=== PATIENT | female | born 1950 | race Caucasian/White ===

== ENCOUNTER 2017-11-26 10:30 | Outpatient (RCR) | payer MEDICARE, OTHER, SELFPAY ==
--- NOTE | 2017-11-05 13:24 | PT.OTN ---
Addendum entered and electronically signed by Kristen Baker, PT 11/05/17 15:43: Transition note: On November 05, 2017 our therapy services consisting of Speech, Occupational, and Physical Therapy transitioned from the [employer] electronic documentation system to a new [employer] electronic documentation system.?? All documentation prior to November 05 can be found under [employer] saved data. From November 05 forward all medical record documentation will be in [employer]. Original Note: Physical Therapy Treatment Note PT-OP-A Visit Information Start: 11/05/17 13:11 Freq: Status: Active Protocol: Activity Type Activity Date Activity User E-Sign Co-Sign Detail Recorded Client Recorded Date Recorded By Document 11/05/17 12:12 Red Aril [id number] 11/05/17 13:24 [facility] 11/05/17 12:12 Out-Patient Physical Therapy Visit Information [Visit Information] -Visit Start Time 12:05 -Visit Stop Time 12:46 -Total Visit Minutes 41 -Visit Number 11 -Number of SYSTEMS PROGRAMMER Visits 0 PT-OP-C Subjective Start: 11/05/17 13:11 Freq: Status: Active Protocol: Activity Type Activity Date Activity User E-Sign Co-Sign Detail Recorded Client Recorded Date Recorded By Document 11/05/17 12:12 DC [id number] 11/05/17 13:24 [facility] 11/05/17 12:12 OP-PT Subjective [Patient Comments] -Patient Comments I am just spectacular today. Pt does note she did not wear her AFO today. -Patient Reported Progress Improving PT-OP-Q Treatments Start: 11/05/17 13:11 Freq: Status: Active Protocol: Activity Type Activity Date Activity User E-Sign Co-Sign Detail Recorded Client Recorded Date Recorded By Document 11/05/17 12:12 Red ArilW [id number] 11/05/17 13:24 [facility] 11/05/17 12:12 Cardio Equipment [Recumbent Bicycle] -Duration (Minutes) 6 -Resistance 6 Gym Equipment [Shuttle Recovery] Unilateral Squats -Resistance 50# -Shuttle Recovery Platform Stable -Reps/Time 5 Bilateral Squats -Resistance 87# -Shuttle Recovery Platform Stable -Reps/Time 5 [Shuttle Balance] 1 -Details Red - Wide ARMANDO, Staggered Stance, Lateral Weight Shift -Reps/Duration 10 Manual Therapy Treatment [Soft Tissue Mobilization] 2 -Body Location Right Lumbar paravertebral musculature -Mobilization Type Sustained Pressure -Intensity/Depth Moderate -Body Position Sidelying 1 -Body Location Right Quadratus Lumborum -Mobilization Type Sustained Pressure -Intensity/Depth Moderate -Body Position Sidelying [Manual Traction] Lumbar -Details Right LE long- axis traction -Body Position Supine -Reps/Duration 5 PT-OP-T Assessment and Plan Start: 11/05/17 13:11 Freq: Status: Active Protocol: Activity Type Activity Date Activity User E-Sign Co-Sign Detail Recorded Client Recorded Date Recorded By Document 11/05/17 12:12 [facility] [id number] 11/05/17 13:24 DCW 11/05/17 12:12 Physical Therapy Assessment [Rehab Potential] -Rehabilitation Potential Good [Impairments] -Impairments Activity Tolerance Balance Coordination Functional Mobility Gait Posture ROM Strength Tone [Progress Towards Goals] -Progress Towards Goals Slow Progress due to Medical Issues [Assessment Summary] -Assessment Pt continues to slowly progress toward goals, limited due to the progressive nature of MS Physical Therapy Plan [Frequency and Duration] -Frequency of Treatment 2x/Week -Plan of Care Start Date 09/10/17 -Plan of Care End Date 12/02/17 [Therapeutic Interventions] -Therapeutic Interventions Aquatic Therapy Balance Training Coordination Training Gait Training Home Exercise Program Joint Mobilizations Manual Therapy Neuromuscular Re-education Soft Tissue Mobilization Therapeutic Activities Therapeutic Exercises [Next Visit Focus/Plan] -Next Visit Plan Continued progression of POC as tolerated Current Diagnoses Multiple sclerosis (11/05/17) Difficulty in walking, not elsewhere classified (11/05/17) Unsteadiness on feet (11/05/17) Weakness (11/05/17) History of falling (11/05/17)
--- NOTE | 2017-11-07 12:52 | PT.OTN ---
Current Diagnoses Multiple sclerosis (11/07/17) Difficulty in walking, not elsewhere classified (11/07/17) Unsteadiness on feet (11/07/17) Weakness (11/07/17) History of falling (11/07/17) Physical Therapy Treatment Note PT-OP-A Visit Information Start: 11/05/17 13:11 Freq: Status: Active Protocol: Activity Type Activity Date Activity User E-Sign Co-Sign Detail Recorded Client Recorded Date Recorded By Document 11/07/17 10:40 [facility] [id number] 11/07/17 12:52 [facility] 11/07/17 10:40 Out-Patient Physical Therapy Visit Information [Visit Information] -Visit Start Time 10:30 -Visit Stop Time 11:10 -Total Visit Minutes 40 -Visit Number 12 -Number of URBAN ANTHROPOLOGIST Visits 0 [Evaluation Information] -Evaluation Date 09/10/17 PT-OP-C Subjective Start: 11/05/17 13:11 Freq: Status: Active Protocol: Activity Type Activity Date Activity User E-Sign Co-Sign Detail Recorded Client Recorded Date Recorded By Document 11/07/17 10:40 [facility] [id number] 11/07/17 12:52 [facility] 11/07/17 10:40 OP-PT Subjective [Patient Comments] -Patient Comments Pt notes she is feeling very good today -Patient Reported Progress Improving PT-OP-Q Treatments Start: 11/05/17 13:11 Freq: Status: Active Protocol: Activity Type Activity Date Activity User E-Sign Co-Sign Detail Recorded Client Recorded Date Recorded By Document 11/07/17 10:40 [facility] [id number] 11/07/17 12:52 [facility] 11/07/17 10:40 Cardio Equipment [Recumbent Bicycle] -Duration (Minutes) 6 -Resistance 6 -Seat Position 5 Gym Equipment [Shuttle Balance] 1 -Details Red - Wide ARMANDO (EO/EC), Staggered Stance -Reps/Duration 10 Manual Therapy Treatment [Soft Tissue Mobilization] 2 -Body Location Right Lumbar paravertebral musculature -Mobilization Type Sustained Pressure -Intensity/Depth Moderate -Body Position Sidelying 1 -Body Location Right Quadratus Lumborum -Mobilization Type Sustained Pressure -Intensity/Depth Moderate -Body Position Sidelying [Manual Traction] Lumbar -Details Right LE long- axis traction -Body Position Supine -Reps/Duration 10 PT-OP-T Assessment and Plan Start: 11/05/17 13:11 Freq: Status: Active Protocol: Activity Type Activity Date Activity User E-Sign Co-Sign Detail Recorded Client Recorded Date Recorded By Document 11/07/17 10:40 [facility] [id number] 11/07/17 12:52 [facility] 11/07/17 10:40 Physical Therapy Assessment [Rehab Potential] -Rehabilitation Potential Good [Impairments] -Impairments Activity Tolerance Balance Coordination Functional Activities Functional Mobility Gait Posture ROM Strength Tone [Other Concerns] -Barriers to Rehabilitation Multiple Sclerosis [Progress Towards Goals] -Progress Towards Goals Slow Progress due to Medical Issues [Assessment Summary] -Assessment Pt continues to report improved symptoms following her PT appointments , and a much easier time walking. Patient does note that it lasts through most of the day , but by the following day, her QL tightness has returned, causing hiking of her right hip. Physical Therapy Plan [Frequency and Duration] -Frequency of Treatment 2x/Week -Plan of Care Start Date 09/10/17 -Plan of Care End Date 12/02/17 [Therapeutic Interventions] -Therapeutic Interventions Aquatic Therapy Balance Training Coordination Training Gait Training Home Exercise Program Joint Mobilizations Manual Therapy Neuromuscular Re-education Soft Tissue Mobilization Therapeutic Activities Therapeutic Exercises [Next Visit Focus/Plan] -Next Visit Plan Continues STM to decrease QL tone, and address strengthening and balance training.
--- NOTE | 2017-11-12 15:20 | PT.OTN ---
Current Diagnoses Multiple sclerosis (11/12/17) Difficulty in walking, not elsewhere classified (11/12/17) Unsteadiness on feet (11/12/17) Weakness (11/12/17) History of falling (11/12/17) Physical Therapy Treatment Note PT-OP-A Visit Information Start: 11/05/17 13:11 Freq: Status: Active Protocol: Activity Type Activity Date Activity User E-Sign Co-Sign Detail Recorded Client Recorded Date Recorded By Document 11/12/17 10:30 [facility] [id number] 11/12/17 15:20 [facility] 11/12/17 10:30 Out-Patient Physical Therapy Visit Information [Visit Information] -Visit Type Treatment Note -Visit Start Time 10:30 -Visit Stop Time 11:15 -Total Visit Minutes 45 -Visit Number 13 -Number of DRAGGER OUT Visits 0 [Evaluation Information] -Evaluation Date 09/10/17 PT-OP-C Subjective Start: 11/05/17 13:11 Freq: Status: Active Protocol: Activity Type Activity Date Activity User E-Sign Co-Sign Detail Recorded Client Recorded Date Recorded By Document 11/12/17 10:30 DC [id number] 11/12/17 15:20 [facility] 11/12/17 10:30 OP-PT Subjective [Patient Comments] -Patient Comments I am splendid. Pt also reports that she knows her number of visits are limited for the year, and while she believes she is benefitting from therapy, she would also like to save some visits for the rest of the year. PT-OP-Q Treatments Start: 11/05/17 13:11 Freq: Status: Active Protocol: Activity Type Activity Date Activity User E-Sign Co-Sign Detail Recorded Client Recorded Date Recorded By Document 11/12/17 10:30 [facility] [id number] 11/12/17 15:20 [facility] 11/12/17 10:30 Cardio Equipment [Recumbent Bicycle] -Duration (Minutes) 6 -Resistance 6 -Seat Position 5 Gym Equipment [Shuttle Recovery] Unilateral Squats -Resistance 50# -Shuttle Recovery Platform Stable -Reps/Time x20 Bilateral Squats -Resistance 87# -Shuttle Recovery Platform Stable -Reps/Time x20 [Shuttle Balance] 1 -Details Red - Wide ARMANDO (EO/EC), Staggered Stance -Reps/Duration 10 Manual Therapy Treatment [Soft Tissue Mobilization] 2 -Body Location Right Lumbar paravertebral musculature -Mobilization Type Sustained Pressure -Intensity/Depth Moderate -Body Position Sidelying 1 -Body Location Right Quadratus Lumborum -Mobilization Type Sustained Pressure -Intensity/Depth Moderate -Body Position Sidelying [Manual Traction] Lumbar -Details Right LE long- axis traction -Body Position Supine -Reps/Duration 10 PT-OP-T Assessment and Plan Start: 11/05/17 13:11 Freq: Status: Active Protocol: Activity Type Activity Date Activity User E-Sign Co-Sign Detail Recorded Client Recorded Date Recorded By Document 11/12/17 10:30 [facility] [id number] 11/12/17 15:20 [facility] 11/12/17 10:30 Physical Therapy Assessment [Rehab Potential] -Rehabilitation Potential Good [Impairments] -Impairments Activity Tolerance Balance Coordination Functional Activities Functional Mobility Gait Posture ROM Strength Tone [Other Concerns] -Barriers to Rehabilitation Multiple Sclerosis [Progress Towards Goals] -Progress Towards Goals Slow Progress due to Medical Issues [Assessment Summary] -Assessment Patient and therapist discussed plan to save some remaining visits for later in the year. Both are in agreement to discharge after the next three visits. Physical Therapy Plan [Frequency and Duration] -Frequency of Treatment 2x/Week -Plan of Care Start Date 09/10/17 -Plan of Care End Date 12/02/17 [Therapeutic Interventions] -Therapeutic Interventions Aquatic Therapy Balance Training Coordination Training Gait Training Home Exercise Program Joint Mobilizations Manual Therapy Neuromuscular Re-education Soft Tissue Mobilization Therapeutic Activities Therapeutic Exercises [Next Visit Focus/Plan] -Next Visit Plan Begin to transfers from skilled therapy to [facility], continued manual therapy, balance training.
--- NOTE | 2017-11-14 13:15 | PT.OTN ---
Current Diagnoses Multiple sclerosis (11/14/17) Difficulty in walking, not elsewhere classified (11/14/17) Unsteadiness on feet (11/14/17) Weakness (11/14/17) History of falling (11/14/17) Physical Therapy Treatment Note PT-OP-A Visit Information Start: 11/05/17 13:11 Freq: Status: Active Protocol: Document 11/14/17 10:30 DCW (Rec: 11/14/17 13:14 DC[facility] [id number]) Out-Patient Physical Therapy Visit Information Visit Information Visit Type Treatment Note Visit Start Time 10:30 Visit Stop Time 11:15 Total Visit Minutes 45 Visit Number 14 Number of STRUCTURAL IRON ERECTOR Visits 0 Evaluation Information Evaluation Date 09/10/17 PT-OP-C Subjective Start: 11/05/17 13:11 Freq: Status: Active Protocol: Document 11/14/17 10:30 DCW (Rec: 11/14/17 13:14 DC[facility] [id number]) OP-PT Subjective Patient Comments Patient Comments Pt reports she had something weird happen on her way here, when she had a spasm in her neck which caused pain radiating up into her head, and it hurt so badly that she had to pull her car over. Pt notes it only lasted 30 seconds, and she is now fine. PT-OP-Q Treatments Start: 11/05/17 13:11 Freq: Status: Active Protocol: Document 11/14/17 10:30 DCW (Rec: 11/14/17 13:14 DCW [id number]) Cardio Equipment Recumbent Bicycle Duration (Minutes) 6 Resistance 6 Seat Position 5 Gym Equipment Shuttle Balance 1 Details Red - Wide ARMANDO (EO/EC), Staggered Stance Reps/Duration 10 Manual Therapy Treatment Soft Tissue Mobilization 2 Body Location Right Lumbar paravertebral musculature Mobilization Type Sustained Pressure Intensity/Depth Moderate Body Position Sidelying 1 Body Location Right Quadratus Lumborum Mobilization Type Sustained Pressure Intensity/Depth Moderate Body Position Sidelying Manual Traction Lumbar Details Right LE long-axis traction Body Position Supine Reps/Duration 12 PT-OP-T Assessment and Plan Start: 11/05/17 13:11 Freq: Status: Active Protocol: Document 11/14/17 10:30 DCW (Rec: 11/14/17 13:14 DCW [id number]) Physical Therapy Assessment Rehab Potential Rehabilitation Potential Good Impairments Impairments Activity Tolerance Balance Coordination Functional Activities Functional Mobility Gait Posture ROM Strength Tone Other Concerns Barriers to Rehabilitation Multiple Sclerosis Progress Towards Goals Progress Towards Goals Slow Progress due to Medical Issues Assessment Summary Assessment Therapist and patient reviewed her HEP today, working toward planned discharge next week. Physical Therapy Plan Frequency and Duration Frequency of Treatment 2x/Week Plan of Care Start Date 09/10/17 Plan of Care End Date 12/02/17 Therapeutic Interventions Therapeutic Interventions Aquatic Therapy Balance Training Coordination Training Gait Training Home Exercise Program Joint Mobilizations Manual Therapy Neuromuscular Re-education Soft Tissue Mobilization Therapeutic Activities Therapeutic Exercises Next Visit Focus/Plan Next Visit Plan Continue current ongoing plan of care.
--- NOTE | 2017-11-26 17:47 | PT.OTN ---
Current Diagnoses Multiple sclerosis (11/26/17) Difficulty in walking, not elsewhere classified (11/26/17) Unsteadiness on feet (11/26/17) Weakness (11/26/17) History of falling (11/26/17) Physical Therapy Treatment Note PT-OP-A Visit Information Start: 11/05/17 13:11 Freq: Status: Active Protocol: Document 11/26/17 10:30 DCW (Rec: 11/26/17 17:47 DCW [id number]) Out-Patient Physical Therapy Visit Information Visit Information Visit Type Treatment Note Visit Start Time 10:30 Visit Stop Time 11:15 Total Visit Minutes 45 Visit Number 15 Number of CLINICAL OPERATIONS MANAGER Visits 0 Evaluation Information Evaluation Date 09/10/17 PT-OP-B Current Condition Start: 11/05/17 13:11 Freq: Status: Active Protocol: Document 11/26/17 10:30 DCW (Rec: 11/26/17 17:47 DCW [id number]) Current Condition History of Current Condition Current Complaints Weakness and imbalance d/t MS History of Current Condition Please see patient's notes in Therapy [facility] for full history PT-OP-C Subjective Start: 11/05/17 13:11 Freq: Status: Active Protocol: Document 11/26/17 10:30 DCW (Rec: 11/26/17 17:47 DCW [id number]) OP-PT Subjective Patient Comments Patient Comments Pt reports she will be leaving the state for a week, and would like to end therapy one visit early. Pt was originally planning to end to conserve visits for later in the year. Patient Reported Progress Improving PT-OP-D Balance Start: 11/26/17 17:28 Freq: Status: Active Protocol: Document 11/26/17 10:30 DCW (Rec: 11/26/17 17:47 DCW [id number]) Balance Tests Eaton Balance Test Eaton Balance Test Score 53 Eaton Impairment Rating 1 to 19% Impaired (Score 45-55 ) Eaton Balance Assessment Evaluation Sitting to Standing Ability Independent w/out Hands Unsupported Stance Safely- 2 minutes Sitting Unsupported, Feet on Floor Safely- 2 minutes Standing to Sitting Ability Safely, Minimal Hand Use Transfer Ability Safely, Minimal Hand Use Unsupported Stance- Eyes Closed Safely, 10 seconds Unsupported Stance- Eyes Open Independent, 1 minute Reaching Forward Standing Confidently, 10 inches Pick- Up Object From Floor Independent/Safe Look Behind Shoulder - Standing Shifts Weight Well Turning 360 Degrees Turns Bilateral, < 4 secs Unsupported Stance, Alternating Feet on 4 Steps w/Supervision Stair Unsupported Tandem Stance Achieves Tandem Unilateral Leg Stance Lifts Leg/Holds 5-10 secs Total Score Eaton Total Score (out of 56 points) 53 Eaton Impairment Rating 1 to 19% Impaired (Score 45-55 ) PT-OP-E Functional Tests Start: 11/26/17 17:28 Freq: Status: Active Protocol: Document 11/26/17 10:30 DCW (Rec: 11/26/17 17:47 DCW [id number]) Functional Tests Dynamic Gait Index (DGI) Score 18 DGI Impairment Rating 20 to <40% Impaired (Score 15- 19) Timed Up and Go (TUG) Score 10.66 Comments 3 trial average, no AD TUG Impairment Rating 1 to <20% Impaired (Score 11) PT-OP-M Strength Start: 11/26/17 17:28 Freq: Status: Active Protocol: Document 11/26/17 10:30 DCW (Rec: 11/26/17 17:47 DCW [id number]) Hip Strength Hip Manual Muscle Testing Right Flexion (L2) 4 Good Abduction 4 Good Adduction 5 Normal Left Flexion (L2) 4+ Good+ Abduction 4+ Good+ Adduction 5 Normal Knee Strength Knee Manual Muscle Testing Right Flexion (S2) 4- Good- Extension (L3) 4+ Good+ Left Flexion (S2) 5 Normal Extension (L3) 5 Normal PT-OP-Q Treatments Start: 11/05/17 13:11 Freq: Status: Active Protocol: Document 11/26/17 10:30 DCW (Rec: 11/26/17 17:47 DCW [id number]) Cardio Equipment Recumbent Bicycle Duration (Minutes) 6 Resistance 6 Seat Position 5 Manual Therapy Treatment Soft Tissue Mobilization 2 Body Location Right Lumbar paravertebral musculature Mobilization Type Sustained Pressure Intensity/Depth Moderate Body Position Sidelying 1 Body Location Right Quadratus Lumborum Mobilization Type Sustained Pressure Intensity/Depth Moderate Body Position Sidelying Manual Traction Lumbar Details Right LE long-axis traction Body Position Supine Reps/Duration 12 Neuro Re-Education Treatment Balance Activities 1 Details Eaton, DGI, TUG testing PT-OP-T Assessment and Plan Start: 11/05/17 13:11 Freq: Status: Active Protocol: Document 11/26/17 10:30 DCW (Rec: 11/26/17 17:47 DCW [id number]) Physical Therapy Assessment Rehab Potential Rehabilitation Potential Good Impairments Impairments Activity Tolerance Balance Coordination Functional Activities Functional Mobility Gait Posture ROM Strength Tone Other Concerns Barriers to Rehabilitation Multiple Sclerosis Goals Five Impairment DGI Boy'S Adviser Goal (LTG) Pt to score at least 18/23 LTG Duration MET Four Impairment Eaton Snf Goal (LTG) Pt to score at least 52/56 LTG Duration MET Three Impairment TUG Snf Goal (LTG) Pt to score an average less than 10 seconds across three trials LTG Duration 11/26/17 Two Impairment Weakness Boy'S Adviser Goal (LTG) Pt LE hip and knee MMT to 4/5 LTG Duration 11/26/17 One Impairment Stairs Boy'S Adviser Goal (LTG) Pt to ascend stairs reciprocal gait, no railing LTG Duration 11/26/17 Progress Towards Goals Progress Towards Goals Slow Progress due to Medical Issues Progress Comments MS Assessment Summary Assessment Pt improved in all balance tests, meeting her goals for the DGI and Eaton. Due to the progressive nature of MS, full recovery is unlikely. Pt has decided to conserve remaining appointments for later in the year. Physical Therapy Plan Therapeutic Interventions Therapeutic Interventions Aquatic Therapy Balance Training Coordination Training Gait Training Home Exercise Program Joint Mobilizations Manual Therapy Neuromuscular Re-education Soft Tissue Mobilization Therapeutic Activities Therapeutic Exercises Discharge Physical Therapy Discharge Reasons Patient Request Discharge Comments Pt would like to return to therapy later in the year Next Visit Focus/Plan Next Visit Plan Discharge
== END 2017-11-27 10:51 ==
LOC: PHYS 10:30
PROVIDERS: Family Provider Internal Medicine; PCP Internal Medicine; Visit Provider Psychiatry & Neurology Neurology
DX: G35 Multiple sclerosis (principal); R26.81 Unsteadiness on feet; R53.1 Weakness; Z91.81 History of falling
CPT/HCPCS: 97110; 97112; 97140

== ENCOUNTER → 2017-12-23 12:35 | Outpatient (CLI) | payer MEDICARE, OTHER, SELFPAY ==
--- NOTE | 2017-12-23 | DI.MG.S_ITS ---
BILATERAL DIGITAL SCREENING MAMMOGRAM 3D/2D WITH CAD: 12/23/2017 CLINICAL: Patient presents for routine screening. S/P bilateral augmentation. Family history of breast cancer. Comparison is made to exams dated: 11/01/2016 mammogram, 09/07/2015 mammogram, and 08/30/2015 mammogram - [facility]. There are scattered fibroglandular elements in both breasts. Current study was also evaluated with a Computer Aided Detection (CAD) system. Right breast implant is intact. No significant masses, calcifications, or other findings are seen in either breast. There has been no significant interval change. IMPRESSION: NEGATIVE There is no mammographic evidence of malignancy. A 1 year screening mammogram is recommended. This exam was interpreted at Station ID: [id number]. NOTE: For mammograms, a report in lay terms will be sent to the patient. Approximately 15% of breast malignancies will not be visualized mammographically. In the management of a palpable breast mass, a negative mammogram must not discourage biopsy of a clinically suspicious lesion. Electronically Signed By: Raúl grimes/belinda:12/23/2017 17:51:15 letter sent: Normal Exam ACR BI-RADS Category 1: Negative [id number]
== END ==
PROVIDERS: Family Provider Internal Medicine; PCP Internal Medicine; Visit Provider Internal Medicine
DX: Z12.31 Encounter for screening mammogram for malignant neoplasm of breast (principal); Z80.3 Family history of malignant neoplasm of breast; Z98.82 Breast implant status
CPT/HCPCS: 77063; 77067

== ENCOUNTER 2018-08-06 13:45 | Outpatient (RCR) | payer MEDICARE, OTHER, SELFPAY ==
--- NOTE | 2018-04-15 13:45 | PT.OIE ---
Current Diagnoses Multiple sclerosis (04/15/18) Benign paroxysmal vertigo, right ear (04/15/18) Muscle weakness (generalized) (04/15/18) Other abnormalities of gait and mobility (04/15/18) Provider Visit Care Team Role Provider Type Erik Hernandez MD Attending Provider Physician Family Provider Primary Care Provider Specialty: Internal Medicine Address: [address] [place] [address], [facility] Email: Physical Therapy Initial Evaluation PT-OP-A Visit Information Start: 04/15/18 13:19 Freq: Status: Active Protocol: Document 04/15/18 12:10 DCW (Rec: 04/15/18 13:42 DCW [id number]) Out-Patient Physical Therapy Visit Information Visit Information Visit Type Initial Evaluation Visit Note Began ten minutes late due to paperwork Visit Start Time 12:10 Visit Stop Time 12:50 Total Visit Minutes 40 Visit Number 1 Number of FISHING GAME WARDEN Visits 0 Evaluation Information Evaluation Date 04/15/18 PT-OP-B Current Condition Start: 04/15/18 13:19 Freq: Status: Active Protocol: Document 04/15/18 12:10 DCW (Rec: 04/15/18 13:42 DCW [id number]) Current Condition History of Current Condition Onset Date Multi-year history of Multiple Sclerosis Current Complaints Right leg weakness, dizziness, gait difficulty, decreased walking tolerance History of Current Condition Pt is a 67 year old female well known to this clinic returning due to complications secondary to MS, as well as recent complaints of position- dependent vertigo. Pt reports she has been noticing that her right leg has been wasting significantly, and it has impacted her ability to walk, go out dancing, and get in and out of bed. Additionally, she has been experiencing 10-15 second bouts of dizziness when rolling in bed to her right side. Notes that her boyfriend saw my eyes shaking all over the place when I rolled over, so she was taken to the Urgent care clinic and diagnosed with BPPV, and given home exercises and Meclizine. Prior Treatments and Tests Prior history of PT, home treatment for BPPV Treatment Goals Patient/Caregiver Goals Pt wants to get back to walking increased distances without tiring out, return to dancing, and improve her ability to get her right leg in to and out of bed. Prior Functional Status Baseline Function- ADL's Modified Independent Baseline Function- Mobility Modified Independent Baseline Function- Gait Typically uses SPC, wears right AFO Current Functional Impairments (Reported) Functional Limitations- Mobility/Gait Decreased gait tolerance, becomes off-balance with quick head movements. Functional Limitations- Recreation/ Unable to go out dancing Hobbies PT-OP-C Subjective Start: 04/15/18 13:19 Freq: Status: Active Protocol: Document 04/15/18 12:10 DCW (Rec: 04/15/18 13:42 DCW [id number]) OP-PT Subjective Patient Comments Patient Comments Other than the dizziness and my right leg, I'm feeling fantastic. PT-OP-D Balance Start: 04/15/18 13:19 Freq: Status: Active Protocol: Document 04/15/18 12:10 DCW (Rec: 04/15/18 13:42 DCW [id number]) OP-PT Balance Assessment Sitting Balance Static Sitting Balance Ability Normal Dynamic Sitting Balance Ability Normal Standing Balance Static Standing Balance Ability Good Dynamic Standing Balance Ability Fair Posada Fall Scale Copyright Permission Albino JM, Albino RM, Marisabel SJ. Development of a scale to identify the fall- prone patient. Can J Aging 1989;8;366-7. Halima Posada (2009). Preventing patient falls. (2nd ed). [place]: Siddiqi. PT-OP-E Functional Tests Start: 04/15/18 13:19 Freq: Status: Active Protocol: Document 04/15/18 12:10 DCW (Rec: 04/15/18 13:42 DCW [id number]) Functional Tests Dynamic Gait Index (DGI) Score 13/24 DGI Impairment Rating 40 to <60% Impaired (Score 10- 14) Timed Up and Go (TUG) Score 10.26 Comments Three-trial average TUG Impairment Rating 1 to <20% Impaired (Score 11) PT-OP-J Posture/Palpation/Skin Start: 04/15/18 13:42 Freq: Status: Active Protocol: Document 04/15/18 12:10 DCW (Rec: 04/15/18 13:45 DCW [id number]) Palpation Assessment Location Right lower extremity Palpation Details Noticeable atrophy/muscle wasting of right LE, most notably her right calf PT-OP-M Strength Start: 04/15/18 13:42 Freq: Status: Active Protocol: Document 04/15/18 12:10 DCW (Rec: 04/15/18 13:45 DCW [id number]) Hip Strength Hip Manual Muscle Testing Right Flexion (L2) 3+ Fair+ Abduction 4- Good- Adduction 4 Good Left Flexion (L2) 4+ Good+ Abduction 4- Good- Adduction 4 Good Knee Strength Knee Manual Muscle Testing Right Flexion (S2) 4 Good Extension (L3) 4- Good- Left Flexion (S2) 4+ Good+ Extension (L3) 4+ Good+ Ankle/Foot Strength Ankle and Foot Manual Muscle Testing Right Dorsiflexion (L4) 4- Good- Plantarflexion (S1) 3+ Fair+ Left Dorsiflexion (L4) 4 Good Plantarflexion (S1) 4 Good PT-OP-O Vestibular Start: 04/15/18 13:19 Freq: Status: Active Protocol: Document 04/15/18 12:10 DCW (Rec: 04/15/18 13:42 DCW [id number]) Vestibular Assessment Positional Testing [place]-Hallpike Positive Right Negative Left < 60 Seconds PT-OP-Q Treatments Start: 04/15/18 13:19 Freq: Status: Active Protocol: Document 04/15/18 12:10 DCW (Rec: 04/15/18 13:42 DCW [id number]) Canalithic Repositioning BPPV Treatment [place] Affected Canal(s) Right posterior Reps 1 Comments Pt complained of symptoms in the first and third position, which is normally indicative of a successful treatment. PT-OP-T Assessment and Plan Start: 04/15/18 13:19 Freq: Status: Active Protocol: Document 04/15/18 12:10 DCW (Rec: 04/15/18 13:42 DCW [id number]) Physical Therapy Assessment Rehab Potential Rehabilitation Potential Good Evaluation Complexity Number of Personal Factors/Comorbidities 1-2 Number of Body Systems Impaired 4 or More Clinical Presentation at Evaluation Unstable Impairments Impairments Activity Tolerance Balance Gait Strength Tone Vestibular Other Concerns Fall Risk DGI Barriers to Rehabilitation MS Goals Four Impairment Positive right [place]-Hallpike Short Term Goal (STG) Bilateral [place]-Hallpike negative Three Impairment LE MMT Assurance Specialist Goal (LTG) Right LE MMT grossly to 4/5 LTG Duration 06/15/18 Two Impairment DGI Assurance Specialist Goal (LTG) Pt to score at least 18/23 LTG Duration 06/15/18 One Impairment Activity Participation Assurance Specialist Goal (LTG) Pt to return to dancing with boyfriend one night a week LTG Duration 06/15/18 Assessment Summary Assessment Pt presents with a decline in function from her prior discharge level secondary to Multiple Sclerosis. Additionally, during right [place] -Hallpike test, pt complained of vertigo and demonstrated up -beating, torsional nystagmus lasting approximately 5 seconds, consistent with diagnosis of right-sided posterior canal BPPV, canalithiasis-type. Treatment of her BPPV should largely help with many of her positional complaints, however when pt was previously treated at this clinic, she had on-going complaints of dizziness that were not BPPV, and likely were caused by her MS, which is unlikely to respond to vestibular therapy. Pt should also improve with LE strength, dynamic balance, and activity tolerance back to or near her prior discharge levels. Physical Therapy Plan Frequency and Duration Frequency of Treatment 2x/Week Duration of Treatment 10 weeks Plan of Care Start Date 04/15/18 Plan of Care End Date 06/24/18 Therapeutic Interventions Therapeutic Interventions Aquatic Therapy Balance Training Canalithic Repositioning Gait Training Home Exercise Program Manual Therapy Soft Tissue Mobilization Therapeutic Activities Therapeutic Exercises Vestibular Rehabilitation Next Visit Focus/Plan Next Note Type Treatment Note Next Visit Plan Reassess vestibular component, additional balance and LE testing, gait training, strengthening
--- NOTE | 2018-04-15 13:46 | PT.OPPOC ---
Current Diagnoses Multiple sclerosis (04/15/18) Benign paroxysmal vertigo, right ear (04/15/18) Muscle weakness (generalized) (04/15/18) Other abnormalities of gait and mobility (04/15/18) Provider Visit Care Team Role Provider Type Erik Hernandez MD Attending Provider Physician Family Provider Primary Care Provider Specialty: Internal Medicine Address: [address] [place] [address], [facility] Email: Plan Of Care PT-OP-T Assessment and Plan Start: 04/15/18 13:19 Freq: Status: Active Protocol: Document 04/15/18 12:10 DCW (Rec: 04/15/18 13:42 DCW [id number]) Physical Therapy Assessment Rehab Potential Rehabilitation Potential Good Evaluation Complexity Number of Personal Factors/Comorbidities 1-2 Number of Body Systems Impaired 4 or More Clinical Presentation at Evaluation Unstable Impairments Impairments Activity Tolerance Balance Gait Strength Tone Vestibular Other Concerns Fall Risk DGI Barriers to Rehabilitation MS Goals Four Impairment Positive right [place]-Hallpike Short Term Goal (STG) Bilateral [place]-Hallpike negative Three Impairment LE MMT Senior Living Goal (LTG) Right LE MMT grossly to 4/5 LTG Duration 06/15/18 Two Impairment DGI Senior Living Goal (LTG) Pt to score at least 18/23 LTG Duration 06/15/18 One Impairment Activity Participation Senior Living Goal (LTG) Pt to return to dancing with boyfriend one night a week LTG Duration 06/15/18 Assessment Summary Assessment Pt presents with a decline in function from her prior discharge level secondary to Multiple Sclerosis. Additionally, during right [place] -Hallpike test, pt complained of vertigo and demonstrated up -beating, torsional nystagmus lasting approximately 5 seconds, consistent with diagnosis of right-sided posterior canal BPPV, canalithiasis-type. Treatment of her BPPV should largely help with many of her positional complaints, however when pt was previously treated at this clinic, she had on-going complaints of dizziness that were not BPPV, and likely were caused by her MS, which is unlikely to respond to vestibular therapy. Pt should also improve with LE strength, dynamic balance, and activity tolerance back to or near her prior discharge levels. Physical Therapy Plan Frequency and Duration Frequency of Treatment 2x/Week Duration of Treatment 10 weeks Plan of Care Start Date 04/15/18 Plan of Care End Date 06/24/18 Therapeutic Interventions Therapeutic Interventions Aquatic Therapy Balance Training Canalithic Repositioning Gait Training Home Exercise Program Manual Therapy Soft Tissue Mobilization Therapeutic Activities Therapeutic Exercises Vestibular Rehabilitation Next Visit Focus/Plan Next Note Type Treatment Note Next Visit Plan Reassess vestibular component, additional balance and LE testing, gait training, strengthening Plan of Care Dates Plan of Care Start Date 04/15/18 Plan of Care End Date 06/24/18 Please Sign and Return: I have reviewed this Plan of Care and certify that the skilled therapy services above are required to meet the patient?s needs. Physician Signature Date Printed Name and Credentials Clinical Instructor Signature Printed Name and Credentials
--- NOTE | 2018-04-16 11:56 | PT.OTN ---
Current Diagnoses Multiple sclerosis (04/16/18) Physical Therapy Treatment Note PT-OP-A Visit Information Start: 04/15/18 13:19 Freq: Status: Active Protocol: Document 04/16/18 11:15 DCW (Rec: 04/16/18 11:56 DCW [id number]) Out-Patient Physical Therapy Visit Information Visit Information Visit Type Treatment Note Visit Start Time 11:15 Visit Stop Time 12:00 Total Visit Minutes 45 Visit Number 2 Number of CORE FINISHER Visits 0 Evaluation Information Evaluation Date 04/15/18 PT-OP-B Current Condition Start: 04/15/18 13:19 Freq: Status: Active Protocol: Document 04/15/18 12:10 DCW (Rec: 04/15/18 13:42 DCW [id number]) Current Condition History of Current Condition Onset Date Multi-year history of Multiple Sclerosis Current Complaints Right leg weakness, dizziness, gait difficulty, decreased walking tolerance History of Current Condition Pt is a 67 year old female well known to this clinic returning due to complications secondary to MS, as well as recent complaints of position- dependent vertigo. Pt reports she has been noticing that her right leg has been wasting significantly, and it has impacted her ability to walk, go out dancing, and get in and out of bed. Additionally, she has been experiencing 10-15 second bouts of dizziness when rolling in bed to her right side. Notes that her boyfriend saw my eyes shaking all over the place when I rolled over, so she was taken to the Urgent care clinic and diagnosed with BPPV, and given home exercises and Meclizine. Prior Treatments and Tests Prior history of PT, home treatment for BPPV Treatment Goals Patient/Caregiver Goals Pt wants to get back to walking increased distances without tiring out, return to dancing, and improve her ability to get her right leg in to and out of bed. Prior Functional Status Baseline Function- ADL's Modified Independent Baseline Function- Mobility Modified Independent Baseline Function- Gait Typically uses SPC, wears right AFO Current Functional Impairments (Reported) Functional Limitations- Mobility/Gait Decreased gait tolerance, becomes off-balance with quick head movements. Functional Limitations- Recreation/ Unable to go out dancing Hobbies PT-OP-C Subjective Start: 04/15/18 13:19 Freq: Status: Active Protocol: Document 04/16/18 11:15 DCW (Rec: 04/16/18 11:56 DCW [id number]) OP-PT Subjective Patient Comments Patient Comments My dizziness didn't really bother me last night. PT-OP-D Balance Start: 04/15/18 13:19 Freq: Status: Active Protocol: Document 04/15/18 12:10 DCW (Rec: 04/15/18 13:42 DCW [id number]) OP-PT Balance Assessment Sitting Balance Static Sitting Balance Ability Normal Dynamic Sitting Balance Ability Normal Standing Balance Static Standing Balance Ability Good Dynamic Standing Balance Ability Fair Posada Fall Scale Copyright Permission Albino JM, Albino RM, Marisabel SJ. Development of a scale to identify the fall- prone patient. Can J Aging 1989;8;366-7. Halima Posada (2009). Preventing patient falls. (2nd ed). [place]: Siddiqi. PT-OP-E Functional Tests Start: 04/15/18 13:19 Freq: Status: Active Protocol: Document 04/15/18 12:10 DCW (Rec: 04/15/18 13:42 DCW [id number]) Functional Tests Dynamic Gait Index (DGI) Score 13/24 DGI Impairment Rating 40 to <60% Impaired (Score 10- 14) Timed Up and Go (TUG) Score 10.26 Comments Three-trial average TUG Impairment Rating 1 to <20% Impaired (Score 11) PT-OP-J Posture/Palpation/Skin Start: 04/15/18 13:42 Freq: Status: Active Protocol: Document 04/15/18 12:10 DCW (Rec: 04/15/18 13:45 DCW [id number]) Palpation Assessment Location Right lower extremity Palpation Details Noticeable atrophy/muscle wasting of right LE, most notably her right calf PT-OP-M Strength Start: 04/15/18 13:42 Freq: Status: Active Protocol: Document 04/15/18 12:10 DCW (Rec: 04/15/18 13:45 DCW [id number]) Hip Strength Hip Manual Muscle Testing Right Flexion (L2) 3+ Fair+ Abduction 4- Good- Adduction 4 Good Left Flexion (L2) 4+ Good+ Abduction 4- Good- Adduction 4 Good Knee Strength Knee Manual Muscle Testing Right Flexion (S2) 4 Good Extension (L3) 4- Good- Left Flexion (S2) 4+ Good+ Extension (L3) 4+ Good+ Ankle/Foot Strength Ankle and Foot Manual Muscle Testing Right Dorsiflexion (L4) 4- Good- Plantarflexion (S1) 3+ Fair+ Left Dorsiflexion (L4) 4 Good Plantarflexion (S1) 4 Good PT-OP-O Vestibular Start: 04/15/18 13:19 Freq: Status: Active Protocol: Document 04/16/18 11:15 DCW (Rec: 04/16/18 11:56 DCW [id number]) Vestibular Assessment Positional Testing [place]-Hallpike Negative Left Negative Right PT-OP-Q Treatments Start: 04/15/18 13:19 Freq: Status: Active Protocol: Document 04/16/18 11:15 DCW (Rec: 04/16/18 11:56 DCW [id number]) Cardio Equipment Recumbent Bicycle Duration (Minutes) 5 Resistance 2 Seat Position 3 Other Without AFO Gym Equipment Shuttle Recovery Bilateral Heel Raises Resistance 75# Shuttle Recovery Platform Stable Reps/Time without AFO Unilateral Squats Resistance 50# Shuttle Recovery Platform Stable Reps/Time x20 - without AFO Bilateral Squats Resistance 87# Shuttle Recovery Platform Stable Reps/Time x20 - without AFO Therapeutic Exercises Sitting Exercises 4-way Ankle flexion Sitting Exercise Name Ankle PF/DF/Inv/Ev Side right Resistance Lv 2 Equipment Used T-band Neuro Re-Education Treatment Other Activities Hallpike testing Details Negative hallpike bilaterally PT-OP-T Assessment and Plan Start: 04/15/18 13:19 Freq: Status: Active Protocol: Document 04/16/18 11:15 DCW (Rec: 04/16/18 11:56 DCW [id number]) Physical Therapy Assessment Impairments Impairments Activity Tolerance Balance Gait Strength Tone Vestibular Goals Four Impairment Positive right [place]-Hallpike Short Term Goal (STG) Bilateral [place]-Hallpike negative Three Impairment LE MMT Long-Term Goal (LTG) Right LE MMT grossly to 4/5 LTG Duration 06/15/18 Two Impairment DGI Long-Term Goal (LTG) Pt to score at least 18/23 LTG Duration 06/15/18 One Impairment Activity Participation [place] Operator Goal (LTG) Pt to return to dancing with boyfriend one night a week LTG Duration 06/15/18 Assessment Summary Assessment Pt tolerated new exercises well, but did note her right ankle fatigued quickly. No continued symptoms of BPPV, will check periodically as indicated by pt complaints. Physical Therapy Plan Frequency and Duration Frequency of Treatment 2x/Week Duration of Treatment 10 weeks Plan of Care Start Date 04/15/18 Plan of Care End Date 06/24/18 Therapeutic Interventions Therapeutic Interventions Aquatic Therapy Balance Training Canalithic Repositioning Gait Training Home Exercise Program Manual Therapy Soft Tissue Mobilization Therapeutic Activities Therapeutic Exercises Vestibular Rehabilitation Next Visit Focus/Plan Next Note Type Treatment Note Next Visit Plan Additional balance and LE testing, gait training, strengthening
--- NOTE | 2018-04-22 11:16 | PT.OTN ---
Current Diagnoses Multiple sclerosis (04/22/18) Physical Therapy Treatment Note PT-OP-A Visit Information Start: 04/15/18 13:19 Freq: Status: Active Protocol: Document 04/22/18 10:30 DCW (Rec: 04/22/18 11:16 DCW [id number]) Out-Patient Physical Therapy Visit Information Visit Information Visit Type Treatment Note Visit Start Time 10:30 Visit Stop Time 11:15 Total Visit Minutes 45 Visit Number 3 Number of FURNACE COMBUSTION TESTER Visits 0 Evaluation Information Evaluation Date 04/15/18 PT-OP-B Current Condition Start: 04/15/18 13:19 Freq: Status: Active Protocol: Document 04/15/18 12:10 DCW (Rec: 04/15/18 13:42 DCW [id number]) Current Condition History of Current Condition Onset Date Multi-year history of Multiple Sclerosis Current Complaints Right leg weakness, dizziness, gait difficulty, decreased walking tolerance History of Current Condition Pt is a 67 year old female well known to this clinic returning due to complications secondary to MS, as well as recent complaints of position- dependent vertigo. Pt reports she has been noticing that her right leg has been wasting significantly, and it has impacted her ability to walk, go out dancing, and get in and out of bed. Additionally, she has been experiencing 10-15 second bouts of dizziness when rolling in bed to her right side. Notes that her boyfriend saw my eyes shaking all over the place when I rolled over, so she was taken to the Urgent care clinic and diagnosed with BPPV, and given home exercises and Meclizine. Prior Treatments and Tests Prior history of PT, home treatment for BPPV Treatment Goals Patient/Caregiver Goals Pt wants to get back to walking increased distances without tiring out, return to dancing, and improve her ability to get her right leg in to and out of bed. Prior Functional Status Baseline Function- ADL's Modified Independent Baseline Function- Mobility Modified Independent Baseline Function- Gait Typically uses SPC, wears right AFO Current Functional Impairments (Reported) Functional Limitations- Mobility/Gait Decreased gait tolerance, becomes off-balance with quick head movements. 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 Notes she is still sleeping on two pillows. PT-OP-D Balance Start: 04/15/18 13:19 Freq: Status: Active Protocol: Document 04/15/18 12:10 DCW (Rec: 04/15/18 13:42 DCW [id number]) OP-PT Balance Assessment Sitting Balance Static Sitting Balance Ability Normal Dynamic Sitting Balance Ability Normal Standing Balance Static Standing Balance Ability Good Dynamic Standing Balance Ability Fair Posada Fall Scale Copyright Permission Albino VINSON, Albino RM, Marisabel SJ. Development of a scale to identify the fall- prone patient. Can J Aging 1989;8;366-7. Halima Posada (2009). Preventing patient falls. (2nd ed). [place]: Siddiqi. PT-OP-E Functional Tests Start: 04/15/18 13:19 Freq: Status: Active Protocol: Document 04/15/18 12:10 DCW (Rec: 04/15/18 13:42 DCW [id number]) Functional Tests Dynamic Gait Index (DGI) Score 13/24 DGI Impairment Rating 40 to <60% Impaired (Score 10- 14) Timed Up and Go (TUG) Score 10.26 Comments Three-trial average TUG Impairment Rating 1 to <20% Impaired (Score 11) PT-OP-J Posture/Palpation/Skin Start: 04/15/18 13:42 Freq: Status: Active Protocol: Document 04/15/18 12:10 DCW (Rec: 04/15/18 13:45 DCW [id number]) Palpation Assessment Location Right lower extremity Palpation Details Noticeable atrophy/muscle wasting of right LE, most notably her right calf PT-OP-M Strength Start: 04/15/18 13:42 Freq: Status: Active Protocol: Document 04/15/18 12:10 DCW (Rec: 04/15/18 13:45 DCW [id number]) Hip Strength Hip Manual Muscle Testing Right Flexion (L2) 3+ Fair+ Abduction 4- Good- Adduction 4 Good Left Flexion (L2) 4+ Good+ Abduction 4- Good- Adduction 4 Good Knee Strength Knee Manual Muscle Testing Right Flexion (S2) 4 Good Extension (L3) 4- Good- Left Flexion (S2) 4+ Good+ Extension (L3) 4+ Good+ Ankle/Foot Strength Ankle and Foot Manual Muscle Testing Right Dorsiflexion (L4) 4- Good- Plantarflexion (S1) 3+ Fair+ Left Dorsiflexion (L4) 4 Good Plantarflexion (S1) 4 Good PT-OP-O Vestibular Start: 04/15/18 13:19 Freq: Status: Active Protocol: Document 04/16/18 11:15 DCW (Rec: 04/16/18 11:56 DCW [id number]) Vestibular Assessment Positional Testing [place]-Hallpike Negative Left Negative Right PT-OP-Q Treatments Start: 04/15/18 13:19 Freq: Status: Active Protocol: Document 04/22/18 10:30 DCW (Rec: 04/22/18 11:16 DCW [id number]) Cardio Equipment Recumbent Bicycle Duration (Minutes) 5 Resistance 2 Seat Position 3 Other Without AFO Gym Equipment Shuttle Recovery Bilateral Heel Raises Resistance 75# Shuttle Recovery Platform Stable Reps/Time without AFO Unilateral Squats Resistance 50# Shuttle Recovery Platform Stable Reps/Time x20 - without AFO Bilateral Squats Resistance 87# Shuttle Recovery Platform Stable Reps/Time x20 - without AFO Shuttle Balance 1 Details Red - Wide ARMANDO (EO/EC, head turns), Staggered Stance Therapeutic Exercises Sitting Exercises 4-way Ankle flexion Sitting Exercise Name Ankle PF/DF/Inv/Ev Side bilateral Resistance Lv 2 Equipment Used T-band Comments x20 each PT-OP-T Assessment and Plan Start: 04/15/18 13:19 Freq: Status: Active Protocol: Document 04/22/18 10:30 DCW (Rec: 04/22/18 11:16 DCW [id number]) Physical Therapy Assessment Impairments Impairments Activity Tolerance Balance Gait Strength Tone Vestibular Goals Four Impairment Positive right [place]-Hallpike Short Term Goal (STG) Bilateral [place]-Hallpike negative STG Duration 05/16/18 Three Impairment LE MMT Retirement Goal (LTG) Right LE MMT grossly to 4/5 LTG Duration 06/15/18 Two Impairment DGI Early Intervention School Psychologist Goal (LTG) Pt to score at least 18/23 LTG Duration 06/15/18 One Impairment Activity Participation Early Intervention School Psychologist Goal (LTG) Pt to return to dancing with boyfriend one night a week LTG Duration 06/15/18 Assessment Summary Assessment Pt did well today, able to demonstrate independence with her HEP. Physical Therapy Plan Frequency and Duration Frequency of Treatment 2x/Week Duration of Treatment 10 weeks Plan of Care Start Date 04/15/18 Plan of Care End Date 06/24/18 Therapeutic Interventions Therapeutic Interventions Aquatic Therapy Balance Training Canalithic Repositioning Gait Training Home Exercise Program Manual Therapy Soft Tissue Mobilization Therapeutic Activities Therapeutic Exercises Vestibular Rehabilitation Next Visit Focus/Plan Next Note Type Treatment Note Next Visit Plan Additional balance and LE testing, gait training, strengthening
--- NOTE | 2018-04-24 10:40 | PT.OTN ---
Current Diagnoses Multiple sclerosis (04/24/18) Physical Therapy Treatment Note PT-OP-A Visit Information Start: 04/15/18 13:19 Freq: Status: Active Protocol: Document 04/24/18 09:46 SAK (Rec: 04/24/18 10:31 SAK [id number]) Out-Patient Physical Therapy Visit Information Visit Information Visit Type Treatment Note Visit Start Time 09:45 Visit Stop Time 10:30 Total Visit Minutes 45 Visit Number 4 Number of SUPERVISOR COAL HANDLING Visits 0 Evaluation Information Evaluation Date 04/15/18 PT-OP-B Current Condition Start: 04/15/18 13:19 Freq: Status: Active Protocol: Document 04/15/18 12:10 DCW (Rec: 04/15/18 13:42 DCW [id number]) Current Condition History of Current Condition Onset Date Multi-year history of Multiple Sclerosis Current Complaints Right leg weakness, dizziness, gait difficulty, decreased walking tolerance History of Current Condition Pt is a 67 year old female well known to this clinic returning due to complications secondary to MS, as well as recent complaints of position- dependent vertigo. Pt reports she has been noticing that her right leg has been wasting significantly, and it has impacted her ability to walk, go out dancing, and get in and out of bed. Additionally, she has been experiencing 10-15 second bouts of dizziness when rolling in bed to her right side. Notes that her boyfriend saw my eyes shaking all over the place when I rolled over, so she was taken to the Urgent care clinic and diagnosed with BPPV, and given home exercises and Meclizine. Prior Treatments and Tests Prior history of PT, home treatment for BPPV Treatment Goals Patient/Caregiver Goals Pt wants to get back to walking increased distances without tiring out, return to dancing, and improve her ability to get her right leg in to and out of bed. Prior Functional Status Baseline Function- ADL's Modified Independent Baseline Function- Mobility Modified Independent Baseline Function- Gait Typically uses SPC, wears right AFO Current Functional Impairments (Reported) Functional Limitations- Mobility/Gait Decreased gait tolerance, becomes off-balance with quick head movements. Functional Limitations- Recreation/ Unable to go out dancing Hobbies PT-OP-C Subjective Start: 04/15/18 13:19 Freq: Status: Active Protocol: Document 04/24/18 09:46 SAK (Rec: 04/24/18 10:31 SAK [id number]) OP-PT Subjective Patient Comments Patient Comments Having difficulty with ankle ex, not sure if do PT-OP-D Balance Start: 04/15/18 13:19 Freq: Status: Active Protocol: Document 04/15/18 12:10 DCW (Rec: 04/15/18 13:42 DCW [id number]) OP-PT Balance Assessment Sitting Balance Static Sitting Balance Ability Normal Dynamic Sitting Balance Ability Normal Standing Balance Static Standing Balance Ability Good Dynamic Standing Balance Ability Fair Posada Fall Scale Copyright Permission Albino JM, Albino RM, Marisabel SJ. Development of a scale to identify the fall- prone patient. Can J Aging 1989;8;366-7. Halima Posada (2009). Preventing patient falls. (2nd ed). [place]: Siddiqi. PT-OP-E Functional Tests Start: 04/15/18 13:19 Freq: Status: Active Protocol: Document 04/15/18 12:10 DCW (Rec: 04/15/18 13:42 DCW [id number]) Functional Tests Dynamic Gait Index (DGI) Score 13/24 DGI Impairment Rating 40 to <60% Impaired (Score 10- 14) Timed Up and Go (TUG) Score 10.26 Comments Three-trial average TUG Impairment Rating 1 to <20% Impaired (Score 11) PT-OP-J Posture/Palpation/Skin Start: 04/15/18 13:42 Freq: Status: Active Protocol: Document 04/15/18 12:10 DCW (Rec: 04/15/18 13:45 DCW [id number]) Palpation Assessment Location Right lower extremity Palpation Details Noticeable atrophy/muscle wasting of right LE, most notably her right calf PT-OP-M Strength Start: 04/15/18 13:42 Freq: Status: Active Protocol: Document 04/15/18 12:10 DCW (Rec: 04/15/18 13:45 DCW [id number]) Hip Strength Hip Manual Muscle Testing Right Flexion (L2) 3+ Fair+ Abduction 4- Good- Adduction 4 Good Left Flexion (L2) 4+ Good+ Abduction 4- Good- Adduction 4 Good Knee Strength Knee Manual Muscle Testing Right Flexion (S2) 4 Good Extension (L3) 4- Good- Left Flexion (S2) 4+ Good+ Extension (L3) 4+ Good+ Ankle/Foot Strength Ankle and Foot Manual Muscle Testing Right Dorsiflexion (L4) 4- Good- Plantarflexion (S1) 3+ Fair+ Left Dorsiflexion (L4) 4 Good Plantarflexion (S1) 4 Good PT-OP-O Vestibular Start: 04/15/18 13:19 Freq: Status: Active Protocol: Document 04/16/18 11:15 DCW (Rec: 04/16/18 11:56 DCW [id number]) Vestibular Assessment Positional Testing [place]-Hallpike Negative Left Negative Right PT-OP-Q Treatments Start: 04/15/18 13:19 Freq: Status: Active Protocol: Document 04/24/18 09:46 SAK (Rec: 04/24/18 10:31 SAK [id number]) Cardio Equipment Recumbent Bicycle Duration (Minutes) 5 Resistance 2 Seat Position 3 Other Without AFO Gym Equipment Shuttle Recovery Unilateral Squats Resistance 50# Shuttle Recovery Platform Stable Reps/Time x20 - without AFO Bilateral Squats Resistance 87# Shuttle Recovery Platform Stable Reps/Time x20 - without AFO Shuttle Balance 1 Details Red - Wide ARMANDO (EO/EC, head turns), Staggered Stance Therapeutic Exercises Sitting Exercises 4-way Ankle flexion Sitting Exercise Name Ankle PF/DF/Inv/Ev Side bilateral Resistance Lv 2 Equipment Used T-band Comments x20 each Standing Exercises heel/toe raise Reps/Minutes 10 Comments parallel bars Therapeutic Activity Therapeutic Activity sit to stand Reps/Minutes 5x Comments 13 sec Neuro Re-Education Treatment Balance Activities turning Surface firm, level Comments parallel bars tandem stand, SLS Surface firm, level Comments parallel bars PT-OP-T Assessment and Plan Start: 04/15/18 13:19 Freq: Status: Active Protocol: Document 04/24/18 09:46 SAK (Rec: 04/24/18 10:31 [facility] [id number]) Physical Therapy Assessment Goals Four Impairment Positive right [place]-Hallpike Short Term Goal (STG) Bilateral [place]-Hallpike negative STG Duration 05/16/18 Three Impairment LE MMT Dance Coach Goal (LTG) Right LE MMT grossly to 4/5 LTG Duration 06/15/18 Two Impairment DGI Dance Coach Goal (LTG) Pt to score at least 18/23 LTG Duration 06/15/18 One Impairment Activity Participation Dance Coach Goal (LTG) Pt to return to dancing with boyfriend one night a week LTG Duration 06/15/18 Assessment Summary Assessment Patient initially demonstrated bracing of right LE against left for sit to stand, able to correct with cues for decreased compensation. Verbal and manual cues also for right LE alignment and control wilth ex bike, shuttle leg press. Physical Therapy Plan Frequency and Duration Frequency of Treatment 2x/Week Duration of Treatment 10 weeks Plan of Care Start Date 04/15/18 Plan of Care End Date 06/24/18 Therapeutic Interventions Therapeutic Interventions Aquatic Therapy Balance Training Canalithic Repositioning Gait Training Home Exercise Program Manual Therapy Soft Tissue Mobilization Therapeutic Activities Therapeutic Exercises Vestibular Rehabilitation Next Visit Focus/Plan Next Note Type Treatment Note Next Visit Plan Progress balance, gait, strengthening including adding clamshells, challenged gait activities.
--- NOTE | 2018-04-29 16:45 | PT.OTN ---
Current Diagnoses Multiple sclerosis (04/29/18) Physical Therapy Treatment Note PT-OP-A Visit Information Start: 04/15/18 13:19 Freq: Status: Active Protocol: Document 04/29/18 10:33 SAK (Rec: 04/29/18 11:16 SAK [id number]) Out-Patient Physical Therapy Visit Information Visit Information Visit Type Treatment Note Visit Start Time 10:30 Visit Stop Time 11:14 Total Visit Minutes 44 Visit Number 5 Number of ADJUTANT GENERAL Visits 0 Evaluation Information Evaluation Date 04/15/18 PT-OP-B Current Condition Start: 04/15/18 13:19 Freq: Status: Active Protocol: Document 04/15/18 12:10 DCW (Rec: 04/15/18 13:42 DCW [id number]) Current Condition History of Current Condition Onset Date Multi-year history of Multiple Sclerosis Current Complaints Right leg weakness, dizziness, gait difficulty, decreased walking tolerance History of Current Condition Pt is a 67 year old female well known to this clinic returning due to complications secondary to MS, as well as recent complaints of position- dependent vertigo. Pt reports she has been noticing that her right leg has been wasting significantly, and it has impacted her ability to walk, go out dancing, and get in and out of bed. Additionally, she has been experiencing 10-15 second bouts of dizziness when rolling in bed to her right side. Notes that her boyfriend saw my eyes shaking all over the place when I rolled over, so she was taken to the Urgent care clinic and diagnosed with BPPV, and given home exercises and Meclizine. Prior Treatments and Tests Prior history of PT, home treatment for BPPV Treatment Goals Patient/Caregiver Goals Pt wants to get back to walking increased distances without tiring out, return to dancing, and improve her ability to get her right leg in to and out of bed. Prior Functional Status Baseline Function- ADL's Modified Independent Baseline Function- Mobility Modified Independent Baseline Function- Gait Typically uses SPC, wears right AFO Current Functional Impairments (Reported) Functional Limitations- Mobility/Gait Decreased gait tolerance, becomes off-balance with quick head movements. Functional Limitations- Recreation/ Unable to go out dancing Hobbies PT-OP-C Subjective Start: 04/15/18 13:19 Freq: Status: Active Protocol: Document 04/29/18 10:33 SAK (Rec: 04/29/18 11:16 SAK [id number]) OP-PT Subjective Patient Comments Patient Comments Doing a little better with ankle exercises PT-OP-D Balance Start: 04/15/18 13:19 Freq: Status: Active Protocol: Document 04/15/18 12:10 DCW (Rec: 04/15/18 13:42 DCW [id number]) OP-PT Balance Assessment Sitting Balance Static Sitting Balance Ability Normal Dynamic Sitting Balance Ability Normal Standing Balance Static Standing Balance Ability Good Dynamic Standing Balance Ability Fair Posada Fall Scale Copyright Permission Albino JM, Albino RM, Marisabel SJ. Development of a scale to identify the fall- prone patient. Can J Aging 1989;8;366-7. Halima Posada (2009). Preventing patient falls. (2nd ed). [place]: Siddiqi. PT-OP-E Functional Tests Start: 04/15/18 13:19 Freq: Status: Active Protocol: Document 04/15/18 12:10 DCW (Rec: 04/15/18 13:42 DCW [id number]) Functional Tests Dynamic Gait Index (DGI) Score 13/24 DGI Impairment Rating 40 to <60% Impaired (Score 10- 14) Timed Up and Go (TUG) Score 10.26 Comments Three-trial average TUG Impairment Rating 1 to <20% Impaired (Score 11) PT-OP-J Posture/Palpation/Skin Start: 04/15/18 13:42 Freq: Status: Active Protocol: Document 04/15/18 12:10 DCW (Rec: 04/15/18 13:45 DCW [id number]) Palpation Assessment Location Right lower extremity Palpation Details Noticeable atrophy/muscle wasting of right LE, most notably her right calf PT-OP-M Strength Start: 04/15/18 13:42 Freq: Status: Active Protocol: Document 04/15/18 12:10 DCW (Rec: 04/15/18 13:45 DCW [id number]) Hip Strength Hip Manual Muscle Testing Right Flexion (L2) 3+ Fair+ Abduction 4- Good- Adduction 4 Good Left Flexion (L2) 4+ Good+ Abduction 4- Good- Adduction 4 Good Knee Strength Knee Manual Muscle Testing Right Flexion (S2) 4 Good Extension (L3) 4- Good- Left Flexion (S2) 4+ Good+ Extension (L3) 4+ Good+ Ankle/Foot Strength Ankle and Foot Manual Muscle Testing Right Dorsiflexion (L4) 4- Good- Plantarflexion (S1) 3+ Fair+ Left Dorsiflexion (L4) 4 Good Plantarflexion (S1) 4 Good PT-OP-O Vestibular Start: 04/15/18 13:19 Freq: Status: Active Protocol: Document 04/16/18 11:15 DCW (Rec: 04/16/18 11:56 DCW [id number]) Vestibular Assessment Positional Testing [place]-Hallpike Negative Left Negative Right PT-OP-Q Treatments Start: 04/15/18 13:19 Freq: Status: Active Protocol: Document 04/29/18 10:33 SAK (Rec: 04/29/18 11:16 SAK [id number]) Cardio Equipment Recumbent Elliptical (Biodex) Duration (Minutes) 6 Resistance 1 Seat Position 8 Other without AFO Gym Equipment Shuttle Recovery Bilateral Heel Raises Resistance 75# Shuttle Recovery Platform Stable Reps/Time without AFO Unilateral Squats Resistance 50# Shuttle Recovery Platform Stable Reps/Time x20 - without AFO Bilateral Squats Resistance 87# Shuttle Recovery Platform Stable Reps/Time x20 - without AFO Shuttle Balance balance with perturbations Details chains yellow throw against rebounder Details chains yellow Comments large ball, 2-handed throw/ catch 1 Details Red - Wide ARMANDO (EO/EC, head turns), Staggered Stance Therapeutic Exercises Standing Exercises sidestepping Reps/Minutes 2 min PT-OP-T Assessment and Plan Start: 04/15/18 13:19 Freq: Status: Active Protocol: Document 04/29/18 10:33 JENNIFER (Rec: 04/29/18 16:43 [facility] [id number]) Physical Therapy Assessment Impairments Impairments Activity Tolerance Balance Gait Strength Tone Vestibular Goals Four Impairment Positive right [place]-Hallpike Short Term Goal (STG) Bilateral [place]-Hallpike negative STG Duration 05/16/18 Three Impairment LE MMT Power Engineer Goal (LTG) Right LE MMT grossly to 4/5 LTG Duration 06/15/18 Two Impairment DGI Power Engineer Goal (LTG) Pt to score at least 18/23 LTG Duration 06/15/18 One Impairment Activity Participation Power Engineer Goal (LTG) Pt to return to dancing with boyfriend one night a week LTG Duration 06/15/18 Assessment Summary Assessment Patient needed cues to repeat sit to stand from waiting room chair due to compensation as previously. With cues able to do sit to stand without bracing right LE against left. LOB x 1 backward initially with sidestepping requiring mod assist Physical Therapy Plan Frequency and Duration Frequency of Treatment 2x/Week Duration of Treatment 10 weeks Plan of Care Start Date 04/15/18 Plan of Care End Date 06/24/18 Therapeutic Interventions Therapeutic Interventions Aquatic Therapy Balance Training Canalithic Repositioning Gait Training Home Exercise Program Manual Therapy Soft Tissue Mobilization Therapeutic Activities Therapeutic Exercises Vestibular Rehabilitation Next Visit Focus/Plan Next Note Type Treatment Note Next Visit Plan add honey
--- NOTE | 2018-05-01 10:29 | PT.OTN ---
Current Diagnoses Multiple sclerosis (05/01/18) Physical Therapy Treatment Note PT-OP-A Visit Information Start: 04/15/18 13:19 Freq: Status: Active Protocol: Document 05/01/18 09:49 SAK (Rec: 05/01/18 10:28 SAK [id number]) Out-Patient Physical Therapy Visit Information Visit Information Visit Type Treatment Note Visit Start Time 09:40 Visit Stop Time 10:25 Total Visit Minutes 45 Visit Number 6 Number of NUCLEAR PLANT INSTRUMENT TECHNICIAN Visits 0 Evaluation Information Evaluation Date 04/15/18 PT-OP-B Current Condition Start: 04/15/18 13:19 Freq: Status: Active Protocol: Document 04/15/18 12:10 DCW (Rec: 04/15/18 13:42 DCW [id number]) Current Condition History of Current Condition Onset Date Multi-year history of Multiple Sclerosis Current Complaints Right leg weakness, dizziness, gait difficulty, decreased walking tolerance History of Current Condition Pt is a 67 year old female well known to this clinic returning due to complications secondary to MS, as well as recent complaints of position- dependent vertigo. Pt reports she has been noticing that her right leg has been wasting significantly, and it has impacted her ability to walk, go out dancing, and get in and out of bed. Additionally, she has been experiencing 10-15 second bouts of dizziness when rolling in bed to her right side. Notes that her boyfriend saw my eyes shaking all over the place when I rolled over, so she was taken to the Urgent care clinic and diagnosed with BPPV, and given home exercises and Meclizine. Prior Treatments and Tests Prior history of PT, home treatment for BPPV Treatment Goals Patient/Caregiver Goals Pt wants to get back to walking increased distances without tiring out, return to dancing, and improve her ability to get her right leg in to and out of bed. Prior Functional Status Baseline Function- ADL's Modified Independent Baseline Function- Mobility Modified Independent Baseline Function- Gait Typically uses SPC, wears right AFO Current Functional Impairments (Reported) Functional Limitations- Mobility/Gait Decreased gait tolerance, becomes off-balance with quick head movements. Functional Limitations- Recreation/ Unable to go out dancing Hobbies PT-OP-C Subjective Start: 04/15/18 13:19 Freq: Status: Active Protocol: Document 05/01/18 09:49 SAK (Rec: 05/01/18 10:28 SAK [id number]) OP-PT Subjective Patient Comments Patient Comments Some pins and needles feelings in her LE's yesterday. Balance still off but not as bad. Reports difficulty lifting her right leg up with gait. PT-OP-D Balance Start: 04/15/18 13:19 Freq: Status: Active Protocol: Document 04/15/18 12:10 DCW (Rec: 04/15/18 13:42 DCW [id number]) OP-PT Balance Assessment Sitting Balance Static Sitting Balance Ability Normal Dynamic Sitting Balance Ability Normal Standing Balance Static Standing Balance Ability Good Dynamic Standing Balance Ability Fair Posada Fall Scale Copyright Permission Albino VINSON, Albino RM, Marisabel SJ. Development of a scale to identify the fall- prone patient. Can J Aging 1989;8;366-7. Halima Posada (2009). Preventing patient falls. (2nd ed). [place]: Siddiqi. PT-OP-E Functional Tests Start: 04/15/18 13:19 Freq: Status: Active Protocol: Document 04/15/18 12:10 DCW (Rec: 04/15/18 13:42 DCW [id number]) Functional Tests Dynamic Gait Index (DGI) Score 13/24 DGI Impairment Rating 40 to <60% Impaired (Score 10- 14) Timed Up and Go (TUG) Score 10.26 Comments Three-trial average TUG Impairment Rating 1 to <20% Impaired (Score 11) PT-OP-J Posture/Palpation/Skin Start: 04/15/18 13:42 Freq: Status: Active Protocol: Document 04/15/18 12:10 DCW (Rec: 04/15/18 13:45 DCW [id number]) Palpation Assessment Location Right lower extremity Palpation Details Noticeable atrophy/muscle wasting of right LE, most notably her right calf PT-OP-M Strength Start: 04/15/18 13:42 Freq: Status: Active Protocol: Document 04/15/18 12:10 DCW (Rec: 04/15/18 13:45 DCW [id number]) Hip Strength Hip Manual Muscle Testing Right Flexion (L2) 3+ Fair+ Abduction 4- Good- Adduction 4 Good Left Flexion (L2) 4+ Good+ Abduction 4- Good- Adduction 4 Good Knee Strength Knee Manual Muscle Testing Right Flexion (S2) 4 Good Extension (L3) 4- Good- Left Flexion (S2) 4+ Good+ Extension (L3) 4+ Good+ Ankle/Foot Strength Ankle and Foot Manual Muscle Testing Right Dorsiflexion (L4) 4- Good- Plantarflexion (S1) 3+ Fair+ Left Dorsiflexion (L4) 4 Good Plantarflexion (S1) 4 Good PT-OP-O Vestibular Start: 04/15/18 13:19 Freq: Status: Active Protocol: Document 04/16/18 11:15 DCW (Rec: 04/16/18 11:56 DCW [id number]) Vestibular Assessment Positional Testing Seym[place]-Hallpike Negative Left Negative Right PT-OP-Q Treatments Start: 04/15/18 13:19 Freq: Status: Active Protocol: Document 05/01/18 09:49 [facility] (Rec: 05/01/18 10:28 [facility] [id number]) Cardio Equipment Recumbent Elliptical ([employer]) Duration (Minutes) 10 Resistance 1 Seat Position 8 Other without AFO Gym Equipment Shuttle Recovery Bilateral Heel Raises Resistance 75# Shuttle Recovery Platform Stable Reps/Time without AFO Unilateral Squats Resistance 50 Shuttle Recovery Platform Unstable Reps/Time x20 - without AFO Bilateral Squats Resistance 87# Shuttle Recovery Platform Unstable Reps/Time x20 - without AFO Therapeutic Exercises Sitting Exercises 4-way Ankle flexion Sitting Exercise Name Ankle PF/DF/Inv/Ev Side bilateral Resistance Lv 1 Equipment Used T-band Comments x20 each Neuro Re-Education Treatment Balance Activities hurdles Comments parallel bars: 2 steps in between, 1 step in between, sideways tandem stand, SLS Surface firm, level Comments parallel bars PT-OP-T Assessment and Plan Start: 04/15/18 13:19 Freq: Status: Active Protocol: Document 05/01/18 09:49 [facility] (Rec: 05/01/18 10:28 [facility] [id number]) Physical Therapy Assessment Impairments Impairments Activity Tolerance Balance Gait Strength Tone Vestibular Goals Four Impairment Positive right Seymour-Hallpike Short Term Goal (STG) Bilateral Seymour-Hallpike negative STG Duration 05/16/18 Three Impairment LE MMT Semiconductor Wafers Marker Goal (LTG) Right LE MMT grossly to 4/5 LTG Duration 06/15/18 Two Impairment DGI Shelter Goal (LTG) Pt to score at least 18/23 LTG Duration 06/15/18 One Impairment Activity Participation Semiconductor Wafers Marker Goal (LTG) Pt to return to dancing with boyfriend one night a week LTG Duration 06/15/18 Assessment Summary Assessment Improving awareness of her compensatory patterns, improved foot clearance with hurdles with practice; patient willing to challenge her balance. Highly motivated, compliant to HEP. Physical Therapy Plan Frequency and Duration Frequency of Treatment 2x/Week Duration of Treatment 10 weeks Plan of Care Start Date 04/15/18 Plan of Care End Date 06/24/18 Therapeutic Interventions Therapeutic Interventions Aquatic Therapy Balance Training Canalithic Repositioning Gait Training Home Exercise Program Manual Therapy Soft Tissue Mobilization Therapeutic Activities Therapeutic Exercises Vestibular Rehabilitation Next Visit Focus/Plan Next Note Type Treatment Note Next Visit Plan shawn méndez
--- NOTE | 2018-05-06 11:12 | PT.OTN ---
Current Diagnoses Multiple sclerosis (05/06/18) Physical Therapy Treatment Note PT-OP-A Visit Information Start: 04/15/18 13:19 Freq: Status: Active Protocol: Document 05/06/18 10:30 DCW (Rec: 05/06/18 11:12 DCW [id number]) Out-Patient Physical Therapy Visit Information Visit Information Visit Type Treatment Note Visit Start Time 09:40 Visit Stop Time 10:25 Total Visit Minutes 45 Visit Number 6 Number of OENOLOGIST Visits 0 Evaluation Information Evaluation Date 04/15/18 PT-OP-B Current Condition Start: 04/15/18 13:19 Freq: Status: Active Protocol: Document 04/15/18 12:10 DCW (Rec: 04/15/18 13:42 DCW [id number]) Current Condition History of Current Condition Onset Date Multi-year history of Multiple Sclerosis Current Complaints Right leg weakness, dizziness, gait difficulty, decreased walking tolerance History of Current Condition Pt is a 67 year old female well known to this clinic returning due to complications secondary to MS, as well as recent complaints of position- dependent vertigo. Pt reports she has been noticing that her right leg has been wasting significantly, and it has impacted her ability to walk, go out dancing, and get in and out of bed. Additionally, she has been experiencing 10-15 second bouts of dizziness when rolling in bed to her right side. Notes that her boyfriend saw my eyes shaking all over the place when I rolled over, so she was taken to the Urgent care clinic and diagnosed with BPPV, and given home exercises and Meclizine. Prior Treatments and Tests Prior history of PT, home treatment for BPPV Treatment Goals Patient/Caregiver Goals Pt wants to get back to walking increased distances without tiring out, return to dancing, and improve her ability to get her right leg in to and out of bed. Prior Functional Status Baseline Function- ADL's Modified Independent Baseline Function- Mobility Modified Independent Baseline Function- Gait Typically uses SPC, wears right AFO Current Functional Impairments (Reported) Functional Limitations- Mobility/Gait Decreased gait tolerance, becomes off-balance with quick head movements. Functional Limitations- Recreation/ Unable to go out dancing Hobbies PT-OP-C Subjective Start: 04/15/18 13:19 Freq: Status: Active Protocol: Document 05/06/18 10:30 DCW (Rec: 05/06/18 11:12 DCW [id number]) OP-PT Subjective Patient Comments Patient Comments Pt reports she has been going to her exercise class regularly. PT-OP-D Balance Start: 04/15/18 13:19 Freq: Status: Active Protocol: Document 04/15/18 12:10 DCW (Rec: 04/15/18 13:42 DCW [id number]) OP-PT Balance Assessment Sitting Balance Static Sitting Balance Ability Normal Dynamic Sitting Balance Ability Normal Standing Balance Static Standing Balance Ability Good Dynamic Standing Balance Ability Fair [place]da Fall Scale Copyright Permission Albino JM, Albino RM, Marisabel SJ. Development of a scale to identify the fall- prone patient. Can J Aging 1989;8;366-7. Halima Posada (2009). Preventing patient falls. (2nd ed). [place]: Siddiqi. PT-OP-E Functional Tests Start: 04/15/18 13:19 Freq: Status: Active Protocol: Document 04/15/18 12:10 DCW (Rec: 04/15/18 13:42 DCW [id number]) Functional Tests Dynamic Gait Index (DGI) Score 13/24 DGI Impairment Rating 40 to <60% Impaired (Score 10- 14) Timed Up and Go (TUG) Score 10.26 Comments Three-trial average TUG Impairment Rating 1 to <20% Impaired (Score 11) PT-OP-J Posture/Palpation/Skin Start: 04/15/18 13:42 Freq: Status: Active Protocol: Document 04/15/18 12:10 DCW (Rec: 04/15/18 13:45 DCW [id number]) Palpation Assessment Location Right lower extremity Palpation Details Noticeable atrophy/muscle wasting of right LE, most notably her right calf PT-OP-M Strength Start: 04/15/18 13:42 Freq: Status: Active Protocol: Document 04/15/18 12:10 DCW (Rec: 04/15/18 13:45 DCW [id number]) Hip Strength Hip Manual Muscle Testing Right Flexion (L2) 3+ Fair+ Abduction 4- Good- Adduction 4 Good Left Flexion (L2) 4+ Good+ Abduction 4- Good- Adduction 4 Good Knee Strength Knee Manual Muscle Testing Right Flexion (S2) 4 Good Extension (L3) 4- Good- Left Flexion (S2) 4+ Good+ Extension (L3) 4+ Good+ Ankle/Foot Strength Ankle and Foot Manual Muscle Testing Right Dorsiflexion (L4) 4- Good- Plantarflexion (S1) 3+ Fair+ Left Dorsiflexion (L4) 4 Good Plantarflexion (S1) 4 Good PT-OP-O Vestibular Start: 04/15/18 13:19 Freq: Status: Active Protocol: Document 04/16/18 11:15 DCW (Rec: 04/16/18 11:56 DCW [id number]) Vestibular Assessment Positional Testing [place]-Hallpike Negative Left Negative Right PT-OP-Q Treatments Start: 04/15/18 13:19 Freq: Status: Active Protocol: Document 05/06/18 10:30 DCW (Rec: 05/06/18 11:12 DCW [id number]) Cardio Equipment Recumbent Bicycle Duration (Minutes) 5 Resistance 2 Seat Position 3 Other Without AFO Gym Equipment Shuttle Recovery Bilateral Heel Raises Resistance 87# Shuttle Recovery Platform Stable Reps/Time without AFO Unilateral Squats Resistance 62# Shuttle Recovery Platform Unstable Reps/Time x20 - without AFO Bilateral Squats Resistance 100# Shuttle Recovery Platform Unstable Reps/Time x20 - without AFO Shuttle Balance throw against rebounder Details chains yellow Comments large ball, 2-handed throw/ catch 1 Details Red - Wide ARMANDO, DF/PF Therapeutic Exercises Standing Exercises Plantar flexion Standing Exercise Name PF Side bilateral Equipment Used CATHLEEN Neuro Re-Education Treatment Balance Activities hurdles Details Hurdles/foam Comments parallel bars: 1 step in between, sideways tandem stand, SLS Surface firm, level Comments parallel bars PT-OP-T Assessment and Plan Start: 04/15/18 13:19 Freq: Status: Active Protocol: Document 05/06/18 10:30 DCW (Rec: 05/06/18 11:12 DCW [id number]) Physical Therapy Assessment Impairments Impairments Activity Tolerance Balance Gait Strength Tone Vestibular Goals Four Impairment Positive right Magaly-Hallpike Short Term Goal (STG) Bilateral Magaly-Hallpike negative STG Duration 05/16/18 Three Impairment LE MMT Child Development Assistant Goal (LTG) Right LE MMT grossly to 4/5 LTG Duration 06/15/18 Two Impairment DGI Nursing Home Goal (LTG) Pt to score at least 18/23 LTG Duration 06/15/18 One Impairment Activity Participation Child Development Assistant Goal (LTG) Pt to return to dancing with boyfriend one night a week LTG Duration 06/15/18 Assessment Summary Assessment Pt improving with some of her foot control, however came today with no AFO, and is still very noticeably less stable walking without it. Physical Therapy Plan Frequency and Duration Frequency of Treatment 2x/Week Duration of Treatment 10 weeks Plan of Care Start Date 04/15/18 Plan of Care End Date 06/24/18 Therapeutic Interventions Therapeutic Interventions Aquatic Therapy Balance Training Canalithic Repositioning Gait Training Home Exercise Program Manual Therapy Soft Tissue Mobilization Therapeutic Activities Therapeutic Exercises Vestibular Rehabilitation Next Visit Focus/Plan Next Note Type Treatment Note Next Visit Plan add honey
--- NOTE | 2018-05-08 11:15 | PT.OTN ---
Current Diagnoses Multiple sclerosis (05/08/18) Physical Therapy Treatment Note PT-OP-A Visit Information Start: 04/15/18 13:19 Freq: Status: Active Protocol: Document 05/08/18 10:30 DCW (Rec: 05/08/18 11:14 DCW [id number]) Out-Patient Physical Therapy Visit Information Visit Information Visit Type Treatment Note Visit Start Time 10:30 Visit Stop Time 11:15 Total Visit Minutes 45 Visit Number 8 Number of ACTUARIAL ASSOCIATE Visits 0 Evaluation Information Evaluation Date 04/15/18 PT-OP-B Current Condition Start: 04/15/18 13:19 Freq: Status: Active Protocol: Document 04/15/18 12:10 DCW (Rec: 04/15/18 13:42 DCW [id number]) Current Condition History of Current Condition Onset Date Multi-year history of Multiple Sclerosis Current Complaints Right leg weakness, dizziness, gait difficulty, decreased walking tolerance History of Current Condition Pt is a 67 year old female well known to this clinic returning due to complications secondary to MS, as well as recent complaints of position- dependent vertigo. Pt reports she has been noticing that her right leg has been wasting significantly, and it has impacted her ability to walk, go out dancing, and get in and out of bed. Additionally, she has been experiencing 10-15 second bouts of dizziness when rolling in bed to her right side. Notes that her boyfriend saw my eyes shaking all over the place when I rolled over, so she was taken to the Urgent care clinic and diagnosed with BPPV, and given home exercises and Meclizine. Prior Treatments and Tests Prior history of PT, home treatment for BPPV Treatment Goals Patient/Caregiver Goals Pt wants to get back to walking increased distances without tiring out, return to dancing, and improve her ability to get her right leg in to and out of bed. Prior Functional Status Baseline Function- ADL's Modified Independent Baseline Function- Mobility Modified Independent Baseline Function- Gait Typically uses SPC, wears right AFO Current Functional Impairments (Reported) Functional Limitations- Mobility/Gait Decreased gait tolerance, becomes off-balance with quick head movements. Functional Limitations- Recreation/ Unable to go out dancing Hobbies PT-OP-C Subjective Start: 04/15/18 13:19 Freq: Status: Active Protocol: Document 05/08/18 10:30 DCW (Rec: 05/08/18 11:14 DCW [id number]) OP-PT Subjective Patient Comments Patient Comments PT reports she is feeling good today, despite the rain. PT-OP-D Balance Start: 04/15/18 13:19 Freq: Status: Active Protocol: Document 04/15/18 12:10 DCW (Rec: 04/15/18 13:42 DCW [id number]) OP-PT Balance Assessment Sitting Balance Static Sitting Balance Ability Normal Dynamic Sitting Balance Ability Normal Standing Balance Static Standing Balance Ability Good Dynamic Standing Balance Ability Fair Posada Fall Scale Copyright Permission Albino JM, Albino RM, Marisabel SJ. Development of a scale to identify the fall- prone patient. Can J Aging 1989;8;366-7. Halima Posada (2009). Preventing patient falls. (2nd ed). [place]: Siddiqi. PT-OP-E Functional Tests Start: 04/15/18 13:19 Freq: Status: Active Protocol: Document 04/15/18 12:10 DCW (Rec: 04/15/18 13:42 DCW [id number]) Functional Tests Dynamic Gait Index (DGI) Score 13/24 DGI Impairment Rating 40 to <60% Impaired (Score 10- 14) Timed Up and Go (TUG) Score 10.26 Comments Three-trial average TUG Impairment Rating 1 to <20% Impaired (Score 11) PT-OP-J Posture/Palpation/Skin Start: 04/15/18 13:42 Freq: Status: Active Protocol: Document 04/15/18 12:10 DCW (Rec: 04/15/18 13:45 DCW [id number]) Palpation Assessment Location Right lower extremity Palpation Details Noticeable atrophy/muscle wasting of right LE, most notably her right calf PT-OP-M Strength Start: 04/15/18 13:42 Freq: Status: Active Protocol: Document 04/15/18 12:10 DCW (Rec: 04/15/18 13:45 DCW [id number]) Hip Strength Hip Manual Muscle Testing Right Flexion (L2) 3+ Fair+ Abduction 4- Good- Adduction 4 Good Left Flexion (L2) 4+ Good+ Abduction 4- Good- Adduction 4 Good Knee Strength Knee Manual Muscle Testing Right Flexion (S2) 4 Good Extension (L3) 4- Good- Left Flexion (S2) 4+ Good+ Extension (L3) 4+ Good+ Ankle/Foot Strength Ankle and Foot Manual Muscle Testing Right Dorsiflexion (L4) 4- Good- Plantarflexion (S1) 3+ Fair+ Left Dorsiflexion (L4) 4 Good Plantarflexion (S1) 4 Good PT-OP-O Vestibular Start: 04/15/18 13:19 Freq: Status: Active Protocol: Document 04/16/18 11:15 DCW (Rec: 04/16/18 11:56 DCW [id number]) Vestibular Assessment Positional Testing [place]-Hallpike Negative Left Negative Right PT-OP-Q Treatments Start: 04/15/18 13:19 Freq: Status: Active Protocol: Document 05/08/18 10:30 DCW (Rec: 05/08/18 11:14 DCW [id number]) Cardio Equipment Recumbent Bicycle Duration (Minutes) 5 Resistance 2 Seat Position 3 Other Without AFO Gym Equipment Shuttle Recovery Unilateral Heel Raises Resistance 50# Shuttle Recovery Platform Stable Reps/Time x20 - without AFO Bilateral Heel Raises Resistance 87# Shuttle Recovery Platform Stable Reps/Time without AFO Unilateral Squats Resistance 62# Shuttle Recovery Platform Unstable Reps/Time x20 - without AFO Bilateral Squats Resistance 100# Shuttle Recovery Platform Unstable Reps/Time x20 - without AFO Shuttle Balance throw against rebounder Details chains yellow Comments large ball, 2-handed throw/ catch 1 Details Red - Wide ARMANDO (EO/EC), DF/PF Therapeutic Exercises Standing Exercises Plantar flexion Standing Exercise Name PF Side bilateral Equipment Used CATHLEEN Neuro Re-Education Treatment Balance Activities Double Leg Stance Details Semi-Tandem, Tandem Surface Goldberg Foam PT-OP-T Assessment and Plan Start: 04/15/18 13:19 Freq: Status: Active Protocol: Document 05/08/18 10:30 DCW (Rec: 05/08/18 11:14 DCW [id number]) Physical Therapy Assessment Impairments Impairments Activity Tolerance Balance Gait Strength Tone Vestibular Goals Four Impairment Positive right Magaly-Hallpike Short Term Goal (STG) Bilateral [place]-Hallpike negative STG Duration 05/16/18 Three Impairment LE MMT Kitchen Stewardess Goal (LTG) Right LE MMT grossly to 4/5 LTG Duration 06/15/18 Two Impairment DGI Kitchen Stewardess Goal (LTG) Pt to score at least 18/23 LTG Duration 06/15/18 One Impairment Activity Participation Kitchen Stewardess Goal (LTG) Pt to return to dancing with boyfriend one night a week LTG Duration 06/15/18 Assessment Summary Assessment Pt worked hard today, able to perform more activity with increased focus on her right ankle PF/DF Physical Therapy Plan Frequency and Duration Frequency of Treatment 2x/Week Duration of Treatment 10 weeks Plan of Care Start Date 04/15/18 Plan of Care End Date 06/24/18 Therapeutic Interventions Therapeutic Interventions Aquatic Therapy Balance Training Canalithic Repositioning Gait Training Home Exercise Program Manual Therapy Soft Tissue Mobilization Therapeutic Activities Therapeutic Exercises Vestibular Rehabilitation Next Visit Focus/Plan Next Note Type Treatment Note Next Visit Plan Continue current POC
--- NOTE | 2018-05-13 11:15 | PT.OTN ---
Current Diagnoses Multiple sclerosis (05/13/18) Physical Therapy Treatment Note PT-OP-A Visit Information Start: 04/15/18 13:19 Freq: Status: Active Protocol: Document 05/13/18 10:30 DCW (Rec: 05/13/18 11:15 DCW [id number]) Out-Patient Physical Therapy Visit Information Visit Information Visit Type Treatment Note Visit Start Time 10:30 Visit Stop Time 11:15 Total Visit Minutes 45 Visit Number 9 Number of FILLER FEEDER Visits 0 Evaluation Information Evaluation Date 04/15/18 PT-OP-B Current Condition Start: 04/15/18 13:19 Freq: Status: Active Protocol: Document 04/15/18 12:10 DCW (Rec: 04/15/18 13:42 DCW [id number]) Current Condition History of Current Condition Onset Date Multi-year history of Multiple Sclerosis Current Complaints Right leg weakness, dizziness, gait difficulty, decreased walking tolerance History of Current Condition Pt is a 67 year old female well known to this clinic returning due to complications secondary to MS, as well as recent complaints of position- dependent vertigo. Pt reports she has been noticing that her right leg has been wasting significantly, and it has impacted her ability to walk, go out dancing, and get in and out of bed. Additionally, she has been experiencing 10-15 second bouts of dizziness when rolling in bed to her right side. Notes that her boyfriend saw my eyes shaking all over the place when I rolled over, so she was taken to the Urgent care clinic and diagnosed with BPPV, and given home exercises and Meclizine. Prior Treatments and Tests Prior history of PT, home treatment for BPPV Treatment Goals Patient/Caregiver Goals Pt wants to get back to walking increased distances without tiring out, return to dancing, and improve her ability to get her right leg in to and out of bed. Prior Functional Status Baseline Function- ADL's Modified Independent Baseline Function- Mobility Modified Independent Baseline Function- Gait Typically uses SPC, wears right AFO Current Functional Impairments (Reported) Functional Limitations- Mobility/Gait Decreased gait tolerance, becomes off-balance with quick head movements. Functional Limitations- Recreation/ Unable to go out dancing Hobbies PT-OP-C Subjective Start: 04/15/18 13:19 Freq: Status: Active Protocol: Document 05/13/18 10:30 DCW (Rec: 05/13/18 11:15 DCW [id number]) OP-PT Subjective Patient Comments Patient Comments Pt had a good weekend, reports that she got to go dancing on Saturday night. PT-OP-D Balance Start: 04/15/18 13:19 Freq: Status: Active Protocol: Document 04/15/18 12:10 DCW (Rec: 04/15/18 13:42 DCW [id number]) OP-PT Balance Assessment Sitting Balance Static Sitting Balance Ability Normal Dynamic Sitting Balance Ability Normal Standing Balance Static Standing Balance Ability Good Dynamic Standing Balance Ability Fair Posada Fall Scale Copyright Permission Albino VINSON, Albion RM, Marisabel SJ. Development of a scale to identify the fall- prone patient. Can J Aging 1989;8;366-7. Halima Posada (2009). Preventing patient falls. (2nd ed). [place]: Siddiqi. PT-OP-E Functional Tests Start: 04/15/18 13:19 Freq: Status: Active Protocol: Document 04/15/18 12:10 DCW (Rec: 04/15/18 13:42 DCW [id number]) Functional Tests Dynamic Gait Index (DGI) Score 13/24 DGI Impairment Rating 40 to <60% Impaired (Score 10- 14) Timed Up and Go (TUG) Score 10.26 Comments Three-trial average TUG Impairment Rating 1 to <20% Impaired (Score 11) PT-OP-J Posture/Palpation/Skin Start: 04/15/18 13:42 Freq: Status: Active Protocol: Document 04/15/18 12:10 DCW (Rec: 04/15/18 13:45 DCW [id number]) Palpation Assessment Location Right lower extremity Palpation Details Noticeable atrophy/muscle wasting of right LE, most notably her right calf PT-OP-M Strength Start: 04/15/18 13:42 Freq: Status: Active Protocol: Document 04/15/18 12:10 DCW (Rec: 04/15/18 13:45 DCW [id number]) Hip Strength Hip Manual Muscle Testing Right Flexion (L2) 3+ Fair+ Abduction 4- Good- Adduction 4 Good Left Flexion (L2) 4+ Good+ Abduction 4- Good- Adduction 4 Good Knee Strength Knee Manual Muscle Testing Right Flexion (S2) 4 Good Extension (L3) 4- Good- Left Flexion (S2) 4+ Good+ Extension (L3) 4+ Good+ Ankle/Foot Strength Ankle and Foot Manual Muscle Testing Right Dorsiflexion (L4) 4- Good- Plantarflexion (S1) 3+ Fair+ Left Dorsiflexion (L4) 4 Good Plantarflexion (S1) 4 Good PT-OP-O Vestibular Start: 04/15/18 13:19 Freq: Status: Active Protocol: Document 04/16/18 11:15 DCW (Rec: 04/16/18 11:56 DCW [id number]) Vestibular Assessment Positional Testing [place]-Hallpike Negative Left Negative Right PT-OP-Q Treatments Start: 04/15/18 13:19 Freq: Status: Active Protocol: Document 05/13/18 10:30 DCW (Rec: 05/13/18 11:15 DCW [id number]) Cardio Equipment Recumbent Bicycle Duration (Minutes) 6 Resistance 2 Seat Position 3 Other Without AFO Gym Equipment Shuttle Recovery Unilateral Heel Raises Resistance 50# Shuttle Recovery Platform Stable Reps/Time x20 - without AFO Unilateral Squats Resistance 62# Shuttle Recovery Platform Unstable Reps/Time x20 - without AFO Bilateral Squats Resistance 100# Shuttle Recovery Platform Unstable Reps/Time x20 - without AFO Shuttle Balance throw against rebounder Details chains yellow Comments large ball, 2-handed throw/ catch 1 Details Red - Wide ARMANDO (EO/EC), DF/PF Neuro Re-Education Treatment Balance Activities Step up, over, retro Equipment 6 step Double Leg Stance Details Semi-Tandem, Tandem Surface Goldberg Foam tandem stand, SLS Surface firm, level Comments parallel bars PT-OP-T Assessment and Plan Start: 04/15/18 13:19 Freq: Status: Active Protocol: Document 05/13/18 10:30 DCW (Rec: 05/13/18 11:15 DCW [id number]) Physical Therapy Assessment Impairments Impairments Activity Tolerance Balance Gait Strength Tone Vestibular Goals Four Impairment Positive right [place]-Hallpike Short Term Goal (STG) Bilateral [place]-Hallpike negative STG Duration 05/16/18 Three Impairment LE MMT Correction Goal (LTG) Right LE MMT grossly to 4/5 LTG Duration 06/15/18 Two Impairment DGI Communicable Disease Specialist Goal (LTG) Pt to score at least 18/23 LTG Duration 06/15/18 One Impairment Activity Participation Correction Goal (LTG) Pt to return to dancing with boyfriend one night a week LTG Duration 06/15/18 Assessment Summary Assessment Pt did very well today, but was noticeably having a difficult time, multiple times speaking about how she just wish that I could get used to the fact that I'm not going to get better. Physical Therapy Plan Frequency and Duration Frequency of Treatment 2x/Week Duration of Treatment 10 weeks Plan of Care Start Date 04/15/18 Plan of Care End Date 06/24/18 Therapeutic Interventions Therapeutic Interventions Aquatic Therapy Balance Training Canalithic Repositioning Gait Training Home Exercise Program Manual Therapy Soft Tissue Mobilization Therapeutic Activities Therapeutic Exercises Vestibular Rehabilitation Next Visit Focus/Plan Next Note Type Treatment Note Next Visit Plan Continue current POC
--- NOTE | 2018-05-15 11:14 | PT.OTN ---
Current Diagnoses Multiple sclerosis (05/15/18) Physical Therapy Treatment Note PT-OP-A Visit Information Start: 04/15/18 13:19 Freq: Status: Active Protocol: Document 05/15/18 10:30 DCW (Rec: 05/15/18 11:12 DCW [id number]) Out-Patient Physical Therapy Visit Information Visit Information Visit Type Progress Note Visit Note 10th visit G-codes Visit Start Time 10:30 Visit Stop Time 11:15 Total Visit Minutes 45 Visit Number 10 Number of PIGMENT GRINDER Visits 0 Evaluation Information Evaluation Date 04/15/18 PT-OP-B Current Condition Start: 04/15/18 13:19 Freq: Status: Active Protocol: Document 04/15/18 12:10 DCW (Rec: 04/15/18 13:42 DCW [id number]) Current Condition History of Current Condition Onset Date Multi-year history of Multiple Sclerosis Current Complaints Right leg weakness, dizziness, gait difficulty, decreased walking tolerance History of Current Condition Pt is a 67 year old female well known to this clinic returning due to complications secondary to MS, as well as recent complaints of position- dependent vertigo. Pt reports she has been noticing that her right leg has been wasting significantly, and it has impacted her ability to walk, go out dancing, and get in and out of bed. Additionally, she has been experiencing 10-15 second bouts of dizziness when rolling in bed to her right side. Notes that her boyfriend saw my eyes shaking all over the place when I rolled over, so she was taken to the Urgent care clinic and diagnosed with BPPV, and given home exercises and Meclizine. Prior Treatments and Tests Prior history of PT, home treatment for BPPV Treatment Goals Patient/Caregiver Goals Pt wants to get back to walking increased distances without tiring out, return to dancing, and improve her ability to get her right leg in to and out of bed. Prior Functional Status Baseline Function- ADL's Modified Independent Baseline Function- Mobility Modified Independent Baseline Function- Gait Typically uses SPC, wears right AFO Current Functional Impairments (Reported) Functional Limitations- Mobility/Gait Decreased gait tolerance, becomes off-balance with quick head movements. Functional Limitations- Recreation/ Unable to go out dancing Hobbies PT-OP-C Subjective Start: 04/15/18 13:19 Freq: Status: Active Protocol: Document 05/15/18 10:30 DCW (Rec: 05/15/18 11:12 DCW [id number]) OP-PT Subjective Patient Comments Patient Comments Pt reports she feels fantastic today. PT-OP-D Balance Start: 04/15/18 13:19 Freq: Status: Active Protocol: Document 04/15/18 12:10 DCW (Rec: 04/15/18 13:42 DCW [id number]) OP-PT Balance Assessment Sitting Balance Static Sitting Balance Ability Normal Dynamic Sitting Balance Ability Normal Standing Balance Static Standing Balance Ability Good Dynamic Standing Balance Ability Fair Posada Fall Scale Copyright Permission Albino VINSON, Albino RM, Marisabel SJ. Development of a scale to identify the fall- prone patient. Can J Aging 1989;8;366-7. Halima Posada (2009). Preventing patient falls. (2nd ed). [place]: Siddiqi. PT-OP-E Functional Tests Start: 04/15/18 13:19 Freq: Status: Active Protocol: Document 04/15/18 12:10 DCW (Rec: 04/15/18 13:42 DCW [id number]) Functional Tests Dynamic Gait Index (DGI) Score 13/24 DGI Impairment Rating 40 to <60% Impaired (Score 10- 14) Timed Up and Go (TUG) Score 10.26 Comments Three-trial average TUG Impairment Rating 1 to <20% Impaired (Score 11) PT-OP-J Posture/Palpation/Skin Start: 04/15/18 13:42 Freq: Status: Active Protocol: Document 04/15/18 12:10 DCW (Rec: 04/15/18 13:45 DCW [id number]) Palpation Assessment Location Right lower extremity Palpation Details Noticeable atrophy/muscle wasting of right LE, most notably her right calf PT-OP-M Strength Start: 04/15/18 13:42 Freq: Status: Active Protocol: Document 04/15/18 12:10 DCW (Rec: 04/15/18 13:45 DCW [id number]) Hip Strength Hip Manual Muscle Testing Right Flexion (L2) 3+ Fair+ Abduction 4- Good- Adduction 4 Good Left Flexion (L2) 4+ Good+ Abduction 4- Good- Adduction 4 Good Knee Strength Knee Manual Muscle Testing Right Flexion (S2) 4 Good Extension (L3) 4- Good- Left Flexion (S2) 4+ Good+ Extension (L3) 4+ Good+ Ankle/Foot Strength Ankle and Foot Manual Muscle Testing Right Dorsiflexion (L4) 4- Good- Plantarflexion (S1) 3+ Fair+ Left Dorsiflexion (L4) 4 Good Plantarflexion (S1) 4 Good PT-OP-O Vestibular Start: 04/15/18 13:19 Freq: Status: Active Protocol: Document 04/16/18 11:15 DCW (Rec: 04/16/18 11:56 DCW [id number]) Vestibular Assessment Positional Testing [place]-Hallpike Negative Left Negative Right PT-OP-Q Treatments Start: 04/15/18 13:19 Freq: Status: Active Protocol: Document 05/15/18 10:30 DCW (Rec: 05/15/18 11:12 DCW [id number]) Cardio Equipment Recumbent Bicycle Duration (Minutes) 6 Resistance 6 Seat Position 3 Other Without AFO Gym Equipment Shuttle Recovery Unilateral Heel Raises Resistance 50# Shuttle Recovery Platform Stable Reps/Time x20 - without AFO Unilateral Squats Resistance 62# Shuttle Recovery Platform Unstable Reps/Time x20 - without AFO Bilateral Squats Resistance 100# Shuttle Recovery Platform Unstable Reps/Time x20 - without AFO Shuttle Balance throw against rebounder Details chains blue Comments large ball, 2-handed throw/ catch 1 Details Red - Wide ARMANDO (EO/EC), Staggered Stance PT-OP-T Assessment and Plan Start: 04/15/18 13:19 Freq: Status: Active Protocol: Document 05/15/18 10:30 DCW (Rec: 05/15/18 11:14 DCW [id number]) Physical Therapy Assessment Impairments Impairments Activity Tolerance Balance Gait Strength Tone Vestibular Goals Four Impairment Positive right [place]-Hallpike Short Term Goal (STG) Bilateral [place]-Hallpike negative STG Duration 05/16/18 Three Impairment LE MMT Correction Goal (LTG) Right LE MMT grossly to 4/5 LTG Duration 06/15/18 Two Impairment DGI Correction Goal (LTG) Pt to score at least 18/23 LTG Duration 06/15/18 One Impairment Activity Participation Supervisor Filling And Packing Goal (LTG) Pt to return to dancing with boyfriend one night a week LTG Duration 06/15/18 Assessment Summary Assessment Pt making slow progress, as expected with MS, however demonstrating improved stability and right LE strength Physical Therapy Plan Frequency and Duration Frequency of Treatment 2x/Week Duration of Treatment 10 weeks Plan of Care Start Date 04/15/18 Plan of Care End Date 06/24/18 Therapeutic Interventions Therapeutic Interventions Aquatic Therapy Balance Training Canalithic Repositioning Gait Training Home Exercise Program Manual Therapy Soft Tissue Mobilization Therapeutic Activities Therapeutic Exercises Vestibular Rehabilitation Next Visit Focus/Plan Next Note Type Treatment Note Next Visit Plan Continue current POC
--- NOTE | 2018-05-20 11:21 | PT.OTN ---
Current Diagnoses Multiple sclerosis (05/20/18) Physical Therapy Treatment Note PT-OP-A Visit Information Start: 04/15/18 13:19 Freq: Status: Active Protocol: Document 05/20/18 10:30 DCW (Rec: 05/20/18 11:21 DCW [id number]) Out-Patient Physical Therapy Visit Information Visit Information Visit Type Treatment Note Visit Start Time 10:30 Visit Stop Time 11:15 Total Visit Minutes 45 Visit Number 11 Number of SHUT OFF WORKER Visits 0 Evaluation Information Evaluation Date 04/15/18 PT-OP-B Current Condition Start: 04/15/18 13:19 Freq: Status: Active Protocol: Document 04/15/18 12:10 DCW (Rec: 04/15/18 13:42 DCW [id number]) Current Condition History of Current Condition Onset Date Multi-year history of Multiple Sclerosis Current Complaints Right leg weakness, dizziness, gait difficulty, decreased walking tolerance History of Current Condition Pt is a 67 year old female well known to this clinic returning due to complications secondary to MS, as well as recent complaints of position- dependent vertigo. Pt reports she has been noticing that her right leg has been wasting significantly, and it has impacted her ability to walk, go out dancing, and get in and out of bed. Additionally, she has been experiencing 10-15 second bouts of dizziness when rolling in bed to her right side. Notes that her boyfriend saw my eyes shaking all over the place when I rolled over, so she was taken to the Urgent care clinic and diagnosed with BPPV, and given home exercises and Meclizine. Prior Treatments and Tests Prior history of PT, home treatment for BPPV Treatment Goals Patient/Caregiver Goals Pt wants to get back to walking increased distances without tiring out, return to dancing, and improve her ability to get her right leg in to and out of bed. Prior Functional Status Baseline Function- ADL's Modified Independent Baseline Function- Mobility Modified Independent Baseline Function- Gait Typically uses SPC, wears right AFO Current Functional Impairments (Reported) Functional Limitations- Mobility/Gait Decreased gait tolerance, becomes off-balance with quick head movements. Functional Limitations- Recreation/ Unable to go out dancing Hobbies PT-OP-C Subjective Start: 04/15/18 13:19 Freq: Status: Active Protocol: Document 05/20/18 10:30 DCW (Rec: 05/20/18 11:21 DCW [id number]) OP-PT Subjective Patient Comments Patient Comments Pt reports that when she goes dancing on Saturday nights, she has been waking up early the following morning with increased right leg pain and fatigue. PT-OP-D Balance Start: 04/15/18 13:19 Freq: Status: Active Protocol: Document 04/15/18 12:10 DCW (Rec: 04/15/18 13:42 DCW [id number]) OP-PT Balance Assessment Sitting Balance Static Sitting Balance Ability Normal Dynamic Sitting Balance Ability Normal Standing Balance Static Standing Balance Ability Good Dynamic Standing Balance Ability Fair Posada Fall Scale Copyright Permission Albino JM, Albino RM, Marisbael SJ. Development of a scale to identify the fall- prone patient. Can J Aging 1989;8;366-7. Halima Posada (2009). Preventing patient falls. (2nd ed). [place]: Siddiqi. PT-OP-E Functional Tests Start: 04/15/18 13:19 Freq: Status: Active Protocol: Document 04/15/18 12:10 DCW (Rec: 04/15/18 13:42 DCW [id number]) Functional Tests Dynamic Gait Index (DGI) Score 13/24 DGI Impairment Rating 40 to <60% Impaired (Score 10- 14) Timed Up and Go (TUG) Score 10.26 Comments Three-trial average TUG Impairment Rating 1 to <20% Impaired (Score 11) PT-OP-J Posture/Palpation/Skin Start: 04/15/18 13:42 Freq: Status: Active Protocol: Document 04/15/18 12:10 DCW (Rec: 04/15/18 13:45 DCW [id number]) Palpation Assessment Location Right lower extremity Palpation Details Noticeable atrophy/muscle wasting of right LE, most notably her right calf PT-OP-M Strength Start: 04/15/18 13:42 Freq: Status: Active Protocol: Document 04/15/18 12:10 DCW (Rec: 04/15/18 13:45 DCW [id number]) Hip Strength Hip Manual Muscle Testing Right Flexion (L2) 3+ Fair+ Abduction 4- Good- Adduction 4 Good Left Flexion (L2) 4+ Good+ Abduction 4- Good- Adduction 4 Good Knee Strength Knee Manual Muscle Testing Right Flexion (S2) 4 Good Extension (L3) 4- Good- Left Flexion (S2) 4+ Good+ Extension (L3) 4+ Good+ Ankle/Foot Strength Ankle and Foot Manual Muscle Testing Right Dorsiflexion (L4) 4- Good- Plantarflexion (S1) 3+ Fair+ Left Dorsiflexion (L4) 4 Good Plantarflexion (S1) 4 Good PT-OP-O Vestibular Start: 04/15/18 13:19 Freq: Status: Active Protocol: Document 04/16/18 11:15 DCW (Rec: 04/16/18 11:56 DCW [id number]) Vestibular Assessment Positional Testing [place]-Hallpike Negative Left Negative Right PT-OP-Q Treatments Start: 04/15/18 13:19 Freq: Status: Active Protocol: Document 05/20/18 10:30 DCW (Rec: 05/20/18 11:21 DCW [id number]) Cardio Equipment Recumbent Bicycle Duration (Minutes) 6 Resistance 6 Seat Position 3 Other Without AFO Gym Equipment Shuttle Recovery Unilateral Heel Raises Resistance 50# Shuttle Recovery Platform Stable Reps/Time x20 - without AFO Unilateral Squats Resistance 62# Shuttle Recovery Platform Unstable Reps/Time x20 - without AFO Bilateral Squats Resistance 100# Shuttle Recovery Platform Unstable Reps/Time x20 - without AFO Shuttle Balance throw against rebounder Details chains blue Comments large ball, 2-handed throw/ catch 1 Details Red - Wide ARMANDO (EO/EC), Staggered Stance Therapeutic Exercises Standing Exercises Hip Abduction Standing Exercise Name Abduction Side bilateral Resistance Yellow Equipment Used T-band Neuro Re-Education Treatment Balance Activities Step up, over, retro Equipment 6 step PT-OP-T Assessment and Plan Start: 04/15/18 13:19 Freq: Status: Active Protocol: Document 05/20/18 10:30 DCW (Rec: 05/20/18 11:21 DCW [id number]) Physical Therapy Assessment Impairments Impairments Activity Tolerance Balance Gait Strength Tone Vestibular Goals Four Impairment Positive right [place]-Hallpike Short Term Goal (STG) Bilateral [place]-Hallpike negative STG Duration 05/16/18 Three Impairment LE MMT Long-Term Goal (LTG) Right LE MMT grossly to 4/5 LTG Duration 06/15/18 Two Impairment DGI Room Service Supervisor Goal (LTG) Pt to score at least 1823 LTG Duration 06/15/18 One Impairment Activity Participation Room Service Supervisor Goal (LTG) Pt to return to dancing with boyfriend one night a week LTG Duration 06/15/18 Assessment Summary Assessment Pt worried about not making enough progress, however she appears to be displaying increased R strength and stability. Physical Therapy Plan Frequency and Duration Frequency of Treatment 2x/Week Duration of Treatment 10 weeks Plan of Care Start Date 04/15/18 Plan of Care End Date 06/24/18 Therapeutic Interventions Therapeutic Interventions Aquatic Therapy Balance Training Canalithic Repositioning Gait Training Home Exercise Program Manual Therapy Soft Tissue Mobilization Therapeutic Activities Therapeutic Exercises Vestibular Rehabilitation Next Visit Focus/Plan Next Note Type Treatment Note Next Visit Plan Continue current POC
--- NOTE | 2018-05-22 11:12 | PT.OTN ---
Current Diagnoses Multiple sclerosis (05/22/18) Physical Therapy Treatment Note PT-OP-A Visit Information Start: 04/15/18 13:19 Freq: Status: Active Protocol: Document 05/22/18 10:30 DCW (Rec: 05/22/18 11:12 DCW [id number]) Out-Patient Physical Therapy Visit Information Visit Information Visit Type Treatment Note Visit Start Time 10:30 Visit Stop Time 11:15 Total Visit Minutes 45 Visit Number 12 Number of TEACHER OF THE SIGHT IMPAIRED Visits 0 Evaluation Information Evaluation Date 04/15/18 PT-OP-B Current Condition Start: 04/15/18 13:19 Freq: Status: Active Protocol: Document 04/15/18 12:10 DCW (Rec: 04/15/18 13:42 DCW [id number]) Current Condition History of Current Condition Onset Date Multi-year history of Multiple Sclerosis Current Complaints Right leg weakness, dizziness, gait difficulty, decreased walking tolerance History of Current Condition Pt is a 67 year old female well known to this clinic returning due to complications secondary to MS, as well as recent complaints of position- dependent vertigo. Pt reports she has been noticing that her right leg has been wasting significantly, and it has impacted her ability to walk, go out dancing, and get in and out of bed. Additionally, she has been experiencing 10-15 second bouts of dizziness when rolling in bed to her right side. Notes that her boyfriend saw my eyes shaking all over the place when I rolled over, so she was taken to the Urgent care clinic and diagnosed with BPPV, and given home exercises and Meclizine. Prior Treatments and Tests Prior history of PT, home treatment for BPPV Treatment Goals Patient/Caregiver Goals Pt wants to get back to walking increased distances without tiring out, return to dancing, and improve her ability to get her right leg in to and out of bed. Prior Functional Status Baseline Function- ADL's Modified Independent Baseline Function- Mobility Modified Independent Baseline Function- Gait Typically uses SPC, wears right AFO Current Functional Impairments (Reported) Functional Limitations- Mobility/Gait Decreased gait tolerance, becomes off-balance with quick head movements. Functional Limitations- Recreation/ Unable to go out dancing Hobbies PT-OP-C Subjective Start: 04/15/18 13:19 Freq: Status: Active Protocol: Document 05/22/18 10:30 DCW (Rec: 05/22/18 11:12 DCW [id number]) OP-PT Subjective Patient Comments Patient Comments Pt reports she has not worn her AFO today, although it is in her car, so that we don't need to worry about taking it off to exercise her ankle today. PT-OP-D Balance Start: 04/15/18 13:19 Freq: Status: Active Protocol: Document 04/15/18 12:10 DCW (Rec: 04/15/18 13:42 DCW [id number]) OP-PT Balance Assessment Sitting Balance Static Sitting Balance Ability Normal Dynamic Sitting Balance Ability Normal Standing Balance Static Standing Balance Ability Good Dynamic Standing Balance Ability Fair Posada Fall Scale Copyright Permission Albino VINSON, Albino RM, Marisabel SJ. Development of a scale to identify the fall- prone patient. Can J Aging 1989;8;366-7. Halima Posada (2009). Preventing patient falls. (2nd ed). [place]: Siddiqi. PT-OP-E Functional Tests Start: 04/15/18 13:19 Freq: Status: Active Protocol: Document 04/15/18 12:10 DCW (Rec: 04/15/18 13:42 DCW [id number]) Functional Tests Dynamic Gait Index (DGI) Score 13/24 DGI Impairment Rating 40 to <60% Impaired (Score 10- 14) Timed Up and Go (TUG) Score 10.26 Comments Three-trial average TUG Impairment Rating 1 to <20% Impaired (Score 11) PT-OP-J Posture/Palpation/Skin Start: 04/15/18 13:42 Freq: Status: Active Protocol: Document 04/15/18 12:10 DCW (Rec: 04/15/18 13:45 DCW [id number]) Palpation Assessment Location Right lower extremity Palpation Details Noticeable atrophy/muscle wasting of right LE, most notably her right calf PT-OP-M Strength Start: 04/15/18 13:42 Freq: Status: Active Protocol: Document 04/15/18 12:10 DCW (Rec: 04/15/18 13:45 DCW [id number]) Hip Strength Hip Manual Muscle Testing Right Flexion (L2) 3+ Fair+ Abduction 4- Good- Adduction 4 Good Left Flexion (L2) 4+ Good+ Abduction 4- Good- Adduction 4 Good Knee Strength Knee Manual Muscle Testing Right Flexion (S2) 4 Good Extension (L3) 4- Good- Left Flexion (S2) 4+ Good+ Extension (L3) 4+ Good+ Ankle/Foot Strength Ankle and Foot Manual Muscle Testing Right Dorsiflexion (L4) 4- Good- Plantarflexion (S1) 3+ Fair+ Left Dorsiflexion (L4) 4 Good Plantarflexion (S1) 4 Good PT-OP-O Vestibular Start: 04/15/18 13:19 Freq: Status: Active Protocol: Document 04/16/18 11:15 DCW (Rec: 04/16/18 11:56 DCW [id number]) Vestibular Assessment Positional Testing Magaly-Hallpike Negative Left Negative Right PT-OP-Q Treatments Start: 04/15/18 13:19 Freq: Status: Active Protocol: Document 05/22/18 10:30 DCW (Rec: 05/22/18 11:12 DCW [id number]) Cardio Equipment Recumbent Bicycle Duration (Minutes) 6 Resistance 6 Seat Position 3 Other Without AFO Gym Equipment Shuttle Recovery Unilateral Heel Raises Resistance 50# Shuttle Recovery Platform Stable Reps/Time x20 - without AFO Unilateral Squats Resistance 62# Shuttle Recovery Platform Unstable Reps/Time x20 - without AFO Bilateral Squats Resistance 100# Shuttle Recovery Platform Unstable Reps/Time x20 - without AFO Shuttle Balance throw against rebounder Details chains blue Comments large ball, 2-handed throw/ catch 1 Details Red - Wide ARMANDO (EO/EC), Staggered Stance Neuro Re-Education Treatment Balance Activities Step up, over, retro Equipment 6 step Comments in // bars tandem stand, SLS Surface firm, level Comments parallel bars PT-OP-T Assessment and Plan Start: 04/15/18 13:19 Freq: Status: Active Protocol: Document 05/22/18 10:30 DCW (Rec: 05/22/18 11:12 DCW [id number]) Physical Therapy Assessment Impairments Impairments Activity Tolerance Balance Gait Strength Tone Vestibular Goals Four Impairment Positive right Finley-Hallpike Short Term Goal (STG) Bilateral Finley-Hallpike negative STG Duration 05/16/18 Three Impairment LE MMT Residential Goal (LTG) Right LE MMT grossly to 4/5 LTG Duration 06/15/18 Two Impairment DGI Mail Technician Goal (LTG) Pt to score at least 18/23 LTG Duration 06/15/18 One Impairment Activity Participation Mail Technician Goal (LTG) Pt to return to dancing with boyfriend one night a week LTG Duration 06/15/18 Assessment Summary Assessment Pt requested a change in order of activities today, and performed much better than normal with her step up, over, and retro stepping on 6 step after moving it earlier in the session so she was not as fatigued. Physical Therapy Plan Frequency and Duration Frequency of Treatment 2x/Week Duration of Treatment 10 weeks Plan of Care Start Date 04/15/18 Plan of Care End Date 06/24/18 Therapeutic Interventions Therapeutic Interventions Aquatic Therapy Balance Training Canalithic Repositioning Gait Training Home Exercise Program Manual Therapy Soft Tissue Mobilization Therapeutic Activities Therapeutic Exercises Vestibular Rehabilitation Next Visit Focus/Plan Next Note Type Treatment Note Next Visit Plan Continue current POC
--- NOTE | 2018-05-27 11:15 | PT.OTN ---
Current Diagnoses Multiple sclerosis (05/27/18) Physical Therapy Treatment Note PT-OP-A Visit Information Start: 04/15/18 13:19 Freq: Status: Active Protocol: Document 05/27/18 10:30 DCW (Rec: 05/27/18 11:15 DCW [id number]) Out-Patient Physical Therapy Visit Information Visit Information Visit Type Treatment Note Visit Start Time 10:30 Visit Stop Time 11:15 Total Visit Minutes 45 Visit Number 13 Number of BILLET EXAMINER Visits 0 Evaluation Information Evaluation Date 04/15/18 PT-OP-B Current Condition Start: 04/15/18 13:19 Freq: Status: Active Protocol: Document 04/15/18 12:10 DCW (Rec: 04/15/18 13:42 DCW [id number]) Current Condition History of Current Condition Onset Date Multi-year history of Multiple Sclerosis Current Complaints Right leg weakness, dizziness, gait difficulty, decreased walking tolerance History of Current Condition Pt is a 67 year old female well known to this clinic returning due to complications secondary to MS, as well as recent complaints of position- dependent vertigo. Pt reports she has been noticing that her right leg has been wasting significantly, and it has impacted her ability to walk, go out dancing, and get in and out of bed. Additionally, she has been experiencing 10-15 second bouts of dizziness when rolling in bed to her right side. Notes that her boyfriend saw my eyes shaking all over the place when I rolled over, so she was taken to the Urgent care clinic and diagnosed with BPPV, and given home exercises and Meclizine. Prior Treatments and Tests Prior history of PT, home treatment for BPPV Treatment Goals Patient/Caregiver Goals Pt wants to get back to walking increased distances without tiring out, return to dancing, and improve her ability to get her right leg in to and out of bed. Prior Functional Status Baseline Function- ADL's Modified Independent Baseline Function- Mobility Modified Independent Baseline Function- Gait Typically uses SPC, wears right AFO Current Functional Impairments (Reported) Functional Limitations- Mobility/Gait Decreased gait tolerance, becomes off-balance with quick head movements. Functional Limitations- Recreation/ Unable to go out dancing Hobbies PT-OP-C Subjective Start: 04/15/18 13:19 Freq: Status: Active Protocol: Document 05/27/18 10:30 DCW (Rec: 05/27/18 11:15 DCW [id number]) OP-PT Subjective Patient Comments Patient Comments Pt notes that she is doing well today PT-OP-D Balance Start: 04/15/18 13:19 Freq: Status: Active Protocol: Document 04/15/18 12:10 DCW (Rec: 04/15/18 13:42 DCW [id number]) OP-PT Balance Assessment Sitting Balance Static Sitting Balance Ability Normal Dynamic Sitting Balance Ability Normal Standing Balance Static Standing Balance Ability Good Dynamic Standing Balance Ability Fair Posada Fall Scale Copyright Permission Albino JM, Albino RM, Marisabel SJ. Development of a scale to identify the fall- prone patient. Can J Aging 1989;8;366-7. Halima Posada (2009). Preventing patient falls. (2nd ed). [place]: Siddiqi. PT-OP-E Functional Tests Start: 04/15/18 13:19 Freq: Status: Active Protocol: Document 04/15/18 12:10 DCW (Rec: 04/15/18 13:42 DCW [id number]) Functional Tests Dynamic Gait Index (DGI) Score 13/24 DGI Impairment Rating 40 to <60% Impaired (Score 10- 14) Timed Up and Go (TUG) Score 10.26 Comments Three-trial average TUG Impairment Rating 1 to <20% Impaired (Score 11) PT-OP-J Posture/Palpation/Skin Start: 04/15/18 13:42 Freq: Status: Active Protocol: Document 04/15/18 12:10 DCW (Rec: 04/15/18 13:45 DCW [id number]) Palpation Assessment Location Right lower extremity Palpation Details Noticeable atrophy/muscle wasting of right LE, most notably her right calf PT-OP-M Strength Start: 04/15/18 13:42 Freq: Status: Active Protocol: Document 04/15/18 12:10 DCW (Rec: 04/15/18 13:45 DCW [id number]) Hip Strength Hip Manual Muscle Testing Right Flexion (L2) 3+ Fair+ Abduction 4- Good- Adduction 4 Good Left Flexion (L2) 4+ Good+ Abduction 4- Good- Adduction 4 Good Knee Strength Knee Manual Muscle Testing Right Flexion (S2) 4 Good Extension (L3) 4- Good- Left Flexion (S2) 4+ Good+ Extension (L3) 4+ Good+ Ankle/Foot Strength Ankle and Foot Manual Muscle Testing Right Dorsiflexion (L4) 4- Good- Plantarflexion (S1) 3+ Fair+ Left Dorsiflexion (L4) 4 Good Plantarflexion (S1) 4 Good PT-OP-O Vestibular Start: 04/15/18 13:19 Freq: Status: Active Protocol: Document 04/16/18 11:15 DCW (Rec: 04/16/18 11:56 DCW [id number]) Vestibular Assessment Positional Testing Magaly-Hallpike Negative Left Negative Right PT-OP-Q Treatments Start: 04/15/18 13:19 Freq: Status: Active Protocol: Document 05/27/18 10:30 DCW (Rec: 05/27/18 11:15 DCW [id number]) Cardio Equipment Recumbent Bicycle Duration (Minutes) 6 Resistance 6 Seat Position 3 Other Without AFO Gym Equipment Shuttle Recovery Unilateral Heel Raises Resistance 50# Shuttle Recovery Platform Stable Reps/Time x20 - without AFO Unilateral Squats Resistance 62# L, 50# R Shuttle Recovery Platform Unstable Reps/Time x20 - without AFO Bilateral Squats Resistance 100# Shuttle Recovery Platform Unstable Reps/Time x20 - without AFO Shuttle Balance throw against rebounder Details chains blue Comments large ball, 2-handed throw/ catch 1 Details Red - Wide ARMANDO (EO/EC), Staggered Stance Neuro Re-Education Treatment Balance Activities hurdles Details Hurdles/foam Comments 1 step in between, sideways PT-OP-T Assessment and Plan Start: 04/15/18 13:19 Freq: Status: Active Protocol: Document 05/27/18 10:30 DCW (Rec: 05/27/18 11:15 DCW [id number]) Physical Therapy Assessment Impairments Impairments Activity Tolerance Balance Gait Strength Tone Vestibular Goals Four Impairment Positive right Magaly-Hallpike Short Term Goal (STG) Bilateral Magaly-Hallpike negative STG Duration 05/16/18 Three Impairment LE MMT Safety Engineer Pressure Vessels Goal (LTG) Right LE MMT grossly to 4/5 LTG Duration 06/15/18 Two Impairment DGI Residential Goal (LTG) Pt to score at least 18/23 LTG Duration 06/15/18 One Impairment Activity Participation Residential Goal (LTG) Pt to return to dancing with boyfriend one night a week LTG Duration 06/15/18 Assessment Summary Assessment Pt tolerated treatment well today, no new problems or concerns. Physical Therapy Plan Frequency and Duration Frequency of Treatment 2x/Week Duration of Treatment 10 weeks Plan of Care Start Date 04/15/18 Plan of Care End Date 06/24/18 Therapeutic Interventions Therapeutic Interventions Aquatic Therapy Balance Training Canalithic Repositioning Gait Training Home Exercise Program Manual Therapy Soft Tissue Mobilization Therapeutic Activities Therapeutic Exercises Vestibular Rehabilitation Next Visit Focus/Plan Next Note Type Treatment Note Next Visit Plan Continue current POC
--- NOTE | 2018-06-03 13:28 | PT.OTN ---
Current Diagnoses Multiple sclerosis (06/03/18) Physical Therapy Treatment Note PT-OP-A Visit Information Start: 04/15/18 13:19 Freq: Status: Active Protocol: Document 06/03/18 10:30 DCW (Rec: 06/03/18 13:28 DCW [id number]) Out-Patient Physical Therapy Visit Information Visit Information Visit Type Treatment Note Visit Start Time 10:30 Visit Stop Time 11:15 Total Visit Minutes 45 Visit Number 14 Number of VISCOSITY WORKER Visits 0 Evaluation Information Evaluation Date 04/15/18 PT-OP-B Current Condition Start: 04/15/18 13:19 Freq: Status: Active Protocol: Document 04/15/18 12:10 DCW (Rec: 04/15/18 13:42 DCW [id number]) Current Condition History of Current Condition Onset Date Multi-year history of Multiple Sclerosis Current Complaints Right leg weakness, dizziness, gait difficulty, decreased walking tolerance History of Current Condition Pt is a 67 year old female well known to this clinic returning due to complications secondary to MS, as well as recent complaints of position- dependent vertigo. Pt reports she has been noticing that her right leg has been wasting significantly, and it has impacted her ability to walk, go out dancing, and get in and out of bed. Additionally, she has been experiencing 10-15 second bouts of dizziness when rolling in bed to her right side. Notes that her boyfriend saw my eyes shaking all over the place when I rolled over, so she was taken to the Urgent care clinic and diagnosed with BPPV, and given home exercises and Meclizine. Prior Treatments and Tests Prior history of PT, home treatment for BPPV Treatment Goals Patient/Caregiver Goals Pt wants to get back to walking increased distances without tiring out, return to dancing, and improve her ability to get her right leg in to and out of bed. Prior Functional Status Baseline Function- ADL's Modified Independent Baseline Function- Mobility Modified Independent Baseline Function- Gait Typically uses SPC, wears right AFO Current Functional Impairments (Reported) Functional Limitations- Mobility/Gait Decreased gait tolerance, becomes off-balance with quick head movements. Functional Limitations- Recreation/ Unable to go out dancing Hobbies PT-OP-C Subjective Start: 04/15/18 13:19 Freq: Status: Active Protocol: Document 06/03/18 10:30 DCW (Rec: 06/03/18 13:28 DCW [id number]) OP-PT Subjective Patient Comments Patient Comments Pt reports she is fantastic today. PT-OP-D Balance Start: 04/15/18 13:19 Freq: Status: Active Protocol: Document 04/15/18 12:10 DCW (Rec: 04/15/18 13:42 DCW [id number]) OP-PT Balance Assessment Sitting Balance Static Sitting Balance Ability Normal Dynamic Sitting Balance Ability Normal Standing Balance Static Standing Balance Ability Good Dynamic Standing Balance Ability Fair Posada Fall Scale Copyright Permission Albino JM, Albino RM, Marisabel SJ. Development of a scale to identify the fall- prone patient. Can J Aging 1989;8;366-7. Halima Posada (2009). Preventing patient falls. (2nd ed). [place]: Siddiqi. PT-OP-E Functional Tests Start: 04/15/18 13:19 Freq: Status: Active Protocol: Document 04/15/18 12:10 DCW (Rec: 04/15/18 13:42 DCW [id number]) Functional Tests Dynamic Gait Index (DGI) Score 13/24 DGI Impairment Rating 40 to <60% Impaired (Score 10- 14) Timed Up and Go (TUG) Score 10.26 Comments Three-trial average TUG Impairment Rating 1 to <20% Impaired (Score 11) PT-OP-J Posture/Palpation/Skin Start: 04/15/18 13:42 Freq: Status: Active Protocol: Document 04/15/18 12:10 DCW (Rec: 04/15/18 13:45 DCW [id number]) Palpation Assessment Location Right lower extremity Palpation Details Noticeable atrophy/muscle wasting of right LE, most notably her right calf PT-OP-M Strength Start: 04/15/18 13:42 Freq: Status: Active Protocol: Document 04/15/18 12:10 DCW (Rec: 04/15/18 13:45 DCW [id number]) Hip Strength Hip Manual Muscle Testing Right Flexion (L2) 3+ Fair+ Abduction 4- Good- Adduction 4 Good Left Flexion (L2) 4+ Good+ Abduction 4- Good- Adduction 4 Good Knee Strength Knee Manual Muscle Testing Right Flexion (S2) 4 Good Extension (L3) 4- Good- Left Flexion (S2) 4+ Good+ Extension (L3) 4+ Good+ Ankle/Foot Strength Ankle and Foot Manual Muscle Testing Right Dorsiflexion (L4) 4- Good- Plantarflexion (S1) 3+ Fair+ Left Dorsiflexion (L4) 4 Good Plantarflexion (S1) 4 Good PT-OP-O Vestibular Start: 04/15/18 13:19 Freq: Status: Active Protocol: Document 04/16/18 11:15 DCW (Rec: 04/16/18 11:56 DCW [id number]) Vestibular Assessment Positional Testing Magaly-Hallpike Negative Left Negative Right PT-OP-Q Treatments Start: 04/15/18 13:19 Freq: Status: Active Protocol: Document 06/03/18 10:30 DCW (Rec: 06/03/18 13:28 DCW [id number]) Cardio Equipment Recumbent Bicycle Duration (Minutes) 6 Resistance 6 Seat Position 3 Other Without AFO Gym Equipment Shuttle Recovery Unilateral Heel Raises Resistance 50# Shuttle Recovery Platform Stable Reps/Time x20 - without AFO Unilateral Squats Resistance 62# Shuttle Recovery Platform Unstable Reps/Time x20 - without AFO Bilateral Squats Resistance 100# Shuttle Recovery Platform Unstable Reps/Time x20 - without AFO Shuttle Balance throw against rebounder Details chains blue Comments large ball, 2-handed throw/ catch Therapeutic Exercises Standing Exercises sidestepping Standing Exercise Name Resisted sode-stepping Resistance Yellow Equipment Used T-band Manual Therapy Treatment Soft Tissue Mobilization 2 Body Location Right Lumbar paravertebral musculature Mobilization Type Sustained Pressure Intensity/Depth Moderate Body Position Sidelying 1 Body Location Right Quadratus Lumborum Mobilization Type Sustained Pressure Intensity/Depth Moderate Body Position Sidelying Manual Traction Lumbar Details Right LE long-axis traction Body Position Supine PT-OP-T Assessment and Plan Start: 04/15/18 13:19 Freq: Status: Active Protocol: Document 06/03/18 10:30 DCW (Rec: 06/03/18 13:28 DCW [id number]) Physical Therapy Assessment Impairments Impairments Activity Tolerance Balance Gait Strength Tone Vestibular Goals Four Impairment Positive right Magaly-Hallpike Short Term Goal (STG) Bilateral Alexis-Hallpike negative STG Duration 05/16/18 Three Impairment LE MMT Sleeper Cutter Goal (LTG) Right LE MMT grossly to 4/5 LTG Duration 12/9/18 Two Impairment DGI Sleeper Cutter Goal (LTG) Pt to score at least 18/23 LTG Duration 06/15/18 One Impairment Activity Participation Mcc Goal (LTG) Pt to return to dancing with boyfriend one night a week LTG Duration 06/15/18 Assessment Summary Assessment Began working today on pt's right-sided tightness attempting to decrease her hip hiking to improve stability. Physical Therapy Plan Frequency and Duration Frequency of Treatment 2x/Week Duration of Treatment 10 weeks Plan of Care Start Date 04/15/18 Plan of Care End Date 06/24/18 Therapeutic Interventions Therapeutic Interventions Aquatic Therapy Balance Training Canalithic Repositioning Gait Training Home Exercise Program Manual Therapy Soft Tissue Mobilization Therapeutic Activities Therapeutic Exercises Vestibular Rehabilitation Next Visit Focus/Plan Next Note Type Treatment Note Next Visit Plan Continue current POC
--- NOTE | 2018-06-05 11:13 | PT.OTN ---
Current Diagnoses Multiple sclerosis (06/05/18) Physical Therapy Treatment Note PT-OP-A Visit Information Start: 04/15/18 13:19 Freq: Status: Active Protocol: Document 06/05/18 10:30 DCW (Rec: 06/05/18 11:13 DCW [id number]) Out-Patient Physical Therapy Visit Information Visit Information Visit Type Treatment Note Visit Start Time 10:30 Visit Stop Time 11:15 Total Visit Minutes 45 Visit Number 15 Number of ASSOCIATE ATTORNEY Visits 0 Evaluation Information Evaluation Date 04/15/18 PT-OP-B Current Condition Start: 04/15/18 13:19 Freq: Status: Active Protocol: Document 04/15/18 12:10 DCW (Rec: 04/15/18 13:42 DCW [id number]) Current Condition History of Current Condition Onset Date Multi-year history of Multiple Sclerosis Current Complaints Right leg weakness, dizziness, gait difficulty, decreased walking tolerance History of Current Condition Pt is a 67 year old female well known to this clinic returning due to complications secondary to MS, as well as recent complaints of position- dependent vertigo. Pt reports she has been noticing that her right leg has been wasting significantly, and it has impacted her ability to walk, go out dancing, and get in and out of bed. Additionally, she has been experiencing 10-15 second bouts of dizziness when rolling in bed to her right side. Notes that her boyfriend saw my eyes shaking all over the place when I rolled over, so she was taken to the Urgent care clinic and diagnosed with BPPV, and given home exercises and Meclizine. Prior Treatments and Tests Prior history of PT, home treatment for BPPV Treatment Goals Patient/Caregiver Goals Pt wants to get back to walking increased distances without tiring out, return to dancing, and improve her ability to get her right leg in to and out of bed. Prior Functional Status Baseline Function- ADL's Modified Independent Baseline Function- Mobility Modified Independent Baseline Function- Gait Typically uses SPC, wears right AFO Current Functional Impairments (Reported) Functional Limitations- Mobility/Gait Decreased gait tolerance, becomes off-balance with quick head movements. Functional Limitations- Recreation/ Unable to go out dancing Hobbies PT-OP-C Subjective Start: 04/15/18 13:19 Freq: Status: Active Protocol: Document 06/05/18 10:30 DCW (Rec: 06/05/18 11:13 DCW [id number]) OP-PT Subjective Patient Comments Patient Comments Pt reports she has noticed while doing her stretches in the morning that her right leg is stronger. PT-OP-D Balance Start: 04/15/18 13:19 Freq: Status: Active Protocol: Document 04/15/18 12:10 DCW (Rec: 04/15/18 13:42 DCW [id number]) OP-PT Balance Assessment Sitting Balance Static Sitting Balance Ability Normal Dynamic Sitting Balance Ability Normal Standing Balance Static Standing Balance Ability Good Dynamic Standing Balance Ability Fair Posada Fall Scale Copyright Permission Albino VINSON, Albino RM, Marisabel SJ. Development of a scale to identify the fall- prone patient. Can J Aging 1989;8;366-7. Halima Posada (2009). Preventing patient falls. (2nd ed). [place]: Siddiqi. PT-OP-E Functional Tests Start: 04/15/18 13:19 Freq: Status: Active Protocol: Document 04/15/18 12:10 DCW (Rec: 04/15/18 13:42 DCW [id number]) Functional Tests Dynamic Gait Index (DGI) Score 13/24 DGI Impairment Rating 40 to <60% Impaired (Score 10- 14) Timed Up and Go (TUG) Score 10.26 Comments Three-trial average TUG Impairment Rating 1 to <20% Impaired (Score 11) PT-OP-J Posture/Palpation/Skin Start: 04/15/18 13:42 Freq: Status: Active Protocol: Document 04/15/18 12:10 DCW (Rec: 04/15/18 13:45 DCW [id number]) Palpation Assessment Location Right lower extremity Palpation Details Noticeable atrophy/muscle wasting of right LE, most notably her right calf PT-OP-M Strength Start: 04/15/18 13:42 Freq: Status: Active Protocol: Document 04/15/18 12:10 DCW (Rec: 04/15/18 13:45 DCW [id number]) Hip Strength Hip Manual Muscle Testing Right Flexion (L2) 3+ Fair+ Abduction 4- Good- Adduction 4 Good Left Flexion (L2) 4+ Good+ Abduction 4- Good- Adduction 4 Good Knee Strength Knee Manual Muscle Testing Right Flexion (S2) 4 Good Extension (L3) 4- Good- Left Flexion (S2) 4+ Good+ Extension (L3) 4+ Good+ Ankle/Foot Strength Ankle and Foot Manual Muscle Testing Right Dorsiflexion (L4) 4- Good- Plantarflexion (S1) 3+ Fair+ Left Dorsiflexion (L4) 4 Good Plantarflexion (S1) 4 Good PT-OP-O Vestibular Start: 04/15/18 13:19 Freq: Status: Active Protocol: Document 04/16/18 11:15 DCW (Rec: 04/16/18 11:56 DCW [id number]) Vestibular Assessment Positional Testing Mag[place]-Hallpike Negative Left Negative Right PT-OP-Q Treatments Start: 04/15/18 13:19 Freq: Status: Active Protocol: Document 06/05/18 10:30 DCW (Rec: 06/05/18 11:13 DCW [id number]) Cardio Equipment Recumbent Bicycle Duration (Minutes) 6 Resistance 6 Seat Position 3 Other Without AFO Gym Equipment Shuttle Recovery Unilateral Heel Raises Resistance 50# Shuttle Recovery Platform Stable Reps/Time x20 - without AFO Unilateral Squats Resistance 62# Shuttle Recovery Platform Unstable Reps/Time x20 - without AFO Bilateral Squats Resistance 100# Shuttle Recovery Platform Unstable Reps/Time x20 - without AFO Shuttle Balance 1 Details Red - Wide ARMANDO (EO/EC), Staggered Stance, Ball Toss Manual Therapy Treatment Soft Tissue Mobilization 2 Body Location Right Lumbar paravertebral musculature Mobilization Type Sustained Pressure Intensity/Depth Moderate Body Position Sidelying 1 Body Location Right Quadratus Lumborum Mobilization Type Sustained Pressure Intensity/Depth Moderate Body Position Sidelying Manual Traction Lumbar Details Right LE long-axis traction Body Position Supine PT-OP-T Assessment and Plan Start: 04/15/18 13:19 Freq: Status: Active Protocol: Document 06/05/18 10:30 DCW (Rec: 06/05/18 11:13 DCW [id number]) Physical Therapy Assessment Impairments Impairments Activity Tolerance Balance Gait Strength Tone Vestibular Goals Four Impairment Positive right [place]-Hallpike Short Term Goal (STG) Bilateral [place]-Hallpike negative STG Duration 05/16/18 Three Impairment LE MMT Paving Machine Operator Goal (LTG) Right LE MMT grossly to 4/5 LTG Duration 06/15/18 Two Impairment DGI Paving Machine Operator Goal (LTG) Pt to score at least 18/23 LTG Duration 06/15/18 One Impairment Activity Participation Paving Machine Operator Goal (LTG) Pt to return to dancing with boyfriend one night a week LTG Duration 06/15/18 Assessment Summary Assessment Pt tolerating manual treatment of right-sided hip tightness well, reports feeling like her gait improves afterward. Physical Therapy Plan Frequency and Duration Frequency of Treatment 2x/Week Duration of Treatment 10 weeks Plan of Care Start Date 04/15/18 Plan of Care End Date 06/24/18 Therapeutic Interventions Therapeutic Interventions Aquatic Therapy Balance Training Canalithic Repositioning Gait Training Home Exercise Program Manual Therapy Soft Tissue Mobilization Therapeutic Activities Therapeutic Exercises Vestibular Rehabilitation Next Visit Focus/Plan Next Note Type Treatment Note Next Visit Plan Continue current POC
--- NOTE | 2018-06-11 11:56 | PT.OTN ---
Current Diagnoses Multiple sclerosis (06/11/18) Physical Therapy Treatment Note PT-OP-A Visit Information Start: 04/15/18 13:19 Freq: Status: Active Protocol: Document 06/11/18 11:15 DCW (Rec: 06/11/18 11:56 DCW [id number]) Out-Patient Physical Therapy Visit Information Visit Information Visit Type Treatment Note Visit Start Time 10:30 Visit Stop Time 11:15 Total Visit Minutes 45 Visit Number 15 Number of SHOW HORSE DRIVER Visits 0 Evaluation Information Evaluation Date 04/15/18 PT-OP-B Current Condition Start: 04/15/18 13:19 Freq: Status: Active Protocol: Document 04/15/18 12:10 DCW (Rec: 04/15/18 13:42 DCW [id number]) Current Condition History of Current Condition Onset Date Multi-year history of Multiple Sclerosis Current Complaints Right leg weakness, dizziness, gait difficulty, decreased walking tolerance History of Current Condition Pt is a 67 year old female well known to this clinic returning due to complications secondary to MS, as well as recent complaints of position- dependent vertigo. Pt reports she has been noticing that her right leg has been wasting significantly, and it has impacted her ability to walk, go out dancing, and get in and out of bed. Additionally, she has been experiencing 10-15 second bouts of dizziness when rolling in bed to her right side. Notes that her boyfriend saw my eyes shaking all over the place when I rolled over, so she was taken to the Urgent care clinic and diagnosed with BPPV, and given home exercises and Meclizine. Prior Treatments and Tests Prior history of PT, home treatment for BPPV Treatment Goals Patient/Caregiver Goals Pt wants to get back to walking increased distances without tiring out, return to dancing, and improve her ability to get her right leg in to and out of bed. Prior Functional Status Baseline Function- ADL's Modified Independent Baseline Function- Mobility Modified Independent Baseline Function- Gait Typically uses SPC, wears right AFO Current Functional Impairments (Reported) Functional Limitations- Mobility/Gait Decreased gait tolerance, becomes off-balance with quick head movements. Functional Limitations- Recreation/ Unable to go out dancing Hobbies PT-OP-C Subjective Start: 04/15/18 13:19 Freq: Status: Active Protocol: Document 06/11/18 11:15 DCW (Rec: 06/11/18 11:56 DCW [id number]) OP-PT Subjective Patient Comments Patient Comments Pt admits that she partied a little too hard last night, and is struggling getting moving this morning. PT-OP-D Balance Start: 04/15/18 13:19 Freq: Status: Active Protocol: Document 04/15/18 12:10 DCW (Rec: 04/15/18 13:42 DCW [id number]) OP-PT Balance Assessment Sitting Balance Static Sitting Balance Ability Normal Dynamic Sitting Balance Ability Normal Standing Balance Static Standing Balance Ability Good Dynamic Standing Balance Ability Fair Posada Fall Scale Copyright Permission Albino VINSON, Albino RM, Marisabel SJ. Development of a scale to identify the fall- prone patient. Can J Aging 1989;8;366-7. Halima Posada (2009). Preventing patient falls. (2nd ed). [place]: Siddiqi. PT-OP-E Functional Tests Start: 04/15/18 13:19 Freq: Status: Active Protocol: Document 04/15/18 12:10 DCW (Rec: 04/15/18 13:42 DCW [id number]) Functional Tests Dynamic Gait Index (DGI) Score 13/24 DGI Impairment Rating 40 to <60% Impaired (Score 10- 14) Timed Up and Go (TUG) Score 10.26 Comments Three-trial average TUG Impairment Rating 1 to <20% Impaired (Score 11) PT-OP-J Posture/Palpation/Skin Start: 04/15/18 13:42 Freq: Status: Active Protocol: Document 04/15/18 12:10 DCW (Rec: 04/15/18 13:45 DCW [id number]) Palpation Assessment Location Right lower extremity Palpation Details Noticeable atrophy/muscle wasting of right LE, most notably her right calf PT-OP-M Strength Start: 04/15/18 13:42 Freq: Status: Active Protocol: Document 04/15/18 12:10 DCW (Rec: 04/15/18 13:45 DCW [id number]) Hip Strength Hip Manual Muscle Testing Right Flexion (L2) 3+ Fair+ Abduction 4- Good- Adduction 4 Good Left Flexion (L2) 4+ Good+ Abduction 4- Good- Adduction 4 Good Knee Strength Knee Manual Muscle Testing Right Flexion (S2) 4 Good Extension (L3) 4- Good- Left Flexion (S2) 4+ Good+ Extension (L3) 4+ Good+ Ankle/Foot Strength Ankle and Foot Manual Muscle Testing Right Dorsiflexion (L4) 4- Good- Plantarflexion (S1) 3+ Fair+ Left Dorsiflexion (L4) 4 Good Plantarflexion (S1) 4 Good PT-OP-O Vestibular Start: 04/15/18 13:19 Freq: Status: Active Protocol: Document 04/16/18 11:15 DCW (Rec: 04/16/18 11:56 DCW [id number]) Vestibular Assessment Positional Testing Magaly-Hallpike Negative Left Negative Right PT-OP-Q Treatments Start: 04/15/18 13:19 Freq: Status: Active Protocol: Document 06/11/18 11:15 DCW (Rec: 06/11/18 11:56 DCW [id number]) Cardio Equipment Recumbent Bicycle Duration (Minutes) 6 Resistance 6 Seat Position 3 Other Without AFO Gym Equipment Shuttle Recovery Unilateral Heel Raises Resistance 50# Shuttle Recovery Platform Stable Reps/Time x20 - without AFO Unilateral Squats Resistance 62# Shuttle Recovery Platform Unstable Reps/Time x20 - without AFO Bilateral Squats Resistance 100# Shuttle Recovery Platform Unstable Reps/Time x20 - without AFO Shuttle Balance 1 Details Red - Wide ARMANDO Comments Ball Toss Manual Therapy Treatment Soft Tissue Mobilization 2 Body Location Right Lumbar paravertebral musculature Mobilization Type Sustained Pressure Intensity/Depth Moderate Body Position Sidelying 1 Body Location Right Quadratus Lumborum Mobilization Type Sustained Pressure Intensity/Depth Moderate Body Position Sidelying Manual Traction Lumbar Details Right LE long-axis traction Body Position Supine PT-OP-T Assessment and Plan Start: 04/15/18 13:19 Freq: Status: Active Protocol: Document 06/11/18 11:15 DCW (Rec: 06/11/18 11:56 DCW [id number]) Physical Therapy Assessment Impairments Impairments Activity Tolerance Balance Gait Strength Tone Vestibular Goals Four Impairment Positive right [place]-Hallpike Short Term Goal (STG) Bilateral [place]-Hallpike negative STG Duration 05/16/18 Three Impairment LE MMT Skilled Nursing Goal (LTG) Right LE MMT grossly to 4/5 LTG Duration 06/15/18 Two Impairment DGI Skilled Nursing Goal (LTG) Pt to score at least 18/23 LTG Duration 06/15/18 One Impairment Activity Participation Ups Driver Goal (LTG) Pt to return to dancing with boyfriend one night a week LTG Duration 06/15/18 Assessment Summary Assessment Pt experiencing overall fatigue today after a long night last night, admits she probably wouldn't do too well with some of her challenging balance exercises. Physical Therapy Plan Frequency and Duration Frequency of Treatment 2x/Week Duration of Treatment 10 weeks Plan of Care Start Date 04/15/18 Plan of Care End Date 06/24/18 Therapeutic Interventions Therapeutic Interventions Aquatic Therapy Balance Training Canalithic Repositioning Gait Training Home Exercise Program Manual Therapy Soft Tissue Mobilization Therapeutic Activities Therapeutic Exercises Vestibular Rehabilitation Next Visit Focus/Plan Next Note Type Treatment Note Next Visit Plan Continue current POC
--- NOTE | 2018-06-18 11:58 | PT.OTN ---
Current Diagnoses Multiple sclerosis (06/18/18) Physical Therapy Treatment Note PT-OP-A Visit Information Start: 04/15/18 13:19 Freq: Status: Active Protocol: Document 06/18/18 11:15 DCW (Rec: 06/18/18 11:58 DCW [id number]) Out-Patient Physical Therapy Visit Information Visit Information Visit Type Treatment Note Visit Start Time 11:15 Visit Stop Time 12:00 Total Visit Minutes 45 Visit Number 17 Number of PATROL DEPUTY SHERIFF Visits 0 Evaluation Information Evaluation Date 04/15/18 PT-OP-B Current Condition Start: 04/15/18 13:19 Freq: Status: Active Protocol: Document 04/15/18 12:10 DCW (Rec: 04/15/18 13:42 DCW [id number]) Current Condition History of Current Condition Onset Date Multi-year history of Multiple Sclerosis Current Complaints Right leg weakness, dizziness, gait difficulty, decreased walking tolerance History of Current Condition Pt is a 67 year old female well known to this clinic returning due to complications secondary to MS, as well as recent complaints of position- dependent vertigo. Pt reports she has been noticing that her right leg has been wasting significantly, and it has impacted her ability to walk, go out dancing, and get in and out of bed. Additionally, she has been experiencing 10-15 second bouts of dizziness when rolling in bed to her right side. Notes that her boyfriend saw my eyes shaking all over the place when I rolled over, so she was taken to the Urgent care clinic and diagnosed with BPPV, and given home exercises and Meclizine. Prior Treatments and Tests Prior history of PT, home treatment for BPPV Treatment Goals Patient/Caregiver Goals Pt wants to get back to walking increased distances without tiring out, return to dancing, and improve her ability to get her right leg in to and out of bed. Prior Functional Status Baseline Function- ADL's Modified Independent Baseline Function- Mobility Modified Independent Baseline Function- Gait Typically uses SPC, wears right AFO Current Functional Impairments (Reported) Functional Limitations- Mobility/Gait Decreased gait tolerance, becomes off-balance with quick head movements. Functional Limitations- Recreation/ Unable to go out dancing Hobbies PT-OP-C Subjective Start: 04/15/18 13:19 Freq: Status: Active Protocol: Document 06/18/18 11:15 DCW (Rec: 06/18/18 11:58 DCW [id number]) OP-PT Subjective Patient Comments Patient Comments Pt notes that she came right from exercise class, so she doesn't need to warm up on the bike today. Pt also admits that she has not been wearing her AFO very often. PT-OP-D Balance Start: 04/15/18 13:19 Freq: Status: Active Protocol: Document 04/15/18 12:10 DCW (Rec: 04/15/18 13:42 DCW [id number]) OP-PT Balance Assessment Sitting Balance Static Sitting Balance Ability Normal Dynamic Sitting Balance Ability Normal Standing Balance Static Standing Balance Ability Good Dynamic Standing Balance Ability Fair Posada Fall Scale Copyright Permission Albino VINSON, Albino RM, Marisabel SJ. Development of a scale to identify the fall- prone patient. Can J Aging 1989;8;366-7. Halima Posada (2009). Preventing patient falls. (2nd ed). [place]: Siddiqi. PT-OP-E Functional Tests Start: 04/15/18 13:19 Freq: Status: Active Protocol: Document 04/15/18 12:10 DCW (Rec: 04/15/18 13:42 DCW [id number]) Functional Tests Dynamic Gait Index (DGI) Score 13/24 DGI Impairment Rating 40 to <60% Impaired (Score 10- 14) Timed Up and Go (TUG) Score 10.26 Comments Three-trial average TUG Impairment Rating 1 to <20% Impaired (Score 11) PT-OP-J Posture/Palpation/Skin Start: 04/15/18 13:42 Freq: Status: Active Protocol: Document 04/15/18 12:10 DCW (Rec: 04/15/18 13:45 DCW [id number]) Palpation Assessment Location Right lower extremity Palpation Details Noticeable atrophy/muscle wasting of right LE, most notably her right calf PT-OP-M Strength Start: 04/15/18 13:42 Freq: Status: Active Protocol: Document 04/15/18 12:10 DCW (Rec: 04/15/18 13:45 DCW [id number]) Hip Strength Hip Manual Muscle Testing Right Flexion (L2) 3+ Fair+ Abduction 4- Good- Adduction 4 Good Left Flexion (L2) 4+ Good+ Abduction 4- Good- Adduction 4 Good Knee Strength Knee Manual Muscle Testing Right Flexion (S2) 4 Good Extension (L3) 4- Good- Left Flexion (S2) 4+ Good+ Extension (L3) 4+ Good+ Ankle/Foot Strength Ankle and Foot Manual Muscle Testing Right Dorsiflexion (L4) 4- Good- Plantarflexion (S1) 3+ Fair+ Left Dorsiflexion (L4) 4 Good Plantarflexion (S1) 4 Good PT-OP-O Vestibular Start: 04/15/18 13:19 Freq: Status: Active Protocol: Document 04/16/18 11:15 DCW (Rec: 04/16/18 11:56 DCW [id number]) Vestibular Assessment Positional Testing [place]-Hallpike Negative Left Negative Right PT-OP-Q Treatments Start: 04/15/18 13:19 Freq: Status: Active Protocol: Document 06/18/18 11:15 DCW (Rec: 06/18/18 11:58 DCW [id number]) Gym Equipment Shuttle Recovery Unilateral Heel Raises Resistance 50# Shuttle Recovery Platform Stable Reps/Time x20 - without AFO Unilateral Squats Resistance 62# Shuttle Recovery Platform Unstable Reps/Time x20 - without AFO Bilateral Squats Resistance 100# Shuttle Recovery Platform Unstable Reps/Time x20 - without AFO Shuttle Balance 1 Details Red - Wide ARMANDO Comments Ball Toss Therapeutic Exercises Standing Exercises sidestepping Standing Exercise Name Resisted side-stepping Resistance Yellow Equipment Used T-band Manual Therapy Treatment Soft Tissue Mobilization 2 Body Location Right Lumbar paravertebral musculature Mobilization Type Sustained Pressure Intensity/Depth Moderate Body Position Sidelying 1 Body Location Right Quadratus Lumborum Mobilization Type Sustained Pressure Intensity/Depth Moderate Body Position Sidelying Manual Traction Lumbar Details Right LE long-axis traction Body Position Supine PT-OP-T Assessment and Plan Start: 04/15/18 13:19 Freq: Status: Active Protocol: Document 06/18/18 11:15 DCW (Rec: 06/18/18 11:58 DCW [id number]) Physical Therapy Assessment Impairments Impairments Activity Tolerance Balance Gait Strength Tone Vestibular Goals Four Impairment Positive right [place]-Hallpike Short Term Goal (STG) Bilateral [place]-Hallpike negative STG Duration 05/16/18 Three Impairment LE MMT Senior Care Goal (LTG) Right LE MMT grossly to 4/5 LTG Duration 06/15/18 Two Impairment DGI Child Day Care Center Worker Goal (LTG) Pt to score at least 18/23 LTG Duration 06/15/18 One Impairment Activity Participation Senior Care Goal (LTG) Pt to return to dancing with boyfriend one night a week LTG Duration 06/15/18 Assessment Summary Assessment Pt did well today, no complaints of increased fatigue or difficulty. Physical Therapy Plan Frequency and Duration Frequency of Treatment 2x/Week Duration of Treatment 10 weeks Plan of Care Start Date 04/15/18 Plan of Care End Date 06/24/18 Therapeutic Interventions Therapeutic Interventions Aquatic Therapy Balance Training Canalithic Repositioning Gait Training Home Exercise Program Manual Therapy Soft Tissue Mobilization Therapeutic Activities Therapeutic Exercises Vestibular Rehabilitation Next Visit Focus/Plan Next Note Type Treatment Note Next Visit Plan Continue current POC
--- NOTE | 2018-07-02 15:13 | PT.OTN ---
Current Diagnoses Multiple sclerosis (07/02/18) Physical Therapy Treatment Note PT-OP-A Visit Information Start: 04/15/18 13:19 Freq: Status: Active Protocol: Document 07/02/18 14:30 DCW (Rec: 07/02/18 15:13 DCW [id number]) Out-Patient Physical Therapy Visit Information Visit Information Visit Type Treatment Note Visit Start Time 14:30 Visit Stop Time 15:15 Total Visit Minutes 45 Visit Number 18 Number of AGENCY TRAINER Visits 0 Evaluation Information Evaluation Date 04/15/18 PT-OP-B Current Condition Start: 04/15/18 13:19 Freq: Status: Active Protocol: Document 04/15/18 12:10 DCW (Rec: 04/15/18 13:42 DCW [id number]) Current Condition History of Current Condition Onset Date Multi-year history of Multiple Sclerosis Current Complaints Right leg weakness, dizziness, gait difficulty, decreased walking tolerance History of Current Condition Pt is a 67 year old female well known to this clinic returning due to complications secondary to MS, as well as recent complaints of position- dependent vertigo. Pt reports she has been noticing that her right leg has been wasting significantly, and it has impacted her ability to walk, go out dancing, and get in and out of bed. Additionally, she has been experiencing 10-15 second bouts of dizziness when rolling in bed to her right side. Notes that her boyfriend saw my eyes shaking all over the place when I rolled over, so she was taken to the Urgent care clinic and diagnosed with BPPV, and given home exercises and Meclizine. Prior Treatments and Tests Prior history of PT, home treatment for BPPV Treatment Goals Patient/Caregiver Goals Pt wants to get back to walking increased distances without tiring out, return to dancing, and improve her ability to get her right leg in to and out of bed. Prior Functional Status Baseline Function- ADL's Modified Independent Baseline Function- Mobility Modified Independent Baseline Function- Gait Typically uses SPC, wears right AFO Current Functional Impairments (Reported) Functional Limitations- Mobility/Gait Decreased gait tolerance, becomes off-balance with quick head movements. Functional Limitations- Recreation/ Unable to go out dancing Hobbies PT-OP-C Subjective Start: 04/15/18 13:19 Freq: Status: Active Protocol: Document 07/02/18 14:30 DCW (Rec: 07/02/18 15:13 DCW [id number]) OP-PT Subjective Patient Comments Patient Comments Pt apologizes, but she stayed at a friends last night, and does not have her tennis shoes today, only her dancing shoes , so we'll just see how it goes. PT-OP-D Balance Start: 04/15/18 13:19 Freq: Status: Active Protocol: Document 07/02/18 14:30 DCW (Rec: 07/02/18 14:52 DCW [id number]) OP-PT Balance Assessment Sitting Balance Static Sitting Balance Ability Normal Dynamic Sitting Balance Ability Normal Standing Balance Static Standing Balance Ability Good Dynamic Standing Balance Ability Fair Posada Fall Scale Copyright Permission Albino VINSON, Albino RM, Marisabel SJ. Development of a scale to identify the fall- prone patient. Can J Aging 1989;8;366-7. Halima Posada (2009). Preventing patient falls. (2nd ed). [place]: Siddiqi. PT-OP-E Functional Tests Start: 04/15/18 13:19 Freq: Status: Active Protocol: Document 07/02/18 14:30 DCW (Rec: 07/02/18 14:52 DCW [id number]) Functional Tests Dynamic Gait Index (DGI) Score 16/24 DGI Impairment Rating 20 to <40% Impaired (Score 15- 19) Timed Up and Go (TUG) Score 10.61 Comments Three-trial average TUG Impairment Rating 1 to <20% Impaired (Score 11) PT-OP-J Posture/Palpation/Skin Start: 04/15/18 13:42 Freq: Status: Active Protocol: Document 07/02/18 14:30 DCW (Rec: 07/02/18 14:52 DCW [id number]) Palpation Assessment Location Right lower extremity Palpation Details Noticeable atrophy/muscle wasting of right LE, most notably her right calf PT-OP-M Strength Start: 04/15/18 13:42 Freq: Status: Active Protocol: Document 07/02/18 14:30 DCW (Rec: 07/02/18 14:52 DCW [id number]) Hip Strength Hip Manual Muscle Testing Right Flexion (L2) 3+ Fair+ Abduction 4 Good Adduction 4+ Good+ Left Flexion (L2) 4+ Good+ Abduction 4 Good Adduction 4+ Good+ Knee Strength Knee Manual Muscle Testing Right Flexion (S2) 4 Good Extension (L3) 4 Good Left Flexion (S2) 4+ Good+ Extension (L3) 4+ Good+ Ankle/Foot Strength Ankle and Foot Manual Muscle Testing Right Dorsiflexion (L4) 4- Good- Plantarflexion (S1) 3+ Fair+ Left Dorsiflexion (L4) 4 Good Plantarflexion (S1) 4 Good PT-OP-O Vestibular Start: 04/15/18 13:19 Freq: Status: Active Protocol: Document 07/02/18 14:30 DCW (Rec: 07/02/18 14:52 DCW [id number]) Vestibular Assessment Positional Testing [place]-Hallpike Negative Left Negative Right PT-OP-Q Treatments Start: 04/15/18 13:19 Freq: Status: Active Protocol: Document 07/02/18 14:30 DCW (Rec: 07/02/18 15:13 DCW [id number]) Gym Equipment Shuttle Recovery Unilateral Heel Raises Resistance 50# Shuttle Recovery Platform Stable Reps/Time x20 - without AFO Unilateral Squats Resistance 62# Shuttle Recovery Platform Unstable Reps/Time x20 - without AFO Bilateral Squats Resistance 100# Shuttle Recovery Platform Unstable Reps/Time x20 - without AFO Manual Therapy Treatment Soft Tissue Mobilization 2 Body Location Right Lumbar paravertebral musculature Mobilization Type Sustained Pressure Intensity/Depth Moderate Body Position Sidelying 1 Body Location Right Quadratus Lumborum Mobilization Type Sustained Pressure Intensity/Depth Moderate Body Position Sidelying Manual Traction Lumbar Details Right LE long-axis traction Body Position Supine Neuro Re-Education Treatment Balance Activities 1 Details DGI, TUG testing PT-OP-T Assessment and Plan Start: 04/15/18 13:19 Freq: Status: Active Protocol: Document 07/02/18 14:30 DCW (Rec: 07/02/18 15:13 DCW [id number]) Physical Therapy Assessment Impairments Impairments Activity Tolerance Balance Gait Strength Tone Vestibular Goals Four Impairment Positive right [place]-Hallpike Short Term Goal (STG) Bilateral [place]-Hallpike negative STG Duration Met Three Impairment LE MMT Fci Goal (LTG) Right LE MMT grossly to 4/5 LTG Duration 09/02/18 - Improving Two Impairment DGI Studio Receptionist Goal (LTG) Pt to score at least 18/23 LTG Duration 09/02/18 - Improving One Impairment Activity Participation Studio Receptionist Goal (LTG) Pt to return to dancing with boyfriend one night a week LTG Duration Met Assessment Summary Assessment Pt displayed improvement with LE strength, as well as an increased DGI score, from to . Pt's TUG is largely unchanged, however her less-than optimal footware may be partially responsible. Pt should continue to benefit from skilled therapy for improvement and maintenance of primary and secondary symptoms of her MS. Physical Therapy Plan Frequency and Duration Frequency of Treatment 2x/Week Duration of Treatment Three months Plan of Care Start Date 07/02/18 Plan of Care End Date 09/30/18 Therapeutic Interventions Therapeutic Interventions Aquatic Therapy Balance Training Canalithic Repositioning Gait Training Home Exercise Program Manual Therapy Soft Tissue Mobilization Therapeutic Activities Therapeutic Exercises Vestibular Rehabilitation Next Visit Focus/Plan Next Note Type Treatment Note Next Visit Plan Continue current POC
--- NOTE | 2018-07-02 15:15 | PT.OPPOC ---
Current Diagnoses Multiple sclerosis (07/02/18) Provider Visit Care Team Role Provider Type Erik Hernandez MD Attending Provider Physician Family Provider Primary Care Provider Specialty: Internal Medicine [address]: [address] [place] [address], [id number] Email: Plan Of Care PT-OP-T Assessment and Plan Start: 04/15/18 13:19 Freq: Status: Active Protocol: Document 07/02/18 14:30 DCW (Rec: 07/02/18 15:13 DCW [id number]) Physical Therapy Assessment Impairments Impairments Activity Tolerance Balance Gait Strength Tone Vestibular Goals Four Impairment Positive right [place]-Hallpike Short Term Goal (STG) Bilateral [place]-Hallpike negative STG Duration Met Three Impairment LE MMT Assisted Goal (LTG) Right LE MMT grossly to 4/5 LTG Duration 09/02/18 - Improving Two Impairment DGI Assisted Goal (LTG) Pt to score at least 18/23 LTG Duration 09/02/18 - Improving One Impairment Activity Participation Quality Technician Goal (LTG) Pt to return to dancing with boyfriend one night a week LTG Duration Met Assessment Summary Assessment Pt displayed improvement with LE strength, as well as an increased DGI score, from to . Pt's TUG is largely unchanged, however her less-than optimal footware may be partially responsible. Pt should continue to benefit from skilled therapy for improvement and maintenance of primary and secondary symptoms of her MS. Physical Therapy Plan Frequency and Duration Frequency of Treatment 2x/Week Duration of Treatment Three months Plan of Care Start Date 07/02/18 Plan of Care End Date 09/30/18 Therapeutic Interventions Therapeutic Interventions Aquatic Therapy Balance Training Canalithic Repositioning Gait Training Home Exercise Program Manual Therapy Soft Tissue Mobilization Therapeutic Activities Therapeutic Exercises Vestibular Rehabilitation Next Visit Focus/Plan Next Note Type Treatment Note Next Visit Plan Continue current POC Plan of Care Dates Plan of Care Start Date 07/02/18 Plan of Care End Date 09/30/18 Please Sign and Return: I have reviewed this Plan of Care and certify that the skilled therapy services above are required to meet the patient?s needs. Physician Signature Date Printed Name and Credentials Clinical Instructor Signature Printed Name and Credentials
--- NOTE | 2018-07-07 11:13 | PT.OTN ---
Current Diagnoses Multiple sclerosis (07/07/18) Physical Therapy Treatment Note PT-OP-A Visit Information Start: 04/15/18 13:19 Freq: Status: Active Protocol: Document 07/07/18 10:30 DCW (Rec: 07/07/18 11:13 DCW [id number]) Out-Patient Physical Therapy Visit Information Visit Information Visit Type Treatment Note Visit Start Time 10:30 Visit Stop Time 11:15 Total Visit Minutes 45 Visit Number 19 Number of LOOM WINDER TENDER Visits 0 Evaluation Information Evaluation Date 04/15/18 PT-OP-B Current Condition Start: 04/15/18 13:19 Freq: Status: Active Protocol: Document 04/15/18 12:10 DCW (Rec: 04/15/18 13:42 DCW [id number]) Current Condition History of Current Condition Onset Date Multi-year history of Multiple Sclerosis Current Complaints Right leg weakness, dizziness, gait difficulty, decreased walking tolerance History of Current Condition Pt is a 67 year old female well known to this clinic returning due to complications secondary to MS, as well as recent complaints of position- dependent vertigo. Pt reports she has been noticing that her right leg has been wasting significantly, and it has impacted her ability to walk, go out dancing, and get in and out of bed. Additionally, she has been experiencing 10-15 second bouts of dizziness when rolling in bed to her right side. Notes that her boyfriend saw my eyes shaking all over the place when I rolled over, so she was taken to the Urgent care clinic and diagnosed with BPPV, and given home exercises and Meclizine. Prior Treatments and Tests Prior history of PT, home treatment for BPPV Treatment Goals Patient/Caregiver Goals Pt wants to get back to walking increased distances without tiring out, return to dancing, and improve her ability to get her right leg in to and out of bed. Prior Functional Status Baseline Function- ADL's Modified Independent Baseline Function- Mobility Modified Independent Baseline Function- Gait Typically uses SPC, wears right AFO Current Functional Impairments (Reported) Functional Limitations- Mobility/Gait Decreased gait tolerance, becomes off-balance with quick head movements. Functional Limitations- Recreation/ Unable to go out dancing Hobbies PT-OP-C Subjective Start: 04/15/18 13:19 Freq: Status: Active Protocol: Document 07/07/18 10:30 DCW (Rec: 07/07/18 11:13 DCW [id number]) OP-PT Subjective Patient Comments Patient Comments Pt reports she is feeling pretty good today. PT-OP-D Balance Start: 04/15/18 13:19 Freq: Status: Active Protocol: Document 07/02/18 14:30 DCW (Rec: 07/02/18 14:52 DCW [id number]) OP-PT Balance Assessment Sitting Balance Static Sitting Balance Ability Normal Dynamic Sitting Balance Ability Normal Standing Balance Static Standing Balance Ability Good Dynamic Standing Balance Ability Fair Posada Fall Scale Copyright Permission Albino JM, Albino RM, Marisabel SJ. Development of a scale to identify the fall- prone patient. Can J Aging 1989;8;366-7. Halima Posada (2009). Preventing patient falls. (2nd ed). [place]: Siddiqi. PT-OP-E Functional Tests Start: 04/15/18 13:19 Freq: Status: Active Protocol: Document 07/02/18 14:30 DCW (Rec: 07/02/18 14:52 DCW [id number]) Functional Tests Dynamic Gait Index (DGI) Score 16/24 DGI Impairment Rating 20 to <40% Impaired (Score 15- 19) Timed Up and Go (TUG) Score 10.61 Comments Three-trial average TUG Impairment Rating 1 to <20% Impaired (Score 11) PT-OP-J Posture/Palpation/Skin Start: 04/15/18 13:42 Freq: Status: Active Protocol: Document 07/02/18 14:30 DCW (Rec: 07/02/18 14:52 DCW [id number]) Palpation Assessment Location Right lower extremity Palpation Details Noticeable atrophy/muscle wasting of right LE, most notably her right calf PT-OP-M Strength Start: 04/15/18 13:42 Freq: Status: Active Protocol: Document 07/02/18 14:30 DCW (Rec: 07/02/18 14:52 DCW [id number]) Hip Strength Hip Manual Muscle Testing Right Flexion (L2) 3+ Fair+ Abduction 4 Good Adduction 4+ Good+ Left Flexion (L2) 4+ Good+ Abduction 4 Good Adduction 4+ Good+ Knee Strength Knee Manual Muscle Testing Right Flexion (S2) 4 Good Extension (L3) 4 Good Left Flexion (S2) 4+ Good+ Extension (L3) 4+ Good+ Ankle/Foot Strength Ankle and Foot Manual Muscle Testing Right Dorsiflexion (L4) 4- Good- Plantarflexion (S1) 3+ Fair+ Left Dorsiflexion (L4) 4 Good Plantarflexion (S1) 4 Good PT-OP-O Vestibular Start: 04/15/18 13:19 Freq: Status: Active Protocol: Document 07/02/18 14:30 DCW (Rec: 07/02/18 14:52 DCW [id number]) Vestibular Assessment Positional Testing [place]-Hallpike Negative Left Negative Right PT-OP-Q Treatments Start: 04/15/18 13:19 Freq: Status: Active Protocol: Document 07/07/18 10:30 DCW (Rec: 07/07/18 11:13 DCW [id number]) Cardio Equipment Recumbent Bicycle Duration (Minutes) 6 Resistance 6 Seat Position 3 Other Without AFO Gym Equipment Shuttle Recovery Unilateral Heel Raises Resistance 50# Shuttle Recovery Platform Stable Reps/Time x20 - without AFO Unilateral Squats Resistance 62# Shuttle Recovery Platform Unstable Reps/Time x20 - without AFO Bilateral Squats Resistance 100# Shuttle Recovery Platform Unstable Reps/Time x20 - without AFO Shuttle Balance 1 Details Red - Wide ARMANDO Comments Wide ARMANDO (Ball Toss), Staggered Stance Therapeutic Exercises Standing Exercises sidestepping Standing Exercise Name Resisted side-stepping Resistance Yellow Equipment Used T-band Manual Therapy Treatment Soft Tissue Mobilization 2 Body Location Right Lumbar paravertebral musculature Mobilization Type Sustained Pressure Intensity/Depth Moderate Body Position Sidelying 1 Body Location Right Quadratus Lumborum Mobilization Type Sustained Pressure Intensity/Depth Moderate Body Position Sidelying Manual Traction Lumbar Details Right LE long-axis traction Body Position Supine PT-OP-T Assessment and Plan Start: 04/15/18 13:19 Freq: Status: Active Protocol: Document 07/07/18 10:30 DCW (Rec: 07/07/18 11:13 DCW [id number]) Physical Therapy Assessment Impairments Impairments Activity Tolerance Balance Gait Strength Tone Vestibular Goals Four Impairment Positive right [place]-Hallpike Short Term Goal (STG) Bilateral Mag[place]-Hallpike negative STG Duration Met Three Impairment LE MMT Associate Of Science In Nursing Goal (LTG) Right LE MMT grossly to 4/5 LTG Duration 09/02/18 - Improving Two Impairment DGI Associate Of Science In Nursing Goal (LTG) Pt to score at least 18 LTG Duration 09/02/18 - Improving One Impairment Activity Participation Penitentiary Goal (LTG) Pt to return to dancing with boyfriend one night a week LTG Duration Met Assessment Summary Assessment Pt doing well today, reports she has been attending chiropractor sessions recently , which she believes has helped her ankle mobility. Physical Therapy Plan Frequency and Duration Frequency of Treatment 2x/Week Duration of Treatment Three months Plan of Care Start Date 07/02/18 Plan of Care End Date 09/30/18 Therapeutic Interventions Therapeutic Interventions Aquatic Therapy Balance Training Canalithic Repositioning Gait Training Home Exercise Program Manual Therapy Soft Tissue Mobilization Therapeutic Activities Therapeutic Exercises Vestibular Rehabilitation Next Visit Focus/Plan Next Note Type Treatment Note Next Visit Plan Continue current POC
--- NOTE | 2018-07-09 11:54 | PT.OTN ---
Current Diagnoses Multiple sclerosis (07/09/18) Physical Therapy Treatment Note PT-OP-A Visit Information Start: 04/15/18 13:19 Freq: Status: Active Protocol: Document 07/09/18 11:15 DCW (Rec: 07/09/18 11:54 DCW [id number]) Out-Patient Physical Therapy Visit Information Visit Information Visit Type Treatment Note Visit Start Time 11:15 Visit Stop Time 12:00 Total Visit Minutes 45 Visit Number 20 Number of SYSTEMS PROGRAM MANAGER Visits 0 Evaluation Information Evaluation Date 04/15/18 PT-OP-B Current Condition Start: 04/15/18 13:19 Freq: Status: Active Protocol: Document 04/15/18 12:10 DCW (Rec: 04/15/18 13:42 DCW [id number]) Current Condition History of Current Condition Onset Date Multi-year history of Multiple Sclerosis Current Complaints Right leg weakness, dizziness, gait difficulty, decreased walking tolerance History of Current Condition Pt is a 67 year old female well known to this clinic returning due to complications secondary to MS, as well as recent complaints of position- dependent vertigo. Pt reports she has been noticing that her right leg has been wasting significantly, and it has impacted her ability to walk, go out dancing, and get in and out of bed. Additionally, she has been experiencing 10-15 second bouts of dizziness when rolling in bed to her right side. Notes that her boyfriend saw my eyes shaking all over the place when I rolled over, so she was taken to the Urgent care clinic and diagnosed with BPPV, and given home exercises and Meclizine. Prior Treatments and Tests Prior history of PT, home treatment for BPPV Treatment Goals Patient/Caregiver Goals Pt wants to get back to walking increased distances without tiring out, return to dancing, and improve her ability to get her right leg in to and out of bed. Prior Functional Status Baseline Function- ADL's Modified Independent Baseline Function- Mobility Modified Independent Baseline Function- Gait Typically uses SPC, wears right AFO Current Functional Impairments (Reported) Functional Limitations- Mobility/Gait Decreased gait tolerance, becomes off-balance with quick head movements. Functional Limitations- Recreation/ Unable to go out dancing Hobbies PT-OP-C Subjective Start: 04/15/18 13:19 Freq: Status: Active Protocol: Document 07/09/18 11:15 DCW (Rec: 07/09/18 11:54 DCW [id number]) OP-PT Subjective Patient Comments Patient Comments Pt doing well today, went to a 30 minute exercise class this morning. PT-OP-D Balance Start: 04/15/18 13:19 Freq: Status: Active Protocol: Document 07/02/18 14:30 DCW (Rec: 07/02/18 14:52 DCW [id number]) OP-PT Balance Assessment Sitting Balance Static Sitting Balance Ability Normal Dynamic Sitting Balance Ability Normal Standing Balance Static Standing Balance Ability Good Dynamic Standing Balance Ability Fair Posada Fall Scale Copyright Permission Albino JM, Albino RM, Marisabel SJ. Development of a scale to identify the fall- prone patient. Can J Aging 1989;8;366-7. Halima Posada (2009). Preventing patient falls. (2nd ed). [place]: Siddiqi. PT-OP-E Functional Tests Start: 04/15/18 13:19 Freq: Status: Active Protocol: Document 07/02/18 14:30 DCW (Rec: 07/02/18 14:52 DCW [id number]) Functional Tests Dynamic Gait Index (DGI) Score 16/24 DGI Impairment Rating 20 to <40% Impaired (Score 15- 19) Timed Up and Go (TUG) Score 10.61 Comments Three-trial average TUG Impairment Rating 1 to <20% Impaired (Score 11) PT-OP-J Posture/Palpation/Skin Start: 04/15/18 13:42 Freq: Status: Active Protocol: Document 07/02/18 14:30 DCW (Rec: 07/02/18 14:52 DCW [id number]) Palpation Assessment Location Right lower extremity Palpation Details Noticeable atrophy/muscle wasting of right LE, most notably her right calf PT-OP-M Strength Start: 04/15/18 13:42 Freq: Status: Active Protocol: Document 07/02/18 14:30 DCW (Rec: 07/02/18 14:52 DCW [id number]) Hip Strength Hip Manual Muscle Testing Right Flexion (L2) 3+ Fair+ Abduction 4 Good Adduction 4+ Good+ Left Flexion (L2) 4+ Good+ Abduction 4 Good Adduction 4+ Good+ Knee Strength Knee Manual Muscle Testing Right Flexion (S2) 4 Good Extension (L3) 4 Good Left Flexion (S2) 4+ Good+ Extension (L3) 4+ Good+ Ankle/Foot Strength Ankle and Foot Manual Muscle Testing Right Dorsiflexion (L4) 4- Good- Plantarflexion (S1) 3+ Fair+ Left Dorsiflexion (L4) 4 Good Plantarflexion (S1) 4 Good PT-OP-O Vestibular Start: 04/15/18 13:19 Freq: Status: Active Protocol: Document 07/02/18 14:30 DCW (Rec: 07/02/18 14:52 DCW [id number]) Vestibular Assessment Positional Testing [place]-Hallpike Negative Left Negative Right PT-OP-Q Treatments Start: 04/15/18 13:19 Freq: Status: Active Protocol: Document 07/09/18 11:15 DCW (Rec: 07/09/18 11:54 DCW [id number]) Cardio Equipment Recumbent Bicycle Duration (Minutes) 6 Resistance 6 Seat Position 3 Other Without AFO Gym Equipment Shuttle Recovery Unilateral Heel Raises Resistance 62# Shuttle Recovery Platform Stable Reps/Time x20 - without AFO Unilateral Squats Resistance 62# Shuttle Recovery Platform Unstable Reps/Time x20 - without AFO Bilateral Squats Resistance 100# Shuttle Recovery Platform Unstable Reps/Time x20 - without AFO Shuttle Balance 1 Details Red - Wide ARMANDO Comments Wide ARMANDO (Perturbations, EO/EC ), Staggered Stance Manual Therapy Treatment Soft Tissue Mobilization 2 Body Location Right Lumbar paravertebral musculature Mobilization Type Sustained Pressure Intensity/Depth Moderate Body Position Sidelying 1 Body Location Right Quadratus Lumborum Mobilization Type Sustained Pressure Intensity/Depth Moderate Body Position Sidelying Manual Traction Lumbar Details Right LE long-axis traction Body Position Supine PT-OP-T Assessment and Plan Start: 04/15/18 13:19 Freq: Status: Active Protocol: Document 07/09/18 11:15 DCW (Rec: 07/09/18 11:54 DCW [id number]) Physical Therapy Assessment Impairments Impairments Activity Tolerance Balance Gait Strength Tone Vestibular Goals Four Impairment Positive right [place]-Hallpike Short Term Goal (STG) Bilateral [place]-Hallpike negative STG Duration Met Three Impairment LE MMT Brand Strategy Manager Goal (LTG) Right LE MMT grossly to 4/5 LTG Duration 09/02/18 - Improving Two Impairment DGI Fpc Goal (LTG) Pt to score at least 18/23 LTG Duration 09/02/18 - Improving One Impairment Activity Participation Fpc Goal (LTG) Pt to return to dancing with boyfriend one night a week LTG Duration Met Assessment Summary Assessment Pt going to [place] tomorrow to discuss getting into a clinical trial [facility]. Physical Therapy Plan Frequency and Duration Frequency of Treatment 2x/Week Duration of Treatment Three months Plan of Care Start Date 07/02/18 Plan of Care End Date 09/30/18 Therapeutic Interventions Therapeutic Interventions Aquatic Therapy Balance Training Canalithic Repositioning Gait Training Home Exercise Program Manual Therapy Soft Tissue Mobilization Therapeutic Activities Therapeutic Exercises Vestibular Rehabilitation Next Visit Focus/Plan Next Note Type Treatment Note Next Visit Plan Continue current POC
--- NOTE | 2018-07-16 14:26 | PT.OTN ---
Current Diagnoses Multiple sclerosis (07/16/18) Physical Therapy Treatment Note PT-OP-A Visit Information Start: 04/15/18 13:19 Freq: Status: Active Protocol: Document 07/16/18 13:45 DCW (Rec: 07/16/18 14:26 DCW [id number]) Out-Patient Physical Therapy Visit Information Visit Information Visit Type Treatment Note Visit Start Time 13:45 Visit Stop Time 14:30 Total Visit Minutes 45 Visit Number 21 Number of MEDICAL INSURANCE VERIFIER Visits 0 Evaluation Information Evaluation Date 04/15/18 PT-OP-B Current Condition Start: 04/15/18 13:19 Freq: Status: Active Protocol: Document 04/15/18 12:10 DCW (Rec: 04/15/18 13:42 DCW [id number]) Current Condition History of Current Condition Onset Date Multi-year history of Multiple Sclerosis Current Complaints Right leg weakness, dizziness, gait difficulty, decreased walking tolerance History of Current Condition Pt is a 67 year old female well known to this clinic returning due to complications secondary to MS, as well as recent complaints of position- dependent vertigo. Pt reports she has been noticing that her right leg has been wasting significantly, and it has impacted her ability to walk, go out dancing, and get in and out of bed. Additionally, she has been experiencing 10-15 second bouts of dizziness when rolling in bed to her right side. Notes that her boyfriend saw my eyes shaking all over the place when I rolled over, so she was taken to the Urgent care clinic and diagnosed with BPPV, and given home exercises and Meclizine. Prior Treatments and Tests Prior history of PT, home treatment for BPPV Treatment Goals Patient/Caregiver Goals Pt wants to get back to walking increased distances without tiring out, return to dancing, and improve her ability to get her right leg in to and out of bed. Prior Functional Status Baseline Function- ADL's Modified Independent Baseline Function- Mobility Modified Independent Baseline Function- Gait Typically uses SPC, wears right AFO Current Functional Impairments (Reported) Functional Limitations- Mobility/Gait Decreased gait tolerance, becomes off-balance with quick head movements. Functional Limitations- Recreation/ Unable to go out dancing Hobbies PT-OP-C Subjective Start: 04/15/18 13:19 Freq: Status: Active Protocol: Document 07/16/18 13:45 DCW (Rec: 07/16/18 14:26 DCW [id number]) OP-PT Subjective Patient Comments Patient Comments Pt reports she is going to transfer her MS care down to the [facility] clinic from her usual PCP in [place]. PT-OP-D Balance Start: 04/15/18 13:19 Freq: Status: Active Protocol: Document 07/02/18 14:30 DCW (Rec: 07/02/18 14:52 DCW [id number]) OP-PT Balance Assessment Sitting Balance Static Sitting Balance Ability Normal Dynamic Sitting Balance Ability Normal Standing Balance Static Standing Balance Ability Good Dynamic Standing Balance Ability Fair Posada Fall Scale Copyright Permission Albino VINSON, Albino RM, Marisabel SJ. Development of a scale to identify the fall- prone patient. Can J Aging 1989;8;366-7. Halima Posada (2009). Preventing patient falls. (2nd ed). [place]: Siddiqi. PT-OP-E Functional Tests Start: 04/15/18 13:19 Freq: Status: Active Protocol: Document 07/02/18 14:30 DCW (Rec: 07/02/18 14:52 DCW [id number]) Functional Tests Dynamic Gait Index (DGI) Score 16/24 DGI Impairment Rating 20 to <40% Impaired (Score 15- 19) Timed Up and Go (TUG) Score 10.61 Comments Three-trial average TUG Impairment Rating 1 to <20% Impaired (Score 11) PT-OP-J Posture/Palpation/Skin Start: 04/15/18 13:42 Freq: Status: Active Protocol: Document 07/02/18 14:30 DCW (Rec: 07/02/18 14:52 DCW [id number]) Palpation Assessment Location Right lower extremity Palpation Details Noticeable atrophy/muscle wasting of right LE, most notably her right calf PT-OP-M Strength Start: 04/15/18 13:42 Freq: Status: Active Protocol: Document 07/02/18 14:30 DCW (Rec: 07/02/18 14:52 DCW [id number]) Hip Strength Hip Manual Muscle Testing Right Flexion (L2) 3+ Fair+ Abduction 4 Good Adduction 4+ Good+ Left Flexion (L2) 4+ Good+ Abduction 4 Good Adduction 4+ Good+ Knee Strength Knee Manual Muscle Testing Right Flexion (S2) 4 Good Extension (L3) 4 Good Left Flexion (S2) 4+ Good+ Extension (L3) 4+ Good+ Ankle/Foot Strength Ankle and Foot Manual Muscle Testing Right Dorsiflexion (L4) 4- Good- Plantarflexion (S1) 3+ Fair+ Left Dorsiflexion (L4) 4 Good Plantarflexion (S1) 4 Good PT-OP-O Vestibular Start: 04/15/18 13:19 Freq: Status: Active Protocol: Document 07/02/18 14:30 DCW (Rec: 07/02/18 14:52 DCW [id number]) Vestibular Assessment Positional Testing [place]-Hallpike Negative Left Negative Right PT-OP-Q Treatments Start: 04/15/18 13:19 Freq: Status: Active Protocol: Document 07/16/18 13:45 DCW (Rec: 07/16/18 14:26 DCW [id number]) Cardio Equipment Recumbent Bicycle Duration (Minutes) 6 Resistance 6 Seat Position 3 Other Without AFO Gym Equipment Shuttle Recovery Unilateral Squats Resistance 62# Shuttle Recovery Platform Unstable Reps/Time x20 - without AFO Bilateral Squats Resistance 100# Shuttle Recovery Platform Unstable Reps/Time x20 - without AFO Shuttle Balance 1 Details Red - Wide ARMANDO Comments Wide ARMANDO (Perturbations, EO/EC ), Staggered Stance /c ball tosss Manual Therapy Treatment Soft Tissue Mobilization 2 Body Location Right Lumbar paravertebral musculature Mobilization Type Sustained Pressure Intensity/Depth Moderate Body Position Sidelying 1 Body Location Right Quadratus Lumborum Mobilization Type Sustained Pressure Intensity/Depth Moderate Body Position Sidelying Manual Traction Lumbar Details Right LE long-axis traction Body Position Supine PT-OP-T Assessment and Plan Start: 04/15/18 13:19 Freq: Status: Active Protocol: Document 07/16/18 13:45 DCW (Rec: 07/16/18 14:26 DCW [id number]) Physical Therapy Assessment Impairments Impairments Activity Tolerance Balance Gait Strength Tone Vestibular Goals Four Impairment Positive right [place]-Hallpike Short Term Goal (STG) Bilateral [place]-Hallpike negative STG Duration Met Three Impairment LE MMT Traffic Rate Computer Goal (LTG) Right LE MMT grossly to 4/5 LTG Duration 09/02/18 - Improving Two Impairment DGI Fpc Goal (LTG) Pt to score at least 18/23 LTG Duration 09/02/18 - Improving One Impairment Activity Participation Fpc Goal (LTG) Pt to return to dancing with boyfriend one night a week LTG Duration Met Assessment Summary Assessment Pt displaying good balance and recovery strategies vs perturbation on Shuttle Balance. Physical Therapy Plan Frequency and Duration Frequency of Treatment 2x/Week Duration of Treatment Three months Plan of Care Start Date 07/02/18 Plan of Care End Date 09/30/18 Therapeutic Interventions Therapeutic Interventions Aquatic Therapy Balance Training Canalithic Repositioning Gait Training Home Exercise Program Manual Therapy Soft Tissue Mobilization Therapeutic Activities Therapeutic Exercises Vestibular Rehabilitation Next Visit Focus/Plan Next Note Type Treatment Note Next Visit Plan Continue current POC
--- NOTE | 2018-07-21 18:00 | PT.OTN ---
Current Diagnoses Multiple sclerosis (07/21/18) Physical Therapy Treatment Note PT-OP-A Visit Information Start: 04/15/18 13:19 Freq: Status: Active Protocol: Document 07/21/18 11:15 DCW (Rec: 07/21/18 17:59 DCW [id number]) Out-Patient Physical Therapy Visit Information Visit Information Visit Type Treatment Note Visit Start Time 11:15 Visit Stop Time 12:00 Total Visit Minutes 45 Visit Number 22 Number of CLINICAL LAB CLERK Visits 0 Evaluation Information Evaluation Date 04/15/18 PT-OP-B Current Condition Start: 04/15/18 13:19 Freq: Status: Active Protocol: Document 04/15/18 12:10 DCW (Rec: 04/15/18 13:42 DCW [id number]) Current Condition History of Current Condition Onset Date Multi-year history of Multiple Sclerosis Current Complaints Right leg weakness, dizziness, gait difficulty, decreased walking tolerance History of Current Condition Pt is a 67 year old female well known to this clinic returning due to complications secondary to MS, as well as recent complaints of position- dependent vertigo. Pt reports she has been noticing that her right leg has been wasting significantly, and it has impacted her ability to walk, go out dancing, and get in and out of bed. Additionally, she has been experiencing 10-15 second bouts of dizziness when rolling in bed to her right side. Notes that her boyfriend saw my eyes shaking all over the place when I rolled over, so she was taken to the Urgent care clinic and diagnosed with BPPV, and given home exercises and Meclizine. Prior Treatments and Tests Prior history of PT, home treatment for BPPV Treatment Goals Patient/Caregiver Goals Pt wants to get back to walking increased distances without tiring out, return to dancing, and improve her ability to get her right leg in to and out of bed. Prior Functional Status Baseline Function- ADL's Modified Independent Baseline Function- Mobility Modified Independent Baseline Function- Gait Typically uses SPC, wears right AFO Current Functional Impairments (Reported) Functional Limitations- Mobility/Gait Decreased gait tolerance, becomes off-balance with quick head movements. Functional Limitations- Recreation/ Unable to go out dancing Hobbies PT-OP-C Subjective Start: 04/15/18 13:19 Freq: Status: Active Protocol: Document 07/21/18 11:15 DCW (Rec: 07/21/18 17:59 DCW [id number]) OP-PT Subjective Patient Comments Patient Comments Pt reports she did not sleep well last night, after he dog was attacked/bitten by something last night, and she was up caring for it most of the night. PT-OP-D Balance Start: 04/15/18 13:19 Freq: Status: Active Protocol: Document 07/02/18 14:30 DCW (Rec: 07/02/18 14:52 DCW [id number]) OP-PT Balance Assessment Sitting Balance Static Sitting Balance Ability Normal Dynamic Sitting Balance Ability Normal Standing Balance Static Standing Balance Ability Good Dynamic Standing Balance Ability Fair Posada Fall Scale Copyright Permission Albino VINSON, Albino RM, Marisabel SJ. Development of a scale to identify the fall- prone patient. Can J Aging 1989;8;366-7. Halima Posada (2009). Preventing patient falls. (2nd ed). [place]: Siddiqi. PT-OP-E Functional Tests Start: 04/15/18 13:19 Freq: Status: Active Protocol: Document 07/02/18 14:30 DCW (Rec: 07/02/18 14:52 DCW [id number]) Functional Tests Dynamic Gait Index (DGI) Score 16/24 DGI Impairment Rating 20 to <40% Impaired (Score 15- 19) Timed Up and Go (TUG) Score 10.61 Comments Three-trial average TUG Impairment Rating 1 to <20% Impaired (Score 11) PT-OP-J Posture/Palpation/Skin Start: 04/15/18 13:42 Freq: Status: Active Protocol: Document 07/02/18 14:30 DCW (Rec: 07/02/18 14:52 DCW [id number]) Palpation Assessment Location Right lower extremity Palpation Details Noticeable atrophy/muscle wasting of right LE, most notably her right calf PT-OP-M Strength Start: 04/15/18 13:42 Freq: Status: Active Protocol: Document 07/02/18 14:30 DCW (Rec: 07/02/18 14:52 DCW [id number]) Hip Strength Hip Manual Muscle Testing Right Flexion (L2) 3+ Fair+ Abduction 4 Good Adduction 4+ Good+ Left Flexion (L2) 4+ Good+ Abduction 4 Good Adduction 4+ Good+ Knee Strength Knee Manual Muscle Testing Right Flexion (S2) 4 Good Extension (L3) 4 Good Left Flexion (S2) 4+ Good+ Extension (L3) 4+ Good+ Ankle/Foot Strength Ankle and Foot Manual Muscle Testing Right Dorsiflexion (L4) 4- Good- Plantarflexion (S1) 3+ Fair+ Left Dorsiflexion (L4) 4 Good Plantarflexion (S1) 4 Good PT-OP-O Vestibular Start: 04/15/18 13:19 Freq: Status: Active Protocol: Document 07/02/18 14:30 DCW (Rec: 07/02/18 14:52 DCW [id number]) Vestibular Assessment Positional Testing [place]-Hallpike Negative Left Negative Right PT-OP-Q Treatments Start: 04/15/18 13:19 Freq: Status: Active Protocol: Document 07/21/18 11:15 DCW (Rec: 07/21/18 17:59 DCW [id number]) Cardio Equipment Recumbent Bicycle Duration (Minutes) 6 Resistance 6 Seat Position 3 Other Without AFO Gym Equipment Shuttle Balance 1 Details Red - Wide ARMANDO Comments Wide ARMANDO (Perturbations, EO/EC ), Staggered Stance /c ball tosss Therapeutic Exercises Standing Exercises Toe Taps Standing Exercise Name Toe-taps on 8 step Side bilateral Resistance 4# Equipment Used 8 step Manual Therapy Treatment Soft Tissue Mobilization 2 Body Location Right Lumbar paravertebral musculature Mobilization Type Sustained Pressure Intensity/Depth Moderate Body Position Sidelying 1 Body Location Right Quadratus Lumborum Mobilization Type Sustained Pressure Intensity/Depth Moderate Body Position Sidelying Manual Traction Lumbar Details Right LE long-axis traction Body Position Supine PT-OP-T Assessment and Plan Start: 04/15/18 13:19 Freq: Status: Active Protocol: Document 07/21/18 11:15 DCW (Rec: 07/21/18 17:59 DCW [id number]) Physical Therapy Assessment Impairments Impairments Activity Tolerance Balance Gait Strength Tone Vestibular Goals Four Impairment Positive right [place]-Hallpike Short Term Goal (STG) Bilateral Magaly-Hallpike negative STG Duration Met Three Impairment LE MMT [place] [employer] Hospitalist Goal (LTG) Right LE MMT grossly to 4/5 LTG Duration 09/02/18 - Improving Two Impairment DGI Custodial Goal (LTG) Pt to score at least 18/23 LTG Duration 09/02/18 - Improving One Impairment Activity Participation [place] [employer] Hospitalist Goal (LTG) Pt to return to dancing with boyfriend one night a week LTG Duration Met Assessment Summary Assessment Pt struggled with toe-taps on 8 step, will likely benefit from continuing to concentrate on improving foot clearance. Physical Therapy Plan Frequency and Duration Frequency of Treatment 2x/Week Duration of Treatment Three months Plan of Care Start Date 07/02/18 Plan of Care End Date 09/30/18 Therapeutic Interventions Therapeutic Interventions Aquatic Therapy Balance Training Canalithic Repositioning Gait Training Home Exercise Program Manual Therapy Soft Tissue Mobilization Therapeutic Activities Therapeutic Exercises Vestibular Rehabilitation Next Visit Focus/Plan Next Note Type Treatment Note Next Visit Plan Continue current POC
--- NOTE | 2018-07-23 14:30 | PT.OTN ---
Current Diagnoses Multiple sclerosis (07/23/18) Physical Therapy Treatment Note PT-OP-A Visit Information Start: 04/15/18 13:19 Freq: Status: Active Protocol: Document 07/23/18 13:45 DCW (Rec: 07/23/18 14:30 DCW [id number]) Out-Patient Physical Therapy Visit Information Visit Information Visit Type Treatment Note Visit Start Time 13:45 Visit Stop Time 14:30 Total Visit Minutes 45 Visit Number 23 Number of SCIENCES DEAN Visits 0 Evaluation Information Evaluation Date 04/15/18 PT-OP-B Current Condition Start: 04/15/18 13:19 Freq: Status: Active Protocol: Document 04/15/18 12:10 DCW (Rec: 04/15/18 13:42 DCW [id number]) Current Condition History of Current Condition Onset Date Multi-year history of Multiple Sclerosis Current Complaints Right leg weakness, dizziness, gait difficulty, decreased walking tolerance History of Current Condition Pt is a 67 year old female well known to this clinic returning due to complications secondary to MS, as well as recent complaints of position- dependent vertigo. Pt reports she has been noticing that her right leg has been wasting significantly, and it has impacted her ability to walk, go out dancing, and get in and out of bed. Additionally, she has been experiencing 10-15 second bouts of dizziness when rolling in bed to her right side. Notes that her boyfriend saw my eyes shaking all over the place when I rolled over, so she was taken to the Urgent care clinic and diagnosed with BPPV, and given home exercises and Meclizine. Prior Treatments and Tests Prior history of PT, home treatment for BPPV Treatment Goals Patient/Caregiver Goals Pt wants to get back to walking increased distances without tiring out, return to dancing, and improve her ability to get her right leg in to and out of bed. Prior Functional Status Baseline Function- ADL's Modified Independent Baseline Function- Mobility Modified Independent Baseline Function- Gait Typically uses SPC, wears right AFO Current Functional Impairments (Reported) Functional Limitations- Mobility/Gait Decreased gait tolerance, becomes off-balance with quick head movements. Functional Limitations- Recreation/ Unable to go out dancing Hobbies PT-OP-C Subjective Start: 04/15/18 13:19 Freq: Status: Active Protocol: Document 07/23/18 13:45 DCW (Rec: 07/23/18 14:30 DCW [id number]) OP-PT Subjective Patient Comments Patient Comments I think I'm having some allergy problems today, but other than that I'm great. PT-OP-D Balance Start: 04/15/18 13:19 Freq: Status: Active Protocol: Document 07/02/18 14:30 DCW (Rec: 07/02/18 14:52 DCW [id number]) OP-PT Balance Assessment Sitting Balance Static Sitting Balance Ability Normal Dynamic Sitting Balance Ability Normal Standing Balance Static Standing Balance Ability Good Dynamic Standing Balance Ability Fair Posada Fall Scale Copyright Permission Albino VINSON, Albino RM, Marisabel SJ. Development of a scale to identify the fall- prone patient. Can J Aging 1989;8;366-7. Halima Posada (2009). Preventing patient falls. (2nd ed). [place]: Siddiqi. PT-OP-E Functional Tests Start: 04/15/18 13:19 Freq: Status: Active Protocol: Document 07/02/18 14:30 DCW (Rec: 07/02/18 14:52 DCW [id number]) Functional Tests Dynamic Gait Index (DGI) Score 16/24 DGI Impairment Rating 20 to <40% Impaired (Score 15- 19) Timed Up and Go (TUG) Score 10.61 Comments Three-trial average TUG Impairment Rating 1 to <20% Impaired (Score 11) PT-OP-J Posture/Palpation/Skin Start: 04/15/18 13:42 Freq: Status: Active Protocol: Document 07/02/18 14:30 DCW (Rec: 07/02/18 14:52 DCW [id number]) Palpation Assessment Location Right lower extremity Palpation Details Noticeable atrophy/muscle wasting of right LE, most notably her right calf PT-OP-M Strength Start: 04/15/18 13:42 Freq: Status: Active Protocol: Document 07/02/18 14:30 DCW (Rec: 07/02/18 14:52 DCW [id number]) Hip Strength Hip Manual Muscle Testing Right Flexion (L2) 3+ Fair+ Abduction 4 Good Adduction 4+ Good+ Left Flexion (L2) 4+ Good+ Abduction 4 Good Adduction 4+ Good+ Knee Strength Knee Manual Muscle Testing Right Flexion (S2) 4 Good Extension (L3) 4 Good Left Flexion (S2) 4+ Good+ Extension (L3) 4+ Good+ Ankle/Foot Strength Ankle and Foot Manual Muscle Testing Right Dorsiflexion (L4) 4- Good- Plantarflexion (S1) 3+ Fair+ Left Dorsiflexion (L4) 4 Good Plantarflexion (S1) 4 Good PT-OP-O Vestibular Start: 04/15/18 13:19 Freq: Status: Active Protocol: Document 07/02/18 14:30 DCW (Rec: 07/02/18 14:52 DCW [id number]) Vestibular Assessment Positional Testing [place]-Hallpike Negative Left Negative Right PT-OP-Q Treatments Start: 04/15/18 13:19 Freq: Status: Active Protocol: Document 07/23/18 13:45 DCW (Rec: 07/23/18 14:30 DCW [id number]) Cardio Equipment Recumbent Bicycle Duration (Minutes) 6 Resistance 6 Seat Position 3 Other Without AFO Gym Equipment Shuttle Balance 1 Details Red - Wide ARMANDO Comments Wide ARMANDO (Perturbations, EO/EC ), Staggered Stance /c ball tosss Therapeutic Exercises Standing Exercises Toe Taps Standing Exercise Name Toe-taps on 8 step Side bilateral Resistance 4# Equipment Used 8 step sidestepping Standing Exercise Name Resisted side-stepping Resistance Yellow Equipment Used T-band Manual Therapy Treatment Soft Tissue Mobilization 2 Body Location Right Lumbar paravertebral musculature Mobilization Type Sustained Pressure Intensity/Depth Moderate Body Position Sidelying 1 Body Location Right Quadratus Lumborum Mobilization Type Sustained Pressure Intensity/Depth Moderate Body Position Sidelying Manual Traction Lumbar Details Right LE long-axis traction Body Position Supine PT-OP-T Assessment and Plan Start: 04/15/18 13:19 Freq: Status: Active Protocol: Document 07/23/18 13:45 DCW (Rec: 07/23/18 14:30 DCW [id number]) Physical Therapy Assessment Impairments Impairments Activity Tolerance Balance Gait Strength Tone Vestibular Goals Four Impairment Positive right [place]-Hallpike Short Term Goal (STG) Bilateral [place]-Hallpike negative STG Duration Met Three Impairment LE MMT Service Engineer Goal (LTG) Right LE MMT grossly to 4/5 LTG Duration 09/02/18 - Improving Two Impairment DGI Group Home Goal (LTG) Pt to score at least 18/23 LTG Duration 09/02/18 - Improving One Impairment Activity Participation Service Engineer Goal (LTG) Pt to return to dancing with boyfriend one night a week LTG Duration Met Assessment Summary Assessment Pt continues to fatigue with toe-tapping, but has been practicing at Physical Therapy Plan Frequency and Duration Frequency of Treatment 2x/Week Duration of Treatment Three months Plan of Care Start Date 07/02/18 Plan of Care End Date 09/30/18 Therapeutic Interventions Therapeutic Interventions Aquatic Therapy Balance Training Canalithic Repositioning Gait Training Home Exercise Program Manual Therapy Soft Tissue Mobilization Therapeutic Activities Therapeutic Exercises Vestibular Rehabilitation Next Visit Focus/Plan Next Note Type Treatment Note Next Visit Plan Continue current POC
--- NOTE | 2018-07-28 12:44 | PT.OTN ---
Current Diagnoses Multiple sclerosis (07/28/18) Physical Therapy Treatment Note PT-OP-A Visit Information Start: 04/15/18 13:19 Freq: Status: Active Protocol: Document 07/28/18 12:00 DCW (Rec: 07/28/18 12:44 DCW [id number]) Out-Patient Physical Therapy Visit Information Visit Information Visit Type Treatment Note Visit Start Time 12:00 Visit Stop Time 12:45 Total Visit Minutes 45 Visit Number 24 Number of CABLE TELEVISION PROGRAM DIRECTOR Visits 0 Evaluation Information Evaluation Date 04/15/18 PT-OP-B Current Condition Start: 04/15/18 13:19 Freq: Status: Active Protocol: Document 04/15/18 12:10 DCW (Rec: 04/15/18 13:42 DCW [id number]) Current Condition History of Current Condition Onset Date Multi-year history of Multiple Sclerosis Current Complaints Right leg weakness, dizziness, gait difficulty, decreased walking tolerance History of Current Condition Pt is a 67 year old female well known to this clinic returning due to complications secondary to MS, as well as recent complaints of position- dependent vertigo. Pt reports she has been noticing that her right leg has been wasting significantly, and it has impacted her ability to walk, go out dancing, and get in and out of bed. Additionally, she has been experiencing 10-15 second bouts of dizziness when rolling in bed to her right side. Notes that her boyfriend saw my eyes shaking all over the place when I rolled over, so she was taken to the Urgent care clinic and diagnosed with BPPV, and given home exercises and Meclizine. Prior Treatments and Tests Prior history of PT, home treatment for BPPV Treatment Goals Patient/Caregiver Goals Pt wants to get back to walking increased distances without tiring out, return to dancing, and improve her ability to get her right leg in to and out of bed. Prior Functional Status Baseline Function- ADL's Modified Independent Baseline Function- Mobility Modified Independent Baseline Function- Gait Typically uses SPC, wears right AFO Current Functional Impairments (Reported) Functional Limitations- Mobility/Gait Decreased gait tolerance, becomes off-balance with quick head movements. Functional Limitations- Recreation/ Unable to go out dancing Hobbies PT-OP-C Subjective Start: 04/15/18 13:19 Freq: Status: Active Protocol: Document 07/28/18 12:00 DCW (Rec: 07/28/18 12:44 DCW [id number]) OP-PT Subjective Patient Comments Patient Comments Pt reports that she is doing well, no current complaints. PT-OP-D Balance Start: 04/15/18 13:19 Freq: Status: Active Protocol: Document 07/02/18 14:30 DCW (Rec: 07/02/18 14:52 DCW [id number]) OP-PT Balance Assessment Sitting Balance Static Sitting Balance Ability Normal Dynamic Sitting Balance Ability Normal Standing Balance Static Standing Balance Ability Good Dynamic Standing Balance Ability Fair Posada Fall Scale Copyright Permission Albino JM, Albino RM, Marisabel SJ. Development of a scale to identify the fall- prone patient. Can J Aging 1989;8;366-7. Halima Posada (2009). Preventing patient falls. (2nd ed). [place]: Siddiqi. PT-OP-E Functional Tests Start: 04/15/18 13:19 Freq: Status: Active Protocol: Document 07/02/18 14:30 DCW (Rec: 07/02/18 14:52 DCW [id number]) Functional Tests Dynamic Gait Index (DGI) Score 16/24 DGI Impairment Rating 20 to <40% Impaired (Score 15- 19) Timed Up and Go (TUG) Score 10.61 Comments Three-trial average TUG Impairment Rating 1 to <20% Impaired (Score 11) PT-OP-J Posture/Palpation/Skin Start: 04/15/18 13:42 Freq: Status: Active Protocol: Document 07/02/18 14:30 DCW (Rec: 07/02/18 14:52 DCW [id number]) Palpation Assessment Location Right lower extremity Palpation Details Noticeable atrophy/muscle wasting of right LE, most notably her right calf PT-OP-M Strength Start: 04/15/18 13:42 Freq: Status: Active Protocol: Document 07/02/18 14:30 DCW (Rec: 07/02/18 14:52 DCW [id number]) Hip Strength Hip Manual Muscle Testing Right Flexion (L2) 3+ Fair+ Abduction 4 Good Adduction 4+ Good+ Left Flexion (L2) 4+ Good+ Abduction 4 Good Adduction 4+ Good+ Knee Strength Knee Manual Muscle Testing Right Flexion (S2) 4 Good Extension (L3) 4 Good Left Flexion (S2) 4+ Good+ Extension (L3) 4+ Good+ Ankle/Foot Strength Ankle and Foot Manual Muscle Testing Right Dorsiflexion (L4) 4- Good- Plantarflexion (S1) 3+ Fair+ Left Dorsiflexion (L4) 4 Good Plantarflexion (S1) 4 Good PT-OP-O Vestibular Start: 04/15/18 13:19 Freq: Status: Active Protocol: Document 07/02/18 14:30 DCW (Rec: 07/02/18 14:52 DCW [id number]) Vestibular Assessment Positional Testing [place]-Hallpike Negative Left Negative Right PT-OP-Q Treatments Start: 04/15/18 13:19 Freq: Status: Active Protocol: Document 07/28/18 12:00 DCW (Rec: 07/28/18 12:44 DCW [id number]) Cardio Equipment Recumbent Bicycle Duration (Minutes) 6 Resistance 6 Seat Position 3 Other Without AFO Gym Equipment Shuttle Recovery Unilateral Squats Resistance 62# Shuttle Recovery Platform Unstable Reps/Time x20 - without AFO Bilateral Squats Resistance 100# Shuttle Recovery Platform Unstable Reps/Time x20 - without AFO Shuttle Balance 1 Details Red - Wide ARMANDO Comments Wide ARMANDO (Perturbations, EO/EC ), Staggered Stance /c ball tosss Manual Therapy Treatment Soft Tissue Mobilization 2 Body Location Right Lumbar paravertebral musculature Mobilization Type Sustained Pressure Intensity/Depth Moderate Body Position Sidelying 1 Body Location Right Quadratus Lumborum Mobilization Type Sustained Pressure Intensity/Depth Moderate Body Position Sidelying Manual Traction Lumbar Details Right LE long-axis traction Body Position Supine PT-OP-T Assessment and Plan Start: 04/15/18 13:19 Freq: Status: Active Protocol: Document 07/28/18 12:00 DCW (Rec: 07/28/18 12:44 DCW [id number]) Physical Therapy Assessment Impairments Impairments Activity Tolerance Balance Gait Strength Tone Vestibular Goals Four Impairment Positive right [place]-Hallpike Short Term Goal (STG) Bilateral [place]-Hallpike negative STG Duration Met Three Impairment LE MMT Lending Consultant Goal (LTG) Right LE MMT grossly to 4/5 LTG Duration 09/02/18 - Improving Two Impairment DGI Halfway Goal (LTG) Pt to score at least 18/23 LTG Duration 09/02/18 - Improving One Impairment Activity Participation Lending Consultant Goal (LTG) Pt to return to dancing with boyfriend one night a week LTG Duration Met Assessment Summary Assessment Pt requested increased force during manual therapy today, she is frustrated at her perceived lack of progress. Physical Therapy Plan Frequency and Duration Frequency of Treatment 2x/Week Duration of Treatment Three months Plan of Care Start Date 07/02/18 Plan of Care End Date 09/30/18 Therapeutic Interventions Therapeutic Interventions Aquatic Therapy Balance Training Canalithic Repositioning Gait Training Home Exercise Program Manual Therapy Soft Tissue Mobilization Therapeutic Activities Therapeutic Exercises Vestibular Rehabilitation Next Visit Focus/Plan Next Note Type Treatment Note Next Visit Plan Continue current POC
--- NOTE | 2018-07-30 14:28 | PT.OTN ---
Current Diagnoses Multiple sclerosis (07/30/18) Physical Therapy Treatment Note PT-OP-A Visit Information Start: 04/15/18 13:19 Freq: Status: Active Protocol: Document 07/30/18 13:45 DCW (Rec: 07/30/18 14:28 DCW [id number]) Out-Patient Physical Therapy Visit Information Visit Information Visit Type Treatment Note Visit Start Time 13:45 Visit Stop Time 14:30 Total Visit Minutes 45 Visit Number 25 Number of RADIAL ARM SAW OPERATOR Visits 0 Evaluation Information Evaluation Date 04/15/18 PT-OP-B Current Condition Start: 04/15/18 13:19 Freq: Status: Active Protocol: Document 04/15/18 12:10 DCW (Rec: 04/15/18 13:42 DCW [id number]) Current Condition History of Current Condition Onset Date Multi-year history of Multiple Sclerosis Current Complaints Right leg weakness, dizziness, gait difficulty, decreased walking tolerance History of Current Condition Pt is a 67 year old female well known to this clinic returning due to complications secondary to MS, as well as recent complaints of position- dependent vertigo. Pt reports she has been noticing that her right leg has been wasting significantly, and it has impacted her ability to walk, go out dancing, and get in and out of bed. Additionally, she has been experiencing 10-15 second bouts of dizziness when rolling in bed to her right side. Notes that her boyfriend saw my eyes shaking all over the place when I rolled over, so she was taken to the Urgent care clinic and diagnosed with BPPV, and given home exercises and Meclizine. Prior Treatments and Tests Prior history of PT, home treatment for BPPV Treatment Goals Patient/Caregiver Goals Pt wants to get back to walking increased distances without tiring out, return to dancing, and improve her ability to get her right leg in to and out of bed. Prior Functional Status Baseline Function- ADL's Modified Independent Baseline Function- Mobility Modified Independent Baseline Function- Gait Typically uses SPC, wears right AFO Current Functional Impairments (Reported) Functional Limitations- Mobility/Gait Decreased gait tolerance, becomes off-balance with quick head movements. Functional Limitations- Recreation/ Unable to go out dancing Hobbies PT-OP-C Subjective Start: 04/15/18 13:19 Freq: Status: Active Protocol: Document 07/30/18 13:45 DCW (Rec: 07/30/18 14:28 DCW [id number]) OP-PT Subjective Patient Comments Patient Comments Pt comes in today reporting she went to see her chiropractor earlier, and by the end she felt like I was walking like a normal person. Pt admits that she can already tell it is worsening, but she is still walking better than she previously had been. PT-OP-D Balance Start: 04/15/18 13:19 Freq: Status: Active Protocol: Document 07/02/18 14:30 DCW (Rec: 07/02/18 14:52 DCW [id number]) OP-PT Balance Assessment Sitting Balance Static Sitting Balance Ability Normal Dynamic Sitting Balance Ability Normal Standing Balance Static Standing Balance Ability Good Dynamic Standing Balance Ability Fair Posada Fall Scale Copyright Permission Albino VINSON, Albino RM, Marisabel SJ. Development of a scale to identify the fall- prone patient. Can J Aging 1989;8;366-7. Halima Posada (2009). Preventing patient falls. (2nd ed). [place]: Siddiqi. PT-OP-E Functional Tests Start: 04/15/18 13:19 Freq: Status: Active Protocol: Document 07/02/18 14:30 DCW (Rec: 07/02/18 14:52 DCW [id number]) Functional Tests Dynamic Gait Index (DGI) Score 16/24 DGI Impairment Rating 20 to <40% Impaired (Score 15- 19) Timed Up and Go (TUG) Score 10.61 Comments Three-trial average TUG Impairment Rating 1 to <20% Impaired (Score 11) PT-OP-J Posture/Palpation/Skin Start: 04/15/18 13:42 Freq: Status: Active Protocol: Document 07/02/18 14:30 DCW (Rec: 07/02/18 14:52 DCW [id number]) Palpation Assessment Location Right lower extremity Palpation Details Noticeable atrophy/muscle wasting of right LE, most notably her right calf PT-OP-M Strength Start: 04/15/18 13:42 Freq: Status: Active Protocol: Document 07/02/18 14:30 DCW (Rec: 07/02/18 14:52 DCW [id number]) Hip Strength Hip Manual Muscle Testing Right Flexion (L2) 3+ Fair+ Abduction 4 Good Adduction 4+ Good+ Left Flexion (L2) 4+ Good+ Abduction 4 Good Adduction 4+ Good+ Knee Strength Knee Manual Muscle Testing Right Flexion (S2) 4 Good Extension (L3) 4 Good Left Flexion (S2) 4+ Good+ Extension (L3) 4+ Good+ Ankle/Foot Strength Ankle and Foot Manual Muscle Testing Right Dorsiflexion (L4) 4- Good- Plantarflexion (S1) 3+ Fair+ Left Dorsiflexion (L4) 4 Good Plantarflexion (S1) 4 Good PT-OP-O Vestibular Start: 04/15/18 13:19 Freq: Status: Active Protocol: Document 07/02/18 14:30 DCW (Rec: 07/02/18 14:52 DCW [id number]) Vestibular Assessment Positional Testing [place]-Hallpike Negative Left Negative Right PT-OP-Q Treatments Start: 04/15/18 13:19 Freq: Status: Active Protocol: Document 07/30/18 13:45 DCW (Rec: 07/30/18 14:28 DCW [id number]) Cardio Equipment Recumbent Bicycle Duration (Minutes) 6 Resistance 6 Seat Position 3 Other Without AFO Gym Equipment Shuttle Recovery Unilateral Squats Details T-band pull R knee medially Resistance 62# Shuttle Recovery Platform Unstable Reps/Time x20 - without AFO Bilateral Squats Details T-band pull R knee medially Resistance 100# Shuttle Recovery Platform Unstable Reps/Time x20 - without AFO Shuttle Balance 1 Details Red - Wide ARMANDO Comments Wide ARMANDO (Perturbations, EO/EC ), Staggered Stance /c ball tosss Therapeutic Exercises Standing Exercises Calf Stretch Standing Exercise Name Gastroc stretch Equipment Used CATHLEEN Manual Therapy Treatment Soft Tissue Mobilization 2 Body Location Right Lumbar paravertebral musculature Mobilization Type Sustained Pressure Intensity/Depth Moderate Body Position Sidelying 1 Body Location Right Quadratus Lumborum Mobilization Type Sustained Pressure Intensity/Depth Moderate Body Position Sidelying Manual Traction Lumbar Details Right LE long-axis traction Body Position Supine PT-OP-T Assessment and Plan Start: 04/15/18 13:19 Freq: Status: Active Protocol: Document 07/30/18 13:45 DCW (Rec: 07/30/18 14:28 DCW [id number]) Physical Therapy Assessment Impairments Impairments Activity Tolerance Balance Gait Strength Tone Vestibular Goals Four Impairment Positive right [place]-Hallpike Short Term Goal (STG) Bilateral [place]-Hallpike negative STG Duration Met Three Impairment LE MMT Penitentiary Goal (LTG) Right LE MMT grossly to 4/5 LTG Duration 09/02/18 - Improving Two Impairment DGI Penitentiary Goal (LTG) Pt to score at least 18/23 LTG Duration 09/02/18 - Improving One Impairment Activity Participation Employee Benefits Specialist Goal (LTG) Pt to return to dancing with boyfriend one night a week LTG Duration Met Assessment Summary Assessment Pt tolerated treatment well today, did display increased paraspinal tone. Physical Therapy Plan Frequency and Duration Frequency of Treatment 2x/Week Duration of Treatment Three months Plan of Care Start Date 07/02/18 Plan of Care End Date 09/30/18 Therapeutic Interventions Therapeutic Interventions Aquatic Therapy Balance Training Canalithic Repositioning Gait Training Home Exercise Program Manual Therapy Soft Tissue Mobilization Therapeutic Activities Therapeutic Exercises Vestibular Rehabilitation Next Visit Focus/Plan Next Note Type Treatment Note Next Visit Plan Continue current POC
--- NOTE | 2018-08-04 11:59 | PT.OTN ---
Current Diagnoses Multiple sclerosis (08/04/18) Physical Therapy Treatment Note PT-OP-A Visit Information Start: 04/15/18 13:19 Freq: Status: Active Protocol: Document 08/04/18 11:15 DCW (Rec: 08/04/18 11:58 DCW [id number]) Out-Patient Physical Therapy Visit Information Visit Information Visit Type Treatment Note Visit Start Time 11:15 Visit Stop Time 12:00 Total Visit Minutes 45 Visit Number 26 Number of DRAFTER ASSISTANT Visits 0 Evaluation Information Evaluation Date 04/15/18 PT-OP-B Current Condition Start: 04/15/18 13:19 Freq: Status: Active Protocol: Document 04/15/18 12:10 DCW (Rec: 04/15/18 13:42 DCW [id number]) Current Condition History of Current Condition Onset Date Multi-year history of Multiple Sclerosis Current Complaints Right leg weakness, dizziness, gait difficulty, decreased walking tolerance History of Current Condition Pt is a 67 year old female well known to this clinic returning due to complications secondary to MS, as well as recent complaints of position- dependent vertigo. Pt reports she has been noticing that her right leg has been wasting significantly, and it has impacted her ability to walk, go out dancing, and get in and out of bed. Additionally, she has been experiencing 10-15 second bouts of dizziness when rolling in bed to her right side. Notes that her boyfriend saw my eyes shaking all over the place when I rolled over, so she was taken to the Urgent care clinic and diagnosed with BPPV, and given home exercises and Meclizine. Prior Treatments and Tests Prior history of PT, home treatment for BPPV Treatment Goals Patient/Caregiver Goals Pt wants to get back to walking increased distances without tiring out, return to dancing, and improve her ability to get her right leg in to and out of bed. Prior Functional Status Baseline Function- ADL's Modified Independent Baseline Function- Mobility Modified Independent Baseline Function- Gait Typically uses SPC, wears right AFO Current Functional Impairments (Reported) Functional Limitations- Mobility/Gait Decreased gait tolerance, becomes off-balance with quick head movements. Functional Limitations- Recreation/ Unable to go out dancing Hobbies PT-OP-C Subjective Start: 04/15/18 13:19 Freq: Status: Active Protocol: Document 08/04/18 11:15 DCW (Rec: 08/04/18 11:58 DCW [id number]) OP-PT Subjective Patient Comments Patient Comments Pt reports she is planning to take a break from PT, and plans to return in the future with a new referral. PT-OP-D Balance Start: 04/15/18 13:19 Freq: Status: Active Protocol: Document 07/02/18 14:30 DCW (Rec: 07/02/18 14:52 DCW [id number]) OP-PT Balance Assessment Sitting Balance Static Sitting Balance Ability Normal Dynamic Sitting Balance Ability Normal Standing Balance Static Standing Balance Ability Good Dynamic Standing Balance Ability Fair Posada Fall Scale Copyright Permission Albino VINSON, Albino RM, Marisabel SJ. Development of a scale to identify the fall- prone patient. Can J Aging 1989;8;366-7. Halima Posada (2009). Preventing patient falls. (2nd ed). [place]: Siddiqi. PT-OP-E Functional Tests Start: 04/15/18 13:19 Freq: Status: Active Protocol: Document 07/02/18 14:30 DCW (Rec: 07/02/18 14:52 DCW [id number]) Functional Tests Dynamic Gait Index (DGI) Score 16/24 DGI Impairment Rating 20 to <40% Impaired (Score 15- 19) Timed Up and Go (TUG) Score 10.61 Comments Three-trial average TUG Impairment Rating 1 to <20% Impaired (Score 11) PT-OP-J Posture/Palpation/Skin Start: 04/15/18 13:42 Freq: Status: Active Protocol: Document 07/02/18 14:30 DCW (Rec: 07/02/18 14:52 DCW [id number]) Palpation Assessment Location Right lower extremity Palpation Details Noticeable atrophy/muscle wasting of right LE, most notably her right calf PT-OP-M Strength Start: 04/15/18 13:42 Freq: Status: Active Protocol: Document 07/02/18 14:30 DCW (Rec: 07/02/18 14:52 DCW [id number]) Hip Strength Hip Manual Muscle Testing Right Flexion (L2) 3+ Fair+ Abduction 4 Good Adduction 4+ Good+ Left Flexion (L2) 4+ Good+ Abduction 4 Good Adduction 4+ Good+ Knee Strength Knee Manual Muscle Testing Right Flexion (S2) 4 Good Extension (L3) 4 Good Left Flexion (S2) 4+ Good+ Extension (L3) 4+ Good+ Ankle/Foot Strength Ankle and Foot Manual Muscle Testing Right Dorsiflexion (L4) 4- Good- Plantarflexion (S1) 3+ Fair+ Left Dorsiflexion (L4) 4 Good Plantarflexion (S1) 4 Good PT-OP-O Vestibular Start: 04/15/18 13:19 Freq: Status: Active Protocol: Document 07/02/18 14:30 DCW (Rec: 07/02/18 14:52 DCW [id number]) Vestibular Assessment Positional Testing [place]-Hallpike Negative Left Negative Right PT-OP-Q Treatments Start: 04/15/18 13:19 Freq: Status: Active Protocol: Document 08/04/18 11:15 DCW (Rec: 08/04/18 11:58 DCW [id number]) Gym Equipment Shuttle Recovery Unilateral Squats Details T-band pull R knee medially Resistance 50# Shuttle Recovery Platform Unstable Reps/Time x20 - without AFO Bilateral Squats Details T-band pull R knee medially Resistance 100# Shuttle Recovery Platform Unstable Reps/Time x20 - without AFO Shuttle Balance 1 Details Red - Wide ARMANDO Comments Wide ARMANDO (Perturbations, EO/EC ), Staggered Stance /c ball tosss Therapeutic Exercises Standing Exercises Hip Hiking Standing Exercise Name L hip hiking Side left Equipment Used 4 step Other Exercises Heel-toe walking Other Exercise Name Fwd Heel-toe Manual Therapy Treatment Soft Tissue Mobilization 2 Body Location Right Lumbar paravertebral musculature Mobilization Type Sustained Pressure Intensity/Depth Moderate Body Position Sidelying 1 Body Location Right Quadratus Lumborum Mobilization Type Sustained Pressure Intensity/Depth Moderate Body Position Sidelying Manual Traction Lumbar Details Right LE long-axis traction Body Position Supine PT-OP-T Assessment and Plan Start: 04/15/18 13:19 Freq: Status: Active Protocol: Document 08/04/18 11:15 DCW (Rec: 08/04/18 11:58 DCW [id number]) Physical Therapy Assessment Impairments Impairments Activity Tolerance Balance Gait Strength Tone Vestibular Goals Four Impairment Positive right [place]-Hallpike Short Term Goal (STG) Bilateral [place]-Hallpike negative STG Duration Met Three Impairment LE MMT Assigner Goal (LTG) Right LE MMT grossly to 4/5 LTG Duration 09/02/18 - Improving Two Impairment DGI Assigner Goal (LTG) Pt to score at least LTG Duration 09/02/18 - Improving One Impairment Activity Participation Assigner Goal (LTG) Pt to return to dancing with boyfriend one night a week LTG Duration Met Assessment Summary Assessment Pt appears to be plateauing near baseline, will discharge following her next visit. Physical Therapy Plan Frequency and Duration Frequency of Treatment 2x/Week Duration of Treatment Three months Plan of Care Start Date 07/02/18 Plan of Care End Date 09/30/18 Therapeutic Interventions Therapeutic Interventions Aquatic Therapy Balance Training Canalithic Repositioning Gait Training Home Exercise Program Manual Therapy Soft Tissue Mobilization Therapeutic Activities Therapeutic Exercises Vestibular Rehabilitation Next Visit Focus/Plan Next Note Type Discharge Summary
--- NOTE | 2018-08-06 14:28 | PT.OTN ---
Current Diagnoses Multiple sclerosis (08/06/18) Physical Therapy Treatment Note PT-OP-A Visit Information Start: 04/15/18 13:19 Freq: Status: Active Protocol: Document 08/06/18 13:45 DCW (Rec: 08/06/18 14:28 DCW [id number]) Out-Patient Physical Therapy Visit Information Visit Information Visit Type Discharge Summary Visit Start Time 13:45 Visit Stop Time 14:30 Total Visit Minutes 45 Visit Number 27 Number of POLICE CHIEF DEPUTY Visits 0 Evaluation Information Evaluation Date 04/15/18 PT-OP-B Current Condition Start: 04/15/18 13:19 Freq: Status: Active Protocol: Document 04/15/18 12:10 DCW (Rec: 04/15/18 13:42 DCW [id number]) Current Condition History of Current Condition Onset Date Multi-year history of Multiple Sclerosis Current Complaints Right leg weakness, dizziness, gait difficulty, decreased walking tolerance History of Current Condition Pt is a 67 year old female well known to this clinic returning due to complications secondary to MS, as well as recent complaints of position- dependent vertigo. Pt reports she has been noticing that her right leg has been wasting significantly, and it has impacted her ability to walk, go out dancing, and get in and out of bed. Additionally, she has been experiencing 10-15 second bouts of dizziness when rolling in bed to her right side. Notes that her boyfriend saw my eyes shaking all over the place when I rolled over, so she was taken to the Urgent care clinic and diagnosed with BPPV, and given home exercises and Meclizine. Prior Treatments and Tests Prior history of PT, home treatment for BPPV Treatment Goals Patient/Caregiver Goals Pt wants to get back to walking increased distances without tiring out, return to dancing, and improve her ability to get her right leg in to and out of bed. Prior Functional Status Baseline Function- ADL's Modified Independent Baseline Function- Mobility Modified Independent Baseline Function- Gait Typically uses SPC, wears right AFO Current Functional Impairments (Reported) Functional Limitations- Mobility/Gait Decreased gait tolerance, becomes off-balance with quick head movements. Functional Limitations- Recreation/ Unable to go out dancing Hobbies PT-OP-C Subjective Start: 04/15/18 13:19 Freq: Status: Active Protocol: Document 08/06/18 13:45 DCW (Rec: 08/06/18 14:28 DCW [id number]) OP-PT Subjective Patient Comments Patient Comments Pt reports she is ready for a break from therapy, but with the progressive nature of MS, knows she'll be back at some point later. PT-OP-D Balance Start: 04/15/18 13:19 Freq: Status: Active Protocol: Document 07/02/18 14:30 DCW (Rec: 07/02/18 14:52 DCW [id number]) OP-PT Balance Assessment Sitting Balance Static Sitting Balance Ability Normal Dynamic Sitting Balance Ability Normal Standing Balance Static Standing Balance Ability Good Dynamic Standing Balance Ability Fair Posada Fall Scale Copyright Permission Albino JM, Albino RM, Marisabel SJ. Development of a scale to identify the fall- prone patient. Can J Aging 1989;8;366-7. Halima Posada (2009). Preventing patient falls. (2nd ed). [place]: Siddiqi. PT-OP-E Functional Tests Start: 04/15/18 13:19 Freq: Status: Active Protocol: Document 08/06/18 13:45 DCW (Rec: 08/06/18 14:01 DCW [id number]) Functional Tests Dynamic Gait Index (DGI) Score 15/24 DGI Impairment Rating 20 to <40% Impaired (Score 15- 19) Timed Up and Go (TUG) Score 10.29 Comments Three-trial average TUG Impairment Rating 1 to <20% Impaired (Score 11) PT-OP-J Posture/Palpation/Skin Start: 04/15/18 13:42 Freq: Status: Active Protocol: Document 08/06/18 13:45 DCW (Rec: 08/06/18 14:01 DCW [id number]) Palpation Assessment Location Right lower extremity Palpation Details Noticeable atrophy/muscle wasting of right LE, most notably her right calf PT-OP-M Strength Start: 04/15/18 13:42 Freq: Status: Active Protocol: Document 08/06/18 13:45 DCW (Rec: 08/06/18 14:01 DCW [id number]) Hip Strength Hip Manual Muscle Testing Right Flexion (L2) 4- Good- Abduction 4 Good Adduction 4+ Good+ Left Flexion (L2) 4+ Good+ Abduction 4 Good Adduction 4+ Good+ Knee Strength Knee Manual Muscle Testing Right Flexion (S2) 4+ Good+ Extension (L3) 4+ Good+ Left Flexion (S2) 5 Normal Extension (L3) 5 Normal Ankle/Foot Strength Ankle and Foot Manual Muscle Testing Right Dorsiflexion (L4) 4- Good- Plantarflexion (S1) 3+ Fair+ Left Dorsiflexion (L4) 4 Good Plantarflexion (S1) 4+ Good+ PT-OP-O Vestibular Start: 04/15/18 13:19 Freq: Status: Active Protocol: Document 08/06/18 13:45 DCW (Rec: 08/06/18 14:01 DCW [id number]) Vestibular Assessment Positional Testing Magaly-Hallpike Negative Left Negative Right PT-OP-Q Treatments Start: 04/15/18 13:19 Freq: Status: Active Protocol: Document 08/06/18 13:45 DCW (Rec: 08/06/18 14:28 DCW [id number]) Gym Equipment Shuttle Balance 1 Details Red - Wide ARMANDO Comments Wide ARMANDO (Perturbations, EO/EC ), Staggered Stance /c ball tosss Manual Therapy Treatment Soft Tissue Mobilization 2 Body Location Right Lumbar paravertebral musculature Mobilization Type Sustained Pressure Intensity/Depth Moderate Body Position Sidelying 1 Body Location Right Quadratus Lumborum Mobilization Type Sustained Pressure Intensity/Depth Moderate Body Position Sidelying Manual Traction Lumbar Details Right LE long-axis traction Body Position Supine Neuro Re-Education Treatment Balance Activities 1 Details DGI, TUG testing PT-OP-T Assessment and Plan Start: 04/15/18 13:19 Freq: Status: Active Protocol: Document 08/06/18 13:45 DCW (Rec: 08/06/18 14:28 DCW [id number]) Physical Therapy Assessment Impairments Impairments Activity Tolerance Balance Gait Strength Tone Vestibular Goals Four Impairment Positive right Magaly-Hallpike Short Term Goal (STG) Bilateral Magaly-Hallpike negative STG Duration Met Three Impairment LE MMT [employer] Coordinator Goal (LTG) Right LE MMT grossly to 4/5 LTG Duration 09/02/18 - Improving Two Impairment DGI Penitentiary Goal (LTG) Pt to score at least 18/23 LTG Duration 09/02/18 - Improving One Impairment Activity Participation Penitentiary Goal (LTG) Pt to return to dancing with boyfriend one night a week LTG Duration Met Assessment Summary Assessment Pt has reached a progress plateau, and would like to take a break from therapy. Pt understands that she will need a new referral in order to return at a later date. Physical Therapy Plan Frequency and Duration Frequency of Treatment 2x/Week Duration of Treatment Three months Plan of Care Start Date 07/02/18 Plan of Care End Date 09/30/18 Therapeutic Interventions Therapeutic Interventions Aquatic Therapy Balance Training Canalithic Repositioning Gait Training Home Exercise Program Manual Therapy Soft Tissue Mobilization Therapeutic Activities Therapeutic Exercises Vestibular Rehabilitation Discharge Physical Therapy Discharge Reasons Plateau in Progress Next Visit Focus/Plan Next Note Type Discharge Summary
== END 2018-08-08 09:22 ==
LOC: PHYS 13:45
PROVIDERS: Family Provider Internal Medicine; PCP Internal Medicine; Visit Provider Internal Medicine
DX: G35 Multiple sclerosis (principal)
CPT/HCPCS: 95992; 97110; 97112; 97140; 97162

== ENCOUNTER → 2018-09-22 12:57 | Oncology outpatient (ONC) | payer MEDICARE, OTHER, SELFPAY ==
[2018-09-22 13:55] LABS: BUN Creatinine Ratio 33.3 (6-22); Blood Urea Nitrogen 20 mg/dL (7-17); Estimated Glomerular Filt Rate > 60.0 mL/min (>60)
[2018-09-22] MEDS: ZOLEDRONIC ACID 5 MG in SODIUM CHLORIDE 0.9% 100 ML 318.75 ML IV (14:16)
== END ==
PROVIDERS: Family Provider Internal Medicine; PCP Internal Medicine; Visit Provider Internal Medicine
DX: M81.0 Age-related osteoporosis without current pathological fracture (principal)
CPT/HCPCS: 36415; 82565; 84520; 96365; J3489

== ENCOUNTER → 2019-06-22 14:44 | Outpatient (CLI) | payer MEDICARE, OTHER, SELFPAY | PROVIDERS: Family Provider Internal Medicine; PCP Internal Medicine; Visit Provider Internal Medicine | DX: M81.0 Age-related osteoporosis without current pathological fracture (principal); Z78.0 Asymptomatic menopausal state; Z82.62 Family history of osteoporosis; Z87.891 Personal history of nicotine dependence | CPT/HCPCS: 77080 ==

== ENCOUNTER → 2019-07-04 12:46 | Outpatient (CLI) | payer MEDICARE, OTHER, SELFPAY ==
--- NOTE | 2019-07-04 | DI.MG.S_ITS ---
BILATERAL DIGITAL SCREENING MAMMOGRAM 3D/2D WITH CAD WITH AUGMENTATION: 07/04/2019 CLINICAL: Routine screening. Family history of breast cancer. Comparison is made to exams dated: 12/23/2017 mammogram, 11/01/2016 mammogram, and 08/30/2015 mammogram - [facility]. The tissue of both breasts is heterogeneously dense. This may lower the sensitivity of mammography. Current study was also evaluated with a Computer Aided Detection (CAD) system. Bilateral breast implants are present. No significant masses, calcifications, or other findings are seen in either breast. There has been no significant interval change. IMPRESSION: NEGATIVE There is no mammographic evidence of malignancy. A 1 year screening mammogram is recommended. This exam was interpreted at Station ID: [id number]. NOTE: For mammograms, a report in lay terms will be sent to the patient. Approximately 15% of breast malignancies will not be visualized mammographically. In the management of a palpable breast mass, a negative mammogram must not discourage biopsy of a clinically suspicious lesion. Electronically Signed By: Gaurav araujo/belinda:07/07/2019 16:24:18 letter sent: Normal Exam ACR BI-RADS Category 1: Negative [id number]
== END ==
PROVIDERS: PCP Internal Medicine; Visit Provider Internal Medicine
DX: Z12.31 Encounter for screening mammogram for malignant neoplasm of breast (principal); Z80.3 Family history of malignant neoplasm of breast
CPT/HCPCS: 77063; 77067

== ENCOUNTER → 2019-08-24 10:44 | Outpatient (CLI) | payer MEDICARE, OTHER, SELFPAY ==
--- NOTE | 2019-08-24 | DI.RAD.S_ITS ---
PROCEDURE: XR HIP W PEL IF DONE LT MIN 4V INDICATIONS: GENERALIED OSTEO ARTHRITIS TECHNIQUE: AP pelvis with lateral view(s) of the right and left hip(s). COMPARISON: None. FINDINGS: Bones: No fractures or dislocations. Surgical staple line projecting and pelvis appear lower lumbar spondylosis. Mild bilateral hip degeneration. Pelvic ring appears intact. No suspicious bony lesions. Soft tissues: The visualized bowel gas pattern is normal. No suspicious soft tissue calcifications. IMPRESSION: Mild bilateral hip joint degeneration Lower lumbar spondylosis and facet arthropathy At the Dictated by: Edison Barrios M.D. on 08/24/2019 at 14:49 Approved by: Edison Barrios M.D. on 08/24/2019 at 14:54
== END ==
PROVIDERS: PCP Internal Medicine; Referring Provider Internal Medicine; Visit Provider Internal Medicine
DX: M16.0 Bilateral primary osteoarthritis of hip (principal); M47.816 Spondylosis without myelopathy or radiculopathy, lumbar region
CPT/HCPCS: 73522

== ENCOUNTER 2019-09-14 11:22 | Emergency (ER) | payer MEDICARE, OTHER, SELFPAY ==
[2019-09-14 11:27] VITALS: BP 137/65; PULSE 70; RESP 16; TEMP 36.7; O2SAT 99
--- NOTE | 2019-09-14 11:31 | DI.RAD.S_ITS ---
PROCEDURE: XR SACRUM COCCYX MIN 2V INDICATIONS: fall, spasm TECHNIQUE: 3 views of the sacrum and coccyx acquired. COMPARISON: None. FINDINGS: Bones: No fractures or dislocations, but quality of visualization on the frontal projection is very limited due to overlying stool and bowel gas. On the lateral view there is no clearly visualized fracture but frequently the presence of a sacrococcygeal region fracture is only diagnosed by MR scanning. No suspicious bony lesions. Soft tissues: Visualized bowel gas pattern is normal. No suspicious soft tissue densities. IMPRESSION: No definite fracture but the study is very limited as discussed. MR scanning provides the most accurate assessment for presence or absence of fracture. The frontal views, 2 of which were obtained, essentially do not allow visualization of the sacrococcygeal region in the lateral view has overlap of segmentation and neural ostium margins to the degree that a definite fracture cannot be identified. Dictated by: Reagan Beckford M.D. on 09/14/2019 at 12:52 Approved by: Reagan Beckford M.D. on 09/14/2019 at 12:55
--- NOTE | 2019-09-14 13:20 | ED.FALL ---
HPI - Fall <Sebastián AKIRA Wilkerson - Last Filed: 09/15/19 00:44> General Chief Complaint: Fall Stated Complaint: Low back spasm,fell a week ago Time Seen by Provider: 09/14/19 12:16 Source: patient Mode of arrival: Wheelchair Limitations: no limitations History of Present Illness HPI Narrative: This is a 69-year-old female who presents to ED with discomfort in sacrum area with severe spasming. Patient reports she initially fell on her buttock after she slipped on a tile floor about a week ago. Patient denies chest pain, breathing difficulty or dizziness prior to fall and she said she slipped and fall. Patient denies injuring her head at this time. Initially she felt super sore on the sacrum area but it had improved after a few days. She resumed her usual activities with [employer] [facility] exercise program at [facility]. She even went for a ride on a motorcycle with her significant other 2 days ago and had an intercourse than night since then the pain has recurred and worst during last night and this morning. Patient has history of MS and usually she has spasticity on anterior bilateral legs. Patient uses a cane for ambulation. Patient reports she was ambulatory this morning and denies saddle anesthesia. Denies increasing weakness to her lower extremities. Patient reports he had improves her discomfort. Patient denies stool or urinary incontinence but she was not able to make it to the bathroom in time to void. Related Data Home Medications Medication Instructions Recorded Confirmed Vitamin D3 1 cap PO DAILY 09/14/19 09/14/19 baclofen 20 mg PO TID 09/14/19 09/14/19 gabapentin 09/14/19 gabapentin 300 mg PO DAILY 09/14/19 09/14/19 solifenacin 10 mg PO DAILY 09/14/19 09/14/19 venlafaxine [Effexor XR] 75 mg PO DAILY 09/14/19 09/14/19 Previous Rx's Medication Instructions Recorded cyclobenzaprine 5 - 10 mg PO BID PRN #10 tab 09/14/19 lidocaine 1 patch TOP Q24H #30 each 09/14/19 tramadol 50 mg PO BID PRN #10 tab 09/14/19 Allergies Allergy/AdvReac Type Severity Reaction Status Date / Time amoxicillin [From Augmentin] Allergy Severe ANAPHYLAXIS Verified 03/15/18 13:30 clavulanic acid Allergy Severe ANAPHYLAXIS Verified 03/15/18 13:30 [From Augmentin] codeine AdvReac Mild CONSTIPATIO Verified 03/15/18 13:30 N Review of Systems <AKIRA Dykes - Last Filed: 09/15/19 00:44> Review of Systems Narrative: General: Denies fever, chills, fatigue, malaise, sweats. HEENT: Denies sinus pain, ear pain, sore throat, difficulty swallowing, dizziness. Respiratory: Denies dyspnea, cough, wheezing, hemoptysis, sputum. Cardiovascular: Denies chest pain, palpitations, orthopnea, edema. Gastrointestinal: Denies nausea, vomiting, abdominal pain, diarrhea, constipation, melena. : Denies dysuria, frequency, incontinence, hematuria, urinary retention. Musculoskeletal: See HPI Skin: Denies rash, skin lesions, or other. Neurologic: Denies weakness, headache, numbness, change in speech, confusion, seizures, incoordination. Psychiatric: No concerning psychosocial issues. 12-point review of systems is negative except for those stated above. Patient History <AKIRA Dykes - Last Filed: 09/15/19 00:44> Medical History Multiple sclerosis (Acute) Social History Smoking Status: Never smoker Smoking Status: Never smoker Substance Use Type: does not use Exam <AKIRA Dykes - Last Filed: 09/15/19 00:44> Narrative Exam Narrative: GEN: Alert, oriented x 3, well appearing and nourished, and in no acute distress and she is resting in supine with bilateral knees bent. Head: Normal cephalic, atraumatic. No scalp or temporal tenderness, palpable mass or rash. EYES: Pupils are equal, round, and reactive to light and accommodation. Extraocular muscles are intact bilaterally. There is no subconjunctival hemorrhage, exudate and sclera non-icteric. ENT: Hearing grossly intact. Nose without bleeding, purulent discharge or deviation. Mucous membrane moist, no mucosal lesion. Throat without erythema, tonsillar hypertrophy or exudate. Uvula in midline, airway patent. Neck: Trachea in midline. No JVD, non-tender without lymphadenopathy. No masses or thyroid megaly. Supple, non-tender and no meningeal signs. CARDIAC: Normal regular rate and rhythm without murmurs, gallops, or rubs. No chest wall tenderness. No peripheral edema, cyanosis or pallor. Capillary refill is less than 2 seconds. RESPIRATORY: Lungs are clear to auscultate bilaterally. No cough, wheezes, rales, or rhonchi. No stridor, respiratory distress, increase work of breathing, or accessary muscle used. ABD: Abdomen soft, nontender and non-distended. No guarding or rebound tenderness to palpate. Bowel sounds are normal in all 4 quadrants. There is no palpable masses or organomegaly. SKIN: Warm, dry, normal color for patient. No erythema, lesions or rash over visible areas. NEUROLOGICAL: Alert and oriented to place, time and person. Sensation and motor function intact bilaterally. No facial droops, dysphasia. PSYCHIATRIC: Good judgement and reason, without hallucinations, abnormal affect or abnormal behaviors during the examination. Initial Vital Signs Initial Vital Signs: Vital Signs Temperature 98.1 F 09/14/19 11:27 Pulse Rate 70 09/14/19 11:27 Respiratory Rate 16 09/14/19 11:27 Blood Pressure 137/65 09/14/19 11:27 Pulse Oximetry 99 09/14/19 11:27 Back/Spine/Pelvis Back: normal to inspection Thoracic/Lumbar Spine: thoracic and lumbar spine normal to inspection, No surgical scar(s) present, straight leg raise negative bilaterally, No paraspinal tenderness, thoraco-lumbar spasm, No thoracic spinal tenderness and No lumbar spinal tenderness Sacroiliac Joints: nontender Sacrum: no ecchymosis, no erythema, no swelling and tenderness midline Extrem General: normal to inspection Right lower extremity: normal to inspection Left lower extremity: normal to inspection Other: + patella tendon reflex in Right knee 2/4, Left knee 1/4, strength slightly decreased on right lower extremity with plantar flexion and dorsal extension and reports which is normal for patient. <Ana M Spears MD - Last Filed: 09/15/19 08:07> Initial Vital Signs Initial Vital Signs: Vital Signs Temperature 98.1 F 09/14/19 11:27 Pulse Rate 70 09/14/19 11:27 Respiratory Rate 16 09/14/19 11:27 Blood Pressure 137/65 09/14/19 11:27 Pulse Oximetry 99 09/14/19 11:27 Scores <[facility] AKIRA Wilkerson - Last Filed: 09/15/19 00:44> GCS Al coma scale eye opening: Spontaneous Al coma scale verbal response: Orientated [place] coma scale motor response: Obey commands [place]ord coma scale total score: 15 Course [facility] - Last Filed: 09/15/19 00:44> Orders Ordered: Discontinued Medications Cyclobenzaprine HCl (Flexeril) 10 mg PO NOW ONE Stop: 09/14/19 13:11 Last Admin: 09/14/19 14:23 Dose: 10 mg Documented by: ARACELI Lidocaine (Lidoderm) 1 each TOP NOW ONE Stop: 09/14/19 13:11 Last Admin: 09/14/19 14:23 Dose: 1 each Documented by: ARACELI Tramadol HCl (Ultram) 50 mg PO NOW ONE Stop: 09/14/19 13:38 Last Admin: 09/14/19 14:23 Dose: 50 mg Documented by: ARACELI Vital Signs Vital signs: Vital Signs - 8 hr 09/14/19 11:27 Temperature 98.1 F Pulse Rate 70 Respiratory Rate 16 Blood Pressure 137/65 Pulse Oximetry 99 <Ana M Spears MD - Last Filed: 09/15/19 08:07> Orders Ordered: Discontinued Medications Cyclobenzaprine HCl (Flexeril) 10 mg PO NOW ONE Stop: 09/14/19 13:11 Last Admin: 09/14/19 14:23 Dose: 10 mg Documented by: ARACELI Lidocaine (Lidoderm) 1 each TOP NOW ONE Stop: 09/14/19 13:11 Last Admin: 09/14/19 14:23 Dose: 1 each Documented by: ARACELI Tramadol HCl (Ultram) 50 mg PO NOW ONE Stop: 09/14/19 13:38 Last Admin: 09/14/19 14:23 Dose: 50 mg Documented by: ARACELI Vital Signs Vital signs: Vital Signs - 8 hr 09/14/19 11:27 Temperature 98.1 F Pulse Rate 70 Respiratory Rate 16 Blood Pressure 137/65 Pulse Oximetry 99 MDM - Fall <[facility] AKIRA Wilkerson - Last Filed: 09/15/19 00:44> Differential Diagnosis Differential diagnosis: Likely other (Sacral fracture, sacral contusion, low back pain, sciatica) Medical Records Attestation: I reviewed the patient's medical records. Imaging Data XR- Sacrum: Radiologist's Impression: [address] [address] XRay Report Signed Patient: Verenice Pete LMR#: [id number] : 8Acct:[id number] Age/Sex: 69 / FDate of Service: 09/14/19 Loc: ED Accession Number: [id number] Procedure: XR sacrum coccyx min 2V Ordering Provider: Ana M Spears MD PROCEDURE: XR SACRUM COCCYX MIN 2V INDICATIONS: fall, spasm TECHNIQUE: 3 views of the sacrum and coccyx acquired. COMPARISON: None. FINDINGS: Bones: No fractures or dislocations, but quality of visualization on the frontal projection is very limited due to overlying stool and bowel gas. On the lateral view there is no clearly visualized fracture but frequently the presence of a sacrococcygeal region fracture is only diagnosed by MR scanning. No suspicious bony lesions. Soft tissues: Visualized bowel gas pattern is normal. No suspicious soft tissue densities. IMPRESSION: No definite fracture but the study is very limited as discussed. MR scanning provides the most accurate assessment for presence or absence of fracture. The frontal views, 2 of which were obtained, essentially do not allow visualization of the sacrococcygeal region in the lateral view has overlap of segmentation and neural ostium margins to the degree that a definite fracture cannot be identified. Dictated by: Reagan Beckford M.D. on 09/14/2019 at 12:52 Approved by: Reagan Beckford M.D. on 09/14/2019 at 12:55 [facility] Narrative Medical decision making narrative: This is a 69-year-old female who presents to ED with chief complain of sacrum/coccyx discomfort radiating down to bilateral foot without saddle anesthesia, incontinence, increased weakness to her extremities from her baseline. Patient had slipped and fall and landed on her coccyx about a week ago today. She has been feeling better after a couple of days and returned to her usual physical activities before she has recurring discomfort. Sacrum and coccyx x-ray test does not show definite fracture or dislocation. Patient was medicated with Flexeril for spasming discomfort and lidocaine patch pain management. Patient has taken Baclofen without much improvement in pain. Patient advised to continue with NAIDS and Tylenol and to take Flexeril for muscle spasm as needed and Lidocaine patch as needed for pain. The patient also discharged to home with few tabs of tramadol for severe pain. Narcotic and muscle relaxant medication precautions were discussed with the patient. Patient advised to follow-up with PCP for additional imaging tests if pain persists. Return precautions were discussed with the patient and patient verbalized understanding and agreement with treatment plan. Discharge Plan Departure Patient Disposition: Home Clinical Impression: Sciatica Qualifiers: Laterality: bilateral Qualified Code(s): M54.31 - Sciatica, right side Discharge Date/Time: 09/14/19 14:53 Instructions: DI for Sciatica, How to Prevent Falls Activity Restrictions/Additional Instructions: You have been diagnosed with [tailbone pain radiating to bilateral legs with spasming pain]. What to do: *Take your medications as directed. Please continue to take baclofen and Tylenol as needed for discomfort. If pain is not managed with this medications, you can take lidocaine patch which stays on for 12 hours and off for 12 hours. You can add Flexeril for muscle spasming pain. You can take up to 2 to 3 times a day as needed. If you continue to have severe pain after these medication have used, you can add tramadol. Flexeril and tramadol could cause drowsiness so please take precautions such as driving, drinking alcohol or operating heavy equipments. These medication have been transmitted to [facility]. *Follow up with your primary care provider in 2-3 days, call for an appointment. Let them know you were seen in the ED and that we asked you to be seen in follow up. *Return to ED if you have any new, worsening, or concerning symptoms, such as [numbness to groin, incontinence for stool or urine, chest pain, breathing difficulty, increasing leg weakness from her baseline or any acute concerns]. Prescriptions: New lidocaine 5 % adhesive patch,medicated 1 patch TOP Q24H Qty: 30 RF: 0 cyclobenzaprine 10 mg tablet 5 - 10 mg PO BID PRN (Reason: muscle spasm) Qty: 10 RF: 0 tramadol 50 mg tablet 50 mg PO BID PRN (Reason: pain) Qty: 10 RF: 0 No Action gabapentin 600 mg tablet RF: 0 venlafaxine [Effexor XR] 75 mg Capsule,Extended Release 24hr 75 mg PO DAILY RF: 0 baclofen 20 mg Tablet 20 mg PO TID RF: 0 gabapentin 300 mg Capsule 300 mg PO DAILY RF: 0 solifenacin 10 mg Tablet 10 mg PO DAILY RF: 0 Vitamin D3 1 cap PO DAILY RF: 0 Referrals: Erik Hernandez MD [Primary Care Provider] -
[2019-09-14] MEDS: CYCLOBENZAPRINE 10 MG TABLET PO (14:23)
[2019-09-14] MEDS: TRAMADOL 50 MG TABLET PO (14:23)
[2019-09-14] MEDS: LIDOCAINE PATCH 1 EACH ADH..PATCH TOP (14:23)
== END 2019-09-14 14:53 | disposition home or self-care (01) ==
PROVIDERS: Emergency Provider Nurse Practitioner Family; PCP Internal Medicine
DX: M54.31 Sciatica, right side (principal); W19.XXXA Unspecified fall, initial encounter
CPT/HCPCS: 72220; 99283

== ENCOUNTER → 2020-02-20 08:21 | Outpatient (CLI) | payer MEDICARE, OTHER, SELFPAY ==
[2020-02-20 09:53] LABS: Add Manual Diff / Slide Review NO; Basophils Absolute Auto 100 /uL (0-100); Basophils Percent Auto 0.9 % (0-2); Eosinophils Absolute Auto 200 /uL (0-450); Eosinophils Percent Auto 2.9 % (2-4); Hematocrit 38.6 % (36-46); Hemoglobin 12.9 g/dL (12.0-16.0); Lymphocytes Absolute Auto 3400 /uL (1100-4500); Lymphocytes Percent Auto 44.9 % (25-40); Mean Corpuscular HGB Conc 33.5 % (30-36); Mean Corpuscular Hemoglobin 33.4 PG (26-34); Mean Corpuscular Volume 99.9 fL (80-100); Monocytes Absolute Auto 600 /uL (0-900); Monocytes Percent Auto 7.7 % (3-14); Neutrophils Absolute Auto 3300 /uL (1500-7000); Neutrophils Percent Auto 43.6 % (50-75); Platelet Count 238 X10^3/uL (150-400); Red Blood Cell Count 3.86 X10^6/uL (4.0-5.2); Red Cell Distribution Width 13.8 % (11.6-14.8); White Blood Cell Count 7.5 X10^3/uL (4.5-11.0)
[2020-02-20 10:10] LABS: Alanine Aminotransferase 20 IU/L (<35); Albumin 4.1 g/dL (3.5-5.0); Albumin Globulin Ratio 1.6 (1.0-2.8); Alkaline Phosphatase 44 U/L (38-126); Aspartate Aminotransferase 25 IU/L (14-36); BUN Creatinine Ratio 27.5 (6-22); Bilirubin Total 0.4 mg/dL (0.2-1.3); Blood Urea Nitrogen 19 mg/dL (7-17); Calcium 9.3 mg/dL (8.4-10.2); Carbon Dioxide 33 mmol/L (22-32); Chloride 99 mmol/L (98-107); Estimated Glomerular Filt Rate > 60.0 mL/min (>60); Globulin 2.6 g/dL (1.7-4.1); Glucose 87 mg/dL (80-110); HEMOLYSIS < 15 (0-50); Sodium 135 mmol/L (137-145); Total Protein 6.7 g/dL (6.3-8.2)
== END ==
PROVIDERS: PCP Internal Medicine; Referring Provider Psychiatry & Neurology Neurology; Visit Provider Psychiatry & Neurology Neurology
DX: G24.9 Dystonia, unspecified (principal); R25.9 Unspecified abnormal involuntary movements; R29.898 Other symptoms and signs involving the musculoskeletal system; G35 Multiple sclerosis; R25.2 Cramp and spasm
CPT/HCPCS: 36415; 80053; 85025

== ENCOUNTER → 2020-08-24 11:00 | Outpatient (CLI) | payer MEDICARE, OTHER, SELFPAY | PROVIDERS: PCP Internal Medicine; Visit Provider Physician Assistant | DX: R30.9 Painful micturition, unspecified (principal) | CPT/HCPCS: 87086 ==

== ENCOUNTER → 2020-11-30 07:20 | Outpatient (CLI) | payer SELFPAY | PROVIDERS: PCP Internal Medicine; Referring Provider Chiropractor; Visit Provider Chiropractor | DX: Z13.9 Encounter for screening, unspecified (principal) | CPT/HCPCS: 36415; 99001 ==

== ENCOUNTER → 2020-12-13 10:49 | Outpatient (CLI) | payer MEDICARE, OTHER, SELFPAY ==
--- NOTE | 2020-12-13 | DI.MG.S_ITS ---
BILATERAL DIGITAL SCREENING MAMMOGRAM 3D/2D WITH CAD WITH AUGMENTATION: 12/13/2020 CLINICAL: Routine screening. Family history of breast cancer. Comparison is made to exams dated: 07/04/2019 mammogram, 12/23/2017 mammogram, and 11/01/2016 mammogram - [facility]. The tissue of both breasts is heterogeneously dense. This may lower the sensitivity of mammography. Current study was also evaluated with a Computer Aided Detection (CAD) system. Bilateral breast implants are present. No significant masses, calcifications, or other findings are seen in either breast. There has been no significant interval change. IMPRESSION: NEGATIVE There is no mammographic evidence of malignancy. A 1 year screening mammogram is recommended. This exam was interpreted at Station ID: [id number]. NOTE: For mammograms, a report in lay terms will be sent to the patient. Approximately 15% of breast malignancies will not be visualized mammographically. In the management of a palpable breast mass, a negative mammogram must not discourage biopsy of a clinically suspicious lesion. Electronically Signed By: Tre gastelum/belinda:12/13/2020 11:20:26 letter sent: Normal Exam ACR BI-RADS Category 1: Negative [id number]
== END ==
PROVIDERS: PCP Internal Medicine; Referring Provider Internal Medicine; Visit Provider Internal Medicine
DX: Z12.31 Encounter for screening mammogram for malignant neoplasm of breast (principal); Z80.3 Family history of malignant neoplasm of breast
CPT/HCPCS: 77063; 77067

== ENCOUNTER 2021-11-16 12:15 | Outpatient (RCR) | payer MEDICARE, OTHER, SELFPAY ==
--- NOTE | 2021-05-25 16:46 | PT.OIE ---
Current Diagnoses Major depressive disorder, single episode, in full remission (05/25/21) Multiple sclerosis (05/25/21) Muscle weakness (generalized) (05/25/21) Age-related osteoporosis without current pathological fracture (05/25/21) Unspecified abnormalities of gait and mobility (05/25/21) Dizziness and giddiness (05/25/21) Past Medical History (Last Reviewed 09/14/19 @ 13:25 by AKIRA Dykes) Multiple sclerosis Visit Care Team Role Provider Type Erik Hernandez MD Attending Provider Physician Family Provider Primary Care Provider Referring Provider Specialty: Internal Medicine Address: [address] [place] [address], [facility] Email: [email or web address] Physical Therapy Initial Evaluation PT-OP-A Visit Information Start: 05/23/21 18:50 Freq: Status: Active Protocol: Document 05/25/21 11:23 LRN (Rec: 05/25/21 12:06 LRN [id number]) Out-Patient Physical Therapy Visit Information Visit Information Visit Type Initial Evaluation Visit Start Time 11:23 Visit Stop Time 12:03 Total Visit Minutes 40 Visit Number 1 Evaluation Information Evaluation Date 05/25/21 Precautions Precautions Catches self after LOB 2x/day when R foot catches the ground , Multiple Sclerosis, Osteoporosis, Dizziness, back pain. R handed. Has life alerts, PT-OP-B Current Condition Start: 05/23/21 18:50 Freq: Status: Active Protocol: Document 05/25/21 11:23 LRN (Rec: 05/25/21 12:06 LRN [id number]) Current Condition History of Current Condition Onset Date 17 yrs ago. Current Complaints Progressive weakness of RLE, since dx'd with MS; spasticity of lisbet LE R>L History of Current Condition Pt reports R foot drop and LE weakness due to MS with R foot dragging for past 10-15 yrs. Has had MS since ~1971, started with numb patches in the legs and clumsy. She has had an AFO for the R ankle foot for 5 yrs ago and wears it intermittently because she can only wear it with one pair of shoes. Pt did not wear the AFO today. States her primary care physician sent her to PT at her request due to having had PT several years ago with Rojel[facility] Slaughter PT. Neurologist, Natalya Stewrat is planning on having her fit for another AFO on R LE that will help her to move the R LE (keep the foot straight and help to raise the foot). Pt reports she sometimes gets dizzy causing LOB without falls. Daughter calls her daily. Prior Treatments and Tests Sees chiropractor every other week. Future Testing and Treatments Planned Fit for RLE brace/AFO; company to contact her within 2-3 weeks. Treatment Goals Patient/Caregiver Goals Pt goal is to work on: *Balance, less LOB (no loss of balance), *Gait, legs not as tired at the end of the day, take longer walks with dog (walking to end of block) *Strengthen R LE to improve ability to lift self into bed at end of day, pushing withGait R leg. Prior Functional Status Baseline Function- Gait Gait with cane. Current Functional Impairments (Reported) Functional Limitations- ADL's Difficulty getting into bed at end of day. Functional Limitations- Mobility/Gait Walks 1/2 way to end of block to mailbox, then home Personal Factors Other Personal Factors That May Effect MS, Osteoporsis, dizziness. Therapy/Recovery PT-OP-G Mobility & Gait Start: 05/23/21 18:50 Freq: Status: Active Protocol: Document 05/25/21 11:23 LRN (Rec: 05/25/21 12:06 LRN [id number]) OP Gait Assessment Gait Gait Assistance Required: Independent Able to Maintain Weight Bearing Status Yes During Gait Assistive Devices Assistive Device Straight Cane Gait Deviations General Gait Pattern Decreased Stride Length, Decreased Feet Clearance, Lateral Trunk Lean,Narrow Based Gait Factors Limiting Gait Function Factors Limiting Gait Function Abnormal Tonal Influences, Decreased Activity Tolerance, Decreased Strength,Poor Balance Comments Gait Comments Gait with SPC on R side. Pt hold her R leg stiff with the Ankle in inversion. PT-OP-J Posture/Palpation/Skin Start: 05/23/21 18:50 Freq: Status: Active Protocol: Document 05/25/21 11:23 LRN (Rec: 05/25/21 12:06 LRN [id number]) Posture Evaluation Position Standing Head/C-Spine Posture Forward Head Shoulder Posture (L) Elevated Knee Posture (L) Excess Flexion Ankle/Foot Posture (R) Supinated,(R) Calcaneal Inversion Comments Posture Comments L leg long, holds knee flexed. When R knee is straight, the pelvis rotates right. Slight curve of back with apex on the left. PT-OP-M Strength Start: 05/23/21 18:50 Freq: Status: Active Protocol: Document 05/25/21 11:23 LRN (Rec: 05/25/21 12:06 LRN [id number]) Hip Strength Hip Manual Muscle Testing Right Flexion (L2) 5 Normal External Rotation 3- Fair- Internal Rotation 4+ Good+ Left Flexion (L2) 4+ Good+ External Rotation 2 Poor Internal Rotation 4+ Good+ Knee Strength Knee Manual Muscle Testing Right Flexion (S2) 4 Good Extension (L3) 3+ Fair+ Left Flexion (S2) 4 Good Extension (L3) 5 Normal Ankle/Foot Strength Ankle and Foot Manual Muscle Testing Right Dorsiflexion (L4) 2+ Poor+ Plantarflexion (S1) 3+ Fair+ Inversion 3 Fair Eversion (S1) 2 Poor Left Comments Generally 5/5 PT-OP-Q Treatments Start: 05/23/21 18:50 Freq: Status: Active Protocol: Document 05/25/21 11:23 LRN (Rec: 05/25/21 12:06 LRN [id number]) Self-Care/Home Management Treatment Education Other Education Discussed results of evaluation, goals, and plan of care (POC). Pt agreeable to goals and POC. PT-OP-T Assessment and Plan Start: 05/23/21 18:50 Freq: Status: Active Protocol: Document 05/25/21 11:23 LRN (Rec: 05/25/21 12:06 LRN [id number]) Physical Therapy Assessment Rehab Potential Rehabilitation Potential Good Evaluation Complexity Number of Personal Factors/Comorbidities 3 or More Number of Body Systems Impaired 4 or More Clinical Presentation at Evaluation Evolving Impairments Impairments Activity Tolerance,Balance, Gait,Posture,Strength, Transfers Goals Four Impairment Gait dysfunction Impairment R foot drop with occasional catching of toes. Short Term Goal (STG) Increase R hip/knee/ankle strength by 1/2 grade. STG Duration 07/10/21 Skiing Instructor Goal (LTG) Legs not as tired at the end of the day with pt able to take her dog on a longer walk to end of block and back. LTG Duration 08/23/21 Three Impairment Decreased Balance Impairment Loss of balance without fall 2x/day in home. STG Duration 07/10/21 Long-Term Goal (LTG) Improve balance with less reported LOB or no loss of balance with gait in home with more consistent use of AFO. LTG Duration 08/23/21 Two Impairment Decreased R LE strength Impairment Hip: Flexion 5/5 L, 4+/5 R; ER 3-/5 R, 2/5 L; IR 4+/5 bilaterally. Knee: Flex: 4/5 bilaterally; Ext: 3+/5 R, 5/5 L Ankle: Left: generally 5/5; Right: DF 2+/5, PF 3+/5, IV 3/ 5, EV 2/5. Short Term Goal (STG) Improve R ankle: generally 3+/ 5, R Knee: generally 4+/5; R hip AB 4/5 STG Duration 07/10/21 Long-Term Goal (LTG) Increase R LE strength with pt able to lift self into bed at end of day with use of R leg. LTG Duration 08/23/21 One Impairment HEP Short Term Goal (STG) Pt will be independent with a self care HEP of hip/knee/ ankle strengthening exercises. STG Duration 06/23/21 Skiing Instructor Goal (LTG) Pt will be independent with a self care HEP of core strengthening exercises. LTG Duration 08/23/21 Assessment Summary Assessment Pt presents with decreased R LE strength that she feels is related to the progression of her Multiple Sclerosis. She appears to have R LE extensor tone with gait with R footdrop and inversion and has a history of loss of balance at home without falls due to catching of his R toes during gait. The pt will benefit from skilled physical therapy to improve RLE and core strength, improve gait and safety with gait, and improve endurance for greater functional ability in order to achieve the above stated goals. Physical Therapy Plan Frequency and Duration Frequency of Treatment 2x/Week Plan of Care Start Date 05/25/21 Plan of Care End Date 08/23/21 Therapeutic Interventions Therapeutic Interventions Home Exercise Program, Neuromuscular Re-education, Patient/Caregiver Education, Self-Care/Home Management, Therapeutic Activities, Therapeutic Exercises Modalities Cold Pack/Ice Massage,Hot Packs Other Referrals/Consults Referrals/Consults Recommended Vestibular Rehabilitation. Next Visit Focus/Plan Next Note Type Treatment Note Next Visit Plan LE strengthening (assess hip/ core strength), TUG, Tinetti, HEP progression, neuro- reeducation for balance.
--- NOTE | 2021-05-25 16:46 | PT.OPPOC ---
Physical, Occupational & Speech Therapy At [facility] Current Diagnoses Major depressive disorder, single episode, in full remission (05/25/21) Multiple sclerosis (05/25/21) Muscle weakness (generalized) (05/25/21) Age-related osteoporosis without current pathological fracture (05/25/21) Unspecified abnormalities of gait and mobility (05/25/21) Dizziness and giddiness (05/25/21) Visit Care Team Role Provider Type Erik Hernandez MD Attending Provider Physician Family Provider Primary Care Provider Referring Provider Specialty: Internal Medicine Address: [address] [place] [address], [facility] Email: Plan Of Care PT-OP-T Assessment and Plan Start: 05/23/21 18:50 Freq: Status: Active Protocol: Document 05/25/21 11:23 LRN (Rec: 05/25/21 12:06 LRN [id number]) Physical Therapy Assessment Rehab Potential Rehabilitation Potential Good Evaluation Complexity Number of Personal Factors/Comorbidities 3 or More Number of Body Systems Impaired 4 or More Clinical Presentation at Evaluation Evolving Impairments Impairments Activity Tolerance,Balance, Gait,Posture,Strength, Transfers Goals Four Impairment Gait dysfunction Impairment R foot drop with occasional catching of toes. Short Term Goal (STG) Increase R hip/knee/ankle strength by 1/2 grade. STG Duration 07/10/21 Intermediate Goal (LTG) Legs not as tired at the end of the day with pt able to take her dog on a longer walk to end of block and back. LTG Duration 08/23/21 Three Impairment Decreased Balance Impairment Loss of balance without fall 2x/day in home. STG Duration 07/10/21 Legal Compliance Officer Goal (LTG) Improve balance with less reported LOB or no loss of balance with gait in home with more consistent use of AFO. LTG Duration 08/23/21 Two Impairment Decreased R LE strength Impairment Hip: Flexion 5/5 L, 4+/5 R; ER 3-/5 R, 2/5 L; IR 4+/5 bilaterally. Knee: Flex: 4/5 bilaterally; Ext: 3+/5 R, 5/5 L Ankle: Left: generally 5/5; Right: DF 2+/5, PF 3+/5, IV 3/ 5, EV 2/5. Short Term Goal (STG) Improve R ankle: generally 3+/ 5, R Knee: generally 4+/5; R hip AB 4/5 STG Duration 07/10/21 Intermediate Goal (LTG) Increase R LE strength with pt able to lift self into bed at end of day with use of R leg. LTG Duration 08/23/21 One Impairment HEP Short Term Goal (STG) Pt will be independent with a self care HEP of hip/knee/ ankle strengthening exercises. STG Duration 06/23/21 Legal Compliance Officer Goal (LTG) Pt will be independent with a self care HEP of core strengthening exercises. LTG Duration 08/23/21 Assessment Summary Assessment Pt presents with decreased R LE strength that she feels is related to the progression of her Multiple Sclerosis. She appears to have R LE extensor tone with gait with R footdrop and inversion and has a history of loss of balance at home without falls due to catching of his R toes during gait. The pt will benefit from skilled physical therapy to improve RLE and core strength, improve gait and safety with gait, and improve endurance for greater functional ability in order to achieve the above stated goals. Physical Therapy Plan Frequency and Duration Frequency of Treatment 2x/Week Plan of Care Start Date 05/25/21 Plan of Care End Date 08/23/21 Therapeutic Interventions Therapeutic Interventions Home Exercise Program, Neuromuscular Re-education, Patient/Caregiver Education, Self-Care/Home Management, Therapeutic Activities, Therapeutic Exercises Modalities Cold Pack/Ice Massage,Hot Packs Other Referrals/Consults Referrals/Consults Recommended Vestibular Rehabilitation. Next Visit Focus/Plan Next Note Type Treatment Note Next Visit Plan LE strengthening (assess hip/ core strength), TUG, Tinetti, HEP progression, neuro- reeducation for balance. Plan of Care Dates Plan of Care Start Date 05/25/21 Plan of Care End Date 08/23/21 Electronically Signed by: Nessa Matute, PT 05/25/21 [id number] Please Sign and Return: I have reviewed this Plan of Care and certify that the skilled therapy services above are required to meet the patient?s needs. Physician Signature Date Printed Name and Credentials Clinical Instructor Signature Printed Name and Credentials
--- NOTE | 2021-05-30 15:25 | PT.OTN ---
Current Diagnoses Major depressive disorder, single episode, in full remission (05/30/21) Multiple sclerosis (05/30/21) Muscle weakness (generalized) (05/30/21) Age-related osteoporosis without current pathological fracture (05/30/21) Unspecified abnormalities of gait and mobility (05/30/21) Dizziness and giddiness (05/30/21) Physical Therapy Treatment Note PT-OP-A Visit Information Start: 05/23/21 18:50 Freq: Status: Active Protocol: Document 05/30/21 11:23 LRN (Rec: 05/30/21 12:19 LRN [id number]) Out-Patient Physical Therapy Visit Information Visit Information Visit Type Treatment Note Visit Start Time 11: Visit Stop Time 12:08 Total Visit Minutes 45 Visit Number 2 Evaluation Information Evaluation Date 05/25/21 Precautions Precautions Catches self after LOB 2x/day when R foot catches the ground , Multiple Sclerosis, Osteoporosis, Dizziness, back pain. R handed. Has life alerts, PT-OP-B Current Condition Start: 05/23/21 18:50 Freq: Status: Active Protocol: Document 05/25/21 11:23 LRN (Rec: 05/25/21 12:06 LRN [id number]) Current Condition History of Current Condition Onset Date 17 yrs ago. Current Complaints Progressive weakness of RLE, since dx'd with MS; spasticity of lisbet LE R>L History of Current Condition Pt reports R foot drop and LE weakness due to MS with R foot dragging for past 10-15 yrs. Has had MS since ~1971, started with numb patches in the legs and clumsy. She has had an AFO for the R ankle foot for 5 yrs ago and wears it intermittently because she can only wear it with one pair of shoes. Pt did not wear the AFO today. States her primary care physician sent her to PT at her request due to having had PT several years ago with Rojelio Slaughter, PT. Neurologist, Natalya Stewart is planning on having her fit for another AFO on R LE that will help her to move the R LE (keep the foot straight and help to raise the foot). Pt reports she sometimes gets dizzy causing LOB without falls. Daughter calls her daily. Prior Treatments and Tests Sees chiropractor every other week. Future Testing and Treatments Planned Fit for RLE brace/AFO; company to contact her within 2-3 weeks. Treatment Goals Patient/Caregiver Goals Pt goal is to work on: *Balance, less LOB (no loss of balance), *Gait, legs not as tired at the end of the day, take longer walks with dog (walking to end of block) *Strengthen R LE to improve ability to lift self into bed at end of day, pushing withGait R leg. Prior Functional Status Baseline Function- Gait Gait with cane. Current Functional Impairments (Reported) Functional Limitations- ADL's Difficulty getting into bed at end of day. Functional Limitations- Mobility/Gait Walks 1/[address] way to end of block to mailbox, then home Personal Factors Other Personal Factors That May Effect MS, Osteoporsis, dizziness. Therapy/Recovery PT-OP-C Subjective Start: 05/23/21 18:50 Freq: Status: Active Protocol: Document 05/30/21 11:23 LRN (Rec: 05/30/21 12:19 LRN [id number]) OP-PT Subjective Patient Comments Patient Comments Denies falls since last appointment. Wore AFO today. Brought goals: Strengthen legs (R) & upper body; Improve stamina, Raise R leg to put on pants; Hips feel like in alignment after sitting (R hip feels like it is forward). Wlak more confidently, Patient Questionnaires ABC- Activity Specific Balance Confidence Scale ABC Score 69 ABC Functional Impairment 20 to <40% Impaired (Score 61- 80) Lower Extremity Functional Scale LEFS Score 40 LEFS Impairment 40 to 59% Impaired (Score 32- 47) PT-OP-E Functional Tests Start: 05/23/21 18:50 Freq: Status: Active Protocol: Document 05/30/21 11:23 LRN (Rec: 05/30/21 12:19 LRN [id number]) Functional Tests Timed Up and Go (TUG) Score 15 Comments Wearing R AFO, Cane on R side. TUG Impairment Rating 40 to <60% Impaired (Score 14- 15) PT-OP-G Mobility & Gait Start: 05/23/21 18:50 Freq: Status: Active Protocol: Document 05/25/21 11:23 LRN (Rec: 05/25/21 12:06 LRN [id number]) OP Gait Assessment Gait Gait Assistance Required: Independent Able to Maintain Weight Bearing Status Yes During Gait Assistive Devices Assistive Device Straight Cane Gait Deviations General Gait Pattern Decreased Stride Length, Decreased Feet Clearance, Lateral Trunk Lean,Narrow Based Gait Factors Limiting Gait Function Factors Limiting Gait Function Abnormal Tonal Influences, Decreased Activity Tolerance, Decreased Strength,Poor Balance Comments Gait Comments Gait with SPC on R side. Pt hold her R leg stiff with the Ankle in inversion. PT-OP-J Posture/Palpation/Skin Start: 05/23/21 18:50 Freq: Status: Active Protocol: Document 05/25/21 11:23 LRN (Rec: 05/25/21 12:06 LRN [id number]) Posture Evaluation Position Standing Head/C-Spine Posture Forward Head Shoulder Posture (L) Elevated Knee Posture (L) Excess Flexion Ankle/Foot Posture (R) Supinated,(R) Calcaneal Inversion Comments Posture Comments L leg long, holds knee flexed. When R knee is straight, the pelvis rotates right. Slight curve of back with apex on the left. PT-OP-M Strength Start: 05/23/21 18:50 Freq: Status: Active Protocol: Document 05/30/21 11:23 LRN (Rec: 05/30/21 12:19 LRN [id number]) Hip Strength Hip Manual Muscle Testing Right Flexion (L2) 5 Normal Extension (S1) 3- Fair- Abduction 2 Poor Adduction 3+ Fair+ External Rotation 3- Fair- Internal Rotation 4+ Good+ Left Flexion (L2) 4+ Good+ Extension (S1) 3- Fair- Abduction 3 Fair Adduction 5 Normal External Rotation 2 Poor Internal Rotation 4+ Good+ PT-OP-Q Treatments Start: 05/23/21 18:50 Freq: Status: Active Protocol: Document 05/30/21 11:23 LRN (Rec: 05/30/21 12:19 LRN [id number]) Therapeutic Exercises Supine Exercises Hip Flex Supine Exercise Name Hip Flex Side bilateral Reps/Minutes 2' Comments Phys assist needed initially on R for full SLR Prone Exercises Hip Ext Prone Exercise Name Hip Ext Side bilateral Reps/Minutes 2' Comments MMT taken Sidelying Exercises Hip AD Sidelying Exercise Name Hip AD Side bilateral Reps/Minutes 3' Comments MMT taken, v cuing needed to keep on sides due to core weakness Hip AB Sidelying Exercise Name Hip AB R> L Side bilateral Reps/Minutes 4' Comments MMT taken, v cuing needed to keep on sides due to core weakness Sitting Exercises Hip Flex Sitting Exercise Name Ecc>Conc hip flex strengthening Side right Reps/Minutes 6' Standing Exercises Shallow Squats Standing Exercise Name Shallow squats Side bilateral Reps/Minutes 30x R knee flex Standing Exercise Name R knee flex (I/S of R leg behind) Side bilateral Reps/Minutes 10x 3 left lifts, 10x right lifts Comments Extra guarding needed for L foot lifts due to RLE weakness Gait Training Gait Activity Use of cane Description Gait with SPC on L/ AFO on R Device Used SPC Level of Assistance CGA Surface Level Distance/Duration 17' Treatment Focus Proper use of SPC, and reduction of R toe catching the floor Self-Care/Home Management Treatment Education Patient Education Home Exercise Program Activities Self-Care/Home Management Activities Issued & reviewed HEP: sitting and standing knee flex & shallow squats. PT-OP-T Assessment and Plan Start: 05/23/21 18:50 Freq: Status: Active Protocol: Document 05/30/21 11:23 LRN (Rec: 05/30/21 12:19 LRN [id number]) Physical Therapy Assessment Goals Four Impairment Gait dysfunction Impairment R foot drop with occasional catching of toes. Short Term Goal (STG) Increase R hip/knee/ankle strength by 1/2 grade. STG Duration 07/10/21 Pit Worker Power Shovel Goal (LTG) Legs not as tired at the end of the day with pt able to take her dog on a longer walk to end of block and back. LTG Duration 08/23/21 Three Impairment Decreased Balance Impairment Loss of balance without fall 2x/day in home. STG Duration 07/10/21 Pit Worker Power Shovel Goal (LTG) Improve balance with less reported LOB or no loss of balance with gait in home with more consistent use of AFO. LTG Duration 08/23/21 Two Impairment Decreased R LE strength Impairment Hip: Flexion 5/5 L, 4+/5 R; ER 3-/5 R, 2/5 L; IR 4+/5 bilaterally. Knee: Flex: 4/5 bilaterally; Ext: 3+/5 R, 5/5 L Ankle: Left: generally 5/5; Right: DF 2+/5, PF 3+/5, IV 3/ 5, EV 2/5. Short Term Goal (STG) Improve R ankle: generally 3+/ 5, R Knee: generally 4+/5; R hip AB 4/5 STG Duration 07/10/21 Pit Worker Power Shovel Goal (LTG) Increase R LE strength with pt able to lift self into bed at end of day with use of R leg. LTG Duration 08/23/21 One Impairment HEP Short Term Goal (STG) Pt will be independent with a self care HEP of hip/knee/ ankle strengthening exercises. (05/30/21: HEP issued for hip and knee flex strengthening) STG Duration 06/23/21 (05/30/21: Progressed) Pit Worker Power Shovel Goal (LTG) Pt will be independent with a self care HEP of core strengthening exercises. LTG Duration 08/23/21 Progress Towards Goals Progress Comments STG #1 Progresssed. Assessment Summary Assessment Weak R hip, knee causing dragging of toes with swing through. Pt holds cane too much out to side during gait. Pt needed correction of use of cane on L side vs R side. TUG score 15 secs indicates 40 <60% impaired. ABC score is 69, indicating 20<40% impaired . Physical Therapy Plan Frequency and Duration Frequency of Treatment 2x/Week Plan of Care Start Date 05/25/21 Plan of Care End Date 08/23/21 Next Visit Focus/Plan Next Note Type Treatment Note Next Visit Plan LE strengthening (assess core strength), add ankle and hip ( AB, ext) strengthening HEP, Tinetti, neuro-reeducation for balance. Pt goals received 05/30/21: Strengthen legs (R) & upper body; Improve stamina, Raise R leg to put on pants; Hips feel like in alignment after sitting (R hip feels like it is forward). Walk more confidently).
--- NOTE | 2021-06-05 16:26 | PT.OTN ---
Current Diagnoses Major depressive disorder, single episode, in full remission (06/05/21) Multiple sclerosis (06/05/21) Muscle weakness (generalized) (06/05/21) Age-related osteoporosis without current pathological fracture (06/05/21) Unspecified abnormalities of gait and mobility (06/05/21) Dizziness and giddiness (06/05/21) Physical Therapy Treatment Note PT-OP-A Visit Information Start: 05/23/21 18:50 Freq: Status: Active Protocol: Document 06/05/21 13:45 ER (Rec: 06/05/21 14:58 ER [id number]) Out-Patient Physical Therapy Visit Information Visit Information Visit Type Treatment Note Visit Note SPTA Augie lead treatment and educated with direct supervision and instruction by RAVEN Nichols Visit Start Time 13:45 Visit Stop Time 14:30 Total Visit Minutes 45 Visit Number 3 Number of ENROBING MACHINE CORDER Visits 1 PT-OP-B Current Condition Start: 05/23/21 18:50 Freq: Status: Active Protocol: Document 05/25/21 11:23 LRN (Rec: 05/25/21 12:06 LRN [id number]) Current Condition History of Current Condition Onset Date 17 yrs ago. Current Complaints Progressive weakness of RLE, since dx'd with MS; spasticity of lisbet LE R>L History of Current Condition Pt reports R foot drop and LE weakness due to MS with R foot dragging for past 10-15 yrs. Has had MS since ~1971, started with numb patches in the legs and clumsy. She has had an AFO for the R ankle foot for 5 yrs ago and wears it intermittently because she can only wear it with one pair of shoes. Pt did not wear the AFO today. States her primary care physician sent her to PT at her request due to having had PT several years ago with Rojelio Slaughter, PT. Neurologist, Natalya Stewart is planning on having her fit for another AFO on R LE that will help her to move the R LE (keep the foot straight and help to raise the foot). Pt reports she sometimes gets dizzy causing LOB without falls. Daughter calls her daily. Prior Treatments and Tests Sees chiropractor every other week. Future Testing and Treatments Planned Fit for RLE brace/AFO; company to contact her within 2-3 weeks. Treatment Goals Patient/Caregiver Goals Pt goal is to work on: *Balance, less LOB (no loss of balance), *Gait, legs not as tired at the end of the day, take longer walks with dog (walking to end of block) *Strengthen R LE to improve ability to lift self into bed at end of day, pushing withGait R leg. Prior Functional Status Baseline Function- Gait Gait with cane. Current Functional Impairments (Reported) Functional Limitations- ADL's Difficulty getting into bed at end of day. Functional Limitations- Mobility/Gait Walks 1/[address] to end of block to mailbox, then home Personal Factors Other Personal Factors That May Effect MS, Osteoporsis, dizziness. Therapy/Recovery PT-OP-C Subjective Start: 05/23/21 18:50 Freq: Status: Active Protocol: Document 06/05/21 13:45 ER (Rec: 06/05/21 14:58 ER [id number]) OP-PT Subjective Patient Comments Patient Comments Still waiting for her new AFO, and checking with provider this afternoon on progress. No falls since last visit, and doing all of her exercises regularly. PT-OP-E Functional Tests Start: 05/23/21 18:50 Freq: Status: Active Protocol: Document 05/30/21 11:23 LRN (Rec: 05/30/21 12:19 LRN [id number]) Functional Tests Timed Up and Go (TUG) Score 15 Comments Wearing R AFO, Cane on R side. TUG Impairment Rating 40 to <60% Impaired (Score 14- 15) PT-OP-G Mobility & Gait Start: 05/23/21 18:50 Freq: Status: Active Protocol: Document 05/25/21 11:23 LRN (Rec: 05/25/21 12:06 LRN [id number]) OP Gait Assessment Gait Gait Assistance Required: Independent Able to Maintain Weight Bearing Status Yes During Gait Assistive Devices Assistive Device Straight Cane Gait Deviations General Gait Pattern Decreased Stride Length, Decreased Feet Clearance, Lateral Trunk Lean,Narrow Based Gait Factors Limiting Gait Function Factors Limiting Gait Function Abnormal Tonal Influences, Decreased Activity Tolerance, Decreased Strength,Poor Balance Comments Gait Comments Gait with SPC on R side. Pt hold her R leg stiff with the Ankle in inversion. PT-OP-J Posture/Palpation/Skin Start: 05/23/21 18:50 Freq: Status: Active Protocol: Document 05/25/21 11:23 LRN (Rec: 05/25/21 12:06 LRN [id number]) Posture Evaluation Position Standing Head/C-Spine Posture Forward Head Shoulder Posture (L) Elevated Knee Posture (L) Excess Flexion Ankle/Foot Posture (R) Supinated,(R) Calcaneal Inversion Comments Posture Comments L leg long, holds knee flexed. When R knee is straight, the pelvis rotates right. Slight curve of back with apex on the left. PT-OP-M Strength Start: 05/23/21 18:50 Freq: Status: Active Protocol: Document 05/30/21 11:23 LRN (Rec: 05/30/21 12:19 LRN [id number]) Hip Strength Hip Manual Muscle Testing Right Flexion (L2) 5 Normal Extension (S1) 3- Fair- Abduction 2 Poor Adduction 3+ Fair+ External Rotation 3- Fair- Internal Rotation 4+ Good+ Left Flexion (L2) 4+ Good+ Extension (S1) 3- Fair- Abduction 3 Fair Adduction 5 Normal External Rotation 2 Poor Internal Rotation 4+ Good+ PT-OP-Q Treatments Start: 05/23/21 18:50 Freq: Status: Active Protocol: Document 06/05/21 13:45 ER (Rec: 06/05/21 14:58 ER [id number]) Therapeutic Exercises Sitting Exercises STS Sitting Exercise Name with BUE support on // > LUE support on // > no UE support, UE extended fwd Resistance //, then chair in front for safety Reps/Minutes 35 Comments progressed from BUE to no UE support, cues for hip hinging, nose over toes Hip Flex Sitting Exercise Name conc> assisted with UE> ecc lowering to count of 2 Side right Reps/Minutes 10 ea side Comments reports fatigue at rep 8. AROM good control of LLE Standing Exercises Shallow Squats Standing Exercise Name Shallow squats at //bars Side bilateral Reps/Minutes 10x Comments heavy use of UE support R knee flex Standing Exercise Name R knee flex (I/S of R leg behind) at // bars Side bilateral Reps/Minutes 10x right lifts Comments Good form, but muscle fatigued by end of tx > decreased range. Self-Care/Home Management Treatment Education Patient Education Body Mechanics,Fall Risk,Joint Protection,Posture,Safety Other Education Spent time educating patient re: footwear, breakdown of current shoes, and suggested purchasing new shoes. Current shoes are only ones that Pt can wear with AFO, but R heel is collapsing on the lateral edge, affecting balance and gait. PT-OP-T Assessment and Plan Start: 05/23/21 18:50 Freq: Status: Active Protocol: Document 06/05/21 13:45 ER (Rec: 06/05/21 14:58 ER [id number]) Physical Therapy Assessment Goals Four Impairment Gait dysfunction Impairment R foot drop with occasional catching of toes. Short Term Goal (STG) Increase R hip/knee/ankle strength by 1/2 grade. STG Duration 07/10/21 Custodial Goal (LTG) Legs not as tired at the end of the day with pt able to take her dog on a longer walk to end of block and back. LTG Duration 08/23/21 Three Impairment Decreased Balance Impairment Loss of balance without fall 2x/day in home. STG Duration 07/10/21 Hammerer Helper Goal (LTG) Improve balance with less reported LOB or no loss of balance with gait in home with more consistent use of AFO. LTG Duration 08/23/21 Two Impairment Decreased R LE strength Impairment Hip: Flexion 5/5 L, 4+/5 R; ER 3-/5 R, 2/5 L; IR 4+/5 bilaterally. Knee: Flex: 4/5 bilaterally; Ext: 3+/5 R, 5/5 L Ankle: Left: generally 5/5; Right: DF 2+/5, PF 3+/5, IV 3/ 5, EV 2/5. Short Term Goal (STG) Improve R ankle: generally 3+/ 5, R Knee: generally 4+/5; R hip AB 4/5 STG Duration 07/10/21 Custodial Goal (LTG) Increase R LE strength with pt able to lift self into bed at end of day with use of R leg. LTG Duration 08/23/21 One Impairment HEP Short Term Goal (STG) Pt will be independent with a self care HEP of hip/knee/ ankle strengthening exercises. (05/30/21: HEP issued for hip and knee flex strengthening) STG Duration 06/23/21 (05/30/21: Progressed) Custodial Goal (LTG) Pt will be independent with a self care HEP of core strengthening exercises. LTG Duration 08/23/21 Assessment Summary Assessment Pt ambulated through clinic with SPC and cruising surfact to surface, with pauses at turns and when moving past obstacles. No LOB. No falls. Pt performed reviewed HEP well , but squats relied heavily on UE machine lead burner to prevent falling backwards. Adjusted to STS. used baton initially for cues to keep head/spine/hips in alignment, but progressed to not needing it. Pt progressed from BUE support // to no UE support, but chair in front for safety. Cues for hip hinging, foot placement, reduced dependence on UE. Pt demonstrated ex tolerance by performing 35 reps over Tx. Added to HEP. Physical Therapy Plan Frequency and Duration Frequency of Treatment 2x/Week Plan of Care Start Date 05/25/21 Plan of Care End Date 08/23/21 Therapeutic Interventions Therapeutic Interventions Home Exercise Program, Neuromuscular Re-education, Patient/Caregiver Education, Self-Care/Home Management, Therapeutic Activities, Therapeutic Exercises Modalities Cold Pack/Ice Massage,Hot Packs Other Referrals/Consults Referrals/Consults Recommended Vestibular Rehabilitation. Next Visit Focus/Plan Next Note Type Treatment Note Next Visit Plan Assess STS performance. LE strengthening (assess core strength), add ankle and hip ( AB, ext) strengthening HEP, Tinetti, neuro-reeducation for balance. Pt goals received 05/30/21: Strengthen legs (R) & upper body; Improve stamina, Raise R leg to put on pants; Hips feel like in alignment after sitting (R hip feels like it is forward). Walk more confidently).
--- NOTE | 2021-06-08 12:16 | PT.OTN ---
Current Diagnoses Major depressive disorder, single episode, in full remission (06/08/21) Multiple sclerosis (06/08/21) Muscle weakness (generalized) (06/08/21) Age-related osteoporosis without current pathological fracture (06/08/21) Unspecified abnormalities of gait and mobility (06/08/21) Dizziness and giddiness (06/08/21) Physical Therapy Treatment Note PT-OP-A Visit Information Start: 05/23/21 18:50 Freq: Status: Active Protocol: Document 06/08/21 11:17 LRN (Rec: 06/08/21 11:00 LRN [id number]) Out-Patient Physical Therapy Visit Information Visit Information Visit Type Treatment Note Visit Start Time 11:17 Visit Stop Time 11:59 Total Visit Minutes 42 Visit Number 4 Evaluation Information Evaluation Date 05/25/21 Precautions Precautions Catches self after LOB 2x/day when R foot catches the ground , Multiple Sclerosis, Osteoporosis, Dizziness, back pain. R handed. Has life alerts, PT-OP-B Current Condition Start: 05/23/21 18:50 Freq: Status: Active Protocol: Document 05/25/21 11:23 LRN (Rec: 05/25/21 12:06 LRN [id number]) Current Condition History of Current Condition Onset Date 17 yrs ago. Current Complaints Progressive weakness of RLE, since dx'd with MS; spasticity of lisbet LE R>L History of Current Condition Pt reports R foot drop and LE weakness due to MS with R foot dragging for past 10-15 yrs. Has had MS since ~1971, started with numb patches in the legs and clumsy. She has had an AFO for the R ankle foot for 5 yrs ago and wears it intermittently because she can only wear it with one pair of shoes. Pt did not wear the AFO today. States her primary care physician sent her to PT at her request due to having had PT several years ago with Rojelio Slaughter, PT. Neurologist, Natalya Stewart is planning on having her fit for another AFO on R LE that will help her to move the R LE (keep the foot straight and help to raise the foot). Pt reports she sometimes gets dizzy causing LOB without falls. Daughter calls her daily. Prior Treatments and Tests Sees chiropractor every other week. Future Testing and Treatments Planned Fit for RLE brace/AFO; company to contact her within 2-3 weeks. Treatment Goals Patient/Caregiver Goals Pt goal is to work on: *Balance, less LOB (no loss of balance), *Gait, legs not as tired at the end of the day, take longer walks with dog (walking to end of block) *Strengthen R LE to improve ability to lift self into bed at end of day, pushing withGait R leg. Prior Functional Status Baseline Function- Gait Gait with cane. Current Functional Impairments (Reported) Functional Limitations- ADL's Difficulty getting into bed at end of day. Functional Limitations- Mobility/Gait Walks 1/2 way to end of block to mailbox, then home Personal Factors Other Personal Factors That May Effect MS, Osteoporsis, dizziness. Therapy/Recovery PT-OP-C Subjective Start: 05/23/21 18:50 Freq: Status: Active Protocol: Document 06/08/21 11:17 LRN (Rec: 06/08/21 11:00 LRN [id number]) OP-PT Subjective Patient Comments Patient Comments Feels she is doing well. Does all ex's at home, but mixes them up. PT-OP-E Functional Tests Start: 05/23/21 18:50 Freq: Status: Active Protocol: Document 05/30/21 11:23 LRN (Rec: 05/30/21 12:19 LRN [id number]) Functional Tests Timed Up and Go (TUG) Score 15 Comments Wearing R AFO, Cane on R side. TUG Impairment Rating 40 to <60% Impaired (Score 14- 15) PT-OP-G Mobility & Gait Start: 05/23/21 18:50 Freq: Status: Active Protocol: Document 05/25/21 11:23 LRN (Rec: 05/25/21 12:06 LRN [id number]) OP Gait Assessment Gait Gait Assistance Required: Independent Able to Maintain Weight Bearing Status Yes During Gait Assistive Devices Assistive Device Straight Cane Gait Deviations General Gait Pattern Decreased Stride Length, Decreased Feet Clearance, Lateral Trunk Lean,Narrow Based Gait Factors Limiting Gait Function Factors Limiting Gait Function Abnormal Tonal Influences, Decreased Activity Tolerance, Decreased Strength,Poor Balance Comments Gait Comments Gait with SPC on R side. Pt hold her R leg stiff with the Ankle in inversion. PT-OP-J Posture/Palpation/Skin Start: 05/23/21 18:50 Freq: Status: Active Protocol: Document 05/25/21 11:23 LRN (Rec: 05/25/21 12:06 LRN [id number]) Posture Evaluation Position Standing Head/C-Spine Posture Forward Head Shoulder Posture (L) Elevated Knee Posture (L) Excess Flexion Ankle/Foot Posture (R) Supinated,(R) Calcaneal Inversion Comments Posture Comments L leg long, holds knee flexed. When R knee is straight, the pelvis rotates right. Slight curve of back with apex on the left. PT-OP-M Strength Start: 05/23/21 18:50 Freq: Status: Active Protocol: Document 06/08/21 11:17 LRN (Rec: 06/08/21 12:16 LRN [id number]) Trunk Strength Trunk Manual Muscle Testing Testing Position Sitting Flexion 4+ Good+ Extension 4- Good- Rotation Left 5 Normal Rotation Right 3 Fair Lateral Flexion Left 4- Good- Lateral Flexion Right 3 Fair PT-OP-Q Treatments Start: 05/23/21 18:50 Freq: Status: Active Protocol: Document 06/08/21 11:17 LRN (Rec: 06/08/21 11:18 LRN [id number]) Therapeutic Exercises Sitting Exercises Trunk rot Sitting Exercise Name Trunk rot strengthening Side bilateral Equipment Used Lev 1 TB Reps/Minutes 15x bilaterally Comments Extra time for transitioning. Hip flex w/ER Sitting Exercise Name R heel slide from ankle to knee Side right Equipment Used gait belt Reps/Minutes 3x 5 reps, extra training for conc/ecc strength training Comments Extra time for training to perform correctly STS Sitting Exercise Name Without hand assist from webbed chair. Reps/Minutes 40 10x Hip Flex Sitting Exercise Name conc> assisted with UE> ecc lowering to count of 2 Side right Reps/Minutes 10 ea side Comments reports fatigue at rep 8. AROM good control of LLE Standing Exercises Hip AB Standing Exercise Name Hip AB Side bilateral Equipment Used Railing Reps/Minutes 10x each Comments Much Extra time taken for proper posturing with ex. R knee flex Standing Exercise Name R knee flex (I/S of R leg behind) at // bars Side bilateral Reps/Minutes 15x right lifts Comments Good form, but muscle fatigued by end of tx > decreased range. Gait Training Gait Activity Use of cane Comments ............ Self-Care/Home Management Treatment Activities Self-Care/Home Management Activities HEP issued & reviewed: Standing hip AB. PT-OP-T Assessment and Plan Start: 05/23/21 18:50 Freq: Status: Active Protocol: Document 06/08/21 11:17 LRN (Rec: 06/08/21 11:00 LRN [id number]) Physical Therapy Assessment Goals Four Impairment Gait dysfunction Impairment R foot drop with occasional catching of toes. Short Term Goal (STG) Increase R hip/knee/ankle strength by 1/2 grade. STG Duration 07/10/21 Press Operator Heavy Duty Goal (LTG) Legs not as tired at the end of the day with pt able to take her dog on a longer walk to end of block and back. LTG Duration 08/23/21 Three Impairment Decreased Balance Impairment Loss of balance without fall 2x/day in home. STG Duration 07/10/21 Press Operator Heavy Duty Goal (LTG) Improve balance with less reported LOB or no loss of balance with gait in home with more consistent use of AFO. LTG Duration 08/23/21 Two Impairment Decreased R LE strength Impairment Hip: Flexion 5/5 L, 4+/5 R; ER 3-/5 R, 2/5 L; IR 4+/5 bilaterally. Knee: Flex: 4/5 bilaterally; Ext: 3+/5 R, 5/5 L Ankle: Left: generally 5/5; Right: DF 2+/5, PF 3+/5, IV 3/ 5, EV 2/5. Short Term Goal (STG) Improve R ankle: generally 3+/ 5, R Knee: generally 4+/5; R hip AB 4/5 STG Duration 07/10/21 Press Operator Heavy Duty Goal (LTG) Increase R LE strength with pt able to lift self into bed at end of day with use of R leg. LTG Duration 08/23/21 One Impairment HEP Short Term Goal (STG) Pt will be independent with a self care HEP of hip/knee/ ankle strengthening exercises. (05/30/21: HEP issued for hip and knee flex strengthening) (06/08/21: Added HEP hip AB strengthening) STG Duration 06/23/21 (05/30/21: Progressed) Senior Living Goal (LTG) Pt will be independent with a self care HEP of core strengthening exercises. LTG Duration 08/23/21 Progress Towards Goals Progress Comments Progressed HEP. Assessment Summary Assessment Pt able to do sit to stands in chair without use of hands safely, but at very end of therapy had LOB with transfer, probably due to LE fatigue. Pt is weak with Trunk SB and Rot R. She tends to lock her R knee even with AFO on during gait and needs v. cuing to limit locking of knee. Physical Therapy Plan Frequency and Duration Frequency of Treatment 2x/Week Plan of Care Start Date 05/25/21 Plan of Care End Date 08/23/21 Next Visit Focus/Plan Next Note Type Treatment Note Next Visit Plan LE & core (R rot/SB) strengthening, add ankle and hip (ext) strengthening HEP, Tinetti, neuro-reeducation for balance. Pt goals received 05/30/21: Strengthen legs (R) & upper body; Improve stamina, Raise R leg to put on pants; Hips feel like in alignment after sitting (R hip feels like it is forward). Walk more confidently). Pt new reported goal: Be able to lift R leg for ease of dressing.
--- NOTE | 2021-06-13 12:13 | PT.OTN ---
Current Diagnoses Major depressive disorder, single episode, in full remission (06/13/21) Multiple sclerosis (06/13/21) Muscle weakness (generalized) (06/13/21) Age-related osteoporosis without current pathological fracture (06/13/21) Unspecified abnormalities of gait and mobility (06/13/21) Dizziness and giddiness (06/13/21) Physical Therapy Treatment Note PT-OP-A Visit Information Start: 05/23/21 18:50 Freq: Status: Active Protocol: Document 06/13/21 11:29 LRN (Rec: 06/13/21 12:12 LRN [id number]) Out-Patient Physical Therapy Visit Information Visit Information Visit Type Treatment Note Visit Start Time 11:29 Visit Stop Time 12:08 Total Visit Minutes 39 Visit Number 5 Evaluation Information Evaluation Date 05/25/21 Precautions Precautions Catches self after LOB 2x/day when R foot catches the ground , Multiple Sclerosis, Osteoporosis, Dizziness, back pain. R handed. Has life alerts, PT-OP-B Current Condition Start: 05/23/21 18:50 Freq: Status: Active Protocol: Document 05/25/21 11:23 LRN (Rec: 05/25/21 12:06 LRN [id number]) Current Condition History of Current Condition Onset Date 17 yrs ago. Current Complaints Progressive weakness of RLE, since dx'd with MS; spasticity of lisbet LE R>L History of Current Condition Pt reports R foot drop and LE weakness due to MS with R foot dragging for past 10-15 yrs. Has had MS since ~1971, started with numb patches in the legs and clumsy. She has had an AFO for the R ankle foot for 5 yrs ago and wears it intermittently because she can only wear it with one pair of shoes. Pt did not wear the AFO today. States her primary care physician sent her to PT at her request due to having had PT several years ago with Rojelio Slaughter, PT. Neurologist, Natalya Stewart is planning on having her fit for another AFO on R LE that will help her to move the R LE (keep the foot straight and help to raise the foot). Pt reports she sometimes gets dizzy causing LOB without falls. Daughter calls her daily. Prior Treatments and Tests Sees chiropractor every other week. Future Testing and Treatments Planned Fit for RLE brace/AFO; company to contact her within 2-3 weeks. Treatment Goals Patient/Caregiver Goals Pt goal is to work on: *Balance, less LOB (no loss of balance), *Gait, legs not as tired at the end of the day, take longer walks with dog (walking to end of block) *Strengthen R LE to improve ability to lift self into bed at end of day, pushing withGait R leg. Prior Functional Status Baseline Function- Gait Gait with cane. Current Functional Impairments (Reported) Functional Limitations- ADL's Difficulty getting into bed at end of day. Functional Limitations- Mobility/Gait Walks 1/[address] to end of block to mailbox, then home Personal Factors Other Personal Factors That May Effect MS, Osteoporsis, dizziness. Therapy/Recovery PT-OP-C Subjective Start: 05/23/21 18:50 Freq: Status: Active Protocol: Document 06/13/21 11:29 LRN (Rec: 06/13/21 12:12 LRN [id number]) OP-PT Subjective Patient Comments Patient Comments Did ex's and legs were very tired afterwards. PT-OP-E Functional Tests Start: 05/23/21 18:50 Freq: Status: Active Protocol: Document 05/30/21 11:23 LRN (Rec: 05/30/21 12:19 LRN [id number]) Functional Tests Timed Up and Go (TUG) Score 15 Comments Wearing R AFO, Cane on R side. TUG Impairment Rating 40 to <60% Impaired (Score 14- 15) PT-OP-G Mobility & Gait Start: 05/23/21 18:50 Freq: Status: Active Protocol: Document 05/25/21 11:23 LRN (Rec: 05/25/21 12:06 LRN [id number]) OP Gait Assessment Gait Gait Assistance Required: Independent Able to Maintain Weight Bearing Status Yes During Gait Assistive Devices Assistive Device Straight Cane Gait Deviations General Gait Pattern Decreased Stride Length, Decreased Feet Clearance, Lateral Trunk Lean,Narrow Based Gait Factors Limiting Gait Function Factors Limiting Gait Function Abnormal Tonal Influences, Decreased Activity Tolerance, Decreased Strength,Poor Balance Comments Gait Comments Gait with SPC on R side. Pt hold her R leg stiff with the Ankle in inversion. PT-OP-J Posture/Palpation/Skin Start: 11/16/21 18:50 Freq: Status: Active Protocol: Document 05/25/21 11:23 LRN (Rec: 05/25/21 12:06 LRN [id number]) Posture Evaluation Position Standing Head/C-Spine Posture Forward Head Shoulder Posture (L) Elevated Knee Posture (L) Excess Flexion Ankle/Foot Posture (R) Supinated,(R) Calcaneal Inversion Comments Posture Comments L leg long, holds knee flexed. When R knee is straight, the pelvis rotates right. Slight curve of back with apex on the left. PT-OP-M Strength Start: 05/23/21 18:50 Freq: Status: Active Protocol: Document 06/08/21 11:17 LRN (Rec: 06/08/21 12:16 LRN [id number]) Trunk Strength Trunk Manual Muscle Testing Testing Position Sitting Flexion 4+ Good+ Extension 4- Good- Rotation Left 5 Normal Rotation Right 3 Fair Lateral Flexion Left 4- Good- Lateral Flexion Right 3 Fair PT-OP-Q Treatments Start: 05/23/21 18:50 Freq: Status: Active Protocol: Document 06/13/21 11:29 LRN (Rec: 06/13/21 12:12 LRN [id number]) Therapeutic Exercises Sitting Exercises Knee flex Sitting Exercise Name Knee flex strengthening Side right Equipment Used Lev1 TB Reps/Minutes 10x 2 Trunk rot Sitting Exercise Name Trunk rot strengthening Side bilateral Equipment Used Lev 1 TB Reps/Minutes 10x 2, bilaterally Comments Extra time for transitioning. Hip flex w/ER Sitting Exercise Name R heel slide from ankle to knee Side right Equipment Used gait belt Reps/Minutes 10x reps STS Sitting Exercise Name Hands across chest and reaching forward (when tiring) Reps/Minutes 10x Comments Much cuing and training needed for contolled sit. Hip Flex Sitting Exercise Name Hip flex w/core stable Side right Reps/Minutes 10 ea side Comments Much cuing needed for core awareness Standing Exercises Hip Ext Standing Exercise Name Hip Ext (R>L) Side bilateral Equipment Used // bars Reps/Minutes 10x 3 L, 10x 2 R. Comments Cuing of posture and performance of ex. Rest needed after ex, fatigue RLE Hip AB Standing Exercise Name Hip AB Side bilateral Equipment Used Railing Reps/Minutes 10x 3 each Comments Much Extra time taken for proper posturing with ex. Self-Care/Home Management Treatment Education Patient Education Home Exercise Program Activities Self-Care/Home Management Activities HEP issued & reviewed: Standing hip Extension PT-OP-T Assessment and Plan Start: 05/23/21 18:50 Freq: Status: Active Protocol: Document 06/13/21 11:29 LRN (Rec: 06/13/21 12:12 LRN [id number]) Physical Therapy Assessment Goals Four Impairment Gait dysfunction Impairment R foot drop with occasional catching of toes. Short Term Goal (STG) Increase R hip/knee/ankle strength by 1/2 grade. STG Duration 07/10/21 Detention Goal (LTG) Legs not as tired at the end of the day with pt able to take her dog on a longer walk to end of block and back. LTG Duration 08/23/21 Three Impairment Decreased Balance Impairment Loss of balance without fall 2x/day in home. STG Duration 07/10/21 Oil Field Pumper Goal (LTG) Improve balance with less reported LOB or no loss of balance with gait in home with more consistent use of AFO. LTG Duration 08/23/21 Two Impairment Decreased R LE strength Impairment Hip: Flexion 5/5 L, 4+/5 R; ER 3-/5 R, 2/5 L; IR 4+/5 bilaterally. Knee: Flex: 4/5 bilaterally; Ext: 3+/5 R, 5/5 L Ankle: Left: generally 5/5; Right: DF 2+/5, PF 3+/5, IV 3/ 5, EV 2/5. Short Term Goal (STG) Improve R ankle: generally 3+/ 5, R Knee: generally 4+/5; R hip AB 4/5 STG Duration 07/10/21 Oil Field Pumper Goal (LTG) Increase R LE strength with pt able to lift self into bed at end of day with use of R leg. LTG Duration 08/23/21 One Impairment HEP Short Term Goal (STG) Pt will be independent with a self care HEP of hip/knee/ ankle strengthening exercises. (05/30/21: HEP issued for hip and knee flex strengthening) (06/08/21: Strengthening: Added HEP hip AB; 06/13/21: Added hip Ext) STG Duration 06/23/21 (05/30/21: Progressed) Oil Field Pumper Goal (LTG) Pt will be independent with a self care HEP of core strengthening exercises. LTG Duration 08/23/21 Progress Towards Goals Progress Comments Progressed HEP. Pt able to sit to stand without use of hands. Assessment Summary Assessment Good understanding of hip ex, athough review of ex progression needed (reps to do ). Poor core control with sitting R hip flex. Improved sit to stand ability. Physical Therapy Plan Frequency and Duration Frequency of Treatment 2x/Week Plan of Care Start Date 05/25/21 Plan of Care End Date 08/23/21 Next Visit Focus/Plan Next Note Type Treatment Note Next Visit Plan Review hip Ext and trunk rot strengthening; Add LE & core ( R SB) strengthening, add ankle strengthening HEP, Tinetti, neuro-reeducation for balance . Pt goals received 05/30/21: Strengthen legs (R) & upper body; Improve stamina, Raise R leg to put on pants; Hips feel like in alignment after sitting (R hip feels like it is forward). Walk more confidently). Pt new reported goal: Be able to lift R leg for ease of dressing.
--- NOTE | 2021-06-15 13:34 | PT.OTN ---
Current Diagnoses Major depressive disorder, single episode, in full remission (06/15/21) Multiple sclerosis (06/15/21) Muscle weakness (generalized) (06/15/21) Age-related osteoporosis without current pathological fracture (06/15/21) Unspecified abnormalities of gait and mobility (06/15/21) Dizziness and giddiness (06/15/21) Physical Therapy Treatment Note PT-OP-A Visit Information Start: 05/23/21 18:50 Freq: Status: Active Protocol: Document 06/15/21 12:49 LRN (Rec: 06/15/21 13:33 LRN [id number]) Out-Patient Physical Therapy Visit Information Visit Information Visit Type Treatment Note Visit Start Time 12:49 Visit Stop Time 13:30 Total Visit Minutes 41 Visit Number 6 Evaluation Information Evaluation Date 05/25/21 Precautions Precautions Catches self after LOB 2x/day when R foot catches the ground , Multiple Sclerosis, Osteoporosis, Dizziness, back pain. R handed. Has life alerts, PT-OP-B Current Condition Start: 05/23/21 18:50 Freq: Status: Active Protocol: Document 05/25/21 11:23 LRN (Rec: 05/25/21 12:06 LRN [id number]) Current Condition History of Current Condition Onset Date 17 yrs ago. Current Complaints Progressive weakness of RLE, since dx'd with MS; spasticity of lisbet LE R>L History of Current Condition Pt reports R foot drop and LE weakness due to MS with R foot dragging for past 10-15 yrs. Has had MS since ~1971, started with numb patches in the legs and clumsy. She has had an AFO for the R ankle foot for 5 yrs ago and wears it intermittently because she can only wear it with one pair of shoes. Pt did not wear the AFO today. States her primary care physician sent her to PT at her request due to having had PT several years ago with Rojelio Slaughter, PT. Neurologist, Natalya Stewart is planning on having her fit for another AFO on R LE that will help her to move the R LE (keep the foot straight and help to raise the foot). Pt reports she sometimes gets dizzy causing LOB without falls. Daughter calls her daily. Prior Treatments and Tests Sees chiropractor every other week. Future Testing and Treatments Planned Fit for RLE brace/AFO; company to contact her within 2-3 weeks. Treatment Goals Patient/Caregiver Goals Pt goal is to work on: *Balance, less LOB (no loss of balance), *Gait, legs not as tired at the end of the day, take longer walks with dog (walking to end of block) *Strengthen R LE to improve ability to lift self into bed at end of day, pushing withGait R leg. Prior Functional Status Baseline Function- Gait Gait with cane. Current Functional Impairments (Reported) Functional Limitations- ADL's Difficulty getting into bed at end of day. Functional Limitations- Mobility/Gait Walks 1/2 way to end of block to mailbox, then home Personal Factors Other Personal Factors That May Effect MS, Osteoporsis, dizziness. Therapy/Recovery PT-OP-C Subjective Start: 05/23/21 18:50 Freq: Status: Active Protocol: Document 06/15/21 12:49 LRN (Rec: 06/15/21 13:33 LRN [id number]) OP-PT Subjective Patient Comments Patient Comments Doing ex's. PT-OP-E Functional Tests Start: 05/23/21 18:50 Freq: Status: Active Protocol: Document 05/30/21 11:23 LRN (Rec: 05/30/21 12:19 LRN [id number]) Functional Tests Timed Up and Go (TUG) Score 15 Comments Wearing R AFO, Cane on R side. TUG Impairment Rating 40 to <60% Impaired (Score 14- 15) PT-OP-G Mobility & Gait Start: 05/23/21 18:50 Freq: Status: Active Protocol: Document 05/25/21 11:23 LRN (Rec: 05/25/21 12:06 LRN [id number]) OP Gait Assessment Gait Gait Assistance Required: Independent Able to Maintain Weight Bearing Status Yes During Gait Assistive Devices Assistive Device Straight Cane Gait Deviations General Gait Pattern Decreased Stride Length, Decreased Feet Clearance, Lateral Trunk Lean,Narrow Based Gait Factors Limiting Gait Function Factors Limiting Gait Function Abnormal Tonal Influences, Decreased Activity Tolerance, Decreased Strength,Poor Balance Comments Gait Comments Gait with SPC on R side. Pt hold her R leg stiff with the Ankle in inversion. PT-OP-J Posture/Palpation/Skin Start: 05/23/21 18:50 Freq: Status: Active Protocol: Document 05/25/21 11:23 LRN (Rec: 05/25/21 12:06 LRN [id number]) Posture Evaluation Position Standing Head/C-Spine Posture Forward Head Shoulder Posture (L) Elevated Knee Posture (L) Excess Flexion Ankle/Foot Posture (R) Supinated,(R) Calcaneal Inversion Comments Posture Comments L leg long, holds knee flexed. When R knee is straight, the pelvis rotates right. Slight curve of back with apex on the left. PT-OP-M Strength Start: 05/23/21 18:50 Freq: Status: Active Protocol: Document 06/08/21 11:17 LRN (Rec: 06/08/21 12:16 LRN [id number]) Trunk Strength Trunk Manual Muscle Testing Testing Position Sitting Flexion 4+ Good+ Extension 4- Good- Rotation Left 5 Normal Rotation Right 3 Fair Lateral Flexion Left 4- Good- Lateral Flexion Right 3 Fair PT-OP-Q Treatments Start: 05/23/21 18:50 Freq: Status: Active Protocol: Document 06/15/21 12:49 LRN (Rec: 06/15/21 13:33 LRN [id number]) Therapeutic Exercises Sitting Exercises Trunk Ext Sitting Exercise Name Trunk Ext Resistance 10' from wall Equipment Used Red Sport Cord Reps/Minutes 10x 3 Knee flex Sitting Exercise Name Knee flex strengthening Side right Equipment Used Lev1 TB (2 strands) Reps/Minutes 10x, 5x, 4x, 7x Comments Phys cuing for movement R as also moving L. Trunk rot Sitting Exercise Name UB rotation Side bilateral Equipment Used Lev 1 TB Reps/Minutes 10x 3, bilaterally Comments Pt felt upper trunk rot to L was harder. Hip flex w/ER Sitting Exercise Name R heel slide from ankle to knee Side right Reps/Minutes 10x 1 reps Comments Assist to lift the R LE. Hip Flex Sitting Exercise Name Hip flex w/core stable Side right Reps/Minutes 10x 2 reps Comments Cuing for core awareness Standing Exercises Trunk SB Standing Exercise Name Trunk SB Equipment Used Lev 1 TB, GB Reps/Minutes 10x 2 Right, 10x left Comments SBA>CGA w/GB Hip Ext Standing Exercise Name Hip Ext (R>L) Side bilateral Equipment Used // bars Reps/Minutes 10x 3 L, 10x 2 R. Comments Cuing of posture and performance of ex. Rest needed after ex, fatigue RLE Hip AB Standing Exercise Name Hip AB Side bilateral Equipment Used Railing Reps/Minutes 10x 3 each Comments Much Extra time taken for proper posturing with ex. PT-OP-T Assessment and Plan Start: 05/23/21 18:50 Freq: Status: Active Protocol: Document 06/15/21 12:49 LRN (Rec: 06/15/21 13:33 LRN [id number]) Physical Therapy Assessment Goals Four Impairment Gait dysfunction Impairment R foot drop with occasional catching of toes. Short Term Goal (STG) Increase R hip/knee/ankle strength by 1/2 grade. STG Duration 07/10/21 Usp Goal (LTG) Legs not as tired at the end of the day with pt able to take her dog on a longer walk to end of block and back. LTG Duration 08/23/21 Three Impairment Decreased Balance Impairment Loss of balance without fall 2x/day in home. STG Duration 07/10/21 Necktie Operator Pockets And Pieces Goal (LTG) Improve balance with less reported LOB or no loss of balance with gait in home with more consistent use of AFO. LTG Duration 08/23/21 Two Impairment Decreased R LE strength Impairment Hip: Flexion 5/5 L, 4+/5 R; ER 3-/5 R, 2/5 L; IR 4+/5 bilaterally. Knee: Flex: 4/5 bilaterally; Ext: 3+/5 R, 5/5 L Ankle: Left: generally 5/5; Right: DF 2+/5, PF 3+/5, IV 3/ 5, EV 2/5. Short Term Goal (STG) Improve R ankle: generally 3+/ 5, R Knee: generally 4+/5; R hip AB 4/5 STG Duration 07/10/21 Usp Goal (LTG) Increase R LE strength with pt able to lift self into bed at end of day with use of R leg. LTG Duration 08/23/21 One Impairment HEP Short Term Goal (STG) Pt will be independent with a self care HEP of hip/knee/ ankle strengthening exercises. (05/30/21: HEP issued for hip and knee flex strengthening) (06/08/21: Strengthening: Added HEP hip AB; 06/13/21: Added hip Ext, 06/15/21: Added trunk rot) STG Duration 06/23/21 (06/15/21: Progressed) Necktie Operator Pockets And Pieces Goal (LTG) Pt will be independent with a self care HEP of core strengthening exercises. LTG Duration 08/23/21 Progress Towards Goals Progress Comments Progressed HEP: trunk rot strengthening. Assessment Summary Assessment Pt doing well with exercises, needing less cuing to perform and good recall. Physical Therapy Plan Frequency and Duration Frequency of Treatment 2x/Week Plan of Care Start Date 05/25/21 Plan of Care End Date 08/23/21 Next Visit Focus/Plan Next Note Type Treatment Note Next Visit Plan Review trunk rot on HEP and SB for recall; Add LE & core (R SB, UT L rot, & Ext) strengthening. Add ankle strengthening HEP, Tinetti, neuro-reeducation for balance. Pt goals received 05/30/21: Strengthen legs (R) & upper body; Improve stamina, Raise R leg to put on pants; Hips feel like in alignment after sitting (R hip feels like it is forward). Walk more confidently). Pt new reported goal: Be able to lift R leg for ease of dressing.
--- NOTE | 2021-06-19 09:50 | PT.OTN ---
Current Diagnoses Major depressive disorder, single episode, in full remission (06/19/21) Multiple sclerosis (06/19/21) Muscle weakness (generalized) (06/19/21) Age-related osteoporosis without current pathological fracture (06/19/21) Unspecified abnormalities of gait and mobility (06/19/21) Dizziness and giddiness (06/19/21) Physical Therapy Treatment Note PT-OP-A Visit Information Start: 05/23/21 18:50 Freq: Status: Active Protocol: Document 06/19/21 09:07 SP (Rec: 06/19/21 09:52 SP [id number]) Out-Patient Physical Therapy Visit Information Visit Information Visit Type Treatment Note Visit Start Time 09:07 Visit Stop Time 09:50 Total Visit Minutes 43 Visit Number 7 Number of DIRECTOR OF TEACHER EDUCATION Visits 1 Evaluation Information Evaluation Date 05/25/21 Precautions Precautions Catches self after LOB 2x/day when R foot catches the ground , Multiple Sclerosis, Osteoporosis, Dizziness, back pain. R handed. Has life alerts, PT-OP-B Current Condition Start: 05/23/21 18:50 Freq: Status: Active Protocol: Document 05/25/21 11:23 LRN (Rec: 05/25/21 12:06 LRN [id number]) Current Condition History of Current Condition Onset Date 17 yrs ago. Current Complaints Progressive weakness of RLE, since dx'd with MS; spasticity of lisbet LE R>L History of Current Condition Pt reports R foot drop and LE weakness due to MS with R foot dragging for past 10-15 yrs. Has had MS since ~1971, started with numb patches in the legs and clumsy. She has had an AFO for the R ankle foot for 5 yrs ago and wears it intermittently because she can only wear it with one pair of shoes. Pt did not wear the AFO today. States her primary care physician sent her to PT at her request due to having had PT several years ago with Rojelio Slaughter, PT. Neurologist, [facility] is planning on having her fit for another AFO on R LE that will help her to move the R LE (keep the foot straight and help to raise the foot). Pt reports she sometimes gets dizzy causing LOB without falls. Daughter calls her daily. Prior Treatments and Tests Sees chiropractor every other week. Future Testing and Treatments Planned Fit for RLE brace/AFO; company to contact her within 2-3 weeks. Treatment Goals Patient/Caregiver Goals Pt goal is to work on: *Balance, less LOB (no loss of balance), *Gait, legs not as tired at the end of the day, take longer walks with dog (walking to end of block) *Strengthen R LE to improve ability to lift self into bed at end of day, pushing withGait R leg. Prior Functional Status Baseline Function- Gait Gait with cane. Current Functional Impairments (Reported) Functional Limitations- ADL's Difficulty getting into bed at end of day. Functional Limitations- Mobility/Gait Walks 1/2 way to end of block to mailbox, then home Personal Factors Other Personal Factors That May Effect MS, Osteoporsis, dizziness. Therapy/Recovery PT-OP-C Subjective Start: 05/23/21 18:50 Freq: Status: Active Protocol: Document 06/19/21 09:07 SP (Rec: 06/19/21 09:52 SP [id number]) OP-PT Subjective Patient Comments Patient Comments Pt states doing her exercises every day, standing ones in am , seated ones in afternoon. I dont't know what to do with the white strap she gave me last tx. Pt stated didnt' get a TB, was I supposed to get one? Pt reported saw an rhit, [facility] in [place] and they want me to get a 1/4 shoe lift under my heel, new shoes from [email or web address] then go to a cobbler to add a 3/8 lateral shoe wedge to R shoe to better walk more stable alignment. Was not told need to follwo up with him ( Alex) again. PT-OP-E Functional Tests Start: 05/23/21 18:50 Freq: Status: Active Protocol: Document 05/30/21 11:23 LRN (Rec: 05/30/21 12:19 LRN [id number]) Functional Tests Timed Up and Go (TUG) Score 15 Comments Wearing R AFO, Cane on R side. TUG Impairment Rating 40 to <60% Impaired (Score 14- 15) PT-OP-G Mobility & Gait Start: 05/23/21 18:50 Freq: Status: Active Protocol: Document 05/25/21 11:23 LRN (Rec: 05/25/21 12:06 LRN [id number]) OP Gait Assessment Gait Gait Assistance Required: Independent Able to Maintain Weight Bearing Status Yes During Gait Assistive Devices Assistive Device Straight Cane Gait Deviations General Gait Pattern Decreased Stride Length, Decreased Feet Clearance, Lateral Trunk Lean,Narrow Based Gait Factors Limiting Gait Function Factors Limiting Gait Function Abnormal Tonal Influences, Decreased Activity Tolerance, Decreased Strength,Poor Balance Comments Gait Comments Gait with SPC on R side. Pt hold her R leg stiff with the Ankle in inversion. PT-OP-J Posture/Palpation/Skin Start: 05/23/21 18:50 Freq: Status: Active Protocol: Document 05/25/21 11:23 LRN (Rec: 05/25/21 12:06 LRN [id number]) Posture Evaluation Position Standing Head/C-Spine Posture Forward Head Shoulder Posture (L) Elevated Knee Posture (L) Excess Flexion Ankle/Foot Posture (R) Supinated,(R) Calcaneal Inversion Comments Posture Comments L leg long, holds knee flexed. When R knee is straight, the pelvis rotates right. Slight curve of back with apex on the left. PT-OP-M Strength Start: 05/23/21 18:50 Freq: Status: Active Protocol: Document 06/08/21 11:17 LRN (Rec: 06/08/21 12:16 LRN [id number]) Trunk Strength Trunk Manual Muscle Testing Testing Position Sitting Flexion 4+ Good+ Extension 4- Good- Rotation Left 5 Normal Rotation Right 3 Fair Lateral Flexion Left 4- Good- Lateral Flexion Right 3 Fair PT-OP-Q Treatments Start: 05/23/21 18:50 Freq: Status: Active Protocol: Document 06/19/21 09:07 SP (Rec: 06/19/21 09:52 SP [id number]) Therapeutic Exercises Sitting Exercises Trunk Ext Sitting Exercise Name Trunk Ext Resistance 10' from wall Equipment Used Red Sport Cord Reps/Minutes 10x 3 Knee flex Sitting Exercise Name Knee flex strengthening Side right Equipment Used Lev1 TB (2 strands) Reps/Minutes 10x, 7x Comments LLE stable on floor, full range can like the L. Trunk rot Sitting Exercise Name UB rotation Side bilateral Equipment Used Lev 1 TB Reps/Minutes 10x 3, bilaterally Comments Pt felt upper trunk rot, feels equal effort today STS Sitting Exercise Name Hands across chest and reaching forward (when tiring) Equipment Used 18 chair Reps/Minutes 2x5 Comments cued for slow eccentric controlled sit w/ knees apart. Hip Flex Sitting Exercise Name Hip flex w/core stable Side right Resistance AROM Reps/Minutes 10x 2 reps Comments Cuing for core awareness Gait Training Gait Activity Use of cane Device Used SPC, AFO on RLE Distance/Duration 40 ft x2 Treatment Focus RLE WB Comments R ankle PF tone, added 1/4 lift under shoe insert, top AFO support WB heel support, good feedback response. Pt's ankle still rolls due to lateral R heel wear, going to get new shoes soon online per orthist suggestion- see further info. Orthotic/Prosthetic Management and Training Treatment Details of Training extra time spent discussed rhit visit and modifications wants her to make: 1/4 lift in shoe under AFO to allow heel contact in WB, new sneakers online [employer] size 8.5- 9 to allow AFO proper length fit, find cobbler to adapt sole of shoe 3/8 lateral foot lift for ankle more pronated neutral support. DIRECTOR OF TEACHER EDUCATION concerned 3/8 lift to lateral foot in new shoe under AFO and if may affect knee alignment. Pt gave permission to call [employer] if pt understood what instructed with out follow up to be sure gait improved. DIRECTOR OF TEACHER EDUCATION provided 1/4 heel lift under foot shoe insert but top AFO with good heel WB contact support. PT-OP-T Assessment and Plan Start: 05/23/21 18:50 Freq: Status: Active Protocol: Document 06/19/21 09:07 SP (Rec: 06/19/21 09:52 SP [id number]) Physical Therapy Assessment Goals Four Impairment Gait dysfunction Impairment R foot drop with occasional catching of toes. Short Term Goal (STG) Increase R hip/knee/ankle strength by 1/2 grade. STG Duration 07/10/21 Retirement Goal (LTG) Legs not as tired at the end of the day with pt able to take her dog on a longer walk to end of block and back. LTG Duration 08/23/21 Three Impairment Decreased Balance Impairment Loss of balance without fall 2x/day in home. STG Duration 07/10/21 Retirement Goal (LTG) Improve balance with less reported LOB or no loss of balance with gait in home with more consistent use of AFO. LTG Duration 08/23/21 Two Impairment Decreased R LE strength Impairment Hip: Flexion 5/5 L, 4+/5 R; ER 3-/5 R, 2/5 L; IR 4+/5 bilaterally. Knee: Flex: 4/5 bilaterally; Ext: 3+/5 R, 5/5 L Ankle: Left: generally 5/5; Right: DF 2+/5, PF 3+/5, IV 3/ 5, EV 2/5. Short Term Goal (STG) Improve R ankle: generally 3+/ 5, R Knee: generally 4+/5; R hip AB 4/5 STG Duration 07/10/21 Retirement Goal (LTG) Increase R LE strength with pt able to lift self into bed at end of day with use of R leg. LTG Duration 08/23/21 One Impairment HEP Short Term Goal (STG) Pt will be independent with a self care HEP of hip/knee/ ankle strengthening exercises. (05/30/21: HEP issued for hip and knee flex strengthening) (06/08/21: Strengthening: Added HEP hip AB; 06/13/21: Added hip Ext, 06/15/21: Added trunk rot) STG Duration 06/23/21 (06/15/21: Progressed) Retirement Goal (LTG) Pt will be independent with a self care HEP of core strengthening exercises. LTG Duration 08/23/21 Assessment Summary Assessment Pt reported improved heel WB post given 1/4 heel lift in shoe. Good recall of HEP, cued lessen support of Ue support during eccentric hip flexion unless tiring support as needed. Extra time spent discussing orhotist recommend modifications to do on own. Pt gave permission for DIRECTOR OF TEACHER EDUCATION to call [employer] for concerns 09/12 lateral sole modification to new shoes when get, could possibly affect R knee alignment into valgus cave and was told no schueduled follow up needed. DIRECTOR OF TEACHER EDUCATION will follow up with admin note after phone converstation completed. Physical Therapy Plan Frequency and Duration Frequency of Treatment 2x/Week Plan of Care Start Date 05/25/21 Plan of Care End Date 08/23/21 Therapeutic Interventions Therapeutic Interventions Home Exercise Program, Neuromuscular Re-education, Patient/Caregiver Education, Self-Care/Home Management, Therapeutic Activities, Therapeutic Exercises Modalities Cold Pack/Ice Massage,Hot Packs Other Referrals/Consults Referrals/Consults Recommended Vestibular Rehabilitation. Next Visit Focus/Plan Next Note Type Treatment Note Next Visit Plan Review HEP: trunk rot on HEP and SB for recall, LE ex seated. POC: Add LE & core (R SB, UT L rot, & Ext) strengthening. Add ankle strengthening HEP, Tinetti, neuro-reeducation for balance. Pt goals received 05/30/21: Strengthen legs (R) & upper body; Improve stamina, Raise R leg to put on pants; Hips feel like in alignment after sitting (R hip feels like it is forward). Walk more confidently). Pt new reported goal: Be able to lift R leg for ease of dressing.
--- NOTE | 2021-06-20 13:10 | PT-OP ANOTE ---
COFFEE MACHINE TECHNICIAN called [facility] with patient permission, spoke with Alex Contreras (staff that worked with [facility]) regarding instructions given to pt at her appt with him on 06/14/21 for adapts to complete herself for further AFO R ankle alignment support. COFFEE MACHINE TECHNICIAN provided feedback pt spoke of during her 06/19 PT appt. Pt was unsure where to get recommendations of the 1/4 heel lift, a cobbler for 3/8 lateral wedge to new shoe modifications on R. Alex stated recommended 1/4 heel lift to be placed under AFO at heel, and lateral 3/8 heel wedge added to shoe sole to assist ankle support and stability. COFFEE MACHINE TECHNICIAN stated pt is lacking DF and so during tx provided cork 1/4 heel lift under shoe sole but top AFO with improved WB support through heel. Alex verbalized pleased with support. COFFEE MACHINE TECHNICIAN told Alex that concerned with having [facility] adapting her new sneakers with lateral heel support due to could potentially cause genu varum without seeing her gait with AFO and new sneakers. COFFEE MACHINE TECHNICIAN discussed with Alex, recommended to pt once gets new sneakers and add 1/4 heel lift will see what her gait looks like before progressing further permanent lateral support of sole sneaker as recommended by him and if need further lateral heel alignment support for neutral ankle positioning, should be on AFO not under AFO with Alex in agreement but the current fiberglass AFO can not be modified for lateral support added, would need to be casted and modifications added for proper alignment support. COFFEE MACHINE TECHNICIAN thanked Alex for his feedback and input, will follow up with pt regarding our conversation and continue to assess best course of action and support needed for improving gait and balance going forward.
--- NOTE | 2021-06-22 09:46 | PT.OTN ---
Current Diagnoses Major depressive disorder, single episode, in full remission (06/22/21) Multiple sclerosis (06/22/21) Muscle weakness (generalized) (06/22/21) Age-related osteoporosis without current pathological fracture (06/22/21) Unspecified abnormalities of gait and mobility (06/22/21) Dizziness and giddiness (06/22/21) Physical Therapy Treatment Note PT-OP-A Visit Information Start: 05/23/21 18:50 Freq: Status: Active Protocol: Document 06/22/21 09:05 SP (Rec: 06/22/21 09:49 SP [id number]) Out-Patient Physical Therapy Visit Information Visit Information Visit Type Treatment Note Visit Start Time 09:05 Visit Stop Time 09:46 Total Visit Minutes 41 Visit Number 8 Number of DEMOLITION SPECIALIST Visits 2 Evaluation Information Evaluation Date 05/25/21 Precautions Precautions Catches self after LOB 2x/day when R foot catches the ground , Multiple Sclerosis, Osteoporosis, Dizziness, back pain. R handed. Has life alerts, PT-OP-B Current Condition Start: 05/23/21 18:50 Freq: Status: Active Protocol: Document 05/25/21 11:23 LRN (Rec: 05/25/21 12:06 LRN [id number]) Current Condition History of Current Condition Onset Date 17 yrs ago. Current Complaints Progressive weakness of RLE, since dx'd with MS; spasticity of lisbet LE R>L History of Current Condition Pt reports R foot drop and LE weakness due to MS with R foot dragging for past 10-15 yrs. Has had MS since ~1971, started with numb patches in the legs and clumsy. She has had an AFO for the R ankle foot for 5 yrs ago and wears it intermittently because she can only wear it with one pair of shoes. Pt did not wear the AFO today. States her primary care physician sent her to PT at her request due to having had PT several years ago with Rojelio Slaugther, PT. Neurologist, [facility] is planning on having her fit for another AFO on R LE that will help her to move the R LE (keep the foot straight and help to raise the foot). Pt reports she sometimes gets dizzy causing LOB without falls. Daughter calls her daily. Prior Treatments and Tests Sees chiropractor every other week. Future Testing and Treatments Planned Fit for RLE brace/AFO; company to contact her within 2-3 weeks. Treatment Goals Patient/Caregiver Goals Pt goal is to work on: *Balance, less LOB (no loss of balance), *Gait, legs not as tired at the end of the day, take longer walks with dog (walking to end of block) *Strengthen R LE to improve ability to lift self into bed at end of day, pushing withGait R leg. Prior Functional Status Baseline Function- Gait Gait with cane. Current Functional Impairments (Reported) Functional Limitations- ADL's Difficulty getting into bed at end of day. Functional Limitations- Mobility/Gait Walks 1/2 way to end of block to mailbox, then home Personal Factors Other Personal Factors That May Effect MS, Osteoporsis, dizziness. Therapy/Recovery PT-OP-C Subjective Start: 05/23/21 18:50 Freq: Status: Active Protocol: Document 06/22/21 09:05 SP (Rec: 06/22/21 09:49 SP [id number]) OP-PT Subjective Patient Comments Patient Comments Pt reported was challenged with how to use the band for HEP at home and how anchor, wants to review today. She states she will be getting new sneakers shoes this weekend, probably from [employer] due to the online suggestion at [employer] didn't seem to have one she thinks will work for her. PT-OP-E Functional Tests Start: 05/23/21 18:50 Freq: Status: Active Protocol: Document 05/30/21 11:23 LRN (Rec: 05/30/21 12:19 LRN [id number]) Functional Tests Timed Up and Go (TUG) Score 15 Comments Wearing R AFO, Cane on R side. TUG Impairment Rating 40 to <60% Impaired (Score 14- 15) PT-OP-G Mobility & Gait Start: 05/23/21 18:50 Freq: Status: Active Protocol: Document 05/25/21 11:23 LRN (Rec: 05/25/21 12:06 LRN [id number]) OP Gait Assessment Gait Gait Assistance Required: Independent Able to Maintain Weight Bearing Status Yes During Gait Assistive Devices Assistive Device Straight Cane Gait Deviations General Gait Pattern Decreased Stride Length, Decreased Feet Clearance, Lateral Trunk Lean,Narrow Based Gait Factors Limiting Gait Function Factors Limiting Gait Function Abnormal Tonal Influences, Decreased Activity Tolerance, Decreased Strength,Poor Balance Comments Gait Comments Gait with SPC on R side. Pt hold her R leg stiff with the Ankle in inversion. PT-OP-J Posture/Palpation/Skin Start: 05/23/21 18:50 Freq: Status: Active Protocol: Document 05/25/21 11:23 LRN (Rec: 05/25/21 12:06 LRN [id number]) Posture Evaluation Position Standing Head/C-Spine Posture Forward Head Shoulder Posture (L) Elevated Knee Posture (L) Excess Flexion Ankle/Foot Posture (R) Supinated,(R) Calcaneal Inversion Comments Posture Comments L leg long, holds knee flexed. When R knee is straight, the pelvis rotates right. Slight curve of back with apex on the left. PT-OP-M Strength Start: 05/23/21 18:50 Freq: Status: Active Protocol: Document 06/08/21 11:17 LRN (Rec: 06/08/21 12:16 LRN [id number]) Trunk Strength Trunk Manual Muscle Testing Testing Position Sitting Flexion 4+ Good+ Extension 4- Good- Rotation Left 5 Normal Rotation Right 3 Fair Lateral Flexion Left 4- Good- Lateral Flexion Right 3 Fair PT-OP-Q Treatments Start: 05/23/21 18:50 Freq: Status: Active Protocol: Document 06/22/21 09:05 SP (Rec: 06/22/21 09:49 SP [id number]) Therapeutic Exercises Sitting Exercises ankle EV, PF Sitting Exercise Name EV & PF w/ TB, Eccentric DF during PF for now Side right Resistance TB #1 Equipment Used added to HEP Reps/Minutes 2x10 Comments extra time for set up and form Trunk rot Sitting Exercise Name UB rotation Side bilateral Equipment Used Lev 1 TB Reps/Minutes 10x 3, bilaterally Comments time spent for proper set up and core fac. Standing Exercises calf stretch Standing Exercise Name lunge positioning hands on table/ counter Side right Resistance review self HEP Reps/Minutes 30s x2 Comments good form and ankle alignment Hip Ext Standing Exercise Name Hip Ext (R>L) Side bilateral Equipment Used // bars Reps/Minutes 10x 3 L, 10x 2 R. Comments Cuing of posture and performance of ex. Rest needed after ex, fatigue RLE Hip AB Standing Exercise Name Hip AB Side bilateral Equipment Used Railing Reps/Minutes 10x 3 each Comments Much Extra time taken for proper posturing with ex. Self-Care/Home Management Treatment Education Patient Education Home Exercise Program Other Education Intiated seated R ankle EV, PF w/ TB and R gastroc/ soleus stretch assist ankle flexibility and stability. Extra time spent set up for TS core rotation HEP seated with good understanding and formed alignment. PT-OP-T Assessment and Plan Start: 05/23/21 18:50 Freq: Status: Active Protocol: Document 06/22/21 09:05 SP (Rec: 06/22/21 09:49 SP [id number]) Physical Therapy Assessment Goals Four Impairment Gait dysfunction Impairment R foot drop with occasional catching of toes. Short Term Goal (STG) Increase R hip/knee/ankle strength by 1/2 grade. STG Duration 07/10/21 Residential Direct Support Professional Goal (LTG) Legs not as tired at the end of the day with pt able to take her dog on a longer walk to end of block and back. LTG Duration 08/23/21 Three Impairment Decreased Balance Impairment Loss of balance without fall 2x/day in home. STG Duration 07/10/21 Penitentiary Goal (LTG) Improve balance with less reported LOB or no loss of balance with gait in home with more consistent use of AFO. LTG Duration 08/23/21 Two Impairment Decreased R LE strength Impairment Hip: Flexion 5/5 L, 4+/5 R; ER 3-/5 R, 2/5 L; IR 4+/5 bilaterally. Knee: Flex: 4/5 bilaterally; Ext: 3+/5 R, 5/5 L Ankle: Left: generally 5/5; Right: DF 2+/5, PF 3+/5, IV 3/ 5, EV 2/5. Short Term Goal (STG) Improve R ankle: generally 3+/ 5, R Knee: generally 4+/5; R hip AB 4/5 STG Duration 07/10/21 Residential Direct Support Professional Goal (LTG) Increase R LE strength with pt able to lift self into bed at end of day with use of R leg. LTG Duration 08/23/21 One Impairment HEP Short Term Goal (STG) Pt will be independent with a self care HEP of hip/knee/ ankle strengthening exercises. (05/30/21: HEP issued for hip and knee flex strengthening) (06/08/21: Strengthening: Added HEP hip AB; 06/13/21: Added hip Ext, 06/15/21: Added trunk rot) STG Duration 06/23/21 (06/15/21: Progressed) Residential Direct Support Professional Goal (LTG) Pt will be independent with a self care HEP of core strengthening exercises. LTG Duration 08/23/21 Assessment Summary Assessment Pt challenged on gait and balance with amount of R shoe lateral calcanous wear even with AFO donned with noted hyperextension of R knee. Pt reports will be getting new sneakers over the weekend and bring next tx. Tx focused on initiated R ankle strengthening identified in POC. Pt responded well to HEP review and intiated ankle concentric and eccentric strengthening of R ankle, cues for set up, ankle alignment and slow eccentric pacing DFs muscle facilitation demonstration. Will progress application of HEP and gait next tx for progressing functional strengthening and balance with pt verbalized agreement. Physical Therapy Plan Frequency and Duration Frequency of Treatment 2x/Week Plan of Care Start Date 05/25/21 Plan of Care End Date 08/23/21 Therapeutic Interventions Therapeutic Interventions Home Exercise Program, Neuromuscular Re-education, Patient/Caregiver Education, Self-Care/Home Management, Therapeutic Activities, Therapeutic Exercises Modalities Cold Pack/Ice Massage,Hot Packs Next Visit Focus/Plan Next Note Type Treatment Note Next Visit Plan Review HEP: trunk rot on HEP and SB for recall, LE ex seated. POC: Add LE & core (R SB, UT L rot, & Ext) strengthening. Assess Tinetti, neuro-reeducation for balance. Pt goals received 05/30/21: Strengthen legs (R) & upper body; Improve stamina, Raise R leg to put on pants; Hips feel like in alignment after sitting (R hip feels like it is forward). Walk more confidently). Pt new reported goal: Be able to lift R leg for ease of dressing.
--- NOTE | 2021-06-27 14:35 | PT.OTN ---
Current Diagnoses Major depressive disorder, single episode, in full remission (06/27/21) Multiple sclerosis (06/27/21) Muscle weakness (generalized) (06/27/21) Age-related osteoporosis without current pathological fracture (06/27/21) Unspecified abnormalities of gait and mobility (06/27/21) Dizziness and giddiness (06/27/21) Physical Therapy Treatment Note PT-OP-A Visit Information Start: 05/23/21 18:50 Freq: Status: Active Protocol: Document 06/27/21 13:48 SP (Rec: 06/27/21 15:15 SP [id number]) Out-Patient Physical Therapy Visit Information Visit Information Visit Type Treatment Note Visit Start Time 13:48 Visit Stop Time 14:35 Total Visit Minutes 47 Visit Number 9 Number of TWILL CUTTER Visits 3 Evaluation Information Evaluation Date 05/25/21 Precautions Precautions Multiple Sclerosis, Osteoporosis, Dizziness, back pain. R handed. Has life alerts. PT-OP-B Current Condition Start: 05/23/21 18:50 Freq: Status: Active Protocol: Document 05/25/21 11:23 LRN (Rec: 05/25/21 12:06 LRN [id number]) Current Condition History of Current Condition Onset Date 17 yrs ago. Current Complaints Progressive weakness of RLE, since dx'd with MS; spasticity of lisbet LE R>L History of Current Condition Pt reports R foot drop and LE weakness due to MS with R foot dragging for past 10-15 yrs. Has had MS since ~1971, started with numb patches in the legs and clumsy. She has had an AFO for the R ankle foot for 5 yrs ago and wears it intermittently because she can only wear it with one pair of shoes. Pt did not wear the AFO today. States her primary care physician sent her to PT at her request due to having had PT several years ago with Rojelio Slaughter, PT. Neurologist, Natalya Stewart is planning on having her fit for another AFO on R LE that will help her to move the R LE (keep the foot straight and help to raise the foot). Pt reports she sometimes gets dizzy causing LOB without falls. Daughter calls her daily. Prior Treatments and Tests Sees chiropractor every other week. Future Testing and Treatments Planned Fit for RLE brace/AFO; company to contact her within 2-3 weeks. Treatment Goals Patient/Caregiver Goals Pt goal is to work on: *Balance, less LOB (no loss of balance), *Gait, legs not as tired at the end of the day, take longer walks with dog (walking to end of block) *Strengthen R LE to improve ability to lift self into bed at end of day, pushing withGait R leg. Prior Functional Status Baseline Function- Gait Gait with cane. Current Functional Impairments (Reported) Functional Limitations- ADL's Difficulty getting into bed at end of day. Functional Limitations- Mobility/Gait Walks 1/2 way to end of block to mailbox, then home Personal Factors Other Personal Factors That May Effect MS, Osteoporsis, dizziness. Therapy/Recovery PT-OP-C Subjective Start: 05/23/21 18:50 Freq: Status: Active Protocol: Document 06/27/21 13:48 SP (Rec: 06/27/21 15:15 SP [id number]) OP-PT Subjective Patient Comments Patient Comments Pt arrived with new New Balance sneakers from [employer] size 9.5 but usually wear 8.5. She states her R big toe feels to have more room/ comfortable, feels more secure and balanced walking now. PT-OP-E Functional Tests Start: 05/23/21 18:50 Freq: Status: Active Protocol: Document 05/30/21 11:23 LRN (Rec: 05/30/21 12:19 LRN [id number]) Functional Tests Timed Up and Go (TUG) Score 15 Comments Wearing R AFO, Cane on R side. TUG Impairment Rating 40 to <60% Impaired (Score 14- 15) PT-OP-G Mobility & Gait Start: 05/23/21 18:50 Freq: Status: Active Protocol: Document 05/25/21 11:23 LRN (Rec: 05/25/21 12:06 LRN [id number]) OP Gait Assessment Gait Gait Assistance Required: Independent Able to Maintain Weight Bearing Status Yes During Gait Assistive Devices Assistive Device Straight Cane Gait Deviations General Gait Pattern Decreased Stride Length, Decreased Feet Clearance, Lateral Trunk Lean,Narrow Based Gait Factors Limiting Gait Function Factors Limiting Gait Function Abnormal Tonal Influences, Decreased Activity Tolerance, Decreased Strength,Poor Balance Comments Gait Comments Gait with SPC on R side. Pt hold her R leg stiff with the Ankle in inversion. PT-OP-J Posture/Palpation/Skin Start: 05/23/21 18:50 Freq: Status: Active Protocol: Document 05/25/21 11:23 LRN (Rec: 05/25/21 12:06 LRN [id number]) Posture Evaluation Position Standing Head/C-Spine Posture Forward Head Shoulder Posture (L) Elevated Knee Posture (L) Excess Flexion Ankle/Foot Posture (R) Supinated,(R) Calcaneal Inversion Comments Posture Comments L leg long, holds knee flexed. When R knee is straight, the pelvis rotates right. Slight curve of back with apex on the left. PT-OP-M Strength Start: 05/23/21 18:50 Freq: Status: Active Protocol: Document 06/08/21 11:17 LRN (Rec: 06/08/21 12:16 LRN [id number]) Trunk Strength Trunk Manual Muscle Testing Testing Position Sitting Flexion 4+ Good+ Extension 4- Good- Rotation Left 5 Normal Rotation Right 3 Fair Lateral Flexion Left 4- Good- Lateral Flexion Right 3 Fair PT-OP-Q Treatments Start: 05/23/21 18:50 Freq: Status: Active Protocol: Document 06/27/21 13:48 SP (Rec: 06/27/21 15:15 SP [id number]) Cardio Equipment Recumbent Bicycle Duration (Minutes) 5 Resistance 3 Seat Position 2 Other LE only, cued R hip ER netural awareness Gait Training Gait Activity pre gait wt shift Description over RLE f/b Device Used SPC Level of Assistance CGA- 5%A Surface firm Distance/Duration in front mirror Treatment Focus hip abd and glut max facilitation Use of cane Device Used SPC, AFO on RLE Surface firm Distance/Duration 180 ft Treatment Focus RLE WB Comments R ankle PF tone, added 1/4 lift under shoe insert, top AFO support WB heel support, good feedback response. Pt's ankle still rolls due to lateral R heel wear, going to get new shoes soon online per orthist suggestion- see further info. Self-Care/Home Management Treatment Education Patient Education Body Mechanics,Posture,Safety Other Education Continued ducation on mechanics R ankle, knee, hip during gait. Weakness R glut abd/max cued fac during gait, hyperextension R knee and supination demonstrated will initiate next tx lateral R heel built up wedge/ lift with welcoming feedback. Pt understand continued ankle eccentric DF and EV strengthening to support corrected positioning. PT-OP-T Assessment and Plan Start: 05/23/21 18:50 Freq: Status: Active Protocol: Document 06/27/21 13:48 SP (Rec: 06/27/21 15:15 SP [id number]) Physical Therapy Assessment Goals Four Impairment Gait dysfunction Impairment R foot drop with occasional catching of toes. Short Term Goal (STG) Increase R hip/knee/ankle strength by 1/2 grade. STG Duration 07/10/21 Billet Shearer Goal (LTG) Legs not as tired at the end of the day with pt able to take her dog on a longer walk to end of block and back. LTG Duration 08/23/21 Three Impairment Decreased Balance Impairment Loss of balance without fall 2x/day in home. STG Duration 07/10/21 Long-Term Goal (LTG) Improve balance with less reported LOB or no loss of balance with gait in home with more consistent use of AFO. 06/27/21: improved balanced gait, less R hip lateral ankle / hip deviations with new sneakers 9.5 (1 whole size larger). LTG Duration 08/23/21 Two Impairment Decreased R LE strength Impairment Hip: Flexion 5/5 L, 4+/5 R; ER 3-/5 R, 2/5 L; IR 4+/5 bilaterally. Knee: Flex: 4/5 bilaterally; Ext: 3+/5 R, 5/5 L Ankle: Left: generally 5/5; Right: DF 2+/5, PF 3+/5, IV 3/ 5, EV 2/5. Short Term Goal (STG) Improve R ankle: generally 3+/ 5, R Knee: generally 4+/5; R hip AB 4/5 STG Duration 07/10/21 Long-Term Goal (LTG) Increase R LE strength with pt able to lift self into bed at end of day with use of R leg. LTG Duration 08/23/21 One Impairment HEP Short Term Goal (STG) Pt will be independent with a self care HEP of hip/knee/ ankle strengthening exercises. (05/30/21: HEP issued for hip and knee flex strengthening) (06/08/21: Strengthening: Added HEP hip AB; 06/13/21: Added hip Ext, 06/15/21: Added trunk rot) 06/22/21: added R ankle TB PF/ Eccentric DF, EV. STG Duration 06/23/21 (06/22/21: Progressed) Billet Shearer Goal (LTG) Pt will be independent with a self care HEP of core strengthening exercises. LTG Duration 08/23/21 Assessment Summary Assessment Initiated recumbent bike with good feedback, muscle working. Majority of tx spent with cues for quality gait phases heel strike into midstance glut max and hip abd facilitation under trunk, wider ARMANDO for stability with good understanding. Pt able to maintain improved level hip alignment with gait approx 10 ft before tires using SPC during improves with cuing better in mirrror using FWW for quality with education use FWW at home to allow stability BUE contact support. Pt improved self awareness in trunk/LE and stability post education and suggestion use of fWW for quality gait phase support, will get FWW back out of attic storage. Physical Therapy Plan Frequency and Duration Frequency of Treatment 2x/Week Plan of Care Start Date 05/25/21 Plan of Care End Date 08/23/21 Therapeutic Interventions Therapeutic Interventions Home Exercise Program, Neuromuscular Re-education, Patient/Caregiver Education, Self-Care/Home Management, Therapeutic Activities, Therapeutic Exercises Modalities Cold Pack/Ice Massage,Hot Packs Next Visit Focus/Plan Next Note Type Treatment Note Next Visit Plan Next tx: Tinettbhupendra, next tx lateral R heel built up wedge/ lift support, add clamshell again TB hooklying core. Review: HEP TB trunk rotation/ SB/Ext, ankle TB. POC: Assess Tinetti, neuro- reeducation for balance. Pt goals received 05/30/21: Strengthen legs (R) & upper body; Improve stamina, Raise R leg to put on pants; Hips feel like in alignment after sitting (R hip feels like it is forward). Walk more confidently). Pt new reported goal: Be able to lift R leg for ease of dressing.
--- NOTE | 2021-07-11 11:27 | PT.OTN ---
Current Diagnoses Major depressive disorder, single episode, in full remission (07/11/21) Multiple sclerosis (07/11/21) Muscle weakness (generalized) (07/11/21) Age-related osteoporosis without current pathological fracture (07/11/21) Unspecified abnormalities of gait and mobility (07/11/21) Dizziness and giddiness (07/11/21) Physical Therapy Treatment Note PT-OP-A Visit Information Start: 05/23/21 18:50 Freq: Status: Active Protocol: Document 07/11/21 10:33 SP (Rec: 07/11/21 12:13 SP [id number]) Out-Patient Physical Therapy Visit Information Visit Information Visit Type Treatment Note Visit Start Time 10:33 Visit Stop Time 11:27 Total Visit Minutes 54 Visit Number 10 Number of DAIRY FARM OPERATOR Visits 4 Evaluation Information Evaluation Date 05/25/21 Precautions Precautions Multiple Sclerosis, Osteoporosis, Dizziness, back pain. R handed. Has life alerts. PT-OP-B Current Condition Start: 05/23/21 18:50 Freq: Status: Active Protocol: Document 05/25/21 11:23 LRN (Rec: 05/25/21 12:06 LRN [id number]) Current Condition History of Current Condition Onset Date 17 yrs ago. Current Complaints Progressive weakness of RLE, since dx'd with MS; spasticity of lisbet LE R>L History of Current Condition Pt reports R foot drop and LE weakness due to MS with R foot dragging for past 10-15 yrs. Has had MS since ~1971, started with numb patches in the legs and clumsy. She has had an AFO for the R ankle foot for 5 yrs ago and wears it intermittently because she can only wear it with one pair of shoes. Pt did not wear the AFO today. States her primary care physician sent her to PT at her request due to having had PT several years ago with Rojelio Slaughter, PT. Neurologist, Natalya Stewart is planning on having her fit for another AFO on R LE that will help her to move the R LE (keep the foot straight and help to raise the foot). Pt reports she sometimes gets dizzy causing LOB without falls. Daughter calls her daily. Prior Treatments and Tests Sees chiropractor every other week. Future Testing and Treatments Planned Fit for RLE brace/AFO; company to contact her within 2-3 weeks. Treatment Goals Patient/Caregiver Goals Pt goal is to work on: *Balance, less LOB (no loss of balance), *Gait, legs not as tired at the end of the day, take longer walks with dog (walking to end of block) *Strengthen R LE to improve ability to lift self into bed at end of day, pushing withGait R leg. Prior Functional Status Baseline Function- Gait Gait with cane. Current Functional Impairments (Reported) Functional Limitations- ADL's Difficulty getting into bed at end of day. Functional Limitations- Mobility/Gait Walks 1/[address] way to end of block to mailbox, then home Personal Factors Other Personal Factors That May Effect MS, Osteoporsis, dizziness. Therapy/Recovery PT-OP-C Subjective Start: 05/23/21 18:50 Freq: Status: Active Protocol: Document 07/11/21 10:33 SP (Rec: 07/11/21 12:13 SP [id number]) OP-PT Subjective Patient Comments Patient Comments Pt stated purchased more shoes to give options to wear with AFO and the 1/4 heel lift has helped better balance with gait, R knee not locking out as hard like it use to. Pt reports seeing some improvement in her walking with new shoes and exercises given for home. Pt reported had 2 falls since last visit: driveway and kitchen and both times foot caught ground, but didn't know which foot when asked. Still wants to work on balance and gait to improve walking and reduce risk for falls and can continue HEP at home to help build strength. PT-OP-E Functional Tests Start: 05/23/21 18:50 Freq: Status: Active Protocol: Document 05/30/21 11:23 LRN (Rec: 05/30/21 12:19 LRN [id number]) Functional Tests Timed Up and Go (TUG) Score 15 Comments Wearing R AFO, Cane on R side. TUG Impairment Rating 40 to <60% Impaired (Score 14- 15) PT-OP-G Mobility & Gait Start: 05/23/21 18:50 Freq: Status: Active Protocol: Document 05/25/21 11:23 LRN (Rec: 05/25/21 12:06 LRN [id number]) OP Gait Assessment Gait Gait Assistance Required: Independent Able to Maintain Weight Bearing Status Yes During Gait Assistive Devices Assistive Device Straight Cane Gait Deviations General Gait Pattern Decreased Stride Length, Decreased Feet Clearance, Lateral Trunk Lean,Narrow Based Gait Factors Limiting Gait Function Factors Limiting Gait Function Abnormal Tonal Influences, Decreased Activity Tolerance, Decreased Strength,Poor Balance Comments Gait Comments Gait with SPC on R side. Pt hold her R leg stiff with the Ankle in inversion. PT-OP-J Posture/Palpation/Skin Start: 05/23/21 18:50 Freq: Status: Active Protocol: Document 05/25/21 11:23 LRN (Rec: 05/25/21 12:06 LRN [id number]) Posture Evaluation Position Standing Head/C-Spine Posture Forward Head Shoulder Posture (L) Elevated Knee Posture (L) Excess Flexion Ankle/Foot Posture (R) Supinated,(R) Calcaneal Inversion Comments Posture Comments L leg long, holds knee flexed. When R knee is straight, the pelvis rotates right. Slight curve of back with apex on the left. PT-OP-M Strength Start: 05/23/21 18:50 Freq: Status: Active Protocol: Document 06/08/21 11:17 LRN (Rec: 06/08/21 12:16 LRN [id number]) Trunk Strength Trunk Manual Muscle Testing Testing Position Sitting Flexion 4+ Good+ Extension 4- Good- Rotation Left 5 Normal Rotation Right 3 Fair Lateral Flexion Left 4- Good- Lateral Flexion Right 3 Fair PT-OP-Q Treatments Start: 05/23/21 18:50 Freq: Status: Active Protocol: Document 07/11/21 10:33 SP (Rec: 07/11/21 12:13 SP [id number]) Cardio Equipment Recumbent Bicycle Duration (Minutes) 6 Resistance 5 Seat Position 3 Other LE only, 30-35 RPM, occasional cues R hip ER netural awareness Gym Equipment Shuttle Recovery Unilateral Squats Details cued lateral knee with toes Resistance 25# LLE, 12 # RLE alternating Shuttle Recovery Platform Stable Reps/Time 2x10 - without AFO Bilateral Squats Details cued knee with toes Resistance 50#> 37# Shuttle Recovery Platform Stable Reps/Time x10 each resistance- without AFO Therapeutic Exercises Standing Exercises Hip Ext Standing Exercise Name Hip Ext (R>L)- to weak stance on R hip abd to perform on L- cued RLE only Side right Resistance DC L LE ext for now Equipment Used rail Reps/Minutes x3 L (difficulty maintail level pelvis on R), 10x 2 R. Hip AB Standing Exercise Name Hip AB- reviewed HEP Side bilateral Equipment Used Railing Reps/Minutes 10x2 each Comments extra time cued: RLE WB medial instep for improved hip abd stability Gait Training Gait Activity 2MWT Description antalgic gait Device Used SPC in LUE Level of Assistance SBA- CGA Surface firm Distance/Duration 132 ft in 2 min but walked further after. Treatment Focus foot clearance, equal stance time, core stability Comments Cued R>L foot clearance, R knee flexion during swing phase, core facil. pre gait wt shift Description stance over RLE f/b wt shift> forward gait Device Used SPC Level of Assistance CGA> SBA Surface firm Distance/Duration in front mirror, progressed 20 ft x2 Treatment Focus hip abd and glut max facilitation Comments cued tall posture, increase ARMANDO, WB into medial R foot improve hip abd facilitation Use of cane Description antalgic gait, R hip abd and medial ankle weakness Device Used SPC, AFO on RLE Level of Assistance SBA Surface firm Distance/Duration 80 ft Treatment Focus RLE WB Comments cued R>L foot clearance, R knee flexion with tall posture Self-Care/Home Management Treatment Education Patient Education Fall Risk,Posture,Safety Other Education Extra time spent quality hip ABD RLE and stationary stance RLE alignment hip abd facilitation during LLE movement. DAIRY FARM OPERATOR time spent discussion on recommending aircraft mechanic further assessment for lateral R heel support neutral alignment medially to improve stabaility stance and gait. DAIRY FARM OPERATOR got recommendations from PT Christi [facility] Jemima Chowdhury have sent past pts with good results. PT-OP-T Assessment and Plan Start: 05/23/21 18:50 Freq: Status: Active Protocol: Document 07/11/21 10:33 SP (Rec: 07/11/21 12:13 SP [id number]) Physical Therapy Assessment Goals Four Impairment Gait dysfunction Impairment R foot drop with occasional catching of toes. Short Term Goal (STG) Increase R hip/knee/ankle strength by 1/2 grade. STG Duration 07/10/21 Skilled Nursing Goal (LTG) Legs not as tired at the end of the day with pt able to take her dog on a longer walk to end of block and back. 07/11/20: Pt only able to walk dog out to go to bathroom with cold bad weather, pre bad weather only able walk dog 3 drive[address] and back, uses SPC in LUE. PLOF reported during good weather days was able to walk approx total 1/4 mile. LTG Duration 08/23/21 (07/11/20: progressing) Three Impairment Decreased Balance Impairment Loss of balance without fall 2x/day in home. STG Duration 07/10/21 Museum Service Scheduler Goal (LTG) Improve balance with less reported LOB or no loss of balance with gait in home with more consistent use of AFO. 06/27/21: improved balanced gait, less R hip lateral ankle / hip deviations with new sneakers 9.5 (1 whole size larger). 07/11/20: pt reported had 2 falls (1 on driveway, 1 in kitchen) due to toe catching floor but not sure which foot caught the floor since last tx . Not sure why, maybe due to new sneakers 1 whole size bigger at 9.5 for AFO fit, vs 8.5. LTG Duration 08/23/21 (07/11/20 updated) Two Impairment Decreased R LE strength Impairment Hip: Flexion 5/5 L, 4+/5 R; ER 3-/5 R, 2/5 L; IR 4+/5 bilaterally. Knee: Flex: 4/5 bilaterally; Ext: 3+/5 R, 5/5 L Ankle: Left: generally 5/5; Right: DF 2+/5, PF 3+/5, IV 3/ 5, EV 2/5. Short Term Goal (STG) Improve R ankle: generally 3+/ 5, R Knee: generally 4+/5; R hip AB 4/5 07/11/20: HEP R ankle EV, DF TB #1. STG Duration 07/10/21 Skilled Nursing Goal (LTG) Increase R LE strength with pt able to lift self into bed at end of day with use of R leg. 07/11/20: GOAL MET: pt reports is able to lift RLE into bed now without UE support. LTG Duration GOAL MET 07/11/20 One Impairment HEP Short Term Goal (STG) Pt will be independent with a self care HEP of hip/knee/ ankle strengthening exercises. (05/30/21: HEP issued for hip and knee flex strengthening, STS without UE support) (12/2/21: Strengthening: Added HEP hip AB; 06/13/21: Added hip Ext. ABD 06/15/21: Added trunk rot) 06/22/21: added R ankle TB PF/ Eccentric DF, EV. STG Duration 06/23/21 (06/22/21: Progressed) Skilled Nursing Goal (LTG) Pt will be independent with a self care HEP of core strengthening exercises. LTG Duration 08/23/21 Progress Towards Goals Progress Towards Goals Progressing Toward Goals Progress Comments Met Goal #2: pt reports is able to lift RLE into bed now without UE support. Progressing STG #2. Assessment Summary Assessment Pt improved foot clearance and R hip abd faciltation post extra time spent walking front mirror for visual self corrections and cuing for tall posture, medial R instep/ hip abd facilitation and knee flexion for foot clearance success. Improved quality stability over RLE midstance gait phase leaving. Physical Therapy Plan Frequency and Duration Frequency of Treatment 2x/Week Plan of Care Start Date 05/25/21 Plan of Care End Date 08/23/21 Therapeutic Interventions Therapeutic Interventions Home Exercise Program, Neuromuscular Re-education, Patient/Caregiver Education, Self-Care/Home Management, Therapeutic Activities, Therapeutic Exercises Modalities Cold Pack/Ice Massage,Hot Packs Other Referrals/Consults Referrals/Consults Recommended Chief Crna: lateral ankle support assist alignment and balance. DAIRY FARM OPERATOR recommended [facility] per PT Christi/ PT Digna suggestions post last tx, pt in agreement would be helpful. Next Visit Focus/Plan Next Note Type Treatment Note Next Visit Plan Recheck HEP: standing abd HEP. Next tx: Dariana, next tx lateral R heel built up wedge/ lift support vs referral to aircraft mechanic, add clamshell again TB hooklying or seated core. Review: HEP TB trunk rotation/ SB/Ext, ankle TB. POC: Assess Tinetti, neuro- reeducation for balance. Pt goals received 05/30/21: Strengthen legs (R) & upper body; Improve stamina, Raise R leg to put on pants; Hips feel like in alignment after sitting (R hip feels like it is forward). Walk more confidently). Pt new reported goal: Be able to lift R leg for ease of dressing.
--- NOTE | 2021-07-13 14:22 | PT-OP ANOTE ---
Pt cancelled due to inclement weather
--- NOTE | 2021-07-18 17:33 | PT.OTN ---
Current Diagnoses Major depressive disorder, single episode, in full remission (07/18/21) Multiple sclerosis (07/18/21) Muscle weakness (generalized) (07/18/21) Age-related osteoporosis without current pathological fracture (07/18/21) Unspecified abnormalities of gait and mobility (07/18/21) Dizziness and giddiness (07/18/21) Physical Therapy Treatment Note PT-OP-A Visit Information Start: 05/23/21 18:50 Freq: Status: Active Protocol: Document 07/18/21 12:51 LRN (Rec: 07/18/21 13:37 LRN [id number]) Out-Patient Physical Therapy Visit Information Visit Information Visit Type Progress Note Visit Start Time 12:51 Visit Stop Time 13:33 Total Visit Minutes 42 Visit Number 11 Evaluation Information Evaluation Date 05/25/21 Precautions Precautions Multiple Sclerosis, Osteoporosis, Dizziness, back pain. R handed. Has life alerts. PT-OP-B Current Condition Start: 05/23/21 18:50 Freq: Status: Active Protocol: Document 05/25/21 11:23 LRN (Rec: 05/25/21 12:06 LRN [id number]) Current Condition History of Current Condition Onset Date 17 yrs ago. Current Complaints Progressive weakness of RLE, since dx'd with MS; spasticity of lisbet LE R>L History of Current Condition Pt reports R foot drop and LE weakness due to MS with R foot dragging for past 10-15 yrs. Has had MS since ~1971, started with numb patches in the legs and clumsy. She has had an AFO for the R ankle foot for 5 yrs ago and wears it intermittently because she can only wear it with one pair of shoes. Pt did not wear the AFO today. States her primary care physician sent her to PT at her request due to having had PT several years ago with Rojelio Slaughter, PT. Neurologist, Natalya Stewart is planning on having her fit for another AFO on R LE that will help her to move the R LE (keep the foot straight and help to raise the foot). Pt reports she sometimes gets dizzy causing LOB without falls. Daughter calls her daily. Prior Treatments and Tests Sees chiropractor every other week. Future Testing and Treatments Planned Fit for RLE brace/AFO; company to contact her within 2-3 weeks. Treatment Goals Patient/Caregiver Goals Pt goal is to work on: *Balance, less LOB (no loss of balance), *Gait, legs not as tired at the end of the day, take longer walks with dog (walking to end of block) *Strengthen R LE to improve ability to lift self into bed at end of day, pushing withGait R leg. Prior Functional Status Baseline Function- Gait Gait with cane. Current Functional Impairments (Reported) Functional Limitations- ADL's Difficulty getting into bed at end of day. Functional Limitations- Mobility/Gait Walks 1/[address] to end of block to mailbox, then home Personal Factors Other Personal Factors That May Effect MS, Osteoporsis, dizziness. Therapy/Recovery PT-OP-C Subjective Start: 05/23/21 18:50 Freq: Status: Active Protocol: Document 07/18/21 12:51 LRN (Rec: 07/18/21 13:37 LRN [id number]) OP-PT Subjective Patient Comments Patient Comments Notes strength in R leg and can lift it up (March position ) higher and for a longer time . More conscious about walking with training. Much better transferring up/down from chair easier without having to hold on or push with arms. PT-OP-E Functional Tests Start: 05/23/21 18:50 Freq: Status: Active Protocol: Document 07/18/21 12:51 LRN (Rec: 07/18/21 13:37 LRN [id number]) Functional Tests Timed Up and Go (TUG) Score 22 Comments Use of GB/SPC/R AFO TUG Impairment Rating 100% Impaired (Score 20) PT-OP-G Mobility & Gait Start: 05/23/21 18:50 Freq: Status: Active Protocol: Document 05/25/21 11:23 LRN (Rec: 05/25/21 12:06 LRN [id number]) OP Gait Assessment Gait Gait Assistance Required: Independent Able to Maintain Weight Bearing Status Yes During Gait Assistive Devices Assistive Device Straight Cane Gait Deviations General Gait Pattern Decreased Stride Length, Decreased Feet Clearance, Lateral Trunk Lean,Narrow Based Gait Factors Limiting Gait Function Factors Limiting Gait Function Abnormal Tonal Influences, Decreased Activity Tolerance, Decreased Strength,Poor Balance Comments Gait Comments Gait with SPC on R side. Pt hold her R leg stiff with the Ankle in inversion. PT-OP-J Posture/Palpation/Skin Start: 05/23/21 18:50 Freq: Status: Active Protocol: Document 05/25/21 11:23 LRN (Rec: 05/25/21 12:06 LRN [id number]) Posture Evaluation Position Standing Head/C-Spine Posture Forward Head Shoulder Posture (L) Elevated Knee Posture (L) Excess Flexion Ankle/Foot Posture (R) Supinated,(R) Calcaneal Inversion Comments Posture Comments L leg long, holds knee flexed. When R knee is straight, the pelvis rotates right. Slight curve of back with apex on the left. PT-OP-K Range of Motion Start: 05/23/21 18:50 Freq: Status: Active Protocol: Document 07/18/21 12:51 LRN (Rec: 07/18/21 13:37 LRN [id number]) Ankle and Foot Goniometric Range of Motion Ankle and Foot Left Active Ankle/Foot ROM WFL Yes Testing Position Sitting Dorsiflexion with Knee Flexed 7 Inversion 30 Eversion 30 Right Active Ankle/Foot ROM WFL No Testing Position Sitting Inversion 35 Eversion 10 Comments Ankle DF with knee flexed is lacking 5 deg's to neutral. PT-OP-M Strength Start: 05/23/21 18:50 Freq: Status: Active Protocol: Document 07/18/21 12:51 LRN (Rec: 07/18/21 13:37 LRN [id number]) Hip Strength Hip Manual Muscle Testing Right Flexion (L2) 5 Normal Extension (S1) 3 Fair Abduction 3- Fair- Adduction 4+ Good+ External Rotation 3 Fair Internal Rotation 3+ Fair+ Left Flexion (L2) 5 Normal Extension (S1) 5 Normal Abduction 5 Normal Adduction 5 Normal External Rotation 5 Normal Internal Rotation 4+ Good+ Knee Strength Knee Manual Muscle Testing Right Flexion (S2) 3+ Fair+ Extension (L3) 5 Normal Left Flexion (S2) 5 Normal Extension (L3) 5 Normal Ankle/Foot Strength Ankle and Foot Manual Muscle Testing Right Dorsiflexion (L4) 3- Fair- Plantarflexion (S1) 5 Normal Inversion 5 Normal Eversion (S1) 3- Fair- PT-OP-Q Treatments Start: 05/23/21 18:50 Freq: Status: Active Protocol: Document 07/18/21 12:51 LRN (Rec: 07/18/21 13:37 LRN [id number]) Therapeutic Exercises Standing Exercises Hip AB Standing Exercise Name Hip AB- reviewed HEP Side bilateral Equipment Used Railing Reps/Minutes 12x2 each Comments extra time cued: RLE WB medial instep for improved hip abd stability PT-OP-T Assessment and Plan Start: 05/23/21 18:50 Freq: Status: Active Protocol: Document 07/18/21 12:51 LRN (Rec: 07/18/21 13:37 LRN [id number]) Physical Therapy Assessment Rehab Potential Rehabilitation Potential Good Evaluation Complexity Number of Personal Factors/Comorbidities 3 or More Number of Body Systems Impaired 4 or More Clinical Presentation at Evaluation Evolving Impairments Impairments Activity Tolerance,Balance, Gait,Strength,Transfers Goals Six Impairment Decreased functional strength Impairment Pt has difficulty raising R leg to put leg in pants. Radarman Goal (LTG) Pt will be able to lift R leg (in sitting) for ease of dressing (to put leg in pants) . LTG Duration 10/16/21 Five Impairment Decreased stamina Short Term Goal (STG) Pt will be able to tolerate 10 minutes of upper body strengthening during a 38 miniute therapy session. STG Duration 08/17/21 Intermediate Goal (LTG) Pt will have greater confidence in her walking as demonstrated by improved TUG score of 14 or less. LTG Duration 10/16/21 Four Impairment Gait dysfunction Impairment R foot drop with occasional catching of toes. Short Term Goal (STG) Increase R hip/knee/ankle strength by 1/2 grade. (07/18/21: NOT MET for: R Hip ER/IR; R Knee flex) STG Duration 08/17/21 (07/18/21: Goal mostly met) Radarman Goal (LTG) Legs not as tired at the end of the day with pt able to take her dog on a longer walk to end of block and back. 07/11/20: Pt only able to walk dog out to go to bathroom with cold bad weather, pre bad weather only able walk dog 3 drive[address] and back, uses SPC in LUE. PLOF reported during good weather days was able to walk approx total 1/4 mile. LTG Duration 10/16/21 (07/11/20: progressing) Three Impairment Decreased Balance Impairment Loss of balance without fall 2x/day in home. Intermediate Goal (LTG) Improve balance with less reported LOB or no loss of balance with gait in home with more consistent use of AFO. 06/27/21: improved balanced gait, less R hip lateral ankle / hip deviations with new sneakers 9.5 (1 whole size larger). 07/11/20: pt reported had 2 falls (1 [address], 1 in kitchen) due to toe catching floor but not sure which foot caught the floor since last tx . Not sure why, maybe due to new sneakers 1 whole size bigger at 9.5 for AFO fit, vs 8.5. (07/18/21: No falls the past week, occasional LOB without fall) LTG Duration 10/16/21 (07/18/21: Progressing) Two Impairment Decreased R LE strength Impairment Hip: Flexion 5/5 L, 4+/5 R; ER 3-/5 R, 2/5 L; IR 4+/5 bilaterally. Knee: Flex: 4/5 bilaterally; Ext: 3+/5 R, 5/5 L Ankle: Left: generally 5/5; Right: DF 2+/5, PF 3+/5, IV 3/ 5, EV 2/5. Short Term Goal (STG) Improve R ankle: generally 3+/ 5, R Knee: generally 4+/5; R hip AB 4/5 (07/11/20: HEP R ankle EV, DF TB #1). (07/18/21: R ankle: PF/IV is 5 /5 & DF/EV is 3-/5; R knee: Flex 3+/5, Ext 5/5; Hip AB 3-/ 5), STG Duration 08/17/21 (07/18/21: Improved) Radarman Goal (LTG) Increase R LE strength with pt able to lift self into bed at end of day with use of R leg. 07/11/20: GOAL MET: pt reports is able to lift RLE into bed now without UE support. (07/18/21: Able to boost self into bed 75% of the time.) LTG Duration GOAL MET 07/11/20 One Impairment HEP Impairment Pt goals received 05/30/21: Strengthen legs (R) & upper body; Hips feel like in alignment after sitting (R hip feels like it is forward). Short Term Goal (STG) Pt will be independent with a self care HEP of hip/knee/ ankle strengthening exercises. (05/30/21: HEP issued for hip and knee flex strengthening, STS without UE support) (06/08/21: Strengthening: Added HEP hip AB; 06/13/21: Added hip Ext. ABD 06/15/21: Added trunk rot) 06/22/21: added R ankle TB PF/ Eccentric DF, EV. (07/18/21: Verbal review of HEP of hip/knee/ankle ex's) STG Duration 06/23/21 (07/18/21: MET GOAL) Radarman Goal (LTG) Pt will be independent with a self care HEP of core strengthening exercises. (06/19/21: Core strengthening ex HEP issued) LTG Duration 10/16/21 (06/19/21: Progressed) Progress Towards Goals Progress Comments STG #1 Was MET. Improved ability to boost self into bed, 75% of the time with R LE. Decreased LOB at home with wearing of R AFO. Assessment Summary Assessment Pt has shown slow progress as expected. She is very concientious with her HEP and does ex's as much or more than expected, resulting in good progress. TUG Score is 20 ( was initially 15), worsened, but she if more stable with gait at a slower pace. Further therapy to improve balance and safety with gait is recommended. Overall her R LE strength has improved by typically 1/2 grade in most areas. Right Hip strength improved (Flexion 5/5 L, 5/5 R ; ER 3/5 R, 2/5 L; IR 3+/5 R, 4+/5 L), R Knee strength improved (Flex : 3+/5 R, 4/5 L; Ext: 5/5 R, 5 /5 L) and R Ankle strength improved (Left: generally 5/5; Right: DF 3-/5, PF 5/5, IV 5/ 5, EV 3-/5). Pt will benefit from continued skilled physical therapy for R LE & core strengthening, ankle ROM, and balance/gait training. Physical Therapy Plan Frequency and Duration Frequency of Treatment 2x/Week Plan of Care Start Date 07/18/21 Plan of Care End Date 10/16/21 Therapeutic Interventions Therapeutic Interventions Home Exercise Program, Neuromuscular Re-education, Patient/Caregiver Education, Self-Care/Home Management, Therapeutic Activities, Therapeutic Exercises Modalities Cold Pack/Ice Massage,Hot Packs Next Visit Focus/Plan Next Note Type Treatment Note Next Visit Plan Next tx: Dariana, next tx lateral R heel built up wedge/ lift support vs referral to imagery analyst, add clamshell again TB hooklying or seated core. Review: HEP TB trunk rotation/ SB/Ext, ankle TB and gastroc stretch. POC: Assess Tinetti, focus on neuro-reeducation for balance and improving stability/safety with gait. Strengthening: R Hip ER/IR; R Knee flex, ankle DF with improved mobility.
--- NOTE | 2021-07-20 14:02 | PT.OTN ---
Current Diagnoses Major depressive disorder, single episode, in full remission (07/20/21) Multiple sclerosis (07/20/21) Muscle weakness (generalized) (07/20/21) Age-related osteoporosis without current pathological fracture (07/20/21) Unspecified abnormalities of gait and mobility (07/20/21) Dizziness and giddiness (07/20/21) Physical Therapy Treatment Note PT-OP-A Visit Information Start: 05/23/21 18:50 Freq: Status: Active Protocol: Document 07/20/21 10:40 LRN (Rec: 07/20/21 12:17 LRN [id number]) Out-Patient Physical Therapy Visit Information Visit Information Visit Type Treatment Note Visit Note 1 after PN Visit Start Time 10:40 Visit Stop Time 11:23 Total Visit Minutes 43 Visit Number 12 Evaluation Information Evaluation Date 05/25/21 Precautions Precautions Multiple Sclerosis, Osteoporosis, Dizziness, back pain. R handed. Has life alerts. PT-OP-B Current Condition Start: 05/23/21 18:50 Freq: Status: Active Protocol: Document 05/25/21 11:23 LRN (Rec: 05/25/21 12:06 LRN [id number]) Current Condition History of Current Condition Onset Date 17 yrs ago. Current Complaints Progressive weakness of RLE, since dx'd with MS; spasticity of lisbet LE R>L History of Current Condition Pt reports R foot drop and LE weakness due to MS with R foot dragging for past 10-15 yrs. Has had MS since ~1971, started with numb patches in the legs and clumsy. She has had an AFO for the R ankle foot for 5 yrs ago and wears it intermittently because she can only wear it with one pair of shoes. Pt did not wear the AFO today. States her primary care physician sent her to PT at her request due to having had PT several years ago with [facility]. Neurologist, Natalya Stewart is planning on having her fit for another AFO on R LE that will help her to move the R LE (keep the foot straight and help to raise the foot). Pt reports she sometimes gets dizzy causing LOB without falls. Daughter calls her daily. Prior Treatments and Tests Sees chiropractor every other week. Future Testing and Treatments Planned Fit for RLE brace/AFO; company to contact her within 2-3 weeks. Treatment Goals Patient/Caregiver Goals Pt goal is to work on: *Balance, less LOB (no loss of balance), *Gait, legs not as tired at the end of the day, take longer walks with dog (walking to end of block) *Strengthen R LE to improve ability to lift self into bed at end of day, pushing withGait R leg. Prior Functional Status Baseline Function- Gait Gait with cane. Current Functional Impairments (Reported) Functional Limitations- ADL's Difficulty getting into bed at end of day. Functional Limitations- Mobility/Gait Walks 1/[address] to end of block to mailbox, then home Personal Factors Other Personal Factors That May Effect MS, Osteoporsis, dizziness. Therapy/Recovery PT-OP-C Subjective Start: 05/23/21 18:50 Freq: Status: Active Protocol: Document 07/20/21 10:40 LRN (Rec: 07/20/21 12:17 LRN [id number]) OP-PT Subjective Patient Comments Patient Comments States her R foot used to catch on the ground all the time, but doesn't anymore. Patient Reported Progress Improving PT-OP-D Balance Start: 05/23/21 18:50 Freq: Status: Active Protocol: Document 07/20/21 10:40 LRN (Rec: 07/20/21 12:17 LRN [id number]) Tinetti Balance Assessment Sitting Balance Sitting Balance Steady, safe Arising from Chair Ability to Arise Able, uses arms to help Attempts to Arise Arises on 1st attempt Standing Balance Immediate Standing Balance Steady w/o support Standing Balance Steady, wide stance Nudged Response Steady Standing with Eyes Closed Steady Turning Step Pattern Turning 360 Degrees Discontinuous steps Stability Turning 360 Degrees Steady Sitting Down Sitting Down Safe, steady Gait and Step Initiation of Gait No hesitancy Right Foot Step Length Does pass stance foot Right Foot Step Height Does not clear floor Left Foot Step Length Does pass stance foot Left Foot Step Height Completely clears floor Step Description Step Symmetry Step length not equal Step Continuity Steps appear continuous Gait Description Path Description Mild/moderate deviation Trunk Description Marked sway or uses aide Walking Stance Heels together Scoring and Interpretation Tinetti Composite Score (points) 20 Interpretation of Scores High risk for falls(< 19) Tinetti Impairment Rating from Composite 20 to <40% Impaired (Score 17- Score 22) PT-OP-E Functional Tests Start: 05/23/21 18:50 Freq: Status: Active Protocol: Document 07/18/21 12:51 LRN (Rec: 07/18/21 13:37 LRN [id number]) Functional Tests Timed Up and Go (TUG) Score 22 Comments Use of GB/SPC/R AFO TUG Impairment Rating 100% Impaired (Score 20) PT-OP-G Mobility & Gait Start: 05/23/21 18:50 Freq: Status: Active Protocol: Document 05/25/21 11:23 LRN (Rec: 05/25/21 12:06 LRN [id number]) OP Gait Assessment Gait Gait Assistance Required: Independent Able to Maintain Weight Bearing Status Yes During Gait Assistive Devices Assistive Device Straight Cane Gait Deviations General Gait Pattern Decreased Stride Length, Decreased Feet Clearance, Lateral Trunk Lean,Narrow Based Gait Factors Limiting Gait Function Factors Limiting Gait Function Abnormal Tonal Influences, Decreased Activity Tolerance, Decreased Strength,Poor Balance Comments Gait Comments Gait with SPC on R side. Pt hold her R leg stiff with the Ankle in inversion. PT-OP-J Posture/Palpation/Skin Start: 05/23/21 18:50 Freq: Status: Active Protocol: Document 05/25/21 11:23 LRN (Rec: 05/25/21 12:06 LRN [id number]) Posture Evaluation Position Standing Head/C-Spine Posture Forward Head Shoulder Posture (L) Elevated Knee Posture (L) Excess Flexion Ankle/Foot Posture (R) Supinated,(R) Calcaneal Inversion Comments Posture Comments L leg long, holds knee flexed. When R knee is straight, the pelvis rotates right. Slight curve of back with apex on the left. PT-OP-K Range of Motion Start: 05/23/21 18:50 Freq: Status: Active Protocol: Document 07/18/21 12:51 LRN (Rec: 07/18/21 13:37 LRN [id number]) Ankle and Foot Goniometric Range of Motion Ankle and Foot Left Active Ankle/Foot ROM WFL Yes Testing Position Sitting Dorsiflexion with Knee Flexed 7 Inversion 30 Eversion 30 Right Active Ankle/Foot ROM WFL No Testing Position Sitting Inversion 35 Eversion 10 Comments Ankle DF with knee flexed is lacking 5 deg's to neutral. PT-OP-M Strength Start: 05/23/21 18:50 Freq: Status: Active Protocol: Document 07/18/21 12:51 LRN (Rec: 07/18/21 13:37 LRN [id number]) Hip Strength Hip Manual Muscle Testing Right Flexion (L2) 5 Normal Extension (S1) 3 Fair Abduction 3- Fair- Adduction 4+ Good+ External Rotation 3 Fair Internal Rotation 3+ Fair+ Left Flexion (L2) 5 Normal Extension (S1) 5 Normal Abduction 5 Normal Adduction 5 Normal External Rotation 5 Normal Internal Rotation 4+ Good+ Knee Strength Knee Manual Muscle Testing Right Flexion (S2) 3+ Fair+ Extension (L3) 5 Normal Left Flexion (S2) 5 Normal Extension (L3) 5 Normal Ankle/Foot Strength Ankle and Foot Manual Muscle Testing Right Dorsiflexion (L4) 3- Fair- Plantarflexion (S1) 5 Normal Inversion 5 Normal Eversion (S1) 3- Fair- PT-OP-Q Treatments Start: 05/23/21 18:50 Freq: Status: Active Protocol: Document 07/20/21 10:40 LRN (Rec: 07/20/21 12:17 LRN [id number]) Therapeutic Exercises Sitting Exercises Trunk Ext Sitting Exercise Name Trunk Ext Equipment Used Lev 3 TB Reps/Minutes 18 x Comments Extra time for set up for max tolerated resistance Knee flex Sitting Exercise Name Knee flex strengthening Side right Equipment Used Lev3 TB (2 strands) Reps/Minutes 15x Comments Extra time for set up of max tolerated resistance, determined L3 too strong Trunk rot Sitting Exercise Name UB rotation Side bilateral Equipment Used Lev 3 TB Reps/Minutes 15x 3, bilaterally Comments time spent for proper set up, phy & v cuing needed. STS Sitting Exercise Name Hands across chest and reaching forward (when tiring) Equipment Used 18 chair Reps/Minutes 2x10 Comments Assessed safety with transfers Gait Training Gait Activity Use of cane Description antalgic gait, R hip abd and medial ankle weakness Device Used SPC, AFO on RLE Level of Assistance SBA Surface firm Distance/Duration 80 ft Treatment Focus RLE WB Comments cued R>L stepping out for greater ARMANDO, foot clearance, R knee flexion Neuro Re-Education Treatment Balance Activities Standing w/nudges Details Nudges in sternum, shoulders AP & PA Surface Level Reps/Duration 8' Comments v cuing and stance training. Standing EO Details Standing w/EO Surface Level Reps/Duration 1+' turning Details 360 deg turn Surface firm, level Reps/Duration 3' Comments Done without assistive device. Self-Care/Home Management Treatment Education Patient Education Home Exercise Program Activities Self-Care/Home Management Activities Issued & reviewed HEP sitting knee flex strengthening with TBand. Issued Lev 3 TB for trunk strengthening. PT-OP-T Assessment and Plan Start: 05/23/21 18:50 Freq: Status: Active Protocol: Document 07/20/21 10:40 LRN (Rec: 07/20/21 12:17 LRN [id number]) Physical Therapy Assessment Goals Six Impairment Decreased functional strength Impairment Pt has difficulty raising R leg to put leg in pants. Usp Goal (LTG) Pt will be able to lift R leg (in sitting) for ease of dressing (to put leg in pants) . LTG Duration 10/16/21 Five Impairment Decreased stamina Short Term Goal (STG) Pt will be able to tolerate 10 minutes of upper body strengthening during a 38 miniute therapy session. STG Duration 08/17/21 Usp Goal (LTG) Pt will have greater confidence in her walking as demonstrated by improved TUG score of 14 or less. (07/18/21: TUG 22 secs w/AFO/ cane. 05/30/21: TUG 15 w/ AFO/cane). LTG Duration 10/16/21 Four Impairment Gait dysfunction Impairment R foot drop with occasional catching of toes. Short Term Goal (STG) Increase R hip/knee/ankle strength by 1/2 grade. (07/18/21: NOT MET for: R Hip ER/IR; R Knee flex) STG Duration 08/17/21 (07/18/21: Goal mostly met) Usp Goal (LTG) Legs not as tired at the end of the day with pt able to take her dog on a longer walk to end of block and back. 07/11/20: Pt only able to walk dog out to go to bathroom with cold bad weather, pre bad weather only able walk dog 3 drive[address] and back, uses SPC in LUE. PLOF reported during good weather days was able to walk approx total 1/4 mile. LTG Duration 10/16/21 (07/11/20: progressing) Three Impairment Decreased Balance Impairment Loss of balance without fall 2x/day in home. Language Interpreter Goal (LTG) Improve balance with less reported LOB or no loss of balance with gait in home with more consistent use of AFO. 06/27/21: improved balanced gait, less R hip lateral ankle / hip deviations with new sneakers 9.5 (1 whole size larger). 07/11/20: pt reported had 2 falls ([address], 1 in kitchen) due to toe catching floor but not sure which foot caught the floor since last tx . Not sure why, maybe due to new sneakers 1 whole size bigger at 9.5 for AFO fit, vs 8.5. (07/18/21: No falls the past week, occasional LOB without fall) LTG Duration 10/16/21 (07/18/21: Progressing) Two Impairment Decreased R LE strength Impairment Hip: Flexion 5/5 L, 4+/5 R; ER 3-/5 R, 2/5 L; IR 4+/5 bilaterally. Knee: Flex: 4/5 bilaterally; Ext: 3+/5 R, 5/5 L Ankle: Left: generally 5/5; Right: DF 2+/5, PF 3+/5, IV 3/ 5, EV 2/5. Short Term Goal (STG) Improve R ankle: generally 3+/ 5, R Knee: generally 4+/5; R hip AB 4/5 (07/11/20: HEP R ankle EV, DF TB #1). (07/18/21: R ankle: PF/IV is 5 /5 & DF/EV is 3-/5; R knee: Flex 3+/5, Ext 5/5; Hip AB 3-/ 5), STG Duration 08/17/21 (07/18/21: Improved) Language Interpreter Goal (LTG) Increase R LE strength with pt able to lift self into bed at end of day with use of R leg. 07/11/20: GOAL MET: pt reports is able to lift RLE into bed now without UE support. (07/18/21: Able to boost self into bed 75% of the time.) LTG Duration GOAL MET 07/11/20 One Impairment HEP Impairment Pt goals received 05/30/21: Strengthen legs (R) & upper body; Hips feel like in alignment after sitting (R hip feels like it is forward). Short Term Goal (STG) Pt will be independent with a self care HEP of hip/knee/ ankle strengthening exercises. (05/30/21: HEP issued for hip and knee flex strengthening, STS without UE support) (06/08/21: Strengthening: Added HEP hip AB; 06/13/21: Added hip Ext. ABD 06/15/21: Added trunk rot) 06/22/21: added R ankle TB PF/ Eccentric DF, EV. (07/18/21: Verbal review of HEP of hip/knee/ankle ex's) STG Duration 06/23/21 (07/18/21: MET GOAL) Language Interpreter Goal (LTG) Pt will be independent with a self care HEP of core strengthening exercises. (06/19/21: Core strengthening ex HEP issued) (07/20/21: Added HEP trunk flex) LTG Duration 10/16/21 (07/20/21: Progressed) Progress Towards Goals Progress Comments Progressed HEP Assessment Summary Assessment Per Tinetti score of 20, pt is at high risk of falling (20- 40% impaired). Previous TUG test's of 22 and 15 (with cane ) indicating 100% and 40-60% impaired, respectively. Pt is doing trunk TB ext & rot ex well, but needed greater resistance; therefore Lev 3 TB was issued. Physical Therapy Plan Frequency and Duration Frequency of Treatment 2x/Week Plan of Care Start Date 07/18/21 Plan of Care End Date 10/16/21 Next Visit Focus/Plan Next Note Type Treatment Note Next Visit Plan Next tx: lateral R heel built up wedge/lift support vs referral to city sanitarian, Add clamshell again TB hooklying or seated core. Review: HEP TB SB, ankle TB and gastroc stretch. Strengthening: R Hip ER/IR; R Knee flex, ankle DF with improved mobility. POC: focus on neuro- reeducation for balance and improving stability/safety with gait, improving stamina & functional strength of RLE.
--- NOTE | 2021-07-25 11:20 | PT.OTN ---
Addendum entered and electronically signed by Magdalena Gregory PTA 07/25/21 11:50: JAVA WEBSPH[employer] DEVELOPER recommended as her pharmacist stated, call physician regarding nightmares feedback since starting a new medication for urinary issues. Original Note: Current Diagnoses Major depressive disorder, single episode, in full remission (07/25/21) Multiple sclerosis (07/25/21) Muscle weakness (generalized) (07/25/21) Age-related osteoporosis without current pathological fracture (07/25/21) Unspecified abnormalities of gait and mobility (07/25/21) Dizziness and giddiness (07/25/21) Physical Therapy Treatment Note PT-OP-A Visit Information Start: 05/23/21 18:50 Freq: Status: Active Protocol: Document 07/25/21 10:39 SP (Rec: 07/25/21 11:49 SP [id number]) Out-Patient Physical Therapy Visit Information Visit Information Visit Type Treatment Note Visit Note 2 after PN Visit Start Time 10:35 Visit Stop Time 11:20 Total Visit Minutes 45 Visit Number 13 Number of JAVA WEBSPHERE DEVELOPER Visits 1 Evaluation Information Evaluation Date 05/25/21 Precautions Precautions Multiple Sclerosis, Osteoporosis, Dizziness, back pain. R handed. Has life alerts. PT-OP-B Current Condition Start: 05/23/21 18:50 Freq: Status: Active Protocol: Document 05/25/21 11:23 LRN (Rec: 05/25/21 12:06 LRN [id number]) Current Condition History of Current Condition Onset Date 17 yrs ago. Current Complaints Progressive weakness of RLE, since dx'd with MS; spasticity of lisbet LE R>L History of Current Condition Pt reports R foot drop and LE weakness due to MS with R foot dragging for past 10-15 yrs. Has had MS since ~1971, started with numb patches in the legs and clumsy. She has had an AFO for the R ankle foot for 5 yrs ago and wears it intermittently because she can only wear it with one pair of shoes. Pt did not wear the AFO today. States her primary care physician sent her to PT at her request due to having had PT several years ago with [facility]. [facility], [facility] is [facility] on having her fit for another AFO on R LE that will help her to move the R LE (keep the foot straight and help to raise the foot). Pt reports she sometimes gets dizzy causing LOB without falls. Daughter calls her daily. Prior Treatments and Tests Sees chiropractor every other week. Future Testing and Treatments Planned Fit for RLE brace/AFO; company to contact her within 2-3 weeks. Treatment Goals Patient/Caregiver Goals Pt goal is to work on: *Balance, less LOB (no loss of balance), *Gait, legs not as tired at the end of the day, take longer walks with dog (walking to end of block) *Strengthen R LE to improve ability to lift self into bed at end of day, pushing withGait R leg. Prior Functional Status Baseline Function- Gait Gait with cane. Current Functional Impairments (Reported) Functional Limitations- ADL's Difficulty getting into bed at end of day. Functional Limitations- Mobility/Gait Walks 1/[address] to end of block to mailbox, then home Personal Factors Other Personal Factors That May Effect MS, Osteoporsis, dizziness. Therapy/Recovery PT-OP-C Subjective Start: 05/23/21 18:50 Freq: Status: Active Protocol: Document 07/25/21 10:39 SP (Rec: 07/25/21 11:49 SP [id number]) OP-PT Subjective Patient Comments Patient Comments Pt reports has a new pair shoes today and notes heel slides up/down when walks but finds is helpful on ankle moving. Does have 1/4 heel lift top AFO and under shoe sole feels is sufficient height. Pt stated put on a different med used for 3-4 days for urinary issues and giving her nightmares and little off balance when gets up first thing. Pt stated called the pharmacy and they instructed to call physician for awareness on safety with verbal understanding. Pt would like to get better at balance and gait to feel more confident walking. Patient Reported Progress Improving PT-OP-D Balance Start: 05/23/21 18:50 Freq: Status: Active Protocol: Document 07/20/21 10:40 LRN (Rec: 07/20/21 12:17 LRN [id number]) Tinetti Balance Assessment Sitting Balance Sitting Balance Steady, safe Arising from Chair Ability to Arise Able, uses arms to help Attempts to Arise Arises on 1st attempt Standing Balance Immediate Standing Balance Steady w/o support Standing Balance Steady, wide stance Nudged Response Steady Standing with Eyes Closed Steady Turning Step Pattern Turning 360 Degrees Discontinuous steps Stability Turning 360 Degrees Steady Sitting Down Sitting Down Safe, steady Gait and Step Initiation of Gait No hesitancy Right Foot Step Length Does pass stance foot Right Foot Step Height Does not clear floor Left Foot Step Length Does pass stance foot Left Foot Step Height Completely clears floor Step Description Step Symmetry Step length not equal Step Continuity Steps appear continuous Gait Description Path Description Mild/moderate deviation Trunk Description Marked sway or uses aide Walking Stance Heels together Scoring and Interpretation Tinetti Composite Score (points) 20 Interpretation of Scores High risk for falls(< 19) Tinetti Impairment Rating from Composite 20 to <40% Impaired (Score 17- Score 22) PT-OP-E Functional Tests Start: 05/23/21 18:50 Freq: Status: Active Protocol: Document 07/18/21 12:51 LRN (Rec: 07/18/21 13:37 LRN [id number]) Functional Tests Timed Up and Go (TUG) Score 22 Comments Use of GB/SPC/R AFO TUG Impairment Rating 100% Impaired (Score 20) PT-OP-G Mobility & Gait Start: 05/23/21 18:50 Freq: Status: Active Protocol: Document 05/25/21 11:23 LRN (Rec: 05/25/21 12:06 LRN [id number]) OP Gait Assessment Gait Gait Assistance Required: Independent Able to Maintain Weight Bearing Status Yes During Gait Assistive Devices Assistive Device Straight Cane Gait Deviations General Gait Pattern Decreased Stride Length, Decreased Feet Clearance, Lateral Trunk Lean,Narrow Based Gait Factors Limiting Gait Function Factors Limiting Gait Function Abnormal Tonal Influences, Decreased Activity Tolerance, Decreased Strength,Poor Balance Comments Gait Comments Gait with SPC on R side. Pt hold her R leg stiff with the Ankle in inversion. PT-OP-J Posture/Palpation/Skin Start: 05/23/21 18:50 Freq: Status: Active Protocol: Document 05/25/21 11:23 LRN (Rec: 05/25/21 12:06 LRN [id number]) Posture Evaluation Position Standing Head/C-Spine Posture Forward Head Shoulder Posture (L) Elevated Knee Posture (L) Excess Flexion Ankle/Foot Posture (R) Supinated,(R) Calcaneal Inversion Comments Posture Comments L leg long, holds knee flexed. When R knee is straight, the pelvis rotates right. Slight curve of back with apex on the left. PT-OP-K Range of Motion Start: 05/23/21 18:50 Freq: Status: Active Protocol: Document 07/18/21 12:51 LRN (Rec: 07/18/21 13:37 LRN [id number]) Ankle and Foot Goniometric Range of Motion Ankle and Foot Left Active Ankle/Foot ROM WFL Yes Testing Position Sitting Dorsiflexion with Knee Flexed 7 Inversion 30 Eversion 30 Right Active Ankle/Foot ROM WFL No Testing Position Sitting Inversion 35 Eversion 10 Comments Ankle DF with knee flexed is lacking 5 deg's to neutral. PT-OP-M Strength Start: 05/23/21 18:50 Freq: Status: Active Protocol: Document 07/18/21 12:51 LRN (Rec: 07/18/21 13:37 LRN [id number]) Hip Strength Hip Manual Muscle Testing Right Flexion (L2) 5 Normal Extension (S1) 3 Fair Abduction 3- Fair- Adduction 4+ Good+ External Rotation 3 Fair Internal Rotation 3+ Fair+ Left Flexion (L2) 5 Normal Extension (S1) 5 Normal Abduction 5 Normal Adduction 5 Normal External Rotation 5 Normal Internal Rotation 4+ Good+ Knee Strength Knee Manual Muscle Testing Right Flexion (S2) 3+ Fair+ Extension (L3) 5 Normal Left Flexion (S2) 5 Normal Extension (L3) 5 Normal Ankle/Foot Strength Ankle and Foot Manual Muscle Testing Right Dorsiflexion (L4) 3- Fair- Plantarflexion (S1) 5 Normal Inversion 5 Normal Eversion (S1) 3- Fair- PT-OP-Q Treatments Start: 05/23/21 18:50 Freq: Status: Active Protocol: Document 07/25/21 10:39 SP (Rec: 07/25/21 11:49 SP [id number]) Cardio Equipment Recumbent Stepper (Sci-Fit) Duration (Minutes) 6 Resistance 2 Other LEs only- good effort, cued knees apart // Therapeutic Exercises Supine Exercises clamshell Supine Exercise Name added to HEP Resistance TB #1 x10> #2 loop 2x10 Reps/Minutes 4s abd, 4 s controll adduction return Comments cued same BLE abd distance, eccentric control, neutral pelvis Sitting Exercises Trunk Ext Sitting Exercise Name Trunk Ext Equipment Used Lev 3>2> 3 TB (stair bands) Reps/Minutes 18 x Comments cued Knee flex Sitting Exercise Name Knee flex strengthening Side right Equipment Used Lev3> #2 TB (2 strands- stair bands)- performed after supine clam/ tired Reps/Minutes 15x Comments improved with time for approp Trunk rot Sitting Exercise Name UB rotation Side bilateral Equipment Used Lev 3 TB Reps/Minutes 15x 3, bilaterally Comments time spent for proper set up, phy & v cuing needed. STS Sitting Exercise Name Hands across chest and reaching forward (when tiring) Equipment Used 18 chair, cued contact chair slow descent Reps/Minutes 2x5 reps Comments cued not lean back into chair with LEs, hip hinge slow descent, ft/knees // Gait Training Gait Activity Use of cane Description antalgic gait, R hip abd and medial ankle weakness Device Used SPC, AFO on RLE Level of Assistance SBA Surface firm Distance/Duration 139 Treatment Focus RLE heel and 1st ray WB, level pelvis, R knee flexion foot clear Comments cued R>L stepping out for greater AMRANDO, foot clearance, R knee flexion during swing phase. Self-Care/Home Management Treatment Education Patient Education Home Exercise Program Other Education HEP review seated, cues for set up safety band wrapped around back of chair TB #3 ok. Intiated supine resisted clamshell for hip abd strengthenging, good performance, able don/doff band loop self. PT-OP-T Assessment and Plan Start: 05/23/21 18:50 Freq: Status: Active Protocol: Document 07/25/21 10:39 SP (Rec: 07/25/21 11:49 SP [id number]) Physical Therapy Assessment Goals Six Impairment Decreased functional strength Impairment Pt has difficulty raising R leg to put leg in pants. Web Merchant Goal (LTG) Pt will be able to lift R leg (in sitting) for ease of dressing (to put leg in pants) . LTG Duration 10/16/21 Five Impairment Decreased stamina Short Term Goal (STG) Pt will be able to tolerate 10 minutes of upper body strengthening during a 38 miniute therapy session. STG Duration 08/17/21 Intermediate Goal (LTG) Pt will have greater confidence in her walking as demonstrated by improved TUG score of 14 or less. (07/18/21: TUG 22 secs w/AFO/ cane. 05/30/21: TUG 15 w/ AFO/cane). LTG Duration 10/16/21 Four Impairment Gait dysfunction Impairment R foot drop with occasional catching of toes. Short Term Goal (STG) Increase R hip/knee/ankle strength by 1/2 grade. (07/18/21: NOT MET for: R Hip ER/IR; R Knee flex) STG Duration 08/17/21 (07/18/21: Goal mostly met) Web Merchant Goal (LTG) Legs not as tired at the end of the day with pt able to take her dog on a longer walk to end of block and back. 07/11/20: Pt only able to walk dog out to go to bathroom with cold bad weather, pre bad weather only able walk dog 3 drive[address] and back, uses SPC in LUE. PLOF reported during good weather days was able to walk approx total 1/4 mile. LTG Duration 10/16/21 (07/11/20: progressing) Three Impairment Decreased Balance Impairment Loss of balance without fall 2x/day in home. Web Merchant Goal (LTG) Improve balance with less reported LOB or no loss of balance with gait in home with more consistent use of AFO. 06/27/21: improved balanced gait, less R hip lateral ankle / hip deviations with new sneakers 9.5 (1 whole size larger). 07/11/20: pt reported had 2 falls ([address], 1 in kitchen) due to toe catching floor but not sure which foot caught the floor since last tx . Not sure why, maybe due to new sneakers 1 whole size bigger at 9.5 for AFO fit, vs 8.5. (07/18/21: No falls the past week, occasional LOB without fall) LTG Duration 10/16/21 (07/18/21: Progressing) Two Impairment Decreased R LE strength Impairment Hip: Flexion 5/5 L, 4+/5 R; ER 3-/5 R, 2/5 L; IR 4+/5 bilaterally. Knee: Flex: 4/5 bilaterally; Ext: 3+/5 R, 5/5 L Ankle: Left: generally 5/5; Right: DF 2+/5, PF 3+/5, IV 3/ 5, EV 2/5. Short Term Goal (STG) Improve R ankle: generally 3+/ 5, R Knee: generally 4+/5; R hip AB 4/5 (07/11/20: HEP R ankle EV, DF TB #1). (07/18/21: R ankle: PF/IV is 5 /5 & DF/EV is 3-/5; R knee: Flex 3+/5, Ext 5/5; Hip AB 3-/ 5), STG Duration 08/17/21 (07/18/21: Improved) Web Merchant Goal (LTG) Increase R LE strength with pt able to lift self into bed at end of day with use of R leg. 07/11/20: GOAL MET: pt reports is able to lift RLE into bed now without UE support. (07/18/21: Able to boost self into bed 75% of the time.) LTG Duration GOAL MET 07/11/20 One Impairment HEP Impairment Pt goals received 05/30/21: Strengthen legs (R) & upper body; Hips feel like in alignment after sitting (R hip feels like it is forward). Short Term Goal (STG) Pt will be independent with a self care HEP of hip/knee/ ankle strengthening exercises. (05/30/21: HEP issued for hip and knee flex strengthening, STS without UE support) (06/08/21: Strengthening: Added HEP hip AB; 06/13/21: Added hip Ext. ABD 06/15/21: Added trunk rot) 06/22/21: added R ankle TB PF/ Eccentric DF, EV. (07/18/21: Verbal review of HEP of hip/knee/ankle ex's) STG Duration 06/23/21 (07/18/21: MET GOAL) Intermediate Goal (LTG) Pt will be independent with a self care HEP of core strengthening exercises. (06/19/21: Core strengthening ex HEP issued) (07/20/21: Added HEP trunk flex) LTG Duration 10/16/21 (07/20/21: Progressed) Assessment Summary Assessment Pt required increase time spent seated HEP with TB safety wrapped around chair assimulate at home performance with proper strength, to difficult to anchor in door as in clinic, stable/safe. Improved RLE foot clearance during gait with cues for LLE more abducted placement during advancement for increased WBOS, R knee flexion and foot clearance, improved stability. REviewed HEP seated and Intiated resisted supine clamshell with good effort, cued slow equal movement able 4s in/ out, painfree to add to HEP. Physical Therapy Plan Frequency and Duration Frequency of Treatment 2x/Week Plan of Care Start Date 07/18/21 Plan of Care End Date 10/16/21 Therapeutic Interventions Therapeutic Interventions Home Exercise Program, Neuromuscular Re-education, Patient/Caregiver Education, Self-Care/Home Management, Therapeutic Activities, Therapeutic Exercises Modalities Cold Pack/Ice Massage,Hot Packs Other Referrals/Consults Referrals/Consults Recommended Director Of National Sales: lateral ankle support assist alignment and balance. JAVA WEBSPHERE DEVELOPER recommended [facility] per [facility]/ PT [facility] suggestions post last tx, pt in agreement would be helpful. Next Visit Focus/Plan Next Note Type Treatment Note Next Visit Plan Check response to scifit warm up. Nexttx progress stand bal and gait. Future tx: discuss with pt lateral R heel built up wedge/lift support vs referral to able bodied seaman. Review: HEP TB Trunk Ext/rot/ SB, L ankle TB and gastroc stretch. Strengthening: R Hip ER/IR; R Knee flex, ankle DF with improved mobility. POC: focus on neuro- reeducation for balance and improving stability/safety with gait, improving stamina & functional strength of RLE.
--- NOTE | 2021-07-27 16:47 | PT.OTN ---
Current Diagnoses Major depressive disorder, single episode, in full remission (07/27/21) Multiple sclerosis (07/27/21) Muscle weakness (generalized) (07/27/21) Age-related osteoporosis without current pathological fracture (07/27/21) Unspecified abnormalities of gait and mobility (07/27/21) Dizziness and giddiness (07/27/21) Physical Therapy Treatment Note PT-OP-A Visit Information Start: 05/23/21 18:50 Freq: Status: Active Protocol: Document 07/27/21 10:35 LRN (Rec: 07/27/21 11:20 LRN [id number]) Out-Patient Physical Therapy Visit Information Visit Information Visit Type Treatment Note Visit Start Time 10:35 Visit Stop Time 11:15 Total Visit Minutes 40 Visit Number 14 Evaluation Information Evaluation Date 05/25/21 Precautions Precautions Multiple Sclerosis, Osteoporosis, Dizziness, back pain. R handed. Has life alerts. PT-OP-B Current Condition Start: 05/23/21 18:50 Freq: Status: Active Protocol: Document 05/25/21 11:23 LRN (Rec: 05/25/21 12:06 LRN [id number]) Current Condition History of Current Condition Onset Date 17 yrs ago. Current Complaints Progressive weakness of RLE, since dx'd with MS; spasticity of lisbet LE R>L History of Current Condition Pt reports R foot drop and LE weakness due to MS with R foot dragging for past 10-15 yrs. Has had MS since ~1971, started with numb patches in the legs and clumsy. She has had an AFO for the R ankle foot for 5 yrs ago and wears it intermittently because she can only wear it with one pair of shoes. Pt did not wear the AFO today. States her primary care physician sent her to PT at her request due to having had PT several years ago with Rojelio Slaughter, PT. Neurologist, Natalya Stewart is planning on having her fit for another AFO on R LE that will help her to move the R LE (keep the foot straight and help to raise the foot). Pt reports she sometimes gets dizzy causing LOB without falls. Daughter calls her daily. Prior Treatments and Tests Sees chiropractor every other week. Future Testing and Treatments Planned Fit for RLE brace/AFO; company to contact her within 2-3 weeks. Treatment Goals Patient/Caregiver Goals Pt goal is to work on: *Balance, less LOB (no loss of balance), *Gait, legs not as tired at the end of the day, take longer walks with dog (walking to end of block) *Strengthen R LE to improve ability to lift self into bed at end of day, pushing withGait R leg. Prior Functional Status Baseline Function- Gait Gait with cane. Current Functional Impairments (Reported) Functional Limitations- ADL's Difficulty getting into bed at end of day. Functional Limitations- Mobility/Gait Walks 1/[address] to end of block to mailbox, then home Personal Factors Other Personal Factors That May Effect MS, Osteoporsis, dizziness. Therapy/Recovery PT-OP-C Subjective Start: 05/23/21 18:50 Freq: Status: Active Protocol: Document 07/27/21 10:35 LRN (Rec: 07/27/21 11:20 LRN [id number]) OP-PT Subjective Patient Comments Patient Comments States she is tired on the day she comes to therapy and doesn't ex again at home. States she is exercising 7 days a week and is tired. PT-OP-D Balance Start: 05/23/21 18:50 Freq: Status: Active Protocol: Document 07/20/21 10:40 LRN (Rec: 07/20/21 12:17 LRN [id number]) Tinetti Balance Assessment Sitting Balance Sitting Balance Steady, safe Arising from Chair Ability to Arise Able, uses arms to help Attempts to Arise Arises on 1st attempt Standing Balance Immediate Standing Balance Steady w/o support Standing Balance Steady, wide stance Nudged Response Steady Standing with Eyes Closed Steady Turning Step Pattern Turning 360 Degrees Discontinuous steps Stability Turning 360 Degrees Steady Sitting Down Sitting Down Safe, steady Gait and Step Initiation of Gait No hesitancy Right Foot Step Length Does pass stance foot Right Foot Step Height Does not clear floor Left Foot Step Length Does pass stance foot Left Foot Step Height Completely clears floor Step Description Step Symmetry Step length not equal Step Continuity Steps appear continuous Gait Description Path Description Mild/moderate deviation Trunk Description Marked sway or uses aide Walking Stance Heels together Scoring and Interpretation Tinetti Composite Score (points) 20 Interpretation of Scores High risk for falls(< 19) Tinetti Impairment Rating from Composite 20 to <40% Impaired (Score 17- Score 22) PT-OP-E Functional Tests Start: 05/23/21 18:50 Freq: Status: Active Protocol: Document 07/18/21 12:51 LRN (Rec: 07/18/21 13:37 LRN [id number]) Functional Tests Timed Up and Go (TUG) Score 22 Comments Use of GB/SPC/R AFO TUG Impairment Rating 100% Impaired (Score 20) PT-OP-G Mobility & Gait Start: 05/23/21 18:50 Freq: Status: Active Protocol: Document 05/25/21 11:23 LRN (Rec: 05/25/21 12:06 LRN [id number]) OP Gait Assessment Gait Gait Assistance Required: Independent Able to Maintain Weight Bearing Status Yes During Gait Assistive Devices Assistive Device Straight Cane Gait Deviations General Gait Pattern Decreased Stride Length, Decreased Feet Clearance, Lateral Trunk Lean,Narrow Based Gait Factors Limiting Gait Function Factors Limiting Gait Function Abnormal Tonal Influences, Decreased Activity Tolerance, Decreased Strength,Poor Balance Comments Gait Comments Gait with SPC on R side. Pt hold her R leg stiff with the Ankle in inversion. PT-OP-J Posture/Palpation/Skin Start: 05/23/21 18:50 Freq: Status: Active Protocol: Document 05/25/21 11:23 LRN (Rec: 05/25/21 12:06 LRN [id number]) Posture Evaluation Position Standing Head/C-Spine Posture Forward Head Shoulder Posture (L) Elevated Knee Posture (L) Excess Flexion Ankle/Foot Posture (R) Supinated,(R) Calcaneal Inversion Comments Posture Comments L leg long, holds knee flexed. When R knee is straight, the pelvis rotates right. Slight curve of back with apex on the left. PT-OP-K Range of Motion Start: 05/23/21 18:50 Freq: Status: Active Protocol: Document 07/18/21 12:51 LRN (Rec: 07/18/21 13:37 LRN [id number]) Ankle and Foot Goniometric Range of Motion Ankle and Foot Left Active Ankle/Foot ROM WFL Yes Testing Position Sitting Dorsiflexion with Knee Flexed 7 Inversion 30 Eversion 30 Right Active Ankle/Foot ROM WFL No Testing Position Sitting Inversion 35 Eversion 10 Comments Ankle DF with knee flexed is lacking 5 deg's to neutral. PT-OP-M Strength Start: 05/23/21 18:50 Freq: Status: Active Protocol: Document 07/18/21 12:51 LRN (Rec: 07/18/21 13:37 LRN [id number]) Hip Strength Hip Manual Muscle Testing Right Flexion (L2) 5 Normal Extension (S1) 3 Fair Abduction 3- Fair- Adduction 4+ Good+ External Rotation 3 Fair Internal Rotation 3+ Fair+ Left Flexion (L2) 5 Normal Extension (S1) 5 Normal Abduction 5 Normal Adduction 5 Normal External Rotation 5 Normal Internal Rotation 4+ Good+ Knee Strength Knee Manual Muscle Testing Right Flexion (S2) 3+ Fair+ Extension (L3) 5 Normal Left Flexion (S2) 5 Normal Extension (L3) 5 Normal Ankle/Foot Strength Ankle and Foot Manual Muscle Testing Right Dorsiflexion (L4) 3- Fair- Plantarflexion (S1) 5 Normal Inversion 5 Normal Eversion (S1) 3- Fair- PT-OP-Q Treatments Start: 05/23/21 18:50 Freq: Status: Active Protocol: Document 07/27/21 10:35 LRN (Rec: 07/27/21 11:20 LRN [id number]) Therapeutic Exercises Sitting Exercises Trunk Ext Sitting Exercise Name Trunk Ext Equipment Used Lev 3 TB (stair bands) Reps/Minutes 10x [address] pt did at home to sit fwd with TBand wrapped around chest. Knee flex Sitting Exercise Name Knee flex strengthening Side right Equipment Used Lev 1, R foot using glider, R foot up on stool Reps/Minutes 15x Comments improved with time for approp Trunk rot Sitting Exercise Name UB rotation: arms crossed, holding with hand Side bilateral Equipment Used Lev 3 TB Reps/Minutes 15x 3, bilaterally Comments time spent for proper set up, phy & v cuing needed. Neuro Re-Education Treatment Balance Activities Standing SB Details Stretching into R SB and balancing Surface Level Equipment // Bars Reps/Duration 10 H x 10 Side stepping Details TA/Sidestepping Surface Level Equipment //Bars Reps/Duration 3x Comments Cuing for slow stepping for balance Self-Care/Home Management Treatment Education Patient Education Safety Other Education Discussed home ex's and need for rest days during the week during trunk strengthening. Activities Self-Care/Home Management Activities Issued HEP: Knee flex and trunk rot (previously issued exercises) of pt specific pictures for positioning of body, placement of TBands for exercises. PT-OP-T Assessment and Plan Start: 05/23/21 18:50 Freq: Status: Active Protocol: Document 07/27/21 10:35 LRN (Rec: 07/27/21 11:20 LRN [id number]) Physical Therapy Assessment Goals Six Impairment Decreased functional strength Impairment Pt has difficulty raising R leg to put leg in pants. Prison Goal (LTG) Pt will be able to lift R leg (in sitting) for ease of dressing (to put leg in pants) . LTG Duration 10/16/21 Five Impairment Decreased stamina Short Term Goal (STG) Pt will be able to tolerate 10 minutes of upper body strengthening during a 38 miniute therapy session. STG Duration 08/17/21 Prison Goal (LTG) Pt will have greater confidence in her walking as demonstrated by improved TUG score of 14 or less. (07/18/21: TUG 22 secs w/AFO/ cane. 05/30/21: TUG 15 w/ AFO/cane). LTG Duration 10/16/21 Four Impairment Gait dysfunction Impairment R foot drop with occasional catching of toes. Short Term Goal (STG) Increase R hip/knee/ankle strength by 1/2 grade. (07/18/21: NOT MET for: R Hip ER/IR; R Knee flex) STG Duration 08/17/21 (07/18/21: Goal mostly met) Prison Goal (LTG) Legs not as tired at the end of the day with pt able to take her dog on a longer walk to end of block and back. 07/11/20: Pt only able to walk dog out to go to bathroom with cold bad weather, pre bad weather only able walk dog 3 [address] and back, uses SPC in LUE. PLOF reported during good weather days was able to walk approx total 1/4 mile. LTG Duration 10/16/21 (07/11/20: progressing) Three Impairment Decreased Balance Impairment Loss of balance without fall 2x/day in home. Window Repairer Goal (LTG) Improve balance with less reported LOB or no loss of balance with gait in home with more consistent use of AFO. 06/27/21: improved balanced gait, less R hip lateral ankle / hip deviations with new sneakers 9.5 (1 whole size larger). 07/11/20: pt reported had 2 falls ([address], 1 in kitchen) due to toe catching floor but not sure which foot caught the floor since last tx . Not sure why, maybe due to new sneakers 1 whole size bigger at 9.5 for AFO fit, vs 8.5. (07/18/21: No falls the past week, occasional LOB without fall) LTG Duration 10/16/21 (07/18/21: Progressing) Two Impairment Decreased R LE strength Impairment Hip: Flexion 5/5 L, 4+/5 R; ER 3-/5 R, 2/5 L; IR 4+/5 bilaterally. Knee: Flex: 4/5 bilaterally; Ext: 3+/5 R, 5/5 L Ankle: Left: generally 5/5; Right: DF 2+/5, PF 3+/5, IV 3/ 5, EV 2/5. Short Term Goal (STG) Improve R ankle: generally 3+/ 5, R Knee: generally 4+/5; R hip AB 4/5 (07/11/20: HEP R ankle EV, DF TB #1). (07/18/21: R ankle: PF/IV is 5 /5 & DF/EV is 3-/5; R knee: Flex 3+/5, Ext 5/5; Hip AB 3-/ 5), STG Duration 08/17/21 (07/18/21: Improved) Prison Goal (LTG) Increase R LE strength with pt able to lift self into bed at end of day with use of R leg. 07/11/20: GOAL MET: pt reports is able to lift RLE into bed now without UE support. (07/18/21: Able to boost self into bed 75% of the time.) LTG Duration GOAL MET 07/11/20 One Impairment HEP Impairment Pt goals received 05/30/21: Strengthen legs (R) & upper body; Hips feel like in alignment after sitting (R hip feels like it is forward). Short Term Goal (STG) Pt will be independent with a self care HEP of hip/knee/ ankle strengthening exercises. (05/30/21: HEP issued for hip and knee flex strengthening, STS without UE support) (06/08/21: Strengthening: Added HEP hip AB; 06/13/21: Added hip Ext. ABD 06/15/21: Added trunk rot) 06/22/21: added R ankle TB PF/ Eccentric DF, EV. (07/18/21: Verbal review of HEP of hip/knee/ankle ex's) STG Duration 06/23/21 (07/18/21: MET GOAL) Prison Goal (LTG) Pt will be independent with a self care HEP of core strengthening exercises. (06/19/21: Core strengthening ex HEP issued) (07/20/21: Added HEP trunk flex) LTG Duration 10/16/21 (07/27/21: Clarified trunk strengthening) Assessment Summary Assessment Pt demonstrates improved positioning with T-Band Trunk rot & Ext; sitting knee flex strengthening with new pictures to help pt in set up of HEP. Pt needs neuro- reeducation for balance and improving stability/safety with gait, improving stamina & functional strength of RLE Physical Therapy Plan Frequency and Duration Frequency of Treatment 2x/Week Plan of Care Start Date 07/18/21 Plan of Care End Date 10/16/21 Next Visit Focus/Plan Next Note Type Treatment Note Next Visit Plan Check response to scifit warm up. Next tx progress stand bal ( sidestepping, static blaance in corner), gait. Future tx: discuss with pt lateral R heel built up wedge/ lift support vs referral to special police officer. Review: HEP only if needed: TB Trunk Ext/rot/SB, L ankle TB and gastroc stretch. Continue Strengthening: R Hip ER/IR; R Knee flex, remind pt HEP: ankle DF along with improved mobility. POC: focus on neuro- reeducation for balance and improving stability/safety with gait, improving stamina & functional strength of RLE.
--- NOTE | 2021-08-01 11:27 | PT.OTN ---
Addendum entered and electronically signed by Magdalena Gregory PTA 08/01/21 12:08: Pt reported at end of tx that feels is really tight and reviewed self HEP: supine SKTC and standing calf stretch, added piriformis and hip hinge HS stretch with good feedback response to continue for flexibility. Good understanding. Original Note: Current Diagnoses Major depressive disorder, single episode, in full remission (08/01/21) Multiple sclerosis (08/01/21) Muscle weakness (generalized) (08/01/21) Age-related osteoporosis without current pathological fracture (08/01/21) Unspecified abnormalities of gait and mobility (08/01/21) Dizziness and giddiness (08/01/21) Physical Therapy Treatment Note PT-OP-A Visit Information Start: 05/23/21 18:50 Freq: Status: Active Protocol: Document 08/01/21 10:34 SP (Rec: 08/01/21 12:01 SP [id number]) Out-Patient Physical Therapy Visit Information Visit Information Visit Type Treatment Note Visit Start Time 10:34 Visit Stop Time 11:27 Total Visit Minutes 53 Visit Number 15 Number of CREASING AND CUTTING PRESS FEEDER Visits 1 Evaluation Information Evaluation Date 05/25/21 Precautions Precautions Multiple Sclerosis, Osteoporosis, Dizziness, back pain. R handed. Has life alerts. PT-OP-B Current Condition Start: 05/23/21 18:50 Freq: Status: Active Protocol: Document 05/25/21 11:23 LRN (Rec: 05/25/21 12:06 LRN [id number]) Current Condition History of Current Condition Onset Date 17 yrs ago. Current Complaints Progressive weakness of RLE, since dx'd with MS; spasticity of lisbet LE R>L History of Current Condition Pt reports R foot drop and LE weakness due to MS with R foot dragging for past 10-15 yrs. Has had MS since ~1971, started with numb patches in the legs and clumsy. She has had an AFO for the R ankle foot for 5 yrs ago and wears it intermittently because she can only wear it with one pair of shoes. Pt did not wear the AFO today. States her primary care physician sent her to PT at her request due to having had PT several years ago with [facility]. Neurologist, Dr. Ennis [facility] is planning on having her fit for another AFO on R LE that will help her to move the R LE (keep the foot straight and help to raise the foot). Pt reports she sometimes gets dizzy causing LOB without falls. Daughter calls her daily. Prior Treatments and Tests Sees chiropractor every other week. Future Testing and Treatments Planned Fit for RLE brace/AFO; company to contact her within 2-3 weeks. Treatment Goals Patient/Caregiver Goals Pt goal is to work on: *Balance, less LOB (no loss of balance), *Gait, legs not as tired at the end of the day, take longer walks with dog (walking to end of block) *Strengthen R LE to improve ability to lift self into bed at end of day, pushing withGait R leg. Prior Functional Status Baseline Function- Gait Gait with cane. Current Functional Impairments (Reported) Functional Limitations- ADL's Difficulty getting into bed at end of day. Functional Limitations- Mobility/Gait Walks 1/[address] to end of block to mailbox, then home Personal Factors Other Personal Factors That May Effect MS, Osteoporsis, dizziness. Therapy/Recovery PT-OP-C Subjective Start: 05/23/21 18:50 Freq: Status: Active Protocol: Document 08/01/21 10:34 SP (Rec: 08/01/21 12:01 SP [id number]) OP-PT Subjective Patient Comments Patient Comments Pt commented that feels is doing to much with the band wondering if is causing her headaches having this past week, has never head headaches this often in her past, in past 1-2 times a year. She stated starting PT actually isn't as stable getting around and upsetting her. She wants to condense her HEP to ones can do with ease set up with good strengthening effort but doesn't cause headaches and helps with walking/ getting around better. PT-OP-D Balance Start: 05/23/21 18:50 Freq: Status: Active Protocol: Document 07/20/21 10:40 LRN (Rec: 07/20/21 12:17 LRN [id number]) Tinetti Balance Assessment Sitting Balance Sitting Balance Steady, safe Arising from Chair Ability to Arise Able, uses arms to help Attempts to Arise Arises on 1st attempt Standing Balance Immediate Standing Balance Steady w/o support Standing Balance Steady, wide stance Nudged Response Steady Standing with Eyes Closed Steady Turning Step Pattern Turning 360 Degrees Discontinuous steps Stability Turning 360 Degrees Steady Sitting Down Sitting Down Safe, steady Gait and Step Initiation of Gait No hesitancy Right Foot Step Length Does pass stance foot Right Foot Step Height Does not clear floor Left Foot Step Length Does pass stance foot Left Foot Step Height Completely clears floor Step Description Step Symmetry Step length not equal Step Continuity Steps appear continuous Gait Description Path Description Mild/moderate deviation Trunk Description Marked sway or uses aide Walking Stance Heels together Scoring and Interpretation Tinetti Composite Score (points) 20 Interpretation of Scores High risk for falls(< 19) Tinetti Impairment Rating from Composite 20 to <40% Impaired (Score 17- Score 22) PT-OP-E Functional Tests Start: 05/23/21 18:50 Freq: Status: Active Protocol: Document 07/18/21 12:51 LRN (Rec: 07/18/21 13:37 LRN [id number]) Functional Tests Timed Up and Go (TUG) Score 22 Comments Use of GB/SPC/R AFO TUG Impairment Rating 100% Impaired (Score 20) PT-OP-G Mobility & Gait Start: 05/23/21 18:50 Freq: Status: Active Protocol: Document 05/25/21 11:23 LRN (Rec: 05/25/21 12:06 LRN [id number]) OP Gait Assessment Gait Gait Assistance Required: Independent Able to Maintain Weight Bearing Status Yes During Gait Assistive Devices Assistive Device Straight Cane Gait Deviations General Gait Pattern Decreased Stride Length, Decreased Feet Clearance, Lateral Trunk Lean,Narrow Based Gait Factors Limiting Gait Function Factors Limiting Gait Function Abnormal Tonal Influences, Decreased Activity Tolerance, Decreased Strength,Poor Balance Comments Gait Comments Gait with SPC on R side. Pt hold her R leg stiff with the Ankle in inversion. PT-OP-J Posture/Palpation/Skin Start: 05/23/21 18:50 Freq: Status: Active Protocol: Document 05/25/21 11:23 LRN (Rec: 05/25/21 12:06 LRN [id number]) Posture Evaluation Position Standing Head/C-Spine Posture Forward Head Shoulder Posture (L) Elevated Knee Posture (L) Excess Flexion Ankle/Foot Posture (R) Supinated,(R) Calcaneal Inversion Comments Posture Comments L leg long, holds knee flexed. When R knee is straight, the pelvis rotates right. Slight curve of back with apex on the left. PT-OP-K Range of Motion Start: 05/23/21 18:50 Freq: Status: Active Protocol: Document 07/18/21 12:51 LRN (Rec: 07/18/21 13:37 LRN [id number]) Ankle and Foot Goniometric Range of Motion Ankle and Foot Left Active Ankle/Foot ROM WFL Yes Testing Position Sitting Dorsiflexion with Knee Flexed 7 Inversion 30 Eversion 30 Right Active Ankle/Foot ROM WFL No Testing Position Sitting Inversion 35 Eversion 10 Comments Ankle DF with knee flexed is lacking 5 deg's to neutral. PT-OP-M Strength Start: 05/23/21 18:50 Freq: Status: Active Protocol: Document 07/18/21 12:51 LRN (Rec: 07/18/21 13:37 LRN [id number]) Hip Strength Hip Manual Muscle Testing Right Flexion (L2) 5 Normal Extension (S1) 3 Fair Abduction 3- Fair- Adduction 4+ Good+ External Rotation 3 Fair Internal Rotation 3+ Fair+ Left Flexion (L2) 5 Normal Extension (S1) 5 Normal Abduction 5 Normal Adduction 5 Normal External Rotation 5 Normal Internal Rotation 4+ Good+ Knee Strength Knee Manual Muscle Testing Right Flexion (S2) 3+ Fair+ Extension (L3) 5 Normal Left Flexion (S2) 5 Normal Extension (L3) 5 Normal Ankle/Foot Strength Ankle and Foot Manual Muscle Testing Right Dorsiflexion (L4) 3- Fair- Plantarflexion (S1) 5 Normal Inversion 5 Normal Eversion (S1) 3- Fair- PT-OP-Q Treatments Start: 05/23/21 18:50 Freq: Status: Active Protocol: Document 08/01/21 10:34 SP (Rec: 08/01/21 12:01 SP [id number]) Therapeutic Exercises Supine Exercises clamshell Supine Exercise Name discussed able to do at home as HEP Resistance TB #1 x10> #2 loop 2x10 Equipment Used * Not performed this tx. Reps/Minutes 4s abd, 4 s controll adduction return Comments cued same BLE abd distance, eccentric control, neutral pelvis Sitting Exercises HS and piriformis stretch Sitting Exercise Name added to HEP Side bilateral Equipment Used seated on stationary chair Reps/Minutes 30 each LE 2x/day Comments good feedback, helped decrease leg tightness Trunk Side Bend Sitting Exercise Name Added to HEP Side bilateral Resistance Tb #3> #4 (anchored in [place], around trunk under arms) Equipment Used seated chair Reps/Minutes x10 Comments cued WBOS, tall posture tolerant range- noted side TA work (noneck recruit) ankle EV, PF Sitting Exercise Name discussed not performed continue for HEP Side right Resistance TB #1 Equipment Used continue as HEP Reps/Minutes 2x10 Comments EV & PF w/ TB, Eccentric DF during PF for now Trunk Ext Sitting Exercise Name Trunk Ext Equipment Used Lev 3> L4 (achored in door, around trunk under arms) Reps/Minutes 10x 4 Comments able get on/ off trunk, no neck recruitment Knee flex Sitting Exercise Name Knee flex strengthening- discussed functional anchored in door- not perform Side right Equipment Used Lev 1, R foot using glider, R foot up on stool Reps/Minutes 15x Comments improved with time for approp Trunk rot Sitting Exercise Name DC due to causes neck tension and wondered if cause of headaches STS Sitting Exercise Name discussed continue as HEP for functional strengthening able to do well Resistance AROM Equipment Used 18 chair, cued contact chair slow descent Reps/Minutes 2x5 reps Comments cued not lean back into chair with LEs, hip hinge slow descent, ft/knees // Standing Exercises side stepping Standing Exercise Name added to HEP Side bilateral Resistance AROM Equipment Used LUE contact rail Reps/Minutes 10 ft x2 laps Comments cued tall posture over stance LE, R glut/ hip abd fac- improved level pelvi calf stretch Standing Exercise Name lunge positioning hands on table/ counter Side right Resistance review self HEP Equipment Used not performed, discussed good stretch continue as HEP Reps/Minutes 30s x2 Self-Care/Home Management Treatment Education Patient Education Body Mechanics,Home Exercise Program,Posture,Safety Other Education Extra time spent condensing HEP to ones doable and doesn't cause over tightness and help better balance. Initiated side stepping to HEP with improve R hip abd fac. Scanned ex today are her HEP at this time, will discontinue rest due to over whelming and to challenged to do at home. PT-OP-T Assessment and Plan Start: 05/23/21 18:50 Freq: Status: Active Protocol: Document 08/01/21 10:34 SP (Rec: 08/01/21 12:01 SP [id number]) Physical Therapy Assessment Goals Six Impairment Decreased functional strength Impairment Pt has difficulty raising R leg to put leg in pants. Scrap Drop Operator Goal (LTG) Pt will be able to lift R leg (in sitting) for ease of dressing (to put leg in pants) . LTG Duration 10/16/21 Five Impairment Decreased stamina Short Term Goal (STG) Pt will be able to tolerate 10 minutes of upper body strengthening during a 38 miniute therapy session. STG Duration 08/17/21 Scrap Drop Operator Goal (LTG) Pt will have greater confidence in her walking as demonstrated by improved TUG score of 14 or less. (07/18/21: TUG 22 secs w/AFO/ cane. 05/30/21: TUG 15 w/ AFO/cane). LTG Duration 10/16/21 Four Impairment Gait dysfunction Impairment R foot drop with occasional catching of toes. Short Term Goal (STG) Increase R hip/knee/ankle strength by 1/2 grade. (07/18/21: NOT MET for: R Hip ER/IR; R Knee flex) STG Duration 08/17/21 (07/18/21: Goal mostly met) Scrap Drop Operator Goal (LTG) Legs not as tired at the end of the day with pt able to take her dog on a longer walk to end of block and back. 07/11/20: Pt only able to walk dog out to go to bathroom with cold bad weather, pre bad weather only able walk dog 3 drive[address] and back, uses SPC in LUE. PLOF reported during good weather days was able to walk approx total 1/4 mile. LTG Duration 10/16/21 (07/11/20: progressing) Three Impairment Decreased Balance Impairment Loss of balance without fall 2x/day in home. Mcc Goal (LTG) Improve balance with less reported LOB or no loss of balance with gait in home with more consistent use of AFO. 06/27/21: improved balanced gait, less R hip lateral ankle / hip deviations with new sneakers 9.5 (1 whole size larger). 07/11/20: pt reported had 2 falls ([address], 1 in kitchen) due to toe catching floor but not sure which foot caught the floor since last tx . Not sure why, maybe due to new sneakers 1 whole size bigger at 9.5 for AFO fit, vs 8.5. (07/18/21: No falls the past week, occasional LOB without fall) LTG Duration 10/16/21 (07/18/21: Progressing) Two Impairment Decreased R LE strength Impairment Hip: Flexion 5/5 L, 4+/5 R; ER 3-/5 R, 2/5 L; IR 4+/5 bilaterally. Knee: Flex: 4/5 bilaterally; Ext: 3+/5 R, 5/5 L Ankle: Left: generally 5/5; Right: DF 2+/5, PF 3+/5, IV 3/ 5, EV 2/5. Short Term Goal (STG) Improve R ankle: generally 3+/ 5, R Knee: generally 4+/5; R hip AB 4/5 (07/11/20: HEP R ankle EV, DF TB #1). (07/18/21: R ankle: PF/IV is 5 /5 & DF/EV is 3-/5; R knee: Flex 3+/5, Ext 5/5; Hip AB 3-/ 5), STG Duration 08/17/21 (07/18/21: Improved) Mcc Goal (LTG) Increase R LE strength with pt able to lift self into bed at end of day with use of R leg. 07/11/20: GOAL MET: pt reports is able to lift RLE into bed now without UE support. (07/18/21: Able to boost self into bed 75% of the time.) LTG Duration GOAL MET 07/11/20 One Impairment HEP Impairment Pt goals received 05/30/21: Strengthen legs (R) & upper body; Hips feel like in alignment after sitting (R hip feels like it is forward). Short Term Goal (STG) Pt will be independent with a self care HEP of hip/knee/ ankle strengthening exercises. (05/30/21: HEP issued for hip and knee flex strengthening, STS without UE support) (06/08/21: Strengthening: Added HEP hip AB; 06/13/21: Added hip Ext. ABD 06/15/21: Added trunk rot) 06/22/21: added R ankle TB PF/ Eccentric DF, EV. (07/18/21: Verbal review of HEP of hip/knee/ankle ex's) STG Duration 06/23/21 (07/18/21: MET GOAL) Scrap Drop Operator Goal (LTG) Pt will be independent with a self care HEP of core strengthening exercises. (06/19/21: Core strengthening ex HEP issued) (07/20/21: Added HEP trunk flex) LTG Duration 10/16/21 (07/27/21: Clarified trunk strengthening) Assessment Summary Assessment Pt reported felt better about HEP discussed and performed today and feels doable to perform at home. Little time spent TB around trunk for strengthening without stress on neck/ upper body with good feedback. Pt improved in R glut facilitation side stepping for addition to HEP. Physical Therapy Plan Frequency and Duration Frequency of Treatment 2x/Week Plan of Care Start Date 07/18/21 Plan of Care End Date 10/16/21 Therapeutic Interventions Therapeutic Interventions Home Exercise Program, Neuromuscular Re-education, Patient/Caregiver Education, Self-Care/Home Management, Therapeutic Activities, Therapeutic Exercises Modalities Cold Pack/Ice Massage,Hot Packs Other Referrals/Consults Referrals/Consults Recommended Cnc Technician: lateral ankle support assist alignment and balance. CREASING AND CUTTING PRESS FEEDER recommended [place] Prothe[facility] and Orthotics per PT [facility]/ PT [facility]igna suggestions post last tx, pt in agreement would be helpful. Next Visit Focus/Plan Next Note Type Treatment Note Next Visit Plan Next tx: recheck side stepping , progress standing balance saran stepping, NBOS and gait w/ SPC. Future tx: discuss with pt lateral R heel built up wedge/ lift support vs referral to manager core. Review: HEP only if needed: TB Trunk Ext/rot/SB, L ankle TB and gastroc stretch. Continue Strengthening: R Hip ER/IR; R Knee flex, remind pt HEP: ankle DF along with improved mobility. POC: focus on neuro- reeducation for balance and improving stability/safety with gait, improving stamina & functional strength of RLE.
--- NOTE | 2021-08-03 11:40 | PT.OTN ---
Current Diagnoses Major depressive disorder, single episode, in full remission (08/03/21) Multiple sclerosis (08/03/21) Muscle weakness (generalized) (08/03/21) Age-related osteoporosis without current pathological fracture (08/03/21) Unspecified abnormalities of gait and mobility (08/03/21) Dizziness and giddiness (08/03/21) Physical Therapy Treatment Note PT-OP-A Visit Information Start: 05/23/21 18:50 Freq: Status: Active Protocol: Document 08/03/21 10:41 LRN (Rec: 08/03/21 11:35 LRN [id number]) Out-Patient Physical Therapy Visit Information Visit Information Visit Type Treatment Note Visit Start Time 10:42 Visit Stop Time 11:26 Total Visit Minutes 44 Visit Number 16 Evaluation Information Evaluation Date 05/25/21 Precautions Precautions Multiple Sclerosis, Osteoporosis, Dizziness, back pain. R handed. Has life alerts. PT-OP-B Current Condition Start: 05/23/21 18:50 Freq: Status: Active Protocol: Document 05/25/21 11:23 LRN (Rec: 05/25/21 12:06 LRN [id number]) Current Condition History of Current Condition Onset Date 17 yrs ago. Current Complaints Progressive weakness of RLE, since dx'd with MS; spasticity of lisbet LE R>L History of Current Condition Pt reports R foot drop and LE weakness due to MS with R foot dragging for past 10-15 yrs. Has had MS since ~1971, started with numb patches in the legs and clumsy. She has had an AFO for the R ankle foot for 5 yrs ago and wears it intermittently because she can only wear it with one pair of shoes. Pt did not wear the AFO today. States her primary care physician sent her to PT at her request due to having had PT several years ago with Rojelio Slaughter, PT. Neurologist, Natalya Stewart is planning on having her fit for another AFO on R LE that will help her to move the R LE (keep the foot straight and help to raise the foot). Pt reports she sometimes gets dizzy causing LOB without falls. Daughter calls her daily. Prior Treatments and Tests Sees chiropractor every other week. Future Testing and Treatments Planned Fit for RLE brace/AFO; company to contact her within 2-3 weeks. Treatment Goals Patient/Caregiver Goals Pt goal is to work on: *Balance, less LOB (no loss of balance), *Gait, legs not as tired at the end of the day, take longer walks with dog (walking to end of block) *Strengthen R LE to improve ability to lift self into bed at end of day, pushing withGait R leg. Prior Functional Status Baseline Function- Gait Gait with cane. Current Functional Impairments (Reported) Functional Limitations- ADL's Difficulty getting into bed at end of day. Functional Limitations- Mobility/Gait Walks 1/[address] to end of block to mailbox, then home Personal Factors Other Personal Factors That May Effect MS, Osteoporsis, dizziness. Therapy/Recovery PT-OP-C Subjective Start: 05/23/21 18:50 Freq: Status: Active Protocol: Document 08/01/21 10:34 SP (Rec: 08/01/21 12:01 SP [id number]) OP-PT Subjective Patient Comments Patient Comments Pt commented that feels is doing to much with the band wondering if is causing her headaches having this past week, has never head headaches this often in her past, in past 1-2 times a year. She stated starting PT actually isn't as stable getting around and upsetting her. She wants to condense her HEP to ones can do with ease set up with good strengthening effort but doesn't cause headaches and helps with walking/ getting around better. PT-OP-D Balance Start: 05/23/21 18:50 Freq: Status: Active Protocol: Document 07/20/21 10:40 LRN (Rec: 07/20/21 12:17 LRN [id number]) Tinetti Balance Assessment Sitting Balance Sitting Balance Steady, safe Arising from Chair Ability to Arise Able, uses arms to help Attempts to Arise Arises on 1st attempt Standing Balance Immediate Standing Balance Steady w/o support Standing Balance Steady, wide stance Nudged Response Steady Standing with Eyes Closed Steady Turning Step Pattern Turning 360 Degrees Discontinuous steps Stability Turning 360 Degrees Steady Sitting Down Sitting Down Safe, steady Gait and Step Initiation of Gait No hesitancy Right Foot Step Length Does pass stance foot Right Foot Step Height Does not clear floor Left Foot Step Length Does pass stance foot Left Foot Step Height Completely clears floor Step Description Step Symmetry Step length not equal Step Continuity Steps appear continuous Gait Description Path Description Mild/moderate deviation Trunk Description Marked sway or uses aide Walking Stance Heels together Scoring and Interpretation Tinetti Composite Score (points) 20 Interpretation of Scores High risk for falls(< 19) Tinetti Impairment Rating from Composite 20 to <40% Impaired (Score 17- Score 22) PT-OP-E Functional Tests Start: 05/23/21 18:50 Freq: Status: Active Protocol: Document 07/18/21 12:51 LRN (Rec: 07/18/21 13:37 LRN [id number]) Functional Tests Timed Up and Go (TUG) Score 22 Comments Use of GB/SPC/R AFO TUG Impairment Rating 100% Impaired (Score 20) PT-OP-G Mobility & Gait Start: 05/23/21 18:50 Freq: Status: Active Protocol: Document 05/25/21 11:23 LRN (Rec: 05/25/21 12:06 LRN [id number]) OP Gait Assessment Gait Gait Assistance Required: Independent Able to Maintain Weight Bearing Status Yes During Gait Assistive Devices Assistive Device Straight Cane Gait Deviations General Gait Pattern Decreased Stride Length, Decreased Feet Clearance, Lateral Trunk Lean,Narrow Based Gait Factors Limiting Gait Function Factors Limiting Gait Function Abnormal Tonal Influences, Decreased Activity Tolerance, Decreased Strength,Poor Balance Comments Gait Comments Gait with SPC on R side. Pt hold her R leg stiff with the Ankle in inversion. PT-OP-J Posture/Palpation/Skin Start: 05/23/21 18:50 Freq: Status: Active Protocol: Document 05/25/21 11:23 LRN (Rec: 05/25/21 12:06 LRN [id number]) Posture Evaluation Position Standing Head/C-Spine Posture Forward Head Shoulder Posture (L) Elevated Knee Posture (L) Excess Flexion Ankle/Foot Posture (R) Supinated,(R) Calcaneal Inversion Comments Posture Comments L leg long, holds knee flexed. When R knee is straight, the pelvis rotates right. Slight curve of back with apex on the left. PT-OP-K Range of Motion Start: 05/23/21 18:50 Freq: Status: Active Protocol: Document 07/18/21 12:51 LRN (Rec: 07/18/21 13:37 LRN [id number]) Ankle and Foot Goniometric Range of Motion Ankle and Foot Left Active Ankle/Foot ROM WFL Yes Testing Position Sitting Dorsiflexion with Knee Flexed 7 Inversion 30 Eversion 30 Right Active Ankle/Foot ROM WFL No Testing Position Sitting Inversion 35 Eversion 10 Comments Ankle DF with knee flexed is lacking 5 deg's to neutral. PT-OP-M Strength Start: 05/23/21 18:50 Freq: Status: Active Protocol: Document 07/18/21 12:51 LRN (Rec: 07/18/21 13:37 LRN [id number]) Hip Strength Hip Manual Muscle Testing Right Flexion (L2) 5 Normal Extension (S1) 3 Fair Abduction 3- Fair- Adduction 4+ Good+ External Rotation 3 Fair Internal Rotation 3+ Fair+ Left Flexion (L2) 5 Normal Extension (S1) 5 Normal Abduction 5 Normal Adduction 5 Normal External Rotation 5 Normal Internal Rotation 4+ Good+ Knee Strength Knee Manual Muscle Testing Right Flexion (S2) 3+ Fair+ Extension (L3) 5 Normal Left Flexion (S2) 5 Normal Extension (L3) 5 Normal Ankle/Foot Strength Ankle and Foot Manual Muscle Testing Right Dorsiflexion (L4) 3- Fair- Plantarflexion (S1) 5 Normal Inversion 5 Normal Eversion (S1) 3- Fair- PT-OP-Q Treatments Start: 05/23/21 18:50 Freq: Status: Active Protocol: Document 08/03/21 10:41 LRN (Rec: 08/03/21 11:35 LRN [id number]) Therapeutic Exercises Sitting Exercises Trunk Flex Sitting Exercise Name Trunk Flex Equipment Used Lev 2 TBand Reps/Minutes 15x Comments Cued abdominal tightening HS and piriformis stretch Sitting Exercise Name HS & piriformis stretch Side right Equipment Used seated on stationary chair Reps/Minutes 60 each LE 3x/day Comments R hip ER tighter than L. Trunk Side Bend Sitting Exercise Name Trunk SB Side bilateral Resistance Tb #3> #4 ( Equipment Used seated chair Reps/Minutes x15 Comments cued WBOS, tall posture tolerant range- noted side TA work (noneck recruit) Trunk Ext Sitting Exercise Name Trunk Ext Equipment Used Lev 4 TBand Reps/Minutes 15x Comments Cued for start 45 deg's trunk flex to max allowable ext ROM Knee flex Sitting Exercise Name Knee flex strengthening Side right Equipment Used Lev 1, R foot using glider, L foot up on stool Reps/Minutes 15x Comments Assist to start, pt able to flex R knee >90 deg's Neuro Re-Education Treatment Balance Activities Standing SB Details Stretching into R SB and balancing Surface Level Equipment // Bars Reps/Duration 10 H x 2 Side stepping Details TA/Sidestepping (R leg straight & Leg bent) Surface Level Equipment //Bars Reps/Duration 16' Comments Cuing for slow stepping for balance and then for R hip/ knee strengthening. PT-OP-T Assessment and Plan Start: 05/23/21 18:50 Freq: Status: Active Protocol: Document 08/03/21 10:41 LRN (Rec: 08/03/21 11:35 LRN [id number]) Physical Therapy Assessment Goals Six Impairment Decreased functional strength Impairment Pt has difficulty raising R leg to put leg in pants. M1A1 Tank Crewman Goal (LTG) Pt will be able to lift R leg (in sitting) for ease of dressing (to put leg in pants) . LTG Duration 10/16/21 Five Impairment Decreased stamina Short Term Goal (STG) Pt will be able to tolerate 10 minutes of upper body strengthening during a 38 miniute therapy session. STG Duration 08/17/21 Long-Term Goal (LTG) Pt will have greater confidence in her walking as demonstrated by improved TUG score of 14 or less. (07/18/21: TUG 22 secs w/AFO/ cane. 05/30/21: TUG 15 w/ AFO/cane). LTG Duration 10/16/21 Four Impairment Gait dysfunction Impairment R foot drop with occasional catching of toes. Short Term Goal (STG) Increase R hip/knee/ankle strength by 1/2 grade. (07/18/21: NOT MET for: R Hip ER/IR; R Knee flex) STG Duration 08/17/21 (07/18/21: Goal mostly met) Long-Term Goal (LTG) Legs not as tired at the end of the day with pt able to take her dog on a longer walk to end of block and back. 07/11/20: Pt only able to walk dog out to go to bathroom with cold bad weather, pre bad weather only able walk dog 3 drive[address] and back, uses SPC in LUE. PLOF reported during good weather days was able to walk approx total 1/4 mile. LTG Duration 10/16/21 (07/11/20: progressing) Three Impairment Decreased Balance Impairment Loss of balance without fall 2x/day in home. M1A1 Tank Crewman Goal (LTG) Improve balance with less reported LOB or no loss of balance with gait in home with more consistent use of AFO. 06/27/21: improved balanced gait, less R hip lateral ankle / hip deviations with new sneakers 9.5 (1 whole size larger). 07/11/20: pt reported had 2 falls ([address], 1 in kitchen) due to toe catching floor but not sure which foot caught the floor since last tx . Not sure why, maybe due to new sneakers 1 whole size bigger at 9.5 for AFO fit, vs 8.5. (07/18/21: No falls the past week, occasional LOB without fall) LTG Duration 10/16/21 (07/18/21: Progressing) Two Impairment Decreased R LE strength Impairment Hip: Flexion 5/5 L, 4+/5 R; ER 3-/5 R, 2/5 L; IR 4+/5 bilaterally. Knee: Flex: 4/5 bilaterally; Ext: 3+/5 R, 5/5 L Ankle: Left: generally 5/5; Right: DF 2+/5, PF 3+/5, IV 3/ 5, EV 2/5. Short Term Goal (STG) Improve R ankle: generally 3+/ 5, R Knee: generally 4+/5; R hip AB 4/5 (07/11/20: HEP R ankle EV, DF TB #1). (07/18/21: R ankle: PF/IV is 5 /5 & DF/EV is 3-/5; R knee: Flex 3+/5, Ext 5/5; Hip AB 3-/ 5), STG Duration 08/17/21 (07/18/21: Improved) Long-Term Goal (LTG) Increase R LE strength with pt able to lift self into bed at end of day with use of R leg. 07/11/20: GOAL MET: pt reports is able to lift RLE into bed now without UE support. (07/18/21: Able to boost self into bed 75% of the time.) LTG Duration GOAL MET 07/11/20 One Impairment HEP Impairment Pt goals received 05/30/21: Strengthen legs (R) & upper body; Hips feel like in alignment after sitting (R hip feels like it is forward). Short Term Goal (STG) Pt will be independent with a self care HEP of hip/knee/ ankle strengthening exercises. (05/30/21: HEP issued for hip and knee flex strengthening, STS without UE support) (06/08/21: Strengthening: Added HEP hip AB; 06/13/21: Added hip Ext. ABD 06/15/21: Added trunk rot) 06/22/21: added R ankle TB PF/ Eccentric DF, EV. (07/18/21: Verbal review of HEP of hip/knee/ankle ex's) STG Duration 06/23/21 (07/18/21: MET GOAL) Long-Term Goal (LTG) Pt will be independent with a self care HEP of core strengthening exercises. (06/19/21: Core strengthening ex HEP issued) (07/20/21: Added HEP trunk flex) LTG Duration 10/16/21 (07/27/21: Clarified trunk strengthening) Assessment Summary Assessment Pt core control is fair with sidestepping, getting L sided trunk lean with SLS on RLE due to weak core & hip AB. Pt demonstrates weakness of R LE during sidestepping by holding RLE ridgid instead of doing a step over action. Pt requires use of 1 hand for balance support. Physical Therapy Plan Next Visit Focus/Plan Next Note Type Treatment Note Next Visit Plan Future tx: discuss with pt lateral R heel built up wedge/ lift support vs referral to roller man. Review: L ankle TB and gastroc stretch. Progress standing balance saran stepping, NBOS and gait w/ SPC. Continue Strengthening: R Hip ER/IR; R Knee flex, remind pt HEP: ankle DF along with improved mobility. Progress endurance with UBE at end of therapy. POC: focus on neuro- reeducation for balance and improving stability/safety with gait, improving stamina & functional strength of RLE.
--- NOTE | 2021-08-08 11:20 | PT.OTN ---
Current Diagnoses Major depressive disorder, single episode, in full remission (08/08/21) Multiple sclerosis (08/08/21) Muscle weakness (generalized) (08/08/21) Age-related osteoporosis without current pathological fracture (08/08/21) Unspecified abnormalities of gait and mobility (08/08/21) Dizziness and giddiness (08/08/21) Physical Therapy Treatment Note PT-OP-A Visit Information Start: 05/23/21 18:50 Freq: Status: Active Protocol: Document 08/08/21 10:30 SP (Rec: 08/08/21 11:45 SP [id number]) Out-Patient Physical Therapy Visit Information Visit Information Visit Type Treatment Note Visit Start Time 10:30 Visit Stop Time 11:20 Total Visit Minutes 50 Visit Number 17 Number of [employer] Visits 1 Evaluation Information Evaluation Date 05/25/21 Precautions Precautions Multiple Sclerosis, Osteoporosis, Dizziness, back pain. R handed. Has life alerts. PT-OP-B Current Condition Start: 05/23/21 18:50 Freq: Status: Active Protocol: Document 05/25/21 11:23 LRN (Rec: 05/25/21 12:06 LRN [id number]) Current Condition History of Current Condition Onset Date 17 yrs ago. Current Complaints Progressive weakness of RLE, since dx'd with MS; spasticity of lisbet LE R>L History of Current Condition Pt reports R foot drop and LE weakness due to MS with R foot dragging for past 10-15 yrs. Has had MS since ~1971, started with numb patches in the legs and clumsy. She has had an AFO for the R ankle foot for 5 yrs ago and wears it intermittently because she can only wear it with one pair of shoes. Pt did not wear the AFO today. States her primary care physician sent her to PT at her request due to having had PT several years ago with Rojelio Slaughter, PT. Neurologist, Natalya Stewart is planning on having her fit for another AFO on R LE that will help her to move the R LE (keep the foot straight and help to raise the foot). Pt reports she sometimes gets dizzy causing LOB without falls. Daughter calls her daily. Prior Treatments and Tests Sees chiropractor every other week. Future Testing and Treatments Planned Fit for RLE brace/AFO; company to contact her within 2-3 weeks. Treatment Goals Patient/Caregiver Goals Pt goal is to work on: *Balance, less LOB (no loss of balance), *Gait, legs not as tired at the end of the day, take longer walks with dog (walking to end of block) *Strengthen R LE to improve ability to lift self into bed at end of day, pushing withGait R leg. Prior Functional Status Baseline Function- Gait Gait with cane. Current Functional Impairments (Reported) Functional Limitations- ADL's Difficulty getting into bed at end of day. Functional Limitations- Mobility/Gait Walks 1/[address] to end of block to mailbox, then home Personal Factors Other Personal Factors That May Effect MS, Osteoporsis, dizziness. Therapy/Recovery PT-OP-C Subjective Start: 05/23/21 18:50 Freq: Status: Active Protocol: Document 08/08/21 10:30 SP (Rec: 08/08/21 11:45 SP [id number]) OP-PT Subjective Patient Comments Patient Comments Pt reports that continues to have headaches and nightmares unsure if is due to new medication taking, has a call into doctor to discuss medication and adverse affects having. She saw someone to assisted in joint adjustments and they discussed maybe the theraband exercises is to much and contributing to over tightening her upper body and neck and a factor with headaches, recommended just work on exercise reps and endurance that doesn't stress her neck and upper body. Pt stated wanted to work on leg strengthening and balance today that doesn't involve bands and see how she feels. PT-OP-D Balance Start: 05/23/21 18:50 Freq: Status: Active Protocol: Document 07/20/21 10:40 LRN (Rec: 07/20/21 12:17 LRN [id number]) Tinetti Balance Assessment Sitting Balance Sitting Balance Steady, safe Arising from Chair Ability to Arise Able, uses arms to help Attempts to Arise Arises on 1st attempt Standing Balance Immediate Standing Balance Steady w/o support Standing Balance Steady, wide stance Nudged Response Steady Standing with Eyes Closed Steady Turning Step Pattern Turning 360 Degrees Discontinuous steps Stability Turning 360 Degrees Steady Sitting Down Sitting Down Safe, steady Gait and Step Initiation of Gait No hesitancy Right Foot Step Length Does pass stance foot Right Foot Step Height Does not clear floor Left Foot Step Length Does pass stance foot Left Foot Step Height Completely clears floor Step Description Step Symmetry Step length not equal Step Continuity Steps appear continuous Gait Description Path Description Mild/moderate deviation Trunk Description Marked sway or uses aide Walking Stance Heels together Scoring and Interpretation Tinetti Composite Score (points) 20 Interpretation of Scores High risk for falls(< 19) Tinetti Impairment Rating from Composite 20 to <40% Impaired (Score 17- Score 22) PT-OP-E Functional Tests Start: 05/23/21 18:50 Freq: Status: Active Protocol: Document 07/18/21 12:51 LRN (Rec: 07/18/21 13:37 LRN [id number]) Functional Tests Timed Up and Go (TUG) Score 22 Comments Use of GB/SPC/R AFO TUG Impairment Rating 100% Impaired (Score 20) PT-OP-G Mobility & Gait Start: 05/23/21 18:50 Freq: Status: Active Protocol: Document 05/25/21 11:23 LRN (Rec: 05/25/21 12:06 LRN [id number]) OP Gait Assessment Gait Gait Assistance Required: Independent Able to Maintain Weight Bearing Status Yes During Gait Assistive Devices Assistive Device Straight Cane Gait Deviations General Gait Pattern Decreased Stride Length, Decreased Feet Clearance, Lateral Trunk Lean,Narrow Based Gait Factors Limiting Gait Function Factors Limiting Gait Function Abnormal Tonal Influences, Decreased Activity Tolerance, Decreased Strength,Poor Balance Comments Gait Comments Gait with SPC on R side. Pt hold her R leg stiff with the Ankle in inversion. PT-OP-J Posture/Palpation/Skin Start: 05/23/21 18:50 Freq: Status: Active Protocol: Document 05/25/21 11:23 LRN (Rec: 05/25/21 12:06 LRN [id number]) Posture Evaluation Position Standing Head/C-Spine Posture Forward Head Shoulder Posture (L) Elevated Knee Posture (L) Excess Flexion Ankle/Foot Posture (R) Supinated,(R) Calcaneal Inversion Comments Posture Comments L leg long, holds knee flexed. When R knee is straight, the pelvis rotates right. Slight curve of back with apex on the left. PT-OP-K Range of Motion Start: 05/23/21 18:50 Freq: Status: Active Protocol: Document 07/18/21 12:51 LRN (Rec: 07/18/21 13:37 LRN [id number]) Ankle and Foot Goniometric Range of Motion Ankle and Foot Left Active Ankle/Foot ROM WFL Yes Testing Position Sitting Dorsiflexion with Knee Flexed 7 Inversion 30 Eversion 30 Right Active Ankle/Foot ROM WFL No Testing Position Sitting Inversion 35 Eversion 10 Comments Ankle DF with knee flexed is lacking 5 deg's to neutral. PT-OP-M Strength Start: 05/23/21 18:50 Freq: Status: Active Protocol: Document 07/18/21 12:51 LRN (Rec: 07/18/21 13:37 LRN [id number]) Hip Strength Hip Manual Muscle Testing Right Flexion (L2) 5 Normal Extension (S1) 3 Fair Abduction 3- Fair- Adduction 4+ Good+ External Rotation 3 Fair Internal Rotation 3+ Fair+ Left Flexion (L2) 5 Normal Extension (S1) 5 Normal Abduction 5 Normal Adduction 5 Normal External Rotation 5 Normal Internal Rotation 4+ Good+ Knee Strength Knee Manual Muscle Testing Right Flexion (S2) 3+ Fair+ Extension (L3) 5 Normal Left Flexion (S2) 5 Normal Extension (L3) 5 Normal Ankle/Foot Strength Ankle and Foot Manual Muscle Testing Right Dorsiflexion (L4) 3- Fair- Plantarflexion (S1) 5 Normal Inversion 5 Normal Eversion (S1) 3- Fair- PT-OP-Q Treatments Start: 05/23/21 18:50 Freq: Status: Active Protocol: Document 08/08/21 10:30 SP (Rec: 08/08/21 11:45 SP [id number]) Cardio Equipment Recumbent Elliptical (Cinnamon) Duration (Minutes) 8 Resistance 2>1 Seat Position 8 Other without AFO, LEs only, 45-50 RPM, Total steps: 696 Therapeutic Exercises Sitting Exercises HS and piriformis stretch Sitting Exercise Name piriformis stretch Side right Equipment Used seated on stationary chair Reps/Minutes 60, recommended 3x/day previous tx Comments R hip ER tighter than L. Hip flex w/ER Sitting Exercise Name R heel slide from ankle to knee Side right Reps/Minutes 10x 1 reps Comments Assist to lift the R LE. STS Sitting Exercise Name reviewed HEP- eccentric chair tap Resistance AROM hands front Equipment Used 18 chair, cued contact chair slow descent Reps/Minutes x12 Comments cued wt foot triangle,not leanwith LEs, hip hinge slow descent, ft/knees // Hip Flex Sitting Exercise Name SKTC stretch Side right Resistance AROM Reps/Minutes 30 Comments decreased R hip tightness Neuro Re-Education Treatment Balance Activities step taps Details R hip flexion con/ eccentric, R hip stab during LLE movement Surface firm Equipment 6 step, rail contact PRN Reps/Duration 5 reps x4 sets Comments cued tall postural alignment, R hip flexion no hip hike, R hip stability stance LE w/ core and hip abd fac during LLE mobility ascend/descend fwd/bwd walking Details no AFO RLE Surface firm Equipment in //bars w/contact PRN Reps/Duration 2 laps Comments cued tall posture, increase ARMANDO, core/ hip abd facilitation Step up, over, retro Equipment 6 step Comments in // bars hurdles Details single saran step over back Surface firm Equipment 1 //bar if needed PRN Reps/Duration 2x5 reps each LE Comments CG- 10%A cued tall posture/ core/ hip abd fac, RLE hip/ knee flexion clear saran, LOB x1 rail and 10%A during RLE stance/ LLE stepping back to start position. Self-Care/Home Management Treatment Education Patient Education Body Mechanics,Home Exercise Program,Posture,Safety Other Education Initiated step ups w/1 rail support for functional strengthening and safe balance activity for home. PT-OP-T Assessment and Plan Start: 05/23/21 18:50 Freq: Status: Active Protocol: Document 08/08/21 10:30 SP (Rec: 08/08/21 11:45 SP [id number]) Physical Therapy Assessment Goals Six Impairment Decreased functional strength Impairment Pt has difficulty raising R leg to put leg in pants. Skilled Nursing Goal (LTG) Pt will be able to lift R leg (in sitting) for ease of dressing (to put leg in pants) . LTG Duration 10/16/21 Five Impairment Decreased stamina Short Term Goal (STG) Pt will be able to tolerate 10 minutes of upper body strengthening during a 38 miniute therapy session. STG Duration 08/17/21 Film Editor Goal (LTG) Pt will have greater confidence in her walking as demonstrated by improved TUG score of 14 or less. (07/18/21: TUG 22 secs w/AFO/ cane. 05/30/21: TUG 15 w/ AFO/cane). LTG Duration 10/16/21 Four Impairment Gait dysfunction Impairment R foot drop with occasional catching of toes. Short Term Goal (STG) Increase R hip/knee/ankle strength by 1/2 grade. (07/18/21: NOT MET for: R Hip ER/IR; R Knee flex) STG Duration 08/17/21 (07/18/21: Goal mostly met) Skilled Nursing Goal (LTG) Legs not as tired at the end of the day with pt able to take her dog on a longer walk to end of block and back. 07/11/20: Pt only able to walk dog out to go to bathroom with cold bad weather, pre bad weather only able walk dog 3 drive[address] and back, uses SPC in LUE. PLOF reported during good weather days was able to walk approx total 1/4 mile. LTG Duration 10/16/21 (07/11/20: progressing) Three Impairment Decreased Balance Impairment Loss of balance without fall 2x/day in home. Film Editor Goal (LTG) Improve balance with less reported LOB or no loss of balance with gait in home with more consistent use of AFO. 06/27/21: improved balanced gait, less R hip lateral ankle / hip deviations with new sneakers 9.5 (1 whole size larger). 07/11/20: pt reported had 2 falls ([address], 1 in kitchen) due to toe catching floor but not sure which foot caught the floor since last tx . Not sure why, maybe due to new sneakers 1 whole size bigger at 9.5 for AFO fit, vs 8.5. (07/18/21: No falls the past week, occasional LOB without fall) LTG Duration 10/16/21 (07/18/21: Progressing) Two Impairment Decreased R LE strength Impairment Hip: Flexion 5/5 L, 4+/5 R; ER 3-/5 R, 2/5 L; IR 4+/5 bilaterally. Knee: Flex: 4/5 bilaterally; Ext: 3+/5 R, 5/5 L Ankle: Left: generally 5/5; Right: DF 2+/5, PF 3+/5, IV 3/ 5, EV 2/5. Short Term Goal (STG) Improve R ankle: generally 3+/ 5, R Knee: generally 4+/5; R hip AB 4/5 (07/11/20: HEP R ankle EV, DF TB #1). (07/18/21: R ankle: PF/IV is 5 /5 & DF/EV is 3-/5; R knee: Flex 3+/5, Ext 5/5; Hip AB 3-/ 5), STG Duration 08/17/21 (07/18/21: Improved) Skilled Nursing Goal (LTG) Increase R LE strength with pt able to lift self into bed at end of day with use of R leg. 07/11/20: GOAL MET: pt reports is able to lift RLE into bed now without UE support. (07/18/21: Able to boost self into bed 75% of the time.) LTG Duration GOAL MET 07/11/20 One Impairment HEP Impairment Pt goals received 05/30/21: Strengthen legs (R) & upper body; Hips feel like in alignment after sitting (R hip feels like it is forward). Short Term Goal (STG) Pt will be independent with a self care HEP of hip/knee/ ankle strengthening exercises. (05/30/21: HEP issued for hip and knee flex strengthening, STS without UE support) (06/08/21: Strengthening: Added HEP hip AB; 06/13/21: Added hip Ext. ABD 06/15/21: Added trunk rot) 06/22/21: added R ankle TB PF/ Eccentric DF, EV. (07/18/21: Verbal review of HEP of hip/knee/ankle ex's) STG Duration 06/23/21 (07/18/21: MET GOAL) Skilled Nursing Goal (LTG) Pt will be independent with a self care HEP of core strengthening exercises. (06/19/21: Core strengthening ex HEP issued) (07/20/21: Added HEP trunk flex) LTG Duration 10/16/21 (07/27/21: Clarified trunk strengthening) Assessment Summary Assessment Pt improved in RLE SL stance time and trunk postural alignment self corrections during standing balance activities this tx. Pt able to complete repeated step up/ down w/ 1 rail contact for funtional strengthening. Decrease R hip tightness post SKTC and piriformis stretch. Physical Therapy Plan Frequency and Duration Frequency of Treatment 2x/Week Plan of Care Start Date 07/18/21 Plan of Care End Date 10/16/21 Therapeutic Interventions Therapeutic Interventions Home Exercise Program, Neuromuscular Re-education, Patient/Caregiver Education, Self-Care/Home Management, Therapeutic Activities, Therapeutic Exercises Modalities Cold Pack/Ice Massage,Hot Packs Other Referrals/Consults Referrals/Consults Recommended Dog Hair Clipper: R lateral heel support to assist ankle alignment stability and balance. [employer] recommended [facility] Jemima Chowdhury per [facility]/ PT [facility] suggestions past tx, pt in agreement would be helpful. Next Visit Focus/Plan Next Note Type Treatment Note Next Visit Plan Future tx: discuss with pt lateral R heel built up wedge/ lift support vs referral to beam warper. Recheck: step ups, SKTC give hand out added last tx, L ankle TB, hip abd TB hooklying and gastroc stretch. Progress standing balance saran stepping, NBOS and gait w/ SPC. Continue Strengthening: R Hip ER/IR; R Knee flex, remind pt HEP: ankle DF along with improved mobility. Progress endurance with UBE at end of therapy. POC: focus on neuro- reeducation for balance and improving stability/safety with gait, improving stamina & functional strength of RLE.
--- NOTE | 2021-08-08 11:20 | PT.OTN ---
Current Diagnoses Major depressive disorder, single episode, in full remission (08/08/21) Multiple sclerosis (08/08/21) Muscle weakness (generalized) (08/08/21) Age-related osteoporosis without current pathological fracture (08/08/21) Unspecified abnormalities of gait and mobility (08/08/21) Dizziness and giddiness (08/08/21) Physical Therapy Treatment Note PT-OP-A Visit Information Start: 05/23/21 18:50 Freq: Status: Active Protocol: Document 08/08/21 10:30 SP (Rec: 08/08/21 11:45 SP [id number]) Out-Patient Physical Therapy Visit Information Visit Information Visit Type Treatment Note Visit Start Time 10:30 Visit Stop Time 11:20 Total Visit Minutes 50 Visit Number 17 Number of BELLHOP SERVICE CAPTAIN Visits 1 Evaluation Information Evaluation Date 05/25/21 Precautions Precautions Multiple Sclerosis, Osteoporosis, Dizziness, back pain. R handed. Has life alerts. PT-OP-B Current Condition Start: 05/23/21 18:50 Freq: Status: Active Protocol: Document 05/25/21 11:23 LRN (Rec: 05/25/21 12:06 LRN [id number]) Current Condition History of Current Condition Onset Date 17 yrs ago. Current Complaints Progressive weakness of RLE, since dx'd with MS; spasticity of lisbet LE R>L History of Current Condition Pt reports R foot drop and LE weakness due to MS with R foot dragging for past 10-15 yrs. Has had MS since ~1971, started with numb patches in the legs and clumsy. She has had an AFO for the R ankle foot for 5 yrs ago and wears it intermittently because she can only wear it with one pair of shoes. Pt did not wear the AFO today. States her primary care physician sent her to PT at her request due to having had PT several years ago with Rojelio Slaughter, PT. Neurologist, Natalya Stewart is planning on having her fit for another AFO on R LE that will help her to move the R LE (keep the foot straight and help to raise the foot). Pt reports she sometimes gets dizzy causing LOB without falls. Daughter calls her daily. Prior Treatments and Tests Sees chiropractor every other week. Future Testing and Treatments Planned Fit for RLE brace/AFO; company to contact her within 2-3 weeks. Treatment Goals Patient/Caregiver Goals Pt goal is to work on: *Balance, less LOB (no loss of balance), *Gait, legs not as tired at the end of the day, take longer walks with dog (walking to end of block) *Strengthen R LE to improve ability to lift self into bed at end of day, pushing withGait R leg. Prior Functional Status Baseline Function- Gait Gait with cane. Current Functional Impairments (Reported) Functional Limitations- ADL's Difficulty getting into bed at end of day. Functional Limitations- Mobility/Gait Walks 1/[address] to end of block to mailbox, then home Personal Factors Other Personal Factors That May Effect MS, Osteoporsis, dizziness. Therapy/Recovery PT-OP-C Subjective Start: 05/23/21 18:50 Freq: Status: Active Protocol: Document 08/08/21 10:30 SP (Rec: 08/08/21 11:45 SP [id number]) OP-PT Subjective Patient Comments Patient Comments Pt reports PT-OP-D Balance Start: 05/23/21 18:50 Freq: Status: Active Protocol: Document 07/20/21 10:40 LRN (Rec: 07/20/21 12:17 LRN [id number]) Tinetti Balance Assessment Sitting Balance Sitting Balance Steady, safe Arising from Chair Ability to Arise Able, uses arms to help Attempts to Arise Arises on 1st attempt Standing Balance Immediate Standing Balance Steady w/o support Standing Balance Steady, wide stance Nudged Response Steady Standing with Eyes Closed Steady Turning Step Pattern Turning 360 Degrees Discontinuous steps Stability Turning 360 Degrees Steady Sitting Down Sitting Down Safe, steady Gait and Step Initiation of Gait No hesitancy Right Foot Step Length Does pass stance foot Right Foot Step Height Does not clear floor Left Foot Step Length Does pass stance foot Left Foot Step Height Completely clears floor Step Description Step Symmetry Step length not equal Step Continuity Steps appear continuous Gait Description Path Description Mild/moderate deviation Trunk Description Marked sway or uses aide Walking Stance Heels together Scoring and Interpretation Tinetti Composite Score (points) 20 Interpretation of Scores High risk for falls(< 19) Tinetti Impairment Rating from Composite 20 to <40% Impaired (Score 17- Score 22) PT-OP-E Functional Tests Start: 05/23/21 18:50 Freq: Status: Active Protocol: Document 07/18/21 12:51 LRN (Rec: 07/18/21 13:37 LRN [id number]) Functional Tests Timed Up and Go (TUG) Score 22 Comments Use of GB/SPC/R AFO TUG Impairment Rating 100% Impaired (Score 20) PT-OP-G Mobility & Gait Start: 05/23/21 18:50 Freq: Status: Active Protocol: Document 05/25/21 11:23 LRN (Rec: 05/25/21 12:06 LRN [id number]) OP Gait Assessment Gait Gait Assistance Required: Independent Able to Maintain Weight Bearing Status Yes During Gait Assistive Devices Assistive Device Straight Cane Gait Deviations General Gait Pattern Decreased Stride Length, Decreased Feet Clearance, Lateral Trunk Lean,Narrow Based Gait Factors Limiting Gait Function Factors Limiting Gait Function Abnormal Tonal Influences, Decreased Activity Tolerance, Decreased Strength,Poor Balance Comments Gait Comments Gait with SPC on R side. Pt hold her R leg stiff with the Ankle in inversion. PT-OP-J Posture/Palpation/Skin Start: 05/23/21 18:50 Freq: Status: Active Protocol: Document 05/25/21 11:23 LRN (Rec: 05/25/21 12:06 LRN [id number]) Posture Evaluation Position Standing Head/C-Spine Posture Forward Head Shoulder Posture (L) Elevated Knee Posture (L) Excess Flexion Ankle/Foot Posture (R) Supinated,(R) Calcaneal Inversion Comments Posture Comments L leg long, holds knee flexed. When R knee is straight, the pelvis rotates right. Slight curve of back with apex on the left. PT-OP-K Range of Motion Start: 05/23/21 18:50 Freq: Status: Active Protocol: Document 07/18/21 12:51 LRN (Rec: 07/18/21 13:37 LRN [id number]) Ankle and Foot Goniometric Range of Motion Ankle and Foot Left Active Ankle/Foot ROM WFL Yes Testing Position Sitting Dorsiflexion with Knee Flexed 7 Inversion 30 Eversion 30 Right Active Ankle/Foot ROM WFL No Testing Position Sitting Inversion 35 Eversion 10 Comments Ankle DF with knee flexed is lacking 5 deg's to neutral. PT-OP-M Strength Start: 05/23/21 18:50 Freq: Status: Active Protocol: Document 07/18/21 12:51 LRN (Rec: 07/18/21 13:37 LRN [id number]) Hip Strength Hip Manual Muscle Testing Right Flexion (L2) 5 Normal Extension (S1) 3 Fair Abduction 3- Fair- Adduction 4+ Good+ External Rotation 3 Fair Internal Rotation 3+ Fair+ Left Flexion (L2) 5 Normal Extension (S1) 5 Normal Abduction 5 Normal Adduction 5 Normal External Rotation 5 Normal Internal Rotation 4+ Good+ Knee Strength Knee Manual Muscle Testing Right Flexion (S2) 3+ Fair+ Extension (L3) 5 Normal Left Flexion (S2) 5 Normal Extension (L3) 5 Normal Ankle/Foot Strength Ankle and Foot Manual Muscle Testing Right Dorsiflexion (L4) 3- Fair- Plantarflexion (S1) 5 Normal Inversion 5 Normal Eversion (S1) 3- Fair- PT-OP-Q Treatments Start: 05/23/21 18:50 Freq: Status: Active Protocol: Document 08/08/21 10:30 SP (Rec: 08/08/21 11:45 SP [id number]) Cardio Equipment Recumbent Elliptical (Geodruid) Duration (Minutes) 8 Resistance 2>1 Seat Position 8 Other without AFO, LEs only, 45-50 RPM, Total steps: 696 Therapeutic Exercises Sitting Exercises HS and piriformis stretch Sitting Exercise Name piriformis stretch Side right Equipment Used seated on stationary chair Reps/Minutes 60, recommended 3x/day previous tx Comments R hip ER tighter than L. Hip flex w/ER Sitting Exercise Name R heel slide from ankle to knee Side right Reps/Minutes 10x 1 reps Comments Assist to lift the R LE. STS Sitting Exercise Name reviewed HEP- eccentric chair tap Resistance AROM hands front Equipment Used 18 chair, cued contact chair slow descent Reps/Minutes x12 Comments cued wt foot triangle,not leanwith LEs, hip hinge slow descent, ft/knees // Hip Flex Sitting Exercise Name SKTC stretch Side right Resistance AROM Reps/Minutes 30 Comments decreased R hip tightness Neuro Re-Education Treatment Balance Activities step taps Details R hip flexion con/ eccentric, R hip stab during LLE movement Surface firm Equipment 6 step, rail contact PRN Reps/Duration 5 reps x4 sets Comments cued tall postural alignment, R hip flexion no hip hike, R hip stability stance LE w/ core and hip abd fac during LLE mobility ascend/descend fwd/bwd walking Details no AFO RLE Surface firm Equipment in //bars w/contact PRN Reps/Duration 2 laps Comments cued tall posture, increase ARMANDO, core/ hip abd facilitation Step up, over, retro Equipment 6 step Comments in // bars hurdles Details single saran step over back Surface firm Equipment 1 //bar if needed PRN Reps/Duration 2x5 reps each LE Comments CG- 10%A cued tall posture/ core/ hip abd fac, RLE hip/ knee flexion clear saran, LOB x1 rail and 10%A during RLE stance/ LLE stepping back to start position. Self-Care/Home Management Treatment Education Patient Education Body Mechanics,Home Exercise Program,Posture,Safety Other Education Initiated step ups w/1 rail support for functional strengthening and safe balance activity for home. PT-OP-T Assessment and Plan Start: 05/23/21 18:50 Freq: Status: Active Protocol: Document 08/08/21 10:30 SP (Rec: 08/08/21 11:45 SP [id number]) Physical Therapy Assessment Goals Six Impairment Decreased functional strength Impairment Pt has difficulty raising R leg to put leg in pants. Nursing Home Goal (LTG) Pt will be able to lift R leg (in sitting) for ease of dressing (to put leg in pants) . LTG Duration 10/16/21 Five Impairment Decreased stamina Short Term Goal (STG) Pt will be able to tolerate 10 minutes of upper body strengthening during a 38 miniute therapy session. STG Duration 08/17/21 Nursing Home Goal (LTG) Pt will have greater confidence in her walking as demonstrated by improved TUG score of 14 or less. (07/18/21: TUG 22 secs w/AFO/ cane. 05/30/21: TUG 15 w/ AFO/cane). LTG Duration 10/16/21 Four Impairment Gait dysfunction Impairment R foot drop with occasional catching of toes. Short Term Goal (STG) Increase R hip/knee/ankle strength by 1/2 grade. (07/18/21: NOT MET for: R Hip ER/IR; R Knee flex) STG Duration 08/17/21 (07/18/21: Goal mostly met) Nursing Home Goal (LTG) Legs not as tired at the end of the day with pt able to take her dog on a longer walk to end of block and back. 07/11/20: Pt only able to walk dog out to go to bathroom with cold bad weather, pre bad weather only able walk dog 3 drive[address] and back, uses SPC in LUE. PLOF reported during good weather days was able to walk approx total 1/4 mile. LTG Duration 10/16/21 (07/11/20: progressing) Three Impairment Decreased Balance Impairment Loss of balance without fall 2x/day in home. Program Director/Traffic Director Goal (LTG) Improve balance with less reported LOB or no loss of balance with gait in home with more consistent use of AFO. 06/27/21: improved balanced gait, less R hip lateral ankle / hip deviations with new sneakers 9.5 (1 whole size larger). 07/11/20: pt reported had 2 falls ([address], 1 in kitchen) due to toe catching floor but not sure which foot caught the floor since last tx . Not sure why, maybe due to new sneakers 1 whole size bigger at 9.5 for AFO fit, vs 8.5. (07/18/21: No falls the past week, occasional LOB without fall) LTG Duration 10/16/21 (07/18/21: Progressing) Two Impairment Decreased R LE strength Impairment Hip: Flexion 5/5 L, 4+/5 R; ER 3-/5 R, 2/5 L; IR 4+/5 bilaterally. Knee: Flex: 4/5 bilaterally; Ext: 3+/5 R, 5/5 L Ankle: Left: generally 5/5; Right: DF 2+/5, PF 3+/5, IV 3/ 5, EV 2/5. Short Term Goal (STG) Improve R ankle: generally 3+/ 5, R Knee: generally 4+/5; R hip AB 4/5 (07/11/20: HEP R ankle EV, DF TB #1). (07/18/21: R ankle: PF/IV is 5 /5 & DF/EV is 3-/5; R knee: Flex 3+/5, Ext 5/5; Hip AB 3-/ 5), STG Duration 08/17/21 (07/18/21: Improved) Program Director/Traffic Director Goal (LTG) Increase R LE strength with pt able to lift self into bed at end of day with use of R leg. 07/11/20: GOAL MET: pt reports is able to lift RLE into bed now without UE support. (07/18/21: Able to boost self into bed 75% of the time.) LTG Duration GOAL MET 07/11/20 One Impairment HEP Impairment Pt goals received 05/30/21: Strengthen legs (R) & upper body; Hips feel like in alignment after sitting (R hip feels like it is forward). Short Term Goal (STG) Pt will be independent with a self care HEP of hip/knee/ ankle strengthening exercises. (05/30/21: HEP issued for hip and knee flex strengthening, STS without UE support) (06/08/21: Strengthening: Added HEP hip AB; 06/13/21: Added hip Ext. ABD 06/15/21: Added trunk rot) 06/22/21: added R ankle TB PF/ Eccentric DF, EV. (07/18/21: Verbal review of HEP of hip/knee/ankle ex's) STG Duration 06/23/21 (07/18/21: MET GOAL) Program Director/Traffic Director Goal (LTG) Pt will be independent with a self care HEP of core strengthening exercises. (06/19/21: Core strengthening ex HEP issued) (07/20/21: Added HEP trunk flex) LTG Duration 10/16/21 (07/27/21: Clarified trunk strengthening) Assessment Summary Assessment Pt improved in RLE SL stance time and trunk postural alignment self corrections during standing balance activities this tx. Pt able to complete repeated step up/ down w/ 1 rail contact for funtional strengthening. Decrease R hip tightness post SKTC and piriformis stretch. Physical Therapy Plan Frequency and Duration Frequency of Treatment 2x/Week Plan of Care Start Date 07/18/21 Plan of Care End Date 10/16/21 Therapeutic Interventions Therapeutic Interventions Home Exercise Program, Neuromuscular Re-education, Patient/Caregiver Education, Self-Care/Home Management, Therapeutic Activities, Therapeutic Exercises Modalities Cold Pack/Ice Massage,Hot Packs Other Referrals/Consults Referrals/Consults Recommended Warehouse Administrative Assistant: R lateral heel support to assist ankle alignment stability and balance. BELLHOP SERVICE CAPTAIN recommended [facility] Jem[facility] Chowdhury per [facility]/ PT [facility]igna suggestions past tx, pt in agreement would be helpful. Next Visit Focus/Plan Next Note Type Treatment Note Next Visit Plan Future tx: discuss with pt lateral R heel built up wedge/ lift support vs referral to insurance producer. Recheck: step ups, SKTC give hand out added last tx, L ankle TB, hip abd TB hooklying and gastroc stretch. Progress standing balance saran stepping, NBOS and gait w/ SPC. Continue Strengthening: R Hip ER/IR; R Knee flex, remind pt HEP: ankle DF along with improved mobility. Progress endurance with UBE at end of therapy. POC: focus on neuro- reeducation for balance and improving stability/safety with gait, improving stamina & functional strength of RLE.
--- NOTE | 2021-08-10 11:15 | PT.OTN ---
Current Diagnoses Major depressive disorder, single episode, in full remission (08/10/21) Multiple sclerosis (08/10/21) Muscle weakness (generalized) (08/10/21) Age-related osteoporosis without current pathological fracture (08/10/21) Unspecified abnormalities of gait and mobility (08/10/21) Dizziness and giddiness (08/10/21) Physical Therapy Treatment Note PT-OP-A Visit Information Start: 05/23/21 18:50 Freq: Status: Active Protocol: Document 08/10/21 10:32 SP (Rec: 08/10/21 11:27 SP [id number]) Out-Patient Physical Therapy Visit Information Visit Information Visit Type Treatment Note Visit Start Time 10:32 Visit Stop Time 11:15 Total Visit Minutes 43 Visit Number 18 Number of BODY SHOP WORKER Visits 2 Evaluation Information Evaluation Date 05/25/21 Precautions Precautions Multiple Sclerosis, Osteoporosis, Dizziness, back pain. R handed. Has life alerts. PT-OP-B Current Condition Start: 05/23/21 18:50 Freq: Status: Active Protocol: Document 05/25/21 11:23 LRN (Rec: 05/25/21 12:06 LRN [id number]) Current Condition History of Current Condition Onset Date 17 yrs ago. Current Complaints Progressive weakness of RLE, since dx'd with MS; spasticity of lisbet LE R>L History of Current Condition Pt reports R foot drop and LE weakness due to MS with R foot dragging for past 10-15 yrs. Has had MS since ~1971, started with numb patches in the legs and clumsy. She has had an AFO for the R ankle foot for 5 yrs ago and wears it intermittently because she can only wear it with one pair of shoes. Pt did not wear the AFO today. States her primary care physician sent her to PT at her request due to having had PT several years ago with Rojelio Slaughter, PT. Neurologist, Natalya Stewart is planning on having her fit for another AFO on R LE that will help her to move the R LE (keep the foot straight and help to raise the foot). Pt reports she sometimes gets dizzy causing LOB without falls. Daughter calls her daily. Prior Treatments and Tests Sees chiropractor every other week. Future Testing and Treatments Planned Fit for RLE brace/AFO; company to contact her within 2-3 weeks. Treatment Goals Patient/Caregiver Goals Pt goal is to work on: *Balance, less LOB (no loss of balance), *Gait, legs not as tired at the end of the day, take longer walks with dog (walking to end of block) *Strengthen R LE to improve ability to lift self into bed at end of day, pushing withGait R leg. Prior Functional Status Baseline Function- Gait Gait with cane. Current Functional Impairments (Reported) Functional Limitations- ADL's Difficulty getting into bed at end of day. Functional Limitations- Mobility/Gait Walks 1/[address] to end of block to mailbox, then home Personal Factors Other Personal Factors That May Effect MS, Osteoporsis, dizziness. Therapy/Recovery PT-OP-C Subjective Start: 05/23/21 18:50 Freq: Status: Active Protocol: Document 08/10/21 10:32 SP (Rec: 08/10/21 11:27 SP [id number]) OP-PT Subjective Patient Comments Patient Comments Pt states I spoke with the nurse and discussed the medication and side affects of nightmares so instructed to stop and will be prescribing another for assessment of benefits of decrease her over active bladder at night. Pt states cautious another medication with similar side effects. She said will try and hope it helps. She stated she recently started taking an edible at night for assistance with sleep and noted didn't wake up between 4-6 am like usually happens. Pt stated has an appt with [facility] 08/15 for assessment AFO and R ankle stability if need lateral support for decrease R lateral ankle WB during midstance to toe off gait. Pt stated will call MS physician who initially suggested referral for AFO, making sure has referral if needed to be sure coverage for appt. PT-OP-D Balance Start: 05/23/21 18:50 Freq: Status: Active Protocol: Document 07/20/21 10:40 LRN (Rec: 07/20/21 12:17 LRN [id number]) Tinetti Balance Assessment Sitting Balance Sitting Balance Steady, safe Arising from Chair Ability to Arise Able, uses arms to help Attempts to Arise Arises on 1st attempt Standing Balance Immediate Standing Balance Steady w/o support Standing Balance Steady, wide stance Nudged Response Steady Standing with Eyes Closed Steady Turning Step Pattern Turning 360 Degrees Discontinuous steps Stability Turning 360 Degrees Steady Sitting Down Sitting Down Safe, steady Gait and Step Initiation of Gait No hesitancy Right Foot Step Length Does pass stance foot Right Foot Step Height Does not clear floor Left Foot Step Length Does pass stance foot Left Foot Step Height Completely clears floor Step Description Step Symmetry Step length not equal Step Continuity Steps appear continuous Gait Description Path Description Mild/moderate deviation Trunk Description Marked sway or uses aide Walking Stance Heels together Scoring and Interpretation Tinetti Composite Score (points) 20 Interpretation of Scores High risk for falls(< 19) Tinetti Impairment Rating from Composite 20 to <40% Impaired (Score 17- Score 22) PT-OP-E Functional Tests Start: 05/23/21 18:50 Freq: Status: Active Protocol: Document 08/10/21 10:32 SP (Rec: 08/10/21 11:27 SP [id number]) Functional Tests 6 Minute Walk Test Distance 591 Device Used SPC Comments cued level pelvis, R hip flexion foot clearance, no hip hike PT-OP-G Mobility & Gait Start: 05/23/21 18:50 Freq: Status: Active Protocol: Document 05/25/21 11:23 LRN (Rec: 05/25/21 12:06 LRN [id number]) OP Gait Assessment Gait Gait Assistance Required: Independent Able to Maintain Weight Bearing Status Yes During Gait Assistive Devices Assistive Device Straight Cane Gait Deviations General Gait Pattern Decreased Stride Length, Decreased Feet Clearance, Lateral Trunk Lean,Narrow Based Gait Factors Limiting Gait Function Factors Limiting Gait Function Abnormal Tonal Influences, Decreased Activity Tolerance, Decreased Strength,Poor Balance Comments Gait Comments Gait with SPC on R side. Pt hold her R leg stiff with the Ankle in inversion. PT-OP-J Posture/Palpation/Skin Start: 05/23/21 18:50 Freq: Status: Active Protocol: Document 05/25/21 11:23 LRN (Rec: 05/25/21 12:06 LRN [id number]) Posture Evaluation Position Standing Head/C-Spine Posture Forward Head Shoulder Posture (L) Elevated Knee Posture (L) Excess Flexion Ankle/Foot Posture (R) Supinated,(R) Calcaneal Inversion Comments Posture Comments L leg long, holds knee flexed. When R knee is straight, the pelvis rotates right. Slight curve of back with apex on the left. PT-OP-K Range of Motion Start: 05/23/21 18:50 Freq: Status: Active Protocol: Document 07/18/21 12:51 LRN (Rec: 07/18/21 13:37 LRN [id number]) Ankle and Foot Goniometric Range of Motion Ankle and Foot Left Active Ankle/Foot ROM WFL Yes Testing Position Sitting Dorsiflexion with Knee Flexed 7 Inversion 30 Eversion 30 Right Active Ankle/Foot ROM WFL No Testing Position Sitting Inversion 35 Eversion 10 Comments Ankle DF with knee flexed is lacking 5 deg's to neutral. PT-OP-M Strength Start: 05/23/21 18:50 Freq: Status: Active Protocol: Document 07/18/21 12:51 LRN (Rec: 07/18/21 13:37 LRN [id number]) Hip Strength Hip Manual Muscle Testing Right Flexion (L2) 5 Normal Extension (S1) 3 Fair Abduction 3- Fair- Adduction 4+ Good+ External Rotation 3 Fair Internal Rotation 3+ Fair+ Left Flexion (L2) 5 Normal Extension (S1) 5 Normal Abduction 5 Normal Adduction 5 Normal External Rotation 5 Normal Internal Rotation 4+ Good+ Knee Strength Knee Manual Muscle Testing Right Flexion (S2) 3+ Fair+ Extension (L3) 5 Normal Left Flexion (S2) 5 Normal Extension (L3) 5 Normal Ankle/Foot Strength Ankle and Foot Manual Muscle Testing Right Dorsiflexion (L4) 3- Fair- Plantarflexion (S1) 5 Normal Inversion 5 Normal Eversion (S1) 3- Fair- PT-OP-Q Treatments Start: 05/23/21 18:50 Freq: Status: Active Protocol: Document 08/10/21 10:32 SP (Rec: 08/10/21 11:27 SP [id number]) Cardio Equipment Recumbent Stepper (Sci-Fit) Duration (Minutes) 8 Resistance 2 Other LEs only- good effort, cued knees apart // Therapeutic Exercises Sitting Exercises hip flexion stretch Sitting Exercise Name SKTC stretch- Side right Reps/Minutes 30 x2 Comments good feedback stretch I did at night and helped decr spasticity Hip Flex Sitting Exercise Name hip flexion then eccentric lowering Side right Resistance AROM Reps/Minutes x5 reps, not as high as reps proressed Comments discussed incorporate with putting on pants RLE Gait Training Gait Activity 6MWT Device Used SPC Level of Assistance S Surface firm Distance/Duration 591 ft in 6 min, 671 total Treatment Focus level pelvis, R knee flexion w / foot clearance, decrease hip hike Comments cued tall posture, TA awareness, level pelvis w/ R knee flexion advancement to allow foot clearance and no hip hike compensations on R, 2pt gait. Neuro Re-Education Treatment Balance Activities Side stepping Details TA/Sidestepping (R leg straight & Leg bent) Surface Level Equipment rail facing Reps/Duration 4 laps Comments Cuing for tall posture, R hip abd fac tucked under trunk during LLE advancement, slow stepping for balance. improved opposite UE contact rail. Decreased R hip hike PT-OP-T Assessment and Plan Start: 05/23/21 18:50 Freq: Status: Active Protocol: Document 08/10/21 10:32 SP (Rec: 08/10/21 11:27 SP [id number]) Physical Therapy Assessment Goals Six Impairment Decreased functional strength Impairment Pt has difficulty raising R leg to put leg in pants. 08/10/21: pt states still bending over and putting on pants. Suggested Cross RLE over L place pant on foot then eccentrically lower RLE into pant leg for added strengthening. [place] Reporter Goal (LTG) Pt will be able to lift R leg (in sitting) for ease of dressing (to put leg in pants) . 08/10/21: Progressing can lift RLE off ground about 5 inches intially then as reps progress not as high but only hold 2 sec before need to slow lower. LTG Duration 10/16/21 (08/10/21 progressing) Five Impairment Decreased stamina Short Term Goal (STG) Pt will be able to tolerate 10 minutes of upper body strengthening during a 38 miniute therapy session. STG Duration 08/17/21 [place] Reporter Goal (LTG) Pt will have greater confidence in her walking as demonstrated by improved TUG score of 14 or less. (07/18/21: TUG 22 secs w/AFO/ cane. 05/30/21: TUG 15 w/ AFO/cane). LTG Duration 10/16/21 Four Impairment Gait dysfunction Impairment R foot drop with occasional catching of toes. Short Term Goal (STG) Increase R hip/knee/ankle strength by 1/2 grade. (07/18/21: NOT MET for: R Hip ER/IR; R Knee flex) STG Duration 08/17/21 (07/18/21: Goal mostly met) Care Home Goal (LTG) Legs not as tired at the end of the day with pt able to take her dog on a longer walk to end of block and back. 07/11/20: Pt only able to walk dog out to go to bathroom with cold bad weather, pre bad weather only able walk dog 3 drive[address] and back, uses SPC in LUE. PLOF reported during good weather days was able to walk approx total 1/4 mile. LTG Duration 10/16/21 (07/11/20: progressing) Three Impairment Decreased Balance Impairment Loss of balance without fall 2x/day in home. Care Home Goal (LTG) Improve balance with less reported LOB or no loss of balance with gait in home with more consistent use of AFO. 06/27/21: improved balanced gait, less R hip lateral ankle / hip deviations with new sneakers 9.5 (1 whole size larger). 07/11/20: pt reported had 2 falls (1 [address], 1 in kitchen) due to toe catching floor but not sure which foot caught the floor since last tx . Not sure why, maybe due to new sneakers 1 whole size bigger at 9.5 for AFO fit, vs 8.5. (07/18/21: No falls the past week, occasional LOB without fall) LTG Duration 10/16/21 (07/18/21: Progressing) Two Impairment Decreased R LE strength Impairment Hip: Flexion 5/5 L, 4+/5 R; ER 3-/5 R, 2/5 L; IR 4+/5 bilaterally. Knee: Flex: 4/5 bilaterally; Ext: 3+/5 R, 5/5 L Ankle: Left: generally 5/5; Right: DF 2+/5, PF 3+/5, IV 3/ 5, EV 2/5. Short Term Goal (STG) Improve R ankle: generally 3+/ 5, R Knee: generally 4+/5; R hip AB 4/5 (07/11/20: HEP R ankle EV, DF TB #1). (07/18/21: R ankle: PF/IV is 5 /5 & DF/EV is 3-/5; R knee: Flex 3+/5, Ext 5/5; Hip AB 3-/ 5), STG Duration 08/17/21 (07/18/21: Improved) [place] Reporter Goal (LTG) Increase R LE strength with pt able to lift self into bed at end of day with use of R leg. 07/11/20: GOAL MET: pt reports is able to lift RLE into bed now without UE support. (07/18/21: Able to boost self into bed 75% of the time.) LTG Duration GOAL MET 07/11/20 One Impairment HEP Impairment Pt goals received 05/30/21: Strengthen legs (R) & upper body; Hips feel like in alignment after sitting (R hip feels like it is forward). Short Term Goal (STG) Pt will be independent with a self care HEP of hip/knee/ ankle strengthening exercises. (05/30/21: HEP issued for hip and knee flex strengthening, STS without UE support) (06/08/21: Strengthening: Added HEP hip AB; 06/13/21: Added hip Ext. ABD 06/15/21: Added trunk rot) 06/22/21: added R ankle TB PF/ Eccentric DF, EV. (07/18/21: Verbal review of HEP of hip/knee/ankle ex's) STG Duration 06/23/21 (07/18/21: MET GOAL) [place] Reporter Goal (LTG) Pt will be independent with a self care HEP of core strengthening exercises. (06/19/21: Core strengthening ex HEP issued) (07/20/21: Added HEP trunk flex) LTG Duration 10/16/21 (07/27/21: Clarified trunk strengthening) Assessment Summary Assessment Pt discussed use of hip/knee flexion exercise with donning pants with good understanding eccentric strengthening. Pt improved self corrections with side stepping this tx post initial ed where self posture alignment. Pt completed 6MWT, improved starts to compensate R hip elevation aprox 4 min, improves with cues. Physical Therapy Plan Frequency and Duration Frequency of Treatment 2x/Week Plan of Care Start Date 07/18/21 Plan of Care End Date 10/16/21 Therapeutic Interventions Therapeutic Interventions Home Exercise Program, Neuromuscular Re-education, Patient/Caregiver Education, Self-Care/Home Management, Therapeutic Activities, Therapeutic Exercises Modalities Cold Pack/Ice Massage,Hot Packs Other Referrals/Consults Referrals/Consults Recommended Senior Abap Developer: R lateral heel support to assist ankle alignment stability and balance. BODY SHOP WORKER recommended [facility] per [facility]/ PT [facility] suggestions past tx, pt in agreement would be helpful. Next Visit Focus/Plan Next Note Type Treatment Note Next Visit Plan next tx add heel raises for toe off strengthening gait Recheck: step ups, SKTC stretch and give hand out added last tx, L ankle TB, hip abd TB hooklying and gastroc stretch. Progress standing balance saran stepping, NBOS and gait w/ SPC. Continue Strengthening: R Hip ER/IR; R Knee flex, remind pt HEP: ankle DF along with improved mobility. Progress endurance with UBE at end of therapy. POC: focus on neuro- reeducation for balance and improving stability/safety with gait, improving stamina & functional strength of RLE.
--- NOTE | 2021-08-15 11:20 | PT.OTN ---
Current Diagnoses Major depressive disorder, single episode, in full remission (08/15/21) Multiple sclerosis (08/15/21) Muscle weakness (generalized) (08/15/21) Age-related osteoporosis without current pathological fracture (08/15/21) Unspecified abnormalities of gait and mobility (08/15/21) Dizziness and giddiness (08/15/21) Physical Therapy Treatment Note PT-OP-A Visit Information Start: 05/23/21 18:50 Freq: Status: Active Protocol: Document 08/15/21 10:32 SP (Rec: 08/15/21 11:39 SP [id number]) Out-Patient Physical Therapy Visit Information Visit Information Visit Type Treatment Note Visit Start Time 10:32 Visit Stop Time 11:20 Total Visit Minutes 48 Visit Number 19 Number of CLIENT TECHNOLOGIES SPECIALIST Visits 3 Evaluation Information Evaluation Date 05/25/21 Precautions Precautions Multiple Sclerosis, Osteoporosis, Dizziness, back pain. R handed. Has life alerts. PT-OP-B Current Condition Start: 05/23/21 18:50 Freq: Status: Active Protocol: Document 05/25/21 11:23 LRN (Rec: 05/25/21 12:06 LRN [id number]) Current Condition History of Current Condition Onset Date 17 yrs ago. Current Complaints Progressive weakness of RLE, since dx'd with MS; spasticity of lisbet LE R>L History of Current Condition Pt reports R foot drop and LE weakness due to MS with R foot dragging for past 10-15 yrs. Has had MS since ~1971, started with numb patches in the legs and clumsy. She has had an AFO for the R ankle foot for 5 yrs ago and wears it intermittently because she can only wear it with one pair of shoes. Pt did not wear the AFO today. States her primary care physician sent her to PT at her request due to having had PT several years ago with Rojelio Slaughter, PT. Neurologist, Natalya Stewart is planning on having her fit for another AFO on R LE that will help her to move the R LE (keep the foot straight and help to raise the foot). Pt reports she sometimes gets dizzy causing LOB without falls. Daughter calls her daily. Prior Treatments and Tests Sees chiropractor every other week. Future Testing and Treatments Planned Fit for RLE brace/AFO; company to contact her within 2-3 weeks. Treatment Goals Patient/Caregiver Goals Pt goal is to work on: *Balance, less LOB (no loss of balance), *Gait, legs not as tired at the end of the day, take longer walks with dog (walking to end of block) *Strengthen R LE to improve ability to lift self into bed at end of day, pushing withGait R leg. Prior Functional Status Baseline Function- Gait Gait with cane. Current Functional Impairments (Reported) Functional Limitations- ADL's Difficulty getting into bed at end of day. Functional Limitations- Mobility/Gait Walks 1/[address] to end of block to mailbox, then home Personal Factors Other Personal Factors That May Effect MS, Osteoporsis, dizziness. Therapy/Recovery PT-OP-C Subjective Start: 05/23/21 18:50 Freq: Status: Active Protocol: Document 08/15/21 10:32 SP (Rec: 08/15/21 11:39 SP [id number]) OP-PT Subjective Patient Comments Patient Comments Pt states has an appt with [facility] for assessment of AFO and ankle support for success walking. Pt stated hasn't had headaches or nightmares since stopped the medication for over active bladder. Pt states has been taking edibles and feels doing well sleeping, still gets up 4-6x/night. She states uncertain want to fill 2nd perscription for over active bladder due to told has same side effects. Pt stated has been able to do theraband exercises 1x since last tx and felt fine. She states will continue to do at home seeign how no more headaches, maybe it was just the medication causing headaches and not TB. Went [place] hike [place] [address] [place] over 1/2 miles round trip, did take rests on benches. PT-OP-D Balance Start: 05/23/21 18:50 Freq: Status: Active Protocol: Document 07/20/21 10:40 LRN (Rec: 07/20/21 12:17 LRN [id number]) Tinetti Balance Assessment Sitting Balance Sitting Balance Steady, safe Arising from Chair Ability to Arise Able, uses arms to help Attempts to Arise Arises on 1st attempt Standing Balance Immediate Standing Balance Steady w/o support Standing Balance Steady, wide stance Nudged Response Steady Standing with Eyes Closed Steady Turning Step Pattern Turning 360 Degrees Discontinuous steps Stability Turning 360 Degrees Steady Sitting Down Sitting Down Safe, steady Gait and Step Initiation of Gait No hesitancy Right Foot Step Length Does pass stance foot Right Foot Step Height Does not clear floor Left Foot Step Length Does pass stance foot Left Foot Step Height Completely clears floor Step Description Step Symmetry Step length not equal Step Continuity Steps appear continuous Gait Description Path Description Mild/moderate deviation Trunk Description Marked sway or uses aide Walking Stance Heels together Scoring and Interpretation Tinetti Composite Score (points) 20 Interpretation of Scores High risk for falls(< 19) Tinetti Impairment Rating from Composite 20 to <40% Impaired (Score 17- Score 22) PT-OP-E Functional Tests Start: 05/23/21 18:50 Freq: Status: Active Protocol: Document 08/10/21 10:32 SP (Rec: 08/10/21 11:27 SP [id number]) Functional Tests 6 Minute Walk Test Distance 591 Device Used SPC Comments cued level pelvis, R hip flexion foot clearance, no hip hike PT-OP-G Mobility & Gait Start: 05/23/21 18:50 Freq: Status: Active Protocol: Document 05/25/21 11:23 LRN (Rec: 05/25/21 12:06 LRN [id number]) OP Gait Assessment Gait Gait Assistance Required: Independent Able to Maintain Weight Bearing Status Yes During Gait Assistive Devices Assistive Device Straight Cane Gait Deviations General Gait Pattern Decreased Stride Length, Decreased Feet Clearance, Lateral Trunk Lean,Narrow Based Gait Factors Limiting Gait Function Factors Limiting Gait Function Abnormal Tonal Influences, Decreased Activity Tolerance, Decreased Strength,Poor Balance Comments Gait Comments Gait with SPC on R side. Pt hold her R leg stiff with the Ankle in inversion. PT-OP-J Posture/Palpation/Skin Start: 05/23/21 18:50 Freq: Status: Active Protocol: Document 05/25/21 11:23 LRN (Rec: 05/25/21 12:06 LRN [id number]) Posture Evaluation Position Standing Head/C-Spine Posture Forward Head Shoulder Posture (L) Elevated Knee Posture (L) Excess Flexion Ankle/Foot Posture (R) Supinated,(R) Calcaneal Inversion Comments Posture Comments L leg long, holds knee flexed. When R knee is straight, the pelvis rotates right. Slight curve of back with apex on the left. PT-OP-K Range of Motion Start: 05/23/21 18:50 Freq: Status: Active Protocol: Document 07/18/21 12:51 LRN (Rec: 07/18/21 13:37 LRN [id number]) Ankle and Foot Goniometric Range of Motion Ankle and Foot Left Active Ankle/Foot ROM WFL Yes Testing Position Sitting Dorsiflexion with Knee Flexed 7 Inversion 30 Eversion 30 Right Active Ankle/Foot ROM WFL No Testing Position Sitting Inversion 35 Eversion 10 Comments Ankle DF with knee flexed is lacking 5 deg's to neutral. PT-OP-M Strength Start: 05/23/21 18:50 Freq: Status: Active Protocol: Document 07/18/21 12:51 LRN (Rec: 07/18/21 13:37 LRN [id number]) Hip Strength Hip Manual Muscle Testing Right Flexion (L2) 5 Normal Extension (S1) 3 Fair Abduction 3- Fair- Adduction 4+ Good+ External Rotation 3 Fair Internal Rotation 3+ Fair+ Left Flexion (L2) 5 Normal Extension (S1) 5 Normal Abduction 5 Normal Adduction 5 Normal External Rotation 5 Normal Internal Rotation 4+ Good+ Knee Strength Knee Manual Muscle Testing Right Flexion (S2) 3+ Fair+ Extension (L3) 5 Normal Left Flexion (S2) 5 Normal Extension (L3) 5 Normal Ankle/Foot Strength Ankle and Foot Manual Muscle Testing Right Dorsiflexion (L4) 3- Fair- Plantarflexion (S1) 5 Normal Inversion 5 Normal Eversion (S1) 3- Fair- PT-OP-Q Treatments Start: 05/23/21 18:50 Freq: Status: Active Protocol: Document 08/15/21 10:32 SP (Rec: 08/15/21 11:39 SP [id number]) Cardio Equipment Recumbent Stepper (Sci-Fit) Duration (Minutes) 12 Resistance 2.5 Seat Position 7 Other UE/ LEs good effort, 45-50 PRM , 1.42 miles Therapeutic Exercises Sitting Exercises ankle EV, PF Sitting Exercise Name DF, EV, PF ( added DF to HEP) Side right Resistance TB #2 Reps/Minutes x10 Reviewed (2x10 home) Comments cued ankle alignment: EV during PF/ DF ex Neuro Re-Education Treatment Balance Activities corner balance Details NBOS, stagger, tandem- added to HEP Surface firm Equipment //bar> (in corner:corner at back, back of chair at front for steady balance Reps/Duration 20 min Comments NBOS: head turns, EC 30s Stagger: R forward: head turn & EC 24 sec before LOB chair contact L forward: head turn & EC 24 sec before wt shift out of midline self corrrections,no LOB Tandem: EO trunk sways, intermittent wall and chair contact- safe. Understands EO only during tandem at home. Self-Care/Home Management Treatment Education Patient Education Body Mechanics,Home Exercise Program,Posture,Safety Other Education Initiated DF TB for home strengthening LLE, corner balance w/ chair: NBOS, stagger, tandem for HEP, see hand out PT-OP-T Assessment and Plan Start: 05/23/21 18:50 Freq: Status: Active Protocol: Document 08/15/21 10:32 SP (Rec: 08/15/21 11:39 SP [id number]) Physical Therapy Assessment Goals Six Impairment Decreased functional strength Impairment Pt has difficulty raising R leg to put leg in pants. 08/10/21: pt states still bending over and putting on pants. Suggested Cross RLE over L place pant on foot then eccentrically lower RLE into pant leg for added strengthening. Chcf Goal (LTG) Pt will be able to lift R leg (in sitting) for ease of dressing (to put leg in pants) . 08/10/21: Progressing can lift RLE off ground about 5 inches intially then as reps progress not as high but only hold 2 sec before need to slow lower. LTG Duration 10/16/21 (08/10/21 progressing) Five Impairment Decreased stamina Short Term Goal (STG) Pt will be able to tolerate 10 minutes of upper body strengthening during a 38 miniute therapy session. STG Duration 08/17/21 Technology And Engineering Teacher Goal (LTG) Pt will have greater confidence in her walking as demonstrated by improved TUG score of 14 or less. (07/18/21: TUG 22 secs w/AFO/ cane. 05/30/21: TUG 15 w/ AFO/cane). LTG Duration 10/16/21 Four Impairment Gait dysfunction Impairment R foot drop with occasional catching of toes. Short Term Goal (STG) Increase R hip/knee/ankle strength by 1/2 grade. (07/18/21: NOT MET for: R Hip ER/IR; R Knee flex) STG Duration 08/17/21 (07/18/21: Goal mostly met) Technology And Engineering Teacher Goal (LTG) Legs not as tired at the end of the day with pt able to take her dog on a longer walk to end of block and back. 07/11/20: Pt only able to walk dog out to go to bathroom with cold bad weather, pre bad weather only able walk dog 3 drive[address] and back, uses SPC in LUE. PLOF reported during good weather days was able to walk approx total 1/4 mile. LTG Duration 10/16/21 (07/11/20: progressing) Three Impairment Decreased Balance Impairment Loss of balance without fall 2x/day in home. Technology And Engineering Teacher Goal (LTG) Improve balance with less reported LOB or no loss of balance with gait in home with more consistent use of AFO. 06/27/21: improved balanced gait, less R hip lateral ankle / hip deviations with new sneakers 9.5 (1 whole size larger). 07/11/20: pt reported had 2 falls (1 [address], 1 in kitchen) due to toe catching floor but not sure which foot caught the floor since last tx . Not sure why, maybe due to new sneakers 1 whole size bigger at 9.5 for AFO fit, vs 8.5. (07/18/21: No falls the past week, occasional LOB without fall) LTG Duration 10/16/21 (07/18/21: Progressing) Two Impairment Decreased R LE strength Impairment Hip: Flexion 5/5 L, 4+/5 R; ER 3-/5 R, 2/5 L; IR 4+/5 bilaterally. Knee: Flex: 4/5 bilaterally; Ext: 3+/5 R, 5/5 L Ankle: Left: generally 5/5; Right: DF 2+/5, PF 3+/5, IV 3/ 5, EV 2/5. Short Term Goal (STG) Improve R ankle: generally 3+/ 5, R Knee: generally 4+/5; R hip AB 4/5 (07/11/20: HEP R ankle EV, DF TB #1). (07/18/21: R ankle: PF/IV is 5 /5 & DF/EV is 3-/5; R knee: Flex 3+/5, Ext 5/5; Hip AB 3-/ 5), STG Duration 08/17/21 (07/18/21: Improved) Technology And Engineering Teacher Goal (LTG) Increase R LE strength with pt able to lift self into bed at end of day with use of R leg. 07/11/20: GOAL MET: pt reports is able to lift RLE into bed now without UE support. (07/18/21: Able to boost self into bed 75% of the time.) LTG Duration GOAL MET 07/11/20 One Impairment HEP Impairment Pt goals received 05/30/21: Strengthen legs (R) & upper body; Hips feel like in alignment after sitting (R hip feels like it is forward). Short Term Goal (STG) Pt will be independent with a self care HEP of hip/knee/ ankle strengthening exercises. (05/30/21: HEP issued for hip and knee flex strengthening, STS without UE support) (06/08/21: Strengthening: Added HEP hip AB; 06/13/21: Added hip Ext. ABD 06/15/21: Added trunk rot) 06/22/21: added R ankle TB PF/ Eccentric DF, EV. (07/18/21: Verbal review of HEP of hip/knee/ankle ex's) STG Duration 06/23/21 (07/18/21: MET GOAL) Chcf Goal (LTG) Pt will be independent with a self care HEP of core strengthening exercises. (06/19/21: Core strengthening ex HEP issued) (07/20/21: Added HEP trunk flex) LTG Duration 10/16/21 (07/27/21: Clarified trunk strengthening) Assessment Summary Assessment Pt improved balance self recovery and awareness with education on balance after initiated corner balance, able stand EC 30 sec NBOS, stagger , challenging tandem but corner safe set up for safe to perform at home. Pt Physical Therapy Plan Frequency and Duration Frequency of Treatment 2x/Week Plan of Care Start Date 07/18/21 Plan of Care End Date 10/16/21 Therapeutic Interventions Therapeutic Interventions Home Exercise Program, Neuromuscular Re-education, Patient/Caregiver Education, Self-Care/Home Management, Therapeutic Activities, Therapeutic Exercises Modalities Cold Pack/Ice Massage,Hot Packs Other Referrals/Consults Referrals/Consults Recommended Claim Auditor appt today at 2pm: assess R lateral heel support to assist ankle alignment stability and balance. CLIENT TECHNOLOGIES SPECIALIST recommended [facility]/ PT [facility] suggestions past tx, pt in agreement would be helpful . Next Visit Focus/Plan Next Note Type Treatment Note Next Visit Plan REcheck cross roller appt 08/15? Assess HEP corner balance, step ups, TB ex. Next tx add heel raises for toe off strengthening gait, recheck goals. POC: hip abd TB hooklying and gastroc stretch. Progress standing balance saran stepping, NBOS and gait w/ SPC. Continue Strengthening: R Hip ER/IR; R Knee flex, remind pt HEP: ankle DF along with improved mobility. Progress endurance with UBE at end of therapy. POC: focus on neuro- reeducation for balance and improving stability/safety with gait, improving stamina & functional strength of RLE.
--- NOTE | 2021-08-17 11:22 | PT.OTN ---
Current Diagnoses Major depressive disorder, single episode, in full remission (08/17/21) Multiple sclerosis (08/17/21) Muscle weakness (generalized) (08/17/21) Age-related osteoporosis without current pathological fracture (08/17/21) Unspecified abnormalities of gait and mobility (08/17/21) Dizziness and giddiness (08/17/21) Physical Therapy Treatment Note PT-OP-A Visit Information Start: 05/23/21 18:50 Freq: Status: Active Protocol: Document 08/17/21 10:32 SP (Rec: 08/17/21 11:39 SP [id number]) Out-Patient Physical Therapy Visit Information Visit Information Visit Type Treatment Note Visit Start Time 10:32 Visit Stop Time 11:22 Total Visit Minutes 50 Visit Number 20 Number of COMMERCIAL CORRESPONDENT Visits 4 Evaluation Information Evaluation Date 05/25/21 Precautions Precautions Multiple Sclerosis, Osteoporosis, Dizziness, back pain. R handed. Has life alerts. PT-OP-B Current Condition Start: 05/23/21 18:50 Freq: Status: Active Protocol: Document 05/25/21 11:23 LRN (Rec: 05/25/21 12:06 LRN [id number]) Current Condition History of Current Condition Onset Date 17 yrs ago. Current Complaints Progressive weakness of RLE, since dx'd with MS; spasticity of lisbet LE R>L History of Current Condition Pt reports R foot drop and LE weakness due to MS with R foot dragging for past 10-15 yrs. Has had MS since ~1971, started with numb patches in the legs and clumsy. She has had an AFO for the R ankle foot for 5 yrs ago and wears it intermittently because she can only wear it with one pair of shoes. Pt did not wear the AFO today. States her primary care physician sent her to PT at her request due to having had PT several years ago with Rojelio Slaughter, PT. Neurologist, Natalya Stewart is planning on having her fit for another AFO on R LE that will help her to move the R LE (keep the foot straight and help to raise the foot). Pt reports she sometimes gets dizzy causing LOB without falls. Daughter calls her daily. Prior Treatments and Tests Sees chiropractor every other week. Future Testing and Treatments Planned Fit for RLE brace/AFO; company to contact her within 2-3 weeks. Treatment Goals Patient/Caregiver Goals Pt goal is to work on: *Balance, less LOB (no loss of balance), *Gait, legs not as tired at the end of the day, take longer walks with dog (walking to end of block) *Strengthen R LE to improve ability to lift self into bed at end of day, pushing withGait R leg. Prior Functional Status Baseline Function- Gait Gait with cane. Current Functional Impairments (Reported) Functional Limitations- ADL's Difficulty getting into bed at end of day. Functional Limitations- Mobility/Gait Walks 1/[address] to end of block to mailbox, then home Personal Factors Other Personal Factors That May Effect MS, Osteoporsis, dizziness. Therapy/Recovery PT-OP-C Subjective Start: 05/23/21 18:50 Freq: Status: Active Protocol: Document 08/17/21 10:32 SP (Rec: 08/17/21 11:39 SP [id number]) OP-PT Subjective Patient Comments Patient Comments Pt stated saw Inspection Manager Radha Chowdhury couple days ago at [facility] and modified R 1/4 heel lift on top of AFO and has given her arnie stability to R ankle during gait. Pt states doing her HEP. No headaches, is doing TB with no adverse affects. PT-OP-D Balance Start: 05/23/21 18:50 Freq: Status: Active Protocol: Document 07/20/21 10:40 LRN (Rec: 07/20/21 12:17 LRN [id number]) Tinetti Balance Assessment Sitting Balance Sitting Balance Steady, safe Arising from Chair Ability to Arise Able, uses arms to help Attempts to Arise Arises on 1st attempt Standing Balance Immediate Standing Balance Steady w/o support Standing Balance Steady, wide stance Nudged Response Steady Standing with Eyes Closed Steady Turning Step Pattern Turning 360 Degrees Discontinuous steps Stability Turning 360 Degrees Steady Sitting Down Sitting Down Safe, steady Gait and Step Initiation of Gait No hesitancy Right Foot Step Length Does pass stance foot Right Foot Step Height Does not clear floor Left Foot Step Length Does pass stance foot Left Foot Step Height Completely clears floor Step Description Step Symmetry Step length not equal Step Continuity Steps appear continuous Gait Description Path Description Mild/moderate deviation Trunk Description Marked sway or uses aide Walking Stance Heels together Scoring and Interpretation Tinetti Composite Score (points) 20 Interpretation of Scores High risk for falls(< 19) Tinetti Impairment Rating from Composite 20 to <40% Impaired (Score 17- Score 22) PT-OP-E Functional Tests Start: 05/23/21 18:50 Freq: Status: Active Protocol: Document 08/17/21 10:32 SP (Rec: 08/17/21 11:39 SP [id number]) Functional Tests 6 Minute Walk Test Distance 578 Device Used SPC Comments cued R knee flexion to allow foot clearance PT-OP-G Mobility & Gait Start: 05/23/21 18:50 Freq: Status: Active Protocol: Document 05/25/21 11:23 LRN (Rec: 05/25/21 12:06 LRN [id number]) OP Gait Assessment Gait Gait Assistance Required: Independent Able to Maintain Weight Bearing Status Yes During Gait Assistive Devices Assistive Device Straight Cane Gait Deviations General Gait Pattern Decreased Stride Length, Decreased Feet Clearance, Lateral Trunk Lean,Narrow Based Gait Factors Limiting Gait Function Factors Limiting Gait Function Abnormal Tonal Influences, Decreased Activity Tolerance, Decreased Strength,Poor Balance Comments Gait Comments Gait with SPC on R side. Pt hold her R leg stiff with the Ankle in inversion. PT-OP-J Posture/Palpation/Skin Start: 05/23/21 18:50 Freq: Status: Active Protocol: Document 05/25/21 11:23 LRN (Rec: 05/25/21 12:06 LRN [id number]) Posture Evaluation Position Standing Head/C-Spine Posture Forward Head Shoulder Posture (L) Elevated Knee Posture (L) Excess Flexion Ankle/Foot Posture (R) Supinated,(R) Calcaneal Inversion Comments Posture Comments L leg long, holds knee flexed. When R knee is straight, the pelvis rotates right. Slight curve of back with apex on the left. PT-OP-K Range of Motion Start: 05/23/21 18:50 Freq: Status: Active Protocol: Document 07/18/21 12:51 LRN (Rec: 07/18/21 13:37 LRN [id number]) Ankle and Foot Goniometric Range of Motion Ankle and Foot Left Active Ankle/Foot ROM WFL Yes Testing Position Sitting Dorsiflexion with Knee Flexed 7 Inversion 30 Eversion 30 Right Active Ankle/Foot ROM WFL No Testing Position Sitting Inversion 35 Eversion 10 Comments Ankle DF with knee flexed is lacking 5 deg's to neutral. PT-OP-M Strength Start: 05/23/21 18:50 Freq: Status: Active Protocol: Document 07/18/21 12:51 LRN (Rec: 07/18/21 13:37 LRN [id number]) Hip Strength Hip Manual Muscle Testing Right Flexion (L2) 5 Normal Extension (S1) 3 Fair Abduction 3- Fair- Adduction 4+ Good+ External Rotation 3 Fair Internal Rotation 3+ Fair+ Left Flexion (L2) 5 Normal Extension (S1) 5 Normal Abduction 5 Normal Adduction 5 Normal External Rotation 5 Normal Internal Rotation 4+ Good+ Knee Strength Knee Manual Muscle Testing Right Flexion (S2) 3+ Fair+ Extension (L3) 5 Normal Left Flexion (S2) 5 Normal Extension (L3) 5 Normal Ankle/Foot Strength Ankle and Foot Manual Muscle Testing Right Dorsiflexion (L4) 3- Fair- Plantarflexion (S1) 5 Normal Inversion 5 Normal Eversion (S1) 3- Fair- PT-OP-Q Treatments Start: 05/23/21 18:50 Freq: Status: Active Protocol: Document 08/17/21 10:32 SP (Rec: 08/17/21 11:39 SP [id number]) Therapeutic Exercises Sitting Exercises Trunk Side Bend Sitting Exercise Name Trunk SB and rotation- HEP Review Side bilateral Resistance Tb #4 Equipment Used seated chair Reps/Minutes x15 Comments cued WBOS, tall posture tolerant range- noted side TA work (noneck recruit) Trunk Ext Sitting Exercise Name Trunk Ext- HEP review Resistance Lev 4 TBand Reps/Minutes 15x Comments Cued for start 45 deg's trunk flex to max allowable ext ROM Hip Flex Sitting Exercise Name hip flexion then eccentric lowering Side right Resistance AROM Reps/Minutes x5 reps, not as high as reps proressed Comments discussed incorporate with putting on pants RLE Standing Exercises Trunk SB Standing Exercise Name Trunk SB and rotation- reviewed HEP doing at home Resistance TB #4 Equipment Used chair behind her for safety Reps/Minutes x10 each Comments SBA w/GB Neuro Re-Education Treatment Balance Activities corner balance Details NBOS, stagger, tandem- added to HEP Surface firm Equipment //bar> (in corner:corner at back, back of chair at front for steady balance Reps/Duration 20 min Comments NBOS: head turns, EC 30s Stagger: R forward: head turn & EC 16 sec before LOB chair contact L forward: head turn & EC 16 sec before LOB contact chair- discussed no EC at home, OK stationary and head turns with core/hip fac awareness. No tandem today. PT-OP-T Assessment and Plan Start: 05/23/21 18:50 Freq: Status: Active Protocol: Document 08/17/21 10:32 SP (Rec: 08/17/21 11:39 SP [id number]) Physical Therapy Assessment Goals Six Impairment Decreased functional strength Impairment Pt has difficulty raising R leg to put leg in pants. 08/10/21: pt states still bending over and putting on pants. Suggested Cross RLE over L place pant on foot then eccentrically lower RLE into pant leg for added strengthening. 08/17/21: pt states can't miantain RLE ankle on LLE put pants on so crosses RLE over LLE and puts on. Is doing hip flexion lift ex. Depending upon what chair sit in can hold RLE ankle over LLE to put on pants and ease slow RLE to floor as pull pants up R leg. Retirement Goal (LTG) Pt will be able to lift R leg (in sitting) for ease of dressing (to put leg in pants) . 08/10/21: Progressing can lift RLE off ground about 5 inches intially then as reps progress not as high but only hold 2 sec before need to slow lower. 08/17/21: lift up 3 then slowly lower (AFO and shoe on, performed after 6MWT). LTG Duration 10/16/21 (08/17/21 progressing) Five Impairment Decreased stamina Short Term Goal (STG) Pt will be able to tolerate 10 minutes of upper body strengthening during a 38 miniute therapy session. 08/17/21: performed/ reviewed end tx didn't time. STG Duration 08/17/21 Retirement Goal (LTG) Pt will have greater confidence in her walking as demonstrated by improved TUG score of 14 or less. (07/18/21: TUG 22 secs w/AFO/ cane. 05/30/21: TUG 15 w/ AFO/cane). LTG Duration 10/16/21 Four Impairment Gait dysfunction Impairment R foot drop with occasional catching of toes. Short Term Goal (STG) Increase R hip/knee/ankle strength by 1/2 grade. (07/18/21: NOT MET for: R Hip ER/IR; R Knee flex) STG Duration 08/17/21 (07/18/21: Goal mostly met) Clinical Program Manager Goal (LTG) Legs not as tired at the end of the day with pt able to take her dog on a longer walk to end of block and back. 07/11/20: Pt only able to walk dog out to go to bathroom with cold bad weather, pre bad weather only able walk dog 3 drive[address] and back, uses SPC in LUE. PLOF reported during good weather days was able to walk approx total 1/4 mile. LTG Duration 10/16/21 (07/11/20: progressing) Three Impairment Decreased Balance Impairment Loss of balance without fall 2x/day in home. Retirement Goal (LTG) Improve balance with less reported LOB or no loss of balance with gait in home with more consistent use of AFO. 06/27/21: improved balanced gait, less R hip lateral ankle / hip deviations with new sneakers 9.5 (1 whole size larger). 07/11/20: pt reported had 2 falls (1 [address], 1 in kitchen) due to toe catching floor but not sure which foot caught the floor since last tx . Not sure why, maybe due to new sneakers 1 whole size bigger at 9.5 for AFO fit, vs 8.5. (07/18/21: No falls the past week, occasional LOB without fall) 08/17/21: had 1 fall since seen PT, not wearing shoes to go get shoes, sock got caught on nail of threshold last Sat/ Sun. Not LOB or fall since then. LTG Duration 10/16/21 (08/17/21: Progressing) Two Impairment Decreased R LE strength Impairment Hip: Flexion 5/5 L, 4+/5 R; ER 3-/5 R, 2/5 L; IR 4+/5 bilaterally. Knee: Flex: 4/5 bilaterally; Ext: 3+/5 R, 5/5 L Ankle: Left: generally 5/5; Right: DF 2+/5, PF 3+/5, IV 3/ 5, EV 2/5. Short Term Goal (STG) Improve R ankle: generally 3+/ 5, R Knee: generally 4+/5; R hip AB 4/5 (07/11/20: HEP R ankle EV, DF TB #1). (07/18/21: R ankle: PF/IV is 5 /5 & DF/EV is 3-/5; R knee: Flex 3+/5, Ext 5/5; Hip AB 3-/ 5), STG Duration 08/17/21 (07/18/21: Improved) Retirement Goal (LTG) Increase R LE strength with pt able to lift self into bed at end of day with use of R leg. 07/11/20: GOAL MET: pt reports is able to lift RLE into bed now without UE support. (07/18/21: Able to boost self into bed 75% of the time.) LTG Duration GOAL MET 07/11/20 One Impairment HEP Impairment Pt goals received 05/30/21: Strengthen legs (R) & upper body; Hips feel like in alignment after sitting (R hip feels like it is forward). Short Term Goal (STG) Pt will be independent with a self care HEP of hip/knee/ ankle strengthening exercises. (05/30/21: HEP issued for hip and knee flex strengthening, STS without UE support) (06/08/21: Strengthening: Added HEP hip AB; 06/13/21: Added hip Ext. ABD 06/15/21: Added trunk rot) 06/22/21: added R ankle TB PF/ Eccentric DF, EV. (07/18/21: Verbal review of HEP of hip/knee/ankle ex's) STG Duration 06/23/21 (07/18/21: MET GOAL) Clinical Program Manager Goal (LTG) Pt will be independent with a self care HEP of core strengthening exercises. (06/19/21: Core strengthening ex HEP issued) (07/20/21: Added HEP trunk flex) 08/17/21: R hip flexion/ eccentric lower seated, able get up from laying down positioning w/ hands. seated TB DF, EV. LE/ Core Step up/ downs w/ BHR, corner balance NBOS, stagger. LTG Duration 10/16/21 (08/17/21: Clarified trunk strengthening) Assessment Summary Assessment Pt improved R ankle stability after visiting cpo, modified angle 07/11 lift. Pt performs trunk SB/ rotation seated and standing today, educated chair behind standing for safety, recommended perform in sitting at home for and an do in PT standing to decrease risk for falls at this time. Pt continues tight hip flexion and cues required for R knee flexion for foot clearance during gait and steps ups LE and core strengthening doing as HEP, improves self corrections post cues. Physical Therapy Plan Frequency and Duration Frequency of Treatment 2x/Week Plan of Care Start Date 07/18/21 Plan of Care End Date 10/16/21 Therapeutic Interventions Therapeutic Interventions Home Exercise Program, Neuromuscular Re-education, Patient/Caregiver Education, Self-Care/Home Management, Therapeutic Activities, Therapeutic Exercises Modalities Cold Pack/Ice Massage,Hot Packs Other Referrals/Consults Referrals/Consults Recommended Inspection Manager Saw cpo Radha Chowdhury at [facility] 2 days ago and modified 1/4 heel lift and has given arnie stability to R ankle during gait Next Visit Focus/Plan Next Note Type Treatment Note Next Visit Plan PN next visit. Next tx: recheck HEP, add heel raises for toe off strengthening gait POC: hip abd TB hooklying and gastroc stretch. Continue: standing balance saran stepping, NBOS and gait w/ SPC. Continue Strengthening: R Hip ER/IR; R Knee flex, remind pt HEP: ankle DF along with improved mobility. Progress endurance with UBE at end of therapy. POC: focus on neuro- reeducation for balance and improving stability/safety with gait, improving stamina & functional strength of RLE.
--- NOTE | 2021-08-22 12:25 | PT.OTN ---
Current Diagnoses Major depressive disorder, single episode, in full remission (08/22/21) Multiple sclerosis (08/22/21) Muscle weakness (generalized) (08/22/21) Age-related osteoporosis without current pathological fracture (08/22/21) Unspecified abnormalities of gait and mobility (08/22/21) Dizziness and giddiness (08/22/21) Physical Therapy Treatment Note PT-OP-A Visit Information Start: 05/23/21 18:50 Freq: Status: Active Protocol: Document 08/22/21 10:38 LRN (Rec: 08/22/21 12:20 LRN [id number]) Out-Patient Physical Therapy Visit Information Visit Information Visit Type Progress Note Visit Start Time 10:38 Visit Stop Time 11:45 Total Visit Minutes 67 Visit Number 21 Evaluation Information Evaluation Date 05/25/21 Precautions Precautions Multiple Sclerosis, Osteoporosis, Dizziness, back pain. R handed. Has life alerts. PT-OP-B Current Condition Start: 05/23/21 18:50 Freq: Status: Active Protocol: Document 05/25/21 11:23 LRN (Rec: 05/25/21 12:06 LRN [id number]) Current Condition History of Current Condition Onset Date 17 yrs ago. Current Complaints Progressive weakness of RLE, since dx'd with MS; spasticity of lisbet LE R>L History of Current Condition Pt reports R foot drop and LE weakness due to MS with R foot dragging for past 10-15 yrs. Has had MS since ~1971, started with numb patches in the legs and clumsy. She has had an AFO for the R ankle foot for 5 yrs ago and wears it intermittently because she can only wear it with one pair of shoes. Pt did not wear the AFO today. States her primary care physician sent her to PT at her request due to having had PT several years ago with Rojelio Slaughter, PT. Neurologist, Natalya Stewart is planning on having her fit for another AFO on R LE that will help her to move the R LE (keep the foot straight and help to raise the foot). Pt reports she sometimes gets dizzy causing LOB without falls. Daughter calls her daily. Prior Treatments and Tests Sees chiropractor every other week. Future Testing and Treatments Planned Fit for RLE brace/AFO; company to contact her within 2-3 weeks. Treatment Goals Patient/Caregiver Goals Pt goal is to work on: *Balance, less LOB (no loss of balance), *Gait, legs not as tired at the end of the day, take longer walks with dog (walking to end of block) *Strengthen R LE to improve ability to lift self into bed at end of day, pushing withGait R leg. Prior Functional Status Baseline Function- Gait Gait with cane. Current Functional Impairments (Reported) Functional Limitations- ADL's Difficulty getting into bed at end of day. Functional Limitations- Mobility/Gait Walks 1/[address] to end of block to mailbox, then home Personal Factors Other Personal Factors That May Effect MS, Osteoporsis, dizziness. Therapy/Recovery PT-OP-C Subjective Start: 05/23/21 18:50 Freq: Status: Active Protocol: Document 08/22/21 10:38 LRN (Rec: 08/22/21 12:20 LRN [id number]) OP-PT Subjective Patient Comments Patient Comments States she feels like the new orthotic helps her feel more stable. Week before walked 1/ 2 mile with a friend and her dog/cane and was exhausted. Two days ago walked her dog to the dog park using cane (1/4 mile full trip). Was fatigued by the time she got home. States putting her pants on is a challenge because her R leg slides off the L leg (in cross legged position) to make dressing difficult. PT-OP-D Balance Start: 05/23/21 18:50 Freq: Status: Active Protocol: Document 07/20/21 10:40 LRN (Rec: 07/20/21 12:17 LRN [id number]) Tinetti Balance Assessment Sitting Balance Sitting Balance Steady, safe Arising from Chair Ability to Arise Able, uses arms to help Attempts to Arise Arises on 1st attempt Standing Balance Immediate Standing Balance Steady w/o support Standing Balance Steady, wide stance Nudged Response Steady Standing with Eyes Closed Steady Turning Step Pattern Turning 360 Degrees Discontinuous steps Stability Turning 360 Degrees Steady Sitting Down Sitting Down Safe, steady Gait and Step Initiation of Gait No hesitancy Right Foot Step Length Does pass stance foot Right Foot Step Height Does not clear floor Left Foot Step Length Does pass stance foot Left Foot Step Height Completely clears floor Step Description Step Symmetry Step length not equal Step Continuity Steps appear continuous Gait Description Path Description Mild/moderate deviation Trunk Description Marked sway or uses aide Walking Stance Heels together Scoring and Interpretation Tinetti Composite Score (points) 20 Interpretation of Scores High risk for falls(< 19) Tinetti Impairment Rating from Composite 20 to <40% Impaired (Score 17- Score 22) PT-OP-E Functional Tests Start: 05/23/21 18:50 Freq: Status: Active Protocol: Document 08/17/21 10:32 SP (Rec: 08/17/21 11:39 SP [id number]) Functional Tests 6 Minute Walk Test Distance 578 Device Used SPC Comments cued R knee flexion to allow foot clearance PT-OP-G Mobility & Gait Start: 05/23/21 18:50 Freq: Status: Active Protocol: Document 08/22/21 10:38 LRN (Rec: 08/22/21 12:20 LRN [id number]) OP Gait Assessment Gait Gait Assistance Required: Independent Distance (Feet) 100 Assistive Devices Assistive Device Straight Cane Gait Deviations General Gait Pattern Decreased Stride Length, Lateral Trunk Lean Factors Limiting Gait Function Factors Limiting Gait Function Abnormal Tonal Influences, Decreased Strength,Poor Balance Comments Gait Comments R AFO improves ankle position, but noted R ankle IV's on stance phase. PT-OP-J Posture/Palpation/Skin Start: 05/23/21 18:50 Freq: Status: Active Protocol: Document 05/25/21 11:23 LRN (Rec: 05/25/21 12:06 LRN [id number]) Posture Evaluation Position Standing Head/C-Spine Posture Forward Head Shoulder Posture (L) Elevated Knee Posture (L) Excess Flexion Ankle/Foot Posture (R) Supinated,(R) Calcaneal Inversion Comments Posture Comments L leg long, holds knee flexed. When R knee is straight, the pelvis rotates right. Slight curve of back with apex on the left. PT-OP-K Range of Motion Start: 05/23/21 18:50 Freq: Status: Active Protocol: Document 07/18/21 12:51 LRN (Rec: 07/18/21 13:37 LRN [id number]) Ankle and Foot Goniometric Range of Motion Ankle and Foot Left Active Ankle/Foot ROM WFL Yes Testing Position Sitting Dorsiflexion with Knee Flexed 7 Inversion 30 Eversion 30 Right Active Ankle/Foot ROM WFL No Testing Position Sitting Inversion 35 Eversion 10 Comments Ankle DF with knee flexed is lacking 5 deg's to neutral. PT-OP-M Strength Start: 05/23/21 18:50 Freq: Status: Active Protocol: Document 08/22/21 10:38 LRN (Rec: 08/22/21 12:20 LRN [id number]) Hip Strength Hip Manual Muscle Testing Right Flexion (L2) 5 Normal External Rotation 3+ Fair+ Internal Rotation 3+ Fair+ Left Flexion (L2) 5 Normal Extension (S1) 5 Normal Abduction 5 Normal Adduction 5 Normal External Rotation 5 Normal Internal Rotation 4+ Good+ Knee Strength Knee Manual Muscle Testing Right Flexion (S2) 3+ Fair+ Extension (L3) 5 Normal Left Flexion (S2) 5 Normal Extension (L3) 5 Normal PT-OP-Q Treatments Start: 05/23/21 18:50 Freq: Status: Active Protocol: Document 08/22/21 10:38 LRN (Rec: 08/22/21 12:20 LRN [id number]) Cardio Equipment Upper Body Ergometer (UBE) Duration (Minutes) 5 RPM 90 Seat Position 10 Height 2 Other 1 minute each direction, switching back and forth. Therapeutic Exercises Sidelying Exercises Reverse Clamshell Sidelying Exercise Name Reverse Clamshell Side right Reps/Minutes 30x Comments Phys assist for ankle EV and ROM for IV Clamshell Sidelying Exercise Name Clamshell Side right Reps/Minutes 30x Comments Phy cuing to prevent pelvis from rotating bkwd with knee lift Sitting Exercises R ankle PF/IV, L knee flex/ext Sitting Exercise Name R ankle PF/IV, L knee flex/ext Side bilateral Reps/Minutes 3' Comments MMT Hip ER/IR Sitting Exercise Name AROM Side right Reps/Minutes 5x Ankle DF Sitting Exercise Name Ankle EV - Passive & active Side right Reps/Minutes 5' Comments MMT taken, extra time to remove & don R AFO Ankle EV Sitting Exercise Name Ankle EV - assisted & active Side right Reps/Minutes 5' Comments v. cuing for when ms spasms. R hip ER stretch Sitting Exercise Name R leg crossed over L knee for hip ER stretch, I/S for HEP Side right Reps/Minutes 6' Comments Much phy & v cuing needed for proper posturing of back and legs Knee flex Sitting Exercise Name Active Knee flex with R leg crossed over L knee, resting on towel Side right Reps/Minutes 4' Comments MMT of R knee flex/ext in sitting. Hip flex w/ER Sitting Exercise Name AA hip flex w/ER Side right Reps/Minutes 10x 3 Comments Assist to lift the R LE. Standing Exercises R knee flex Standing Exercise Name Standing knee flexion Side right Reps/Minutes 3' Gait Training Gait Activity Gait with SPC/R AFO Description Gait assessmentn w/SPC & R AFO Surface Level Distance/Duration 100' Comments Pt R ankle IV's on stance phase, trunk is held stiff with lean to the right. Neuro Re-Education Treatment Balance Activities Side stepping Details Sidestepping with hand support , with 1 hand support, & w/o hand support Surface Level Equipment // bars Reps/Duration 100' x 3 PT-OP-T Assessment and Plan Start: 05/23/21 18:50 Freq: Status: Active Protocol: Document 08/22/21 10:38 LRN (Rec: 08/22/21 12:20 LRN [id number]) Physical Therapy Assessment Goals Six Impairment Decreased functional strength Impairment Pt has difficulty raising R leg to put leg in pants. 08/10/21: pt states still bending over and putting on pants. Suggested Cross RLE over L place pant on foot then eccentrically lower RLE into pant leg for added strengthening. 08/17/21: pt states can't miantain RLE ankle on LLE put pants on so crosses RLE over LLE and puts on. Is doing hip flexion lift ex. Depending upon what chair sit in can hold RLE ankle over LLE to put on pants and ease slow RLE to floor as pull pants up R leg. Pbx Mechanic Goal (LTG) Pt will be able to lift R leg (in sitting) for ease of dressing (to put leg in pants) . 08/10/21: Progressing can lift RLE off ground about 5 inches intially then as reps progress not as high but only hold 2 sec before need to slow lower. 08/17/21: lift up 3 then slowly lower (AFO and shoe on, performed after 6MWT). (08/22/21: Pt able to lift R leg with assist of her UE's to place R knee over the L knee, but pt has difficulty keeping her R knee in place) LTG Duration 10/16/21 (08/22/21 progressing) Five Impairment Decreased stamina Short Term Goal (STG) Pt will be able to tolerate 10 minutes of upper body strengthening during a 38 miniute therapy session. 08/17/21: performed/ reviewed end tx didn't time. 08/22/21: UBE x 4' & 90 rpm. STG Duration 10/16/21 (08/22/21: Progressed) [facility] Goal (LTG) Pt will have greater confidence in her walking as demonstrated by improved TUG score of 14 or less. (07/18/21: TUG 22 secs w/AFO/ cane. 05/30/21: TUG 15 w/ AFO/cane). LTG Duration 11/20/21 Four Impairment Gait dysfunction Impairment R foot drop with occasional catching of toes. Short Term Goal (STG) Increase R hip/knee/ankle strength by 1/2 grade. (07/18/21: NOT MET for: R Hip ER/IR; R Knee flex) (08/22/21: R hip ER 3+/5, IR is 3/5; initially was ER 3/5, IR 3+/5. R knee flex same at 3+/5) STG Duration 10/16/21 (07/18/21: Goal mostly met) [facility] Goal (LTG) Legs not as tired at the end of the day with pt able to take her dog on a longer walk to end of block and back. 07/11/20: Pt only able to walk dog out to go to bathroom with cold bad weather, pre bad weather only able walk dog 3 [address] and back, uses SPC in LUE. PLOF reported during good weather days was able to walk approx total 1/4 mile. 08/22/21: Legs not too tired at the end of the day and walks dog 2-3x/day and can walk her dog to the end of the block and back. LTG Duration 10/16/21 (08/22/21: MET GOAL) Three Impairment Decreased Balance Impairment Loss of balance without fall 2x/day in home. Pbx Mechanic Goal (LTG) Improve balance with less reported LOB or no loss of balance with gait in home with more consistent use of AFO. 06/27/21: improved balanced gait, less R hip lateral ankle / hip deviations with new sneakers 9.5 (1 whole size larger). 07/11/20: pt reported had 2 falls (1 [address], 1 in kitchen) due to toe catching floor but not sure which foot caught the floor since last tx . Not sure why, maybe due to new sneakers 1 whole size bigger at 9.5 for AFO fit, vs 8.5. (07/18/21: No falls the past week, occasional LOB without fall) 08/17/21: had 1 fall since seen PT, not wearing shoes to go get shoes, sock got caught on nail of threshold last Sat/ Sun. Not LOB or fall since then. 08/22/21: No LOB since last reported on 08/17/21 LTG Duration 11/20/21 (08/22/21: Progressing) Two Impairment Decreased R LE strength Impairment Hip: Flexion 5/5 L, 4+/5 R; ER 3-/5 R, 2/5 L; IR 4+/5 bilaterally. Knee: Flex: 4/5 bilaterally; Ext: 3+/5 R, 5/5 L Ankle: Left: generally 5/5; Right: DF 2+/5, PF 3+/5, IV 3/ 5, EV 2/5. Short Term Goal (STG) Improve R ankle: generally 3+/ 5, R Knee: generally 4+/5; R hip AB 4/5 (07/11/20: HEP R ankle EV, DF TB #1). (07/18/21: R ankle: PF/IV is 5 /5 & DF/EV is 3-/5; R knee: Flex 3+/5, Ext 5/5; Hip AB 3-/ 5), (08/22/21: R ankle: PF/IV is 5 /5 & DF/EV is 3/5; R knee: Flex 3+/5, Ext 5/5; Hip AB 3-/ 5), STG Duration 10/16/21 (08/22/21: Improved in R ankle DF & EV strength 1 /2 grade.) Pbx Mechanic Goal (LTG) Increase R LE strength with pt able to lift self into bed at end of day with use of R leg. 07/11/20: GOAL MET: pt reports is able to lift RLE into bed now without UE support. (07/18/21: Able to boost self into bed 75% of the time.) LTG Duration 07/11/20 GOAL MET One Impairment HEP Impairment Pt goals received 05/30/21: Strengthen legs (R) & upper body; Hips feel like in alignment after sitting (R hip feels like it is forward). Short Term Goal (STG) Pt will be independent with a self care HEP of hip/knee/ ankle strengthening exercises. (05/30/21: HEP issued for hip and knee flex strengthening, STS without UE support) (06/08/21: Strengthening: Added HEP hip AB; 06/13/21: Added hip Ext. ABD 06/15/21: Added trunk rot) 06/22/21: added R ankle TB PF/ Eccentric DF, EV. (07/18/21: Verbal review of HEP of hip/knee/ankle ex's) STG Duration 06/23/21 (07/18/21: MET GOAL) Pbx Mechanic Goal (LTG) Pt will be independent with a self care HEP of core strengthening exercises. (06/19/21: Core strengthening ex HEP issued) (07/20/21: Added HEP trunk flex) 08/17/21: R hip flexion/ eccentric lower seated, able get up from laying down positioning w/ hands. seated TB DF, EV. LE/ Core Step up/ downs w/ BHR, corner balance NBOS, stagger. LTG Duration 11/20/21 (08/17/21: Clarified trunk strengthening) Progress Towards Goals Progress Comments Pt in sitting is able to lift R LE to cross over the L knee with use of her UE's, for dressing, but is not able to maintain the position. Endurance tolerance is 5' on UBE without fatigue. R ankle DF & EV strength is 3/ 5. Reduction in episodes of intrinsic LOB (most recent due to sock catching on a nail). R hip ER strength improved 1/2 grade, same with IR and R knee flex strength. Assessment Summary Assessment The pt has made good improvement in LE strength and has improved in stability with gait. She doesn't recall the last time she had a LOB episode, with the most recent being due to external reasons (sock caught on nail). Her R ankle DF & EV strength has improved 1/2 grade, but her R ankle EV ROM is limited in mobility. The pt is very consistent with her home program and with attendance. I would recomend continuation of skilled physical therapy to further progress the pt in improving her strength and endurance to improve her safety with gait and functional activities. Physical Therapy Plan Frequency and Duration Frequency of Treatment 2x/Week Plan of Care Start Date 08/22/21 Plan of Care End Date 11/20/21 Therapeutic Interventions Therapeutic Interventions Home Exercise Program, Neuromuscular Re-education, Patient/Caregiver Education, Self-Care/Home Management, Therapeutic Activities, Therapeutic Exercises Modalities Cold Pack/Ice Massage,Hot Packs Next Visit Focus/Plan Next Note Type Treatment Note Next Visit Plan Next tx: recheck hip strength (ext, AB, AD) & HEP, add heel raises for toe off strengthening gait, assess TUG . POC: hip abd TB hooklying and gastroc stretch. Strengthen R knee flex, R ankle DF & EV, improve ROM of R ankle EV. Continue: standing balance saran stepping, NBOS and gait w/ SPC. Continue Strengthening: R Hip ER/IR; R Knee flex, remind pt HEP: ankle DF along with improved mobility. Progress endurance with UBE at end of therapy. POC: focus on neuro- reeducation for balance and improving stability/safety with gait, improving stamina & functional strength of RLE.
--- NOTE | 2021-08-24 11:18 | PT.OTN ---
Current Diagnoses Major depressive disorder, single episode, in full remission (08/24/21) Multiple sclerosis (08/24/21) Muscle weakness (generalized) (08/24/21) Age-related osteoporosis without current pathological fracture (08/24/21) Unspecified abnormalities of gait and mobility (08/24/21) Dizziness and giddiness (08/24/21) Physical Therapy Treatment Note PT-OP-A Visit Information Start: 05/23/21 18:50 Freq: Status: Active Protocol: Document 08/24/21 10:33 SP (Rec: 08/24/21 11:54 SP [id number]) Out-Patient Physical Therapy Visit Information Visit Information Visit Type Treatment Note Visit Start Time 10:33 Visit Stop Time 11:18 Total Visit Minutes 45 Visit Number 22 Number of MASTER BAKER Visits 1 Evaluation Information Evaluation Date 05/25/21 Precautions Precautions Multiple Sclerosis, Osteoporosis, Dizziness, back pain. R handed. Has life alerts. PT-OP-B Current Condition Start: 05/23/21 18:50 Freq: Status: Active Protocol: Document 05/25/21 11:23 LRN (Rec: 05/25/21 12:06 LRN [id number]) Current Condition History of Current Condition Onset Date 17 yrs ago. Current Complaints Progressive weakness of RLE, since dx'd with MS; spasticity of lisbet LE R>L History of Current Condition Pt reports R foot drop and LE weakness due to MS with R foot dragging for past 10-15 yrs. Has had MS since ~1971, started with numb patches in the legs and clumsy. She has had an AFO for the R ankle foot for 5 yrs ago and wears it intermittently because she can only wear it with one pair of shoes. Pt did not wear the AFO today. States her primary care physician sent her to PT at her request due to having had PT several years ago with Rojelio Slauhgter, PT. Neurologist, Natalya Stewart is planning on having her fit for another AFO on R LE that will help her to move the R LE (keep the foot straight and help to raise the foot). Pt reports she sometimes gets dizzy causing LOB without falls. Daughter calls her daily. Prior Treatments and Tests Sees chiropractor every other week. Future Testing and Treatments Planned Fit for RLE brace/AFO; company to contact her within 2-3 weeks. Treatment Goals Patient/Caregiver Goals Pt goal is to work on: *Balance, less LOB (no loss of balance), *Gait, legs not as tired at the end of the day, take longer walks with dog (walking to end of block) *Strengthen R LE to improve ability to lift self into bed at end of day, pushing withGait R leg. Prior Functional Status Baseline Function- Gait Gait with cane. Current Functional Impairments (Reported) Functional Limitations- ADL's Difficulty getting into bed at end of day. Functional Limitations- Mobility/Gait Walks 1/[address] to end of block to mailbox, then home Personal Factors Other Personal Factors That May Effect MS, Osteoporsis, dizziness. Therapy/Recovery PT-OP-C Subjective Start: 05/23/21 18:50 Freq: Status: Active Protocol: Document 08/24/21 10:33 SP (Rec: 08/24/21 11:54 SP [id number]) OP-PT Subjective Patient Comments Patient Comments Pt states has walked 3x/week this past week trying to increase distance with last 1 mile [employer] to [place] to [employer]. She said my friend said she wasn't a good sheep boner of what capable of doing , did get off balance so needed sit rest recoveries. Did a sampling of exercises last night, not full due to already walking. PT-OP-D Balance Start: 05/23/21 18:50 Freq: Status: Active Protocol: Document 07/20/21 10:40 LRN (Rec: 07/20/21 12:17 LRN [id number]) Tinetti Balance Assessment Sitting Balance Sitting Balance Steady, safe Arising from Chair Ability to Arise Able, uses arms to help Attempts to Arise Arises on 1st attempt Standing Balance Immediate Standing Balance Steady w/o support Standing Balance Steady, wide stance Nudged Response Steady Standing with Eyes Closed Steady Turning Step Pattern Turning 360 Degrees Discontinuous steps Stability Turning 360 Degrees Steady Sitting Down Sitting Down Safe, steady Gait and Step Initiation of Gait No hesitancy Right Foot Step Length Does pass stance foot Right Foot Step Height Does not clear floor Left Foot Step Length Does pass stance foot Left Foot Step Height Completely clears floor Step Description Step Symmetry Step length not equal Step Continuity Steps appear continuous Gait Description Path Description Mild/moderate deviation Trunk Description Marked sway or uses aide Walking Stance Heels together Scoring and Interpretation Tinetti Composite Score (points) 20 Interpretation of Scores High risk for falls(< 19) Tinetti Impairment Rating from Composite 20 to <40% Impaired (Score 17- Score 22) PT-OP-E Functional Tests Start: 05/23/21 18:50 Freq: Status: Active Protocol: Document 08/17/21 10:32 SP (Rec: 08/17/21 11:39 SP [id number]) Functional Tests 6 Minute Walk Test Distance 578 Device Used SPC Comments cued R knee flexion to allow foot clearance PT-OP-G Mobility & Gait Start: 05/23/21 18:50 Freq: Status: Active Protocol: Document 08/22/21 10:38 LRN (Rec: 08/22/21 12:20 LRN [id number]) OP Gait Assessment Gait Gait Assistance Required: Independent Distance (Feet) 100 Assistive Devices Assistive Device Straight Cane Gait Deviations General Gait Pattern Decreased Stride Length, Lateral Trunk Lean Factors Limiting Gait Function Factors Limiting Gait Function Abnormal Tonal Influences, Decreased Strength,Poor Balance Comments Gait Comments R AFO improves ankle position, but noted R ankle IV's on stance phase. PT-OP-J Posture/Palpation/Skin Start: 05/23/21 18:50 Freq: Status: Active Protocol: Document 05/25/21 11:23 LRN (Rec: 05/25/21 12:06 LRN [id number]) Posture Evaluation Position Standing Head/C-Spine Posture Forward Head Shoulder Posture (L) Elevated Knee Posture (L) Excess Flexion Ankle/Foot Posture (R) Supinated,(R) Calcaneal Inversion Comments Posture Comments L leg long, holds knee flexed. When R knee is straight, the pelvis rotates right. Slight curve of back with apex on the left. PT-OP-K Range of Motion Start: 05/23/21 18:50 Freq: Status: Active Protocol: Document 07/18/21 12:51 LRN (Rec: 07/18/21 13:37 LRN [id number]) Ankle and Foot Goniometric Range of Motion Ankle and Foot Left Active Ankle/Foot ROM WFL Yes Testing Position Sitting Dorsiflexion with Knee Flexed 7 Inversion 30 Eversion 30 Right Active Ankle/Foot ROM WFL No Testing Position Sitting Inversion 35 Eversion 10 Comments Ankle DF with knee flexed is lacking 5 deg's to neutral. PT-OP-M Strength Start: 05/23/21 18:50 Freq: Status: Active Protocol: Document 08/22/21 10:38 LRN (Rec: 08/22/21 12:20 LRN [id number]) Hip Strength Hip Manual Muscle Testing Right Flexion (L2) 5 Normal External Rotation 3+ Fair+ Internal Rotation 3+ Fair+ Left Flexion (L2) 5 Normal Extension (S1) 5 Normal Abduction 5 Normal Adduction 5 Normal External Rotation 5 Normal Internal Rotation 4+ Good+ Knee Strength Knee Manual Muscle Testing Right Flexion (S2) 3+ Fair+ Extension (L3) 5 Normal Left Flexion (S2) 5 Normal Extension (L3) 5 Normal PT-OP-Q Treatments Start: 05/23/21 18:50 Freq: Status: Active Protocol: Document 08/24/21 10:33 SP (Rec: 08/24/21 11:54 SP [id number]) Cardio Equipment Recumbent Stepper (Sci-Fit) Duration (Minutes) 8 Resistance 2.5 Seat Position 7 Other UE/ LEs good effort, 45-50 PRM , 1.42 miles Therapeutic Exercises Sidelying Exercises Reverse Clamshell Sidelying Exercise Name Reverse Clamshell- added to HEP Side right Equipment Used pillow between knees Reps/Minutes 30x Comments ankle EV and ROM for IV, stacked align. and shld depress awareness Clamshell Sidelying Exercise Name Clamshell- added to HEP Side right Equipment Used pillow between knees Reps/Minutes 30x Comments cued stacked trunk on side, TA fac and shld depression awareness Sitting Exercises Ankle DF Sitting Exercise Name Ankle EV Side right Resistance TB #2 Reps/Minutes x10 Comments cued Ankle EV Sitting Exercise Name Ankle EV - assisted & active Side right Resistance TB #2 Reps/Minutes x10 Comments cued heel contact floor R hip ER stretch Sitting Exercise Name R leg crossed over L knee for hip ER stretch, I/S for HEP Side right Reps/Minutes 60 Comments cued trunk posture Standing Exercises R knee flex Standing Exercise Name Standing knee flexion Side right Equipment Used cued level pelvis Reps/Minutes 3' Comments discussed but not performed today, is HEP Gait Training Gait Activity Gait with SPC/R AFO Description Gait assessmentn w/SPC & R AFO Surface Level Distance/Duration 100' Comments Pt R ankle IV's on stance phase, trunk is held stiff with lean to the right. Cued core fac and knee flexion during RLE swing phase to decrease hip elevation. Self-Care/Home Management Treatment Education Patient Education Body Mechanics,Home Exercise Program,Posture Other Education Initiated to HEP clamshell/ reverse clamshell for HEP AROM time spent cues for trunk alignment stacked on side, added pillow btwn knees for isolate hip ABDs. Discussed distance walking with importance of quality trunk gait phases like cues and performance in PT. Can tire quickly and may need rest for recovery to be aware places to sit down when walking. Suggested get wider base on SPC for added support for focus on trunk LE strengthening endurance during gait can assist until improved and can change back to SPC rubber bottom. Pt stated will think about it, feels like regressing, MASTER BAKER stated better quality than quanity and safety balance important, she verbalized understood. PT-OP-T Assessment and Plan Start: 05/23/21 18:50 Freq: Status: Active Protocol: Document 08/24/21 10:33 SP (Rec: 08/24/21 11:54 SP [id number]) Physical Therapy Assessment Goals Six Impairment Decreased functional strength Impairment Pt has difficulty raising R leg to put leg in pants. 08/10/21: pt states still bending over and putting on pants. Suggested Cross RLE over L place pant on foot then eccentrically lower RLE into pant leg for added strengthening. 08/17/21: pt states can't miantain RLE ankle on LLE put pants on so crosses RLE over LLE and puts on. Is doing hip flexion lift ex. Depending upon what chair sit in can hold RLE ankle over LLE to put on pants and ease slow RLE to floor as pull pants up R leg. Correction Goal (LTG) Pt will be able to lift R leg (in sitting) for ease of dressing (to put leg in pants) . 08/10/21: Progressing can lift RLE off ground about 5 inches intially then as reps progress not as high but only hold 2 sec before need to slow lower. 08/17/21: lift up 3 then slowly lower (AFO and shoe on, performed after 6MWT). (08/22/21: Pt able to lift R leg with assist of her UE's to place R knee over the L knee, but pt has difficulty keeping her R knee in place) LTG Duration 10/16/21 (08/22/21 progressing) Five Impairment Decreased stamina Short Term Goal (STG) Pt will be able to tolerate 10 minutes of upper body strengthening during a 38 miniute therapy session. 08/17/21: performed/ reviewed end tx didn't time. 08/22/21: UBE x 4' & 90 rpm. STG Duration 10/16/21 (08/22/21: Progressed) Social Work Supervisor Goal (LTG) Pt will have greater confidence in her walking as demonstrated by improved TUG score of 14 or less. (07/18/21: TUG 22 secs w/AFO/ cane. 05/30/21: TUG 15 w/ AFO/cane). LTG Duration 11/20/21 Four Impairment Gait dysfunction Impairment R foot drop with occasional catching of toes. Short Term Goal (STG) Increase R hip/knee/ankle strength by 1/2 grade. (07/18/21: NOT MET for: R Hip ER/IR; R Knee flex) (08/22/21: R hip ER 3+/5, IR is 3/5; initially was ER 3/5, IR 3+/5. R knee flex same at 3+/5) STG Duration 10/16/21 (07/18/21: Goal mostly met) Social Work Supervisor Goal (LTG) Legs not as tired at the end of the day with pt able to take her dog on a longer walk to end of block and back. 07/11/20: Pt only able to walk dog out to go to bathroom with cold bad weather, pre bad weather only able walk dog 3 drive[address] and back, uses SPC in LUE. PLOF reported during good weather days was able to walk approx total 1/4 mile. 08/22/21: Legs not too tired at the end of the day and walks dog 2-3x/day and can walk her dog to the end of the block and back. LTG Duration 10/16/21 (08/22/21: MET GOAL) Three Impairment Decreased Balance Impairment Loss of balance without fall 2x/day in home. Social Work Supervisor Goal (LTG) Improve balance with less reported LOB or no loss of balance with gait in home with more consistent use of AFO. 06/27/21: improved balanced gait, less R hip lateral ankle / hip deviations with new sneakers 9.5 (1 whole size larger). 07/11/20: pt reported had 2 falls (1 [address], 1 in kitchen) due to toe catching floor but not sure which foot caught the floor since last tx . Not sure why, maybe due to new sneakers 1 whole size bigger at 9.5 for AFO fit, vs 8.5. (07/18/21: No falls the past week, occasional LOB without fall) 08/17/21: had 1 fall since seen PT, not wearing shoes to go get shoes, sock got caught on nail of threshold last Sat/ Sun. Not LOB or fall since then. 08/22/21: No LOB since last reported on 08/17/21 LTG Duration 11/20/21 (08/22/21: Progressing) Two Impairment Decreased R LE strength Impairment Hip: Flexion 5/5 L, 4+/5 R; ER 3-/5 R, 2/5 L; IR 4+/5 bilaterally. Knee: Flex: 4/5 bilaterally; Ext: 3+/5 R, 5/5 L Ankle: Left: generally 5/5; Right: DF 2+/5, PF 3+/5, IV 3/ 5, EV 2/5. Short Term Goal (STG) Improve R ankle: generally 3+/ 5, R Knee: generally 4+/5; R hip AB 4/5 (07/11/20: HEP R ankle EV, DF TB #1). (07/18/21: R ankle: PF/IV is 5 /5 & DF/EV is 3-/5; R knee: Flex 3+/5, Ext 5/5; Hip AB 3-/ 5), (08/22/21: R ankle: PF/IV is 5 /5 & DF/EV is 3/5; R knee: Flex 3+/5, Ext 5/5; Hip AB 3-/ 5), STG Duration 10/16/21 (08/22/21: Improved in R ankle DF & EV strength 1 /2 grade.) Social Work Supervisor Goal (LTG) Increase R LE strength with pt able to lift self into bed at end of day with use of R leg. 07/11/20: GOAL MET: pt reports is able to lift RLE into bed now without UE support. (07/18/21: Able to boost self into bed 75% of the time.) LTG Duration 07/11/20 GOAL MET One Impairment HEP Impairment Pt goals received 05/30/21: Strengthen legs (R) & upper body; Hips feel like in alignment after sitting (R hip feels like it is forward). Short Term Goal (STG) Pt will be independent with a self care HEP of hip/knee/ ankle strengthening exercises. (05/30/21: HEP issued for hip and knee flex strengthening, STS without UE support) (06/08/21: Strengthening: Added HEP hip AB; 06/13/21: Added hip Ext. ABD 06/15/21: Added trunk rot) 06/22/21: added R ankle TB PF/ Eccentric DF, EV. (07/18/21: Verbal review of HEP of hip/knee/ankle ex's) STG Duration 06/23/21 (07/18/21: MET GOAL) Correction Goal (LTG) Pt will be independent with a self care HEP of core strengthening exercises. (06/19/21: Core strengthening ex HEP issued) (07/20/21: Added HEP trunk flex) 08/17/21: R hip flexion/ eccentric lower seated, able get up from laying down positioning w/ hands. seated TB DF, EV. LE/ Core Step up/ downs w/ BHR, corner balance NBOS, stagger. 08/24/21: added side(reverse) & clamshell. Continue seated ankle TB #2, eccentric hip flexion, seated TB trunk flex/ ext/ rotate/ SB; stand: HS curl, side stepping, step up/ downs, STS etc. LTG Duration 11/20/21 (08/24/21: Clarified trunk/hip abd strengthening) Assessment Summary Assessment Pt responded well and better understanding of clamshell and reverse clamshell to add to HEP. Pt requested condensing HEP: deleted seated HS TB, stand abd, mini squat. I can feel my muscles on side of thigh more, during gait end of tx. Better understanding safety distance gait using SPC with hip abd and core weakness has that affects balance, will consider adding wider ARMANDO to SPC for added assist and safety for gait outdoors. Physical Therapy Plan Frequency and Duration Frequency of Treatment 2x/Week Plan of Care Start Date 08/22/21 Plan of Care End Date 11/20/21 Therapeutic Interventions Therapeutic Interventions Home Exercise Program, Neuromuscular Re-education, Patient/Caregiver Education, Self-Care/Home Management, Therapeutic Activities, Therapeutic Exercises Modalities Cold Pack/Ice Massage,Hot Packs Next Visit Focus/Plan Next Note Type Treatment Note Next Visit Plan Ck Appts 2x/wk. Recheck HEP, gait, balance, add heel raises for toe off strengthening gait, assess TUG . Next tx: recheck hip strength (ext, AB, AD) & HEP. POC: gastroc stretch. Strengthen R knee flex, R ankle DF & EV, improve ROM of R ankle EV. Continue: standing balance saran stepping, NBOS and gait w/ SPC. Continue Strengthening: R Hip ER/IR; R Knee flex, remind pt HEP: ankle DF along with improved mobility. Progress endurance with UBE at end of therapy. POC: focus on neuro- reeducation for balance and improving stability/safety with gait, improving stamina & functional strength of RLE.
--- NOTE | 2021-08-29 11:15 | PT.OTN ---
Current Diagnoses Major depressive disorder, single episode, in full remission (08/29/21) Multiple sclerosis (08/29/21) Muscle weakness (generalized) (08/29/21) Age-related osteoporosis without current pathological fracture (08/29/21) Unspecified abnormalities of gait and mobility (08/29/21) Dizziness and giddiness (08/29/21) Physical Therapy Treatment Note PT-OP-A Visit Information Start: 05/23/21 18:50 Freq: Status: Active Protocol: Document 08/29/21 10:32 SP (Rec: 08/29/21 11:47 SP [id number]) Out-Patient Physical Therapy Visit Information Visit Information Visit Type Treatment Note Visit Start Time 10:32 Visit Stop Time 11:15 Total Visit Minutes 43 Visit Number 23 Number of PRODUCTION BOW MAKER Visits 2 Evaluation Information Evaluation Date 05/25/21 Precautions Precautions Multiple Sclerosis, Osteoporosis, Dizziness, back pain. R handed. Has life alerts. PT-OP-B Current Condition Start: 05/23/21 18:50 Freq: Status: Active Protocol: Document 05/25/21 11:23 LRN (Rec: 05/25/21 12:06 LRN [id number]) Current Condition History of Current Condition Onset Date 17 yrs ago. Current Complaints Progressive weakness of RLE, since dx'd with MS; spasticity of lisbet LE R>L History of Current Condition Pt reports R foot drop and LE weakness due to MS with R foot dragging for past 10-15 yrs. Has had MS since ~1971, started with numb patches in the legs and clumsy. She has had an AFO for the R ankle foot for 5 yrs ago and wears it intermittently because she can only wear it with one pair of shoes. Pt did not wear the AFO today. States her primary care physician sent her to PT at her request due to having had PT several years ago with Rojelio Slaughter, PT. Neurologist, Natalya Stewart is planning on having her fit for another AFO on R LE that will help her to move the R LE (keep the foot straight and help to raise the foot). Pt reports she sometimes gets dizzy causing LOB without falls. Daughter calls her daily. Prior Treatments and Tests Sees chiropractor every other week. Future Testing and Treatments Planned Fit for RLE brace/AFO; company to contact her within 2-3 weeks. Treatment Goals Patient/Caregiver Goals Pt goal is to work on: *Balance, less LOB (no loss of balance), *Gait, legs not as tired at the end of the day, take longer walks with dog (walking to end of block) *Strengthen R LE to improve ability to lift self into bed at end of day, pushing withGait R leg. Prior Functional Status Baseline Function- Gait Gait with cane. Current Functional Impairments (Reported) Functional Limitations- ADL's Difficulty getting into bed at end of day. Functional Limitations- Mobility/Gait Walks 1/[address] to end of block to mailbox, then home Personal Factors Other Personal Factors That May Effect MS, Osteoporsis, dizziness. Therapy/Recovery PT-OP-C Subjective Start: 05/23/21 18:50 Freq: Status: Active Protocol: Document 08/29/21 10:32 SP (Rec: 08/29/21 11:47 SP [id number]) OP-PT Subjective Patient Comments Patient Comments Pt states doesn't seem is stronger later in day after does her exercises, actually more tired and can't walk as far. PT-OP-D Balance Start: 05/23/21 18:50 Freq: Status: Active Protocol: Document 07/20/21 10:40 LRN (Rec: 07/20/21 12:17 LRN [id number]) Tinetti Balance Assessment Sitting Balance Sitting Balance Steady, safe Arising from Chair Ability to Arise Able, uses arms to help Attempts to Arise Arises on 1st attempt Standing Balance Immediate Standing Balance Steady w/o support Standing Balance Steady, wide stance Nudged Response Steady Standing with Eyes Closed Steady Turning Step Pattern Turning 360 Degrees Discontinuous steps Stability Turning 360 Degrees Steady Sitting Down Sitting Down Safe, steady Gait and Step Initiation of Gait No hesitancy Right Foot Step Length Does pass stance foot Right Foot Step Height Does not clear floor Left Foot Step Length Does pass stance foot Left Foot Step Height Completely clears floor Step Description Step Symmetry Step length not equal Step Continuity Steps appear continuous Gait Description Path Description Mild/moderate deviation Trunk Description Marked sway or uses aide Walking Stance Heels together Scoring and Interpretation Tinetti Composite Score (points) 20 Interpretation of Scores High risk for falls(< 19) Tinetti Impairment Rating from Composite 20 to <40% Impaired (Score 17- Score 22) PT-OP-E Functional Tests Start: 05/23/21 18:50 Freq: Status: Active Protocol: Document 08/29/21 10:32 SP (Rec: 08/29/21 11:47 SP [id number]) Functional Tests 6 Minute Walk Test Distance 479 ft Device Used SPC Comments cued core fac & R hip flexion for foot clearance. PT-OP-G Mobility & Gait Start: 05/23/21 18:50 Freq: Status: Active Protocol: Document 08/22/21 10:38 LRN (Rec: 08/22/21 12:20 LRN [id number]) OP Gait Assessment Gait Gait Assistance Required: Independent Distance (Feet) 100 Assistive Devices Assistive Device Straight Cane Gait Deviations General Gait Pattern Decreased Stride Length, Lateral Trunk Lean Factors Limiting Gait Function Factors Limiting Gait Function Abnormal Tonal Influences, Decreased Strength,Poor Balance Comments Gait Comments R AFO improves ankle position, but noted R ankle IV's on stance phase. PT-OP-J Posture/Palpation/Skin Start: 05/23/21 18:50 Freq: Status: Active Protocol: Document 05/25/21 11:23 LRN (Rec: 05/25/21 12:06 LRN [id number]) Posture Evaluation Position Standing Head/C-Spine Posture Forward Head Shoulder Posture (L) Elevated Knee Posture (L) Excess Flexion Ankle/Foot Posture (R) Supinated,(R) Calcaneal Inversion Comments Posture Comments L leg long, holds knee flexed. When R knee is straight, the pelvis rotates right. Slight curve of back with apex on the left. PT-OP-K Range of Motion Start: 05/23/21 18:50 Freq: Status: Active Protocol: Document 07/18/21 12:51 LRN (Rec: 07/18/21 13:37 LRN [id number]) Ankle and Foot Goniometric Range of Motion Ankle and Foot Left Active Ankle/Foot ROM WFL Yes Testing Position Sitting Dorsiflexion with Knee Flexed 7 Inversion 30 Eversion 30 Right Active Ankle/Foot ROM WFL No Testing Position Sitting Inversion 35 Eversion 10 Comments Ankle DF with knee flexed is lacking 5 deg's to neutral. PT-OP-M Strength Start: 05/23/21 18:50 Freq: Status: Active Protocol: Document 08/22/21 10:38 LRN (Rec: 08/22/21 12:20 LRN [id number]) Hip Strength Hip Manual Muscle Testing Right Flexion (L2) 5 Normal External Rotation 3+ Fair+ Internal Rotation 3+ Fair+ Left Flexion (L2) 5 Normal Extension (S1) 5 Normal Abduction 5 Normal Adduction 5 Normal External Rotation 5 Normal Internal Rotation 4+ Good+ Knee Strength Knee Manual Muscle Testing Right Flexion (S2) 3+ Fair+ Extension (L3) 5 Normal Left Flexion (S2) 5 Normal Extension (L3) 5 Normal PT-OP-Q Treatments Start: 05/23/21 18:50 Freq: Status: Active Protocol: Document 08/29/21 10:32 SP (Rec: 08/29/21 11:47 SP [id number]) Cardio Equipment Recumbent Elliptical (Whistle) Duration (Minutes) 8 Resistance lvl 3 30 RPM needed UE help> Lvl 2 LE only 40 RPM Seat Position 6 seen Other without AFO, Total steps: 776 Gym Equipment Shuttle Recovery Unilateral Squats Details cued lateral knee with toes Resistance 37> 50# LLE, 12>37 # RLE alternating Shuttle Recovery Platform Stable Reps/Time 2x12- without AFO Therapeutic Exercises Sitting Exercises STS Sitting Exercise Name reviewed HEP- eccentric chair tap Resistance AROM hands front Equipment Used 18 chair, cued contact chair slow descent Reps/Minutes 8.5 reps in 30 sec Comments cued wt foot triangle,not leanwith LEs, hip hinge slow descent, ft/knees // Gait Training Gait Activity 6MWT Device Used SPC Level of Assistance SBA > Surface firm Distance/Duration 479 ft in 6 min Treatment Focus Trunk alignment, R hip/knee flexion for foot clearance/ decrease R hip hike Comments Continue see: R ankle IV's on stance phase (AFO Donned), trunk/ RUE is held stiff with lean to the right during RLE stance phase for LLE advancement. Cued tall posture , TA awareness, level pelvis w / R knee flexion advancement to allow foot clearance, improved decrease hip hike when aware. Pt needs seconds to find balance and 2pt sequencing during gait initiation. Neuro Re-Education Treatment Balance Activities corner balance Details NBOS, stagger, tandem- HEP Review Surface firm Equipment //bar> (in corner:corner at back, back of chair at front for steady balance Reps/Duration 15 min Comments NBOS: head turns, EC 30s- stable Stagger: R forward: head turn & EC 16 sec before LOB to L chair contact L forward: head turn & EC 30 sec hold before L wt shift with self correction to midline. *cued tall posture, core and glut fac w/ weight between BLE foot, improved stability and self corrections. PT-OP-T Assessment and Plan Start: 05/23/21 18:50 Freq: Status: Active Protocol: Document 08/29/21 10:32 SP (Rec: 08/29/21 11:47 SP [id number]) Physical Therapy Assessment Goals Six Impairment Decreased functional strength Impairment Pt has difficulty raising R leg to put leg in pants. 08/10/21: pt states still bending over and putting on pants. Suggested Cross RLE over L place pant on foot then eccentrically lower RLE into pant leg for added strengthening. 08/17/21: pt states can't miantain RLE ankle on LLE put pants on so crosses RLE over LLE and puts on. Is doing hip flexion lift ex. Depending upon what chair sit in can hold RLE ankle over LLE to put on pants and ease slow RLE to floor as pull pants up R leg. Shelter Goal (LTG) Pt will be able to lift R leg (in sitting) for ease of dressing (to put leg in pants) . 08/10/21: Progressing can lift RLE off ground about 5 inches intially then as reps progress not as high but only hold 2 sec before need to slow lower. 08/17/21: lift up 3 then slowly lower (AFO and shoe on, performed after 6MWT). (08/22/21: Pt able to lift R leg with assist of her UE's to place R knee over the L knee, but pt has difficulty keeping her R knee in place) LTG Duration 10/16/21 (08/22/21 progressing) Five Impairment Decreased stamina Short Term Goal (STG) Pt will be able to tolerate 10 minutes of upper body strengthening during a 38 miniute therapy session. 08/17/21: performed/ reviewed end tx didn't time. 08/22/21: UBE x 4' & 90 rpm. STG Duration 10/16/21 (08/22/21: Progressed) Shelter Goal (LTG) Pt will have greater confidence in her walking as demonstrated by improved TUG score of 14 or less. (07/18/21: TUG 22 secs w/AFO/ cane. 05/30/21: TUG 15 w/ AFO/cane). LTG Duration 11/20/21 Four Impairment Gait dysfunction Impairment R foot drop with occasional catching of toes. Short Term Goal (STG) Increase R hip/knee/ankle strength by 1/2 grade. (07/18/21: NOT MET for: R Hip ER/IR; R Knee flex) (08/22/21: R hip ER 3+/5, IR is 3/5; initially was ER 3/5, IR 3+/5. R knee flex same at 3+/5) STG Duration 10/16/21 (07/18/21: Goal mostly met) Retarder Operator Goal (LTG) Legs not as tired at the end of the day with pt able to take her dog on a longer walk to end of block and back. 07/11/20: Pt only able to walk dog out to go to bathroom with cold bad weather, pre bad weather only able walk dog 3 [address] and back, uses SPC in LUE. PLOF reported during good weather days was able to walk approx total 1/4 mile. 08/22/21: Legs not too tired at the end of the day and walks dog 2-3x/day and can walk her dog to the end of the block and back. LTG Duration 10/16/21 (08/22/21: MET GOAL) Three Impairment Decreased Balance Impairment Loss of balance without fall 2x/day in home. Shelter Goal (LTG) Improve balance with less reported LOB or no loss of balance with gait in home with more consistent use of AFO. 06/27/21: improved balanced gait, less R hip lateral ankle / hip deviations with new sneakers 9.5 (1 whole size larger). 07/11/20: pt reported had 2 falls (1 [address], 1 in kitchen) due to toe catching floor but not sure which foot caught the floor since last tx . Not sure why, maybe due to new sneakers 1 whole size bigger at 9.5 for AFO fit, vs 8.5. (07/18/21: No falls the past week, occasional LOB without fall) 08/17/21: had 1 fall since seen PT, not wearing shoes to go get shoes, sock got caught on nail of threshold last Sat/ Sun. Not LOB or fall since then. 08/22/21: No LOB since last reported on 08/17/21 LTG Duration 11/20/21 (08/22/21: Progressing) Two Impairment Decreased R LE strength Impairment Hip: Flexion 5/5 L, 4+/5 R; ER 3-/5 R, 2/5 L; IR 4+/5 bilaterally. Knee: Flex: 4/5 bilaterally; Ext: 3+/5 R, 5/5 L Ankle: Left: generally 5/5; Right: DF 2+/5, PF 3+/5, IV 3/ 5, EV 2/5. Short Term Goal (STG) Improve R ankle: generally 3+/ 5, R Knee: generally 4+/5; R hip AB 4/5 (07/11/20: HEP R ankle EV, DF TB #1). (07/18/21: R ankle: PF/IV is 5 /5 & DF/EV is 3-/5; R knee: Flex 3+/5, Ext 5/5; Hip AB 3-/ 5), (08/22/21: R ankle: PF/IV is 5 /5 & DF/EV is 3/5; R knee: Flex 3+/5, Ext 5/5; Hip AB 3-/ 5), STG Duration 10/16/21 (08/22/21: Improved in R ankle DF & EV strength 1 /2 grade.) Shelter Goal (LTG) Increase R LE strength with pt able to lift self into bed at end of day with use of R leg. 07/11/20: GOAL MET: pt reports is able to lift RLE into bed now without UE support. (07/18/21: Able to boost self into bed 75% of the time.) LTG Duration 07/11/20 GOAL MET One Impairment HEP Impairment Pt goals received 05/30/21: Strengthen legs (R) & upper body; Hips feel like in alignment after sitting (R hip feels like it is forward). Short Term Goal (STG) Pt will be independent with a self care HEP of hip/knee/ ankle strengthening exercises. (05/30/21: HEP issued for hip and knee flex strengthening, STS without UE support) (06/08/21: Strengthening: Added HEP hip AB; 06/13/21: Added hip Ext. ABD 06/15/21: Added trunk rot) 06/22/21: added R ankle TB PF/ Eccentric DF, EV. (07/18/21: Verbal review of HEP of hip/knee/ankle ex's) STG Duration 06/23/21 (07/18/21: MET GOAL) Retarder Operator Goal (LTG) Pt will be independent with a self care HEP of core strengthening exercises. (06/19/21: Core strengthening ex HEP issued) (07/20/21: Added HEP trunk flex) 08/17/21: R hip flexion/ eccentric lower seated, able get up from laying down positioning w/ hands. seated TB DF, EV. LE/ Core Step up/ downs w/ BHR, corner balance NBOS, stagger. 08/24/21: added side(reverse) & clamshell. Continue seated ankle TB #2, eccentric hip flexion, seated TB trunk flex/ ext/ rotate/ SB; stand: HS curl, side stepping, step up/ downs, STS etc. LTG Duration 11/20/21 (08/24/21: Clarified trunk/hip abd strengthening) Assessment Summary Assessment Pt improved COG over ARMANDO balance during STS timed assessment: full stand without LOB retro and eccentric land to sit. Improved stability during corner balance review HEP, instructed only NBOS/ Stagger at this time EO head turns and EC, with improved confidence for home performance. Next tx: suggest ex in am to allow pm recovery HEP and maybe PT appts to allow mobility success throughout and end day. Physical Therapy Plan Frequency and Duration Frequency of Treatment 2x/Week Plan of Care Start Date 08/22/21 Plan of Care End Date 11/20/21 Therapeutic Interventions Therapeutic Interventions Home Exercise Program, Neuromuscular Re-education, Patient/Caregiver Education, Self-Care/Home Management, Therapeutic Activities, Therapeutic Exercises Modalities Cold Pack/Ice Massage,Hot Packs Next Visit Focus/Plan Next Note Type Treatment Note Next Visit Plan Next tx: review HEP side/ seated/stand, continue balance , add heel raises for toe off strengthening gait, assess TUG . POC: Recheck hip strength (ext , AB, AD) & HEP, gastroc stretch. Strengthen R knee flex, R ankle DF & EV, improve ROM of R ankle EV. Continue: standing balance saran stepping, NBOS and gait w/ SPC. Continue Strengthening: R Hip ER/IR; R Knee flex, remind pt HEP: ankle DF along with improved mobility. Progress endurance with UBE at end of therapy. POC: focus on neuro- reeducation for balance and improving stability/safety with gait, improving stamina & functional strength of RLE.
--- NOTE | 2021-08-31 13:17 | PT.OTN ---
Current Diagnoses Major depressive disorder, single episode, in full remission (08/31/21) Multiple sclerosis (08/31/21) Muscle weakness (generalized) (08/31/21) Age-related osteoporosis without current pathological fracture (08/31/21) Unspecified abnormalities of gait and mobility (08/31/21) Dizziness and giddiness (08/31/21) Physical Therapy Treatment Note PT-OP-A Visit Information Start: 05/23/21 18:50 Freq: Status: Active Protocol: Document 08/31/21 12:17 SP (Rec: 08/31/21 13:38 SP [id number]) Out-Patient Physical Therapy Visit Information Visit Information Visit Type Treatment Note Visit Start Time 12:17 Visit Stop Time 13:17 Total Visit Minutes 60 Visit Number 24 Number of INSURANCE HEALTHCARE REPRESENTATIVE Visits 3 Evaluation Information Evaluation Date 05/25/21 Precautions Precautions Multiple Sclerosis, Osteoporosis, Dizziness, back pain. R handed. Has life alerts. PT-OP-B Current Condition Start: 05/23/21 18:50 Freq: Status: Active Protocol: Document 05/25/21 11:23 LRN (Rec: 05/25/21 12:06 LRN [id number]) Current Condition History of Current Condition Onset Date 17 yrs ago. Current Complaints Progressive weakness of RLE, since dx'd with MS; spasticity of lisbet LE R>L History of Current Condition Pt reports R foot drop and LE weakness due to MS with R foot dragging for past 10-15 yrs. Has had MS since ~1971, started with numb patches in the legs and clumsy. She has had an AFO for the R ankle foot for 5 yrs ago and wears it intermittently because she can only wear it with one pair of shoes. Pt did not wear the AFO today. States her primary care physician sent her to PT at her request due to having had PT several years ago with Rojelio Slaughter, PT. Neurologist, Natalya Stewart is planning on having her fit for another AFO on R LE that will help her to move the R LE (keep the foot straight and help to raise the foot). Pt reports she sometimes gets dizzy causing LOB without falls. Daughter calls her daily. Prior Treatments and Tests Sees chiropractor every other week. Future Testing and Treatments Planned Fit for RLE brace/AFO; company to contact her within 2-3 weeks. Treatment Goals Patient/Caregiver Goals Pt goal is to work on: *Balance, less LOB (no loss of balance), *Gait, legs not as tired at the end of the day, take longer walks with dog (walking to end of block) *Strengthen R LE to improve ability to lift self into bed at end of day, pushing withGait R leg. Prior Functional Status Baseline Function- Gait Gait with cane. Current Functional Impairments (Reported) Functional Limitations- ADL's Difficulty getting into bed at end of day. Functional Limitations- Mobility/Gait Walks 1/[address] to end of block to mailbox, then home Personal Factors Other Personal Factors That May Effect MS, Osteoporsis, dizziness. Therapy/Recovery PT-OP-C Subjective Start: 05/23/21 18:50 Freq: Status: Active Protocol: Document 08/31/21 12:17 SP (Rec: 08/31/21 13:38 SP [id number]) OP-PT Subjective Patient Comments Patient Comments Pt reported couple days ago picked up dog facing open door and next thing found self on floor holding her dog but didn 't remember feeling of lossing her balance, didn't hurt anthing but wasn't graceful getting off floor. Pt states over all feels getting little better strength baby steps. Pt states only getting up 3 x/ night after taking little piece of edible. PT-OP-D Balance Start: 05/23/21 18:50 Freq: Status: Active Protocol: Document 07/20/21 10:40 LRN (Rec: 07/20/21 12:17 LRN [id number]) Tinetti Balance Assessment Sitting Balance Sitting Balance Steady, safe Arising from Chair Ability to Arise Able, uses arms to help Attempts to Arise Arises on 1st attempt Standing Balance Immediate Standing Balance Steady w/o support Standing Balance Steady, wide stance Nudged Response Steady Standing with Eyes Closed Steady Turning Step Pattern Turning 360 Degrees Discontinuous steps Stability Turning 360 Degrees Steady Sitting Down Sitting Down Safe, steady Gait and Step Initiation of Gait No hesitancy Right Foot Step Length Does pass stance foot Right Foot Step Height Does not clear floor Left Foot Step Length Does pass stance foot Left Foot Step Height Completely clears floor Step Description Step Symmetry Step length not equal Step Continuity Steps appear continuous Gait Description Path Description Mild/moderate deviation Trunk Description Marked sway or uses aide Walking Stance Heels together Scoring and Interpretation Tinetti Composite Score (points) 20 Interpretation of Scores High risk for falls(< 19) Tinetti Impairment Rating from Composite 20 to <40% Impaired (Score 17- Score 22) PT-OP-E Functional Tests Start: 05/23/21 18:50 Freq: Status: Active Protocol: Document 08/31/21 12:17 SP (Rec: 08/31/21 13:38 SP [id number]) Functional Tests 6 Minute Walk Test Distance 506 ft Device Used SPC Comments cued RUE arm swing, LLE foot clearance lift over cracks on floor PT-OP-G Mobility & Gait Start: 05/23/21 18:50 Freq: Status: Active Protocol: Document 08/22/21 10:38 LRN (Rec: 08/22/21 12:20 LRN [id number]) OP Gait Assessment Gait Gait Assistance Required: Independent Distance (Feet) 100 Assistive Devices Assistive Device Straight Cane Gait Deviations General Gait Pattern Decreased Stride Length, Lateral Trunk Lean Factors Limiting Gait Function Factors Limiting Gait Function Abnormal Tonal Influences, Decreased Strength,Poor Balance Comments Gait Comments R AFO improves ankle position, but noted R ankle IV's on stance phase. PT-OP-J Posture/Palpation/Skin Start: 05/23/21 18:50 Freq: Status: Active Protocol: Document 05/25/21 11:23 LRN (Rec: 05/25/21 12:06 LRN [id number]) Posture Evaluation Position Standing Head/C-Spine Posture Forward Head Shoulder Posture (L) Elevated Knee Posture (L) Excess Flexion Ankle/Foot Posture (R) Supinated,(R) Calcaneal Inversion Comments Posture Comments L leg long, holds knee flexed. When R knee is straight, the pelvis rotates right. Slight curve of back with apex on the left. PT-OP-K Range of Motion Start: 05/23/21 18:50 Freq: Status: Active Protocol: Document 07/18/21 12:51 LRN (Rec: 07/18/21 13:37 LRN [id number]) Ankle and Foot Goniometric Range of Motion Ankle and Foot Left Active Ankle/Foot ROM WFL Yes Testing Position Sitting Dorsiflexion with Knee Flexed 7 Inversion 30 Eversion 30 Right Active Ankle/Foot ROM WFL No Testing Position Sitting Inversion 35 Eversion 10 Comments Ankle DF with knee flexed is lacking 5 deg's to neutral. PT-OP-M Strength Start: 05/23/21 18:50 Freq: Status: Active Protocol: Document 08/22/21 10:38 LRN (Rec: 08/22/21 12:20 LRN [id number]) Hip Strength Hip Manual Muscle Testing Right Flexion (L2) 5 Normal External Rotation 3+ Fair+ Internal Rotation 3+ Fair+ Left Flexion (L2) 5 Normal Extension (S1) 5 Normal Abduction 5 Normal Adduction 5 Normal External Rotation 5 Normal Internal Rotation 4+ Good+ Knee Strength Knee Manual Muscle Testing Right Flexion (S2) 3+ Fair+ Extension (L3) 5 Normal Left Flexion (S2) 5 Normal Extension (L3) 5 Normal PT-OP-Q Treatments Start: 05/23/21 18:50 Freq: Status: Active Protocol: Document 08/31/21 12:17 SP (Rec: 08/31/21 13:38 SP [id number]) Cardio Equipment Recumbent Elliptical (Ku) Duration (Minutes) 8 Resistance lvl 3 LE only 40 RPM Seat Position 6 seen Other without AFO, Total steps: 666 steps Therapeutic Exercises Sidelying Exercises Reverse Clamshell Sidelying Exercise Name Reverse Clamshell- added to HEP Side right Equipment Used not needed pillow between B knees Reps/Minutes 30x Comments AFO/Shoe donned this tx, good set up/ form, cued eccentric control Clamshell Sidelying Exercise Name Clamshell- added to HEP Side right Resistance x20 AROM, TB #1 x10 hip height , good hip Equipment Used not needed pillow between B knees Comments improved stacked trunk on side , TA fac and no rolling back, slow eccentric Sitting Exercises Trunk Flex Sitting Exercise Name Trunk Flex Equipment Used Lev 4 TBand Reps/Minutes x20 Comments Cued abdominal tightening Trunk Side Bend Sitting Exercise Name Trunk SB and rotation- HEP Review Side bilateral Equipment Used Lev 4 TBand around trunk/ under arms Reps/Minutes x20 Comments cued WBOS, tall posture tolerant range- noted side TA work (noneck recruit) Trunk Ext Sitting Exercise Name Trunk Ext- HEP review Resistance Lev 4 TBand around trunk/ under arms Reps/Minutes x20 Comments Cued for start 45 deg's trunk flex to max allowable ext ROM Standing Exercises heel raises Standing Exercise Name added to HEP Side bilateral Reps/Minutes x15 Therapeutic Activity Therapeutic Activity on/ off floor Name floor transfer for confidence Reps/Minutes 8 min Comments demontration provided then able perform SBA using chair for support seated on chair<>1 /2 kneel, quadruped<> side to long sitting. Gait Training Gait Activity 6MWT Device Used SPC Level of Assistance SBA > Surface firm Distance/Duration 506 ft Treatment Focus Trunk alignment, R hip/knee flexion for foot clearance/ decrease R hip hike Comments Cued RUE arms swing and LLE foot clearance dont' step on crack. Noted SPC in LUE caught floor x2 lightly, didn' t affect balance. Lowered SPC 1 knotch with improvement and decrease L shld elevations I can bring cane forward easier . Self-Care/Home Management Treatment Education Patient Education Body Mechanics,Home Exercise Program,Safety Other Education Initiated standing heel raises and seated trunk flexion for HEP. Adjusted SPC down 1 knotch, better clearance advancement with LUE. Reviewed on/off floor for confidence and safety. Discussed performing HEP in early am day so recovery time later in day to do interested activities, pt agreed might be beneficial. PT-OP-T Assessment and Plan Start: 05/23/21 18:50 Freq: Status: Active Protocol: Document 08/31/21 12:17 SP (Rec: 08/31/21 13:38 SP [id number]) Physical Therapy Assessment Goals Six Impairment Decreased functional strength Impairment Pt has difficulty raising R leg to put leg in pants. 08/10/21: pt states still bending over and putting on pants. Suggested Cross RLE over L place pant on foot then eccentrically lower RLE into pant leg for added strengthening. 08/17/21: pt states can't miantain RLE ankle on LLE put pants on so crosses RLE over LLE and puts on. Is doing hip flexion lift ex. Depending upon what chair sit in can hold RLE ankle over LLE to put on pants and ease slow RLE to floor as pull pants up R leg. Mcc Goal (LTG) Pt will be able to lift R leg (in sitting) for ease of dressing (to put leg in pants) . 08/10/21: Progressing can lift RLE off ground about 5 inches intially then as reps progress not as high but only hold 2 sec before need to slow lower. 08/17/21: lift up 3 then slowly lower (AFO and shoe on, performed after 6MWT). (08/22/21: Pt able to lift R leg with assist of her UE's to place R knee over the L knee, but pt has difficulty keeping her R knee in place) LTG Duration 10/16/21 (08/22/21 progressing) Five Impairment Decreased stamina Short Term Goal (STG) Pt will be able to tolerate 10 minutes of upper body strengthening during a 38 miniute therapy session. 08/17/21: performed/ reviewed end tx didn't time. 08/22/21: UBE x 4' & 90 rpm. STG Duration 10/16/21 (08/22/21: Progressed) Supervisor Engraving Goal (LTG) Pt will have greater confidence in her walking as demonstrated by improved TUG score of 14 or less. (07/18/21: TUG 22 secs w/AFO/ cane. 05/30/21: TUG 15 w/ AFO/cane). LTG Duration 11/20/21 Four Impairment Gait dysfunction Impairment R foot drop with occasional catching of toes. Short Term Goal (STG) Increase R hip/knee/ankle strength by 1/2 grade. (07/18/21: NOT MET for: R Hip ER/IR; R Knee flex) (08/22/21: R hip ER 3+/5, IR is 3/5; initially was ER 3/5, IR 3+/5. R knee flex same at 3+/5) STG Duration 10/16/21 (07/18/21: Goal mostly met) Mcc Goal (LTG) Legs not as tired at the end of the day with pt able to take her dog on a longer walk to end of block and back. 07/11/20: Pt only able to walk dog out to go to bathroom with cold bad weather, pre bad weather only able walk dog 3 [address] and back, uses SPC in LUE. PLOF reported during good weather days was able to walk approx total 1/4 mile. 08/22/21: Legs not too tired at the end of the day and walks dog 2-3x/day and can walk her dog to the end of the block and back. LTG Duration 10/16/21 (08/22/21: MET GOAL) Three Impairment Decreased Balance Impairment Loss of balance without fall 2x/day in home. Mcc Goal (LTG) Improve balance with less reported LOB or no loss of balance with gait in home with more consistent use of AFO. 06/27/21: improved balanced gait, less R hip lateral ankle / hip deviations with new sneakers 9.5 (1 whole size larger). 07/11/20: pt reported had 2 falls (1 [address], 1 in kitchen) due to toe catching floor but not sure which foot caught the floor since last tx . Not sure why, maybe due to new sneakers 1 whole size bigger at 9.5 for AFO fit, vs 8.5. (07/18/21: No falls the past week, occasional LOB without fall) 08/17/21: had 1 fall since seen PT, not wearing shoes to go get shoes, sock got caught on nail of threshold last Sat/ Sun. Not LOB or fall since then. 08/22/21: No LOB since last reported on 08/17/21 LTG Duration 11/20/21 (08/22/21: Progressing) Two Impairment Decreased R LE strength Impairment Hip: Flexion 5/5 L, 4+/5 R; ER 3-/5 R, 2/5 L; IR 4+/5 bilaterally. Knee: Flex: 4/5 bilaterally; Ext: 3+/5 R, 5/5 L Ankle: Left: generally 5/5; Right: DF 2+/5, PF 3+/5, IV 3/ 5, EV 2/5. Short Term Goal (STG) Improve R ankle: generally 3+/ 5, R Knee: generally 4+/5; R hip AB 4/5 (07/11/20: HEP R ankle EV, DF TB #1). (07/18/21: R ankle: PF/IV is 5 /5 & DF/EV is 3-/5; R knee: Flex 3+/5, Ext 5/5; Hip AB 3-/ 5), (08/22/21: R ankle: PF/IV is 5 /5 & DF/EV is 3/5; R knee: Flex 3+/5, Ext 5/5; Hip AB 3-/ 5), STG Duration 10/16/21 (08/22/21: Improved in R ankle DF & EV strength 1 /2 grade.) Mcc Goal (LTG) Increase R LE strength with pt able to lift self into bed at end of day with use of R leg. 07/11/20: GOAL MET: pt reports is able to lift RLE into bed now without UE support. (07/18/21: Able to boost self into bed 75% of the time.) LTG Duration 07/11/20 GOAL MET One Impairment HEP Impairment Pt goals received 05/30/21: Strengthen legs (R) & upper body; Hips feel like in alignment after sitting (R hip feels like it is forward). Short Term Goal (STG) Pt will be independent with a self care HEP of hip/knee/ ankle strengthening exercises. (05/30/21: HEP issued for hip and knee flex strengthening, STS without UE support) (06/08/21: Strengthening: Added HEP hip AB; 06/13/21: Added hip Ext. ABD 06/15/21: Added trunk rot) 06/22/21: added R ankle TB PF/ Eccentric DF, EV. (07/18/21: Verbal review of HEP of hip/knee/ankle ex's) STG Duration 06/23/21 (07/18/21: MET GOAL) Mcc Goal (LTG) Pt will be independent with a self care HEP of core strengthening exercises. (06/19/21: Core strengthening ex HEP issued) (07/20/21: Added HEP trunk flex) 08/17/21: R hip flexion/ eccentric lower seated, able get up from laying down positioning w/ hands. seated TB DF, EV. LE/ Core Step up/ downs w/ BHR, corner balance NBOS, stagger. 08/24/21: added side(reverse) & clamshell. Continue seated ankle TB #2, eccentric hip flexion, seated TB trunk flex/ ext/ rotate/ SB; stand: HS curl, side stepping, step up/ downs, STS etc. LTG Duration 11/20/21 (08/24/21: Clarified trunk/hip abd strengthening) Assessment Summary Assessment Pt able to walk 27 more ft in 6 min with improved arm RUE arm swing and foot clearance with modified cues. Pt more confident in seated and ( reverse) clamshell HEP this tx post review. Pt found review floor transfer helpful for home in case ever has to perform. Next tx will focus on update goals, TUG testing and balance picking up objects off floor for confidence in personal goal of balance with dog and walking with friends. Physical Therapy Plan Frequency and Duration Frequency of Treatment 2x/Week Plan of Care Start Date 08/22/21 Plan of Care End Date 11/20/21 Therapeutic Interventions Therapeutic Interventions Home Exercise Program, Neuromuscular Re-education, Patient/Caregiver Education, Self-Care/Home Management, Therapeutic Activities, Therapeutic Exercises Modalities Cold Pack/Ice Massage,Hot Packs Next Visit Focus/Plan Next Note Type Treatment Note Next Visit Plan Next tx: recheck heel raises, calf stretching, balance reach balls on cones floor, reassess TUG. Progress endurance with UBE at end of therapy. POC: Recheck hip strength (ext , AB, AD) & HEP, gastroc stretch. Strengthen R knee flex, R ankle DF & EV, improve ROM of R ankle EV. Continue: standing balance saran stepping, NBOS and gait w/ SPC. Continue Strengthening: R Hip ER/IR; R Knee flex, remind pt HEP: ankle DF along with improved mobility. POC: focus on neuro- reeducation for balance and improving stability/safety with gait, improving stamina & functional strength of RLE.
--- NOTE | 2021-09-12 11:18 | PT.OTN ---
Current Diagnoses Major depressive disorder, single episode, in full remission (09/12/21) Multiple sclerosis (09/12/21) Muscle weakness (generalized) (09/12/21) Age-related osteoporosis without current pathological fracture (09/12/21) Unspecified abnormalities of gait and mobility (09/12/21) Dizziness and giddiness (09/12/21) Physical Therapy Treatment Note PT-OP-A Visit Information Start: 05/23/21 18:50 Freq: Status: Active Protocol: Document 09/12/21 10:32 SP (Rec: 09/12/21 11:44 SP [id number]) Out-Patient Physical Therapy Visit Information Visit Information Visit Type Treatment Note Visit Start Time 10:32 Visit Stop Time 11:18 Total Visit Minutes 46 Visit Number 25 Number of FLOOR LAYER Visits 4 Evaluation Information Evaluation Date 05/25/21 Precautions Precautions Multiple Sclerosis, Osteoporosis, Dizziness, back pain. R handed. Has life alerts. PT-OP-B Current Condition Start: 05/23/21 18:50 Freq: Status: Active Protocol: Document 05/25/21 11:23 LRN (Rec: 05/25/21 12:06 LRN [id number]) Current Condition History of Current Condition Onset Date 17 yrs ago. Current Complaints Progressive weakness of RLE, since dx'd with MS; spasticity of lisbet LE R>L History of Current Condition Pt reports R foot drop and LE weakness due to MS with R foot dragging for past 10-15 yrs. Has had MS since ~1971, started with numb patches in the legs and clumsy. She has had an AFO for the R ankle foot for 5 yrs ago and wears it intermittently because she can only wear it with one pair of shoes. Pt did not wear the AFO today. States her primary care physician sent her to PT at her request due to having had PT several years ago with Rojelio Slaughter, PT. Neurologist, Natalya Stewart is planning on having her fit for another AFO on R LE that will help her to move the R LE (keep the foot straight and help to raise the foot). Pt reports she sometimes gets dizzy causing LOB without falls. Daughter calls her daily. Prior Treatments and Tests Sees chiropractor every other week. Future Testing and Treatments Planned Fit for RLE brace/AFO; company to contact her within 2-3 weeks. Treatment Goals Patient/Caregiver Goals Pt goal is to work on: *Balance, less LOB (no loss of balance), *Gait, legs not as tired at the end of the day, take longer walks with dog (walking to end of block) *Strengthen R LE to improve ability to lift self into bed at end of day, pushing withGait R leg. Prior Functional Status Baseline Function- Gait Gait with cane. Current Functional Impairments (Reported) Functional Limitations- ADL's Difficulty getting into bed at end of day. Functional Limitations- Mobility/Gait Walks 1/[address] to end of block to mailbox, then home Personal Factors Other Personal Factors That May Effect MS, Osteoporsis, dizziness. Therapy/Recovery PT-OP-C Subjective Start: 05/23/21 18:50 Freq: Status: Active Protocol: Document 09/12/21 10:32 SP (Rec: 09/12/21 11:44 SP [id number]) OP-PT Subjective Patient Comments Patient Comments Pt stated wasn't able to get an appt since last tx, therapist schedules busy. Pt states compliant with HEP. She is going out of town wk October for rest of the month, not sure exact dates yet. She feels wants to continue therapy though and if should get another referral. PT-OP-D Balance Start: 05/23/21 18:50 Freq: Status: Active Protocol: Document 07/20/21 10:40 LRN (Rec: 07/20/21 12:17 LRN [id number]) Tinetti Balance Assessment Sitting Balance Sitting Balance Steady, safe Arising from Chair Ability to Arise Able, uses arms to help Attempts to Arise Arises on 1st attempt Standing Balance Immediate Standing Balance Steady w/o support Standing Balance Steady, wide stance Nudged Response Steady Standing with Eyes Closed Steady Turning Step Pattern Turning 360 Degrees Discontinuous steps Stability Turning 360 Degrees Steady Sitting Down Sitting Down Safe, steady Gait and Step Initiation of Gait No hesitancy Right Foot Step Length Does pass stance foot Right Foot Step Height Does not clear floor Left Foot Step Length Does pass stance foot Left Foot Step Height Completely clears floor Step Description Step Symmetry Step length not equal Step Continuity Steps appear continuous Gait Description Path Description Mild/moderate deviation Trunk Description Marked sway or uses aide Walking Stance Heels together Scoring and Interpretation Tinetti Composite Score (points) 20 Interpretation of Scores High risk for falls(< 19) Tinetti Impairment Rating from Composite 20 to <40% Impaired (Score 17- Score 22) PT-OP-E Functional Tests Start: 05/23/21 18:50 Freq: Status: Active Protocol: Document 09/12/21 10:32 SP (Rec: 09/12/21 11:44 SP [id number]) Functional Tests Timed Up and Go (TUG) Score 16s, 13s,13s Comments Use of GB/SPC/R AFO TUG Impairment Rating 20 to <40% Impaired (Score 12- 13) PT-OP-G Mobility & Gait Start: 05/23/21 18:50 Freq: Status: Active Protocol: Document 08/22/21 10:38 LRN (Rec: 08/22/21 12:20 LRN [id number]) OP Gait Assessment Gait Gait Assistance Required: Independent Distance (Feet) 100 Assistive Devices Assistive Device Straight Cane Gait Deviations General Gait Pattern Decreased Stride Length, Lateral Trunk Lean Factors Limiting Gait Function Factors Limiting Gait Function Abnormal Tonal Influences, Decreased Strength,Poor Balance Comments Gait Comments R AFO improves ankle position, but noted R ankle IV's on stance phase. PT-OP-J Posture/Palpation/Skin Start: 05/23/21 18:50 Freq: Status: Active Protocol: Document 05/25/21 11:23 LRN (Rec: 05/25/21 12:06 LRN [id number]) Posture Evaluation Position Standing Head/C-Spine Posture Forward Head Shoulder Posture (L) Elevated Knee Posture (L) Excess Flexion Ankle/Foot Posture (R) Supinated,(R) Calcaneal Inversion Comments Posture Comments L leg long, holds knee flexed. When R knee is straight, the pelvis rotates right. Slight curve of back with apex on the left. PT-OP-K Range of Motion Start: 05/23/21 18:50 Freq: Status: Active Protocol: Document 07/18/21 12:51 LRN (Rec: 07/18/21 13:37 LRN [id number]) Ankle and Foot Goniometric Range of Motion Ankle and Foot Left Active Ankle/Foot ROM WFL Yes Testing Position Sitting Dorsiflexion with Knee Flexed 7 Inversion 30 Eversion 30 Right Active Ankle/Foot ROM WFL No Testing Position Sitting Inversion 35 Eversion 10 Comments Ankle DF with knee flexed is lacking 5 deg's to neutral. PT-OP-M Strength Start: 05/23/21 18:50 Freq: Status: Active Protocol: Document 08/22/21 10:38 LRN (Rec: 08/22/21 12:20 LRN [id number]) Hip Strength Hip Manual Muscle Testing Right Flexion (L2) 5 Normal External Rotation 3+ Fair+ Internal Rotation 3+ Fair+ Left Flexion (L2) 5 Normal Extension (S1) 5 Normal Abduction 5 Normal Adduction 5 Normal External Rotation 5 Normal Internal Rotation 4+ Good+ Knee Strength Knee Manual Muscle Testing Right Flexion (S2) 3+ Fair+ Extension (L3) 5 Normal Left Flexion (S2) 5 Normal Extension (L3) 5 Normal PT-OP-Q Treatments Start: 05/23/21 18:50 Freq: Status: Active Protocol: Document 09/12/21 10:32 SP (Rec: 09/12/21 11:44 SP [id number]) Cardio Equipment Recumbent Stepper (Sci-Fit) Duration (Minutes) 6 Resistance 2 Seat Position 8 Other 65 RPM, UE/LEs, 0.82 miles Gait Training Gait Activity stairs Description ascend/descend for strength and balance Device Used L HR, SPC in RUE (ascend) Level of Assistance CG- SBA Distance/Duration 4 stairs x2 sets Treatment Focus balance stability, RLE foot placement/ clearance Comments pt receiprocal gait ascend/ descend, good SPC placement step ahead ascend/descend, slower pacing noted improved stability. Decrease strength RLE stance LE lowering LLE to next step, noted increased BUE WB Gait with SPC/R AFO Description dynamic gait: head turns, looking up Device Used SPC, GB, RLE AFO Level of Assistance CGA Surface Level Distance/Duration 100 ft Treatment Focus stability, balance recovery Comments occasional cue for RLE knee/ hip flexion to allow foot clearance, tall posture. Neuro Re-Education Treatment Balance Activities corner balance Details NBOS, stagger, tandem- HEP Review Surface firm Equipment //bar> (in corner:corner at back, back of chair at front for steady balance Reps/Duration 10 min Comments NBOS: head turns, EC 30s- stable Stagger: R forward: head turn & EC 30 sec L forward: head turn & EC 27 sec unsteady had to open eyes and contact self recovery * Good self corrections tall posture, core and glut fac w/ weight between BLE foot, improved stability and self corrections. Tandem: R forward: EO 20 sec before LOB contact self recovery L forward: 10s before LOB, 30s after ed wt between BLE more forward into L foot. hurdles Details 6 hurdles walking over lead R and L LE Surface firm Equipment SPC, CGA Reps/Duration x4 reps (circular distance near rail) Comments CG- 5%A cued R knee/ hip flexion leading and trailing LE over saran, decrease circumduction PT-OP-T Assessment and Plan Start: 05/23/21 18:50 Freq: Status: Active Protocol: Document 09/12/21 10:32 SP (Rec: 09/12/21 11:44 SP [id number]) Physical Therapy Assessment Goals Six Impairment Decreased functional strength Impairment Pt has difficulty raising R leg to put leg in pants. 08/10/21: pt states still bending over and putting on pants. Suggested Cross RLE over L place pant on foot then eccentrically lower RLE into pant leg for added strengthening. 08/17/21: pt states can't miantain RLE ankle on LLE put pants on so crosses RLE over LLE and puts on. Is doing hip flexion lift ex. Depending upon what chair sit in can hold RLE ankle over LLE to put on pants and ease slow RLE to floor as pull pants up R leg. Director Epidemiology Goal (LTG) Pt will be able to lift R leg (in sitting) for ease of dressing (to put leg in pants) . 08/10/21: Progressing can lift RLE off ground about 5 inches intially then as reps progress not as high but only hold 2 sec before need to slow lower. 08/17/21: lift up 3 then slowly lower (AFO and shoe on, performed after 6MWT). (08/22/21: Pt able to lift R leg with assist of her UE's to place R knee over the L knee, but pt has difficulty keeping her R knee in place) 09/12/21: able to put RLE over L to put on pants and not have to hold as hard, staying better. LTG Duration 10/16/21 (09/12/21 progressing ) Five Impairment Decreased stamina Short Term Goal (STG) Pt will be able to tolerate 10 minutes of upper body strengthening during a 38 miniute therapy session. 08/17/21: performed/ reviewed end tx didn't time. 08/22/21: UBE x 4' & 90 rpm. 09/12/21: scifit: 6 min UE/LEs STG Duration 10/16/21 (09/12/21: Progressed ) Half-Way Goal (LTG) Pt will have greater confidence in her walking as demonstrated by improved TUG score of 14 or less. (07/18/21: TUG 22 secs w/AFO/ cane. 05/30/21: TUG 15 w/ AFO/cane). 09/12/21: GOAL MET: TUG 16s, 13s , 13s=20-40% impaired improved from 15 on 05/30/21. LTG Duration 11/20/21 (09/12/21: goal MET Four Impairment Gait dysfunction Impairment R foot drop with occasional catching of toes. Short Term Goal (STG) Increase R hip/knee/ankle strength by 1/2 grade. (07/18/21: NOT MET for: R Hip ER/IR; R Knee flex) (08/22/21: R hip ER 3+/5, IR is 3/5; initially was ER 3/5, IR 3+/5. R knee flex same at 3+/5) STG Duration 10/16/21 (07/18/21: Goal mostly met) Half-Way Goal (LTG) Legs not as tired at the end of the day with pt able to take her dog on a longer walk to end of block and back. 07/11/20: Pt only able to walk dog out to go to bathroom with cold bad weather, pre bad weather only able walk dog 3 drive[address] and back, uses SPC in LUE. PLOF reported during good weather days was able to walk approx total 1/4 mile. 08/22/21: Legs not too tired at the end of the day and walks dog 2-3x/day and can walk her dog to the end of the block and back. LTG Duration 10/16/21 (08/22/21: MET GOAL) Three Impairment Decreased Balance Impairment Loss of balance without fall 2x/day in home. Director Epidemiology Goal (LTG) Improve balance with less reported LOB or no loss of balance with gait in home with more consistent use of AFO. 06/27/21: improved balanced gait, less R hip lateral ankle / hip deviations with new sneakers 9.5 (1 whole size larger). 07/11/20: pt reported had 2 falls ([address], 1 in kitchen) due to toe catching floor but not sure which foot caught the floor since last tx . Not sure why, maybe due to new sneakers 1 whole size bigger at 9.5 for AFO fit, vs 8.5. (07/18/21: No falls the past week, occasional LOB without fall) 08/17/21: had 1 fall since seen PT, not wearing shoes to go get shoes, sock got caught on nail of threshold last Sat/ Sun. Not LOB or fall since then. 08/22/21: No LOB since last reported on 08/17/21 09/12/21: Pt reports no LOB in home with AFO 90% of the time donned. LTG Duration 11/20/21 (09/12/21: MEt GOal) Two Impairment Decreased R LE strength Impairment Hip: Flexion 5/5 L, 4+/5 R; ER 3-/5 R, 2/5 L; IR 4+/5 bilaterally. Knee: Flex: 4/5 bilaterally; Ext: 3+/5 R, 5/5 L Ankle: Left: generally 5/5; Right: DF 2+/5, PF 3+/5, IV 3/ 5, EV 2/5. Short Term Goal (STG) Improve R ankle: generally 3+/ 5, R Knee: generally 4+/5; R hip AB 4/5 (07/11/20: HEP R ankle EV, DF TB #1). (07/18/21: R ankle: PF/IV is 5 /5 & DF/EV is 3-/5; R knee: Flex 3+/5, Ext 5/5; Hip AB 3-/ 5), (08/22/21: R ankle: PF/IV is 5 /5 & DF/EV is 3/5; R knee: Flex 3+/5, Ext 5/5; Hip AB 3-/ 5), STG Duration 10/16/21 (08/22/21: Improved in R ankle DF & EV strength 1 /2 grade.) Half-Way Goal (LTG) Increase R LE strength with pt able to lift self into bed at end of day with use of R leg. 07/11/20: GOAL MET: pt reports is able to lift RLE into bed now without UE support. (07/18/21: Able to boost self into bed 75% of the time.) LTG Duration 07/11/20 GOAL MET One Impairment HEP Impairment Pt goals received 05/30/21: Strengthen legs (R) & upper body; Hips feel like in alignment after sitting (R hip feels like it is forward). Short Term Goal (STG) Pt will be independent with a self care HEP of hip/knee/ ankle strengthening exercises. (05/30/21: HEP issued for hip and knee flex strengthening, STS without UE support) (06/08/21: Strengthening: Added HEP hip AB; 06/13/21: Added hip Ext. ABD 06/15/21: Added trunk rot) 06/22/21: added R ankle TB PF/ Eccentric DF, EV. (07/18/21: Verbal review of HEP of hip/knee/ankle ex's) STG Duration 06/23/21 (07/18/21: MET GOAL) Director Epidemiology Goal (LTG) Pt will be independent with a self care HEP of core strengthening exercises. (06/19/21: Core strengthening ex HEP issued) (07/20/21: Added HEP trunk flex) 08/17/21: R hip flexion/ eccentric lower seated, able get up from laying down positioning w/ hands. seated TB DF, EV. LE/ Core Step up/ downs w/ BHR, corner balance NBOS, stagger. 08/24/21: added side(reverse) & clamshell. Continue seated ankle TB #2, eccentric hip flexion, seated TB trunk flex/ ext/ rotate/ SB; stand: HS curl, side stepping, step up/ downs, STS etc. LTG Duration 11/20/21 (08/24/21: Clarified trunk/hip abd strengthening) Progress Towards Goals Progress Towards Goals Progressing Toward Goals Progress Comments GOAL MET #5: Improved TUG from 100% to 20-40% impaired ( score 22>13). Assessment Summary Assessment Pt improved in TUG by 2 point score reduction in impairment from 40-60% to 20-40% impaired . Pt able to walk over multiple hurdles with just SPC support, no LOB or deviations , able to clear RLE with decrease circumduction with no cues and pt verbalized need to flex knee more so not to swing RLE. Pt ableto walk with head turns no deviations or LOB, little slower pacing to complete. Pt states still not ableto walk the distance outside that wants to do with a friend but notices improvement. Recommend continue PT and progress dymnamic gait/ balance for increased functional independence. Physical Therapy Plan Frequency and Duration Frequency of Treatment 2x/Week Plan of Care Start Date 08/22/21 Plan of Care End Date 11/20/21 Therapeutic Interventions Therapeutic Interventions Home Exercise Program, Neuromuscular Re-education, Patient/Caregiver Education, Self-Care/Home Management, Therapeutic Activities, Therapeutic Exercises Modalities Cold Pack/Ice Massage,Hot Packs Next Visit Focus/Plan Next Note Type Treatment Note Next Visit Plan Next tx: add gait to POC and new gait goal, add balance goal. POC: Progress endurance with UBE at end of therapy. Recheck hip strength (ext, AB, AD) & HEP, gastroc stretch. Strengthen R knee flex, R ankle DF & EV, improve ROM of R ankle EV. Continue: standing balance saran stepping, NBOS and gait w/ SPC. Continue Strengthening: R Hip ER/IR; R Knee flex, remind pt HEP: ankle DF along with improved mobility. POC: focus on neuro- reeducation for balance and improving stability/safety with gait, improving stamina & functional strength of RLE.
--- NOTE | 2021-09-19 16:57 | PT.OTN ---
Current Diagnoses Major depressive disorder, single episode, in full remission (09/19/21) Multiple sclerosis (09/19/21) Muscle weakness (generalized) (09/19/21) Age-related osteoporosis without current pathological fracture (09/19/21) Unspecified abnormalities of gait and mobility (09/19/21) Dizziness and giddiness (09/19/21) Physical Therapy Treatment Note PT-OP-A Visit Information Start: 05/23/21 18:50 Freq: Status: Active Protocol: Document 09/19/21 10:30 LRN (Rec: 09/19/21 12:25 LRN [id number]) Out-Patient Physical Therapy Visit Information Visit Information Visit Type Progress Note Visit Start Time 10:30 Visit Stop Time 11:19 Total Visit Minutes 49 Visit Number 26 Evaluation Information Evaluation Date 05/25/21 Precautions Precautions Multiple Sclerosis, Osteoporosis, Dizziness, back pain. R handed. Has life alerts. PT-OP-B Current Condition Start: 05/23/21 18:50 Freq: Status: Active Protocol: Document 05/25/21 11:23 LRN (Rec: 05/25/21 12:06 LRN [id number]) Current Condition History of Current Condition Onset Date 17 yrs ago. Current Complaints Progressive weakness of RLE, since dx'd with MS; spasticity of lisbet LE R>L History of Current Condition Pt reports R foot drop and LE weakness due to MS with R foot dragging for past 10-15 yrs. Has had MS since ~1971, started with numb patches in the legs and clumsy. She has had an AFO for the R ankle foot for 5 yrs ago and wears it intermittently because she can only wear it with one pair of shoes. Pt did not wear the AFO today. States her primary care physician sent her to PT at her request due to having had PT several years ago with Rojelio Slaughter, PT. Neurologist, Natalya Stewart is planning on having her fit for another AFO on R LE that will help her to move the R LE (keep the foot straight and help to raise the foot). Pt reports she sometimes gets dizzy causing LOB without falls. Daughter calls her daily. Prior Treatments and Tests Sees chiropractor every other week. Future Testing and Treatments Planned Fit for RLE brace/AFO; company to contact her within 2-3 weeks. Treatment Goals Patient/Caregiver Goals Pt goal is to work on: *Balance, less LOB (no loss of balance), *Gait, legs not as tired at the end of the day, take longer walks with dog (walking to end of block) *Strengthen R LE to improve ability to lift self into bed at end of day, pushing withGait R leg. Prior Functional Status Baseline Function- Gait Gait with cane. Current Functional Impairments (Reported) Functional Limitations- ADL's Difficulty getting into bed at end of day. Functional Limitations- Mobility/Gait Walks 1/[address] to end of block to mailbox, then home Personal Factors Other Personal Factors That May Effect MS, Osteoporsis, dizziness. Therapy/Recovery PT-OP-C Subjective Start: 05/23/21 18:50 Freq: Status: Active Protocol: Document 09/19/21 10:30 LRN (Rec: 09/19/21 12:25 LRN [id number]) OP-PT Subjective Patient Comments Patient Comments Walked with cane/R AFO with friend 1.2 miles, it is the 3- 4th walk since starting therapy. States she had PT beforehand and was physically exhausted. She plans to walk tomorrow. Stamina improving. improving in just about everything. Step is improving and thinks more about lifting R knee when walking. People compliment her on how she is walking. Dressing, states she needs to help with hands to keep her R leg crossed over the L for dressing. Patient Reported Progress Improving PT-OP-D Balance Start: 05/23/21 18:50 Freq: Status: Active Protocol: Document 09/19/21 10:30 LRN (Rec: 09/19/21 12:25 LRN [id number]) Balance Tests Other Other Balance Tests Performed EO on solid surface: 60 secs EC on solid surface: 60 secs EO on soft surface (blue foam) : 60 secs EC on soft surface (blue foam) : 1 sec PT-OP-E Functional Tests Start: 05/23/21 18:50 Freq: Status: Active Protocol: Document 09/12/21 10:32 SP (Rec: 09/12/21 11:44 SP [id number]) Functional Tests Timed Up and Go (TUG) Score 16s, 13s,13s Comments Use of GB/SPC/R AFO TUG Impairment Rating 20 to <40% Impaired (Score 12- 13) PT-OP-G Mobility & Gait Start: 05/23/21 18:50 Freq: Status: Active Protocol: Document 08/22/21 10:38 LRN (Rec: 08/22/21 12:20 LRN [id number]) OP Gait Assessment Gait Gait Assistance Required: Independent Distance (Feet) 100 Assistive Devices Assistive Device Straight Cane Gait Deviations General Gait Pattern Decreased Stride Length, Lateral Trunk Lean Factors Limiting Gait Function Factors Limiting Gait Function Abnormal Tonal Influences, Decreased Strength,Poor Balance Comments Gait Comments R AFO improves ankle position, but noted R ankle IV's on stance phase. PT-OP-J Posture/Palpation/Skin Start: 05/23/21 18:50 Freq: Status: Active Protocol: Document 05/25/21 11:23 LRN (Rec: 05/25/21 12:06 LRN [id number]) Posture Evaluation Position Standing Head/C-Spine Posture Forward Head Shoulder Posture (L) Elevated Knee Posture (L) Excess Flexion Ankle/Foot Posture (R) Supinated,(R) Calcaneal Inversion Comments Posture Comments L leg long, holds knee flexed. When R knee is straight, the pelvis rotates right. Slight curve of back with apex on the left. PT-OP-K Range of Motion Start: 05/23/21 18:50 Freq: Status: Active Protocol: Document 07/18/21 12:51 LRN (Rec: 07/18/21 13:37 LRN [id number]) Ankle and Foot Goniometric Range of Motion Ankle and Foot Left Active Ankle/Foot ROM WFL Yes Testing Position Sitting Dorsiflexion with Knee Flexed 7 Inversion 30 Eversion 30 Right Active Ankle/Foot ROM WFL No Testing Position Sitting Inversion 35 Eversion 10 Comments Ankle DF with knee flexed is lacking 5 deg's to neutral. PT-OP-M Strength Start: 05/23/21 18:50 Freq: Status: Active Protocol: Document 08/22/21 10:38 LRN (Rec: 08/22/21 12:20 LRN [id number]) Hip Strength Hip Manual Muscle Testing Right Flexion (L2) 5 Normal External Rotation 3+ Fair+ Internal Rotation 3+ Fair+ Left Flexion (L2) 5 Normal Extension (S1) 5 Normal Abduction 5 Normal Adduction 5 Normal External Rotation 5 Normal Internal Rotation 4+ Good+ Knee Strength Knee Manual Muscle Testing Right Flexion (S2) 3+ Fair+ Extension (L3) 5 Normal Left Flexion (S2) 5 Normal Extension (L3) 5 Normal PT-OP-Q Treatments Start: 05/23/21 18:50 Freq: Status: Active Protocol: Document 09/19/21 10:30 LRN (Rec: 09/19/21 12:25 LRN [id number]) Cardio Equipment Recumbent Elliptical ([employer]iod[employer]bits) Duration (Minutes) 8 Resistance lvl 4 Seat Position 8 Other 50 rpm, UE/LEs. Therapeutic Exercises Sitting Exercises R knee angel flex Sitting Exercise Name R knee angel flex with knee crossed over L knee - HEP I/S Reps/Minutes 4' (holding 5 secs) R leg lifting over L knee Sitting Exercise Name Putting pants on motion Side right Reps/Minutes 8' Hip ER/IR Sitting Exercise Name Hip IR Side bilateral Reps/Minutes 2' Comments MMT taken Knee flex Sitting Exercise Name Knee flex & ext Side bilateral Reps/Minutes 4' Comments MMT taken Standing Exercises Hip Ext Standing Exercise Name Hip Ext Side right Reps/Minutes 3' Comments MMT taken Neuro Re-Education Treatment Balance Activities Standing EC Details EC-Feet together static standing Equipment Blue cushion Reps/Duration 7' Comments Close guarding. Pt had increased sway at end of times (soft surface worse than solid surface). Standing EO Details EO-Feet together static standing Surface Solid & soft surface Equipment Blue cushion Reps/Duration 7' Comments Close guarding. Pt had increased sway at end of times (soft surface worse than solid surface). Self-Care/Home Management Treatment Education Other Education Discussed with pt plan of care and recommendations of vestibular evaluation. PT-OP-T Assessment and Plan Start: 05/23/21 18:50 Freq: Status: Active Protocol: Document 09/19/21 10:30 LRN (Rec: 09/19/21 12:25 LRN [id number]) Physical Therapy Assessment Rehab Potential Rehabilitation Potential Good Evaluation Complexity Number of Personal Factors/Comorbidities 3 or More Number of Body Systems Impaired 4 or More Clinical Presentation at Evaluation Evolving Impairments Impairments Activity Tolerance,Balance, Functional Activities,Gait,ROM ,Strength Goals Decreased balance on unlevel surfaces. Impairment Decreased balance on unlevel surface. Impairment EC on soft surface standing feet together: 1 sec EC on solid surface standing feet together: 60+ secs Celery Stripper Goal (LTG) Improve pt's balance on soft/ uneven surfaces with pt able to walk on part of [place] with cane/R AFO independently and with increased confidence in safety with gait and no loss of balance. LTG Duration 12/18/21 Seven Impairment Increased sway with turning generally 2x/week. Impairment Near fall with turning ~2x/ week. Short Term Goal (STG) Vestibular assessment for inner ear dysfunction causing dizziness on turning. STG Duration 11/16/21 Celery Stripper Goal (LTG) Pt able to turn with confidence and abby near fall episodes to no more than 1-2/ month. LTG Duration 12/18/21 Six Impairment Decreased functional strength Impairment Pt has difficulty raising R leg to put leg in pants. 08/10/21: pt states still bending over and putting on pants. Suggested Cross RLE over L place pant on foot then eccentrically lower RLE into pant leg for added strengthening. 08/17/21: pt states can't miantain RLE ankle on LLE put pants on so crosses RLE over LLE and puts on. Is doing hip flexion lift ex. Depending upon what chair sit in can hold RLE ankle over LLE to put on pants and ease slow RLE to floor as pull pants up R leg. [facility] Goal (LTG) Pt will be able to lift R leg (in sitting) for ease of dressing (to put leg in pants) . 08/10/21: Progressing can lift RLE off ground about 5 inches intially then as reps progress not as high but only hold 2 sec before need to slow lower. 08/17/21: lift up 3 then slowly lower (AFO and shoe on, performed after 6MWT). (08/22/21: Pt able to lift R leg with assist of her UE's to place R knee over the L knee, but pt has difficulty keeping her R knee in place) 09/12/21: able to put RLE over L to put on pants and not have to hold as hard, staying better. LTG Duration 12/18/21 (09/12/21 progressing) Five Impairment Decreased stamina Short Term Goal (STG) Pt will be able to tolerate 10 minutes of upper body strengthening during a 38 miniute therapy session. 08/17/21: performed/ reviewed end tx didn't time. 08/22/21: UBE x 4' & 90 rpm. 09/12/21: scifit: 6 min UE/LEs 09/19/21: Biodex x 8' UE/LEs STG Duration 11/16/21 (09/29/21: Progressed) Celery Stripper Goal (LTG) Pt will have greater confidence in her walking as demonstrated by improved TUG score of 14 or less. (07/18/21: TUG 22 secs w/AFO/ cane. 05/30/21: TUG 15 w/ AFO/cane). 09/12/21: GOAL MET: TUG 16s, 13s , 13s=20-40% impaired improved from 15 on 05/30/21. LTG Duration 11/20/21 (09/12/21: MET GOAL) Four Impairment Gait dysfunction Impairment R foot drop with occasional catching of toes. Short Term Goal (STG) Increase R hip/knee/ankle strength by 1/2 grade. (07/18/21: NOT MET for: R Hip ER/IR; R Knee flex) (08/22/21: R hip ER 3+/5, IR is 3/5; initially was ER 3/5, IR 3+/5. R knee flex same at 3+/5) STG Duration 11/16/21 (07/18/21: Goal mostly met) Celery Stripper Goal (LTG) Legs not as tired at the end of the day with pt able to take her dog on a longer walk to end of block and back. 07/11/20: Pt only able to walk dog out to go to bathroom with cold bad weather, pre bad weather only able walk dog 3 [address] and back, uses SPC in LUE. PLOF reported during good weather days was able to walk approx total 1/4 mile. 08/22/21: Legs not too tired at the end of the day and walks dog 2-3x/day and can walk her dog to the end of the block and back. (09/19/21: 1x/week doing a long walk of 1+mile, usually early afternoon). LTG Duration 10/16/21 (08/22/21: MET GOAL) Three Impairment Decreased Balance Impairment Loss of balance without fall 2x/day in home. [facility]cf Goal (LTG) Improve balance with less reported LOB or no loss of balance with gait in home with more consistent use of AFO. 06/27/21: improved balanced gait, less R hip lateral ankle / hip deviations with new sneakers 9.5 (1 whole size larger). 07/11/20: pt reported had 2 falls (1 [address] driveway, 1 in kitchen) due to toe catching floor but not sure which foot caught the floor since last tx . Not sure why, maybe due to new sneakers 1 whole size bigger at 9.5 for AFO fit, vs 8.5. (07/18/21: No falls the past week, occasional LOB without fall) 08/17/21: had 1 fall since seen PT, not wearing shoes to go get shoes, sock got caught on nail of threshold last Sat/ Sun. Not LOB or fall since then. 08/22/21: No LOB since last reported on 08/17/21 09/12/21: Pt reports no LOB in home with AFO 90% of the time donned. 09/19/21: Thinks balance is being effected by the crystals in her ears. LOB day before yesterday with brief sec when turning around, but was able to catch self. LTG Duration 11/20/21 (09/12/21: MET GOAL) Two Impairment Decreased R LE strength Impairment Hip: Flexion 5/5 L, 4+/5 R; ER 3-/5 R, 2/5 L; IR 4+/5 bilaterally. Knee: Flex: 4/5 bilaterally; Ext: 3+/5 R, 5/5 L Ankle: Left: generally 5/5; Right: DF 2+/5, PF 3+/5, IV 3/ 5, EV 2/5. Short Term Goal (STG) Improve R ankle: generally 3+/ 5, R Knee: generally 4+/5; R hip AB 4/5 (07/11/20: HEP R ankle EV, DF TB #1). (07/18/21: R ankle: PF/IV is 5 /5 & DF/EV is 3-/5; R knee: Flex 3+/5, Ext 5/5; Hip AB 3-/ 5), (08/22/21: R ankle: PF/IV is 5 /5 & DF/EV is 3/5; R knee: Flex 3+/5, Ext 5/5; Hip AB 3-/ 5), STG Duration 11/16/21 (08/22/21: Improved in R ankle DF & EV strength 1/ 2 grade.) Celery Stripper Goal (LTG) Increase R LE strength with pt able to lift self into bed at end of day with use of R leg. 07/11/20: GOAL MET: pt reports is able to lift RLE into bed now without UE support. (07/18/21: Able to boost self into bed 75% of the time.) LTG Duration 07/11/20 GOAL MET One Impairment HEP Impairment Pt goals received 05/30/21: Strengthen legs (R) & upper body; Hips feel like in alignment after sitting (R hip feels like it is forward). Short Term Goal (STG) Pt will be independent with a self care HEP of hip/knee/ ankle strengthening exercises. (05/30/21: HEP issued for hip and knee flex strengthening, STS without UE support) (06/08/21: Strengthening: Added HEP hip AB; 06/13/21: Added hip Ext. ABD 06/15/21: Added trunk rot) 06/22/21: added R ankle TB PF/ Eccentric DF, EV. (07/18/21: Verbal review of HEP of hip/knee/ankle ex's) STG Duration 06/23/21 (07/18/21: MET GOAL) Chcf Goal (LTG) Pt will be independent with a self care HEP of core strengthening exercises. (06/19/21: Core strengthening ex HEP issued) (07/20/21: Added HEP trunk flex) 08/17/21: R hip flexion/ eccentric lower seated, able get up from laying down positioning w/ hands. seated TB DF, EV. LE/ Core Step up/ downs w/ BHR, corner balance NBOS, stagger. 08/24/21: added side(reverse) & clamshell. Continue seated ankle TB #2, eccentric hip flexion, seated TB trunk flex/ ext/ rotate/ SB; stand: HS curl, side stepping, step up/ downs, STS etc. LTG Duration 12/18/21 (08/24/21: Clarified trunk/hip abd strengthening) Assessment Summary Assessment Pt presents with overall improved function. Pt improved in functional gait (TUG score by 2 point score reduction in impairment) from 40-60% to 20 -40% impaired. Pt was noted to be able to walk over multiple hurdles with just SPC support , no LOB or deviations, able to clear RLE with decrease circumduction with no cues and pt verbalized need to flex knee more so not to swing RLE. Pt has improved endurance overall, but would like to be able to states to walk the distance outside to be able to walk with a friend for safety , but her endurance is decreased. Recommend continue PT to work towards achieving the above stated goals with addition of dymnamic gait/balance for increased functional independence. The pt does have increased sway and has reported near falls when turning. She has in the past been treated for vestibular involvement; therefore it is recommended that the pt be seen for a vestibular check during her therapy to assist in determining appropriate ex' s for her rehab; therefore a new goal was added. Physical Therapy Plan Frequency and Duration Frequency of Treatment 2x/Week Plan of Care Start Date 09/19/21 Plan of Care End Date 12/18/21 Therapeutic Interventions Therapeutic Interventions Aquatic Therapy,Balance Training,Gait Training,Home Exercise Program,Manual Therapy,Neuromuscular Re- education,Patient/Caregiver Education,Self-Care/Home Management,Therapeutic Activities,Therapeutic Exercises Modalities Cold Pack/Ice Massage,Hot Packs Next Visit Focus/Plan Next Note Type Treatment Note Next Visit Plan Next tx: add strengthening for lifting of R leg over knee ex and knee flex in that position; add gait training, add balance training. POC: Progress endurance with UBE at end of therapy. Recheck hip strength (ext, AB, AD) & HEP, gastroc stretch. Strengthen R knee flex, R ankle DF & EV, improve ROM of R ankle EV. Continue: standing balance saran stepping, NBOS and on soft surfaces, gait w/ SPC. Continue Strengthening: R Hip ER/R IR; R Knee flex in range of 90-125 deg's, remind pt HEP: ankle DF along with improved mobility. POC: focus on neuro- reeducation for balance and improving stability/safety with gait (on soft/uneven surface), improving stamina & functional strength of RLE.
--- NOTE | 2021-09-21 11:20 | PT.OTN ---
Current Diagnoses Major depressive disorder, single episode, in full remission (09/21/21) Multiple sclerosis (09/21/21) Muscle weakness (generalized) (09/21/21) Age-related osteoporosis without current pathological fracture (09/21/21) Unspecified abnormalities of gait and mobility (09/21/21) Dizziness and giddiness (09/21/21) Physical Therapy Treatment Note PT-OP-A Visit Information Start: 05/23/21 18:50 Freq: Status: Active Protocol: Document 09/21/21 10:50 SP (Rec: 09/21/21 11:29 SP [id number]) Out-Patient Physical Therapy Visit Information Visit Information Visit Type Treatment Note Visit Start Time 10:33 Visit Stop Time 11:20 Total Visit Minutes 47 Visit Number 27 Number of FREIGHT SEPARATOR Visits 1 Evaluation Information Evaluation Date 05/25/21 Precautions Precautions Multiple Sclerosis, Osteoporosis, Dizziness, back pain. R handed. Has life alerts. PT-OP-B Current Condition Start: 05/23/21 18:50 Freq: Status: Active Protocol: Document 05/25/21 11:23 LRN (Rec: 05/25/21 12:06 LRN [id number]) Current Condition History of Current Condition Onset Date 17 yrs ago. Current Complaints Progressive weakness of RLE, since dx'd with MS; spasticity of lisbet LE R>L History of Current Condition Pt reports R foot drop and LE weakness due to MS with R foot dragging for past 10-15 yrs. Has had MS since ~1971, started with numb patches in the legs and clumsy. She has had an AFO for the R ankle foot for 5 yrs ago and wears it intermittently because she can only wear it with one pair of shoes. Pt did not wear the AFO today. States her primary care physician sent her to PT at her request due to having had PT several years ago with Rojelio Slaughter, PT. Neurologist, Natalya Stewart is planning on having her fit for another AFO on R LE that will help her to move the R LE (keep the foot straight and help to raise the foot). Pt reports she sometimes gets dizzy causing LOB without falls. Daughter calls her daily. Prior Treatments and Tests Sees chiropractor every other week. Future Testing and Treatments Planned Fit for RLE brace/AFO; company to contact her within 2-3 weeks. Treatment Goals Patient/Caregiver Goals Pt goal is to work on: *Balance, less LOB (no loss of balance), *Gait, legs not as tired at the end of the day, take longer walks with dog (walking to end of block) *Strengthen R LE to improve ability to lift self into bed at end of day, pushing withGait R leg. Prior Functional Status Baseline Function- Gait Gait with cane. Current Functional Impairments (Reported) Functional Limitations- ADL's Difficulty getting into bed at end of day. Functional Limitations- Mobility/Gait Walks 1/[address] to end of block to mailbox, then home Personal Factors Other Personal Factors That May Effect MS, Osteoporsis, dizziness. Therapy/Recovery PT-OP-C Subjective Start: 05/23/21 18:50 Freq: Status: Active Protocol: Document 09/21/21 10:50 SP (Rec: 09/21/21 11:29 SP [id number]) OP-PT Subjective Patient Comments Patient Comments Pt reports her beige shoes are rubbing on her medial 1st toe foot, think need to change her shoes for bigger toe box, don't need to get a bunion. Pt stated walked about 1/2 miles around neighborhood near [place] w/ SPC. PT-OP-D Balance Start: 05/23/21 18:50 Freq: Status: Active Protocol: Document 09/19/21 10:30 LRN (Rec: 09/19/21 12:25 LRN [id number]) Balance Tests Other Other Balance Tests Performed EO on solid surface: 60 secs EC on solid surface: 60 secs EO on soft surface (blue foam) : 60 secs EC on soft surface (blue foam) : 1 sec PT-OP-E Functional Tests Start: 05/23/21 18:50 Freq: Status: Active Protocol: Document 09/12/21 10:32 SP (Rec: 09/12/21 11:44 SP [id number]) Functional Tests Timed Up and Go (TUG) Score 16s, 13s,13s Comments Use of GB/SPC/R AFO TUG Impairment Rating 20 to <40% Impaired (Score 12- 13) PT-OP-G Mobility & Gait Start: 05/23/21 18:50 Freq: Status: Active Protocol: Document 08/22/21 10:38 LRN (Rec: 08/22/21 12:20 LRN [id number]) OP Gait Assessment Gait Gait Assistance Required: Independent Distance (Feet) 100 Assistive Devices Assistive Device Straight Cane Gait Deviations General Gait Pattern Decreased Stride Length, Lateral Trunk Lean Factors Limiting Gait Function Factors Limiting Gait Function Abnormal Tonal Influences, Decreased Strength,Poor Balance Comments Gait Comments R AFO improves ankle position, but noted R ankle IV's on stance phase. PT-OP-J Posture/Palpation/Skin Start: 05/23/21 18:50 Freq: Status: Active Protocol: Document 05/25/21 11:23 LRN (Rec: 05/25/21 12:06 LRN [id number]) Posture Evaluation Position Standing Head/C-Spine Posture Forward Head Shoulder Posture (L) Elevated Knee Posture (L) Excess Flexion Ankle/Foot Posture (R) Supinated,(R) Calcaneal Inversion Comments Posture Comments L leg long, holds knee flexed. When R knee is straight, the pelvis rotates right. Slight curve of back with apex on the left. PT-OP-K Range of Motion Start: 05/23/21 18:50 Freq: Status: Active Protocol: Document 07/18/21 12:51 LRN (Rec: 07/18/21 13:37 LRN [id number]) Ankle and Foot Goniometric Range of Motion Ankle and Foot Left Active Ankle/Foot ROM WFL Yes Testing Position Sitting Dorsiflexion with Knee Flexed 7 Inversion 30 Eversion 30 Right Active Ankle/Foot ROM WFL No Testing Position Sitting Inversion 35 Eversion 10 Comments Ankle DF with knee flexed is lacking 5 deg's to neutral. PT-OP-M Strength Start: 05/23/21 18:50 Freq: Status: Active Protocol: Document 08/22/21 10:38 LRN (Rec: 08/22/21 12:20 LRN [id number]) Hip Strength Hip Manual Muscle Testing Right Flexion (L2) 5 Normal External Rotation 3+ Fair+ Internal Rotation 3+ Fair+ Left Flexion (L2) 5 Normal Extension (S1) 5 Normal Abduction 5 Normal Adduction 5 Normal External Rotation 5 Normal Internal Rotation 4+ Good+ Knee Strength Knee Manual Muscle Testing Right Flexion (S2) 3+ Fair+ Extension (L3) 5 Normal Left Flexion (S2) 5 Normal Extension (L3) 5 Normal PT-OP-Q Treatments Start: 05/23/21 18:50 Freq: Status: Active Protocol: Document 09/21/21 10:50 SP (Rec: 09/21/21 11:29 SP [id number]) Cardio Equipment Upper Body Ergometer (UBE) Duration (Minutes) 4 RPM 105 Seat Position 6 Height 2.5 Other 256 cycles, cued no UT recruit Recumbent Elliptical (Biodex) Duration (Minutes) 6 Resistance Levl 4>3 Seat Position 8 Other 40-45 RPM, 530 total steps, LEs only Therapeutic Exercises Sitting Exercises R leg lifting over L knee Sitting Exercise Name Putting pants on motion Side right Resistance AROM Equipment Used seated in mesh chair Reps/Minutes 3 min Comments end of tx so only got Rheel just above [place] Standing Exercises marching Standing Exercise Name R hip flexion- added to HEP Side right Equipment Used contact //bars B Reps/Minutes can alternate 3x5 Comments cued tall posture knee height //bar R knee flex Standing Exercise Name HEP review- told continue Side right Resistance AROM- heel just above L ankle Equipment Used //bar contact for support strengthening Reps/Minutes 2x5 (last activity) Comments tiring, limited range- will measure next tx Neuro Re-Education Treatment Balance Activities hurdles Details L hip flexion concentric, L knee flex trailing LE Surface firm Equipment //bars, 6 hurdles Reps/Duration 10 ft x2 laps each direction Comments 5- 15%A cued L hip flexion stepping over hurdles, L knee flexion trailing over over saran forward, L knee/ hip flexion side stepping. cued for balance over stance LE before moving LE. Self-Care/Home Management Treatment Education Patient Education Body Mechanics,Home Exercise Program,Safety Other Education added stationary marching to HEP for standing hip flexion. PT-OP-T Assessment and Plan Start: 05/23/21 18:50 Freq: Status: Active Protocol: Document 09/21/21 10:50 SP (Rec: 09/21/21 11:29 SP [id number]) Physical Therapy Assessment Goals Decreased balance on unlevel surfaces. Impairment Decreased balance on unlevel surface. Impairment EC on soft surface standing feet together: 1 sec EC on solid surface standing feet together: 60+ secs Penitentiary Goal (LTG) Improve pt's balance on soft/ uneven surfaces with pt able to walk on part of [place] with cane/R AFO independently and with increased confidence in safety with gait and no loss of balance. LTG Duration 12/18/21 Seven Impairment Increased sway with turning generally 2x/week. Impairment Near fall with turning ~2x/ week. Short Term Goal (STG) Vestibular assessment for inner ear dysfunction causing dizziness on turning. STG Duration 11/16/21 Penitentiary Goal (LTG) Pt able to turn with confidence and abby near fall episodes to no more than 1-2/ month. LTG Duration 12/18/21 Six Impairment Decreased functional strength Impairment Pt has difficulty raising R leg to put leg in pants. 08/10/21: pt states still bending over and putting on pants. Suggested Cross RLE over L place pant on foot then eccentrically lower RLE into pant leg for added strengthening. 08/17/21: pt states can't miantain RLE ankle on LLE put pants on so crosses RLE over LLE and puts on. Is doing hip flexion lift ex. Depending upon what chair sit in can hold RLE ankle over LLE to put on pants and ease slow RLE to floor as pull pants up R leg. Vat Washer Goal (LTG) Pt will be able to lift R leg (in sitting) for ease of dressing (to put leg in pants) . 08/10/21: Progressing can lift RLE off ground about 5 inches intially then as reps progress not as high but only hold 2 sec before need to slow lower. 08/17/21: lift up 3 then slowly lower (AFO and shoe on, performed after 6MWT). (08/22/21: Pt able to lift R leg with assist of her UE's to place R knee over the L knee, but pt has difficulty keeping her R knee in place) 09/12/21: able to put RLE over L to put on pants and not have to hold as hard, staying better. LTG Duration 12/18/21 (09/12/21 progressing) Five Impairment Decreased stamina Short Term Goal (STG) Pt will be able to tolerate 10 minutes of upper body strengthening during a 38 miniute therapy session. 08/17/21: performed/ reviewed end tx didn't time. 08/22/21: UBE x 4' & 90 rpm. 09/12/21: scifit: 6 min UE/LEs 09/19/21: Biodex x 8' UE/LEs STG Duration 11/16/21 (09/29/21: Progressed) Vat Washer Goal (LTG) Pt will have greater confidence in her walking as demonstrated by improved TUG score of 14 or less. (07/18/21: TUG 22 secs w/AFO/ cane. 05/30/21: TUG 15 w/ AFO/cane). 09/12/21: GOAL MET: TUG 16s, 13s , 13s=20-40% impaired improved from 15 on 05/30/21. LTG Duration 11/20/21 (09/12/21: MET GOAL) Four Impairment Gait dysfunction Impairment R foot drop with occasional catching of toes. Short Term Goal (STG) Increase R hip/knee/ankle strength by 1/2 grade. (07/18/21: NOT MET for: R Hip ER/IR; R Knee flex) (08/22/21: R hip ER 3+/5, IR is 3/5; initially was ER 3/5, IR 3+/5. R knee flex same at 3+/5) STG Duration 11/16/21 (07/18/21: Goal mostly met) Penitentiary Goal (LTG) Legs not as tired at the end of the day with pt able to take her dog on a longer walk to end of block and back. 07/11/20: Pt only able to walk dog out to go to bathroom with cold bad weather, pre bad weather only able walk dog 3 drive[address] and back, uses SPC in [place]. PLOF reported during good weather days was able to walk approx total 1/4 mile. 08/22/21: Legs not too tired at the end of the day and walks dog 2-3x/day and can walk her dog to the end of the block and back. (09/19/21: 1x/week doing a long walk of 1+mile, usually early afternoon). LTG Duration 10/16/21 (08/22/21: MET GOAL) Three Impairment Decreased Balance Impairment Loss of balance without fall 2x/day in home. Vat Washer Goal (LTG) Improve balance with less reported LOB or no loss of balance with gait in home with more consistent use of AFO. 06/27/21: improved balanced gait, less R hip lateral ankle / hip deviations with new sneakers 9.5 (1 whole size larger). 07/11/20: pt reported had 2 falls (1 [address], 1 in kitchen) due to toe catching floor but not sure which foot caught the floor since last tx . Not sure why, maybe due to new sneakers 1 whole size bigger at 9.5 for AFO fit, vs 8.5. (07/18/21: No falls the past week, occasional LOB without fall) 08/17/21: had 1 fall since seen PT, not wearing shoes to go get shoes, sock got caught on nail of threshold last Sat/ Sun. Not LOB or fall since then. 08/22/21: No LOB since last reported on 08/17/21 09/12/21: Pt reports no LOB in home with AFO 90% of the time donned. 09/19/21: Thinks balance is being effected by the crystals in her ears. LOB day before yesterday with brief sec when turning around, but was able to catch self. LTG Duration 11/20/21 (09/12/21: MET GOAL) Two Impairment Decreased R LE strength Impairment Hip: Flexion 5/5 L, 4+/5 R; ER 3-/5 R, 2/5 L; IR 4+/5 bilaterally. Knee: Flex: 4/5 bilaterally; Ext: 3+/5 R, 5/5 L Ankle: Left: generally 5/5; Right: DF 2+/5, PF 3+/5, IV 3/ 5, EV 2/5. Short Term Goal (STG) Improve R ankle: generally 3+/ 5, R Knee: generally 4+/5; R hip AB 4/5 (07/11/20: HEP R ankle EV, DF TB #1). (07/18/21: R ankle: PF/IV is 5 /5 & DF/EV is 3-/5; R knee: Flex 3+/5, Ext 5/5; Hip AB 3-/ 5), (08/22/21: R ankle: PF/IV is 5 /5 & DF/EV is 3/5; R knee: Flex 3+/5, Ext 5/5; Hip AB 3-/ 5), STG Duration 11/16/21 (08/22/21: Improved in R ankle DF & EV strength 1/ 2 grade.) Vat Washer Goal (LTG) Increase R LE strength with pt able to lift self into bed at end of day with use of R leg. 07/11/20: GOAL MET: pt reports is able to lift RLE into bed now without UE support. (07/18/21: Able to boost self into bed 75% of the time.) LTG Duration 07/11/20 GOAL MET One Impairment HEP Impairment Pt goals received 05/30/21: Strengthen legs (R) & upper body; Hips feel like in alignment after sitting (R hip feels like it is forward). Short Term Goal (STG) Pt will be independent with a self care HEP of hip/knee/ ankle strengthening exercises. (05/30/21: HEP issued for hip and knee flex strengthening, STS without UE support) (06/08/21: Strengthening: Added HEP hip AB; 06/13/21: Added hip Ext. ABD 06/15/21: Added trunk rot) 06/22/21: added R ankle TB PF/ Eccentric DF, EV. (07/18/21: Verbal review of HEP of hip/knee/ankle ex's) STG Duration 06/23/21 (07/18/21: MET GOAL) Penitentiary Goal (LTG) Pt will be independent with a self care HEP of core strengthening exercises. (06/19/21: Core strengthening ex HEP issued) (07/20/21: Added HEP trunk flex) 08/17/21: R hip flexion/ eccentric lower seated, able get up from laying down positioning w/ hands. seated TB DF, EV. LE/ Core Step up/ downs w/ BHR, corner balance NBOS, stagger. 08/24/21: added side(reverse) & clamshell. Continue seated ankle TB #2, eccentric hip flexion, seated TB trunk flex/ ext/ rotate/ SB; stand: HS curl, side stepping, step up/ downs, STS etc. LTG Duration 12/18/21 (08/24/21: Clarified trunk/hip abd strengthening) Assessment Summary Assessment Pt improved R hip/ knee flexion during saran activity , decreased circumduction,cued tall posture. REviewed seated R hip/ knee flexion and standing knee flexion and added marching hip flexion to allow improved gait foot clearance when in community. Physical Therapy Plan Frequency and Duration Frequency of Treatment 2x/Week Plan of Care Start Date 09/19/21 Plan of Care End Date 12/18/21 Therapeutic Interventions Therapeutic Interventions Aquatic Therapy,Balance Training,Gait Training,Home Exercise Program,Manual Therapy,Neuromuscular Re- education,Patient/Caregiver Education,Self-Care/Home Management,Therapeutic Activities,Therapeutic Exercises Modalities Cold Pack/Ice Massage,Hot Packs Next Visit Focus/Plan Next Note Type Treatment Note Next Visit Plan Next tx: recheck R LE marching motion & knee flexion in standing. POC: Continue balance training and Progress endurance with UBE at end of therapy. Recheck hip strength (ext, AB, AD) & HEP, gastroc stretch. Strengthen R knee flex, R ankle DF & EV, improve ROM of R ankle EV. Continue: standing balance saran stepping, NBOS and on soft surfaces, gait w/ SPC. Continue Strengthening: R Hip ER/R IR; R Knee flex in range of 90-125 deg's, remind pt HEP: ankle DF along with improved mobility. POC: focus on neuro- reeducation for balance and improving stability/safety with gait (on soft/uneven surface), improving stamina & functional strength of RLE.
--- NOTE | 2021-09-26 11:15 | PT.OTN ---
Current Diagnoses Major depressive disorder, single episode, in full remission (09/26/21) Multiple sclerosis (09/26/21) Muscle weakness (generalized) (09/26/21) Age-related osteoporosis without current pathological fracture (09/26/21) Unspecified abnormalities of gait and mobility (09/26/21) Dizziness and giddiness (09/26/21) Physical Therapy Treatment Note PT-OP-A Visit Information Start: 05/23/21 18:50 Freq: Status: Active Protocol: Document 09/26/21 10:40 SP (Rec: 09/26/21 11:47 SP [id number]) Out-Patient Physical Therapy Visit Information Visit Information Visit Type Treatment Note Visit Start Time 10:37 Visit Stop Time 11:15 Total Visit Minutes 38 Visit Number 28 Number of INSTRUCTIONAL COACH Visits 2 Evaluation Information Evaluation Date 05/25/21 Precautions Precautions Multiple Sclerosis, Osteoporosis, Dizziness, back pain. R handed. Has life alerts. PT-OP-B Current Condition Start: 05/23/21 18:50 Freq: Status: Active Protocol: Document 05/25/21 11:23 LRN (Rec: 05/25/21 12:06 LRN [id number]) Current Condition History of Current Condition Onset Date 17 yrs ago. Current Complaints Progressive weakness of RLE, since dx'd with MS; spasticity of lisbet LE R>L History of Current Condition Pt reports R foot drop and LE weakness due to MS with R foot dragging for past 10-15 yrs. Has had MS since ~1971, started with numb patches in the legs and clumsy. She has had an AFO for the R ankle foot for 5 yrs ago and wears it intermittently because she can only wear it with one pair of shoes. Pt did not wear the AFO today. States her primary care physician sent her to PT at her request due to having had PT several years ago with Rojelio Slaughter, PT. Neurologist, Natalya Stewart is planning on having her fit for another AFO on R LE that will help her to move the R LE (keep the foot straight and help to raise the foot). Pt reports she sometimes gets dizzy causing LOB without falls. Daughter calls her daily. Prior Treatments and Tests Sees chiropractor every other week. Future Testing and Treatments Planned Fit for RLE brace/AFO; company to contact her within 2-3 weeks. Treatment Goals Patient/Caregiver Goals Pt goal is to work on: *Balance, less LOB (no loss of balance), *Gait, legs not as tired at the end of the day, take longer walks with dog (walking to end of block) *Strengthen R LE to improve ability to lift self into bed at end of day, pushing withGait R leg. Prior Functional Status Baseline Function- Gait Gait with cane. Current Functional Impairments (Reported) Functional Limitations- ADL's Difficulty getting into bed at end of day. Functional Limitations- Mobility/Gait Walks 1/[address] to end of block to mailbox, then home Personal Factors Other Personal Factors That May Effect MS, Osteoporsis, dizziness. Therapy/Recovery PT-OP-C Subjective Start: 05/23/21 18:50 Freq: Status: Active Protocol: Document 09/26/21 10:40 SP (Rec: 09/26/21 11:47 SP [id number]) OP-PT Subjective Patient Comments Patient Comments Pt states had a blister the past 3 days and had to wear house shoes due to tight sneakers caused a blister on L great toe. Wearing bigger toe box and feels better, 1st day wearing normal shoes again. Pt trying to be better about eating on time so not feeling weak and little dizzy, it's her reminder at times to be sure to eat. Pt states busy schedule withappts and helping others. Tries to be sure meets her needs. She today is helping set up a meal train for [employer] to help with meals post surgery. PT-OP-D Balance Start: 05/23/21 18:50 Freq: Status: Active Protocol: Document 09/19/21 10:30 LRN (Rec: 09/19/21 12:25 LRN [id number]) Balance Tests Other Other Balance Tests Performed EO on solid surface: 60 secs EC on solid surface: 60 secs EO on soft surface (blue foam) : 60 secs EC on soft surface (blue foam) : 1 sec PT-OP-E Functional Tests Start: 05/23/21 18:50 Freq: Status: Active Protocol: Document 09/12/21 10:32 SP (Rec: 09/12/21 11:44 SP [id number]) Functional Tests Timed Up and Go (TUG) Score 16s, 13s,13s Comments Use of GB/SPC/R AFO TUG Impairment Rating 20 to <40% Impaired (Score 12- 13) PT-OP-G Mobility & Gait Start: 05/23/21 18:50 Freq: Status: Active Protocol: Document 08/22/21 10:38 LRN (Rec: 08/22/21 12:20 LRN [id number]) OP Gait Assessment Gait Gait Assistance Required: Independent Distance (Feet) 100 Assistive Devices Assistive Device Straight Cane Gait Deviations General Gait Pattern Decreased Stride Length, Lateral Trunk Lean Factors Limiting Gait Function Factors Limiting Gait Function Abnormal Tonal Influences, Decreased Strength,Poor Balance Comments Gait Comments R AFO improves ankle position, but noted R ankle IV's on stance phase. PT-OP-J Posture/Palpation/Skin Start: 05/23/21 18:50 Freq: Status: Active Protocol: Document 05/25/21 11:23 LRN (Rec: 05/25/21 12:06 LRN [id number]) Posture Evaluation Position Standing Head/C-Spine Posture Forward Head Shoulder Posture (L) Elevated Knee Posture (L) Excess Flexion Ankle/Foot Posture (R) Supinated,(R) Calcaneal Inversion Comments Posture Comments L leg long, holds knee flexed. When R knee is straight, the pelvis rotates right. Slight curve of back with apex on the left. PT-OP-K Range of Motion Start: 05/23/21 18:50 Freq: Status: Active Protocol: Document 07/18/21 12:51 LRN (Rec: 07/18/21 13:37 LRN [id number]) Ankle and Foot Goniometric Range of Motion Ankle and Foot Left Active Ankle/Foot ROM WFL Yes Testing Position Sitting Dorsiflexion with Knee Flexed 7 Inversion 30 Eversion 30 Right Active Ankle/Foot ROM WFL No Testing Position Sitting Inversion 35 Eversion 10 Comments Ankle DF with knee flexed is lacking 5 deg's to neutral. PT-OP-M Strength Start: 05/23/21 18:50 Freq: Status: Active Protocol: Document 08/22/21 10:38 LRN (Rec: 08/22/21 12:20 LRN [id number]) Hip Strength Hip Manual Muscle Testing Right Flexion (L2) 5 Normal External Rotation 3+ Fair+ Internal Rotation 3+ Fair+ Left Flexion (L2) 5 Normal Extension (S1) 5 Normal Abduction 5 Normal Adduction 5 Normal External Rotation 5 Normal Internal Rotation 4+ Good+ Knee Strength Knee Manual Muscle Testing Right Flexion (S2) 3+ Fair+ Extension (L3) 5 Normal Left Flexion (S2) 5 Normal Extension (L3) 5 Normal PT-OP-Q Treatments Start: 05/23/21 18:50 Freq: Status: Active Protocol: Document 09/26/21 10:40 SP (Rec: 09/26/21 11:47 SP [id number]) Cardio Equipment Upper Body Ergometer (UBE) Duration (Minutes) 4 RPM 105 Seat Position 9>10 Height 2.5 forward only Other 259 cycles, cued no UT recruit Recumbent Stepper (Sci-Fit) Duration (Minutes) 6 Resistance 2.5 Seat Position 9 Other 50 RPM, 0.72 miles Gym Equipment Shuttle Balance balance with perturbations Details chains blue, red Therapeutic Exercises Sitting Exercises R leg lifting over L knee Sitting Exercise Name RLE heel slides up LLE morocho to knee (Putting pants on motion ) Side right Resistance AROM Equipment Used seated in mesh chair Reps/Minutes 8 reps before UE support Comments lifted to mid morocho first 4 reps, then lower Gait Training Gait Activity Uneven surface in//bars Description yoga mat, barrow foam Device Used //bars as needed (barrow foam cushion on/ off) Level of Assistance CGA Comments LOB x1, stepping over folded yoga mat and onto barrow foam, self //bars contact 1 UE, cued increase ARMANDO. gait uneven soft surfaces Description grass, curb, uneven gravel fairly level and incline/ decline Device Used SPC Level of Assistance CGA- 10%A Surface gravel, grass Distance/Duration approx 220 ft Treatment Focus balance recovery, L LE foot clearance Comments cued LLE increase knee flexion for foot clearance, quad/ hip abd fac, initial non verbal pt reached AUTOMATIC P[employer]OT MECH[employer]IC on R, provided Min A via gait belt for trunk support with improved stability and cues for directioning PT-OP-T Assessment and Plan Start: 05/23/21 18:50 Freq: Status: Active Protocol: Document 09/26/21 10:40 SP (Rec: 09/26/21 11:47 SP [id number]) Physical Therapy Assessment Goals Decreased balance on unlevel surfaces. Impairment Decreased balance on unlevel surface. Impairment EC on soft surface standing feet together: 1 sec EC on solid surface standing feet together: 60+ secs Retirement Goal (LTG) Improve pt's balance on soft/ uneven surfaces with pt able to walk on part of [place] with cane/R AFO independently and with increased confidence in safety with gait and no loss of balance. LTG Duration 12/18/21 Seven Impairment Increased sway with turning generally 2x/week. Impairment Near fall with turning ~2x/ week. Short Term Goal (STG) Vestibular assessment for inner ear dysfunction causing dizziness on turning. STG Duration 11/16/21 Ring Striker Goal (LTG) Pt able to turn with confidence and abby near fall episodes to no more than 1-2/ month. LTG Duration 12/18/21 Six Impairment Decreased functional strength Impairment Pt has difficulty raising R leg to put leg in pants. 08/10/21: pt states still bending over and putting on pants. Suggested Cross RLE over L place pant on foot then eccentrically lower RLE into pant leg for added strengthening. 08/17/21: pt states can't miantain RLE ankle on LLE put pants on so crosses RLE over LLE and puts on. Is doing hip flexion lift ex. Depending upon what chair sit in can hold RLE ankle over LLE to put on pants and ease slow RLE to floor as pull pants up R leg. Ring Striker Goal (LTG) Pt will be able to lift R leg (in sitting) for ease of dressing (to put leg in pants) . 08/10/21: Progressing can lift RLE off ground about 5 inches intially then as reps progress not as high but only hold 2 sec before need to slow lower. 08/17/21: lift up 3 then slowly lower (AFO and shoe on, performed after 6MWT). (08/22/21: Pt able to lift R leg with assist of her UE's to place R knee over the L knee, but pt has difficulty keeping her R knee in place) 09/12/21: able to put RLE over L to put on pants and not have to hold as hard, staying better. LTG Duration 12/18/21 (09/12/21 progressing) Five Impairment Decreased stamina Short Term Goal (STG) Pt will be able to tolerate 10 minutes of upper body strengthening during a 38 miniute therapy session. 08/17/21: performed/ reviewed end tx didn't time. 08/22/21: UBE x 4' & 90 rpm. 09/12/21: scifit: 6 min UE/LEs 09/19/21: Biodex x 8' UE/LEs STG Duration 11/16/21 (09/29/21: Progressed) Retirement Goal (LTG) Pt will have greater confidence in her walking as demonstrated by improved TUG score of 14 or less. (07/18/21: TUG 22 secs w/AFO/ cane. 05/30/21: TUG 15 w/ AFO/cane). 09/12/21: GOAL MET: TUG 16s, 13s , 13s=20-40% impaired improved from 15 on 05/30/21. LTG Duration 11/20/21 (09/12/21: MET GOAL) Four Impairment Gait dysfunction Impairment R foot drop with occasional catching of toes. Short Term Goal (STG) Increase R hip/knee/ankle strength by 1/2 grade. (07/18/21: NOT MET for: R Hip ER/IR; R Knee flex) (08/22/21: R hip ER 3+/5, IR is 3/5; initially was ER 3/5, IR 3+/5. R knee flex same at 3+/5) STG Duration 11/16/21 (07/18/21: Goal mostly met) Retirement Goal (LTG) Legs not as tired at the end of the day with pt able to take her dog on a longer walk to end of block and back. 07/11/20: Pt only able to walk dog out to go to bathroom with cold bad weather, pre bad weather only able walk dog 3 [address] and back, uses SPC in LUE. PLOF reported during good weather days was able to walk approx total 1/4 mile. 08/22/21: Legs not too tired at the end of the day and walks dog 2-3x/day and can walk her dog to the end of the block and back. (09/19/21: 1x/week doing a long walk of 1+mile, usually early afternoon). LTG Duration 10/16/21 (08/22/21: MET GOAL) Three Impairment Decreased Balance Impairment Loss of balance without fall 2x/day in home. Retirement Goal (LTG) Improve balance with less reported LOB or no loss of balance with gait in home with more consistent use of AFO. 06/27/21: improved balanced gait, less R hip lateral ankle / hip deviations with new sneakers 9.5 (1 whole size larger). 07/11/20: pt reported had 2 falls (1 [address] driveway, 1 in kitchen) due to toe catching floor but not sure which foot caught the floor since last tx . Not sure why, maybe due to new sneakers 1 whole size bigger at 9.5 for AFO fit, vs 8.5. (07/18/21: No falls the past week, occasional LOB without fall) 08/17/21: had 1 fall since seen PT, not wearing shoes to go get shoes, sock got caught on nail of threshold last Sat/ Sun. Not LOB or fall since then. 08/22/21: No LOB since last reported on 08/17/21 09/12/21: Pt reports no LOB in home with AFO 90% of the time donned. 09/19/21: Thinks balance is being effected by the crystals in her ears. LOB day before yesterday with brief sec when turning around, but was able to catch self. LTG Duration 11/20/21 (09/12/21: MET GOAL) Two Impairment Decreased R LE strength Impairment Hip: Flexion 5/5 L, 4+/5 R; ER 3-/5 R, 2/5 L; IR 4+/5 bilaterally. Knee: Flex: 4/5 bilaterally; Ext: 3+/5 R, 5/5 L Ankle: Left: generally 5/5; Right: DF 2+/5, PF 3+/5, IV 3/ 5, EV 2/5. Short Term Goal (STG) Improve R ankle: generally 3+/ 5, R Knee: generally 4+/5; R hip AB 4/5 (07/11/20: HEP R ankle EV, DF TB #1). (07/18/21: R ankle: PF/IV is 5 /5 & DF/EV is 3-/5; R knee: Flex 3+/5, Ext 5/5; Hip AB 3-/ 5), (08/22/21: R ankle: PF/IV is 5 /5 & DF/EV is 3/5; R knee: Flex 3+/5, Ext 5/5; Hip AB 3-/ 5), STG Duration 11/16/21 (08/22/21: Improved in R ankle DF & EV strength 1/ 2 grade.) Retirement Goal (LTG) Increase R LE strength with pt able to lift self into bed at end of day with use of R leg. 07/11/20: GOAL MET: pt reports is able to lift RLE into bed now without UE support. (07/18/21: Able to boost self into bed 75% of the time.) LTG Duration 07/11/20 GOAL MET One Impairment HEP Impairment Pt goals received 05/30/21: Strengthen legs (R) & upper body; Hips feel like in alignment after sitting (R hip feels like it is forward). Short Term Goal (STG) Pt will be independent with a self care HEP of hip/knee/ ankle strengthening exercises. (05/30/21: HEP issued for hip and knee flex strengthening, STS without UE support) (06/08/21: Strengthening: Added HEP hip AB; 06/13/21: Added hip Ext. ABD 06/15/21: Added trunk rot) 06/22/21: added R ankle TB PF/ Eccentric DF, EV. (07/18/21: Verbal review of HEP of hip/knee/ankle ex's) STG Duration 06/23/21 (07/18/21: MET GOAL) Ring Striker Goal (LTG) Pt will be independent with a self care HEP of core strengthening exercises. (06/19/21: Core strengthening ex HEP issued) (07/20/21: Added HEP trunk flex) 08/17/21: R hip flexion/ eccentric lower seated, able get up from laying down positioning w/ hands. seated TB DF, EV. LE/ Core Step up/ downs w/ BHR, corner balance NBOS, stagger. 08/24/21: added side(reverse) & clamshell. Continue seated ankle TB #2, eccentric hip flexion, seated TB trunk flex/ ext/ rotate/ SB; stand: HS curl, side stepping, step up/ downs, STS etc. LTG Duration 12/18/21 (08/24/21: Clarified trunk/hip abd strengthening) Assessment Summary Assessment Tx focused on aerobic activity for strengthening, RLE hip flexion AROM pre balance and gait. Pt close SBA during uneven surface gravel cued smaller stride for increased stability. Uneven incline grass required Min A for stability. Pt's demonstrates R knee/ankle lateral deviate on uneven surfaces and cued R knee hip flexion during swing through for foot clearance, consider making lateral R heel wedge to increase stability support for next tx. Verbally reviewed standing HEP continue : hip flexion marching RLE, seated hip flexion heel slide up LLE and step ups for home increase patterning advancement during gait safety , verbalized will be sure to give more emphasis. Pt did have 1 LOB to L CGA and self contact wall to recover when switching sweatshirt from LUE to RUE holding cane while stepping. INSTRUCTIONAL COACH educated safety stationary stance to prevent falls, use of SPC contact support during gait, verbalized agreement. Physical Therapy Plan Frequency and Duration Frequency of Treatment 2x/Week Plan of Care Start Date 09/19/21 Plan of Care End Date 12/18/21 Therapeutic Interventions Therapeutic Interventions Aquatic Therapy,Balance Training,Gait Training,Home Exercise Program,Manual Therapy,Neuromuscular Re- education,Patient/Caregiver Education,Self-Care/Home Management,Therapeutic Activities,Therapeutic Exercises Modalities Cold Pack/Ice Massage,Hot Packs Next Visit Focus/Plan Next Note Type Treatment Note Next Visit Plan Next tx: lateral heel wedge on RLE top AFO. Recheck R LE marching motion & knee flexion in standing. POC: Continue balance training and uneven surfaces gait and Progress endurance with UBE at end of therapy. Recheck hip strength (ext, AB, AD) & HEP, gastroc stretch. Strengthen R knee flex, R ankle DF & EV, improve ROM of R ankle EV. Continue: standing balance saran stepping, NBOS and on soft surfaces, gait w/ SPC. Continue Strengthening: R Hip ER/R IR; R Knee flex in range of 90-125 deg's, remind pt HEP: ankle DF along with improved mobility. POC: focus on neuro- reeducation for balance and improving stability/safety with gait (on soft/uneven surface), improving stamina & functional strength of RLE.
--- NOTE | 2021-09-28 11:17 | PT.OTN ---
Current Diagnoses Major depressive disorder, single episode, in full remission (09/28/21) Multiple sclerosis (09/28/21) Muscle weakness (generalized) (09/28/21) Age-related osteoporosis without current pathological fracture (09/28/21) Unspecified abnormalities of gait and mobility (09/28/21) Dizziness and giddiness (09/28/21) Physical Therapy Treatment Note PT-OP-A Visit Information Start: 05/23/21 18:50 Freq: Status: Active Protocol: Document 09/28/21 10:32 SP (Rec: 09/28/21 11:44 SP [id number]) Out-Patient Physical Therapy Visit Information Visit Information Visit Type Treatment Note Visit Note *30th visit, PN next visit. Visit Start Time 10:32 Visit Stop Time 11:17 Total Visit Minutes 45 Visit Number 29 Number of BULK SAUSAGE CASING TIER OFF Visits 3 Evaluation Information Evaluation Date 05/25/21 Precautions Precautions Multiple Sclerosis, Osteoporosis, Dizziness, back pain. R handed. Has life alerts. PT-OP-B Current Condition Start: 05/23/21 18:50 Freq: Status: Active Protocol: Document 05/25/21 11:23 LRN (Rec: 05/25/21 12:06 LRN [id number]) Current Condition History of Current Condition Onset Date 17 yrs ago. Current Complaints Progressive weakness of RLE, since dx'd with MS; spasticity of lisbet LE R>L History of Current Condition Pt reports R foot drop and LE weakness due to MS with R foot dragging for past 10-15 yrs. Has had MS since ~1971, started with numb patches in the legs and clumsy. She has had an AFO for the R ankle foot for 5 yrs ago and wears it intermittently because she can only wear it with one pair of shoes. Pt did not wear the AFO today. States her primary care physician sent her to PT at her request due to having had PT several years ago with Rojelio Slaughter, PT. Neurologist, Natalya Stewart is planning on having her fit for another AFO on R LE that will help her to move the R LE (keep the foot straight and help to raise the foot). Pt reports she sometimes gets dizzy causing LOB without falls. Daughter calls her daily. Prior Treatments and Tests Sees chiropractor every other week. Future Testing and Treatments Planned Fit for RLE brace/AFO; company to contact her within 2-3 weeks. Treatment Goals Patient/Caregiver Goals Pt goal is to work on: *Balance, less LOB (no loss of balance), *Gait, legs not as tired at the end of the day, take longer walks with dog (walking to end of block) *Strengthen R LE to improve ability to lift self into bed at end of day, pushing withGait R leg. Prior Functional Status Baseline Function- Gait Gait with cane. Current Functional Impairments (Reported) Functional Limitations- ADL's Difficulty getting into bed at end of day. Functional Limitations- Mobility/Gait Walks 1/[address] to end of block to mailbox, then home Personal Factors Other Personal Factors That May Effect MS, Osteoporsis, dizziness. Therapy/Recovery PT-OP-C Subjective Start: 05/23/21 18:50 Freq: Status: Active Protocol: Document 09/28/21 10:32 SP (Rec: 09/28/21 11:44 SP [id number]) OP-PT Subjective Patient Comments Patient Comments Pt took off AFO and went to bathroom upon arrival. PT-OP-D Balance Start: 05/23/21 18:50 Freq: Status: Active Protocol: Document 09/19/21 10:30 LRN (Rec: 09/19/21 12:25 LRN [id number]) Balance Tests Other Other Balance Tests Performed EO on solid surface: 60 secs EC on solid surface: 60 secs EO on soft surface (blue foam) : 60 secs EC on soft surface (blue foam) : 1 sec PT-OP-E Functional Tests Start: 05/23/21 18:50 Freq: Status: Active Protocol: Document 09/12/21 10:32 SP (Rec: 09/12/21 11:44 SP [id number]) Functional Tests Timed Up and Go (TUG) Score 16s, 13s,13s Comments Use of GB/SPC/R AFO TUG Impairment Rating 20 to <40% Impaired (Score 12- 13) PT-OP-G Mobility & Gait Start: 05/23/21 18:50 Freq: Status: Active Protocol: Document 08/22/21 10:38 LRN (Rec: 08/22/21 12:20 LRN [id number]) OP Gait Assessment Gait Gait Assistance Required: Independent Distance (Feet) 100 Assistive Devices Assistive Device Straight Cane Gait Deviations General Gait Pattern Decreased Stride Length, Lateral Trunk Lean Factors Limiting Gait Function Factors Limiting Gait Function Abnormal Tonal Influences, Decreased Strength,Poor Balance Comments Gait Comments R AFO improves ankle position, but noted R ankle IV's on stance phase. PT-OP-J Posture/Palpation/Skin Start: 05/23/21 18:50 Freq: Status: Active Protocol: Document 05/25/21 11:23 LRN (Rec: 05/25/21 12:06 LRN [id number]) Posture Evaluation Position Standing Head/C-Spine Posture Forward Head Shoulder Posture (L) Elevated Knee Posture (L) Excess Flexion Ankle/Foot Posture (R) Supinated,(R) Calcaneal Inversion Comments Posture Comments L leg long, holds knee flexed. When R knee is straight, the pelvis rotates right. Slight curve of back with apex on the left. PT-OP-K Range of Motion Start: 05/23/21 18:50 Freq: Status: Active Protocol: Document 07/18/21 12:51 LRN (Rec: 07/18/21 13:37 LRN [id number]) Ankle and Foot Goniometric Range of Motion Ankle and Foot Left Active Ankle/Foot ROM WFL Yes Testing Position Sitting Dorsiflexion with Knee Flexed 7 Inversion 30 Eversion 30 Right Active Ankle/Foot ROM WFL No Testing Position Sitting Inversion 35 Eversion 10 Comments Ankle DF with knee flexed is lacking 5 deg's to neutral. PT-OP-M Strength Start: 05/23/21 18:50 Freq: Status: Active Protocol: Document 08/22/21 10:38 LRN (Rec: 08/22/21 12:20 LRN [id number]) Hip Strength Hip Manual Muscle Testing Right Flexion (L2) 5 Normal External Rotation 3+ Fair+ Internal Rotation 3+ Fair+ Left Flexion (L2) 5 Normal Extension (S1) 5 Normal Abduction 5 Normal Adduction 5 Normal External Rotation 5 Normal Internal Rotation 4+ Good+ Knee Strength Knee Manual Muscle Testing Right Flexion (S2) 3+ Fair+ Extension (L3) 5 Normal Left Flexion (S2) 5 Normal Extension (L3) 5 Normal PT-OP-Q Treatments Start: 05/23/21 18:50 Freq: Status: Active Protocol: Document 09/28/21 10:32 SP (Rec: 09/28/21 11:44 SP [id number]) Cardio Equipment Upper Body Ergometer (UBE) Duration (Minutes) 4 RPM 105 Seat Position 11 Height 2.5 forward only Other 264 cycles, cued head back neutral/no UT recruit Recumbent Stepper (Sci-Fit) Duration (Minutes) 8 Resistance 2.5 Seat Position 9 Other 52 RPM, ? miles- LEs only Therapeutic Exercises Sitting Exercises R leg lifting over L knee Sitting Exercise Name RLE heel slides up LLE morocho to knee (Putting pants on motion ) Side right Resistance AROM Equipment Used seated in mesh chair Reps/Minutes 2 x10 reps Comments lifted to slight above mid morocho 2x 10 reps with 20 sec rest Gait Training Gait Activity Gait with SPC/R AFO Description added lateral wedge top AFO for ankle stability Device Used SPC, GB, RLE AFO plus lat wedge Level of Assistance CGA Surface Level Distance/Duration 170 ft x3 laps Treatment Focus stability, balance recovery Comments occasional cue for RLE knee/ hip flexion to allow R foot clearance. Pt reported wanted to change shoe lacing to assist heel support in shoe knowing higher lift, improved. Noted improved ankle stability neutral positioning during R heel strike>midstance . Neuro Re-Education Treatment Balance Activities Standing SB Details resisted SB, rotation Surface firm Equipment TB #2 Reps/Duration 3x10 each side Comments close SBA, little sways forward and backward but self correct centering, cued wider ARMANDO stance. Pt states does in sitting at home for safety. Educated in PT only in standing, pt agreed. Orthotic/Prosthetic Management and Training Treatment Details of Training built and instruction placement of lateral R heel wedge 1/8+ [address] top AFO/ under sneaker insole, increased ankle stability more neutral ankle positioning noted during gait. PT-OP-T Assessment and Plan Start: 05/23/21 18:50 Freq: Status: Active Protocol: Document 09/28/21 10:32 SP (Rec: 09/28/21 11:44 SP [id number]) Physical Therapy Assessment Goals Decreased balance on unlevel surfaces. Impairment Decreased balance on unlevel surface. Impairment EC on soft surface standing feet together: 1 sec EC on solid surface standing feet together: 60+ secs Torsion Spring Coiling Machine Setter Goal (LTG) Improve pt's balance on soft/ uneven surfaces with pt able to walk on part of [employer] [place] with cane/R AFO independently and with increased confidence in safety with gait and no loss of balance. 09/26/21: see 09/26 note with uneven surface gait w/SPC. LTG Duration 12/18/21 (09/26/21: progressing ) Seven Impairment Increased sway with turning generally 2x/week. Impairment Near fall with turning ~2x/ week. Short Term Goal (STG) Vestibular assessment for inner ear dysfunction causing dizziness on turning. 09/28/21: pt has appt on 11/07/21 with Vestibular PT. STG Duration 11/16/21 (VPT appt 11/07/21) Longterm Goal (LTG) Pt able to turn with confidence and abby near fall episodes to no more than 1-2/ month. LTG Duration 12/18/21 Six Impairment Decreased functional strength Impairment Pt has difficulty raising R leg to put leg in pants. 08/10/21: pt states still bending over and putting on pants. Suggested Cross RLE over L place pant on foot then eccentrically lower RLE into pant leg for added strengthening. 08/17/21: pt states can't miantain RLE ankle on LLE put pants on so crosses RLE over LLE and puts on. Is doing hip flexion lift ex. Depending upon what chair sit in can hold RLE ankle over LLE to put on pants and ease slow RLE to floor as pull pants up R leg. Longterm Goal (LTG) Pt will be able to lift R leg (in sitting) for ease of dressing (to put leg in pants) . 08/10/21: Progressing can lift RLE off ground about 5 inches intially then as reps progress not as high but only hold 2 sec before need to slow lower. 08/17/21: lift up 3 then slowly lower (AFO and shoe on, performed after 6MWT). (08/22/21: Pt able to lift R leg with assist of her UE's to place R knee over the L knee, but pt has difficulty keeping her R knee in place) 09/12/21: able to put RLE over L to put on pants and not have to hold as hard, staying better. 09/28/21: progressing: pt ableto complete R hip flexion/ ER AROM foot little higher than mid morocho 2x10 reps today wtihout UE assist. LTG Duration 12/18/21 (09/28/21 progressing ) Five Impairment Decreased stamina Short Term Goal (STG) Pt will be able to tolerate 10 minutes of upper body strengthening during a 38 miniute therapy session. 08/17/21: performed/ reviewed end tx didn't time. 08/22/21: UBE x 4' & 90 rpm. 09/12/21: scifit: 6 min UE/LEs 09/19/21: Biodex x 8' UE/LEs 09/28/21: scifit x8 min LEs only 2.5 resistance, UBE 4 min at 105 resistance. STG Duration 11/16/21 (09/28/21: Progressed) Torsion Spring Coiling Machine Setter Goal (LTG) Pt will have greater confidence in her walking as demonstrated by improved TUG score of 14 or less. (07/18/21: TUG 22 secs w/AFO/ cane. 05/30/21: TUG 15 w/ AFO/cane). 09/12/21: GOAL MET: TUG 16s, 13s , 13s=20-40% impaired improved from 15 on 05/30/21. LTG Duration 11/20/21 (09/12/21: MET GOAL) Four Impairment Gait dysfunction Impairment R foot drop with occasional catching of toes. Short Term Goal (STG) Increase R hip/knee/ankle strength by 1/2 grade. (07/18/21: NOT MET for: R Hip ER/IR; R Knee flex) (08/22/21: R hip ER 3+/5, IR is 3/5; initially was ER 3/5, IR 3+/5. R knee flex same at 3+/5) STG Duration 11/16/21 (07/18/21: Goal mostly met) Torsion Spring Coiling Machine Setter Goal (LTG) Legs not as tired at the end of the day with pt able to take her dog on a longer walk to end of block and back. 07/11/20: Pt only able to walk dog out to go to bathroom with cold bad weather, pre bad weather only able walk dog 3 [address] and back, uses SPC in LUE. PLOF reported during good weather days was able to walk approx total 1/4 mile. 08/22/21: Legs not too tired at the end of the day and walks dog 2-3x/day and can walk her dog to the end of the block and back. (09/19/21: 1x/week doing a long walk of 1+mile, usually early afternoon). LTG Duration 10/16/21 (08/22/21: MET GOAL) Three Impairment Decreased Balance Impairment Loss of balance without fall 2x/day in home. Torsion Spring Coiling Machine Setter Goal (LTG) Improve balance with less reported LOB or no loss of balance with gait in home with more consistent use of AFO. 06/27/21: improved balanced gait, less R hip lateral ankle / hip deviations with new sneakers 9.5 (1 whole size larger). 07/11/20: pt reported had 2 falls (1 [address], 1 in kitchen) due to toe catching floor but not sure which foot caught the floor since last tx . Not sure why, maybe due to new sneakers 1 whole size bigger at 9.5 for AFO fit, vs 8.5. (07/18/21: No falls the past week, occasional LOB without fall) 08/17/21: had 1 fall since seen PT, not wearing shoes to go get shoes, sock got caught on nail of threshold last Sat/ Sun. Not LOB or fall since then. 08/22/21: No LOB since last reported on 08/17/21 09/12/21: Pt reports no LOB in home with AFO 90% of the time donned. 09/19/21: Thinks balance is being effected by the crystals in her ears. LOB day before yesterday with brief sec when turning around, but was able to catch self. LTG Duration 11/20/21 (09/12/21: MET GOAL) Two Impairment Decreased R LE strength Impairment Hip: Flexion 5/5 L, 4+/5 R; ER 3-/5 R, 2/5 L; IR 4+/5 bilaterally. Knee: Flex: 4/5 bilaterally; Ext: 3+/5 R, 5/5 L Ankle: Left: generally 5/5; Right: DF 2+/5, PF 3+/5, IV 3/ 5, EV 2/5. Short Term Goal (STG) Improve R ankle: generally 3+/ 5, R Knee: generally 4+/5; R hip AB 4/5 (07/11/20: HEP R ankle EV, DF TB #1). (07/18/21: R ankle: PF/IV is 5 /5 & DF/EV is 3-/5; R knee: Flex 3+/5, Ext 5/5; Hip AB 3-/ 5), (08/22/21: R ankle: PF/IV is 5 /5 & DF/EV is 3/5; R knee: Flex 3+/5, Ext 5/5; Hip AB 3-/ 5), STG Duration 11/16/21 (08/22/21: Improved in R ankle DF & EV strength 1/ 2 grade.) Torsion Spring Coiling Machine Setter Goal (LTG) Increase R LE strength with pt able to lift self into bed at end of day with use of R leg. 07/11/20: GOAL MET: pt reports is able to lift RLE into bed now without UE support. (07/18/21: Able to boost self into bed 75% of the time.) LTG Duration 07/11/20 GOAL MET One Impairment HEP Impairment Pt goals received 05/30/21: Strengthen legs (R) & upper body; Hips feel like in alignment after sitting (R hip feels like it is forward). Short Term Goal (STG) Pt will be independent with a self care HEP of hip/knee/ ankle strengthening exercises. (05/30/21: HEP issued for hip and knee flex strengthening, STS without UE support) (06/08/21: Strengthening: Added HEP hip AB; 06/13/21: Added hip Ext. ABD 06/15/21: Added trunk rot) 06/22/21: added R ankle TB PF/ Eccentric DF, EV. (07/18/21: Verbal review of HEP of hip/knee/ankle ex's) STG Duration 06/23/21 (07/18/21: MET GOAL) Torsion Spring Coiling Machine Setter Goal (LTG) Pt will be independent with a self care HEP of core strengthening exercises. (06/19/21: Core strengthening ex HEP issued) (07/20/21: Added HEP trunk flex) 08/17/21: R hip flexion/ eccentric lower seated, able get up from laying down positioning w/ hands. seated TB DF, EV. LE/ Core Step up/ downs w/ BHR, corner balance NBOS, stagger. 08/24/21: added side(reverse) & clamshell. Continue seated ankle TB #2, eccentric hip flexion, seated TB trunk flex/ ext/ rotate/ SB; stand: HS curl, side stepping, step up/ downs, STS etc. 09/28/21: pt performing seated resisted trunk rotation/SB, standing march, hip flex/ ER AROM, seated HS curl, side stepping, up/ down step w/ handle support. LTG Duration 12/18/21 (09/28/21: Clarified trunk/hip abd strengthening) Assessment Summary Assessment Tx focused on aerobic activity for strengthening and provided lateral heel wedge for R foot, improved ankle stability more neutral with good feedback feels more stable, laced up sneaker higher to support heel in shoe , was sliding out little initial placement lift. Continues require cues for R foot clearance and awareness R arm swing during gait. Physical Therapy Plan Frequency and Duration Frequency of Treatment 2x/Week Plan of Care Start Date 09/19/21 Plan of Care End Date 12/18/21 Therapeutic Interventions Therapeutic Interventions Aquatic Therapy,Balance Training,Gait Training,Home Exercise Program,Manual Therapy,Neuromuscular Re- education,Patient/Caregiver Education,Self-Care/Home Management,Therapeutic Activities,Therapeutic Exercises Modalities Cold Pack/Ice Massage,Hot Packs Next Visit Focus/Plan Next Note Type Treatment Note Next Visit Plan *30th next visit, PN required. Check how walking w/ lateral heel wedge on RLE top AFO. Recheck R LE marching motion & knee flexion seated HEP and standing pre gait for foot clearance. POC: Continue balance training and uneven surfaces gait and Progress endurance with UBE at end of therapy. Recheck hip strength (ext, AB, AD) & HEP, gastroc stretch. Strengthen R knee flex, R ankle DF & EV, improve ROM of R ankle EV. Continue: standing balance saran stepping, NBOS and on soft surfaces, gait w/ SPC. Continue Strengthening: R Hip ER/R IR; R Knee flex in range of 90-125 deg's, remind pt HEP: ankle DF along with improved mobility. POC: focus on neuro- reeducation for balance and improving stability/safety with gait (on soft/uneven surface), improving stamina & functional strength of RLE.
--- NOTE | 2021-10-03 15:56 | PT.OTN ---
Current Diagnoses Major depressive disorder, single episode, in full remission (10/03/21) Multiple sclerosis (10/03/21) Muscle weakness (generalized) (10/03/21) Age-related osteoporosis without current pathological fracture (10/03/21) Unspecified abnormalities of gait and mobility (10/03/21) Dizziness and giddiness (10/03/21) Physical Therapy Treatment Note PT-OP-A Visit Information Start: 05/23/21 18:50 Freq: Status: Active Protocol: Document 10/03/21 10:43 LRN (Rec: 10/03/21 11:26 LRN [id number]) Out-Patient Physical Therapy Visit Information Visit Information Visit Type Treatment Note Visit Start Time 10:43 Visit Stop Time 11:21 Total Visit Minutes 38 Visit Number 30 Evaluation Information Evaluation Date 05/25/21 Precautions Precautions Multiple Sclerosis, Osteoporosis, Dizziness, back pain. R handed. Has life alerts. PT-OP-B Current Condition Start: 05/23/21 18:50 Freq: Status: Active Protocol: Document 05/25/21 11:23 LRN (Rec: 05/25/21 12:06 LRN [id number]) Current Condition History of Current Condition Onset Date 17 yrs ago. Current Complaints Progressive weakness of RLE, since dx'd with MS; spasticity of lisbet LE R>L History of Current Condition Pt reports R foot drop and LE weakness due to MS with R foot dragging for past 10-15 yrs. Has had MS since ~1971, started with numb patches in the legs and clumsy. She has had an AFO for the R ankle foot for 5 yrs ago and wears it intermittently because she can only wear it with one pair of shoes. Pt did not wear the AFO today. States her primary care physician sent her to PT at her request due to having had PT several years ago with Rojelio Slaughter, PT. Neurologist, Natalya Stewart is planning on having her fit for another AFO on R LE that will help her to move the R LE (keep the foot straight and help to raise the foot). Pt reports she sometimes gets dizzy causing LOB without falls. Daughter calls her daily. Prior Treatments and Tests Sees chiropractor every other week. Future Testing and Treatments Planned Fit for RLE brace/AFO; company to contact her within 2-3 weeks. Treatment Goals Patient/Caregiver Goals Pt goal is to work on: *Balance, less LOB (no loss of balance), *Gait, legs not as tired at the end of the day, take longer walks with dog (walking to end of block) *Strengthen R LE to improve ability to lift self into bed at end of day, pushing withGait R leg. Prior Functional Status Baseline Function- Gait Gait with cane. Current Functional Impairments (Reported) Functional Limitations- ADL's Difficulty getting into bed at end of day. Functional Limitations- Mobility/Gait Walks 1/[address] to end of block to mailbox, then home Personal Factors Other Personal Factors That May Effect MS, Osteoporsis, dizziness. Therapy/Recovery PT-OP-C Subjective Start: 05/23/21 18:50 Freq: Status: Active Protocol: Document 10/03/21 10:43 LRN (Rec: 10/03/21 11:26 LRN [id number]) OP-PT Subjective Patient Comments Patient Comments Plans to be gone October 15 - November 06. Has appt 09/07/21. PT-OP-D Balance Start: 05/23/21 18:50 Freq: Status: Active Protocol: Document 09/19/21 10:30 LRN (Rec: 09/19/21 12:25 LRN [id number]) Balance Tests Other Other Balance Tests Performed EO on solid surface: 60 secs EC on solid surface: 60 secs EO on soft surface (blue foam) : 60 secs EC on soft surface (blue foam) : 1 sec PT-OP-E Functional Tests Start: 05/23/21 18:50 Freq: Status: Active Protocol: Document 09/12/21 10:32 SP (Rec: 09/12/21 11:44 SP [id number]) Functional Tests Timed Up and Go (TUG) Score 16s, 13s,13s Comments Use of GB/SPC/R AFO TUG Impairment Rating 20 to <40% Impaired (Score 12- 13) PT-OP-G Mobility & Gait Start: 05/23/21 18:50 Freq: Status: Active Protocol: Document 08/22/21 10:38 LRN (Rec: 08/22/21 12:20 LRN [id number]) OP Gait Assessment Gait Gait Assistance Required: Independent Distance (Feet) 100 Assistive Devices Assistive Device Straight Cane Gait Deviations General Gait Pattern Decreased Stride Length, Lateral Trunk Lean Factors Limiting Gait Function Factors Limiting Gait Function Abnormal Tonal Influences, Decreased Strength,Poor Balance Comments Gait Comments R AFO improves ankle position, but noted R ankle IV's on stance phase. PT-OP-J Posture/Palpation/Skin Start: 05/23/21 18:50 Freq: Status: Active Protocol: Document 05/25/21 11:23 LRN (Rec: 05/25/21 12:06 LRN [id number]) Posture Evaluation Position Standing Head/C-Spine Posture Forward Head Shoulder Posture (L) Elevated Knee Posture (L) Excess Flexion Ankle/Foot Posture (R) Supinated,(R) Calcaneal Inversion Comments Posture Comments L leg long, holds knee flexed. When R knee is straight, the pelvis rotates right. Slight curve of back with apex on the left. PT-OP-K Range of Motion Start: 05/23/21 18:50 Freq: Status: Active Protocol: Document 07/18/21 12:51 LRN (Rec: 07/18/21 13:37 LRN [id number]) Ankle and Foot Goniometric Range of Motion Ankle and Foot Left Active Ankle/Foot ROM WFL Yes Testing Position Sitting Dorsiflexion with Knee Flexed 7 Inversion 30 Eversion 30 Right Active Ankle/Foot ROM WFL No Testing Position Sitting Inversion 35 Eversion 10 Comments Ankle DF with knee flexed is lacking 5 deg's to neutral. PT-OP-M Strength Start: 05/23/21 18:50 Freq: Status: Active Protocol: Document 08/22/21 10:38 LRN (Rec: 08/22/21 12:20 LRN [id number]) Hip Strength Hip Manual Muscle Testing Right Flexion (L2) 5 Normal External Rotation 3+ Fair+ Internal Rotation 3+ Fair+ Left Flexion (L2) 5 Normal Extension (S1) 5 Normal Abduction 5 Normal Adduction 5 Normal External Rotation 5 Normal Internal Rotation 4+ Good+ Knee Strength Knee Manual Muscle Testing Right Flexion (S2) 3+ Fair+ Extension (L3) 5 Normal Left Flexion (S2) 5 Normal Extension (L3) 5 Normal PT-OP-Q Treatments Start: 05/23/21 18:50 Freq: Status: Active Protocol: Document 10/03/21 10:43 LRN (Rec: 10/03/21 11:26 LRN [id number]) Gait Training Gait Activity Gait with SPC/R AFO Description moved lateral wedge under AFO for ankle stability Device Used SPC, GB, RLE AFO plus lat wedge Level of Assistance CGA Surface Level Distance/Duration 170 ft x3 laps Treatment Focus stability, balance recovery Comments occasional cue for RLE knee/ hip flexion to allow R foot clearance. Pt reported wanted to change shoe lacing to assist heel support in shoe knowing higher lift, improved. Noted improved ankle stability neutral positioning during R heel strike>midstance . Neuro Re-Education Treatment Balance Activities Standing EC Details Feet apart, feet together, staggered, tandem Surface level, firm Equipment bar, GB Reps/Duration 10' Comments close SBA and CGA with gait belt, sways side to side especially when R foot is behing in staggered and tandem stance. Self correct centering with feet together and apart, railing needed for staggered and tandem. Standing SB Details EO: SB (Small Base) standing, staggered stance, tandem Surface firm Equipment railing Reps/Duration 10' Comments SBA and CGA with GB for tandem stance. Less balance ability with RLE behind. Side stepping Details Sidestepping with & w/o railing Surface Level, firm Equipment bar Reps/Duration 2x up/down railing Comments cuing to keep hips forward, R knee bent. pt moves slowly and purposely. PT-OP-T Assessment and Plan Start: 05/23/21 18:50 Freq: Status: Active Protocol: Document 10/03/21 10:43 LRN (Rec: 10/03/21 11:26 LRN [id number]) Physical Therapy Assessment Goals Decreased balance on unlevel surfaces. Impairment Decreased balance on unlevel surface. Impairment EC on soft surface standing feet together: 1 sec EC on solid surface standing feet together: 60+ secs Shelter Goal (LTG) Improve pt's balance on soft/ uneven surfaces with pt able to walk on part of [place] with cane/R AFO independently and with increased confidence in safety with gait and no loss of balance. 09/26/21: see 09/26 note with uneven surface gait w/SPC. LTG Duration 12/18/21 (09/26/21: progressing ) Seven Impairment Increased sway with turning generally 2x/week. Impairment Near fall with turning ~2x/ week. Short Term Goal (STG) Vestibular assessment for inner ear dysfunction causing dizziness on turning. 09/28/21: pt has appt on 11/07/21 with Vestibular PT. STG Duration 11/16/21 (VPT appt 11/07/21) Shelter Goal (LTG) Pt able to turn with confidence and abby near fall episodes to no more than 1-2/ month. LTG Duration 12/18/21 Six Impairment Decreased functional strength Impairment Pt has difficulty raising R leg to put leg in pants. 08/10/21: pt states still bending over and putting on pants. Suggested Cross RLE over L place pant on foot then eccentrically lower RLE into pant leg for added strengthening. 08/17/21: pt states can't miantain RLE ankle on LLE put pants on so crosses RLE over LLE and puts on. Is doing hip flexion lift ex. Depending upon what chair sit in can hold RLE ankle over LLE to put on pants and ease slow RLE to floor as pull pants up R leg. Shelter Goal (LTG) Pt will be able to lift R leg (in sitting) for ease of dressing (to put leg in pants) . 08/10/21: Progressing can lift RLE off ground about 5 inches intially then as reps progress not as high but only hold 2 sec before need to slow lower. 08/17/21: lift up 3 then slowly lower (AFO and shoe on, performed after 6MWT). (08/22/21: Pt able to lift R leg with assist of her UE's to place R knee over the L knee, but pt has difficulty keeping her R knee in place) 09/12/21: able to put RLE over L to put on pants and not have to hold as hard, staying better. 09/28/21: progressing: pt ableto complete R hip flexion/ ER AROM foot little higher than mid morocho 2x10 reps today wtihout UE assist. LTG Duration 12/18/21 (09/28/21 progressing ) Five Impairment Decreased stamina Short Term Goal (STG) Pt will be able to tolerate 10 minutes of upper body strengthening during a 38 miniute therapy session. 08/17/21: performed/ reviewed end tx didn't time. 08/22/21: UBE x 4' & 90 rpm. 09/12/21: scifit: 6 min UE/LEs 09/19/21: Biodex x 8' UE/LEs 09/28/21: scifit x8 min LEs only 2.5 resistance, UBE 4 min at 105 resistance. STG Duration 11/16/21 (09/28/21: Progressed) Benefit Authorizer Goal (LTG) Pt will have greater confidence in her walking as demonstrated by improved TUG score of 14 or less. (07/18/21: TUG 22 secs w/AFO/ cane. 05/30/21: TUG 15 w/ AFO/cane). 09/12/21: GOAL MET: TUG 16s, 13s , 13s=20-40% impaired improved from 15 on 05/30/21. LTG Duration 11/20/21 (09/12/21: MET GOAL) Four Impairment Gait dysfunction Impairment R foot drop with occasional catching of toes. Short Term Goal (STG) Increase R hip/knee/ankle strength by 1/2 grade. (07/18/21: NOT MET for: R Hip ER/IR; R Knee flex) (08/22/21: R hip ER 3+/5, IR is 3/5; initially was ER 3/5, IR 3+/5. R knee flex same at 3+/5) STG Duration 11/16/21 (07/18/21: Goal mostly met) Benefit Authorizer Goal (LTG) Legs not as tired at the end of the day with pt able to take her dog on a longer walk to end of block and back. 07/11/20: Pt only able to walk dog out to go to bathroom with cold bad weather, pre bad weather only able walk dog 3 drive[address] and back, uses SPC in LUE. PLOF reported during good weather days was able to walk approx total 1/4 mile. 08/22/21: Legs not too tired at the end of the day and walks dog 2-3x/day and can walk her dog to the end of the block and back. (09/19/21: 1x/week doing a long walk of 1+mile, usually early afternoon). LTG Duration 10/16/21 (08/22/21: MET GOAL) Three Impairment Decreased Balance Impairment Loss of balance without fall 2x/day in home. Shelter Goal (LTG) Improve balance with less reported LOB or no loss of balance with gait in home with more consistent use of AFO. 06/27/21: improved balanced gait, less R hip lateral ankle / hip deviations with new sneakers 9.5 (1 whole size larger). 07/11/20: pt reported had 2 falls (1 [address], 1 in kitchen) due to toe catching floor but not sure which foot caught the floor since last tx . Not sure why, maybe due to new sneakers 1 whole size bigger at 9.5 for AFO fit, vs 8.5. (07/18/21: No falls the past week, occasional LOB without fall) 08/17/21: had 1 fall since seen PT, not wearing shoes to go get shoes, sock got caught on nail of threshold last Sat/ Sun. Not LOB or fall since then. 08/22/21: No LOB since last reported on 08/17/21 09/12/21: Pt reports no LOB in home with AFO 90% of the time donned. 09/19/21: Thinks balance is being effected by the crystals in her ears. LOB day before yesterday with brief sec when turning around, but was able to catch self. LTG Duration 11/20/21 (09/12/21: MET GOAL) Two Impairment Decreased R LE strength Impairment Hip: Flexion 5/5 L, 4+/5 R; ER 3-/5 R, 2/5 L; IR 4+/5 bilaterally. Knee: Flex: 4/5 bilaterally; Ext: 3+/5 R, 5/5 L Ankle: Left: generally 5/5; Right: DF 2+/5, PF 3+/5, IV 3/ 5, EV 2/5. Short Term Goal (STG) Improve R ankle: generally 3+/ 5, R Knee: generally 4+/5; R hip AB 4/5 (07/11/20: HEP R ankle EV, DF TB #1). (07/18/21: R ankle: PF/IV is 5 /5 & DF/EV is 3-/5; R knee: Flex 3+/5, Ext 5/5; Hip AB 3-/ 5), (08/22/21: R ankle: PF/IV is 5 /5 & DF/EV is 3/5; R knee: Flex 3+/5, Ext 5/5; Hip AB 3-/ 5), STG Duration 11/16/21 (08/22/21: Improved in R ankle DF & EV strength 1/ 2 grade.) Shelter Goal (LTG) Increase R LE strength with pt able to lift self into bed at end of day with use of R leg. 07/11/20: GOAL MET: pt reports is able to lift RLE into bed now without UE support. (07/18/21: Able to boost self into bed 75% of the time.) LTG Duration 07/11/20 GOAL MET One Impairment HEP Impairment Pt goals received 05/30/21: Strengthen legs (R) & upper body; Hips feel like in alignment after sitting (R hip feels like it is forward). Short Term Goal (STG) Pt will be independent with a self care HEP of hip/knee/ ankle strengthening exercises. (05/30/21: HEP issued for hip and knee flex strengthening, STS without UE support) (06/08/21: Strengthening: Added HEP hip AB; 06/13/21: Added hip Ext. ABD 06/15/21: Added trunk rot) 06/22/21: added R ankle TB PF/ Eccentric DF, EV. (07/18/21: Verbal review of HEP of hip/knee/ankle ex's) STG Duration 06/23/21 (07/18/21: MET GOAL) Shelter Goal (LTG) Pt will be independent with a self care HEP of core strengthening exercises. (06/19/21: Core strengthening ex HEP issued) (07/20/21: Added HEP trunk flex) 08/17/21: R hip flexion/ eccentric lower seated, able get up from laying down positioning w/ hands. seated TB DF, EV. LE/ Core Step up/ downs w/ BHR, corner balance NBOS, stagger. 08/24/21: added side(reverse) & clamshell. Continue seated ankle TB #2, eccentric hip flexion, seated TB trunk flex/ ext/ rotate/ SB; stand: HS curl, side stepping, step up/ downs, STS etc. 09/28/21: pt performing seated resisted trunk rotation/SB, standing march, hip flex/ ER AROM, seated HS curl, side stepping, up/ down step w/ handle support. LTG Duration 12/18/21 (09/28/21: Clarified trunk/hip abd strengthening) Assessment Summary Assessment PN not required, pt on 4th note after PN. With new wedge in shoe, pt has mild IV of ankle with gait; therefore pt needs to see drier tender to grind down edge of new wedge made. Pt feels more secure with new edge on top of AFO. Pt showing better control of movement of RLE when side stepping. Physical Therapy Plan Frequency and Duration Frequency of Treatment 2x/Week Plan of Care Start Date 09/19/21 Plan of Care End Date 12/18/21 Next Visit Focus/Plan Next Note Type Treatment Note Next Visit Plan Recheck R LE marching motion & knee flexion seated HEP and standing pre gait for foot clearance. Progress endurance with UBE at end of therapy. Recheck hip strength (ext, AB, AD) & HEP, gastroc stretch. Strengthen R knee flex, R ankle DF & EV, improve ROM of R ankle EV. Continue: standing balance saran stepping, NBOS and on soft surfaces, gait w/ SPC. Continue Strengthening: R Hip ER/R IR; R Knee flex in range of 90-125 deg's, remind pt HEP: ankle DF along with improved mobility. POC: Continue balance training and uneven surfaces gait. Focus on neuro-reeducation for balance and improving stability/safety with gait (on soft/uneven surface), improving stamina & functional strength of RLE.
--- NOTE | 2021-10-10 11:15 | PT.OTN ---
Current Diagnoses Major depressive disorder, single episode, in full remission (10/10/21) Multiple sclerosis (10/10/21) Muscle weakness (generalized) (10/10/21) Age-related osteoporosis without current pathological fracture (10/10/21) Unspecified abnormalities of gait and mobility (10/10/21) Dizziness and giddiness (10/10/21) Physical Therapy Treatment Note PT-OP-A Visit Information Start: 05/23/21 18:50 Freq: Status: Active Protocol: Document 10/10/21 10:32 SP (Rec: 10/10/21 11:32 SP [id number]) Out-Patient Physical Therapy Visit Information Visit Information Visit Type Treatment Note Visit Start Time 10:32 Visit Stop Time 11:15 Total Visit Minutes 43 Visit Number 31 Number of LEATHER SPLITTER Visits 1 Evaluation Information Evaluation Date 05/25/21 Precautions Precautions Multiple Sclerosis, Osteoporosis, Dizziness, back pain. R handed. Has life alerts. PT-OP-B Current Condition Start: 05/23/21 18:50 Freq: Status: Active Protocol: Document 05/25/21 11:23 LRN (Rec: 05/25/21 12:06 LRN [id number]) Current Condition History of Current Condition Onset Date 17 yrs ago. Current Complaints Progressive weakness of RLE, since dx'd with MS; spasticity of lisbet LE R>L History of Current Condition Pt reports R foot drop and LE weakness due to MS with R foot dragging for past 10-15 yrs. Has had MS since ~1971, started with numb patches in the legs and clumsy. She has had an AFO for the R ankle foot for 5 yrs ago and wears it intermittently because she can only wear it with one pair of shoes. Pt did not wear the AFO today. States her primary care physician sent her to PT at her request due to having had PT several years ago with Rojelio Slaughter, PT. Neurologist, Natalya Stewart is planning on having her fit for another AFO on R LE that will help her to move the R LE (keep the foot straight and help to raise the foot). Pt reports she sometimes gets dizzy causing LOB without falls. Daughter calls her daily. Prior Treatments and Tests Sees chiropractor every other week. Future Testing and Treatments Planned Fit for RLE brace/AFO; company to contact her within 2-3 weeks. Treatment Goals Patient/Caregiver Goals Pt goal is to work on: *Balance, less LOB (no loss of balance), *Gait, legs not as tired at the end of the day, take longer walks with dog (walking to end of block) *Strengthen R LE to improve ability to lift self into bed at end of day, pushing withGait R leg. Prior Functional Status Baseline Function- Gait Gait with cane. Current Functional Impairments (Reported) Functional Limitations- ADL's Difficulty getting into bed at end of day. Functional Limitations- Mobility/Gait Walks 1/[address] to end of block to mailbox, then home Personal Factors Other Personal Factors That May Effect MS, Osteoporsis, dizziness. Therapy/Recovery PT-OP-C Subjective Start: 05/23/21 18:50 Freq: Status: Active Protocol: Document 10/10/21 10:32 SP (Rec: 10/10/21 11:32 SP [id number]) OP-PT Subjective Patient Comments Patient Comments Pt reports has been having soreness at medial R great toe and can't wear her sneakers the past week. She arrived with maccasin sleppers donned and no AFO, stated forgot to put AFO on. She states after last walk 1/2 miles her toes swell, red then peeled. Its been a week wearing her moccasin sleepers to allow healing and feeling alot better. She has shoe stretchers in sneakers to allow increase space for ability to wear without pain. She isn't suposed to wear moccasin slippers at [place] so trying to do what can. She has follow up with physician at 130 today, will mention toe pain, swelling and peeling. Pt stated went and saw statue maker and improved added wedge in R shoe for ankle stability right after PT appt, feels a lot better states. PT-OP-D Balance Start: 05/23/21 18:50 Freq: Status: Active Protocol: Document 09/19/21 10:30 LRN (Rec: 09/19/21 12:25 LRN [id number]) Balance Tests Other Other Balance Tests Performed EO on solid surface: 60 secs EC on solid surface: 60 secs EO on soft surface (blue foam) : 60 secs EC on soft surface (blue foam) : 1 sec PT-OP-E Functional Tests Start: 05/23/21 18:50 Freq: Status: Active Protocol: Document 09/12/21 10:32 SP (Rec: 09/12/21 11:44 SP [id number]) Functional Tests Timed Up and Go (TUG) Score 16s, 13s,13s Comments Use of GB/SPC/R AFO TUG Impairment Rating 20 to <40% Impaired (Score 12- 13) PT-OP-G Mobility & Gait Start: 05/23/21 18:50 Freq: Status: Active Protocol: Document 08/22/21 10:38 LRN (Rec: 08/22/21 12:20 LRN [id number]) OP Gait Assessment Gait Gait Assistance Required: Independent Distance (Feet) 100 Assistive Devices Assistive Device Straight Cane Gait Deviations General Gait Pattern Decreased Stride Length, Lateral Trunk Lean Factors Limiting Gait Function Factors Limiting Gait Function Abnormal Tonal Influences, Decreased Strength,Poor Balance Comments Gait Comments R AFO improves ankle position, but noted R ankle IV's on stance phase. PT-OP-J Posture/Palpation/Skin Start: 05/23/21 18:50 Freq: Status: Active Protocol: Document 05/25/21 11:23 LRN (Rec: 05/25/21 12:06 LRN [id number]) Posture Evaluation Position Standing Head/C-Spine Posture Forward Head Shoulder Posture (L) Elevated Knee Posture (L) Excess Flexion Ankle/Foot Posture (R) Supinated,(R) Calcaneal Inversion Comments Posture Comments L leg long, holds knee flexed. When R knee is straight, the pelvis rotates right. Slight curve of back with apex on the left. PT-OP-K Range of Motion Start: 05/23/21 18:50 Freq: Status: Active Protocol: Document 07/18/21 12:51 LRN (Rec: 07/18/21 13:37 LRN [id number]) Ankle and Foot Goniometric Range of Motion Ankle and Foot Left Active Ankle/Foot ROM WFL Yes Testing Position Sitting Dorsiflexion with Knee Flexed 7 Inversion 30 Eversion 30 Right Active Ankle/Foot ROM WFL No Testing Position Sitting Inversion 35 Eversion 10 Comments Ankle DF with knee flexed is lacking 5 deg's to neutral. PT-OP-M Strength Start: 05/23/21 18:50 Freq: Status: Active Protocol: Document 08/22/21 10:38 LRN (Rec: 08/22/21 12:20 LRN [id number]) Hip Strength Hip Manual Muscle Testing Right Flexion (L2) 5 Normal External Rotation 3+ Fair+ Internal Rotation 3+ Fair+ Left Flexion (L2) 5 Normal Extension (S1) 5 Normal Abduction 5 Normal Adduction 5 Normal External Rotation 5 Normal Internal Rotation 4+ Good+ Knee Strength Knee Manual Muscle Testing Right Flexion (S2) 3+ Fair+ Extension (L3) 5 Normal Left Flexion (S2) 5 Normal Extension (L3) 5 Normal PT-OP-Q Treatments Start: 05/23/21 18:50 Freq: Status: Active Protocol: Document 10/10/21 10:32 SP (Rec: 10/10/21 11:32 SP [id number]) Cardio Equipment Upper Body Ergometer (UBE) Duration (Minutes) 6 RPM 105 Seat Position 10 Height 2.5 forward and backward Other 348 cycles, cued head back neutral/no UT recruit Recumbent Stepper (Sci-Fit) Duration (Minutes) 8 Resistance 2.5 Seat Position 8 Other 57- 59 RPM, LEs only. 1.17 miles Gait Training Gait Activity Uneven surface in//bars Description outdoor uneven surface assimulation, thick carpet Device Used //bars as needed Level of Assistance CGA> close SBA w/ gait belt w/ gait belt Surface 1> 2blue lrg mats, //bars> SPC outside //bars Distance/Duration 10 ft x4 laps 1 HR light, then SPC outside //bars Treatment Focus balance recovery uneven surfaces Comments LOB x1 needs Mod contact rail, cued increase ARMANDO when receiprocal walking and importance of use of SPC around appartment for stability on thick carpet instead of contacting furniture, improved stability 3 between BLE and use of SPC no LOB or deviations. Neuro Re-Education Treatment Balance Activities corner balance Details NBOS, stagger, tandem- HEP Review Surface firm Equipment corner at back, back of chair at front for steady balance Reps/Duration 105min Comments NBOS: head turns, EC 30s- stable Stagger: R forward: head turn & EC 30 sec L forward: head turns & EC 30s *Improved self corrections tall posture, core and glut fac w/ weight between BLE foot , improved stability and self corrections. Tandem EO open only: R forward position: able complete head turns with sways but self corrections R back position: sways and contact recovery more L than R L forward: 10s before LOB, 30s after ed wt between BLE more forward into L foot. Improved cue core and glut facilitation . PT-OP-T Assessment and Plan Start: 05/23/21 18:50 Freq: Status: Active Protocol: Document 10/10/21 10:32 SP (Rec: 10/10/21 11:32 SP [id number]) Physical Therapy Assessment Goals Decreased balance on unlevel surfaces. Impairment Decreased balance on unlevel surface. Impairment EC on soft surface standing feet together: 1 sec EC on solid surface standing feet together: 60+ secs Fpc Goal (LTG) Improve pt's balance on soft/ uneven surfaces with pt able to walk on part of [place] with cane/R AFO independently and with increased confidence in safety with gait and no loss of balance. 09/26/21: see 09/26 note with uneven surface gait w/SPC. 10/10/21: improved soft suface gait w/ SPC (blue mat) inially 5%A then improved w/ SPC and cues increase ARMANDO approx 3 between BLE (no AFO/maccasins on today), assimulate home thick carpet. LTG Duration 12/18/21 (10/10/21: progressing) Seven Impairment Increased sway with turning generally 2x/week. Impairment Near fall with turning ~2x/ week. Short Term Goal (STG) Vestibular assessment for inner ear dysfunction causing dizziness on turning. 09/28/21: pt has appt on 11/07/21 with Vestibular PT. STG Duration 11/16/21 (VPT appt 11/07/21) Inside Sales Person Goal (LTG) Pt able to turn with confidence and abby near fall episodes to no more than 1-2/ month. LTG Duration 12/18/21 Six Impairment Decreased functional strength Impairment Pt has difficulty raising R leg to put leg in pants. 08/10/21: pt states still bending over and putting on pants. Suggested Cross RLE over L place pant on foot then eccentrically lower RLE into pant leg for added strengthening. 08/17/21: pt states can't miantain RLE ankle on LLE put pants on so crosses RLE over LLE and puts on. Is doing hip flexion lift ex. Depending upon what chair sit in can hold RLE ankle over LLE to put on pants and ease slow RLE to floor as pull pants up R leg. Inside Sales Person Goal (LTG) Pt will be able to lift R leg (in sitting) for ease of dressing (to put leg in pants) . 08/10/21: Progressing can lift RLE off ground about 5 inches intially then as reps progress not as high but only hold 2 sec before need to slow lower. 08/17/21: lift up 3 then slowly lower (AFO and shoe on, performed after 6MWT). (08/22/21: Pt able to lift R leg with assist of her UE's to place R knee over the L knee, but pt has difficulty keeping her R knee in place) 09/12/21: able to put RLE over L to put on pants and not have to hold as hard, staying better. 09/28/21: progressing: pt ableto complete R hip flexion/ ER AROM foot little higher than mid morocho 2x10 reps today wtihout UE assist. LTG Duration 12/18/21 (09/28/21 progressing ) Five Impairment Decreased stamina Short Term Goal (STG) Pt will be able to tolerate 10 minutes of upper body strengthening during a 38 miniute therapy session. 08/17/21: performed/ reviewed end tx didn't time. 08/22/21: UBE x 4' & 90 rpm. 09/12/21: scifit: 6 min UE/LEs 09/19/21: Biodex x 8' UE/LEs 09/28/21: scifit x8 min LEs only 2.5 resistance, UBE 4 min at 105 resistance. 10/10/21: scifit 8 min LEs 2.5 resistance, 6 min UBE 105 resistance STG Duration 11/16/21 (10/10/21: Progressed ) Inside Sales Person Goal (LTG) Pt will have greater confidence in her walking as demonstrated by improved TUG score of 14 or less. (07/18/21: TUG 22 secs w/AFO/ cane. 05/30/21: TUG 15 w/ AFO/cane). 09/12/21: GOAL MET: TUG 16s, 13s , 13s=20-40% impaired improved from 15 on 05/30/21. LTG Duration 11/20/21 (09/12/21: MET GOAL) Four Impairment Gait dysfunction Impairment R foot drop with occasional catching of toes. Short Term Goal (STG) Increase R hip/knee/ankle strength by 1/2 grade. (07/18/21: NOT MET for: R Hip ER/IR; R Knee flex) (08/22/21: R hip ER 3+/5, IR is 3/5; initially was ER 3/5, IR 3+/5. R knee flex same at 3+/5) STG Duration 11/16/21 (07/18/21: Goal mostly met) Inside Sales Person Goal (LTG) Legs not as tired at the end of the day with pt able to take her dog on a longer walk to end of block and back. 07/11/20: Pt only able to walk dog out to go to bathroom with cold bad weather, pre bad weather only able walk dog 3 [address] and back, uses SPC in LUE. PLOF reported during good weather days was able to walk approx total 1/4 mile. 08/22/21: Legs not too tired at the end of the day and walks dog 2-3x/day and can walk her dog to the end of the block and back. (09/19/21: 1x/week doing a long walk of 1+mile, usually early afternoon). LTG Duration 10/16/21 (08/22/21: MET GOAL) Two Impairment Decreased R LE strength Impairment Hip: Flexion 5/5 L, 4+/5 R; ER 3-/5 R, 2/5 L; IR 4+/5 bilaterally. Knee: Flex: 4/5 bilaterally; Ext: 3+/5 R, 5/5 L Ankle: Left: generally 5/5; Right: DF 2+/5, PF 3+/5, IV 3/ 5, EV 2/5. Short Term Goal (STG) Improve R ankle: generally 3+/ 5, R Knee: generally 4+/5; R hip AB 4/5 (07/11/20: HEP R ankle EV, DF TB #1). (07/18/21: R ankle: PF/IV is 5 /5 & DF/EV is 3-/5; R knee: Flex 3+/5, Ext 5/5; Hip AB 3-/ 5), (08/22/21: R ankle: PF/IV is 5 /5 & DF/EV is 3/5; R knee: Flex 3+/5, Ext 5/5; Hip AB 3-/ 5), STG Duration 11/16/21 (08/22/21: Improved in R ankle DF & EV strength 1/ 2 grade.) Fpc Goal (LTG) Increase R LE strength with pt able to lift self into bed at end of day with use of R leg. 07/11/20: GOAL MET: pt reports is able to lift RLE into bed now without UE support. (07/18/21: Able to boost self into bed 75% of the time.) LTG Duration 07/11/20 GOAL MET One Impairment HEP Impairment Pt goals received 05/30/21: Strengthen legs (R) & upper body; Hips feel like in alignment after sitting (R hip feels like it is forward). Short Term Goal (STG) Pt will be independent with a self care HEP of hip/knee/ ankle strengthening exercises. (05/30/21: HEP issued for hip and knee flex strengthening, STS without UE support) (06/08/21: Strengthening: Added HEP hip AB; 06/13/21: Added hip Ext. ABD 06/15/21: Added trunk rot) 06/22/21: added R ankle TB PF/ Eccentric DF, EV. (07/18/21: Verbal review of HEP of hip/knee/ankle ex's) STG Duration 06/23/21 (07/18/21: MET GOAL) Fpc Goal (LTG) Pt will be independent with a self care HEP of core strengthening exercises. (06/19/21: Core strengthening ex HEP issued) (07/20/21: Added HEP trunk flex) 08/17/21: R hip flexion/ eccentric lower seated, able get up from laying down positioning w/ hands. seated TB DF, EV. LE/ Core Step up/ downs w/ BHR, corner balance NBOS, stagger. 08/24/21: added side(reverse) & clamshell. Continue seated ankle TB #2, eccentric hip flexion, seated TB trunk flex/ ext/ rotate/ SB; stand: HS curl, side stepping, step up/ downs, STS etc. 09/28/21: pt performing seated resisted trunk rotation/SB, standing march, hip flex/ ER AROM, seated HS curl, side stepping, up/ down step w/ handle support. 10/10/21: progressing: focused on corner balance: NBOS andstagger 30s EC, tandem EO HT only partial R unable turn R. Cued tall alignment, core and hip glut fac, improved stability for confidence for home carryover. LTG Duration 12/18/21 (10/10/21: progressing ) Assessment Summary Assessment Pt improved upper body endurance 6 min this tx, cued for posture. Improved self confidence corner balance tandem EO only, and ability EC other foot positions today. Time spent uneven mat w/ SPC for confidence and stabilty gait at home thick carpet, improved cued increase ARMANDO. Physical Therapy Plan Frequency and Duration Frequency of Treatment 2x/Week Plan of Care Start Date 09/19/21 Plan of Care End Date 12/18/21 Therapeutic Interventions Therapeutic Interventions Aquatic Therapy,Balance Training,Gait Training,Home Exercise Program,Manual Therapy,Neuromuscular Re- education,Patient/Caregiver Education,Self-Care/Home Management,Therapeutic Activities,Therapeutic Exercises Modalities Cold Pack/Ice Massage,Hot Packs Next Visit Focus/Plan Next Note Type Treatment Note Next Visit Plan Recheck last Dr goldstein, donned AFO and footwear for comfort. Pt stated wants continue 1x/wk for progress balance and dynamic surface gait for decrease falls. POC: Recheck R LE marching motion & knee flexion seated HEP and standing pre gait for foot clearance. Progress endurance with UBE at end of therapy. Recheck hip strength (ext, AB, AD) & HEP, gastroc stretch. Strengthen R knee flex, R ankle DF & EV, improve ROM of R ankle EV. Continue: standing balance saran stepping, NBOS and on soft surfaces, gait w/ SPC. Continue Strengthening: R Hip ER/R IR; R Knee flex in range of 90-125 deg's, remind pt HEP: ankle DF along with improved mobility. POC: Continue balance training and uneven surfaces gait. Focus on neuro-reeducation for balance and improving stability/safety with gait (on soft/uneven surface), improving stamina & functional strength of RLE.
--- NOTE | 2021-10-12 17:51 | PT.OTN ---
Current Diagnoses Major depressive disorder, single episode, in full remission (10/12/21) Multiple sclerosis (10/12/21) Muscle weakness (generalized) (10/12/21) Age-related osteoporosis without current pathological fracture (10/12/21) Unspecified abnormalities of gait and mobility (10/12/21) Dizziness and giddiness (10/12/21) Physical Therapy Treatment Note PT-OP-A Visit Information Start: 05/23/21 18:50 Freq: Status: Active Protocol: Document 10/12/21 10:37 LRN (Rec: 10/12/21 11:23 LRN [id number]) Out-Patient Physical Therapy Visit Information Visit Information Visit Type Treatment Note Visit Start Time 10:37 Visit Stop Time 11:22 Total Visit Minutes 45 Visit Number 32 Evaluation Information Evaluation Date 05/25/21 Precautions Precautions Multiple Sclerosis, Osteoporosis, Dizziness, back pain. R handed. Has life alerts. PT-OP-B Current Condition Start: 05/23/21 18:50 Freq: Status: Active Protocol: Document 05/25/21 11:23 LRN (Rec: 05/25/21 12:06 LRN [id number]) Current Condition History of Current Condition Onset Date 17 yrs ago. Current Complaints Progressive weakness of RLE, since dx'd with MS; spasticity of lisbet LE R>L History of Current Condition Pt reports R foot drop and LE weakness due to MS with R foot dragging for past 10-15 yrs. Has had MS since ~1971, started with numb patches in the legs and clumsy. She has had an AFO for the R ankle foot for 5 yrs ago and wears it intermittently because she can only wear it with one pair of shoes. Pt did not wear the AFO today. States her primary care physician sent her to PT at her request due to having had PT several years ago with Rojelio Slaughter, PT. Neurologist, Natalya Stewart is planning on having her fit for another AFO on R LE that will help her to move the R LE (keep the foot straight and help to raise the foot). Pt reports she sometimes gets dizzy causing LOB without falls. Daughter calls her daily. Prior Treatments and Tests Sees chiropractor every other week. Future Testing and Treatments Planned Fit for RLE brace/AFO; company to contact her within 2-3 weeks. Treatment Goals Patient/Caregiver Goals Pt goal is to work on: *Balance, less LOB (no loss of balance), *Gait, legs not as tired at the end of the day, take longer walks with dog (walking to end of block) *Strengthen R LE to improve ability to lift self into bed at end of day, pushing withGait R leg. Prior Functional Status Baseline Function- Gait Gait with cane. Current Functional Impairments (Reported) Functional Limitations- ADL's Difficulty getting into bed at end of day. Functional Limitations- Mobility/Gait Walks 1/[address] to end of block to mailbox, then home Personal Factors Other Personal Factors That May Effect MS, Osteoporsis, dizziness. Therapy/Recovery PT-OP-C Subjective Start: 05/23/21 18:50 Freq: Status: Active Protocol: Document 10/12/21 10:37 LRN (Rec: 10/12/21 11:23 LRN [id number]) OP-PT Subjective Patient Comments Patient Comments No falls, doing ex's daily. Getting ready to go on trip this Saturday (3 days) for 3 weeks and will take HEP. States she went to orthotics store after last session to get her AFO refit with wedge on lateral side of AFO. PT-OP-D Balance Start: 05/23/21 18:50 Freq: Status: Active Protocol: Document 09/19/21 10:30 LRN (Rec: 09/19/21 12:25 LRN [id number]) Balance Tests Other Other Balance Tests Performed EO on solid surface: 60 secs EC on solid surface: 60 secs EO on soft surface (blue foam) : 60 secs EC on soft surface (blue foam) : 1 sec PT-OP-E Functional Tests Start: 05/23/21 18:50 Freq: Status: Active Protocol: Document 09/12/21 10:32 SP (Rec: 09/12/21 11:44 SP [id number]) Functional Tests Timed Up and Go (TUG) Score 16s, 13s,13s Comments Use of GB/SPC/R AFO TUG Impairment Rating 20 to <40% Impaired (Score 12- 13) PT-OP-G Mobility & Gait Start: 05/23/21 18:50 Freq: Status: Active Protocol: Document 08/22/21 10:38 LRN (Rec: 08/22/21 12:20 LRN [id number]) OP Gait Assessment Gait Gait Assistance Required: Independent Distance (Feet) 100 Assistive Devices Assistive Device Straight Cane Gait Deviations General Gait Pattern Decreased Stride Length, Lateral Trunk Lean Factors Limiting Gait Function Factors Limiting Gait Function Abnormal Tonal Influences, Decreased Strength,Poor Balance Comments Gait Comments R AFO improves ankle position, but noted R ankle IV's on stance phase. PT-OP-J Posture/Palpation/Skin Start: 05/23/21 18:50 Freq: Status: Active Protocol: Document 05/25/21 11:23 LRN (Rec: 05/25/21 12:06 LRN [id number]) Posture Evaluation Position Standing Head/C-Spine Posture Forward Head Shoulder Posture (L) Elevated Knee Posture (L) Excess Flexion Ankle/Foot Posture (R) Supinated,(R) Calcaneal Inversion Comments Posture Comments L leg long, holds knee flexed. When R knee is straight, the pelvis rotates right. Slight curve of back with apex on the left. PT-OP-K Range of Motion Start: 05/23/21 18:50 Freq: Status: Active Protocol: Document 07/18/21 12:51 LRN (Rec: 07/18/21 13:37 LRN [id number]) Ankle and Foot Goniometric Range of Motion Ankle and Foot Left Active Ankle/Foot ROM WFL Yes Testing Position Sitting Dorsiflexion with Knee Flexed 7 Inversion 30 Eversion 30 Right Active Ankle/Foot ROM WFL No Testing Position Sitting Inversion 35 Eversion 10 Comments Ankle DF with knee flexed is lacking 5 deg's to neutral. PT-OP-M Strength Start: 05/23/21 18:50 Freq: Status: Active Protocol: Document 08/22/21 10:38 LRN (Rec: 08/22/21 12:20 LRN [id number]) Hip Strength Hip Manual Muscle Testing Right Flexion (L2) 5 Normal External Rotation 3+ Fair+ Internal Rotation 3+ Fair+ Left Flexion (L2) 5 Normal Extension (S1) 5 Normal Abduction 5 Normal Adduction 5 Normal External Rotation 5 Normal Internal Rotation 4+ Good+ Knee Strength Knee Manual Muscle Testing Right Flexion (S2) 3+ Fair+ Extension (L3) 5 Normal Left Flexion (S2) 5 Normal Extension (L3) 5 Normal PT-OP-Q Treatments Start: 05/23/21 18:50 Freq: Status: Active Protocol: Document 10/12/21 10:37 LRN (Rec: 10/12/21 11:23 LRN [id number]) Cardio Equipment Upper Body Ergometer (UBE) Duration (Minutes) 7 RPM 95 Seat Position 10 Height 3.5 forward and backward Other Cued head back neutral/no UT recruit Therapeutic Exercises Sitting Exercises R leg lifting over L knee Sitting Exercise Name RLE lifting over knee Side right Resistance AROM Equipment Used seated in mesh chair Reps/Minutes 5' Comments Lifted over L knee, but used hands to pull securely onto knee. Gait Training Gait Activity gait uneven soft surfaces Description outdoor uneven surface assimulation, thick carpet Level of Assistance CGA> close SBA w/ gait belt Surface 2blue lrg mats w/SPC Distance/Duration 20 ft x12 laps Treatment Focus balance recovery uneven surfaces Comments .....................LOB x1 needs Mod contact rail, cued increase ARMANDO when receiprocal walking and importance of use of SPC around appartment for stability on thick carpet instead of contacting furniture, improved stability 3 between BLE and use of SPC no LOB or deviations. Neuro Re-Education Treatment Balance Activities corner balance Details stagger, tandem Surface firm Equipment corner at back, back of chair at front for steady balance Comments NBOS: head turns, EC 30s- stable Stagger: R forward: head turn and looking up & EO 30 sec L forward: head turns and looking up & E) 30s *Improved self corrections tall posture, core and glut fac. Tandem EO open only: R forward position: able complete head turns with sways but self corrections LOB x 1 with L leg fwd, 3x time with R leg fwd. L back position: sways and contact recovery more with R leg back. PT-OP-T Assessment and Plan Start: 05/23/21 18:50 Freq: Status: Active Protocol: Document 10/12/21 10:37 LRN (Rec: 10/12/21 11:23 LRN [id number]) Physical Therapy Assessment Goals Decreased balance on unlevel surfaces. Impairment Decreased balance on unlevel surface. Impairment EC on soft surface standing feet together: 1 sec EC on solid surface standing feet together: 60+ secs Senior Care Goal (LTG) Improve pt's balance on soft/ uneven surfaces with pt able to walk on part of [place] with cane/R AFO independently and with increased confidence in safety with gait and no loss of balance. 09/26/21: see 09/26 note with uneven surface gait w/SPC. 10/10/21: improved soft suface gait w/ SPC (blue mat) inially 5%A then improved w/ SPC and cues increase ARMANDO approx 3 between BLE (no AFO/maccasins on today), assimulate home thick carpet. LTG Duration 12/18/21 (10/10/21: progressing) Seven Impairment Increased sway with turning generally 2x/week. Impairment Near fall with turning ~2x/ week. Short Term Goal (STG) Vestibular assessment for inner ear dysfunction causing dizziness on turning. 09/28/21: pt has appt on 11/07/21 with Vestibular PT. STG Duration 11/16/21 (VPT appt 11/07/21) Senior Care Goal (LTG) Pt able to turn with confidence and abby near fall episodes to no more than 1-2/ month. LTG Duration 12/18/21 Six Impairment Decreased functional strength Impairment Pt has difficulty raising R leg to put leg in pants. 08/10/21: pt states still bending over and putting on pants. Suggested Cross RLE over L place pant on foot then eccentrically lower RLE into pant leg for added strengthening. 08/17/21: pt states can't miantain RLE ankle on LLE put pants on so crosses RLE over LLE and puts on. Is doing hip flexion lift ex. Depending upon what chair sit in can hold RLE ankle over LLE to put on pants and ease slow RLE to floor as pull pants up R leg. Senior Care Goal (LTG) Pt will be able to lift R leg (in sitting) for ease of dressing (to put leg in pants) . 08/10/21: Progressing can lift RLE off ground about 5 inches intially then as reps progress not as high but only hold 2 sec before need to slow lower. 08/17/21: lift up 3 then slowly lower (AFO and shoe on, performed after 6MWT). (08/22/21: Pt able to lift R leg with assist of her UE's to place R knee over the L knee, but pt has difficulty keeping her R knee in place) 09/12/21: able to put RLE over L to put on pants and not have to hold as hard, staying better. (09/28/21: progressing: pt ableto complete R hip flexion/ ER AROM foot little higher than mid morocho 2x10 reps today wtihout UE assist). (10/12/21: Pt able to lift RLE onto L knee to put socks/shoes on. Somedays not as successful as other days). LTG Duration 12/18/21 (10/12/21 MET GOAL) Five Impairment Decreased stamina Short Term Goal (STG) Pt will be able to tolerate 10 minutes of upper body strengthening during a 38 miniute therapy session. 08/17/21: performed/ reviewed end tx didn't time. 08/22/21: UBE x 4' & 90 rpm. 09/12/21: scifit: 6 min UE/LEs 09/19/21: Biodex x 8' UE/LEs 09/28/21: scifit x8 min LEs only 2.5 resistance, UBE 4 min at 105 resistance. 10/10/21: scifit 8 min LEs 2.5 resistance, 6 min UBE 105 resistance STG Duration 11/16/21 (10/10/21: Progressed ) Gas Operations Superintendent Goal (LTG) Pt will have greater confidence in her walking as demonstrated by improved TUG score of 14 or less. (07/18/21: TUG 22 secs w/AFO/ cane. 05/30/21: TUG 15 w/ AFO/cane). 09/12/21: GOAL MET: TUG 16s, 13s , 13s=20-40% impaired improved from 15 on 05/30/21. LTG Duration 11/20/21 (09/12/21: MET GOAL) Four Impairment Gait dysfunction Impairment R foot drop with occasional catching of toes. Short Term Goal (STG) Increase R hip/knee/ankle strength by 1/2 grade. (07/18/21: NOT MET for: R Hip ER/IR; R Knee flex) (08/22/21: R hip ER 3+/5, IR is 3/5; initially was ER 3/5, IR 3+/5. R knee flex same at 3+/5) STG Duration 11/16/21 (07/18/21: Goal mostly met) Gas Operations Superintendent Goal (LTG) Legs not as tired at the end of the day with pt able to take her dog on a longer walk to end of block and back. 07/11/20: Pt only able to walk dog out to go to bathroom with cold bad weather, pre bad weather only able walk dog 3 [address] and back, uses SPC in LUE. PLOF reported during good weather days was able to walk approx total 1/4 mile. 08/22/21: Legs not too tired at the end of the day and walks dog 2-3x/day and can walk her dog to the end of the block and back. (09/19/21: 1x/week doing a long walk of 1+mile, usually early afternoon). LTG Duration 10/16/21 (08/22/21: MET GOAL) Two Impairment Decreased R LE strength Impairment Hip: Flexion 5/5 L, 4+/5 R; ER 3-/5 R, 2/5 L; IR 4+/5 bilaterally. Knee: Flex: 4/5 bilaterally; Ext: 3+/5 R, 5/5 L Ankle: Left: generally 5/5; Right: DF 2+/5, PF 3+/5, IV 3/ 5, EV 2/5. Short Term Goal (STG) Improve R ankle: generally 3+/ 5, R Knee: generally 4+/5; R hip AB 4/5 (07/11/20: HEP R ankle EV, DF TB #1). (07/18/21: R ankle: PF/IV is 5 /5 & DF/EV is 3-/5; R knee: Flex 3+/5, Ext 5/5; Hip AB 3-/ 5), (08/22/21: R ankle: PF/IV is 5 /5 & DF/EV is 3/5; R knee: Flex 3+/5, Ext 5/5; Hip AB 3-/ 5), STG Duration 11/16/21 (08/22/21: Improved in R ankle DF & EV strength 1/ 2 grade.) Gas Operations Superintendent Goal (LTG) Increase R LE strength with pt able to lift self into bed at end of day with use of R leg. 07/11/20: GOAL MET: pt reports is able to lift RLE into bed now without UE support. (07/18/21: Able to boost self into bed 75% of the time.) LTG Duration 07/11/20 GOAL MET One Impairment HEP Impairment Pt goals received 05/30/21: Strengthen legs (R) & upper body; Hips feel like in alignment after sitting (R hip feels like it is forward). Short Term Goal (STG) Pt will be independent with a self care HEP of hip/knee/ ankle strengthening exercises. (05/30/21: HEP issued for hip and knee flex strengthening, STS without UE support) (06/08/21: Strengthening: Added HEP hip AB; 06/13/21: Added hip Ext. ABD 06/15/21: Added trunk rot) 06/22/21: added R ankle TB PF/ Eccentric DF, EV. (07/18/21: Verbal review of HEP of hip/knee/ankle ex's) STG Duration 06/23/21 (07/18/21: MET GOAL) Senior Care Goal (LTG) Pt will be independent with a self care HEP of core strengthening exercises. (06/19/21: Core strengthening ex HEP issued) (07/20/21: Added HEP trunk flex) 08/17/21: R hip flexion/ eccentric lower seated, able get up from laying down positioning w/ hands. seated TB DF, EV. LE/ Core Step up/ downs w/ BHR, corner balance NBOS, stagger. 08/24/21: added side(reverse) & clamshell. Continue seated ankle TB #2, eccentric hip flexion, seated TB trunk flex/ ext/ rotate/ SB; stand: HS curl, side stepping, step up/ downs, STS etc. 09/28/21: pt performing seated resisted trunk rotation/SB, standing march, hip flex/ ER AROM, seated HS curl, side stepping, up/ down step w/ handle support. 10/10/21: progressing: focused on corner balance: NBOS andstagger 30s EC, tandem EO HT only partial R unable turn R. Cued tall alignment, core and hip glut fac, improved stability for confidence for home carryover. LTG Duration 12/18/21 (10/10/21: progressing ) Progress Towards Goals Progress Comments LTG #6 MET. Pt able to lift R ankle over L knee without hand assist, but used hands to secure ankle onto knee. Assessment Summary Assessment Pt R AFO fit is good with R ankle in good alighment with walking and only a mild IV of ankle on weightbearing. Improved ability to lift RLE onto L knee for donning/ doffing socks/shoes. Pt uses hands to draw ankle up higher to secure ankle over knee. UBE endurance increased to 7' with cuing for posture. Physical Therapy Plan Frequency and Duration Frequency of Treatment 2x/Week Plan of Care Start Date 09/19/21 Plan of Care End Date 12/18/21 Next Visit Focus/Plan Next Note Type Treatment Note Next Visit Plan Recheck when last Dr goldstein. Pt wants continue 1x/wk for progress balance and dynamic surface gait for decrease falls after return from trip. POC: Recheck R LE marching motion & knee flexion seated HEP and standing pre gait for foot clearance. Progress endurance with UBE at end of therapy. Recheck hip strength (ext, AB, AD) & HEP, gastroc stretch. Strengthen R knee flex, R ankle DF & EV, improve ROM of R ankle EV. Continue: standing balance saran stepping, NBOS and on soft surfaces, gait w/ SPC. Continue Strengthening: R Hip ER/R IR; R Knee flex in range of 90-125 deg's, remind pt HEP: ankle DF along with improved mobility. POC: Continue balance training and uneven surfaces gait. Focus on neuro-reeducation for balance and improving stability/safety with gait (on soft/uneven surface), improving stamina & functional strength of RLE.
--- NOTE | 2021-11-07 13:05 | PT.OTN ---
Current Diagnoses Major depressive disorder, single episode, in full remission (11/07/21) Multiple sclerosis (11/07/21) Muscle weakness (generalized) (11/07/21) Age-related osteoporosis without current pathological fracture (11/07/21) Unspecified abnormalities of gait and mobility (11/07/21) Dizziness and giddiness (11/07/21) Physical Therapy Treatment Note PT-OP-A Visit Information Start: 05/23/21 18:50 Freq: Status: Active Protocol: Document 11/07/21 11:15 DCW (Rec: 11/07/21 11:59 DCW [id number]) Out-Patient Physical Therapy Visit Information Visit Information Visit Type Progress Note Visit Start Time 11:15 Visit Stop Time 12:00 Total Visit Minutes 45 Visit Number 33 Number of DIGITAL COMPOSER Visits 0 Evaluation Information Evaluation Date 05/25/21 Precautions Precautions Multiple Sclerosis, Osteoporosis, Dizziness, back pain. R handed. Has life alerts. PT-OP-B Current Condition Start: 05/23/21 18:50 Freq: Status: Active Protocol: Document 11/07/21 11:15 DCW (Rec: 11/07/21 11:59 DCW [id number]) Current Condition History of Current Condition Onset Date 17 yrs ago. Current Complaints Progressive weakness of RLE, since dx'd with MS; spasticity of lisbet LE R>L History of Current Condition Pt reports R foot drop and LE weakness due to MS with R foot dragging for past 10-15 yrs. Has had MS since ~1971, started with numb patches in the legs and clumsy. She has had an AFO for the R ankle foot for 5 yrs ago and wears it intermittently because she can only wear it with one pair of shoes. Pt did not wear the AFO today. States her primary care physician sent her to PT at her request due to having had PT several years ago with [facility]. Neurologist, Radha Stewartagirm Grewal is planning on having her fit for another AFO on R LE that will help her to move the R LE (keep the foot straight and help to raise the foot). Pt reports she sometimes gets dizzy causing LOB without falls. Daughter calls her daily. 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 Symptoms last ~5 seconds, she feels it largely occurs with changing her position or turning quickly. Prior Treatments and Tests Sees chiropractor every other week. Future Testing and Treatments Planned Fit for RLE brace/AFO; company to contact her within 2-3 weeks. PT-OP-C Subjective Start: 05/23/21 18:50 Freq: Status: Active Protocol: Document 11/07/21 11:15 DCW (Rec: 11/07/21 11:59 DCW [id number]) OP-PT Subjective Patient Comments Patient Comments Here to assess dizziness today , pt admits that it hasn't been happening as much since she started PT. Admits she had a fall, she was staying at a friend's house on 10/24, got up in the middle of the night, when I need to pee, I can't concentrate on my walking. Notes she stumbled into the edge of a dresser, got bruises along her sternum and a skin tear on her arm, unsure if she actually ended up on the floor or if she held onto the dresser. PT-OP-D Balance Start: 05/23/21 18:50 Freq: Status: Active Protocol: Document 09/19/21 10:30 LRN (Rec: 09/19/21 12:25 LRN [id number]) Balance Tests Other Other Balance Tests Performed EO on solid surface: 60 secs EC on solid surface: 60 secs EO on soft surface (blue foam) : 60 secs EC on soft surface (blue foam) : 1 sec PT-OP-E Functional Tests Start: 05/23/21 18:50 Freq: Status: Active Protocol: Document 09/12/21 10:32 SP (Rec: 09/12/21 11:44 SP [id number]) Functional Tests Timed Up and Go (TUG) Score 16s, 13s,13s Comments Use of GB/SPC/R AFO TUG Impairment Rating 20 to <40% Impaired (Score 12- 13) PT-OP-G Mobility & Gait Start: 05/23/21 18:50 Freq: Status: Active Protocol: Document 08/22/21 10:38 LRN (Rec: 08/22/21 12:20 LRN [id number]) OP Gait Assessment Gait Gait Assistance Required: Independent Distance (Feet) 100 Assistive Devices Assistive Device Straight Cane Gait Deviations General Gait Pattern Decreased Stride Length, Lateral Trunk Lean Factors Limiting Gait Function Factors Limiting Gait Function Abnormal Tonal Influences, Decreased Strength,Poor Balance Comments Gait Comments R AFO improves ankle position, but noted R ankle IV's on stance phase. PT-OP-J Posture/Palpation/Skin Start: 05/23/21 18:50 Freq: Status: Active Protocol: Document 05/25/21 11:23 LRN (Rec: 05/25/21 12:06 LRN [id number]) Posture Evaluation Position Standing Head/C-Spine Posture Forward Head Shoulder Posture (L) Elevated Knee Posture (L) Excess Flexion Ankle/Foot Posture (R) Supinated,(R) Calcaneal Inversion Comments Posture Comments L leg long, holds knee flexed. When R knee is straight, the pelvis rotates right. Slight curve of back with apex on the left. PT-OP-K Range of Motion Start: 05/23/21 18:50 Freq: Status: Active Protocol: Document 07/18/21 12:51 LRN (Rec: 07/18/21 13:37 LRN [id number]) Ankle and Foot Goniometric Range of Motion Ankle and Foot Left Active Ankle/Foot ROM WFL Yes Testing Position Sitting Dorsiflexion with Knee Flexed 7 Inversion 30 Eversion 30 Right Active Ankle/Foot ROM WFL No Testing Position Sitting Inversion 35 Eversion 10 Comments Ankle DF with knee flexed is lacking 5 deg's to neutral. PT-OP-M Strength Start: 05/23/21 18:50 Freq: Status: Active Protocol: Document 08/22/21 10:38 LRN (Rec: 08/22/21 12:20 LRN [id number]) Hip Strength Hip Manual Muscle Testing Right Flexion (L2) 5 Normal External Rotation 3+ Fair+ Internal Rotation 3+ Fair+ Left Flexion (L2) 5 Normal Extension (S1) 5 Normal Abduction 5 Normal Adduction 5 Normal External Rotation 5 Normal Internal Rotation 4+ Good+ Knee Strength Knee Manual Muscle Testing Right Flexion (S2) 3+ Fair+ Extension (L3) 5 Normal Left Flexion (S2) 5 Normal Extension (L3) 5 Normal PT-OP-O Vestibular Start: 11/07/21 11:24 Freq: Status: Active Protocol: Document 11/07/21 11:15 DCW (Rec: 11/07/21 11:59 DCW [id number]) Vestibular Assessment Auditory Tests English Test Within normal limits Rinne Test Negative Air Conduction Results Right Greater Visual Testing Smooth Pursuits Horizontal WNL Smooth Pursuits Vertical WNL Saccades Horizontal WNL Gaze Evoked Nystagmus With Fixation 1 deg R Gaze Evoked Nystagmus Without Fixation Negative Heave Test Positive Right Thrust Head Positive Right Spontaneous Nystagmus Positive Positional Testing [place]-Hallpike Negative Left,Negative Right Rolling Test Negative Left,Negative Right PT-OP-Q Treatments Start: 05/23/21 18:50 Freq: Status: Active Protocol: Document 11/07/21 11:15 DCW (Rec: 11/07/21 13:04 DCW [id number]) Manual Therapy Treatment Other Other Manual Treatments Positional testing Neuro Re-Education Treatment Vestibular Rehabilitation Testing Comments Vestibular testing PT-OP-T Assessment and Plan Start: 05/23/21 18:50 Freq: Status: Active Protocol: Document 11/07/21 11:15 DCW (Rec: 11/07/21 13:04 DCW [id number]) Physical Therapy Assessment Goals Decreased balance on unlevel surfaces. Impairment Decreased balance on unlevel surface. Impairment EC on soft surface standing feet together: 1 sec EC on solid surface standing feet together: 60+ secs Douper Goal (LTG) Improve pt's balance on soft/ uneven surfaces with pt able to walk on part of [place] with cane/R AFO independently and with increased confidence in safety with gait and no loss of balance. 09/26/21: see 09/26 note with uneven surface gait w/SPC. 10/10/21: improved soft suface gait w/ SPC (blue mat) inially 5%A then improved w/ SPC and cues increase ARMANDO approx 3 between BLE (no AFO/maccasins on today), assimulate home thick carpet. LTG Duration 12/18/21 (10/10/21: progressing) Seven Impairment Increased sway with turning generally 2x/week. Impairment Near fall with turning ~2x/ week. Short Term Goal (STG) Vestibular assessment for inner ear dysfunction causing dizziness on turning. 09/28/21: pt has appt on 11/07/21 with Vestibular PT. STG Duration 11/16/21 (VPT appt 11/07/21) Douper Goal (LTG) Pt able to turn with confidence and abby near fall episodes to no more than 1-2/ month. LTG Duration 12/18/21 Six Impairment Decreased functional strength Impairment Pt has difficulty raising R leg to put leg in pants. 08/10/21: pt states still bending over and putting on pants. Suggested Cross RLE over L place pant on foot then eccentrically lower RLE into pant leg for added strengthening. 08/17/21: pt states can't miantain RLE ankle on LLE put pants on so crosses RLE over LLE and puts on. Is doing hip flexion lift ex. Depending upon what chair sit in can hold RLE ankle over LLE to put on pants and ease slow RLE to floor as pull pants up R leg. Douper Goal (LTG) Pt will be able to lift R leg (in sitting) for ease of dressing (to put leg in pants) . 08/10/21: Progressing can lift RLE off ground about 5 inches intially then as reps progress not as high but only hold 2 sec before need to slow lower. 08/17/21: lift up 3 then slowly lower (AFO and shoe on, performed after 6MWT). (08/22/21: Pt able to lift R leg with assist of her UE's to place R knee over the L knee, but pt has difficulty keeping her R knee in place) 09/12/21: able to put RLE over L to put on pants and not have to hold as hard, staying better. (09/28/21: progressing: pt ableto complete R hip flexion/ ER AROM foot little higher than mid morocho 2x10 reps today wtihout UE assist). (10/12/21: Pt able to lift RLE onto L knee to put socks/shoes on. Somedays not as successful as other days). LTG Duration 12/18/21 (10/12/21 MET GOAL) Five Impairment Decreased stamina Short Term Goal (STG) Pt will be able to tolerate 10 minutes of upper body strengthening during a 38 miniute therapy session. 08/17/21: performed/ reviewed end tx didn't time. 08/22/21: UBE x 4' & 90 rpm. 09/12/21: scifit: 6 min UE/LEs 09/19/21: Biodex x 8' UE/LEs 09/28/21: scifit x8 min LEs only 2.5 resistance, UBE 4 min at 105 resistance. 10/10/21: scifit 8 min LEs 2.5 resistance, 6 min UBE 105 resistance STG Duration 11/16/21 (10/10/21: Progressed ) Douper Goal (LTG) Pt will have greater confidence in her walking as demonstrated by improved TUG score of 14 or less. (07/18/21: TUG 22 secs w/AFO/ cane. 05/30/21: TUG 15 w/ AFO/cane). 09/12/21: GOAL MET: TUG 16s, 13s , 13s=20-40% impaired improved from 15 on 05/30/21. LTG Duration 11/20/21 (09/12/21: MET GOAL) Four Impairment Gait dysfunction Impairment R foot drop with occasional catching of toes. Short Term Goal (STG) Increase R hip/knee/ankle strength by 1/2 grade. (07/18/21: NOT MET for: R Hip ER/IR; R Knee flex) (08/22/21: R hip ER 3+/5, IR is 3/5; initially was ER 3/5, IR 3+/5. R knee flex same at 3+/5) STG Duration 11/16/21 (07/18/21: Goal mostly met) Douper Goal (LTG) Legs not as tired at the end of the day with pt able to take her dog on a longer walk to end of block and back. 07/11/20: Pt only able to walk dog out to go to bathroom with cold bad weather, pre bad weather only able walk dog 3 drive[address] and back, uses SPC in LUE. PLOF reported during good weather days was able to walk approx total 1/4 mile. 08/22/21: Legs not too tired at the end of the day and walks dog 2-3x/day and can walk her dog to the end of the block and back. (09/19/21: 1x/week doing a long walk of 1+mile, usually early afternoon). LTG Duration 10/16/21 (08/22/21: MET GOAL) Two Impairment Decreased R LE strength Impairment Hip: Flexion 5/5 L, 4+/5 R; ER 3-/5 R, 2/5 L; IR 4+/5 bilaterally. Knee: Flex: 4/5 bilaterally; Ext: 3+/5 R, 5/5 L Ankle: Left: generally 5/5; Right: DF 2+/5, PF 3+/5, IV 3/ 5, EV 2/5. Short Term Goal (STG) Improve R ankle: generally 3+/ 5, R Knee: generally 4+/5; R hip AB 4/5 (07/11/20: HEP R ankle EV, DF TB #1). (07/18/21: R ankle: PF/IV is 5 /5 & DF/EV is 3-/5; R knee: Flex 3+/5, Ext 5/5; Hip AB 3-/ 5), (08/22/21: R ankle: PF/IV is 5 /5 & DF/EV is 3/5; R knee: Flex 3+/5, Ext 5/5; Hip AB 3-/ 5), STG Duration 11/16/21 (08/22/21: Improved in R ankle DF & EV strength 1/ 2 grade.) Douper Goal (LTG) Increase R LE strength with pt able to lift self into bed at end of day with use of R leg. 07/11/20: GOAL MET: pt reports is able to lift RLE into bed now without UE support. (07/18/21: Able to boost self into bed 75% of the time.) LTG Duration 07/11/20 GOAL MET One Impairment HEP Impairment Pt goals received 05/30/21: Strengthen legs (R) & upper body; Hips feel like in alignment after sitting (R hip feels like it is forward). Short Term Goal (STG) Pt will be independent with a self care HEP of hip/knee/ ankle strengthening exercises. (05/30/21: HEP issued for hip and knee flex strengthening, STS without UE support) (06/08/21: Strengthening: Added HEP hip AB; 06/13/21: Added hip Ext. ABD 06/15/21: Added trunk rot) 06/22/21: added R ankle TB PF/ Eccentric DF, EV. (07/18/21: Verbal review of HEP of hip/knee/ankle ex's) STG Duration 06/23/21 (07/18/21: MET GOAL) Douper Goal (LTG) Pt will be independent with a self care HEP of core strengthening exercises. (06/19/21: Core strengthening ex HEP issued) (07/20/21: Added HEP trunk flex) 08/17/21: R hip flexion/ eccentric lower seated, able get up from laying down positioning w/ hands. seated TB DF, EV. LE/ Core Step up/ downs w/ BHR, corner balance NBOS, stagger. 08/24/21: added side(reverse) & clamshell. Continue seated ankle TB #2, eccentric hip flexion, seated TB trunk flex/ ext/ rotate/ SB; stand: HS curl, side stepping, step up/ downs, STS etc. 09/28/21: pt performing seated resisted trunk rotation/SB, standing march, hip flex/ ER AROM, seated HS curl, side stepping, up/ down step w/ handle support. 10/10/21: progressing: focused on corner balance: NBOS andstagger 30s EC, tandem EO HT only partial R unable turn R. Cued tall alignment, core and hip glut fac, improved stability for confidence for home carryover. LTG Duration 12/18/21 (10/10/21: progressing ) Assessment Summary Assessment Vestibular testing largely inconclusive. Signs of some centrally caused vertigo, like 1? right gaze nystagmus with fixation and spontaneous nystagmus, as would be expected with her MS history. Pt's subjective complaints are suggestive of potential BPPV, however positional testing was negative today. Due to waxing/waning nature of BPPV, a single negative test does not necessarily rule it in or out, pt will benefit from further testing in the future to help determine if there is a peripheral component, or if her vertigo is just a result of MS. Physical Therapy Plan Frequency and Duration Frequency of Treatment 2x/Week Plan of Care Start Date 09/19/21 Plan of Care End Date 12/18/21 Next Visit Focus/Plan Next Note Type Treatment Note Next Visit Plan Recheck when last Dr goldstein. Pt wants continue 1x/wk for progress balance and dynamic surface gait for decrease falls after return from trip. POC: Recheck R LE marching motion & knee flexion seated HEP and standing pre gait for foot clearance. Progress endurance with UBE at end of therapy. Recheck hip strength (ext, AB, AD) & HEP, gastroc stretch. Strengthen R knee flex, R ankle DF & EV, improve ROM of R ankle EV. Continue: standing balance saran stepping, NBOS and on soft surfaces, gait w/ SPC. Continue Strengthening: R Hip ER/R IR; R Knee flex in range of 90-125 deg's, remind pt HEP: ankle DF along with improved mobility. POC: Continue balance training and uneven surfaces gait. Focus on neuro-reeducation for balance and improving stability/safety with gait (on soft/uneven surface), improving stamina & functional strength of RLE.
--- NOTE | 2021-11-09 11:20 | PT.OTN ---
Current Diagnoses Major depressive disorder, single episode, in full remission (11/07/21) Multiple sclerosis (11/07/21) Muscle weakness (generalized) (11/07/21) Age-related osteoporosis without current pathological fracture (11/07/21) Unspecified abnormalities of gait and mobility (11/07/21) Dizziness and giddiness (11/07/21) Physical Therapy Treatment Note PT-OP-A Visit Information Start: 05/23/21 18:50 Freq: Status: Active Protocol: Document 11/09/21 10:34 LRN (Rec: 11/09/21 11:19 LRN [id number]) Out-Patient Physical Therapy Visit Information Visit Information Visit Type Treatment Note Visit Start Time 10:34 Visit Stop Time 10:49 Total Visit Minutes 15 Visit Number 34 Evaluation Information Evaluation Date 05/25/21 Precautions Precautions Multiple Sclerosis, Osteoporosis, Dizziness, back pain. R handed. Has life alerts. PT-OP-B Current Condition Start: 05/23/21 18:50 Freq: Status: Active Protocol: Document 11/07/21 11:15 DCW (Rec: 11/07/21 11:59 DCW [id number]) Current Condition History of Current Condition Onset Date 17 yrs ago. Current Complaints Progressive weakness of RLE, since dx'd with MS; spasticity of lisbet LE R>L History of Current Condition Pt reports R foot drop and LE weakness due to MS with R foot dragging for past 10-15 yrs. Has had MS since ~1971, started with numb patches in the legs and clumsy. She has had an AFO for the R ankle foot for 5 yrs ago and wears it intermittently because she can only wear it with one pair of shoes. Pt did not wear the AFO today. States her primary care physician sent her to PT at her request due to having had PT several years ago with [facility]. Neurologist, Natalya Stewart is planning on having her fit for another AFO on R LE that will help her to move the R LE (keep the foot straight and help to raise the foot). Pt reports she sometimes gets dizzy causing LOB without falls. Daughter calls her daily. 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 Symptoms last ~5 seconds, she feels it largely occurs with changing her position or turning quickly. Prior Treatments and Tests Sees chiropractor every other week. Future Testing and Treatments Planned Fit for RLE brace/AFO; company to contact her within 2-3 weeks. PT-OP-C Subjective Start: 05/23/21 18:50 Freq: Status: Active Protocol: Document 11/09/21 10:34 LRN (Rec: 11/09/21 11:19 LRN [id number]) OP-PT Subjective Patient Comments Patient Comments States yesterday morning did ex's, while doing clamshell and reverse clamshell something didn't feel right, whole body alignment wasn't right. She states by the time she got off the floor and doing balance ex's, the bottoms of the feet to the knees was burning and she feels her neck is out, very stiff and sore. Has happened before and believes her back and neck (atlas/axis is out). Pt refused cervical assessment. Has been in bed taking ms relaxors. States this has happened before and what works is a lot of rest and use of Dilauded. States she was concerned of being charged a PT fee for cancelling in <24 hrs; therefore she is attending, but doesn't feel good. Requests no treatment, just subjective history and minimal assessment. She reports on her recent trip she was able to get up/down from chairs and toilets without difficulty and notes she has improved much with therapy, but is not feeling good currently. PT-OP-D Balance Start: 05/23/21 18:50 Freq: Status: Active Protocol: Document 09/19/21 10:30 LRN (Rec: 09/19/21 12:25 LRN [id number]) Balance Tests Other Other Balance Tests Performed EO on solid surface: 60 secs EC on solid surface: 60 secs EO on soft surface (blue foam) : 60 secs EC on soft surface (blue foam) : 1 sec PT-OP-E Functional Tests Start: 05/23/21 18:50 Freq: Status: Active Protocol: Document 11/09/21 10:34 LRN (Rec: 11/09/21 11:19 LRN [id number]) Functional Tests Timed Up and Go (TUG) Score 43 Comments SPC, no AFO, onset of burning in feet, plantar aspect. TUG Impairment Rating 100% Impaired (Score 20) PT-OP-G Mobility & Gait Start: 05/23/21 18:50 Freq: Status: Active Protocol: Document 08/22/21 10:38 LRN (Rec: 08/22/21 12:20 LRN [id number]) OP Gait Assessment Gait Gait Assistance Required: Independent Distance (Feet) 100 Assistive Devices Assistive Device Straight Cane Gait Deviations General Gait Pattern Decreased Stride Length, Lateral Trunk Lean Factors Limiting Gait Function Factors Limiting Gait Function Abnormal Tonal Influences, Decreased Strength,Poor Balance Comments Gait Comments R AFO improves ankle position, but noted R ankle IV's on stance phase. PT-OP-J Posture/Palpation/Skin Start: 05/23/21 18:50 Freq: Status: Active Protocol: Document 05/25/21 11:23 LRN (Rec: 05/25/21 12:06 LRN [id number]) Posture Evaluation Position Standing Head/C-Spine Posture Forward Head Shoulder Posture (L) Elevated Knee Posture (L) Excess Flexion Ankle/Foot Posture (R) Supinated,(R) Calcaneal Inversion Comments Posture Comments L leg long, holds knee flexed. When R knee is straight, the pelvis rotates right. Slight curve of back with apex on the left. PT-OP-K Range of Motion Start: 05/23/21 18:50 Freq: Status: Active Protocol: Document 07/18/21 12:51 LRN (Rec: 07/18/21 13:37 LRN [id number]) Ankle and Foot Goniometric Range of Motion Ankle and Foot Left Active Ankle/Foot ROM WFL Yes Testing Position Sitting Dorsiflexion with Knee Flexed 7 Inversion 30 Eversion 30 Right Active Ankle/Foot ROM WFL No Testing Position Sitting Inversion 35 Eversion 10 Comments Ankle DF with knee flexed is lacking 5 deg's to neutral. PT-OP-M Strength Start: 05/23/21 18:50 Freq: Status: Active Protocol: Document 08/22/21 10:38 LRN (Rec: 08/22/21 12:20 LRN [id number]) Hip Strength Hip Manual Muscle Testing Right Flexion (L2) 5 Normal External Rotation 3+ Fair+ Internal Rotation 3+ Fair+ Left Flexion (L2) 5 Normal Extension (S1) 5 Normal Abduction 5 Normal Adduction 5 Normal External Rotation 5 Normal Internal Rotation 4+ Good+ Knee Strength Knee Manual Muscle Testing Right Flexion (S2) 3+ Fair+ Extension (L3) 5 Normal Left Flexion (S2) 5 Normal Extension (L3) 5 Normal PT-OP-O Vestibular Start: 11/07/21 11:24 Freq: Status: Active Protocol: Document 11/07/21 11:15 DCW (Rec: 11/07/21 11:59 DCW [id number]) Vestibular Assessment Auditory Tests Englihs Test Within normal limits Rinne Test Negative Air Conduction Results Right Greater Visual Testing Smooth Pursuits Horizontal WNL Smooth Pursuits Vertical WNL Saccades Horizontal WNL Gaze Evoked Nystagmus With Fixation 1 deg R Gaze Evoked Nystagmus Without Fixation Negative Heave Test Positive Right Thrust Head Positive Right Spontaneous Nystagmus Positive Positional Testing Magaly-Hallpike Negative Left,Negative Right Rolling Test Negative Left,Negative Right PT-OP-Q Treatments Start: 05/23/21 18:50 Freq: Status: Active Protocol: Document 11/09/21 10:34 LRN (Rec: 11/09/21 11:19 LRN [id number]) Gait Training Gait Activity Use of cane Description Gait training with use of R SPC Device Used SPC Level of Assistance SBA>CGA Surface Level Distance/Duration 70', 20', 20' Treatment Focus Limiting R knee hyper ext and R foot supination, balance/ stability Comments Pt did not wear R AFO; therefore I/S pt to wear AFO when out walking. Cautioned pt that without AFO her R knee hyperextends and foot PF's increasing her risk of falling due to toes catching on the ground. V cuing during gait. Pt not able to keep R knee from hyperextending without increase in sway occuring. Discussed that pt needs to use FWW when feeling poorly due to increased risk of falling. TUG score of 43 secs ( Self-Care/Home Management Treatment Education Patient Education Safety Other Education Discussed when pt feeling poorly with decreased balance and not wanting to attend therapy to place safety first since she lives alone and must drive to therapy. Discussed alternatives to her concern over missing appointment both financially and insurance related. Assured pt it is more important to do what is safe for her well being. PT-OP-T Assessment and Plan Start: 05/23/21 18:50 Freq: Status: Active Protocol: Document 11/09/21 10:34 LRN (Rec: 11/09/21 11:19 LRN [id number]) Physical Therapy Assessment Goals Decreased balance on unlevel surfaces. Impairment Decreased balance on unlevel surface. Impairment EC on soft surface standing feet together: 1 sec EC on solid surface standing feet together: 60+ secs Snf Goal (LTG) Improve pt's balance on soft/ uneven surfaces with pt able to walk on part of [place] with cane/R AFO independently and with increased confidence in safety with gait and no loss of balance. 09/26/21: see 09/26 note with uneven surface gait w/SPC. 10/10/21: improved soft suface gait w/ SPC (blue mat) inially 5%A then improved w/ SPC and cues increase ARMANDO approx 3 between BLE (no AFO/maccasins on today), assimulate home thick carpet. LTG Duration 12/18/21 (10/10/21: progressing) Seven Impairment Increased sway with turning generally 2x/week. Impairment Near fall with turning ~2x/ week. Short Term Goal (STG) Vestibular assessment for inner ear dysfunction causing dizziness on turning. 09/28/21: pt has appt on 11/07/21 with Vestibular PT. STG Duration 11/16/21 (VPT appt 11/07/21) Snf Goal (LTG) Pt able to turn with confidence and abby near fall episodes to no more than 1-2/ month. LTG Duration 12/18/21 Six Impairment Decreased functional strength Impairment Pt has difficulty raising R leg to put leg in pants. 08/10/21: pt states still bending over and putting on pants. Suggested Cross RLE over L place pant on foot then eccentrically lower RLE into pant leg for added strengthening. 08/17/21: pt states can't miantain RLE ankle on LLE put pants on so crosses RLE over LLE and puts on. Is doing hip flexion lift ex. Depending upon what chair sit in can hold RLE ankle over LLE to put on pants and ease slow RLE to floor as pull pants up R leg. Transformer Assembler Goal (LTG) Pt will be able to lift R leg (in sitting) for ease of dressing (to put leg in pants) . 08/10/21: Progressing can lift RLE off ground about 5 inches intially then as reps progress not as high but only hold 2 sec before need to slow lower. 08/17/21: lift up 3 then slowly lower (AFO and shoe on, performed after 6MWT). (08/22/21: Pt able to lift R leg with assist of her UE's to place R knee over the L knee, but pt has difficulty keeping her R knee in place) 09/12/21: able to put RLE over L to put on pants and not have to hold as hard, staying better. (09/28/21: progressing: pt ableto complete R hip flexion/ ER AROM foot little higher than mid morocho 2x10 reps today wtihout UE assist). (10/12/21: Pt able to lift RLE onto L knee to put socks/shoes on. Somedays not as successful as other days). LTG Duration 12/18/21 (10/12/21 MET GOAL) Five Impairment Decreased stamina Short Term Goal (STG) Pt will be able to tolerate 10 minutes of upper body strengthening during a 38 miniute therapy session. 08/17/21: performed/ reviewed end tx didn't time. 08/22/21: UBE x 4' & 90 rpm. 09/12/21: scifit: 6 min UE/LEs 09/19/21: Biodex x 8' UE/LEs 09/28/21: scifit x8 min LEs only 2.5 resistance, UBE 4 min at 105 resistance. 10/10/21: scifit 8 min LEs 2.5 resistance, 6 min UBE 105 resistance STG Duration 11/16/21 (10/10/21: Progressed ) Transformer Assembler Goal (LTG) Pt will have greater confidence in her walking as demonstrated by improved TUG score of 14 or less. (07/18/21: TUG 22 secs w/AFO/ cane. 05/30/21: TUG 15 w/ AFO/cane). 09/12/21: GOAL MET: TUG 16s, 13s , 13s=20-40% impaired improved from 15 on 05/30/21. LTG Duration 11/20/21 (09/12/21: MET GOAL) Four Impairment Gait dysfunction Impairment R foot drop with occasional catching of toes. Short Term Goal (STG) Increase R hip/knee/ankle strength by 1/2 grade. (07/18/21: NOT MET for: R Hip ER/IR; R Knee flex) (08/22/21: R hip ER 3+/5, IR is 3/5; initially was ER 3/5, IR 3+/5. R knee flex same at 3+/5) STG Duration 11/16/21 (07/18/21: Goal mostly met) Snf Goal (LTG) Legs not as tired at the end of the day with pt able to take her dog on a longer walk to end of block and back. 07/11/20: Pt only able to walk dog out to go to bathroom with cold bad weather, pre bad weather only able walk dog 3 [address] and back, uses SPC in LUE. PLOF reported during good weather days was able to walk approx total 1/4 mile. 08/22/21: Legs not too tired at the end of the day and walks dog 2-3x/day and can walk her dog to the end of the block and back. (09/19/21: 1x/week doing a long walk of 1+mile, usually early afternoon). LTG Duration 10/16/21 (08/22/21: MET GOAL) Two Impairment Decreased R LE strength Impairment Hip: Flexion 5/5 L, 4+/5 R; ER 3-/5 R, 2/5 L; IR 4+/5 bilaterally. Knee: Flex: 4/5 bilaterally; Ext: 3+/5 R, 5/5 L Ankle: Left: generally 5/5; Right: DF 2+/5, PF 3+/5, IV 3/ 5, EV 2/5. Short Term Goal (STG) Improve R ankle: generally 3+/ 5, R Knee: generally 4+/5; R hip AB 4/5 (07/11/20: HEP R ankle EV, DF TB #1). (07/18/21: R ankle: PF/IV is 5 /5 & DF/EV is 3-/5; R knee: Flex 3+/5, Ext 5/5; Hip AB 3-/ 5), (08/22/21: R ankle: PF/IV is 5 /5 & DF/EV is 3/5; R knee: Flex 3+/5, Ext 5/5; Hip AB 3-/ 5), STG Duration 11/16/21 (08/22/21: Improved in R ankle DF & EV strength 1/ 2 grade.) Transformer Assembler Goal (LTG) Increase R LE strength with pt able to lift self into bed at end of day with use of R leg. 07/11/20: GOAL MET: pt reports is able to lift RLE into bed now without UE support. (07/18/21: Able to boost self into bed 75% of the time.) LTG Duration 07/11/20 GOAL MET One Impairment HEP Impairment Pt goals received 05/30/21: Strengthen legs (R) & upper body; Hips feel like in alignment after sitting (R hip feels like it is forward). Short Term Goal (STG) Pt will be independent with a self care HEP of hip/knee/ ankle strengthening exercises. (05/30/21: HEP issued for hip and knee flex strengthening, STS without UE support) (06/08/21: Strengthening: Added HEP hip AB; 06/13/21: Added hip Ext. ABD 06/15/21: Added trunk rot) 06/22/21: added R ankle TB PF/ Eccentric DF, EV. (07/18/21: Verbal review of HEP of hip/knee/ankle ex's) STG Duration 06/23/21 (07/18/21: MET GOAL) Snf Goal (LTG) Pt will be independent with a self care HEP of core strengthening exercises. (06/19/21: Core strengthening ex HEP issued) (07/20/21: Added HEP trunk flex) 08/17/21: R hip flexion/ eccentric lower seated, able get up from laying down positioning w/ hands. seated TB DF, EV. LE/ Core Step up/ downs w/ BHR, corner balance NBOS, stagger. 08/24/21: added side(reverse) & clamshell. Continue seated ankle TB #2, eccentric hip flexion, seated TB trunk flex/ ext/ rotate/ SB; stand: HS curl, side stepping, step up/ downs, STS etc. 09/28/21: pt performing seated resisted trunk rotation/SB, standing september, hip flex/ ER AROM, seated HS curl, side stepping, up/ down step w/ handle support. 10/10/21: progressing: focused on corner balance: NBOS andstagger 30s EC, tandem EO HT only partial R unable turn R. Cued tall alignment, core and hip glut fac, improved stability for confidence for home carryover. LTG Duration 12/18/21 (10/10/21: progressing ) Progress Towards Goals Progress Towards Goals Slow Progress due to Activity Tolerance Assessment Summary Assessment Pt attends in a flared up state since yesterday of feet/ LE burning pain, poor endurance, decreased balance and stability with gait, and decreased tolerance to activity. The pt had been doing well with reports of recent trip being able to transfer without difficulty from chairs & toilets, but today she demonstrates TUG of 43 secs, 100% impairment (was 13-16 secs, 20-60% impaired) with use of SPC and no R AFO. The pt demonstrates poor walking mechanics of excessive weight shift and heavy use of SPC, R knee hyperext and R foot greater pronation (note: pt wearing R AFO). Pt did not want treatment due to feeling poorly and needing to drive home and she plans to self care treat in a manner that has worked in the past with similiar onset occurance (rest and Dilauded). Pt appears to understand she should cancel appointments if she feels too poorly, if it is the same day and that charges can be discussed. Physical Therapy Plan Frequency and Duration Frequency of Treatment 2x/Week Plan of Care Start Date 09/19/21 Plan of Care End Date 12/18/21 Next Visit Focus/Plan Next Note Type Treatment Note Next Visit Plan Recheck recover from recent LE flare up of LE feet/leg pain and recheck when is last Dr goldstein. Continue 1x/wk for progress balance and dynamic surface gait for decrease falls after return from trip. POC: Recheck R LE marching motion & knee flexion seated HEP and standing pre gait for foot clearance. Progress endurance with UBE at end of therapy. Recheck hip strength (ext, AB, AD) & HEP, gastroc stretch. Strengthen R knee flex, R ankle DF & EV, improve ROM of R ankle EV. Continue: standing balance saran stepping, NBOS and on soft surfaces, gait w/ SPC. Continue Strengthening: R Hip ER/R IR; R Knee flex in range of 90-125 deg's, remind pt HEP: ankle DF along with improved mobility. POC: Continue balance training and uneven surfaces gait. Focus on neuro-reeducation for balance and improving stability/safety with gait (on soft/uneven surface), improving stamina & functional strength of RLE.
--- NOTE | 2021-11-16 13:00 | PT.OTN ---
Current Diagnoses Major depressive disorder, single episode, in full remission (11/16/21) Multiple sclerosis (11/16/21) Muscle weakness (generalized) (11/16/21) Age-related osteoporosis without current pathological fracture (11/16/21) Unspecified abnormalities of gait and mobility (11/16/21) Dizziness and giddiness (11/16/21) Physical Therapy Treatment Note PT-OP-A Visit Information Start: 05/23/21 18:50 Freq: Status: Active Protocol: Document 11/16/21 12:15 SP (Rec: 11/16/21 13:03 SP [id number]) Out-Patient Physical Therapy Visit Information Visit Information Visit Type Treatment Note Visit Start Time 12:15 Visit Stop Time 13:00 Total Visit Minutes 45 Visit Number 35 Number of FUR TRAPPER Visits 1 Evaluation Information Evaluation Date 05/25/21 Precautions Precautions Multiple Sclerosis, Osteoporosis, Dizziness, back pain. R handed. Has life alerts. PT-OP-B Current Condition Start: 05/23/21 18:50 Freq: Status: Active Protocol: Document 11/07/21 11:15 DCW (Rec: 11/07/21 11:59 DCW [id number]) Current Condition History of Current Condition Onset Date 17 yrs ago. Current Complaints Progressive weakness of RLE, since dx'd with MS; spasticity of lisbet LE R>L History of Current Condition Pt reports R foot drop and LE weakness due to MS with R foot dragging for past 10-15 yrs. Has had MS since ~1971, started with numb patches in the legs and clumsy. She has had an AFO for the R ankle foot for 5 yrs ago and wears it intermittently because she can only wear it with one pair of shoes. Pt did not wear the AFO today. States her primary care physician sent her to PT at her request due to having had PT several years ago with Rojelio Slaughter, PT. Neurologist, Natalya Stewart is planning on having her fit for another AFO on R LE that will help her to move the R LE (keep the foot straight and help to raise the foot). Pt reports she sometimes gets dizzy causing LOB without falls. Daughter calls her daily. 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 Symptoms last ~5 seconds, she feels it largely occurs with changing her position or turning quickly. Prior Treatments and Tests Sees chiropractor every other week. Future Testing and Treatments Planned Fit for RLE brace/AFO; company to contact her within 2-3 weeks. PT-OP-C Subjective Start: 05/23/21 18:50 Freq: Status: Active Protocol: Document 11/16/21 12:15 SP (Rec: 11/16/21 13:03 SP [id number]) OP-PT Subjective Patient Comments Patient Comments Pt stated feeling alot better, reports has been coming to therapy for a while, balance not as great as would like but has alot exercises can do and wants to do on her own. She wants to be sure has a sufficient stretching HEP during tx today to decrease tightness has throughout body. She reiterated as in last 2 txs since returned from vacation, wondering if when performed clamshell/reverse clamshell after returning from vacation and still recovering from a nearfall sternum hitting the dresser while on vacation flared up her body. She wonders if also tweek/ stressed her neck with the exercises. She says maybe why not did well last tx but feels thinks well on way recovery, able walk better with AFO and SPC today, demonstrates locked RLE in midstance. Pt reviewed with FUR TRAPPER, when on vacation in [place], was walking in middle of night from bedroom to bathroom while trying to maintain her keigle to hold urine and fell forward on to dresser into sternum. She stated didnt go see anyone, got better within 2 full days to return home. PT-OP-D Balance Start: 05/23/21 18:50 Freq: Status: Active Protocol: Document 09/19/21 10:30 LRN (Rec: 09/19/21 12:25 LRN [id number]) Balance Tests Other Other Balance Tests Performed EO on solid surface: 60 secs EC on solid surface: 60 secs EO on soft surface (blue foam) : 60 secs EC on soft surface (blue foam) : 1 sec PT-OP-E Functional Tests Start: 05/23/21 18:50 Freq: Status: Active Protocol: Document 11/09/21 10:34 LRN (Rec: 11/09/21 11:19 LRN [id number]) Functional Tests Timed Up and Go (TUG) Score 43 Comments SPC, no AFO, onset of burning in feet, plantar aspect. TUG Impairment Rating 100% Impaired (Score 20) PT-OP-G Mobility & Gait Start: 05/23/21 18:50 Freq: Status: Active Protocol: Document 08/22/21 10:38 LRN (Rec: 08/22/21 12:20 LRN [id number]) OP Gait Assessment Gait Gait Assistance Required: Independent Distance (Feet) 100 Assistive Devices Assistive Device Straight Cane Gait Deviations General Gait Pattern Decreased Stride Length, Lateral Trunk Lean Factors Limiting Gait Function Factors Limiting Gait Function Abnormal Tonal Influences, Decreased Strength,Poor Balance Comments Gait Comments R AFO improves ankle position, but noted R ankle IV's on stance phase. PT-OP-J Posture/Palpation/Skin Start: 05/23/21 18:50 Freq: Status: Active Protocol: Document 05/25/21 11:23 LRN (Rec: 05/25/21 12:06 LRN [id number]) Posture Evaluation Position Standing Head/C-Spine Posture Forward Head Shoulder Posture (L) Elevated Knee Posture (L) Excess Flexion Ankle/Foot Posture (R) Supinated,(R) Calcaneal Inversion Comments Posture Comments L leg long, holds knee flexed. When R knee is straight, the pelvis rotates right. Slight curve of back with apex on the left. PT-OP-K Range of Motion Start: 05/23/21 18:50 Freq: Status: Active Protocol: Document 07/18/21 12:51 LRN (Rec: 07/18/21 13:37 LRN [id number]) Ankle and Foot Goniometric Range of Motion Ankle and Foot Left Active Ankle/Foot ROM WFL Yes Testing Position Sitting Dorsiflexion with Knee Flexed 7 Inversion 30 Eversion 30 Right Active Ankle/Foot ROM WFL No Testing Position Sitting Inversion 35 Eversion 10 Comments Ankle DF with knee flexed is lacking 5 deg's to neutral. PT-OP-M Strength Start: 05/23/21 18:50 Freq: Status: Active Protocol: Document 08/22/21 10:38 LRN (Rec: 08/22/21 12:20 LRN [id number]) Hip Strength Hip Manual Muscle Testing Right Flexion (L2) 5 Normal External Rotation 3+ Fair+ Internal Rotation 3+ Fair+ Left Flexion (L2) 5 Normal Extension (S1) 5 Normal Abduction 5 Normal Adduction 5 Normal External Rotation 5 Normal Internal Rotation 4+ Good+ Knee Strength Knee Manual Muscle Testing Right Flexion (S2) 3+ Fair+ Extension (L3) 5 Normal Left Flexion (S2) 5 Normal Extension (L3) 5 Normal PT-OP-O Vestibular Start: 11/07/21 11:24 Freq: Status: Active Protocol: Document 11/07/21 11:15 DCW (Rec: 11/07/21 11:59 DCW [id number]) Vestibular Assessment Auditory Tests English Test Within normal limits Rinne Test Negative Air Conduction Results Right Greater Visual Testing Smooth Pursuits Horizontal WNL Smooth Pursuits Vertical WNL Saccades Horizontal WNL Gaze Evoked Nystagmus With Fixation 1 deg R Gaze Evoked Nystagmus Without Fixation Negative Heave Test Positive Right Thrust Head Positive Right Spontaneous Nystagmus Positive Positional Testing [place] Negative Left,Negative Right Rolling Test Negative Left,Negative Right PT-OP-Q Treatments Start: 05/23/21 18:50 Freq: Status: Active Protocol: Document 11/16/21 12:15 SP (Rec: 11/16/21 13:03 SP [id number]) Cardio Equipment Recumbent Elliptical ([employer]Learning) Duration (Minutes) 8 Resistance 2 Seat Position 8 Other 40-45 RPM, 650 total steps, UE / LEs Therapeutic Exercises Supine Exercises stretching/breath/ relaxation Supine Exercise Name pec stretch, reaching over head, snow augusto. Reps/Minutes pec stretch slow breath arms outside 5 breath Comments reach FF OH x5, snow augusto x5- cued slow gentle ROM Sidelying Exercises Reverse Clamshell Sidelying Exercise Name Reverse Clamshell- added to HEP Side right Equipment Used not needed pillow between B knees Reps/Minutes x4 Comments AFO/Shoe donned this tx, good set up/ form, cued eccentric control Clamshell Sidelying Exercise Name Clamshell- added to HEP Side right Resistance AROM Equipment Used not needed pillow between B knees Reps/Minutes 2x8 Comments improved stacked trunk on side , TA fac and no rolling back, slow eccentric Sitting Exercises HS and piriformis stretch Sitting Exercise Name HS and piriformis stretch Side right Equipment Used seated on stationary chair Reps/Minutes 60, recommended 3x/day previous tx Comments R hip ER tighter than L. Gait Training Gait Activity Gait with SPC/R AFO Description moved lateral wedge under AFO for ankle stability Device Used SPC, GB, RLE AFO plus lat wedge Level of Assistance CGA Surface Level Distance/Duration 100 ft, 80 ft Treatment Focus stability, balance recovery Comments occasional cue for RLE knee/ hip flexion to allow R foot clearance. Pt reported wanted to change shoe lacing to assist heel support in shoe knowing higher lift, improved. Noted improved ankle stability neutral positioning during R heel strike>midstance . Neuro Re-Education Treatment Balance Activities corner balance Details stagger Surface firm Equipment corner at back, back of chair at front for steady balance Comments Stagger: EC B foot position veryslight sway no LOB, much improvement this tx. Side stepping Details Sidestepping light contact 1 UE Surface Level, firm Equipment bar Reps/Duration 2x Comments cuing to keep hips forward, tall posture, R soft knee during midstance phase. pt moves slowly and purposely, good form. Self-Care/Home Management Treatment Education Patient Education Safety Other Education Education of importance of further medical assessment for neck, sternum, ribcage if needed for safety. Pt verbalized understanding but stated, it's alot better, bruising gone, arm scrap gone and doesn't hurt to breath, I think I'm ok now. FUR TRAPPER also ed for breath, gentle UE ROM and LE stretching to HEP to allow body system to relax and decrease tension when needed, sufficed pt's arrival request. PT-OP-T Assessment and Plan Start: 05/23/21 18:50 Freq: Status: Active Protocol: Document 11/16/21 12:15 SP (Rec: 11/16/21 13:03 SP [id number]) Physical Therapy Assessment Goals Decreased balance on unlevel surfaces. Impairment Decreased balance on unlevel surface. Impairment EC on soft surface standing feet together: 1 sec EC on solid surface standing feet together: 60+ secs Long-Term Goal (LTG) Improve pt's balance on soft/ uneven surfaces with pt able to walk on part of [place] with cane/R AFO independently and with increased confidence in safety with gait and no loss of balance. 09/26/21: see 09/26 note with uneven surface gait w/SPC. 10/10/21: improved soft suface gait w/ SPC (blue mat) initally 5%A then improved w/ SPC and cues increase ARMANDO approx 3 between BLE (no AFO/ maccasins on today), assimulate home thick carpet. LTG Duration 12/18/21 (10/10/21: progressing) Seven Impairment Increased sway with turning generally 2x/week. Impairment Near fall with turning ~2x/ week. Short Term Goal (STG) Vestibular assessment for inner ear dysfunction causing dizziness on turning. 09/28/21: pt has appt on 11/07/21 with Vestibular PT. STG Duration 11/16/21 (VPT appt 11/07/21) Long-Term Goal (LTG) Pt able to turn with confidence and abby near fall episodes to no more than 1-2/ month. LTG Duration 12/18/21 Six Impairment Decreased functional strength Impairment Pt has difficulty raising R leg to put leg in pants. 08/10/21: pt states still bending over and putting on pants. Suggested Cross RLE over L place pant on foot then eccentrically lower RLE into pant leg for added strengthening. 08/17/21: pt states can't miantain RLE ankle on LLE put pants on so crosses RLE over LLE and puts on. Is doing hip flexion lift ex. Depending upon what chair sit in can hold RLE ankle over LLE to put on pants and ease slow RLE to floor as pull pants up R leg. Long-Term Goal (LTG) Pt will be able to lift R leg (in sitting) for ease of dressing (to put leg in pants) . 08/10/21: Progressing can lift RLE off ground about 5 inches intially then as reps progress not as high but only hold 2 sec before need to slow lower. 08/17/21: lift up 3 then slowly lower (AFO and shoe on, performed after 6MWT). (08/22/21: Pt able to lift R leg with assist of her UE's to place R knee over the L knee, but pt has difficulty keeping her R knee in place) 09/12/21: able to put RLE over L to put on pants and not have to hold as hard, staying better. (09/28/21: progressing: pt ableto complete R hip flexion/ ER AROM foot little higher than mid morocho 2x10 reps today wtihout UE assist). (10/12/21: Pt able to lift RLE onto L knee to put socks/shoes on. Somedays not as successful as other days). LTG Duration 12/18/21 (10/12/21 MET GOAL) Five Impairment Decreased stamina Short Term Goal (STG) Pt will be able to tolerate 10 minutes of upper body strengthening during a 38 miniute therapy session. 08/17/21: performed/ reviewed end tx didn't time. 08/22/21: UBE x 4' & 90 rpm. 09/12/21: scifit: 6 min UE/LEs 09/19/21: Biodex x 8' UE/LEs 09/28/21: scifit x8 min LEs only 2.5 resistance, UBE 4 min at 105 resistance. 10/10/21: scifit 8 min LEs 2.5 resistance, 6 min UBE 105 resistance 11/16/21: pt tolerated BUE& BLE together 10 min biodex this tx, not enough time to do UE individually. STG Duration 11/16/21 ( 11/16/21: Progressed) Long-Term Goal (LTG) Pt will have greater confidence in her walking as demonstrated by improved TUG score of 14 or less. (07/18/21: TUG 22 secs w/AFO/ cane. 05/30/21: TUG 15 w/ AFO/cane). 09/12/21: GOAL MET: TUG 16s, 13s , 13s=20-40% impaired improved from 15 on 05/30/21. LTG Duration 11/20/21 (09/12/21: MET GOAL) Four Impairment Gait dysfunction Impairment R foot drop with occasional catching of toes. Short Term Goal (STG) Increase R hip/knee/ankle strength by 1/2 grade. (07/18/21: NOT MET for: R Hip ER/IR; R Knee flex) (08/22/21: R hip ER 3+/5, IR is 3/5; initially was ER 3/5, IR 3+/5. R knee flex same at 3+/5) STG Duration 11/16/21 (07/18/21: Goal mostly met) Bus Cleaner Goal (LTG) Legs not as tired at the end of the day with pt able to take her dog on a longer walk to end of block and back. 07/11/20: Pt only able to walk dog out to go to bathroom with cold bad weather, pre bad weather only able walk dog 3 [address] and back, uses SPC in LUE. PLOF reported during good weather days was able to walk approx total 1/4 mile. 08/22/21: Legs not too tired at the end of the day and walks dog 2-3x/day and can walk her dog to the end of the block and back. (09/19/21: 1x/week doing a long walk of 1+mile, usually early afternoon). LTG Duration 10/16/21 (08/22/21: MET GOAL) Two Impairment Decreased R LE strength Impairment Hip: Flexion 5/5 L, 4+/5 R; ER 3-/5 R, 2/5 L; IR 4+/5 bilaterally. Knee: Flex: 4/5 bilaterally; Ext: 3+/5 R, 5/5 L Ankle: Left: generally 5/5; Right: DF 2+/5, PF 3+/5, IV 3/ 5, EV 2/5. Short Term Goal (STG) Improve R ankle: generally 3+/ 5, R Knee: generally 4+/5; R hip AB 4/5 (07/11/20: HEP R ankle EV, DF TB #1). (07/18/21: R ankle: PF/IV is 5 /5 & DF/EV is 3-/5; R knee: Flex 3+/5, Ext 5/5; Hip AB 3-/ 5), (08/22/21: R ankle: PF/IV is 5 /5 & DF/EV is 3/5; R knee: Flex 3+/5, Ext 5/5; Hip AB 3-/ 5), STG Duration 11/16/21 (08/22/21: Improved in R ankle DF & EV strength 1/ 2 grade.) Bus Cleaner Goal (LTG) Increase R LE strength with pt able to lift self into bed at end of day with use of R leg. 07/11/20: GOAL MET: pt reports is able to lift RLE into bed now without UE support. (07/18/21: Able to boost self into bed 75% of the time.) LTG Duration 07/11/20 GOAL MET One Impairment HEP Impairment Pt goals received 05/30/21: Strengthen legs (R) & upper body; Hips feel like in alignment after sitting (R hip feels like it is forward). Short Term Goal (STG) Pt will be independent with a self care HEP of hip/knee/ ankle strengthening exercises. (05/30/21: HEP issued for hip and knee flex strengthening, STS without UE support) (06/08/21: Strengthening: Added HEP hip AB; 06/13/21: Added hip Ext. ABD 06/15/21: Added trunk rot) 06/22/21: added R ankle TB PF/ Eccentric DF, EV. (07/18/21: Verbal review of HEP of hip/knee/ankle ex's) STG Duration 06/23/21 (07/18/21: MET GOAL) Bus Cleaner Goal (LTG) Pt will be independent with a self care HEP of core strengthening exercises. (06/19/21: Core strengthening ex HEP issued) (07/20/21: Added HEP trunk flex) 08/17/21: R hip flexion/ eccentric lower seated, able get up from laying down positioning w/ hands. seated TB DF, EV. LE/ Core Step up/ downs w/ BHR, corner balance NBOS, stagger. 08/24/21: added side(reverse) & clamshell. Continue seated ankle TB #2, eccentric hip flexion, seated TB trunk flex/ ext/ rotate/ SB; stand: HS curl, side stepping, step up/ downs, STS etc. 09/28/21: pt performing seated resisted trunk rotation/SB, standing march, hip flex/ ER AROM, seated HS curl, side stepping, up/ down step w/ handle support. 10/10/21: progressing: focused on corner balance: NBOS andstagger 30s EC, Cued to hold off on tandem for safety. LTG Duration 12/18/21 (11/16/21: progressing) Assessment Summary Assessment Pt can place RLE onto opposite knee x2 reps, cued contact LE for allow stretching. Pt good demonstration and understanding of stretching HEP HOs reviewed past LE and added supine UE AROM and breath to improved upper body decrease tension for gait stability. Pt's R knee still moves into hyperextended positioning during midstance gait, improves with cues for soft knee and knee/ hip flexion vs hip hiking on R ( AFO donned) while using SPC and better self awareness of space between BLE for stability. Pt able to decrease lateral wt shift/ SB during side stepping, HEP review does at home. Pt improved stagger stance EC balance 30s light sways but self corrections with out support. Physical Therapy Plan Frequency and Duration Frequency of Treatment 2x/Week Plan of Care Start Date 09/19/21 Plan of Care End Date 12/18/21 Therapeutic Interventions Therapeutic Interventions Aquatic Therapy,Balance Training,Gait Training,Home Exercise Program,Manual Therapy,Neuromuscular Re- education,Patient/Caregiver Education,Self-Care/Home Management,Therapeutic Activities,Therapeutic Exercises Modalities Cold Pack/Ice Massage,Hot Packs Other Referrals/Consults Referrals/Consults Recommended FUR TRAPPER suggested in the future possible pelvic floor referral with report of hard time controlling urine retension on way to bathroom that affects gait, continue balance and gait to improve stability for safe community ambulation with walking dog longer distances. Discharge Physical Therapy Discharge Reasons Patient Request Discharge Comments Pt requested ready to discharge and doing HEP on own . Next Visit Focus/Plan Next Note Type Discharge Summary Next Visit Plan Pt cancelled all remaining appts.
--- NOTE | 2022-05-06 14:17 | PT.OPDS ---
Current Diagnoses Major depressive disorder, single episode, in full remission (11/16/21) Multiple sclerosis (11/16/21) Muscle weakness (generalized) (11/16/21) Age-related osteoporosis without current pathological fracture (11/16/21) Unspecified abnormalities of gait and mobility (11/16/21) Dizziness and giddiness (11/16/21) Visit Care Team Role Provider Type Erik Hernandez MD Attending Provider Physician Family Provider Primary Care Provider Referring Provider Specialty: Internal Medicine Address: [address] [place] [address], [facility] Email: [email or web address] Visit Number Visit Number [id number] Discharge Summary PT-OP-B Current Condition Start: 05/23/21 18:50 Freq: Status: Active Protocol: Document 11/07/21 11:15 DCW (Rec: 11/07/21 11:59 DCW [id number]) Current Condition History of Current Condition Onset Date 17 yrs ago. Current Complaints Progressive weakness of RLE, since dx'd with MS; spasticity of lisbet LE R>L History of Current Condition Pt reports R foot drop and LE weakness due to MS with R foot dragging for past 10-15 yrs. Has had MS since ~1971, started with numb patches in the legs and clumsy. She has had an AFO for the R ankle foot for 5 yrs ago and wears it intermittently because she can only wear it with one pair of shoes. Pt did not wear the AFO today. States her primary care physician sent her to PT at her request due to having had PT several years ago with [facility]. Neurologist, Radha Stewartagit [facility] is planning on having her fit for another AFO on R LE that will help her to move the R LE (keep the foot straight and help to raise the foot). Pt reports she sometimes gets dizzy causing LOB without falls. Daughter calls her daily. 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 Symptoms last ~5 seconds, she feels it largely occurs with changing her position or turning quickly. Prior Treatments and Tests Sees chiropractor every other week. Future Testing and Treatments Planned Fit for RLE brace/AFO; company to contact her within 2-3 weeks. PT-OP-C Subjective Start: 05/23/21 18:50 Freq: Status: Active Protocol: Document 11/16/21 12:15 SP (Rec: 11/16/21 13:03 SP [id number]) OP-PT Subjective Patient Comments Patient Comments Pt stated feeling alot better, reports has been coming to therapy for a while, balance not as great as would like but has alot exercises can do and wants to do on her own. She wants to be sure has a sufficient stretching HEP during tx today to decrease tightness has throughout body. She reiterated as in last 2 txs since returned from vacation, wondering if when performed clamshell/reverse clamshell after returning from vacation and still recovering from a nearfall sternum hitting the dresser while on vacation flared up her body. She wonders if also tweek/ stressed her neck with the exercises. She says maybe why not did well last tx but feels thinks well on way recovery, able walk better with AFO and SPC today, demonstrates locked RLE in midstance. Pt reviewed with [employer], when on vacation in [place], was walking in middle of night from bedroom to bathroom while trying to maintain her keigle to hold urine and fell forward on to dresser into sternum. She stated didnt go see anyone, got better within 2 full days to return home. PT-OP-D Balance Start: 05/23/21 18:50 Freq: Status: Active Protocol: Document 09/19/21 10:30 LRN (Rec: 09/19/21 12:25 LRN [id number]) Balance Tests Other Other Balance Tests Performed EO on solid surface: 60 secs EC on solid surface: 60 secs EO on soft surface (blue foam) : 60 secs EC on soft surface (blue foam) : 1 sec PT-OP-E Functional Tests Start: 05/23/21 18:50 Freq: Status: Active Protocol: Document 11/09/21 10:34 LRN (Rec: 11/09/21 11:19 LRN [id number]) Functional Tests Timed Up and Go (TUG) Score 43 Comments SPC, no AFO, onset of burning in feet, plantar aspect. TUG Impairment Rating 100% Impaired (Score 20) PT-OP-G Mobility & Gait Start: 05/23/21 18:50 Freq: Status: Active Protocol: Document 08/22/21 10:38 LRN (Rec: 08/22/21 12:20 LRN [id number]) OP Gait Assessment Gait Gait Assistance Required: Independent Distance (Feet) 100 Assistive Devices Assistive Device Straight Cane Gait Deviations General Gait Pattern Decreased Stride Length, Lateral Trunk Lean Factors Limiting Gait Function Factors Limiting Gait Function Abnormal Tonal Influences, Decreased Strength,Poor Balance Comments Gait Comments R AFO improves ankle position, but noted R ankle IV's on stance phase. PT-OP-J Posture/Palpation/Skin Start: 05/23/21 18:50 Freq: Status: Active Protocol: Document 05/25/21 11:23 LRN (Rec: 05/25/21 12:06 LRN [id number]) Posture Evaluation Position Standing Head/C-Spine Posture Forward Head Shoulder Posture (L) Elevated Knee Posture (L) Excess Flexion Ankle/Foot Posture (R) Supinated,(R) Calcaneal Inversion Comments Posture Comments L leg long, holds knee flexed. When R knee is straight, the pelvis rotates right. Slight curve of back with apex on the left. PT-OP-K Range of Motion Start: 05/23/21 18:50 Freq: Status: Active Protocol: Document 07/18/21 12:51 LRN (Rec: 07/18/21 13:37 LRN [id number]) Ankle and Foot Goniometric Range of Motion Ankle and Foot Left Active Ankle/Foot ROM WFL Yes Testing Position Sitting Dorsiflexion with Knee Flexed 7 Inversion 30 Eversion 30 Right Active Ankle/Foot ROM WFL No Testing Position Sitting Inversion 35 Eversion 10 Comments Ankle DF with knee flexed is lacking 5 deg's to neutral. PT-OP-M Strength Start: 05/23/21 18:50 Freq: Status: Active Protocol: Document 08/22/21 10:38 LRN (Rec: 08/22/21 12:20 LRN [id number]) Hip Strength Hip Manual Muscle Testing Right Flexion (L2) 5 Normal External Rotation 3+ Fair+ Internal Rotation 3+ Fair+ Left Flexion (L2) 5 Normal Extension (S1) 5 Normal Abduction 5 Normal Adduction 5 Normal External Rotation 5 Normal Internal Rotation 4+ Good+ Knee Strength Knee Manual Muscle Testing Right Flexion (S2) 3+ Fair+ Extension (L3) 5 Normal Left Flexion (S2) 5 Normal Extension (L3) 5 Normal PT-OP-O Vestibular Start: 11/07/21 11:24 Freq: Status: Active Protocol: Document 11/07/21 11:15 DCW (Rec: 11/07/21 11:59 DCW [id number]) Vestibular Assessment Auditory Tests English Test Within normal limits Rinne Test Negative Air Conduction Results Right Greater Visual Testing Smooth Pursuits Horizontal WNL Smooth Pursuits Vertical WNL Saccades Horizontal WNL Gaze Evoked Nystagmus With Fixation 1 deg R Gaze Evoked Nystagmus Without Fixation Negative Heave Test Positive Right Thrust Head Positive Right Spontaneous Nystagmus Positive Positional Testing Smiley-Hallpike Negative Left,Negative Right Rolling Test Negative Left,Negative Right PT-OP-T Assessment and Plan Start: 05/23/21 18:50 Freq: Status: Active Protocol: Document 05/06/22 14:06 LRN (Rec: 05/06/22 14:17 LRN [id number]) Physical Therapy Assessment Goals Decreased balance on unlevel surfaces. Impairment Decreased balance on unlevel surface. Impairment EC on soft surface standing feet together: 1 sec EC on solid surface standing feet together: 60+ secs Serologist Goal (LTG) Improve pt's balance on soft/ uneven surfaces with pt able to walk on part of [place] with cane/R AFO independently and with increased confidence in safety with gait and no loss of balance. 09/26/21: see 09/26 note with uneven surface gait w/SPC. 10/10/21: improved soft suface gait w/ SPC (blue mat) initally 5%A then improved w/ SPC and cues increase ARMANDO approx 3 between BLE (no AFO/ maccasins on today), assimulate home thick carpet. LTG Duration 12/18/21 (10/10/21: progressing) Seven Impairment Increased sway with turning generally 2x/week. Impairment Near fall with turning ~2x/ week. Short Term Goal (STG) Vestibular assessment for inner ear dysfunction causing dizziness on turning. 09/28/21: pt has appt on 11/07/21 with Vestibular PT. STG Duration 11/16/21 (VPT appt 11/07/21) Chcf Goal (LTG) Pt able to turn with confidence and abby near fall episodes to no more than 1-2/ month. LTG Duration 12/18/21 (05/06/22: Pt unavailable for final assessment) Six Impairment Decreased functional strength Impairment Pt has difficulty raising R leg to put leg in pants. 08/10/21: pt states still bending over and putting on pants. Suggested Cross RLE over L place pant on foot then eccentrically lower RLE into pant leg for added strengthening. 08/17/21: pt states can't miantain RLE ankle on LLE put pants on so crosses RLE over LLE and puts on. Is doing hip flexion lift ex. Depending upon what chair sit in can hold RLE ankle over LLE to put on pants and ease slow RLE to floor as pull pants up R leg. Chcf Goal (LTG) Pt will be able to lift R leg (in sitting) for ease of dressing (to put leg in pants) . 08/10/21: Progressing can lift RLE off ground about 5 inches intially then as reps progress not as high but only hold 2 sec before need to slow lower. 08/17/21: lift up 3 then slowly lower (AFO and shoe on, performed after 6MWT). (08/22/21: Pt able to lift R leg with assist of her UE's to place R knee over the L knee, but pt has difficulty keeping her R knee in place) 09/12/21: able to put RLE over L to put on pants and not have to hold as hard, staying better. (09/28/21: progressing: pt ableto complete R hip flexion/ ER AROM foot little higher than mid morocho 2x10 reps today wtihout UE assist). (10/12/21: Pt able to lift RLE onto L knee to put socks/shoes on. Somedays not as successful as other days). LTG Duration 12/18/21 (10/12/21 MET GOAL) Five Impairment Decreased stamina Short Term Goal (STG) Pt will be able to tolerate 10 minutes of upper body strengthening during a 38 miniute therapy session. 08/17/21: performed/ reviewed end tx didn't time. 08/22/21: UBE x 4' & 90 rpm. 09/12/21: scifit: 6 min UE/LEs 09/19/21: Biodex x 8' UE/LEs 09/28/21: scifit x8 min LEs only 2.5 resistance, UBE 4 min at 105 resistance. 10/10/21: scifit 8 min LEs 2.5 resistance, 6 min UBE 105 resistance 11/16/21: pt tolerated BUE& BLE together 10 min biodex this tx, not enough time to do UE individually. STG Duration 11/16/21 ( 11/16/21: Progressed) Chcf Goal (LTG) Pt will have greater confidence in her walking as demonstrated by improved TUG score of 14 or less. (07/18/21: TUG 22 secs w/AFO/ cane. 05/30/21: TUG 15 w/ AFO/cane). 09/12/21: GOAL MET: TUG 16s, 13s , 13s=20-40% impaired improved from 15 on 05/30/21. LTG Duration 11/20/21 (09/12/21: MET GOAL) Four Impairment Gait dysfunction Impairment R foot drop with occasional catching of toes. Short Term Goal (STG) Increase R hip/knee/ankle strength by 1/2 grade. (07/18/21: NOT MET for: R Hip ER/IR; R Knee flex) (08/22/21: R hip ER 3+/5, IR is 3/5; initially was ER 3/5, IR 3+/5. R knee flex same at 3+/5) STG Duration 11/16/21 (07/18/21: Goal mostly met) Serologist Goal (LTG) Legs not as tired at the end of the day with pt able to take her dog on a longer walk to end of block and back. 07/11/20: Pt only able to walk dog out to go to bathroom with cold bad weather, pre bad weather only able walk dog 3 drive[address] and back, uses SPC in LUE. PLOF reported during good weather days was able to walk approx total 1/4 mile. 08/22/21: Legs not too tired at the end of the day and walks dog 2-3x/day and can walk her dog to the end of the block and back. (09/19/21: 1x/week doing a long walk of 1+mile, usually early afternoon). LTG Duration 10/16/21 (08/22/21: MET GOAL) Three Impairment Decreased Balance Impairment Loss of balance without fall 2x/day in home. Serologist Goal (LTG) Improve balance with less reported LOB or no loss of balance with gait in home with more consistent use of AFO. 06/27/21: improved balanced gait, less R hip lateral ankle / hip deviations with new sneakers 9.5 (1 whole size larger). 07/11/20: pt reported had 2 falls (1 [address], 1 in kitchen) due to toe catching floor but not sure which foot caught the floor since last tx . Not sure why, maybe due to new sneakers 1 whole size bigger at 9.5 for AFO fit, vs 8.5. (07/18/21: No falls the past week, occasional LOB without fall) 08/17/21: had 1 fall since seen PT, not wearing shoes to go get shoes, sock got caught on nail of threshold last Sat/ Sun. Not LOB or fall since then. 08/22/21: No LOB since last reported on 08/17/21 09/12/21: Pt reports no LOB in home with AFO 90% of the time donned. 09/19/21: Thinks balance is being effected by the crystals in her ears. LOB day before yesterday with brief sec when turning around, but was able to catch self. LTG Duration 11/20/21 (09/12/21: MET GOAL) Two Impairment Decreased R LE strength Impairment Hip: Flexion 5/5 L, 4+/5 R; ER 3-/5 R, 2/5 L; IR 4+/5 bilaterally. Knee: Flex: 4/5 bilaterally; Ext: 3+/5 R, 5/5 L Ankle: Left: generally 5/5; Right: DF 2+/5, PF 3+/5, IV 3/ 5, EV 2/5. Short Term Goal (STG) Improve R ankle: generally 3+/ 5, R Knee: generally 4+/5; R hip AB 4/5 (07/11/20: HEP R ankle EV, DF TB #1). (07/18/21: R ankle: PF/IV is 5 /5 & DF/EV is 3-/5; R knee: Flex 3+/5, Ext 5/5; Hip AB 3-/ 5), (08/22/21: R ankle: PF/IV is 5 /5 & DF/EV is 3/5; R knee: Flex 3+/5, Ext 5/5; Hip AB 3-/ 5), STG Duration 11/16/21 (08/22/21: Improved in R ankle DF & EV strength 1/ 2 grade.) Serologist Goal (LTG) Increase R LE strength with pt able to lift self into bed at end of day with use of R leg. 07/11/20: GOAL MET: pt reports is able to lift RLE into bed now without UE support. (07/18/21: Able to boost self into bed 75% of the time.) LTG Duration 07/11/20 GOAL MET One Impairment HEP Impairment Pt goals received 05/30/21: Strengthen legs (R) & upper body; Hips feel like in alignment after sitting (R hip feels like it is forward). Short Term Goal (STG) Pt will be independent with a self care HEP of hip/knee/ ankle strengthening exercises. (05/30/21: HEP issued for hip and knee flex strengthening, STS without UE support) (06/08/21: Strengthening: Added HEP hip AB; 06/13/21: Added hip Ext. ABD 06/15/21: Added trunk rot) 06/22/21: added R ankle TB PF/ Eccentric DF, EV. (07/18/21: Verbal review of HEP of hip/knee/ankle ex's) STG Duration 06/23/21 (07/18/21: MET GOAL) Chcf Goal (LTG) Pt will be independent with a self care HEP of core strengthening exercises. (06/19/21: Core strengthening ex HEP issued) (07/20/21: Added HEP trunk flex) 08/17/21: R hip flexion/ eccentric lower seated, able get up from laying down positioning w/ hands. seated TB DF, EV. LE/ Core Step up/ downs w/ BHR, corner balance NBOS, stagger. 08/24/21: added side(reverse) & clamshell. Continue seated ankle TB #2, eccentric hip flexion, seated TB trunk flex/ ext/ rotate/ SB; stand: HS curl, side stepping, step up/ downs, STS etc. 09/28/21: pt performing seated resisted trunk rotation/SB, standing march, hip flex/ ER AROM, seated HS curl, side stepping, up/ down step w/ handle support. 10/10/21: progressing: focused on corner balance: NBOS andstagger 30s EC, Cued to hold off on tandem for safety. LTG Duration 12/18/21 (11/16/21: progressing) Assessment Summary Assessment Pt good demonstration and understanding of stretching HEP HOs reviewed past LE and added supine UE AROM and breath to improve upper body decreased tension for gait stability. Pt's R knee still moves into hyperextended positioning during midstance gait. Verbal cues needed for improved gait mechanics while using SPC. She showed better self awareness of keeping greater base of support for stability. Pt able to balance in stagger stance with eyes closed 30s, light sway, and ability to self correct without UE support. Overall pt showed consistency with her HEP and progressed slowly as expected. Message was received 11/16/21, that pt wanted to take a break from physical therapy and requested discharge. Physical Therapy Plan Discharge Physical Therapy Discharge Reasons Patient Request Discharge Comments Pt understands she will need a new referral to return to physical therapy. Thank you for your referral.
== END 2022-05-08 10:47 | disposition home or self-care (01) ==
LOC: PHYS 12:15
PROVIDERS: Family Provider Internal Medicine; PCP Internal Medicine; Referring Provider Internal Medicine; Visit Provider Internal Medicine
DX: G35 Multiple sclerosis (principal); M81.0 Age-related osteoporosis without current pathological fracture; R26.9 Unspecified abnormalities of gait and mobility; F32.5 Major depressive disorder, single episode, in full remission; M62.81 Muscle weakness (generalized); R42 Dizziness and giddiness
CPT/HCPCS: 97110; 97112; 97116; 97140; 97162; 97530; 97535; 97750; 97760

== ENCOUNTER → 2021-11-23 08:42 | Outpatient (CLI) | payer MEDICARE, OTHER, SELFPAY ==
[2021-11-23 09:40] LABS: Add Manual Diff / Slide Review NO; Basophils Absolute Auto 0 /uL (0-100); Basophils Percent Auto 0.7 % (0-2); Eosinophils Absolute Auto 300 /uL (0-450); Eosinophils Percent Auto 3.5 % (2-4); Hematocrit 38.7 % (36-46); Hemoglobin 13.2 g/dL (12.0-16.0); Lymphocytes Absolute Auto 3600 /uL (1100-4500); Lymphocytes Percent Auto 50.1 % (25-40); Mean Corpuscular HGB Conc 34.2 % (30-36); Mean Corpuscular Hemoglobin 33.5 PG (26-34); Monocytes Absolute Auto 600 /uL (0-900); Monocytes Percent Auto 8.4 % (3-14); Neutrophils Absolute Auto 2700 /uL (1500-7000); Neutrophils Percent Auto 37.3 % (50-75); Platelet Count 245 X10^3/uL (150-400); Red Blood Cell Count 3.95 X10^6/uL (4.0-5.2); White Blood Cell Count 7.3 X10^3/uL (4.5-11.0)
[2021-11-23 10:07] LABS: BUN Creatinine Ratio 33.3 (6-22); Blood Urea Nitrogen 21 mg/dL (7-17); Calcium 9.3 mg/dL (8.4-10.2); Carbon Dioxide 32 mmol/L (22-32); Chloride 102 mmol/L (98-107); Cholesterol 162 mg/dL (140-199); Estimated Glomerular Filt Rate > 60 mL/min (>60); Glucose 100 mg/dL (80-110); HDL Cholesterol 67 mg/dL (40-60); HEMOLYSIS < 15 (0-50); LDL Cholesterol Calculated 82 mg/dL (<100); Potassium 4.4 mmol/L (3.4-5.1); Sodium 137 mmol/L (137-145); Triglycerides 67 mg/dL (35-150)
== END ==
PROVIDERS: Family Provider Internal Medicine; PCP Family Medicine; Referring Provider Family Medicine; Visit Provider Family Medicine
DX: G35 Multiple sclerosis (principal); M81.0 Age-related osteoporosis without current pathological fracture; K59.00 Constipation, unspecified; M10.9 Gout, unspecified; E78.00 Pure hypercholesterolemia, unspecified; E78.5 Hyperlipidemia, unspecified
CPT/HCPCS: 36415; 80048; 80061; 85025

== ENCOUNTER 2022-01-31 07:53 | Emergency (ER) | payer MEDICARE, OTHER, SELFPAY ==
[2022-01-31 08:13] VITALS: BP 139/74; PULSE 61; RESP 18; TEMP 37.1; O2SAT 98; BMI 19.7
--- NOTE | 2022-01-31 08:28 | DI.RAD.S_ITS ---
PROCEDURE: XR CHEST 1V INDICATIONS: dizzy TECHNIQUE: One view of the chest was acquired. COMPARISON: [facility], , CHEST 2 VIEW, 06/29/2013, 7:37. FINDINGS: Surgical changes and devices: None. Lungs and pleura: On this semiupright portable chest examination, no large pneumothorax or large pleural effusions are seen. No focal infiltrates are seen. Mediastinum: Mediastinal contours appear normal. Heart size is normal. Bones and chest wall: Age-appropriate bony degenerative changes are seen. No suspicious bony lesions. Overlying soft tissues appear unremarkable. IMPRESSION: Unremarkable portable chest for age. Dictated by: Jovanny Maradiaga M.D. on 01/31/2022 at 8:21 Approved by: Jovanny Maradiaga M.D. on 01/31/2022 at 8:22
--- NOTE | 2022-01-31 08:29 | ED_ITS ---
HPI - Dizziness General Chief Complaint: Dizziness Stated Complaint: Vertigo, can't move head, falling Time Seen by Provider: 01/31/22 08:16 Source: patient and family Mode of arrival: Wheelchair History of Present Illness HPI Narrative: Patient is a 71-year-old female history of multiple sclerosis presenting today with dizziness ongoing for last 3 days. She says it is worse every time she stands up turns her head. She says this happened to her once before 3 years ago. She denies any chest pain or palpitations. No numbness tingling or weakness. She did go to the chiropractor on Saturday when this started however there was no manipulation she does some occipital release. She denies any blurry vision or double vision it is difficult to open her eyes his she gets more dizzy. She has trouble walking to the bathroom at home because of the dizziness. She has fallen few times as well. Daughter states that she has extremely poor circulation. Related Data Home Medications Medication Instructions Recorded Confirmed Vitamin D3 1 cap PO DAILY 09/14/19 10/10/21 baclofen 20 mg tablet 20 mg PO TID 09/14/19 10/10/21 gabapentin 300 mg capsule 300 mg PO DAILY 09/14/19 10/10/21 gabapentin 600 mg tablet 09/14/19 10/10/21 solifenacin 10 mg tablet 10 mg PO DAILY 09/14/19 10/10/21 venlafaxine 75 mg capsule,extended 75 mg PO DAILY 09/14/19 10/10/21 release 24 hr (Effexor XR) Previous Rx's Medication Instructions Recorded cyclobenzaprine 10 mg tablet 5 - 10 mg PO BID PRN muscle spasm 09/14/19 #10 tabs lidocaine 5 % topical patch 1 patch topical Q24H #30 ea 09/14/19 tramadol 50 mg tablet 50 mg PO BID PRN pain #10 tabs 09/14/19 meclizine 25 mg tablet 25 mg PO TID PRN dizziness #10 tabs 01/31/22 Allergies Allergy/AdvReac Type Severity Reaction Status Date / Time amoxicillin [From Augmentin] Allergy Severe ANAPHYLAXIS Verified 10/10/21 13:32 clavulanic acid Allergy Severe ANAPHYLAXIS Verified 10/10/21 13:32 [From Augmentin] codeine AdvReac Mild CONSTIPATIO Verified 10/10/21 13:32 N Review of Systems Review of Systems Narrative: GENERAL: Denies chills, fatigue, malaise, fever, sweats, travel HEENT: Denies sinus pain, ear pain, sore throat, difficulty swallowing, neck pain RESPIRATORY: Denies dyspnea, cough, wheezing, hemoptysis, sputum. CARDIOVASCULAR: Denies chest pain, palpitations, orthopnea, edema GASTROINTESTINAL: Denies nausea, vomiting, abdominal pain, diarrhea, constipation, melena. : Denies dysuria, frequency, incontinence, hematuria, urinary retention, flank pain. MUSCULOSKELETAL: Denies weakness, joint pain, or bony pain SKIN: No rash, no erythema, no pruritus NEUROLOGIC: See HPI PSYCHIATRIC: No concerning psychosocial issues. 12 point review of systems is negative except for those stated above and HPI Patient History Medical History (Updated 01/31/22 @ 10:33 by Kendy Hinojosa DO) Cataracts, bilateral (~2007) Chicken pox Constipation Fibroids (~1992) Gout (~1998) Hearing loss (~2008) Herpes (~1989) Multiple sclerosis Mumps Onychomycosis Osteopenia (~1999) Osteoporosis (~1999) Right foot pain Tremor of both hands Surgical History (Updated 09/06/21 @ 19:55 by Maddison Martin) Anesthesia History of breast augmentation History of carpal tunnel release (~1984) History of hernia repair (~2004) History of hysterectomy (~1992) Family History (Updated 09/06/21 @ 19:59 by Maddison Martin) Father History of heart disease Hyperlipidemia Mother Liver disease Brother Parkinson's disease Grandfather Cancer Grandmother Cancer Social History Smoking Status: Never smoker Smoking Status: Never smoker alcohol intake frequency: a few times a week Substance Use Type: does not use Exam Initial Vital Signs Initial Vital Signs: Vital Signs Temperature 98.7 F 01/31/22 08:13 Pulse Rate 61 01/31/22 08:13 Respiratory Rate 18 01/31/22 08:13 Blood Pressure 139/74 01/31/22 08:13 Pulse Oximetry 98 01/31/22 08:13 Oxygen Delivery Method 01/31/22 08:13 GENERAL: Alert 71-year-old female appears to not feel well and in no acute distress. HEENT: Head atraumatic,EOMI, pupils reactive, nystagmus face symmetric, moist mucous membranes CARDIOVASCULAR: Regular rate and rhythm without murmurs, rubs or gallops. RESPIRATORY: Breath sounds equal bilaterally, no wheezes rales or rhonchi. ABDOMEN: Soft, nontender. Normoactive bowel sounds all 4 quadrants. No guardi ng or rebound. EXTREMITIES: Normal range of motion, no clubbing or edema. Neurovascularly intact NEUROLOGICAL: Alert and oriented x4.Normal gait and speech. Cranial nerves II through XII grossly intact. Good qvvajo-oa-eyus, good rvyz-sn-jfhb, strength equal bilaterally, no dysarthria or aphasia, sensation in tact to soft touch bilaterally, no visual changes, no facial droop SKIN: Warm, dry, no laceration, no petechiae, no rashes or lesions. Scores NIH Stroke Scale Level of Conciousness: Alert, keenly responsive Ask month/age: Answers both questions correctly. Open/close eyes, close hand: Performs both tasks correctly Best gaze horizontal: Normal Visual zelaya: No visual loss Facial palsy: Normal symetrical movement Left arm drift: No drift for full 10 sec Right arm drift: No drift for full 10 sec Left leg drift: No drift for full 5 sec Right leg drift: No drift for full 5 sec Limb ataxia: Absent Sensory on face/arms/legs: Normal, no sensory loss Best language: No aphasia, normal Dysarthria: Normal Extinction or inattention: No abnormality Total NIH Stroke scale score: 0 Course Orders Ordered: Discontinued Medications Acetaminophen (Acetaminophen 325 Mg Tablet) 975 mg PO NOW ONE Stop: 01/31/22 10:00 Last Admin: 01/31/22 10:19 Dose: 975 mg Documented By: SUDHIR Sodium Chloride (Normal Saline 0.9%) 1,000 mls @ 150 mls/hr IV CONT JANEEN Last Admin: 01/31/22 08:54 Dose: 150 mls/hr Documented By: SUDHIR Meclizine HCl (Meclizine Hcl 12.5 Mg Tablet) 25 mg PO NOW ONE Stop: 01/31/22 08:28 Last Admin: 01/31/22 08:54 Dose: 25 mg Documented By: SUDHIR Vital Signs Vital signs: Vital Signs - 8 hr 01/31/22 08:13 Temperature 98.7 F Pulse Rate 61 Respiratory Rate 18 Blood Pressure 139/74 Pulse Oximetry 98 Oxygen Delivery Method Room Air MDM - Dizziness Lab Data Result diagrams: 01/31/22 08:38 01/31/22 08:38 Labs: Lab Results 01/31/22 01/31/22 Range/Units 08:38 08:38 WBC 8.8 (4.5-11.0) X10^3/uL RBC 4.05 (4.0-5.2) X10^6/uL Hgb 13.4 (12.0-16.0) g/dL Hct 39.2 (36-46) % MCV 96.7 (80-100) fL MCH 33.1 (26-34) PG MCHC 34.2 (30-36) % RDW 13.8 (11.6-14.8) % Plt Count 231 (150-400) X10^3/uL Neut % (Auto) Not Reportable Lymph % (Auto) Not Reportable Meagher % (Auto) Not Reportable Eos % (Auto) Not Reportable Baso % (Auto) Not Reportable Lymph # (Auto) Not Reportable Meagher # (Auto) Not Reportable Baso # (Auto) Not Reportable Total Counted 100 Seg Neutrophils % 32.0 L (38-70) % Band Neutrophils % 2.0 L (3-7) % Lymphocytes % (Manual) 53.0 H (25-45) % Atypical Lymphs % 6.0 H ( - 0) % Monocytes % (Manual) 4.0 (2-11) % Eosinophils % (Manual) 2.0 (2-4) % Basophils % (Manual) 1.0 (0-1) % Neutrophils # (Manual) 2992 L (8450-8869) /uL RBC Morphology Normal morphology Sodium 136 L (137-145) mmol/L Potassium 3.8 (3.4-5.1) mmol/L Chloride 100 (98-107) mmol/L Carbon Dioxide 31 (22-32) mmol/L BUN 15 (7-17) mg/dL Creatinine 0.60 (0.52-1.04) mg/dL Estimated GFR > 60 (>60) mL/min BUN/Creatinine Ratio 25.0 H (6-22) Glucose 103 (80-110) mg/dL Calcium 9.2 (8.4-10.2) mg/dL Total Bilirubin 0.3 (0.2-1.3) mg/dL AST 23 (14-36) IU/L ALT 17 (<35) IU/L Alkaline Phosphatase 47 (38-126) U/L Total Creatine Kinase 33 (30-135) U/L CK-MB (CK-2) TNP CK-MB (CK-2) Rel Index TNP Troponin I < 0.012 (0.01-0.034) ng/mL Total Protein 6.7 (6.3-8.2) g/dL Albumin 4.2 (3.5-5.0) g/dL Globulin 2.5 (1.7-4.1) g/dL Albumin/Globulin Ratio 1.7 (1.0-2.8) Lipase 70 (23-300) U/L Urine Dip Bedside Urine Glucose Negative Bedside Urine Bilirubin - Negative Bedside Urine Ketone - Negative Urine Specific Barre 1.010 Bedside Urine Occult Blood - Negative Bedside Urine pH 7.5 Bedside Urine Protein - Negative Bedside Urine Urobilinogen - Negative Bedside Urine Nitrite - Negative Bedside Urine Leukocytes - Negative Esterase Imaging Data CTA - brain/neck: Radiologist's Impression: CT Scan Report Signed Patient: Verenice Pete MR#: [id number] : 1950 Acct:[id number] Age/Sex: 71 / F Date of Service: 01/31/22 Loc: ED Accession Number: [id number] ?? Procedure: CT angio head and neck Ordering Provider: Kendy Hinojosa D.O. PROCEDURE:? CT ANGIO HEAD AND NECK ? INDICATIONS:? dizzy for 3 days ? TECHNIQUE:? Pre-contrast 4.5 mm thick sections acquired from the foramen magnum to the vertex.? After the administration of intravenous contrast, 1 mm thick sections acquired from the aortic arch through the [place].? Post-contrast 4.5 mm thick sections then re- acquired from the foramen magnum to the vertex.? 3-dimensional znhjlno-hklidumaq-lirmrtitlv (MIP) and/or volume rendering reformats were acquired of the central intracranial vasculature and neck separately. For radiation dose reduction, the following was used:? automated exposure control, adjustment of mA and/or kV according to patient size.? ? COMPARISON:? Outside Film, MR, MR BRAIN WITH/WITHOUT CONTRAST, 02/10/2020, 12:32. ? FINDINGS:? Image quality:? Excellent.? ? BRAIN:? CSF spaces:? Ventricles are normal in size and shape.? Basal cisterns are patent.? No extra-axial fluid collections.? ? Brain:? No midline shift.? No intracranial bleeds or masses.? Hare-white matter interface appears intact.? Age-related volume loss and small vessel ischemic change. ? Skull and face:? Calvarium and facial bones appear intact, without suspicious lesions.? Orbits appear normal.? ? Sinuses:? Sinuses and mastoids are clear.? ? HEAD CT ANGIOGRAPHY:? Anterior circulation:? Intracranial internal carotid arteries are normal in size and flow.? The flow within the paired anterior cerebral arteries is normal and symmetric.? The flow within the middle cerebral arteries is normal and symmetric.? The anterior communicating artery is seen.? No aneurysms are seen.? ? Posterior circulation:? Visualized portions of the vertebral arteries demons trate normal caliber, and join to form a normal appearing basilar artery.? Flow within the posterior cerebral arteries is normal and symmetric.? No aneurysms are seen.? ? NECK CT ANGIOGRAPHY:? Carotid system:? The great vessels demonstrate a conventional anatomy as they arise from the aortic arch.? The origins of the common carotid arteries appear patent.? The common carotid arteries demonstrate normal caliber and courses.? The bifurcation regions are both widely patent.? The internal carotid arteries demonstrate normal calibers and courses.? ? Posterior circulation:? The origins of the vertebral arteries both appear widely patent.? The more superior extracranial portions of both vertebral arteries also demonstrate normal courses and calibers.? They join to form a normal appearing basilar artery.? ? Soft tissues:? Visualized neck soft tissues demonstrate no suspicious abnormalities.? ? Bones:? No suspicious bony lesions.? Visualized cervical spine appears normally aligned.? IMPRESSION:? ? 1. Age-related volume loss and small vessel ischemic change. ? 2. No evidence of acute stroke, hemorrhage, or mass. ? 3. Unremarkable CTA head.? No stenosis, aneurysm, occlusion, or focal filling defect. ? 4. Unremarkable CTA neck.? ? Any quantitative measurements of stenosis were performed using NASCET criteria.? ? ? Dictated by: Otis Sandoval M.D. on 01/31/2022 at 10:01 ? ? Chest x-ray: Radiologist's Impression: XRay Report Signed Patient: Verenice Pete MR#: [id number] : 1950 Acct:[id number] Age/Sex: 71 / F Date of Service: 01/31/22 Loc: ED Accession Number: [id number] ?? Procedure: XR chest 1V Ordering Provider: Kendy Hinojosa D.O. PROCEDURE:? XR CHEST 1V ? INDICATIONS:? dizzy ? TECHNIQUE:? One view of the chest was acquired.? ? COMPARISON:? [facility], , CHEST 2 VIEW, 06/29/2013, 7:37. ? FINDINGS:? ? Surgical changes and devices:? None.? ? Lungs and pleura:? On this semiupright portable chest examination, no large pneumothorax or large pleural effusions are seen.? No focal infiltrates are seen.? ? Mediastinum:? Mediastinal contours appear normal.? Heart size is normal.? ? Bones and chest wall:? Age-appropriate bony degenerative changes are seen.? No suspicious bony lesions.? Overlying soft tissues appear unremarkable.? IMPRESSION:? Unremarkable portable chest for age. ? ? Dictated by: Jovanny Maradiaga M.D. on 01/31/2022 at 8:21 ? ? ECG Data Interpretation: Normal sinus rhythm a 54 p.r. interval [address]-T or T-wave inversion MDM Narrative Medical decision making narrative: Patient is feeling better after meclizine. She is able to open her eyes and turn her head and look at me. She is able to get up as well. A head CT and blood work in the emergency department or overall is negative. She does have remote history of vertigo I think this is probably his vertigo it is definitely worse with movement which is consist. No focal deficits. Discharge Plan Departure Patient Disposition: Home Clinical Impression: Vertigo Instructions: DI for Vertigo Activity Restrictions/Additional Instructions: *You have been diagnosed with vertigo *What to do: Your symptoms today seem to be most consistent with vertigo. Rest and hydrate. This should go away spontaneously I hope you feel better soon *Continue to take medications as directed Meclizine 25 mg every 8 hours if needed for dizziness --> SENT TO [facility] *Follow up with your primary care provider in 2-3 days or call [phone] *Return to ER if you should have increasing weakness numbness, persistent vomiting [or] any new, worsening or concerning symptoms Prescriptions: New meclizine 25 mg tablet 25 mg PO TID PRN (Reason: dizziness) Qty: 10 0RF No Action gabapentin 600 mg tablet venlafaxine [Effexor XR] 75 mg Capsule,Extended Release 24hr 75 mg PO DAILY baclofen 20 mg Tablet 20 mg PO TID gabapentin 300 mg Capsule 300 mg PO DAILY solifenacin 10 mg Tablet 10 mg PO DAILY Vitamin D3 1 cap PO DAILY lidocaine 5 % adhesive patch,medicated 1 patch TOP Q24H Qty: 30 0RF Rx Instructions: leave on most painful area for up to 12 hrs cyclobenzaprine 10 mg tablet 5 - 10 mg PO BID PRN (Reason: muscle spasm) Qty: 10 0RF tramadol 50 mg tablet 50 mg PO BID PRN (Reason: pain) Qty: 10 0RF Referrals: Brooks Oakley DO [Primary Care Provider] - Visit Report Forms: Patient Portal/API
[2022-01-31 08:52] LABS: Hematocrit 39.2 % (36-46); Hemoglobin 13.4 g/dL (12.0-16.0); Mean Corpuscular HGB Conc 34.2 % (30-36); Mean Corpuscular Hemoglobin 33.1 PG (26-34); Mean Corpuscular Volume 96.7 fL (80-100); Platelet Count 231 X10^3/uL (150-400); Red Blood Cell Count 4.05 X10^6/uL (4.0-5.2); Red Cell Distribution Width 13.8 % (11.6-14.8); White Blood Cell Count 8.8 X10^3/uL (4.5-11.0)
[2022-01-31 08:53] LABS: Add Manual Diff / Slide Review YES
[2022-01-31] MEDS: SODIUM CHLORIDE 0.9% 1,000 ML 150 ML IV (08:54)
[2022-01-31] MEDS: MECLIZINE HCL 12.5 MG TABLET 25 MG PO (08:54)
[2022-01-31 09:08] LABS: Alanine Aminotransferase 17 IU/L (<35); Albumin 4.2 g/dL (3.5-5.0); Albumin Globulin Ratio 1.7 (1.0-2.8); Alkaline Phosphatase 47 U/L (38-126); Aspartate Aminotransferase 23 IU/L (14-36); Bilirubin Total 0.3 mg/dL (0.2-1.3); Blood Urea Nitrogen 15 mg/dL (7-17); Calcium 9.2 mg/dL (8.4-10.2); Carbon Dioxide 31 mmol/L (22-32); Chloride 100 mmol/L (98-107); Creatine Kinase 33 U/L (30-135); Estimated Glomerular Filt Rate > 60 mL/min (>60); Globulin 2.5 g/dL (1.7-4.1); Glucose 103 mg/dL (80-110); HEMOLYSIS < 15 (0-50); Lipase 70 U/L (23-300); Potassium 3.8 mmol/L (3.4-5.1); Sodium 136 mmol/L (137-145); Total Protein 6.7 g/dL (6.3-8.2)
[2022-01-31 09:19] LABS: Neutrophils Absolute Manual 2992 /uL (3000-5900); Total Cells Counted 100; Troponin I < 0.012 ng/mL (0.01-0.034)
[2022-01-31 09:21] LABS: RBC Morphology Normal Morphology
--- NOTE | 2022-01-31 09:37 | DI.CT.S_ITS ---
PROCEDURE: CT ANGIO HEAD AND NECK INDICATIONS: dizzy for 3 days TECHNIQUE: Pre-contrast 4.5 mm thick sections acquired from the foramen magnum to the vertex. After the administration of intravenous contrast, 1 mm thick sections acquired from the aortic arch through the [place]. Post-contrast 4.5 mm thick sections then re-acquired from the foramen magnum to the vertex. 3-dimensional cvvekiu-gdzhzrkbg-fgekwuenfh (MIP) and/or volume rendering reformats were acquired of the central intracranial vasculature and neck separately. For radiation dose reduction, the following was used: automated exposure control, adjustment of mA and/or kV according to patient size. COMPARISON: Outside Film, MR, MR BRAIN WITH/WITHOUT CONTRAST, 02/10/2020, 12:32. FINDINGS: Image quality: Excellent. BRAIN: CSF spaces: Ventricles are normal in size and shape. Basal cisterns are patent. No extra-axial fluid collections. Brain: No midline shift. No intracranial bleeds or masses. Hare-white matter interface appears intact. Age-related volume loss and small vessel ischemic change. Skull and face: Calvarium and facial bones appear intact, without suspicious lesions. Orbits appear normal. Sinuses: Sinuses and mastoids are clear. HEAD CT ANGIOGRAPHY: Anterior circulation: Intracranial internal carotid arteries are normal in size and flow. The flow within the paired anterior cerebral arteries is normal and symmetric. The flow within the middle cerebral arteries is normal and symmetric. The anterior communicating artery is seen. No aneurysms are seen. Posterior circulation: Visualized portions of the vertebral arteries demonstrate normal caliber, and join to form a normal appearing basilar artery. Flow within the posterior cerebral arteries is normal and symmetric. No aneurysms are seen. NECK CT ANGIOGRAPHY: Carotid system: The great vessels demonstrate a conventional anatomy as they arise from the aortic arch. The origins of the common carotid arteries appear patent. The common carotid arteries demonstrate normal caliber and courses. The bifurcation regions are both widely patent. The internal carotid arteries demonstrate normal calibers and courses. Posterior circulation: The origins of the vertebral arteries both appear widely patent. The more superior extracranial portions of both vertebral arteries also demonstrate normal courses and calibers. They join to form a normal appearing basilar artery. Soft tissues: Visualized neck soft tissues demonstrate no suspicious abnormalities. Bones: No suspicious bony lesions. Visualized cervical spine appears normally aligned. IMPRESSION: 1. Age-related volume loss and small vessel ischemic change. 2. No evidence of acute stroke, hemorrhage, or mass. 3. Unremarkable CTA head. No stenosis, aneurysm, occlusion, or focal filling defect. 4. Unremarkable CTA neck. Any quantitative measurements of stenosis were performed using NASCET criteria. Dictated by: Otis Sandoval M.D. on 01/31/2022 at 10:01 Approved by: Otis Sandoval M.D. on 01/31/2022 at 10:07
[2022-01-31 09:52] VITALS: PULSE 56; O2SAT 95
[2022-01-31 09:53] VITALS: BP 160/63; PULSE 52; O2SAT 94
[2022-01-31 10:00] VITALS: BP 154/72; PULSE 54; O2SAT 100
[2022-01-31] MEDS: ACETAMINOPHEN 325 MG TABLET 975 MG PO (10:19)
[2022-01-31 10:30] VITALS: BP 151/71; PULSE 53; O2SAT 99
== END 2022-01-31 11:02 | disposition home or self-care (01) ==
PROVIDERS: Emergency Provider Emergency Medicine; Family Provider Internal Medicine; PCP Family Medicine
DX: R42 Dizziness and giddiness (principal)
CPT/HCPCS: 36415; 70496; 70498; 71045; 80053; 81003; 82550; 83690; 84484; 85007; 85025; 93005; 99284; Q9967

== ENCOUNTER → 2022-08-15 14:14 | Outpatient (CLI) | payer MEDICARE, OTHER, SELFPAY ==
--- NOTE | 2022-08-15 14:17 | DI.US.S_ITS ---
PROCEDURE: US PELVIC COMPLETE INDICATIONS: Bloody discharge TECHNIQUE: Real-time scanning was performed of the pelvic organs, with image documentation. Additional endovaginal scanning was necessary due to incomplete visualization of the adnexal and endometrial structures by transabdominal scanning. COMPARISON: None. FINDINGS: Uterus: Surgically absent. Ovaries: Not visualized due to bowel gas and/or senescent change. No adnexal mass visualized. Other: No pathologic free abdominal or pelvic fluid. IMPRESSION: 1. Prior hysterectomy. 2. The ovaries were not visualized, likely due to bowel gas and/or senescent change. No adnexal mass visualized. We strive to produce accurate, complete, and clear reports of imaging services. To assist us in improving patient care, this report was composed using standard report templates and voice recognition software. Therefore, it may contain abnormal punctuation, insertions and/or omissions. Occasional wrong-word or sound-alike substitutions may occur. Though we review the report and make efforts to correct it, we do recommend that the report be read carefully in proper context to recognize any text inaccuracies. Dictated by: Tre Burton M.D. on 08/15/2022 at 17:26 Approved by: Tre Burton M.D. on 08/15/2022 at 17:30
--- NOTE | 2022-08-15 14:18 | DI.US.S_ITS ---
PROCEDURE: US ARTERIAL DUPLEX LE RT INDICATIONS: discoloration TECHNIQUE: Color and pulse Doppler interrogation was performed of the right lower extremity arterial system, with image documentation. COMPARISON: None. FINDINGS: Common femoral artery: 78.2 cm/sec, with triphasic flow. Deep femoral artery: 50.9 cm/sec, with biphasic flow. Proximal superficial femoral artery: 67.1 cm/sec, with biphasic flow. Mid superficial femoral artery: 62.9 cm/sec, with triphasic flow. Distal superficial femoral artery: 47.2 cm/sec, with triphasic flow. Popliteal artery: 55.5 cm/sec, with biphasic flow. Posterior tibial artery: 57.8 cm/sec, with biphasic flow. Anterior tibial artery/dorsalis pedis: 63.4 cm/sec, with biphasic flow. Hare-scale imaging description: No hemodynamically significant stenosis. IMPRESSION: No hemodynamically significant stenosis of the right lower extremity. Dictated by: Nessa Gomez M.D. on 08/15/2022 at 17:34 Approved by: Nessa Gomez M.D. on 08/15/2022 at 17:36
== END ==
PROVIDERS: Family Provider Internal Medicine; PCP Family Medicine; Referring Provider Family Medicine; Visit Provider Family Medicine
DX: I75.021 Atheroembolism of right lower extremity (principal); M79.89 Other specified soft tissue disorders; N89.8 Other specified noninflammatory disorders of vagina; Z90.710 Acquired absence of both cervix and uterus
CPT/HCPCS: 76830; 76856; 93926

== ENCOUNTER 2022-12-12 12:00 | Outpatient (RCR) | payer MEDICARE, OTHER, SELFPAY ==
--- NOTE | 2022-09-26 15:28 | PT.OIE ---
Current Diagnoses Multiple sclerosis (09/26/22) Muscle weakness (generalized) (09/26/22) Other abnormalities of gait and mobility (09/26/22) Repeated falls (09/26/22) Other symptoms and signs involving the musculoskeletal system (09/26/22) Past Medical History (Last Updated 08/22/22 @ 15:12 by Kaleb Oakley DO) Balance problem Cataracts, bilateral (~2007) Chicken pox Constipation Contact dermatitis Fibroids (~1992) Gout (~1998) Hearing loss (~2008) Herpes (~1989) Multiple sclerosis Mumps Onychomycosis Osteopenia (~1999) Osteoporosis (~1999) Purple toe syndrome of right foot Right foot pain Right leg weakness Swelling of right foot Tremor of both hands Vaginal discharge, bloody Past Surgical History (Last Updated 09/06/21 @ 19:55 by Maddison Martin) Anesthesia History of breast augmentation History of carpal tunnel release (~1984) History of hernia repair (~2004) History of hysterectomy (~1992) Visit Care Team Role Provider Type Erik Hernandez MD Family Provider Physician Specialty: Internal Medicine Address: [address] [place] [address], [facility] Email: [email or web address] Kaleb Oakley DO Attending Provider Physician Primary Care Provider Referring Provider Specialty: Family Practice Address: [address] [place] [address], [facility] Email: Physical Therapy Initial Evaluation PT-OP-A Visit Information Start: 09/26/22 12:12 Freq: Status: Active Protocol: Document 09/26/22 10:30 DCW (Rec: 09/26/22 12:18 DCW [id number]) Out-Patient Physical Therapy Visit Information Visit Information Visit Type Initial Evaluation Visit Start Time 10:30 Visit Stop Time 11:15 Total Visit Minutes 45 Visit Number 1 Number of VARNISH MAKER Visits 0 Evaluation Information Evaluation Date 09/26/22 PT-OP-B Current Condition Start: 09/26/22 12:12 Freq: Status: Active Protocol: Document 09/26/22 10:30 DCW (Rec: 09/26/22 12:40 DCW [id number]) Current Condition History of Current Condition Onset Date Multi-year history Current Complaints Weakness, falls, gait difficulties, imbalance secondary to MS History of Current Condition Pt is a 72 year old female with a long-standing history of MS who has been treated at this clinic multiple times over the years, returning today for a new evaluation. Pt reports her symptoms have been worsening, she feels her right leg has been weaker recently, making it difficult to lift it up into her car or into bed without assisting it with her arms. Notes that she hasn't been falling much ( admits to ~1x/month). Has been doing yoga 2x/week as well as prior HEP from PT 2x/week. Pt 's biggest complaint is that she is unable to walk fast enough to keep up with her boyfriend when out for a walk. Notes she usually hangs on to him when they are out walking , but otherwise uses her SPC. Does wear a R AFO secondary to foot drop. Treatment Goals Patient/Caregiver Goals I need to learn how to walk better and faster without tripping over myself. PT-OP-C Subjective Start: 09/26/22 12:12 Freq: Status: Active Protocol: Document 09/26/22 10:30 DCW (Rec: 09/26/22 12:18 DCW [id number]) OP-PT Subjective Patient Comments Patient Comments Everything is the same, but worse. I don't really have as much of that head stuff, like dizziness, like I used to, so that's good. Patient Questionnaires ABC- Activity Specific Balance Confidence Scale ABC Score 61.25% ABC Functional Impairment 20 to <40% Impaired (Score 61- 80) PT-OP-D Balance Start: 09/26/22 12:12 Freq: Status: Active Protocol: Document 09/26/22 10:30 DCW (Rec: 09/26/22 12:18 DCW [id number]) OP-PT Balance Assessment Sitting Balance Static Sitting Balance Ability Normal Dynamic Sitting Balance Ability Normal Standing Balance Static Standing Balance Ability Fair Dynamic Standing Balance Ability Fair Device Used SPC Posada Fall Scale Copyright Permission PT-OP-E Functional Tests Start: 09/26/22 12:12 Freq: Status: Active Protocol: Document 09/26/22 10:30 DCW (Rec: 09/26/22 12:18 DCW [id number]) Functional Tests 2 Minute Walk Test Distance 180' Device Used SPC Comments 1.5 ft/sec Dynamic Gait Index (DGI) Score 06/30 DGI Impairment Rating 40 to <60% Impaired (Score 10- 14) Timed Up and Go (TUG) Score 13.74 /c SPC Comments Three-trial average (15.80, 12 .74, 12.68) TUG Impairment Rating 40 to <60% Impaired (Score 14- 15) PT-OP-G Mobility & Gait Start: 09/26/22 12:12 Freq: Status: Active Protocol: Document 09/26/22 10:30 DCW (Rec: 09/26/22 12:31 DCW [id number]) OP Gait Assessment Gait Gait Assistance Required: Standby Assistance Distance (Feet) 180 Assistive Devices Assistive Device Gait Belt,Straight Cane Gait Deviations General Gait Pattern Ataxic,Decreased Stride Length ,Decreased Feet Clearance, Flexed Trunk,Narrow Based Gait Factors Limiting Gait Function Factors Limiting Gait Function Decreased Activity Tolerance, Decreased Strength, Incoordination,Poor Balance Stair Climbing Evaluation Evaluation Level of Assist On Stairs Standby Assistance Devices Stair Climbing Assistive Devices Right Railing Technique/Endurance Stair Climbing Direction Ascend and Descend Stair Climbing Technique Step Over Step Number of Steps Climbed 4 PT-OP-M Strength Start: 09/26/22 12:12 Freq: Status: Active Protocol: Document 09/26/22 10:30 DCW (Rec: 09/26/22 12:31 DCW [id number]) Hip Strength Hip Manual Muscle Testing Right Flexion (L2) 3 Fair Extension (S1) 4- Good- Abduction 3+ Fair+ Adduction 4- Good- External Rotation 3+ Fair+ Internal Rotation 4- Good- Left Flexion (L2) 4+ Good+ Extension (S1) 5 Normal Abduction 4+ Good+ Adduction 4+ Good+ External Rotation 4 Good Internal Rotation 4- Good- Knee Strength Knee Manual Muscle Testing Right Flexion (S2) 3+ Fair+ Extension (L3) 4 Good Left Flexion (S2) 4 Good Extension (L3) 4+ Good+ Ankle/Foot Strength Ankle and Foot Manual Muscle Testing Right Dorsiflexion (L4) 3- Fair- Left Dorsiflexion (L4) 4+ Good+ PT-OP-T Assessment and Plan Start: 09/26/22 12:12 Freq: Status: Active Protocol: Document 09/26/22 10:30 DCW (Rec: 09/26/22 15:28 DCW [id number]) Physical Therapy Assessment Rehab Potential Rehabilitation Potential Fair Evaluation Complexity Number of Personal Factors/Comorbidities 3 or More Number of Body Systems Impaired 4 or More Clinical Presentation at Evaluation Unstable Impairments Impairments Activity Tolerance,Balance, Coordination,Functional Activities,Functional Mobility ,Gait,Soft Tissue Mobility, Strength,Tone Other Concerns Fall Risk Yes, per falls history, DGI score Goals Three Impairment Pt experiencing increased weakness of right hip flexion (3/5) Soft Water Mechanic Goal (LTG) Pt to increase MMT score of right hip flexion to at least 4-/5 in order to improve ability to lift right leg into her car without use of her UEs. LTG Duration 12/25/22 Two Impairment Pt scores as a falls risk, per DGI (06/30) Soft Water Mechanic Goal (LTG) Pt to improve DGI score by at least 5 points to to show a decrease in falls risk. LTG Duration 12/25 One Impairment Pt does not have an appropriate home exercise program Short Term Goal (STG) Pt to be independent and compliant with an appropriate HEP STG Duration 11/26/22 Assessment Summary Assessment Pt presents with signs and symptoms consistent with referring diagnosis of worsening strength, gait, and balance secondary to long- standing diagnosis of Multiple Sclerosis. Pt has declined in function since her last round of PT ~one year ago. Pt limited in ability to go out for walks with her significant other, lift her leg into her car or into bed, and fatigues quickly while walking. Additionally, pt has recently been falling approximately one time a month, although she has been able to avoid any major injury associated with a fall. Pt should benefit from skilled therapy focusing on balance, gait, strength, and activity tolerance. Obviously, the nature of MS as a progressive, neurodegenerative disease process is a major limiting factor of pt's potential for improvement, however in the past, pt has undergone significant gains for at least short-term improvements, and hopes to be able to continue this trend. Physical Therapy Plan Frequency and Duration Frequency of Treatment 2x/Week Plan of Care Start Date 09/26/22 Plan of Care End Date 12/25/22 Therapeutic Interventions Therapeutic Interventions Balance Training,Coordination Training,Gait Training,Home Exercise Program,Joint Mobilizations,Manual Therapy, Neuromuscular Re-education, Patient/Caregiver Education, Self-Care/Home Management,Soft Tissue Mobilization, Therapeutic Activities, Therapeutic Exercises Next Visit Focus/Plan Next Note Type Treatment Note Next Visit Plan LE strengthening, gait and balance training, improving activity tolerance
--- NOTE | 2022-09-26 15:30 | PT.OPPOC ---
Physical, Occupational & Speech Therapy At [facility] Current Diagnoses Multiple sclerosis (09/26/22) Muscle weakness (generalized) (09/26/22) Other abnormalities of gait and mobility (09/26/22) Repeated falls (09/26/22) Other symptoms and signs involving the musculoskeletal system (09/26/22) Visit Care Team Role Provider Type Erik Hernandez MD Family Provider Physician Specialty: Internal Medicine Address: [address] [place] [address], [id number] Email: [email or web address] Kaleb Oakley DO Attending Provider Physician Primary Care Provider Referring Provider Specialty: Family Practice Address: [address] [place] [address], [id number] Email: Plan Of Care PT-OP-T Assessment and Plan Start: 09/26/22 12:12 Freq: Status: Active Protocol: Document 09/26/22 10:30 DCW (Rec: 09/26/22 15:28 DCW [id number]) Physical Therapy Assessment Rehab Potential Rehabilitation Potential Fair Evaluation Complexity Number of Personal Factors/Comorbidities 3 or More Number of Body Systems Impaired 4 or More Clinical Presentation at Evaluation Unstable Impairments Impairments Activity Tolerance,Balance, Coordination,Functional Activities,Functional Mobility ,Gait,Soft Tissue Mobility, Strength,Tone Other Concerns Fall Risk Yes, per falls history, DGI score Goals Three Impairment Pt experiencing increased weakness of right hip flexion (3/5) Care Home Goal (LTG) Pt to increase MMT score of right hip flexion to at least 4-/5 in order to improve ability to lift right leg into her car without use of her UEs. LTG Duration 12/25/22 Two Impairment Pt scores as a falls risk, per DGI (06/30) Executive Officer Goal (LTG) Pt to improve DGI score by at least 5 points to to show a decrease in falls risk. LTG Duration 12/25 One Impairment Pt does not have an appropriate home exercise program Short Term Goal (STG) Pt to be independent and compliant with an appropriate HEP STG Duration 11/26/22 Assessment Summary Assessment Pt presents with signs and symptoms consistent with referring diagnosis of worsening strength, gait, and balance secondary to long- standing diagnosis of Multiple Sclerosis. Pt has declined in function since her last round of PT ~one year ago. Pt limited in ability to go out for walks with her significant other, lift her leg into her car or into bed, and fatigues quickly while walking. Additionally, pt has recently been falling approximately one time a month, although she has been able to avoid any major injury associated with a fall. Pt should benefit from skilled therapy focusing on balance, gait, strength, and activity tolerance. Obviously, the nature of MS as a progressive, neurodegenerative disease process is a major limiting factor of pt's potential for improvement, however in the past, pt has undergone significant gains for at least short-term improvements, and hopes to be able to continue this trend. Physical Therapy Plan Frequency and Duration Frequency of Treatment 2x/Week Plan of Care Start Date 09/26/22 Plan of Care End Date 12/25/22 Therapeutic Interventions Therapeutic Interventions Balance Training,Coordination Training,Gait Training,Home Exercise Program,Joint Mobilizations,Manual Therapy, Neuromuscular Re-education, Patient/Caregiver Education, Self-Care/Home Management,Soft Tissue Mobilization, Therapeutic Activities, Therapeutic Exercises Next Visit Focus/Plan Next Note Type Treatment Note Next Visit Plan LE strengthening, gait and balance training, improving activity tolerance Plan of Care Dates Plan of Care Start Date 09/26/22 Plan of Care End Date 12/25/22 Electronically Signed by: Arias Slaughter, PT 09/26/22 7522 If you are in agreement with this Plan of Care, please return a signed and dated copy. I have reviewed this Plan of Care and certify that the skilled therapy services above are required to meet the patient?s needs. Physician Signature Date Printed Name and Credentials Clinical Instructor Signature Printed Name and Credentials
--- NOTE | 2022-10-01 17:07 | PT.OTN ---
Current Diagnoses Multiple sclerosis (10/01/22) Muscle weakness (generalized) (10/01/22) Other abnormalities of gait and mobility (10/01/22) Repeated falls (10/01/22) Other symptoms and signs involving the musculoskeletal system (10/01/22) Physical Therapy Treatment Note PT-OP-A Visit Information Start: 09/26/22 12:12 Freq: Status: Active Protocol: Document 10/01/22 16:00 DCW (Rec: 10/01/22 17:07 DCW [id number]) Out-Patient Physical Therapy Visit Information Visit Information Visit Type Treatment Note Visit Start Time 16:00 Visit Stop Time 16:45 Total Visit Minutes 45 Visit Number 2 Number of SPIRITUAL COUNSELOR Visits 0 Evaluation Information Evaluation Date 09/26/22 PT-OP-B Current Condition Start: 09/26/22 12:12 Freq: Status: Active Protocol: Document 09/26/22 10:30 DCW (Rec: 09/26/22 12:40 DCW [id number]) Current Condition History of Current Condition Onset Date Multi-year history Current Complaints Weakness, falls, gait difficulties, imbalance secondary to MS History of Current Condition Pt is a 72 year old female with a long-standing history of MS who has been treated at this clinic multiple times overthe years, returning today for a new evaluation. Pt reports her symptoms have been worsening, she feels her right leg has been weaker recently, making it difficult to lift it up into her car or into bed without assisting it with her arms. Notes that she hasn't been falling much ( admits to ~1x/month). Has been doing yoga 2x/week as well as prior HEP from PT 2x/week. Pt 's biggest complaint is that she is unable to walk fast enough to keep up with her boyfriend when out for a walk. Notes she usually hangs on to him when they are out walking , but otherwise uses her SPC. Does wear a R AFO secondary to foot drop. Treatment Goals Patient/Caregiver Goals I need to learn how to walk better and faster without tripping over myself. PT-OP-C Subjective Start: 09/26/22 12:12 Freq: Status: Active Protocol: Document 10/01/22 16:00 DCW (Rec: 10/01/22 17:07 DCW [id number]) OP-PT Subjective Patient Comments Patient Comments Pt reports she forgot to put her AFO on today. PT-OP-D Balance Start: 09/26/22 12:12 Freq: Status: Active Protocol: Document 09/26/22 10:30 DCW (Rec: 09/26/22 12:18 DCW [id number]) OP-PT Balance Assessment Sitting Balance Static Sitting Balance Ability Normal Dynamic Sitting Balance Ability Normal Standing Balance Static Standing Balance Ability Fair Dynamic Standing Balance Ability Fair Device Used SPC Posada Fall Scale Copyright Permission PT-OP-E Functional Tests Start: 09/26/22 12:12 Freq: Status: Active Protocol: Document 09/26/22 10:30 DCW (Rec: 09/26/22 12:18 DCW [id number]) Functional Tests 2 Minute Walk Test Distance 180' Device Used SPC Comments 1.5 ft/sec Dynamic Gait Index (DGI) Score 12/24 DGI Impairment Rating 40 to <60% Impaired (Score 10- 14) Timed Up and Go (TUG) Score 13.74 /c SPC Comments Three-trial average (15.80, 12 .74, 12.68) TUG Impairment Rating 40 to <60% Impaired (Score 14- 15) PT-OP-G Mobility & Gait Start: 09/26/22 12:12 Freq: Status: Active Protocol: Document 09/26/22 10:30 DCW (Rec: 09/26/22 12:31 DCW [id number]) OP Gait Assessment Gait Gait Assistance Required: Standby Assistance Distance (Feet) 180 Assistive Devices Assistive Device Gait Belt,Straight Cane Gait Deviations General Gait Pattern Ataxic,Decreased Stride Length ,Decreased Feet Clearance, Flexed Trunk,Narrow Based Gait Factors Limiting Gait Function Factors Limiting Gait Function Decreased Activity Tolerance, Decreased Strength, Incoordination,Poor Balance Stair Climbing Evaluation Evaluation Level of Assist On Stairs Standby Assistance Devices Stair Climbing Assistive Devices Right Railing Technique/Endurance Stair Climbing Direction Ascend and Descend Stair Climbing Technique Step Over Step Number of Steps Climbed 4 PT-OP-M Strength Start: 09/26/22 12:12 Freq: Status: Active Protocol: Document 09/26/22 10:30 DCW (Rec: 09/26/22 12:31 DCW [id number]) Hip Strength Hip Manual Muscle Testing Right Flexion (L2) 3 Fair Extension (S1) 4- Good- Abduction 3+ Fair+ Adduction 4- Good- External Rotation 3+ Fair+ Internal Rotation 4- Good- Left Flexion (L2) 4+ Good+ Extension (S1) 5 Normal Abduction 4+ Good+ Adduction 4+ Good+ External Rotation 4 Good Internal Rotation 4- Good- Knee Strength Knee Manual Muscle Testing Right Flexion (S2) 3+ Fair+ Extension (L3) 4 Good Left Flexion (S2) 4 Good Extension (L3) 4+ Good+ Ankle/Foot Strength Ankle and Foot Manual Muscle Testing Right Dorsiflexion (L4) 3- Fair- Left Dorsiflexion (L4) 4+ Good+ PT-OP-Q Treatments Start: 09/26/22 12:12 Freq: Status: Active Protocol: Document 10/01/22 16:00 DCW (Rec: 10/01/22 17:07 DCW [id number]) Cardio Equipment Recumbent Elliptical (Biodex) Duration (Minutes) 5 Resistance 3 Seat Position 8 Gym Equipment Shuttle Recovery Unilateral Squats Resistance 37# Shuttle Recovery Platform Stable Reps/Time 2x10- without AFO Bilateral Squats Resistance 50# Shuttle Recovery Platform Stable Reps/Time x10 each resistance- without AFO Shuttle Balance 1 Details Red - Wide ARMANDO Comments Wide ARMANDO (Perturbations, EO/EC ), Staggered Stance Therapeutic Exercises Standing Exercises Hamstring Curls Standing Exercise Name HS curl Side bilateral Resistance 4# Neuro Re-Education Treatment Balance Activities Tandem Stance Details Tandem stance Equipment @ rail Coordination Activities Cone taps Details LE cone-taps Equipment 4# ankle weights PT-OP-T Assessment and Plan Start: 09/26/22 12:12 Freq: Status: Active Protocol: Document 10/01/22 16:00 DCW (Rec: 10/01/22 17:07 DCW [id number]) Physical Therapy Assessment Impairments Impairments Activity Tolerance,Balance, Coordination,Functional Activities,Functional Mobility ,Gait,Soft Tissue Mobility, Strength,Tone Goals Three Impairment Pt experiencing increased weakness of right hip flexion (3/5) Fdc Goal (LTG) Pt to increase MMT score of right hip flexion to at least 4-/5 in order to improve ability to lift right leg into her car without use of her UEs. LTG Duration 12/25/22 Two Impairment Pt scores as a falls risk, per DGI (06/30) Fdc Goal (LTG) Pt to improve DGI score by at least 5 points to to show a decrease in falls risk. LTG Duration 12/25 One Impairment Pt does not have an appropriate home exercise program Short Term Goal (STG) Pt to be independent and compliant with an appropriate HEP STG Duration 11/26/22 Assessment Summary Assessment Pt tolerated treatment very well today, showed better coordination and balance than she did last week during her initial evaluation. Still struggled with lifting right foot up independently. Physical Therapy Plan Frequency and Duration Frequency of Treatment 2x/Week Plan of Care Start Date 09/26/22 Plan of Care End Date 12/25/22 Therapeutic Interventions Therapeutic Interventions Balance Training,Coordination Training,Gait Training,Home Exercise Program,Joint Mobilizations,Manual Therapy, Neuromuscular Re-education, Patient/Caregiver Education, Self-Care/Home Management,Soft Tissue Mobilization, Therapeutic Activities, Therapeutic Exercises Next Visit Focus/Plan Next Note Type Treatment Note Next Visit Plan LE strengthening, gait and balance training, improving activity tolerance
--- NOTE | 2022-10-03 11:17 | PT.OTN ---
Current Diagnoses Multiple sclerosis (10/03/22) Muscle weakness (generalized) (10/03/22) Other abnormalities of gait and mobility (10/03/22) Repeated falls (10/03/22) Other symptoms and signs involving the musculoskeletal system (10/03/22) Physical Therapy Treatment Note PT-OP-A Visit Information Start: 09/26/22 12:12 Freq: Status: Active Protocol: Document 10/03/22 10:32 DCW (Rec: 10/03/22 11:17 DCW [id number]) Out-Patient Physical Therapy Visit Information Visit Information Visit Type Treatment Note Visit Start Time 10:32 Visit Stop Time 11:15 Total Visit Minutes 43 Visit Number 3 Number of SALES SERVICE MANAGER Visits 0 Evaluation Information Evaluation Date 09/26/22 PT-OP-B Current Condition Start: 09/26/22 12:12 Freq: Status: Active Protocol: Document 09/26/22 10:30 DCW (Rec: 09/26/22 12:40 DCW [id number]) Current Condition History of Current Condition Onset Date Multi-year history Current Complaints Weakness, falls, gait difficulties, imbalance secondary to MS History of Current Condition Pt is a 72 year old female with a long-standing history of MS who has been treated at this clinic multiple times overthe years, returning today for a new evaluation. Pt reports her symptoms have been worsening, she feels her right leg has been weaker recently, making it difficult to lift it up into her car or into bed without assisting it with her arms. Notes that she hasn't been falling much ( admits to ~1x/month). Has been doing yoga 2x/week as well as prior HEP from PT 2x/week. Pt 's biggest complaint is that she is unable to walk fast enough to keep up with her boyfriend when out for a walk. Notes she usually hangs on to him when they are out walking , but otherwise uses her SPC. Does wear a R AFO secondary to foot drop. Treatment Goals Patient/Caregiver Goals I need to learn how to walk better and faster without tripping over myself. PT-OP-C Subjective Start: 09/26/22 12:12 Freq: Status: Active Protocol: Document 10/03/22 10:32 DCW (Rec: 10/03/22 11:17 DCW [id number]) OP-PT Subjective Patient Comments Patient Comments I did yoga yesterday, so I only did my exercises once. PT-OP-D Balance Start: 09/26/22 12:12 Freq: Status: Active Protocol: Document 09/26/22 10:30 DCW (Rec: 09/26/22 12:18 DCW [id number]) OP-PT Balance Assessment Sitting Balance Static Sitting Balance Ability Normal Dynamic Sitting Balance Ability Normal Standing Balance Static Standing Balance Ability Fair Dynamic Standing Balance Ability Fair Device Used [facility] Posada Fall Scale Copyright Permission PT-OP-E Functional Tests Start: 09/26/22 12:12 Freq: Status: Active Protocol: Document 09/26/22 10:30 DCW (Rec: 09/26/22 12:18 DCW [id number]) Functional Tests 2 Minute Walk Test Distance 180' Device Used SPC Comments 1.5 ft/sec Dynamic Gait Index (DGI) Score 12/24 DGI Impairment Rating 40 to <60% Impaired (Score 10- 14) Timed Up and Go (TUG) Score 13.74 /c SPC Comments Three-trial average (15.80, 12 .74, 12.68) TUG Impairment Rating 40 to <60% Impaired (Score 14- 15) PT-OP-G Mobility & Gait Start: 09/26/22 12:12 Freq: Status: Active Protocol: Document 09/26/22 10:30 DCW (Rec: 09/26/22 12:31 DCW [id number]) OP Gait Assessment Gait Gait Assistance Required: Standby Assistance Distance (Feet) 180 Assistive Devices Assistive Device Gait Belt,Straight Cane Gait Deviations General Gait Pattern Ataxic,Decreased Stride Length ,Decreased Feet Clearance, Flexed Trunk,Narrow Based Gait Factors Limiting Gait Function Factors Limiting Gait Function Decreased Activity Tolerance, Decreased Strength, Incoordination,Poor Balance Stair Climbing Evaluation Evaluation Level of Assist On Stairs Standby Assistance Devices Stair Climbing Assistive Devices Right Railing Technique/Endurance Stair Climbing Direction Ascend and Descend Stair Climbing Technique Step Over Step Number of Steps Climbed 4 PT-OP-M Strength Start: 09/26/22 12:12 Freq: Status: Active Protocol: Document 09/26/22 10:30 DCW (Rec: 09/26/22 12:31 DCW [id number]) Hip Strength Hip Manual Muscle Testing Right Flexion (L2) 3 Fair Extension (S1) 4- Good- Abduction 3+ Fair+ Adduction 4- Good- External Rotation 3+ Fair+ Internal Rotation 4- Good- Left Flexion (L2) 4+ Good+ Extension (S1) 5 Normal Abduction 4+ Good+ Adduction 4+ Good+ External Rotation 4 Good Internal Rotation 4- Good- Knee Strength Knee Manual Muscle Testing Right Flexion (S2) 3+ Fair+ Extension (L3) 4 Good Left Flexion (S2) 4 Good Extension (L3) 4+ Good+ Ankle/Foot Strength Ankle and Foot Manual Muscle Testing Right Dorsiflexion (L4) 3- Fair- Left Dorsiflexion (L4) 4+ Good+ PT-OP-Q Treatments Start: 09/26/22 12:12 Freq: Status: Active Protocol: Document 10/03/22 10:32 DCW (Rec: 10/03/22 11:17 DCW [id number]) Cardio Equipment Recumbent Elliptical (Biodex) Duration (Minutes) 5 Resistance 3 Seat Position 8 Gym Equipment Shuttle Balance 1 Details Red - Wide ARMANDO Comments Wide ARMANDO (Perturbations, EO/EC ), Staggered Stance Neuro Re-Education Treatment Balance Activities BOSU Lunge Details BOSU Lunge Surface Blue BOSU Tandem Stance Details Tandem stance Equipment @ rail Coordination Activities Cone taps Details LE cone-taps Equipment 5# ankle weights PT-OP-T Assessment and Plan Start: 09/26/22 12:12 Freq: Status: Active Protocol: Document 10/03/22 10:32 DCW (Rec: 10/03/22 11:17 DCW [id number]) Physical Therapy Assessment Impairments Impairments Activity Tolerance,Balance, Coordination,Functional Activities,Functional Mobility ,Gait,Soft Tissue Mobility, Strength,Tone Goals Three Impairment Pt experiencing increased weakness of right hip flexion (3/5) Cook Larder Goal (LTG) Pt to increase MMT score of right hip flexion to at least 4-/5 in order to improve ability to lift right leg into her car without use of her UEs. LTG Duration 12/25/22 Two Impairment Pt scores as a falls risk, per DGI (06/30) Fpc Goal (LTG) Pt to improve DGI score by at least 5 points to to show a decrease in falls risk. LTG Duration 12/25 One Impairment Pt does not have an appropriate home exercise program Short Term Goal (STG) Pt to be independent and compliant with an appropriate HEP STG Duration 11/26/22 Assessment Summary Assessment Significantly increased difficulty with 5# weights on ankle vs 4# weights last visit ,but decreased signs of fatigue overall with activity today. Physical Therapy Plan Frequency and Duration Frequency of Treatment 2x/Week Plan of Care Start Date 09/26/22 Plan of Care End Date 12/25/22 Therapeutic Interventions Therapeutic Interventions Balance Training,Coordination Training,Gait Training,Home Exercise Program,Joint Mobilizations,Manual Therapy, Neuromuscular Re-education, Patient/Caregiver Education, Self-Care/Home Management,Soft Tissue Mobilization, Therapeutic Activities, Therapeutic Exercises Next Visit Focus/Plan Next Note Type Treatment Note Next Visit Plan LE strengthening, gait and balance training, improving activity tolerance
--- NOTE | 2022-10-08 11:31 | PT.OTN ---
Current Diagnoses Multiple sclerosis (10/08/22) Muscle weakness (generalized) (10/08/22) Other abnormalities of gait and mobility (10/08/22) Repeated falls (10/08/22) Other symptoms and signs involving the musculoskeletal system (10/08/22) Physical Therapy Treatment Note PT-OP-A Visit Information Start: 09/26/22 12:12 Freq: Status: Active Protocol: Document 10/08/22 10:44 NBM (Rec: 10/08/22 11:31 NBM [id number]) Out-Patient Physical Therapy Visit Information Visit Information Visit Type Treatment Note Visit Start Time 10:36 Visit Stop Time 11:18 Total Visit Minutes 42 Visit Number 4 Number of MUSHROOM GROWING SUPERVISOR Visits 1 Evaluation Information Evaluation Date 09/26/22 PT-OP-B Current Condition Start: 09/26/22 12:12 Freq: Status: Active Protocol: Document 09/26/22 10:30 DCW (Rec: 09/26/22 12:40 DCW [id number]) Current Condition History of Current Condition Onset Date Multi-year history Current Complaints Weakness, falls, gait difficulties, imbalance secondary to MS History of Current Condition Pt is a 72 year old female with a long-standing history of MS who has been treated at this clinic multiple times overthe years, returning today for a new evaluation. Pt reports her symptoms have been worsening, she feels her right leg has been weaker recently, making it difficult to lift it up into her car or into bed without assisting it with her arms. Notes that she hasn't been falling much ( admits to ~1x/month). Has been doing yoga 2x/week as well as prior HEP from PT 2x/week. Pt 's biggest complaint is that she is unable to walk fast enough to keep up with her boyfriend when out for a walk. Notes she usually hangs on to him when they are out walking , but otherwise uses her SPC. Does wear a R AFO secondary to foot drop. Treatment Goals Patient/Caregiver Goals I need to learn how to walk better and faster without tripping over myself. PT-OP-C Subjective Start: 09/26/22 12:12 Freq: Status: Active Protocol: Document 10/08/22 10:44 NBM (Rec: 10/08/22 11:31 NBM [id number]) OP-PT Subjective Patient Comments Patient Comments I am doing all right. Pt reports the band feels too easy for exercises at home. PT-OP-D Balance Start: 09/26/22 12:12 Freq: Status: Active Protocol: Document 09/26/22 10:30 DCW (Rec: 09/26/22 12:18 DCW [id number]) OP-PT Balance Assessment Sitting Balance Static Sitting Balance Ability Normal Dynamic Sitting Balance Ability Normal Standing Balance Static Standing Balance Ability Fair Dynamic Standing Balance Ability Fair Device Used [facility] Posada Fall Scale Copyright Permission PT-OP-E Functional Tests Start: 09/26/22 12:12 Freq: Status: Active Protocol: Document 09/26/22 10:30 DCW (Rec: 09/26/22 12:18 DCW [id number]) Functional Tests 2 Minute Walk Test Distance 180' Device Used SPC Comments 1.5 ft/sec Dynamic Gait Index (DGI) Score 12/24 DGI Impairment Rating 40 to <60% Impaired (Score 10- 14) Timed Up and Go (TUG) Score 13.74 /c SPC Comments Three-trial average (15.80, 12 .74, 12.68) TUG Impairment Rating 40 to <60% Impaired (Score 14- 15) PT-OP-G Mobility & Gait Start: 09/26/22 12:12 Freq: Status: Active Protocol: Document 09/26/22 10:30 DCW (Rec: 09/26/22 12:31 DCW [id number]) OP Gait Assessment Gait Gait Assistance Required: Standby Assistance Distance (Feet) 180 Assistive Devices Assistive Device Gait Belt,Straight Cane Gait Deviations General Gait Pattern Ataxic,Decreased Stride Length ,Decreased Feet Clearance, Flexed Trunk,Narrow Based Gait Factors Limiting Gait Function Factors Limiting Gait Function Decreased Activity Tolerance, Decreased Strength, Incoordination,Poor Balance Stair Climbing Evaluation Evaluation Level of Assist On Stairs Standby Assistance Devices Stair Climbing Assistive Devices Right Railing Technique/Endurance Stair Climbing Direction Ascend and Descend Stair Climbing Technique Step Over Step Number of Steps Climbed 4 PT-OP-M Strength Start: 09/26/22 12:12 Freq: Status: Active Protocol: Document 09/26/22 10:30 DCW (Rec: 09/26/22 12:31 DCW [id number]) Hip Strength Hip Manual Muscle Testing Right Flexion (L2) 3 Fair Extension (S1) 4- Good- Abduction 3+ Fair+ Adduction 4- Good- External Rotation 3+ Fair+ Internal Rotation 4- Good- Left Flexion (L2) 4+ Good+ Extension (S1) 5 Normal Abduction 4+ Good+ Adduction 4+ Good+ External Rotation 4 Good Internal Rotation 4- Good- Knee Strength Knee Manual Muscle Testing Right Flexion (S2) 3+ Fair+ Extension (L3) 4 Good Left Flexion (S2) 4 Good Extension (L3) 4+ Good+ Ankle/Foot Strength Ankle and Foot Manual Muscle Testing Right Dorsiflexion (L4) 3- Fair- Left Dorsiflexion (L4) 4+ Good+ PT-OP-Q Treatments Start: 09/26/22 12:12 Freq: Status: Active Protocol: Document 10/08/22 10:44 NB (Rec: 10/08/22 11:31 [facility] [id number]) Cardio Equipment Recumbent Elliptical (Biodex) Duration (Minutes) 6 Resistance 3>5>4 Seat Position 8 Other discussed pacing Gym Equipment Shuttle Balance 1 Details Red - Wide ARMANDO Comments Wide ARMANDO (Perturbations, EO/EC a/p and m/l weightsfhiting and balloon volleyball), Staggered Stance (a/p weightshifting) vc for increased weightshifting over LLE with m /l stance Therapeutic Exercises Sitting Exercises LAQ Side bilateral Equipment Used mesh chair Reps/Minutes x10 ea Comments vc for knee ext w/ hip flex seated marching Sitting Exercise Name resisted Side bilateral Resistance purple Tb Equipment Used mesh chair Reps/Minutes x10 ea Comments visual cue for R knee max height hip abduction Sitting Exercise Name seated clamshells Side bilateral Resistance purple TB Reps/Minutes x10 Comments vc slow eccentric Standing Exercises standing hip flexion Side bilateral Resistance purple Tb Equipment Used handrail Reps/Minutes x15 ea Neuro Re-Education Treatment Balance Activities Tandem Stance Details Tandem stance Equipment @ rail Coordination Activities Cone taps Details LE cone-taps Equipment 5# ankle weights Comments crossing midline, LUE support PT-OP-T Assessment and Plan Start: 09/26/22 12:12 Freq: Status: Active Protocol: Document 10/08/22 10:44 NBM (Rec: 10/08/22 11:31 [facility] [id number]) Physical Therapy Assessment Impairments Impairments Activity Tolerance,Balance, Coordination,Functional Activities,Functional Mobility ,Gait,Soft Tissue Mobility, Strength,Tone Goals Three Impairment Pt experiencing increased weakness of right hip flexion (3/5) Impairment Loss of balance without fall 2x/day in home. Chorus Dancer Goal (LTG) Pt to increase MMT score of right hip flexion to at least 4-/5 in order to improve ability to lift right leg into her car without use of her UEs. LTG Duration 12/25/22 Two Impairment Pt scores as a falls risk, per DGI (06/30) Impairment Hip: Flexion 5/5 L, 4+/5 R; ER 3-/5 R, 2/5 L; IR 4+/5 bilaterally. Knee: Flex: 4/5 bilaterally; Ext: 3+/5 R, 5/5 L Ankle: Left: generally 5/5; Right: DF 2+/5, PF 3+/5, IV 3/ 5, EV 2/5. Usp Goal (LTG) Pt to improve DGI score by at least 5 points to to show a decrease in falls risk. LTG Duration 12/25 One Impairment Pt does not have an appropriate home exercise program Impairment Pt goals received 05/30/21: Strengthen legs (R) & upper body; Hips feel like in alignment after sitting (R hip feels like it is forward). Short Term Goal (STG) Pt to be independent and compliant with an appropriate HEP STG Duration 11/26/22 Assessment Summary Assessment Pt demonstrates good activity tolerance today. Briefly reviewed pacing strategies for energy conservation. Pt requires vc for increased weightshifting over LLE with m /l stance on shuttle balance, and performs balloon volleyball without GASOLINE FINISHER, CGA> Alex. Physical Therapy Plan Frequency and Duration Frequency of Treatment 2x/Week Plan of Care Start Date 09/26/22 Plan of Care End Date 12/25/22 Therapeutic Interventions Therapeutic Interventions Balance Training,Coordination Training,Gait Training,Home Exercise Program,Joint Mobilizations,Manual Therapy, Neuromuscular Re-education, Patient/Caregiver Education, Self-Care/Home Management,Soft Tissue Mobilization, Therapeutic Activities, Therapeutic Exercises Next Visit Focus/Plan Next Note Type Treatment Note Next Visit Plan LE strengthening, gait and balance training, improving activity tolerance
--- NOTE | 2022-10-10 11:12 | PT.OTN ---
Current Diagnoses Multiple sclerosis (10/10/22) Muscle weakness (generalized) (10/10/22) Other abnormalities of gait and mobility (10/10/22) Repeated falls (10/10/22) Other symptoms and signs involving the musculoskeletal system (10/10/22) Physical Therapy Treatment Note PT-OP-A Visit Information Start: 09/26/22 12:12 Freq: Status: Active Protocol: Document 10/10/22 10:30 DCW (Rec: 10/10/22 11:12 DCW [id number]) Out-Patient Physical Therapy Visit Information Visit Information Visit Type Treatment Note Visit Start Time 10:30 Visit Stop Time 11:15 Total Visit Minutes 45 Visit Number 5 Number of GLOVE PAIRER Visits 0 Evaluation Information Evaluation Date 09/26/22 PT-OP-B Current Condition Start: 09/26/22 12:12 Freq: Status: Active Protocol: Document 09/26/22 10:30 DCW (Rec: 09/26/22 12:40 DCW [id number]) Current Condition History of Current Condition Onset Date Multi-year history Current Complaints Weakness, falls, gait difficulties, imbalance secondary to MS History of Current Condition Pt is a 72 year old female with a long-standing history of MS who has been treated at this clinic multiple times overthe years, returning today for a new evaluation. Pt reports her symptoms have been worsening, she feels her right leg has been weaker recently, making it difficult to lift it up into her car or into bed without assisting it with her arms. Notes that she hasn't been falling much ( admits to ~1x/month). Has been doing yoga 2x/week as well as prior HEP from PT 2x/week. Pt 's biggest complaint is that she is unable to walk fast enough to keep up with her boyfriend when out for a walk. Notes she usually hangs on to him when they are out walking , but otherwise uses her SPC. Does wear a R AFO secondary to foot drop. Treatment Goals Patient/Caregiver Goals I need to learn how to walk better and faster without tripping over myself. PT-OP-C Subjective Start: 09/26/22 12:12 Freq: Status: Active Protocol: Document 10/10/22 10:30 DCW (Rec: 10/10/22 11:12 DCW [id number]) OP-PT Subjective Patient Comments Patient Comments I have some activity almost every day other than my home exercises, so I don't always get it done twice a day. PT-OP-D Balance Start: 09/26/22 12:12 Freq: Status: Active Protocol: Document 09/26/22 10:30 DCW (Rec: 09/26/22 12:18 DCW [id number]) OP-PT Balance Assessment Sitting Balance Static Sitting Balance Ability Normal Dynamic Sitting Balance Ability Normal Standing Balance Static Standing Balance Ability Fair Dynamic Standing Balance Ability Fair Device Used [facility] Posada Fall Scale Copyright Permission PT-OP-E Functional Tests Start: 09/26/22 12:12 Freq: Status: Active Protocol: Document 09/26/22 10:30 DCW (Rec: 09/26/22 12:18 DCW [id number]) Functional Tests 2 Minute Walk Test Distance 180' Device Used SPC Comments 1.5 ft/sec Dynamic Gait Index (DGI) Score 1224 DGI Impairment Rating 40 to <60% Impaired (Score 10- 14) Timed Up and Go (TUG) Score 13.74 /c SPC Comments Three-trial average (15.80, 12 .74, 12.68) TUG Impairment Rating 40 to <60% Impaired (Score 14- 15) PT-OP-G Mobility & Gait Start: 09/26/22 12:12 Freq: Status: Active Protocol: Document 09/26/22 10:30 DCW (Rec: 09/26/22 12:31 DCW [id number]) OP Gait Assessment Gait Gait Assistance Required: Standby Assistance Distance (Feet) 180 Assistive Devices Assistive Device Gait Belt,Straight Cane Gait Deviations General Gait Pattern Ataxic,Decreased Stride Length ,Decreased Feet Clearance, Flexed Trunk,Narrow Based Gait Factors Limiting Gait Function Factors Limiting Gait Function Decreased Activity Tolerance, Decreased Strength, Incoordination,Poor Balance Stair Climbing Evaluation Evaluation Level of Assist On Stairs Standby Assistance Devices Stair Climbing Assistive Devices Right Railing Technique/Endurance Stair Climbing Direction Ascend and Descend Stair Climbing Technique Step Over Step Number of Steps Climbed 4 PT-OP-M Strength Start: 09/26/22 12:12 Freq: Status: Active Protocol: Document 09/26/22 10:30 DCW (Rec: 09/26/22 12:31 DCW [id number]) Hip Strength Hip Manual Muscle Testing Right Flexion (L2) 3 Fair Extension (S1) 4- Good- Abduction 3+ Fair+ Adduction 4- Good- External Rotation 3+ Fair+ Internal Rotation 4- Good- Left Flexion (L2) 4+ Good+ Extension (S1) 5 Normal Abduction 4+ Good+ Adduction 4+ Good+ External Rotation 4 Good Internal Rotation 4- Good- Knee Strength Knee Manual Muscle Testing Right Flexion (S2) 3+ Fair+ Extension (L3) 4 Good Left Flexion (S2) 4 Good Extension (L3) 4+ Good+ Ankle/Foot Strength Ankle and Foot Manual Muscle Testing Right Dorsiflexion (L4) 3- Fair- Left Dorsiflexion (L4) 4+ Good+ PT-OP-Q Treatments Start: 09/26/22 12:12 Freq: Status: Active Protocol: Document 10/10/22 10:30 DCW (Rec: 10/10/22 11:12 DCW [id number]) Cardio Equipment Recumbent Elliptical (BiodMRO) Duration (Minutes) 6 Resistance 4 Seat Position 8 Gym Equipment Shuttle Balance 1 Details Red - Wide ARMANDO Comments Wide ARMANDO (Perturbations, EO/EC ), Staggered Stance Neuro Re-Education Treatment Balance Activities Hurdles Details Hurdles/foam BOSU Lunge Details BOSU Lunge Surface Blue BOSU Coordination Activities Cone taps Details LE cone-taps Equipment 5# ankle weights Comments crossing midline, LUE support PT-OP-T Assessment and Plan Start: 09/26/22 12:12 Freq: Status: Active Protocol: Document 10/10/22 10:30 DCW (Rec: 10/10/22 11:12 DCW [id number]) Physical Therapy Assessment Impairments Impairments Activity Tolerance,Balance, Coordination,Functional Activities,Functional Mobility ,Gait,Soft Tissue Mobility, Strength,Tone Goals Three Impairment Pt experiencing increased weakness of right hip flexion (3/5) Impairment Loss of balance without fall 2x/day in home. Fci Goal (LTG) Pt to increase MMT score of right hip flexion to at least 4-/5 in order to improve ability to lift right leg into her car without use of her UEs. LTG Duration 12/25/22 Two Impairment Pt scores as a falls risk, per DGI (06/30) Impairment Hip: Flexion 5/5 L, 4+/5 R; ER 3-/5 R, 2/5 L; IR 4+/5 bilaterally. Knee: Flex: 4/5 bilaterally; Ext: 3+/5 R, 5/5 L Ankle: Left: generally 5/5; Right: DF 2+/5, PF 3+/5, IV 3/ 5, EV 2/5. Concaving Machine Operator Goal (LTG) Pt to improve DGI score by at least 5 points to 17 to show a decrease in falls risk. LTG Duration 12/25 One Impairment Pt does not have an appropriate home exercise program Impairment Pt goals received 05/30/21: Strengthen legs (R) & upper body; Hips feel like in alignment after sitting (R hip feels like it is forward). Short Term Goal (STG) Pt to be independent and compliant with an appropriate HEP STG Duration 11/26/22 Assessment Summary Assessment Pt showing some progress both with balance and activity tolerance, able to perform hurdles/foam with min Ax1, did not require many rest breaks, although right leg tiring easily, especially hip flexion. Physical Therapy Plan Frequency and Duration Frequency of Treatment 2x/Week Plan of Care Start Date 09/26/22 Plan of Care End Date 12/25/22 Therapeutic Interventions Therapeutic Interventions Balance Training,Coordination Training,Gait Training,Home Exercise Program,Joint Mobilizations,Manual Therapy, Neuromuscular Re-education, Patient/Caregiver Education, Self-Care/Home Management,Soft Tissue Mobilization, Therapeutic Activities, Therapeutic Exercises Next Visit Focus/Plan Next Note Type Treatment Note Next Visit Plan LE strengthening, gait and balance training, improving activity tolerance
--- NOTE | 2022-10-15 17:36 | PT.OTN ---
Current Diagnoses Multiple sclerosis (10/15/22) Muscle weakness (generalized) (10/15/22) Other abnormalities of gait and mobility (10/15/22) Repeated falls (10/15/22) Other symptoms and signs involving the musculoskeletal system (10/15/22) Physical Therapy Treatment Note PT-OP-A Visit Information Start: 09/26/22 12:12 Freq: Status: Active Protocol: Document 10/15/22 16:08 NBM (Rec: 10/15/22 17:28 [facility] [id number]) Out-Patient Physical Therapy Visit Information Visit Information Visit Type Treatment Note Visit Start Time 16:05 Visit Stop Time 16:50 Total Visit Minutes 45 Visit Number 6 Number of VP SOFTWARE SUPPORT Visits 1 PT-OP-B Current Condition Start: 09/26/22 12:12 Freq: Status: Active Protocol: Document 09/26/22 10:30 DCW (Rec: 09/26/22 12:40 DCW [id number]) Current Condition History of Current Condition Onset Date Multi-year history Current Complaints Weakness, falls, gait difficulties, imbalance secondary to MS History of Current Condition Pt is a 72 year old female with a long-standing history of MS who has been treated at this clinic multiple times overthe years, returning today for a new evaluation. Pt reports her symptoms have been worsening, she feels her right leg has been weaker recently, making it difficult to lift it up into her car or into bed without assisting it with her arms. Notes that she hasn't been falling much ( admits to ~1x/month). Has been doing yoga 2x/week as well as prior HEP from PT 2x/week. Pt 's biggest complaint is that she is unable to walk fast enough to keep up with her boyfriend when out for a walk. Notes she usually hangs on to him when they are out walking , but otherwise uses her SPC. Does wear a R AFO secondary to foot drop. Treatment Goals Patient/Caregiver Goals I need to learn how to walk better and faster without tripping over myself. PT-OP-C Subjective Start: 09/26/22 12:12 Freq: Status: Active Protocol: Document 10/15/22 16:08 NBM (Rec: 10/15/22 17:28 NBM [id number]) OP-PT Subjective Patient Comments Patient Comments Pt reports she did all of her ex's today and also gave her dog a bath, and it's later in the day so she's tired. Her legs are really tired but not fatigued when she does all of her ex's, and wonders if she's overdoing it. PT-OP-D Balance Start: 09/26/22 12:12 Freq: Status: Active Protocol: Document 09/26/22 10:30 DCW (Rec: 09/26/22 12:18 DCW [id number]) OP-PT Balance Assessment Sitting Balance Static Sitting Balance Ability Normal Dynamic Sitting Balance Ability Normal Standing Balance Static Standing Balance Ability Fair Dynamic Standing Balance Ability Fair Device Used SPC Posada Fall Scale Copyright Permission PT-OP-E Functional Tests Start: 09/26/22 12:12 Freq: Status: Active Protocol: Document 09/26/22 10:30 DCW (Rec: 09/26/22 12:18 DCW [id number]) Functional Tests 2 Minute Walk Test Distance 180' Device Used SPC Comments 1.5 ft/sec Dynamic Gait Index (DGI) Score 12/24 DGI Impairment Rating 40 to <60% Impaired (Score 10- 14) Timed Up and Go (TUG) Score 13.74 /c SPC Comments Three-trial average (15.80, 12 .74, 12.68) TUG Impairment Rating 40 to <60% Impaired (Score 14- 15) PT-OP-G Mobility & Gait Start: 09/26/22 12:12 Freq: Status: Active Protocol: Document 09/26/22 10:30 DCW (Rec: 09/26/22 12:31 DCW [id number]) OP Gait Assessment Gait Gait Assistance Required: Standby Assistance Distance (Feet) 180 Assistive Devices Assistive Device Gait Belt,Straight Cane Gait Deviations General Gait Pattern Ataxic,Decreased Stride Length ,Decreased Feet Clearance, Flexed Trunk,Narrow Based Gait Factors Limiting Gait Function Factors Limiting Gait Function Decreased Activity Tolerance, Decreased Strength, Incoordination,Poor Balance Stair Climbing Evaluation Evaluation Level of Assist On Stairs Standby Assistance Devices Stair Climbing Assistive Devices Right Railing Technique/Endurance Stair Climbing Direction Ascend and Descend Stair Climbing Technique Step Over Step Number of Steps Climbed 4 PT-OP-M Strength Start: 09/26/22 12:12 Freq: Status: Active Protocol: Document 09/26/22 10:30 DCW (Rec: 09/26/22 12:31 DCW [id number]) Hip Strength Hip Manual Muscle Testing Right Flexion (L2) 3 Fair Extension (S1) 4- Good- Abduction 3+ Fair+ Adduction 4- Good- External Rotation 3+ Fair+ Internal Rotation 4- Good- Left Flexion (L2) 4+ Good+ Extension (S1) 5 Normal Abduction 4+ Good+ Adduction 4+ Good+ External Rotation 4 Good Internal Rotation 4- Good- Knee Strength Knee Manual Muscle Testing Right Flexion (S2) 3+ Fair+ Extension (L3) 4 Good Left Flexion (S2) 4 Good Extension (L3) 4+ Good+ Ankle/Foot Strength Ankle and Foot Manual Muscle Testing Right Dorsiflexion (L4) 3- Fair- Left Dorsiflexion (L4) 4+ Good+ PT-OP-Q Treatments Start: 09/26/22 12:12 Freq: Status: Active Protocol: Document 10/15/22 16:08 [facility] (Rec: 10/15/22 17:28 [facility] [id number]) Cardio Equipment Recumbent Elliptical (BiodTOBESOFT) Duration (Minutes) 8 Resistance 4 Seat Position 8 Therapeutic Exercises Sitting Exercises hamstring stretch Side bilateral Equipment Used mat table Reps/Minutes x30s ea Comments cues for hip hinge hip abduction Sitting Exercise Name seated clamshells Side bilateral Resistance purple TB Reps/Minutes x10 Comments vc for foot placement Standing Exercises standing hip extension Side bilateral Resistance purple Tb Reps/Minutes x10 ea Comments vc for maintaing hip width Neuro Re-Education Treatment Balance Activities Corner Balance Details EO/EC: NBOS, staggered B, tandem, SLS Surface carpet Equipment estrada, chair, gait belt Reps/Duration 7' Hurdles Details Hurdles w/ and w/o SPC Surface carpet Equipment gait belt, CGA>Alex Reps/Duration 6 6 hurdles x 4 Comments cues for RLE hip flexion/high knee instead of circumduction. 1 LOB to the left w/ appropriate stepping strategy for recovery. Self-Care/Home Management Treatment Education Patient Education Home Exercise Program,Safety Other Education -Reviewed pt's HEP and personal HEP (quadruped: cat/ cow, contralateral UE/LE lift; supine: bug UE/LE, KTC w / ankle pumps (other leg extended w/ ankle DF); standing: step-ups, sit to stand, sometimes squats at the sink.) Pt expresses concern that she completes all ex's at once and her legs are not fatigued but are tired, and if purpose is to increase strength she will continue to do them all but otherwise would like to spread her ex's out. VP SOFTWARE SUPPORT to communicate w/ PT who will advise pt at 10/17/22 appt. Pt encouraged to use pacing strategies by alternating ex's in the meantime. -Pt advised to perform resisted band ex's bilaterally instead of just on RLE. PT-OP-T Assessment and Plan Start: 09/26/22 12:12 Freq: Status: Active Protocol: Document 10/15/22 16:08 [facility] (Rec: 10/15/22 17:28 [facility] [id number]) Physical Therapy Assessment Impairments Impairments Activity Tolerance,Balance, Coordination,Functional Activities,Functional Mobility ,Gait,Soft Tissue Mobility, Strength,Tone Goals Three Impairment Pt experiencing increased weakness of right hip flexion (3/5) Impairment Loss of balance without fall 2x/day in home. Electronics Assembler And Tester Goal (LTG) Pt to increase MMT score of right hip flexion to at least 4-/5 in order to improve ability to lift right leg into her car without use of her UEs. LTG Duration 12/25/22 Two Impairment Pt scores as a falls risk, per DGI (06/30) Impairment Hip: Flexion 5/5 L, 4+/5 R; ER 3-/5 R, 2/5 L; IR 4+/5 bilaterally. Knee: Flex: 4/5 bilaterally; Ext: 3+/5 R, 5/5 L Ankle: Left: generally 5/5; Right: DF 2+/5, PF 3+/5, IV 3/ 5, EV 2/5. Electronics Assembler And Tester Goal (LTG) Pt to improve DGI score by at least 5 points to to show a decrease in falls risk. LTG Duration 12/25 One Impairment Pt does not have an appropriate home exercise program Impairment Pt goals received 05/30/21: Strengthen legs (R) & upper body; Hips feel like in alignment after sitting (R hip feels like it is forward). Short Term Goal (STG) Pt to be independent and compliant with an appropriate HEP STG Duration 11/26/22 Assessment Summary Assessment Verenice requires cues w/ hurdles for RLE hip flexion/ high knee instead of circumduction, and has 1 LOB to the left w/ appropriate stepping strategy for recovery Alex. She demonstrates increased activity tolerance w / minimal rest breaks and is encouraged to use pacing strategies for energy conservation.
--- NOTE | 2022-10-17 11:16 | PT.OTN ---
Current Diagnoses Multiple sclerosis (10/17/22) Muscle weakness (generalized) (10/17/22) Other abnormalities of gait and mobility (10/17/22) Repeated falls (10/17/22) Other symptoms and signs involving the musculoskeletal system (10/17/22) Physical Therapy Treatment Note PT-OP-A Visit Information Start: 09/26/22 12:12 Freq: Status: Active Protocol: Document 10/17/22 10:30 DCW (Rec: 10/17/22 11:16 DCW [id number]) Out-Patient Physical Therapy Visit Information Visit Information Visit Type Treatment Note Visit Start Time 10:30 Visit Stop Time 11:15 Total Visit Minutes 45 Visit Number 7 Number of TECHNICAL SPECIALIST Visits 0 Evaluation Information Evaluation Date 09/26/22 PT-OP-B Current Condition Start: 09/26/22 12:12 Freq: Status: Active Protocol: Document 09/26/22 10:30 DCW (Rec: 09/26/22 12:40 DCW [id number]) Current Condition History of Current Condition Onset Date Multi-year history Current Complaints Weakness, falls, gait difficulties, imbalance secondary to MS History of Current Condition Pt is a 72 year old female with a long-standing history of MS who has been treated at this clinic multiple times overthe years, returning today for a new evaluation. Pt reports her symptoms have been worsening, she feels her right leg has been weaker recently, making it difficult to lift it up into her car or into bed without assisting it with her arms. Notes that she hasn't been falling much ( admits to ~1x/month). Has been doing yoga 2x/week as well as prior HEP from PT 2x/week. Pt 's biggest complaint is that she is unable to walk fast enough to keep up with her boyfriend when out for a walk. Notes she usually hangs on to him when they are out walking , but otherwise uses her SPC. Does wear a R AFO secondary to foot drop. Treatment Goals Patient/Caregiver Goals I need to learn how to walk better and faster without tripping over myself. PT-OP-C Subjective Start: 09/26/22 12:12 Freq: Status: Active Protocol: Document 10/17/22 10:30 DCW (Rec: 10/17/22 11:16 DCW [id number]) OP-PT Subjective Patient Comments Patient Comments My body was exhausted yesterday. Notes that between PT Saturday and exercising on her own, she over did a lot. PT-OP-D Balance Start: 09/26/22 12:12 Freq: Status: Active Protocol: Document 09/26/22 10:30 DCW (Rec: 09/26/22 12:18 DCW [id number]) OP-PT Balance Assessment Sitting Balance Static Sitting Balance Ability Normal Dynamic Sitting Balance Ability Normal Standing Balance Static Standing Balance Ability Fair Dynamic Standing Balance Ability Fair Device Used SPC Posada Fall Scale Copyright Permission PT-OP-E Functional Tests Start: 09/26/22 12:12 Freq: Status: Active Protocol: Document 09/26/22 10:30 DCW (Rec: 09/26/22 12:18 DCW [id number]) Functional Tests 2 Minute Walk Test Distance 180' Device Used SPC Comments 1.5 ft/sec Dynamic Gait Index (DGI) Score 12/24 DGI Impairment Rating 40 to <60% Impaired (Score 10- 14) Timed Up and Go (TUG) Score 13.74 /c SPC Comments Three-trial average (15.80, 12 .74, 12.68) TUG Impairment Rating 40 to <60% Impaired (Score 14- 15) PT-OP-G Mobility & Gait Start: 09/26/22 12:12 Freq: Status: Active Protocol: Document 09/26/22 10:30 DCW (Rec: 09/26/22 12:31 DCW [id number]) OP Gait Assessment Gait Gait Assistance Required: Standby Assistance Distance (Feet) 180 Assistive Devices Assistive Device Gait Belt,Straight Cane Gait Deviations General Gait Pattern Ataxic,Decreased Stride Length ,Decreased Feet Clearance, Flexed Trunk,Narrow Based Gait Factors Limiting Gait Function Factors Limiting Gait Function Decreased Activity Tolerance, Decreased Strength, Incoordination,Poor Balance Stair Climbing Evaluation Evaluation Level of Assist On Stairs Standby Assistance Devices Stair Climbing Assistive Devices Right Railing Technique/Endurance Stair Climbing Direction Ascend and Descend Stair Climbing Technique Step Over Step Number of Steps Climbed 4 PT-OP-M Strength Start: 09/26/22 12:12 Freq: Status: Active Protocol: Document 09/26/22 10:30 DCW (Rec: 09/26/22 12:31 DCW [id number]) Hip Strength Hip Manual Muscle Testing Right Flexion (L2) 3 Fair Extension (S1) 4- Good- Abduction 3+ Fair+ Adduction 4- Good- External Rotation 3+ Fair+ Internal Rotation 4- Good- Left Flexion (L2) 4+ Good+ Extension (S1) 5 Normal Abduction 4+ Good+ Adduction 4+ Good+ External Rotation 4 Good Internal Rotation 4- Good- Knee Strength Knee Manual Muscle Testing Right Flexion (S2) 3+ Fair+ Extension (L3) 4 Good Left Flexion (S2) 4 Good Extension (L3) 4+ Good+ Ankle/Foot Strength Ankle and Foot Manual Muscle Testing Right Dorsiflexion (L4) 3- Fair- Left Dorsiflexion (L4) 4+ Good+ PT-OP-Q Treatments Start: 09/26/22 12:12 Freq: Status: Active Protocol: Document 10/17/22 10:30 DCW (Rec: 10/17/22 11:16 DCW [id number]) Cardio Equipment Recumbent Stepper (Sci-Fit) Duration (Minutes) 6 Resistance 4 Seat Position 9 Gym Equipment Shuttle Balance 1 Details Red - Wide ARMANDO Comments Wide ARMANDO (Perturbations, EO/EC ), Staggered Stance Neuro Re-Education Treatment Balance Activities Hurdles Details Hurdles/foam Comments Fwd, Lateral BOSU Lunge Details BOSU Lunge Surface Blue BOSU PT-OP-T Assessment and Plan Start: 09/26/22 12:12 Freq: Status: Active Protocol: Document 10/17/22 10:30 DCW (Rec: 10/17/22 11:16 DCW [id number]) Physical Therapy Assessment Impairments Impairments Activity Tolerance,Balance, Coordination,Functional Activities,Functional Mobility ,Gait,Soft Tissue Mobility, Strength,Tone Goals Three Impairment Pt experiencing increased weakness of right hip flexion (3/5) Impairment Loss of balance without fall 2x/day in home. Regional Ehs Manager Goal (LTG) Pt to increase MMT score of right hip flexion to at least 4-/5 in order to improve ability to lift right leg into her car without use of her UEs. LTG Duration 12/25/22 Two Impairment Pt scores as a falls risk, per DGI (06/30) Impairment Hip: Flexion 5/5 L, 4+/5 R; ER 3-/5 R, 2/5 L; IR 4+/5 bilaterally. Knee: Flex: 4/5 bilaterally; Ext: 3+/5 R, 5/5 L Ankle: Left: generally 5/5; Right: DF 2+/5, PF 3+/5, IV 3/ 5, EV 2/5. Regional Ehs Manager Goal (LTG) Pt to improve DGI score by at least 5 points to 17/24 to show a decrease in falls risk. LTG Duration 12/25 One Impairment Pt does not have an appropriate home exercise program Impairment Pt goals received 05/30/21: Strengthen legs (R) & upper body; Hips feel like in alignment after sitting (R hip feels like it is forward). Short Term Goal (STG) Pt to be independent and compliant with an appropriate HEP STG Duration 11/26/22 Assessment Summary Assessment Discussed pt's tendency to over-do her exercises and tire herself out, discussed importance of pacing herself. Recommended spreading her current HEP program out over 2 -3 days instead of doing everything every day, especially with pt adding yoga 2x/week. Physical Therapy Plan Frequency and Duration Frequency of Treatment 2x/Week Plan of Care Start Date 09/26/22 Plan of Care End Date 12/25/22 Therapeutic Interventions Therapeutic Interventions Balance Training,Coordination Training,Gait Training,Home Exercise Program,Joint Mobilizations,Manual Therapy, Neuromuscular Re-education, Patient/Caregiver Education, Self-Care/Home Management,Soft Tissue Mobilization, Therapeutic Activities, Therapeutic Exercises Next Visit Focus/Plan Next Note Type Treatment Note Next Visit Plan LE strengthening, gait and balance training, improving activity tolerance
--- NOTE | 2022-10-23 11:14 | PT.OTN ---
Current Diagnoses Multiple sclerosis (10/23/22) Muscle weakness (generalized) (10/23/22) Other abnormalities of gait and mobility (10/23/22) Repeated falls (10/23/22) Other symptoms and signs involving the musculoskeletal system (10/23/22) Physical Therapy Treatment Note PT-OP-A Visit Information Start: 09/26/22 12:12 Freq: Status: Active Protocol: Document 10/23/22 10:30 DCW (Rec: 10/23/22 11:14 DCW [id number]) Out-Patient Physical Therapy Visit Information Visit Information Visit Type Treatment Note Visit Start Time 10:30 Visit Stop Time 11:15 Total Visit Minutes 45 Visit Number 8 Number of RELAY TESTER HELPER Visits 0 Evaluation Information Evaluation Date 09/26/22 PT-OP-B Current Condition Start: 09/26/22 12:12 Freq: Status: Active Protocol: Document 09/26/22 10:30 DCW (Rec: 09/26/22 12:40 DCW [id number]) Current Condition History of Current Condition Onset Date Multi-year history Current Complaints Weakness, falls, gait difficulties, imbalance secondary to MS History of Current Condition Pt is a 72 year old female with a long-standing history of MS who has been treated at this clinic multiple times overthe years, returning today for a new evaluation. Pt reports her symptoms have been worsening, she feels her right leg has been weaker recently, making it difficult to lift it up into her car or into bed without assisting it with her arms. Notes that she hasn't been falling much ( admits to ~1x/month). Has been doing yoga 2x/week as well as prior HEP from PT 2x/week. Pt 's biggest complaint is that she is unable to walk fast enough to keep up with her boyfriend when out for a walk. Notes she usually hangs on to him when they are out walking , but otherwise uses her SPC. Does wear a R AFO secondary to foot drop. Treatment Goals Patient/Caregiver Goals I need to learn how to walk better and faster without tripping over myself. PT-OP-C Subjective Start: 09/26/22 12:12 Freq: Status: Active Protocol: Document 10/23/22 10:30 DCW (Rec: 10/23/22 11:14 DCW [id number]) OP-PT Subjective Patient Comments Patient Comments I'm feeling real good. PT-OP-D Balance Start: 09/26/22 12:12 Freq: Status: Active Protocol: Document 09/26/22 10:30 DCW (Rec: 09/26/22 12:18 DCW [id number]) OP-PT Balance Assessment Sitting Balance Static Sitting Balance Ability Normal Dynamic Sitting Balance Ability Normal Standing Balance Static Standing Balance Ability Fair Dynamic Standing Balance Ability Fair Device Used SPC Posada Fall Scale Copyright Permission PT-OP-E Functional Tests Start: 09/26/22 12:12 Freq: Status: Active Protocol: Document 09/26/22 10:30 DCW (Rec: 09/26/22 12:18 DCW [id number]) Functional Tests 2 Minute Walk Test Distance 180' Device Used SPC Comments 1.5 ft/sec Dynamic Gait Index (DGI) Score 12/24 DGI Impairment Rating 40 to <60% Impaired (Score 10- 14) Timed Up and Go (TUG) Score 13.74 /c SPC Comments Three-trial average (15.80, 12 .74, 12.68) TUG Impairment Rating 40 to <60% Impaired (Score 14- 15) PT-OP-G Mobility & Gait Start: 09/26/22 12:12 Freq: Status: Active Protocol: Document 09/26/22 10:30 DCW (Rec: 09/26/22 12:31 DCW [id number]) OP Gait Assessment Gait Gait Assistance Required: Standby Assistance Distance (Feet) 180 Assistive Devices Assistive Device Gait Belt,Straight Cane Gait Deviations General Gait Pattern Ataxic,Decreased Stride Length ,Decreased Feet Clearance, Flexed Trunk,Narrow Based Gait Factors Limiting Gait Function Factors Limiting Gait Function Decreased Activity Tolerance, Decreased Strength, Incoordination,Poor Balance Stair Climbing Evaluation Evaluation Level of Assist On Stairs Standby Assistance Devices Stair Climbing Assistive Devices Right Railing Technique/Endurance Stair Climbing Direction Ascend and Descend Stair Climbing Technique Step Over Step Number of Steps Climbed 4 PT-OP-M Strength Start: 09/26/22 12:12 Freq: Status: Active Protocol: Document 09/26/22 10:30 DCW (Rec: 09/26/22 12:31 DCW [id number]) Hip Strength Hip Manual Muscle Testing Right Flexion (L2) 3 Fair Extension (S1) 4- Good- Abduction 3+ Fair+ Adduction 4- Good- External Rotation 3+ Fair+ Internal Rotation 4- Good- Left Flexion (L2) 4+ Good+ Extension (S1) 5 Normal Abduction 4+ Good+ Adduction 4+ Good+ External Rotation 4 Good Internal Rotation 4- Good- Knee Strength Knee Manual Muscle Testing Right Flexion (S2) 3+ Fair+ Extension (L3) 4 Good Left Flexion (S2) 4 Good Extension (L3) 4+ Good+ Ankle/Foot Strength Ankle and Foot Manual Muscle Testing Right Dorsiflexion (L4) 3- Fair- Left Dorsiflexion (L4) 4+ Good+ PT-OP-Q Treatments Start: 09/26/22 12:12 Freq: Status: Active Protocol: Document 10/23/22 10:30 DCW (Rec: 10/23/22 11:14 DCW [id number]) Cardio Equipment Recumbent Elliptical (Biodex) Duration (Minutes) 6 Resistance 4 Seat Position 8 Gym Equipment Shuttle Balance 1 Details Red - Wide ARMANDO Comments Wide ARMANDO (EO/EC), Staggered Stance Therapeutic Exercises Standing Exercises standing hip extension Side bilateral Resistance Red Reps/Minutes x10 ea Neuro Re-Education Treatment Balance Activities Hurdles Details Hurdles/foam Comments Fwd, Lateral BOSU Lunge Details BOSU Lunge Surface Blue BOSU PT-OP-T Assessment and Plan Start: 09/26/22 12:12 Freq: Status: Active Protocol: Document 10/23/22 10:30 DCW (Rec: 10/23/22 11:14 DCW [id number]) Physical Therapy Assessment Impairments Impairments Activity Tolerance,Balance, Coordination,Functional Activities,Functional Mobility ,Gait,Soft Tissue Mobility, Strength,Tone Goals Three Impairment Pt experiencing increased weakness of right hip flexion (3/5) Impairment Loss of balance without fall 2x/day in home. Long-Term Goal (LTG) Pt to increase MMT score of right hip flexion to at least 4-/5 in order to improve ability to lift right leg into her car without use of her UEs. LTG Duration 12/25/22 Two Impairment Pt scores as a falls risk, per DGI (06/30) Impairment Hip: Flexion 5/5 L, 4+/5 R; ER 3-/5 R, 2/5 L; IR 4+/5 bilaterally. Knee: Flex: 4/5 bilaterally; Ext: 3+/5 R, 5/5 L Ankle: Left: generally 5/5; Right: DF 2+/5, PF 3+/5, IV 3/ 5, EV 2/5. Long-Term Goal (LTG) Pt to improve DGI score by at least 5 points to to show a decrease in falls risk. LTG Duration 12/25 One Impairment Pt does not have an appropriate home exercise program Impairment Pt goals received 05/30/21: Strengthen legs (R) & upper body; Hips feel like in alignment after sitting (R hip feels like it is forward). Short Term Goal (STG) Pt to be independent and compliant with an appropriate HEP STG Duration 11/26/22 Assessment Summary Assessment Pt doing better with pacing, not trying to overdo it today during treatment session. Pt significantly less fatigued today. Physical Therapy Plan Frequency and Duration Frequency of Treatment 2x/Week Plan of Care Start Date 09/26/22 Plan of Care End Date 12/25/22 Therapeutic Interventions Therapeutic Interventions Balance Training,Coordination Training,Gait Training,Home Exercise Program,Joint Mobilizations,Manual Therapy, Neuromuscular Re-education, Patient/Caregiver Education, Self-Care/Home Management,Soft Tissue Mobilization, Therapeutic Activities, Therapeutic Exercises Next Visit Focus/Plan Next Note Type Treatment Note Next Visit Plan LE strengthening, gait and balance training, improving activity tolerance
--- NOTE | 2022-10-30 10:09 | PT.OTN ---
Current Diagnoses Multiple sclerosis (10/30/22) Muscle weakness (generalized) (10/30/22) Other abnormalities of gait and mobility (10/30/22) Repeated falls (10/30/22) Other symptoms and signs involving the musculoskeletal system (10/30/22) Physical Therapy Treatment Note PT-OP-A Visit Information Start: 09/26/22 12:12 Freq: Status: Active Protocol: Document 10/30/22 09:12 NBM (Rec: 10/30/22 10:07 NBM [id number]) Out-Patient Physical Therapy Visit Information Visit Information Visit Type Treatment Note Visit Start Time 09:05 Visit Stop Time 09:48 Total Visit Minutes 43 Visit Number 9 Number of NAIL MILL WORKER Visits 1 PT-OP-B Current Condition Start: 09/26/22 12:12 Freq: Status: Active Protocol: Document 09/26/22 10:30 DCW (Rec: 09/26/22 12:40 DCW [id number]) Current Condition History of Current Condition Onset Date Multi-year history Current Complaints Weakness, falls, gait difficulties, imbalance secondary to MS History of Current Condition Pt is a 72 year old female with a long-standing history of MS who has been treated at this clinic multiple times overthe years, returning today for a new evaluation. Pt reports her symptoms have been worsening, she feels her right leg has been weaker recently, making it difficult to lift it up into her car or into bed without assisting it with her arms. Notes that she hasn't been falling much ( admits to ~1x/month). Has been doing yoga 2x/week as well as prior HEP from PT 2x/week. Pt 's biggest complaint is that she is unable to walk fast enough to keep up with her boyfriend when out for a walk. Notes she usually hangs on to him when they are out walking , but otherwise uses her SPC. Does wear a R AFO secondary to foot drop. Treatment Goals Patient/Caregiver Goals I need to learn how to walk better and faster without tripping over myself. PT-OP-C Subjective Start: 09/26/22 12:12 Freq: Status: Active Protocol: Document 10/30/22 09:12 NBM (Rec: 10/30/22 10:07 NBM [id number]) OP-PT Subjective Patient Comments Patient Comments Pt states she always feels good after PT. She is splitting her ex's up and now is not fatigued the next day from doing all of her ex's at once. PT-OP-D Balance Start: 09/26/22 12:12 Freq: Status: Active Protocol: Document 09/26/22 10:30 DCW (Rec: 09/26/22 12:18 DCW [id number]) OP-PT Balance Assessment Sitting Balance Static Sitting Balance Ability Normal Dynamic Sitting Balance Ability Normal Standing Balance Static Standing Balance Ability Fair Dynamic Standing Balance Ability Fair Device Used SPC Posada Fall Scale Copyright Permission PT-OP-E Functional Tests Start: 09/26/22 12:12 Freq: Status: Active Protocol: Document 09/26/22 10:30 DCW (Rec: 09/26/22 12:18 DCW [id number]) Functional Tests 2 Minute Walk Test Distance 180' Device Used SPC Comments 1.5 ft/sec Dynamic Gait Index (DGI) Score 12/24 DGI Impairment Rating 40 to <60% Impaired (Score 10- 14) Timed Up and Go (TUG) Score 13.74 /c SPC Comments Three-trial average (15.80, 12 .74, 12.68) TUG Impairment Rating 40 to <60% Impaired (Score 14- 15) PT-OP-G Mobility & Gait Start: 09/26/22 12:12 Freq: Status: Active Protocol: Document 09/26/22 10:30 DCW (Rec: 09/26/22 12:31 DCW [id number]) OP Gait Assessment Gait Gait Assistance Required: Standby Assistance Distance (Feet) 180 Assistive Devices Assistive Device Gait Belt,Straight Cane Gait Deviations General Gait Pattern Ataxic,Decreased Stride Length ,Decreased Feet Clearance, Flexed Trunk,Narrow Based Gait Factors Limiting Gait Function Factors Limiting Gait Function Decreased Activity Tolerance, Decreased Strength, Incoordination,Poor Balance Stair Climbing Evaluation Evaluation Level of Assist On Stairs Standby Assistance Devices Stair Climbing Assistive Devices Right Railing Technique/Endurance Stair Climbing Direction Ascend and Descend Stair Climbing Technique Step Over Step Number of Steps Climbed 4 PT-OP-M Strength Start: 09/26/22 12:12 Freq: Status: Active Protocol: Document 09/26/22 10:30 DCW (Rec: 09/26/22 12:31 DCW [id number]) Hip Strength Hip Manual Muscle Testing Right Flexion (L2) 3 Fair Extension (S1) 4- Good- Abduction 3+ Fair+ Adduction 4- Good- External Rotation 3+ Fair+ Internal Rotation 4- Good- Left Flexion (L2) 4+ Good+ Extension (S1) 5 Normal Abduction 4+ Good+ Adduction 4+ Good+ External Rotation 4 Good Internal Rotation 4- Good- Knee Strength Knee Manual Muscle Testing Right Flexion (S2) 3+ Fair+ Extension (L3) 4 Good Left Flexion (S2) 4 Good Extension (L3) 4+ Good+ Ankle/Foot Strength Ankle and Foot Manual Muscle Testing Right Dorsiflexion (L4) 3- Fair- Left Dorsiflexion (L4) 4+ Good+ PT-OP-Q Treatments Start: 09/26/22 12:12 Freq: Status: Active Protocol: Document 10/30/22 09:12 NBM (Rec: 10/30/22 10:07 [facility] [id number]) Cardio Equipment Recumbent Elliptical (Biodex) Duration (Minutes) 8 Resistance 4 Seat Position 8 Gym Equipment Shuttle Balance balance with perturbations Details chains red Comments WBOS EO 1 Details Red - Wide ARMANDO Comments Wide ARMANDO (EO/EC), Staggered Stance, NBOS Therapeutic Exercises Standing Exercises standing hip extension Side bilateral Resistance Red Reps/Minutes x10 ea Comments cues for RLE neutral foot position and hip width Neuro Re-Education Treatment Balance Activities Hurdles Details Hurdles/foam Equipment gait belt, CGA>Alex, DIRECTOR ELECTRONICS prn Reps/Duration 6 6 hurdles x 4 Comments Fwd, Lateral occ cues for R hip flex vs circumduction w/fwd. BOSU Lunge Details BOSU Lunge Surface Blue BOSU Reps/Duration x10 ea Self-Care/Home Management Treatment Education Patient Education Home Exercise Program,Safety Other Education -Reinforced not performing ex' s after yoga in order to conserve energy, and to continue to spread current HEP ex's over 2-3 days. PT-OP-T Assessment and Plan Start: 09/26/22 12:12 Freq: Status: Active Protocol: Document 10/30/22 09:12 NBM (Rec: 10/30/22 10:07 [facility] [id number]) Physical Therapy Assessment Goals Three Impairment Pt experiencing increased weakness of right hip flexion (3/5) Impairment Loss of balance without fall 2x/day in home. Batch Unit Treater Goal (LTG) Pt to increase MMT score of right hip flexion to at least 4-/5 in order to improve ability to lift right leg into her car without use of her UEs. LTG Duration 12/25/22 Two Impairment Pt scores as a falls risk, per DGI (06/30) Impairment Hip: Flexion 5/5 L, 4+/5 R; ER 3-/5 R, 2/5 L; IR 4+/5 bilaterally. Knee: Flex: 4/5 bilaterally; Ext: 3+/5 R, 5/5 L Ankle: Left: generally 5/5; Right: DF 2+/5, PF 3+/5, IV 3/ 5, EV 2/5. Batch Unit Treater Goal (LTG) Pt to improve DGI score by at least 5 points to to show a decrease in falls risk. LTG Duration 12/25 One Impairment Pt does not have an appropriate home exercise program Impairment Pt goals received 05/30/21: Strengthen legs (R) & upper body; Hips feel like in alignment after sitting (R hip feels like it is forward). Short Term Goal (STG) Pt to be independent and compliant with an appropriate HEP STG Duration 11/26/22 Assessment Summary Assessment Elise requires occ cues for R hip flex vs circumduction w/ fwd ambulation over the 6 hurdles. She requires cues for gluteal activation throughout treatment session, especially w/ staggered stance on shuttle balance. Reinforced w/ pt not to perform ex's after yoga in order to conserve energy, and to continue to spread current HEP ex's over 2 -3 days. Pt has one seated rest break this session. Physical Therapy Plan Frequency and Duration Frequency of Treatment 2x/Week Plan of Care Start Date 09/26/22 Plan of Care End Date 12/25/22 Therapeutic Interventions Therapeutic Interventions Balance Training,Coordination Training,Gait Training,Home Exercise Program,Joint Mobilizations,Manual Therapy, Neuromuscular Re-education, Patient/Caregiver Education, Self-Care/Home Management,Soft Tissue Mobilization, Therapeutic Activities, Therapeutic Exercises Next Visit Focus/Plan Next Note Type Treatment Note Next Visit Plan LE strengthening, gait and balance training, improving activity tolerance
--- NOTE | 2022-11-02 11:07 | PT.OTN ---
Current Diagnoses Multiple sclerosis (11/02/22) Muscle weakness (generalized) (11/02/22) Other abnormalities of gait and mobility (11/02/22) Repeated falls (11/02/22) Other symptoms and signs involving the musculoskeletal system (11/02/22) Physical Therapy Treatment Note PT-OP-A Visit Information Start: 09/26/22 12:12 Freq: Status: Active Protocol: Document 11/02/22 10:06 NBM (Rec: 11/02/22 11:06 NBM [id number]) Out-Patient Physical Therapy Visit Information Visit Information Visit Type Treatment Note Visit Start Time 10:02 Visit Stop Time 10:51 Total Visit Minutes 49 Visit Number 10 Number of [employer]ER [employer] Visits 2 PT-OP-B Current Condition Start: 09/26/22 12:12 Freq: Status: Active Protocol: Document 09/26/22 10:30 DCW (Rec: 09/26/22 12:40 DCW [id number]) Current Condition History of Current Condition Onset Date Multi-year history Current Complaints Weakness, falls, gait difficulties, imbalance secondary to MS History of Current Condition Pt is a 72 year old female with a long-standing history of MS who has been treated at this clinic multiple times overthe years, returning today for a new evaluation. Pt reports her symptoms have been worsening, she feels her right leg has been weaker recently, making it difficult to lift it up into her car or into bed without assisting it with her arms. Notes that she hasn't been falling much ( admits to ~1x/month). Has been doing yoga 2x/week as well as prior HEP from PT 2x/week. Pt 's biggest complaint is that she is unable to walk fast enough to keep up with her boyfriend when out for a walk. Notes she usually hangs on to him when they are out walking , but otherwise uses her SPC. Does wear a R AFO secondary to foot drop. Treatment Goals Patient/Caregiver Goals I need to learn how to walk better and faster without tripping over myself. PT-OP-C Subjective Start: 09/26/22 12:12 Freq: Status: Active Protocol: Document 11/02/22 10:06 NBM (Rec: 11/02/22 11:06 NBM [id number]) OP-PT Subjective Patient Comments Patient Comments Pt states she did not go to yoga after last appt but went yesterday and did something to her L side, but it's okay today. She did not have her decaf coffee today. She has an oncology appt today for her face at [facility]. PT-OP-D Balance Start: 09/26/22 12:12 Freq: Status: Active Protocol: Document 09/26/22 10:30 DCW (Rec: 09/26/22 12:18 DCW [id number]) OP-PT Balance Assessment Sitting Balance Static Sitting Balance Ability Normal Dynamic Sitting Balance Ability Normal Standing Balance Static Standing Balance Ability Fair Dynamic Standing Balance Ability Fair Device Used SPC Posada Fall Scale Copyright Permission PT-OP-E Functional Tests Start: 09/26/22 12:12 Freq: Status: Active Protocol: Document 09/26/22 10:30 DCW (Rec: 09/26/22 12:18 DCW [id number]) Functional Tests 2 Minute Walk Test Distance 180' Device Used SPC Comments 1.5 ft/sec Dynamic Gait Index (DGI) Score 12/24 DGI Impairment Rating 40 to <60% Impaired (Score 10- 14) Timed Up and Go (TUG) Score 13.74 /c SPC Comments Three-trial average (15.80, 12 .74, 12.68) TUG Impairment Rating 40 to <60% Impaired (Score 14- 15) PT-OP-G Mobility & Gait Start: 09/26/22 12:12 Freq: Status: Active Protocol: Document 09/26/22 10:30 DCW (Rec: 09/26/22 12:31 DCW [id number]) OP Gait Assessment Gait Gait Assistance Required: Standby Assistance Distance (Feet) 180 Assistive Devices Assistive Device Gait Belt,Straight Cane Gait Deviations General Gait Pattern Ataxic,Decreased Stride Length ,Decreased Feet Clearance, Flexed Trunk,Narrow Based Gait Factors Limiting Gait Function Factors Limiting Gait Function Decreased Activity Tolerance, Decreased Strength, Incoordination,Poor Balance Stair Climbing Evaluation Evaluation Level of Assist On Stairs Standby Assistance Devices Stair Climbing Assistive Devices Right Railing Technique/Endurance Stair Climbing Direction Ascend and Descend Stair Climbing Technique Step Over Step Number of Steps Climbed 4 PT-OP-M Strength Start: 09/26/22 12:12 Freq: Status: Active Protocol: Document 09/26/22 10:30 DCW (Rec: 09/26/22 12:31 DCW [id number]) Hip Strength Hip Manual Muscle Testing Right Flexion (L2) 3 Fair Extension (S1) 4- Good- Abduction 3+ Fair+ Adduction 4- Good- External Rotation 3+ Fair+ Internal Rotation 4- Good- Left Flexion (L2) 4+ Good+ Extension (S1) 5 Normal Abduction 4+ Good+ Adduction 4+ Good+ External Rotation 4 Good Internal Rotation 4- Good- Knee Strength Knee Manual Muscle Testing Right Flexion (S2) 3+ Fair+ Extension (L3) 4 Good Left Flexion (S2) 4 Good Extension (L3) 4+ Good+ Ankle/Foot Strength Ankle and Foot Manual Muscle Testing Right Dorsiflexion (L4) 3- Fair- Left Dorsiflexion (L4) 4+ Good+ PT-OP-Q Treatments Start: 09/26/22 12:12 Freq: Status: Active Protocol: Document 11/02/22 10:06 [facility] (Rec: 11/02/22 11:06 [facility] [id number]) Cardio Equipment Recumbent Elliptical (Biodex) Duration (Minutes) 7 Resistance 4 Seat Position 9>8 Other LE only 4.5 min at Seat 9. feels harder today Gym Equipment Sport Cord Green Exercise Details black/white cord Cord/Resistance green Reps/Duration 5 x 5-8 steps Comments fwd w/ mirror w/ SPC LUE lateral bilaterally w/ SPC 3x6 steps ea lateral w/o SPC B 1x6 steps ea Therapeutic Exercises Sitting Exercises hip adduction Sitting Exercise Name ball squeeze Side bilateral Equipment Used yellow ball Reps/Minutes 5SH x 10 Comments vc no breathholding hamstring stretch Side bilateral Equipment Used mat table Reps/Minutes x30s ea Comments cues for hip hinge seated marching Sitting Exercise Name resisted Side bilateral Resistance purple Tb Equipment Used mesh chair Reps/Minutes x8 ea Comments visual target for R knee max height hip abduction Sitting Exercise Name seated clamshells Side bilateral Resistance purple TB Reps/Minutes x15 Comments vc for foot placement Neuro Re-Education Treatment Balance Activities BOSU Lunge Details BOSU Lunge Surface Blue BOSU Equipment Gait belt Reps/Duration x10 ea Comments no AD, CGA>min A, vc glute squeeze ascending Self-Care/Home Management Treatment Education Patient Education Fall Risk,Safety Other Education Pt expressed concern with this [employer] being able to stop them in case of fall - educated pt that PT/LAB[employer] are trained to use gait belt at waist and/or hand at shoulder to control descent in case of such loss of balance - pt expresses understanding and decreased apprehension. PT-OP-T Assessment and Plan Start: 09/26/22 12:12 Freq: Status: Active Protocol: Document 11/02/22 10:06 [facility] (Rec: 11/02/22 11:06 [facility] [id number]) Physical Therapy Assessment Impairments Impairments Activity Tolerance,Balance, Coordination,Functional Activities,Functional Mobility ,Gait,Soft Tissue Mobility, Strength,Tone Goals Three Impairment Pt experiencing increased weakness of right hip flexion (3/5) Impairment Loss of balance without fall 2x/day in home. Fpc Goal (LTG) Pt to increase MMT score of right hip flexion to at least 4-/5 in order to improve ability to lift right leg into her car without use of her UEs. LTG Duration 12/25/22 Two Impairment Pt scores as a falls risk, per DGI (06/30) Impairment Hip: Flexion 5/5 L, 4+/5 R; ER 3-/5 R, 2/5 L; IR 4+/5 bilaterally. Knee: Flex: 4/5 bilaterally; Ext: 3+/5 R, 5/5 L Ankle: Left: generally 5/5; Right: DF 2+/5, PF 3+/5, IV 3/ 5, EV 2/5. Studio Operation Engineer Goal (LTG) Pt to improve DGI score by at least 5 points to to show a decrease in falls risk. LTG Duration 12/25 One Impairment Pt does not have an appropriate home exercise program Impairment Pt goals received 05/30/21: Strengthen legs (R) & upper body; Hips feel like in alignment after sitting (R hip feels like it is forward). Short Term Goal (STG) Pt to be independent and compliant with an appropriate HEP STG Duration 11/26/22 Assessment Summary Assessment Treatment session focus on core and LE strengthening today. Elise has decreased activity tolerance today so mixed standing and seated ex's accordingly. They tolerated green sport cord well w/ CGA fwd, bwd and bilaterally, and mod A for one LOB with self- recovery when sidestepping to the R w/ SPC in LUE and LLE scissored over RLE - self- awareness of neutral foot positioning and upright posture improves fwd/bwd w/ visual feedback. They require cues for gluteal activation w/ fwd lunges on BOSU dome, w/ CGA>Alex for transition from DL to SL for placing and removing foot without assistive device. Pt expressed concern with this [employer] being able to stop them from falling and is educated that PT/PTAs are trained to use gait belt at waist and/or hand at shoulder to control descent in case of such loss of balance - pt expresses understanding and decreased apprehension. Physical Therapy Plan Frequency and Duration Frequency of Treatment 2x/Week Plan of Care Start Date 09/26/22 Plan of Care End Date 12/25/22 Therapeutic Interventions Therapeutic Interventions Balance Training,Coordination Training,Gait Training,Home Exercise Program,Joint Mobilizations,Manual Therapy, Neuromuscular Re-education, Patient/Caregiver Education, Self-Care/Home Management,Soft Tissue Mobilization, Therapeutic Activities, Therapeutic Exercises Next Visit Focus/Plan Next Note Type Treatment Note Next Visit Plan LE strengthening, gait and balance training, improving activity tolerance
--- NOTE | 2022-11-06 16:32 | PT.OTN ---
Current Diagnoses Multiple sclerosis (11/06/22) Muscle weakness (generalized) (11/06/22) Other abnormalities of gait and mobility (11/06/22) Repeated falls (11/06/22) Other symptoms and signs involving the musculoskeletal system (11/06/22) Physical Therapy Treatment Note PT-OP-A Visit Information Start: 09/26/22 12:12 Freq: Status: Active Protocol: Document 11/06/22 15:45 DCW (Rec: 11/06/22 16:32 DCW [id number]) Out-Patient Physical Therapy Visit Information Visit Information Visit Type Treatment Note Visit Start Time 15:45 Visit Stop Time 16:30 Total Visit Minutes 45 Visit Number 11 Number of PURCHASING MANAGER/SALES Visits 0 Evaluation Information Evaluation Date 09/26/22 PT-OP-B Current Condition Start: 09/26/22 12:12 Freq: Status: Active Protocol: Document 09/26/22 10:30 DCW (Rec: 09/26/22 12:40 DCW [id number]) Current Condition History of Current Condition Onset Date Multi-year history Current Complaints Weakness, falls, gait difficulties, imbalance secondary to MS History of Current Condition Pt is a 72 year old female with a long-standing history of MS who has been treated at this clinic multiple times overthe years, returning today for a new evaluation. Pt reports her symptoms have been worsening, she feels her right leg has been weaker recently, making it difficult to lift it up into her car or into bed without assisting it with her arms. Notes that she hasn't been falling much ( admits to ~1x/month). Has been doing yoga 2x/week as well as prior HEP from PT 2x/week. Pt 's biggest complaint is that she is unable to walk fast enough to keep up with her boyfriend when out for a walk. Notes she usually hangs on to him when they are out walking , but otherwise uses her SPC. Does wear a R AFO secondary to foot drop. Treatment Goals Patient/Caregiver Goals I need to learn how to walk better and faster without tripping over myself. PT-OP-C Subjective Start: 09/26/22 12:12 Freq: Status: Active Protocol: Document 11/06/22 15:45 DCW (Rec: 11/06/22 16:32 DCW [id number]) OP-PT Subjective Patient Comments Patient Comments Pt unfortunately recently diagnosed with b-cell lymphoma , will be undergoing weekly infusions beginning in two weeks. PT-OP-D Balance Start: 09/26/22 12:12 Freq: Status: Active Protocol: Document 09/26/22 10:30 DCW (Rec: 09/26/22 12:18 DCW [id number]) OP-PT Balance Assessment Sitting Balance Static Sitting Balance Ability Normal Dynamic Sitting Balance Ability Normal Standing Balance Static Standing Balance Ability Fair Dynamic Standing Balance Ability Fair Device Used [facility] Posada Fall Scale Copyright Permission PT-OP-E Functional Tests Start: 09/26/22 12:12 Freq: Status: Active Protocol: Document 09/26/22 10:30 DCW (Rec: 09/26/22 12:18 DCW [id number]) Functional Tests 2 Minute Walk Test Distance 180' Device Used SPC Comments 1.5 ft/sec Dynamic Gait Index (DGI) Score 12/24 DGI Impairment Rating 40 to <60% Impaired (Score 10- 14) Timed Up and Go (TUG) Score 13.74 /c SPC Comments Three-trial average (15.80, 12 .74, 12.68) TUG Impairment Rating 40 to <60% Impaired (Score 14- 15) PT-OP-G Mobility & Gait Start: 09/26/22 12:12 Freq: Status: Active Protocol: Document 09/26/22 10:30 DCW (Rec: 09/26/22 12:31 DCW [id number]) OP Gait Assessment Gait Gait Assistance Required: Standby Assistance Distance (Feet) 180 Assistive Devices Assistive Device Gait Belt,Straight Cane Gait Deviations General Gait Pattern Ataxic,Decreased Stride Length ,Decreased Feet Clearance, Flexed Trunk,Narrow Based Gait Factors Limiting Gait Function Factors Limiting Gait Function Decreased Activity Tolerance, Decreased Strength, Incoordination,Poor Balance Stair Climbing Evaluation Evaluation Level of Assist On Stairs Standby Assistance Devices Stair Climbing Assistive Devices Right Railing Technique/Endurance Stair Climbing Direction Ascend and Descend Stair Climbing Technique Step Over Step Number of Steps Climbed 4 PT-OP-M Strength Start: 09/26/22 12:12 Freq: Status: Active Protocol: Document 09/26/22 10:30 DCW (Rec: 09/26/22 12:31 DCW [id number]) Hip Strength Hip Manual Muscle Testing Right Flexion (L2) 3 Fair Extension (S1) 4- Good- Abduction 3+ Fair+ Adduction 4- Good- External Rotation 3+ Fair+ Internal Rotation 4- Good- Left Flexion (L2) 4+ Good+ Extension (S1) 5 Normal Abduction 4+ Good+ Adduction 4+ Good+ External Rotation 4 Good Internal Rotation 4- Good- Knee Strength Knee Manual Muscle Testing Right Flexion (S2) 3+ Fair+ Extension (L3) 4 Good Left Flexion (S2) 4 Good Extension (L3) 4+ Good+ Ankle/Foot Strength Ankle and Foot Manual Muscle Testing Right Dorsiflexion (L4) 3- Fair- Left Dorsiflexion (L4) 4+ Good+ PT-OP-Q Treatments Start: 09/26/22 12:12 Freq: Status: Active Protocol: Document 11/06/22 15:45 DCW (Rec: 11/06/22 16:32 DCW [id number]) Cardio Equipment Recumbent Elliptical (BiodEnomaly) Duration (Minutes) 7 Resistance 5 Seat Position 7 Gym Equipment Shuttle Balance 1 Details Red - Wide ARMANDO Comments Wide ARMANDO (EO/EC, Perturbations ), Staggered Stance, NBOS Therapeutic Exercises Sidelying Exercises Clamshell Sidelying Exercise Name Clamshell Side right Hip Abduction Sidelying Exercise Name Abduction Side right Other Exercises Resisted Ambulation Other Exercise Name Resisted side-stepping Resistance Lv 3 Equipment Used @ rail PT-OP-T Assessment and Plan Start: 09/26/22 12:12 Freq: Status: Active Protocol: Document 11/06/22 15:45 DCW (Rec: 11/06/22 16:32 DCW [id number]) Physical Therapy Assessment Impairments Impairments Activity Tolerance,Balance, Coordination,Functional Activities,Functional Mobility ,Gait,Soft Tissue Mobility, Strength,Tone Goals Three Impairment Pt experiencing increased weakness of right hip flexion (3/5) Impairment Loss of balance without fall 2x/day in home. Medical Coding Instructor Goal (LTG) Pt to increase MMT score of right hip flexion to at least 4-/5 in order to improve ability to lift right leg into her car without use of her UEs. LTG Duration 12/25/22 Two Impairment Pt scores as a falls risk, per DGI (06/30) Impairment Hip: Flexion 5/5 L, 4+/5 R; ER 3-/5 R, 2/5 L; IR 4+/5 bilaterally. Knee: Flex: 4/5 bilaterally; Ext: 3+/5 R, 5/5 L Ankle: Left: generally 5/5; Right: DF 2+/5, PF 3+/5, IV 3/ 5, EV 2/5. Fci Goal (LTG) Pt to improve DGI score by at least 5 points to to show a decrease in falls risk. LTG Duration 12/25 One Impairment Pt does not have an appropriate home exercise program Impairment Pt goals received 05/30/21: Strengthen legs (R) & upper body; Hips feel like in alignment after sitting (R hip feels like it is forward). Short Term Goal (STG) Pt to be independent and compliant with an appropriate HEP STG Duration 11/26/22 Assessment Summary Assessment Focused more today on pt complaints of instability in her right hip when she is walking, feels her right hip sticks out when she takes a step, most likely due to glute med weakness. Added hip abduction and SL Clamshell to current HEP. Physical Therapy Plan Frequency and Duration Frequency of Treatment 2x/Week Plan of Care Start Date 09/26/22 Plan of Care End Date 12/25/22 Therapeutic Interventions Therapeutic Interventions Balance Training,Coordination Training,Gait Training,Home Exercise Program,Joint Mobilizations,Manual Therapy, Neuromuscular Re-education, Patient/Caregiver Education, Self-Care/Home Management,Soft Tissue Mobilization, Therapeutic Activities, Therapeutic Exercises Next Visit Focus/Plan Next Note Type Treatment Note Next Visit Plan LE strengthening, gait and balance training, improving activity tolerance
--- NOTE | 2022-11-08 11:44 | PT.OTN ---
Current Diagnoses Multiple sclerosis (11/08/22) Muscle weakness (generalized) (11/08/22) Other abnormalities of gait and mobility (11/08/22) Repeated falls (11/08/22) Other symptoms and signs involving the musculoskeletal system (11/08/22) Physical Therapy Treatment Note PT-OP-A Visit Information Start: 09/26/22 12:12 Freq: Status: Active Protocol: Document 11/08/22 11:00 DCW (Rec: 11/08/22 11:43 DCW [id number]) Out-Patient Physical Therapy Visit Information Visit Information Visit Type Treatment Note Visit Note 07/17 after Prog note Visit Start Time 11:00 Visit Stop Time 11:45 Total Visit Minutes 45 Visit Number 12 Number of VISCOSITY INSPECTOR Visits 0 Evaluation Information Evaluation Date 09/26/22 PT-OP-B Current Condition Start: 09/26/22 12:12 Freq: Status: Active Protocol: Document 09/26/22 10:30 DCW (Rec: 09/26/22 12:40 DCW [id number]) Current Condition History of Current Condition Onset Date Multi-year history Current Complaints Weakness, falls, gait difficulties, imbalance secondary to MS History of Current Condition Pt is a 72 year old female with a long-standing history of MS who has been treated at this clinic multiple times overthe years, returning today for a new evaluation. Pt reports her symptoms have been worsening, she feels her right leg has been weaker recently, making it difficult to lift it up into her car or into bed without assisting it with her arms. Notes that she hasn't been falling much ( admits to ~1x/month). Has been doing yoga 2x/week as well as prior HEP from PT 2x/week. Pt 's biggest complaint is that she is unable to walk fast enough to keep up with her boyfriend when out for a walk. Notes she usually hangs on to him when they are out walking , but otherwise uses her SPC. Does wear a R AFO secondary to foot drop. Treatment Goals Patient/Caregiver Goals I need to learn how to walk better and faster without tripping over myself. PT-OP-C Subjective Start: 09/26/22 12:12 Freq: Status: Active Protocol: Document 11/08/22 11:00 DCW (Rec: 11/08/22 11:43 DCW [id number]) OP-PT Subjective Patient Comments Patient Comments I did those exercises, I just want to make sure I'm doing them right. PT-OP-D Balance Start: 09/26/22 12:12 Freq: Status: Active Protocol: Document 09/26/22 10:30 DCW (Rec: 09/26/22 12:18 DCW [id number]) OP-PT Balance Assessment Sitting Balance Static Sitting Balance Ability Normal Dynamic Sitting Balance Ability Normal Standing Balance Static Standing Balance Ability Fair Dynamic Standing Balance Ability Fair Device [place] [facility] [place] Copyright Permission PT-OP-E Functional Tests Start: 09/26/22 12:12 Freq: Status: Active Protocol: Document 09/26/22 10:30 DCW (Rec: 09/26/22 12:18 DCW [id number]) Functional Tests 2 Minute Walk Test Distance 180' Device Used SPC Comments 1.5 ft/sec Dynamic Gait Index (DGI) Score 12/24 DGI Impairment Rating 40 to <60% Impaired (Score 10- 14) Timed Up and Go (TUG) Score 13.74 /c SPC Comments Three-trial average (15.80, 12 .74, 12.68) TUG Impairment Rating 40 to <60% Impaired (Score 14- 15) PT-OP-G Mobility & Gait Start: 09/26/22 12:12 Freq: Status: Active Protocol: Document 09/26/22 10:30 DCW (Rec: 09/26/22 12:31 DCW [id number]) OP Gait Assessment Gait Gait Assistance Required: Standby Assistance Distance (Feet) 180 Assistive Devices Assistive Device Gait Belt,Straight Cane Gait Deviations General Gait Pattern Ataxic,Decreased Stride Length ,Decreased Feet Clearance, Flexed Trunk,Narrow Based Gait Factors Limiting Gait Function Factors Limiting Gait Function Decreased Activity Tolerance, Decreased Strength, Incoordination,Poor Balance Stair Climbing Evaluation Evaluation Level of Assist On Stairs Standby Assistance Devices Stair Climbing Assistive Devices Right Railing Technique/Endurance Stair Climbing Direction Ascend and Descend Stair Climbing Technique Step Over Step Number of Steps Climbed 4 PT-OP-M Strength Start: 09/26/22 12:12 Freq: Status: Active Protocol: Document 09/26/22 10:30 DCW (Rec: 09/26/22 12:31 DCW [id number]) Hip Strength Hip Manual Muscle Testing Right Flexion (L2) 3 Fair Extension (S1) 4- Good- Abduction 3+ Fair+ Adduction 4- Good- External Rotation 3+ Fair+ Internal Rotation 4- Good- Left Flexion (L2) 4+ Good+ Extension (S1) 5 Normal Abduction 4+ Good+ Adduction 4+ Good+ External Rotation 4 Good Internal Rotation 4- Good- Knee Strength Knee Manual Muscle Testing Right Flexion (S2) 3+ Fair+ Extension (L3) 4 Good Left Flexion (S2) 4 Good Extension (L3) 4+ Good+ Ankle/Foot Strength Ankle and Foot Manual Muscle Testing Right Dorsiflexion (L4) 3- Fair- Left Dorsiflexion (L4) 4+ Good+ PT-OP-Q Treatments Start: 09/26/22 12:12 Freq: Status: Active Protocol: Document 11/08/22 11:00 DCW (Rec: 11/08/22 11:43 DCW [id number]) Cardio Equipment Recumbent Elliptical (BiodMashable) Duration (Minutes) 7 Resistance 5 Seat Position 7 Other LEs only Gym Equipment Shuttle Balance 1 Details Red - Wide ARMANDO Comments Wide ARMANDO (EO/EC), Staggered Stance Therapeutic Exercises Sidelying Exercises Clamshell Sidelying Exercise Name Clamshell Side right Hip Abduction Sidelying Exercise Name Abduction Side right Neuro Re-Education Treatment Balance Activities Tilt board Details Lateral weight shift BOSU Step-ups Details BOSU Step-ups Surface Blue BOSU BOSU Lunge Details BOSU Lunge Surface Blue BOSU Equipment Gait belt Reps/Duration x10 ea Comments no AD, CGA>min A, vc glute squeeze ascending Tandem Stance Details Step-ups Surface Blue BOSU PT-OP-T Assessment and Plan Start: 09/26/22 12:12 Freq: Status: Active Protocol: Document 11/08/22 11:00 DCW (Rec: 11/08/22 11:43 DCW [id number]) Physical Therapy Assessment Impairments Impairments Activity Tolerance,Balance, Coordination,Functional Activities,Functional Mobility ,Gait,Soft Tissue Mobility, Strength,Tone Goals Three Impairment Pt experiencing increased weakness of right hip flexion (3/5) Impairment Loss of balance without fall 2x/day in home. Academic Affairs Vice President Goal (LTG) Pt to increase MMT score of right hip flexion to at least 4-/5 in order to improve ability to lift right leg into her car without use of her UEs. LTG Duration 12/25/22 Two Impairment Pt scores as a falls risk, per DGI (06/30) Impairment Hip: Flexion 5/5 L, 4+/5 R; ER 3-/5 R, 2/5 L; IR 4+/5 bilaterally. Knee: Flex: 4/5 bilaterally; Ext: 3+/5 R, 5/5 L Ankle: Left: generally 5/5; Right: DF 2+/5, PF 3+/5, IV 3/ 5, EV 2/5. Academic Affairs Vice President Goal (LTG) Pt to improve DGI score by at least 5 points to to show a decrease in falls risk. LTG Duration 12/25 One Impairment Pt does not have an appropriate home exercise program Impairment Pt goals received 05/30/21: Strengthen legs (R) & upper body; Hips feel like in alignment after sitting (R hip feels like it is forward). Short Term Goal (STG) Pt to be independent and compliant with an appropriate HEP STG Duration 11/26/22 Assessment Summary Assessment Reviewed recent additions to HEP, pt doing well with maintaining proper hip positioning. Continue to focus on improving activity tolerance, balance, and LE strength. Physical Therapy Plan Frequency and Duration Frequency of Treatment 2x/Week Plan of Care Start Date 09/26/22 Plan of Care End Date 12/25/22 Therapeutic Interventions Therapeutic Interventions Balance Training,Coordination Training,Gait Training,Home Exercise Program,Joint Mobilizations,Manual Therapy, Neuromuscular Re-education, Patient/Caregiver Education, Self-Care/Home Management,Soft Tissue Mobilization, Therapeutic Activities, Therapeutic Exercises Next Visit Focus/Plan Next Note Type Treatment Note Next Visit Plan LE strengthening, gait and balance training, improving activity tolerance
--- NOTE | 2022-11-12 17:43 | PT.OTN ---
Current Diagnoses Multiple sclerosis (11/12/22) Muscle weakness (generalized) (11/12/22) Other abnormalities of gait and mobility (11/12/22) Repeated falls (11/12/22) Other symptoms and signs involving the musculoskeletal system (11/12/22) Physical Therapy Treatment Note PT-OP-A Visit Information Start: 09/26/22 12:12 Freq: Status: Active Protocol: Document 11/12/22 13:31 NBM (Rec: 11/12/22 14:16 [facility] [place] [id number]) Out-Patient Physical Therapy Visit Information Visit Information Visit Type Treatment Note Visit Note 08/17 after Prog note Visit Start Time 13:30 Visit Stop Time 05:00 Total Visit Minutes 45 Visit Number 13 Number of HARNESS WORKER Visits 1 PT-OP-B Current Condition Start: 09/26/22 12:12 Freq: Status: Active Protocol: Document 09/26/22 10:30 DCW (Rec: 09/26/22 12:40 DCW [id number]) Current Condition History of Current Condition Onset Date Multi-year history Current Complaints Weakness, falls, gait difficulties, imbalance secondary to MS History of Current Condition Pt is a 72 year old female with a long-standing history of MS who has been treated at this clinic multiple times overthe years, returning today for a new evaluation. Pt reports her symptoms have been worsening, she feels her right leg has been weaker recently, making it difficult to lift it up into her car or into bed without assisting it with her arms. Notes that she hasn't been falling much ( admits to ~1x/month). Has been doing yoga 2x/week as well as prior HEP from PT 2x/week. Pt 's biggest complaint is that she is unable to walk fast enough to keep up with her boyfriend when out for a walk. Notes she usually hangs on to him when they are out walking , but otherwise uses her SPC. Does wear a R AFO secondary to foot drop. Treatment Goals Patient/Caregiver Goals I need to learn how to walk better and faster without tripping over myself. PT-OP-C Subjective Start: 09/26/22 12:12 Freq: Status: Active Protocol: Document 11/12/22 13:31 NBM (Rec: 11/12/22 14:16 NB [id number]) OP-PT Subjective Patient Comments Patient Comments Pt reports she is feeling well and stopped home to eat prior . She came from a chriopractic adjustment which she had AFO removed for and other shoes, but dons AFO and shoes for PT. She starts weekly infusions in one week for four weeks. I know my higher power has my back and I'm just along for the ride. PT-OP-D Balance Start: 09/26/22 12:12 Freq: Status: Active Protocol: Document 09/26/22 10:30 DCW (Rec: 09/26/22 12:18 DCW [id number]) OP-PT Balance Assessment Sitting Balance Static Sitting Balance Ability Normal Dynamic Sitting Balance Ability Normal Standing Balance Static Standing Balance Ability Fair Dynamic Standing Balance Ability Fair Device Used [facility] Posada Fall Scale Copyright Permission PT-OP-E Functional Tests Start: 09/26/22 12:12 Freq: Status: Active Protocol: Document 09/26/22 10:30 DCW (Rec: 09/26/22 12:18 DCW [id number]) Functional Tests 2 Minute Walk Test Distance 180' Device Used SPC Comments 1.5 ft/sec Dynamic Gait Index (DGI) Score 12/24 DGI Impairment Rating 40 to <60% Impaired (Score 10- 14) Timed Up and Go (TUG) Score 13.74 /c SPC Comments Three-trial average (15.80, 12 .74, 12.68) TUG Impairment Rating 40 to <60% Impaired (Score 14- 15) PT-OP-G Mobility & Gait Start: 09/26/22 12:12 Freq: Status: Active Protocol: Document 09/26/22 10:30 DCW (Rec: 09/26/22 12:31 DCW [id number]) OP Gait Assessment Gait Gait Assistance Required: Standby Assistance Distance (Feet) 180 Assistive Devices Assistive Device Gait Belt,Straight Cane Gait Deviations General Gait Pattern Ataxic,Decreased Stride Length ,Decreased Feet Clearance, Flexed Trunk,Narrow Based Gait Factors Limiting Gait Function Factors Limiting Gait Function Decreased Activity Tolerance, Decreased Strength, Incoordination,Poor Balance Stair Climbing Evaluation Evaluation Level of Assist On Stairs Standby Assistance Devices Stair Climbing Assistive Devices Right Railing Technique/Endurance Stair Climbing Direction Ascend and Descend Stair Climbing Technique Step Over Step Number of Steps Climbed 4 PT-OP-M Strength Start: 09/26/22 12:12 Freq: Status: Active Protocol: Document 09/26/22 10:30 DCW (Rec: 09/26/22 12:31 DCW [id number]) Hip Strength Hip Manual Muscle Testing Right Flexion (L2) 3 Fair Extension (S1) 4- Good- Abduction 3+ Fair+ Adduction 4- Good- External Rotation 3+ Fair+ Internal Rotation 4- Good- Left Flexion (L2) 4+ Good+ Extension (S1) 5 Normal Abduction 4+ Good+ Adduction 4+ Good+ External Rotation 4 Good Internal Rotation 4- Good- Knee Strength Knee Manual Muscle Testing Right Flexion (S2) 3+ Fair+ Extension (L3) 4 Good Left Flexion (S2) 4 Good Extension (L3) 4+ Good+ Ankle/Foot Strength Ankle and Foot Manual Muscle Testing Right Dorsiflexion (L4) 3- Fair- Left Dorsiflexion (L4) 4+ Good+ PT-OP-Q Treatments Start: 09/26/22 12:12 Freq: Status: Active Protocol: Document 11/12/22 13:31 NBM (Rec: 11/12/22 14:16 NBM [id number]) Cardio Equipment Recumbent Elliptical (Biodex) Duration (Minutes) 8 Resistance 5 Seat Position 7 Other LEs only - challenging about ~ 3min Gym Equipment Shuttle Balance balance with perturbations Details chains red Comments NBOS EO 1 Details Red - Wide ARMANDO Comments EO/EC: Wide ARMANDO, NBOS, Staggered Stance [employer]aco Sport Cord Green Exercise Details black/white cord Cord/Resistance green Comments fwd/bwd w/ mirror w/ SPC LUE ( cues for foot placement hip width) lateral bilaterally w/ SPC 3x6 steps ea (cues for smaller step), CGA>Alex for one LOB to R w/ scissoring L over R. lateral w/o SPC B 1x6 steps ea Therapeutic Exercises Sidelying Exercises Clamshell Sidelying Exercise Name Clamshell Side right Reps/Minutes x15 Hip Abduction Sidelying Exercise Name Abduction Side right Reps/Minutes x15 ea Comments good form Sitting Exercises hip adduction Sitting Exercise Name ball squeeze Side bilateral Equipment Used yellow ball Reps/Minutes 5SH x 10 Comments vc no breathholding LAQ Side bilateral Equipment Used mesh chair Reps/Minutes x15 ea Comments vc for knee ext w/ hip flex PT-OP-T Assessment and Plan Start: 09/26/22 12:12 Freq: Status: Active Protocol: Document 11/12/22 13:31 [facility] [place] (Rec: 11/12/22 14:16 [facility] [place] [id number]) Physical Therapy Assessment Impairments Impairments Activity Tolerance,Balance, Coordination,Functional Activities,Functional Mobility ,Gait,Soft Tissue Mobility, Strength,Tone Goals Three Impairment Pt experiencing increased weakness of right hip flexion (3/5) Impairment Loss of balance without fall 2x/day in home. Halfway Goal (LTG) Pt to increase MMT score of right hip flexion to at least 4-/5 in order to improve ability to lift right leg into her car without use of her UEs. LTG Duration 12/25/22 Two Impairment Pt scores as a falls risk, per DGI (06/30) Impairment Hip: Flexion 5/5 L, 4+/5 R; ER 3-/5 R, 2/5 L; IR 4+/5 bilaterally. Knee: Flex: 4/5 bilaterally; Ext: 3+/5 R, 5/5 L Ankle: Left: generally 5/5; Right: DF 2+/5, PF 3+/5, IV 3/ 5, EV 2/5. Box Gluer Goal (LTG) Pt to improve DGI score by at least 5 points to to show a decrease in falls risk. LTG Duration 12/25 One Impairment Pt does not have an appropriate home exercise program Impairment Pt goals received 05/30/21: Strengthen legs (R) & upper body; Hips feel like in alignment after sitting (R hip feels like it is forward). Short Term Goal (STG) Pt to be independent and compliant with an appropriate HEP STG Duration 11/26/22 Assessment Summary Assessment Elise requires cues for increased step width with fwd/ bwd sports cord and visual feedback- self-awareness improves with repetition. She tolerates perturbations with narrow base of support on shuttle balance with appropriate ankle/hip strategies and no loss of balance, but is most challenged w/ eyes closed in staggered stance LLE back. She again had one LOB to R w/ scissoring L over R with lateral stepping with green sports cord requiring Alex for recovery. She demonstrates good energy pacing today with rest breaks as needed. Physical Therapy Plan Frequency and Duration Frequency of Treatment 2x/Week Plan of Care Start Date 09/26/22 Plan of Care End Date 12/25/22 Therapeutic Interventions Therapeutic Interventions Balance Training,Coordination Training,Gait Training,Home Exercise Program,Joint Mobilizations,Manual Therapy, Neuromuscular Re-education, Patient/Caregiver Education, Self-Care/Home Management,Soft Tissue Mobilization, Therapeutic Activities, Therapeutic Exercises Next Visit Focus/Plan Next Note Type Treatment Note Next Visit Plan LE strengthening, gait and balance training, improving activity tolerance
--- NOTE | 2022-11-14 10:17 | PT.OTN ---
Current Diagnoses Multiple sclerosis (11/14/22) Muscle weakness (generalized) (11/14/22) Other abnormalities of gait and mobility (11/14/22) Repeated falls (11/14/22) Other symptoms and signs involving the musculoskeletal system (11/14/22) Physical Therapy Treatment Note PT-OP-A Visit Information Start: 09/26/22 12:12 Freq: Status: Active Protocol: Document 11/14/22 09:30 DCW (Rec: 11/14/22 10:17 DCW [id number]) Out-Patient Physical Therapy Visit Information Visit Information Visit Type Treatment Note Visit Note 07/17 after Prog note Visit Start Time 09:30 Visit Stop Time 10:15 Total Visit Minutes 45 Visit Number 14 Number of MERCHANDISE BUYER Visits 0 Evaluation Information Evaluation Date 09/26/22 PT-OP-B Current Condition Start: 09/26/22 12:12 Freq: Status: Active Protocol: Document 09/26/22 10:30 DCW (Rec: 09/26/22 12:40 DCW [id number]) Current Condition History of Current Condition Onset Date Multi-year history Current Complaints Weakness, falls, gait difficulties, imbalance secondary to MS History of Current Condition Pt is a 72 year old female with a long-standing history of MS who has been treated at this clinic multiple times overthe years, returning today for a new evaluation. Pt reports her symptoms have been worsening, she feels her right leg has been weaker recently, making it difficult to lift it up into her car or into bed without assisting it with her arms. Notes that she hasn't been falling much ( admits to ~1x/month). Has been doing yoga 2x/week as well as prior HEP from PT 2x/week. Pt 's biggest complaint is that she is unable to walk fast enough to keep up with her boyfriend when out for a walk. Notes she usually hangs on to him when they are out walking , but otherwise uses her SPC. Does wear a R AFO secondary to foot drop. Treatment Goals Patient/Caregiver Goals I need to learn how to walk better and faster without tripping over myself. PT-OP-C Subjective Start: 09/26/22 12:12 Freq: Status: Active Protocol: Document 11/14/22 09:30 DCW (Rec: 11/14/22 10:17 DCW [id number]) OP-PT Subjective Patient Comments Patient Comments My exercises are going well. I have my PET scan on Saturday, and I have my first infusion on Saturday, so I just kind of feel like I'm along for the ride. PT-OP-D Balance Start: 09/26/22 12:12 Freq: Status: Active Protocol: Document 09/26/22 10:30 DCW (Rec: 09/26/22 12:18 DCW [id number]) OP-PT Balance Assessment Sitting Balance Static Sitting Balance Ability Normal Dynamic Sitting Balance Ability Normal Standing Balance Static Standing Balance Ability Fair Dynamic Standing Balance Ability Fair Device Used [facility] Posada Fall Scale Copyright Permission PT-OP-E Functional Tests Start: 09/26/22 12:12 Freq: Status: Active Protocol: Document 09/26/22 10:30 DCW (Rec: 09/26/22 12:18 DCW [id number]) Functional Tests 2 Minute Walk Test Distance 180' Device Used SPC Comments 1.5 ft/sec Dynamic Gait Index (DGI) Score 12/24 DGI Impairment Rating 40 to <60% Impaired (Score 10- 14) Timed Up and Go (TUG) Score 13.74 /c SPC Comments Three-trial average (15.80, 12 .74, 12.68) TUG Impairment Rating 40 to <60% Impaired (Score 14- 15) PT-OP-G Mobility & Gait Start: 09/26/22 12:12 Freq: Status: Active Protocol: Document 09/26/22 10:30 DCW (Rec: 09/26/22 12:31 DCW [id number]) OP Gait Assessment Gait Gait Assistance Required: Standby Assistance Distance (Feet) 180 Assistive Devices Assistive Device Gait Belt,Straight Cane Gait Deviations General Gait Pattern Ataxic,Decreased Stride Length ,Decreased Feet Clearance, Flexed Trunk,Narrow Based Gait Factors Limiting Gait Function Factors Limiting Gait Function Decreased Activity Tolerance, Decreased Strength, Incoordination,Poor Balance Stair Climbing Evaluation Evaluation Level of Assist On Stairs Standby Assistance Devices Stair Climbing Assistive Devices Right Railing Technique/Endurance Stair Climbing Direction Ascend and Descend Stair Climbing Technique Step Over Step Number of Steps Climbed 4 PT-OP-M Strength Start: 09/26/22 12:12 Freq: Status: Active Protocol: Document 09/26/22 10:30 DCW (Rec: 09/26/22 12:31 DCW [id number]) Hip Strength Hip Manual Muscle Testing Right Flexion (L2) 3 Fair Extension (S1) 4- Good- Abduction 3+ Fair+ Adduction 4- Good- External Rotation 3+ Fair+ Internal Rotation 4- Good- Left Flexion (L2) 4+ Good+ Extension (S1) 5 Normal Abduction 4+ Good+ Adduction 4+ Good+ External Rotation 4 Good Internal Rotation 4- Good- Knee Strength Knee Manual Muscle Testing Right Flexion (S2) 3+ Fair+ Extension (L3) 4 Good Left Flexion (S2) 4 Good Extension (L3) 4+ Good+ Ankle/Foot Strength Ankle and Foot Manual Muscle Testing Right Dorsiflexion (L4) 3- Fair- Left Dorsiflexion (L4) 4+ Good+ PT-OP-Q Treatments Start: 09/26/22 12:12 Freq: Status: Active Protocol: Document 11/14/22 09:30 DCW (Rec: 11/14/22 10:17 PAW [id number]) Cardio Equipment Recumbent Elliptical ([employer]) Duration (Minutes) 7 Resistance 5 Seat Position 6 Other LEs only Gym Equipment Shuttle Balance 1 Details Red - Wide ARMANDO Comments Wide ARMANDO (EO/EC, perturbations ), Staggered Stance Neuro Re-Education Treatment Balance Activities Tilt board Details Lateral weight shift BOSU Step-ups Details BOSU Step-ups Surface Blue BOSU Hurdles Details Hurdles/foam Equipment gait belt, CGA>Alex, STABLE HELPER prn Reps/Duration 6 6 hurdles x 4 Comments Fwd, Lateral occ cues for R hip flex vs circumduction w/fwd. BOSU Lunge Details BOSU Lunge Surface Blue BOSU Equipment Gait belt Reps/Duration x10 ea Comments no AD, CGA>min A, vc glute squeeze ascending PT-OP-T Assessment and Plan Start: 09/26/22 12:12 Freq: Status: Active Protocol: Document 11/14/22 09:30 DCW (Rec: 11/14/22 10:17 PAW [id number]) Physical Therapy Assessment Impairments Impairments Activity Tolerance,Balance, Coordination,Functional Activities,Functional Mobility ,Gait,Soft Tissue Mobility, Strength,Tone Goals Three Impairment Pt experiencing increased weakness of right hip flexion (3/5) Impairment Loss of balance without fall 2x/day in home. [facility] Goal (LTG) Pt to increase MMT score of right hip flexion to at least 4-/5 in order to improve ability to lift right leg into her car without use of her UEs. LTG Duration 12/25/22 Two Impairment Pt scores as a falls risk, per DGI (06/30) Impairment Hip: Flexion 5/5 L, 4+/5 R; ER 3-/5 R, 2/5 L; IR 4+/5 bilaterally. Knee: Flex: 4/5 bilaterally; Ext: 3+/5 R, 5/5 L Ankle: Left: generally 5/5; Right: DF 2+/5, PF 3+/5, IV 3/ 5, EV 2/5. Burlap Worker Goal (LTG) Pt to improve DGI score by at least 5 points to to show a decrease in falls risk. LTG Duration 12/25 One Impairment Pt does not have an appropriate home exercise program Impairment Pt goals received 05/30/21: Strengthen legs (R) & upper body; Hips feel like in alignment after sitting (R hip feels like it is forward). Short Term Goal (STG) Pt to be independent and compliant with an appropriate HEP STG Duration 11/26/22 Assessment Summary Assessment Pt feels much more comfortable with AM appointments, I actually feel like things are improving, instead of just getting tired. Pt showing some good progress with LE strength, including performing step-ups on the BOSU. Physical Therapy Plan Frequency and Duration Frequency of Treatment 2x/Week Plan of Care Start Date 09/26/22 Plan of Care End Date 12/25/22 Therapeutic Interventions Therapeutic Interventions Balance Training,Coordination Training,Gait Training,Home Exercise Program,Joint Mobilizations,Manual Therapy, Neuromuscular Re-education, Patient/Caregiver Education, Self-Care/Home Management,Soft Tissue Mobilization, Therapeutic Activities, Therapeutic Exercises Next Visit Focus/Plan Next Note Type Treatment Note Next Visit Plan LE strengthening, gait and balance training, improving activity tolerance
--- NOTE | 2022-11-22 10:59 | PT.OTN ---
Current Diagnoses Multiple sclerosis (11/22/22) Muscle weakness (generalized) (11/22/22) Other abnormalities of gait and mobility (11/22/22) Repeated falls (11/22/22) Other symptoms and signs involving the musculoskeletal system (11/22/22) Physical Therapy Treatment Note PT-OP-A Visit Information Start: 09/26/22 12:12 Freq: Status: Active Protocol: Document 11/22/22 10:15 DCW (Rec: 11/22/22 10:59 DCW [id number]) Out-Patient Physical Therapy Visit Information Visit Information Visit Type Treatment Note Visit Note 10/15 after Prog note Visit Start Time 10:15 Visit Stop Time 11:00 Total Visit Minutes 45 Visit Number 15 Number of SPACER TYPE BAR AND SEGMENT Visits 0 Evaluation Information Evaluation Date 09/26/22 PT-OP-B Current Condition Start: 09/26/22 12:12 Freq: Status: Active Protocol: Document 09/26/22 10:30 DCW (Rec: 09/26/22 12:40 DCW [id number]) Current Condition History of Current Condition Onset Date Multi-year history Current Complaints Weakness, falls, gait difficulties, imbalance secondary to MS History of Current Condition Pt is a 72 year old female with a long-standing history of MS who has been treated at this clinic multiple times overthe years, returning today for a new evaluation. Pt reports her symptoms have been worsening, she feels her right leg has been weaker recently, making it difficult to lift it up into her car or into bed without assisting it with her arms. Notes that she hasn't been falling much ( admits to ~1x/month). Has been doing yoga 2x/week as well as prior HEP from PT 2x/week. Pt 's biggest complaint is that she is unable to walk fast enough to keep up with her boyfriend when out for a walk. Notes she usually hangs on to him when they are out walking , but otherwise uses her SPC. Does wear a R AFO secondary to foot drop. Treatment Goals Patient/Caregiver Goals I need to learn how to walk better and faster without tripping over myself. PT-OP-C Subjective Start: 09/26/22 12:12 Freq: Status: Active Protocol: Document 11/22/22 10:15 DCW (Rec: 11/22/22 10:59 DCW [id number]) OP-PT Subjective Patient Comments Patient Comments Pt had her first infusion Saturday, reports felt pretty awful for about 48 hours afterward, but I've felt better the last two days than I have in the past 4-6 months. PT-OP-D Balance Start: 09/26/22 12:12 Freq: Status: Active Protocol: Document 09/26/22 10:30 DCW (Rec: 09/26/22 12:18 DCW [id number]) OP-PT Balance Assessment Sitting Balance Static Sitting Balance Ability Normal Dynamic Sitting Balance Ability Normal Standing Balance Static Standing Balance Ability Fair Dynamic Standing Balance Ability Fair Device Used [facility] Posada Fall Scale Copyright Permission PT-OP-E Functional Tests Start: 09/26/22 12:12 Freq: Status: Active Protocol: Document 09/26/22 10:30 DCW (Rec: 09/26/22 12:18 DCW [id number]) Functional Tests 2 Minute Walk Test Distance 180' Device Used SPC Comments 1.5 ft/sec Dynamic Gait Index (DGI) Score 12/24 DGI Impairment Rating 40 to <60% Impaired (Score 10- 14) Timed Up and Go (TUG) Score 13.74 /c SPC Comments Three-trial average (15.80, 12 .74, 12.68) TUG Impairment Rating 40 to <60% Impaired (Score 14- 15) PT-OP-G Mobility & Gait Start: 09/26/22 12:12 Freq: Status: Active Protocol: Document 09/26/22 10:30 DCW (Rec: 09/26/22 12:31 DCW [id number]) OP Gait Assessment Gait Gait Assistance Required: Standby Assistance Distance (Feet) 180 Assistive Devices Assistive Device Gait Belt,Straight Cane Gait Deviations General Gait Pattern Ataxic,Decreased Stride Length ,Decreased Feet Clearance, Flexed Trunk,Narrow Based Gait Factors Limiting Gait Function Factors Limiting Gait Function Decreased Activity Tolerance, Decreased Strength, Incoordination,Poor Balance Stair Climbing Evaluation Evaluation Level of Assist On Stairs Standby Assistance Devices Stair Climbing Assistive Devices Right Railing Technique/Endurance Stair Climbing Direction Ascend and Descend Stair Climbing Technique Step Over Step Number of Steps Climbed 4 PT-OP-M Strength Start: 09/26/22 12:12 Freq: Status: Active Protocol: Document 09/26/22 10:30 DCW (Rec: 09/26/22 12:31 DCW [id number]) Hip Strength Hip Manual Muscle Testing Right Flexion (L2) 3 Fair Extension (S1) 4- Good- Abduction 3+ Fair+ Adduction 4- Good- External Rotation 3+ Fair+ Internal Rotation 4- Good- Left Flexion (L2) 4+ Good+ Extension (S1) 5 Normal Abduction 4+ Good+ Adduction 4+ Good+ External Rotation 4 Good Internal Rotation 4- Good- Knee Strength Knee Manual Muscle Testing Right Flexion (S2) 3+ Fair+ Extension (L3) 4 Good Left Flexion (S2) 4 Good Extension (L3) 4+ Good+ Ankle/Foot Strength Ankle and Foot Manual Muscle Testing Right Dorsiflexion (L4) 3- Fair- Left Dorsiflexion (L4) 4+ Good+ PT-OP-Q Treatments Start: 09/26/22 12:12 Freq: Status: Active Protocol: Document 11/22/22 10:15 DCW (Rec: 11/22/22 10:59 DCW [id number]) Cardio Equipment Recumbent Elliptical ([employer]) Duration (Minutes) 7 Resistance 5 Seat Position 7 Other LEs only Gym Equipment Shuttle Balance 1 Details Red - Wide ARMANDO Comments Wide ARMANDO (EO/EC, perturbations ), Staggered Stance Sport Cord Red Exercise Details 4-way resisted ambulation Cord/Resistance Black/white cord: Red Neuro Re-Education Treatment Balance Activities BOSU Step-ups Details BOSU Step-ups Surface Blue BOSU BOSU Lunge Details BOSU Lunge Surface Blue BOSU Equipment Gait belt Reps/Duration x10 ea Comments no AD, CGA>min A, vc glute squeeze ascending PT-OP-T Assessment and Plan Start: 09/26/22 12:12 Freq: Status: Active Protocol: Document 11/22/22 10:15 DCW (Rec: 11/22/22 10:59 DCW [id number]) Physical Therapy Assessment Impairments Impairments Activity Tolerance,Balance, Coordination,Functional Activities,Functional Mobility ,Gait,Soft Tissue Mobility, Strength,Tone Goals Three Impairment Pt experiencing increased weakness of right hip flexion (3/5) Impairment Loss of balance without fall 2x/day in home. Nursing Home Goal (LTG) Pt to increase MMT score of right hip flexion to at least 4-/5 in order to improve ability to lift right leg into her car without use of her UEs. LTG Duration 12/25/22 Two Impairment Pt scores as a falls risk, per DGI (06/30) Impairment Hip: Flexion 5/5 L, 4+/5 R; ER 3-/5 R, 2/5 L; IR 4+/5 bilaterally. Knee: Flex: 4/5 bilaterally; Ext: 3+/5 R, 5/5 L Ankle: Left: generally 5/5; Right: DF 2+/5, PF 3+/5, IV 3/ 5, EV 2/5. Nursing Home Goal (LTG) Pt to improve DGI score by at least 5 points to to show a decrease in falls risk. LTG Duration 12/25 One Impairment Pt does not have an appropriate home exercise program Impairment Pt goals received 05/30/21: Strengthen legs (R) & upper body; Hips feel like in alignment after sitting (R hip feels like it is forward). Short Term Goal (STG) Pt to be independent and compliant with an appropriate HEP STG Duration 11/26/22 Assessment Summary Assessment Noticeable challenge on Sport Cord with resistance pulling her to the right, required Min Ax1 to maintain balance, but pt did well in all other direction. Does appear to be more energetic following her infusion Saturday. Physical Therapy Plan Frequency and Duration Frequency of Treatment 2x/Week Plan of Care Start Date 09/26/22 Plan of Care End Date 12/25/22 Therapeutic Interventions Therapeutic Interventions Balance Training,Coordination Training,Gait Training,Home Exercise Program,Joint Mobilizations,Manual Therapy, Neuromuscular Re-education, Patient/Caregiver Education, Self-Care/Home Management,Soft Tissue Mobilization, Therapeutic Activities, Therapeutic Exercises Next Visit Focus/Plan Next Note Type Treatment Note Next Visit Plan LE strengthening, gait and balance training, improving activity tolerance
--- NOTE | 2022-11-29 10:13 | PT.OTN ---
Current Diagnoses Multiple sclerosis (11/29/22) Muscle weakness (generalized) (11/29/22) Other abnormalities of gait and mobility (11/29/22) Repeated falls (11/29/22) Other symptoms and signs involving the musculoskeletal system (11/29/22) Physical Therapy Treatment Note PT-OP-A Visit Information Start: 09/26/22 12:12 Freq: Status: Active Protocol: Document 11/29/22 09:30 DCW (Rec: 11/29/22 10:13 DCW [id number]) Out-Patient Physical Therapy Visit Information Visit Information Visit Type Treatment Note Visit Note 11/14 after Prog note Visit Start Time 09:30 Visit Stop Time 10:15 Total Visit Minutes 45 Visit Number 16 Number of LOSS PREVENTION GUARD Visits 0 Evaluation Information Evaluation Date 09/26/22 PT-OP-B Current Condition Start: 09/26/22 12:12 Freq: Status: Active Protocol: Document 09/26/22 10:30 DCW (Rec: 09/26/22 12:40 DCW [id number]) Current Condition History of Current Condition Onset Date Multi-year history Current Complaints Weakness, falls, gait difficulties, imbalance secondary to MS History of Current Condition Pt is a 72 year old female with a long-standing history of MS who has been treated at this clinic multiple times overthe years, returning today for a new evaluation. Pt reports her symptoms have been worsening, she feels her right leg has been weaker recently, making it difficult to lift it up into her car or into bed without assisting it with her arms. Notes that she hasn't been falling much ( admits to ~1x/month). Has been doing yoga 2x/week as well as prior HEP from PT 2x/week. Pt 's biggest complaint is that she is unable to walk fast enough to keep up with her boyfriend when out for a walk. Notes she usually hangs on to him when they are out walking , but otherwise uses her SPC. Does wear a R AFO secondary to foot drop. Treatment Goals Patient/Caregiver Goals I need to learn how to walk better and faster without tripping over myself. PT-OP-C Subjective Start: 09/26/22 12:12 Freq: Status: Active Protocol: Document 11/29/22 09:30 DCW (Rec: 11/29/22 10:13 DCW [id number]) OP-PT Subjective Patient Comments Patient Comments I'm feeling really well. Two treatments down and two to go. PT-OP-D Balance Start: 09/26/22 12:12 Freq: Status: Active Protocol: Document 09/26/22 10:30 DCW (Rec: 09/26/22 12:18 DCW [id number]) OP-PT Balance Assessment Sitting Balance Static Sitting Balance Ability Normal Dynamic Sitting Balance Ability Normal Standing Balance Static Standing Balance Ability Fair Dynamic Standing Balance Ability Fair Device Used [facility] Posada Fall Scale Copyright Permission PT-OP-E Functional Tests Start: 09/26/22 12:12 Freq: Status: Active Protocol: Document 09/26/22 10:30 DCW (Rec: 09/26/22 12:18 DCW [id number]) Functional Tests 2 Minute Walk Test Distance 180' Device Used SPC Comments 1.5 ft/sec Dynamic Gait Index (DGI) Score 12/24 DGI Impairment Rating 40 to <60% Impaired (Score 10- 14) Timed Up and Go (TUG) Score 13.74 /c SPC Comments Three-trial average (15.80, 12 .74, 12.68) TUG Impairment Rating 40 to <60% Impaired (Score 14- 15) PT-OP-G Mobility & Gait Start: 09/26/22 12:12 Freq: Status: Active Protocol: Document 09/26/22 10:30 DCW (Rec: 09/26/22 12:31 DCW [id number]) OP Gait Assessment Gait Gait Assistance Required: Standby Assistance Distance (Feet) 180 Assistive Devices Assistive Device Gait Belt,Straight Cane Gait Deviations General Gait Pattern Ataxic,Decreased Stride Length ,Decreased Feet Clearance, Flexed Trunk,Narrow Based Gait Factors Limiting Gait Function Factors Limiting Gait Function Decreased Activity Tolerance, Decreased Strength, Incoordination,Poor Balance Stair Climbing Evaluation Evaluation Level of Assist On Stairs Standby Assistance Devices Stair Climbing Assistive Devices Right Railing Technique/Endurance Stair Climbing Direction Ascend and Descend Stair Climbing Technique Step Over Step Number of Steps Climbed 4 PT-OP-M Strength Start: 09/26/22 12:12 Freq: Status: Active Protocol: Document 09/26/22 10:30 DCW (Rec: 09/26/22 12:31 DCW [id number]) Hip Strength Hip Manual Muscle Testing Right Flexion (L2) 3 Fair Extension (S1) 4- Good- Abduction 3+ Fair+ Adduction 4- Good- External Rotation 3+ Fair+ Internal Rotation 4- Good- Left Flexion (L2) 4+ Good+ Extension (S1) 5 Normal Abduction 4+ Good+ Adduction 4+ Good+ External Rotation 4 Good Internal Rotation 4- Good- Knee Strength Knee Manual Muscle Testing Right Flexion (S2) 3+ Fair+ Extension (L3) 4 Good Left Flexion (S2) 4 Good Extension (L3) 4+ Good+ Ankle/Foot Strength Ankle and Foot Manual Muscle Testing Right Dorsiflexion (L4) 3- Fair- Left Dorsiflexion (L4) 4+ Good+ PT-OP-Q Treatments Start: 09/26/22 12:12 Freq: Status: Active Protocol: Document 11/29/22 09:30 DCW (Rec: 11/29/22 10:13 DCW [id number]) Cardio Equipment Recumbent Elliptical (Bi[employer]x) Duration (Minutes) 7 Resistance 5 Seat Position 8 Other LEs only Gym Equipment Shuttle Balance 1 Details Red - Wide ARMANDO Comments Wide ARMANDO (EO/EC), Staggered Stance Sport Cord Red Exercise Details 4-way resisted ambulation Cord/Resistance Black/white cord: Red Neuro Re-Education Treatment Balance Activities BOSU Lunge Details BOSU Lunge Surface Blue BOSU Equipment Gait belt Reps/Duration x10 ea Comments no AD, CGA>min A, vc glute squeeze ascending PT-OP-T Assessment and Plan Start: 09/26/22 12:12 Freq: Status: Active Protocol: Document 11/29/22 09:30 DCW (Rec: 11/29/22 10:13 DCW [id number]) Physical Therapy Assessment Impairments Impairments Activity Tolerance,Balance, Coordination,Functional Activities,Functional Mobility ,Gait,Soft Tissue Mobility, Strength,Tone Goals Three Impairment Pt experiencing increased weakness of right hip flexion (3/5) Impairment Loss of balance without fall 2x/day in home. Intermediate Goal (LTG) Pt to increase MMT score of right hip flexion to at least 4-/5 in order to improve ability to lift right leg into her car without use of her UEs. LTG Duration 12/25/22 Two Impairment Pt scores as a falls risk, per DGI (06/30) Impairment Hip: Flexion 5/5 L, 4+/5 R; ER 3-/5 R, 2/5 L; IR 4+/5 bilaterally. Knee: Flex: 4/5 bilaterally; Ext: 3+/5 R, 5/5 L Ankle: Left: generally 5/5; Right: DF 2+/5, PF 3+/5, IV 3/ 5, EV 2/5. Senior Firewall Engineer Goal (LTG) Pt to improve DGI score by at least 5 points to 17/24 to show a decrease in falls risk. LTG Duration 12/25 One Impairment Pt does not have an appropriate home exercise program Impairment Pt goals received 05/30/21: Strengthen legs (R) & upper body; Hips feel like in alignment after sitting (R hip feels like it is forward). Short Term Goal (STG) Pt to be independent and compliant with an appropriate HEP STG Duration 11/26/22 Assessment Summary Assessment Pt has been feeling much better during her recent cancer treatments, reports she has a busy summer and will likely decide to discharge following last two scheduled visits. Overall showing good progress from initial evaluation. Physical Therapy Plan Frequency and Duration Frequency of Treatment 2x/Week Plan of Care Start Date 09/26/22 Plan of Care End Date 12/25/22 Therapeutic Interventions Therapeutic Interventions Balance Training,Coordination Training,Gait Training,Home Exercise Program,Joint Mobilizations,Manual Therapy, Neuromuscular Re-education, Patient/Caregiver Education, Self-Care/Home Management,Soft Tissue Mobilization, Therapeutic Activities, Therapeutic Exercises Next Visit Focus/Plan Next Note Type Treatment Note Next Visit Plan LE strengthening, gait and balance training, improving activity tolerance
--- NOTE | 2022-12-12 12:45 | PT.OTN ---
Current Diagnoses Multiple sclerosis (12/12/22) Muscle weakness (generalized) (12/12/22) Other abnormalities of gait and mobility (12/12/22) Repeated falls (12/12/22) Other symptoms and signs involving the musculoskeletal system (12/12/22) Physical Therapy Treatment Note PT-OP-A Visit Information Start: 09/26/22 12:12 Freq: Status: Active Protocol: Document 12/12/22 12:01 SP (Rec: 12/12/22 12:51 SP [id number]) Out-Patient Physical Therapy Visit Information Visit Information Visit Type Treatment Note Visit Note 12/15 after Prog note Visit Start Time 12:01 Visit Stop Time 12:45 Total Visit Minutes 44 Visit Number 17 Number of GROUNDSKEEPER SUPERVISOR Visits 1 Evaluation Information Evaluation Date 09/26/22 PT-OP-B Current Condition Start: 09/26/22 12:12 Freq: Status: Active Protocol: Document 09/26/22 10:30 DCW (Rec: 09/26/22 12:40 DCW [id number]) Current Condition History of Current Condition Onset Date Multi-year history Current Complaints Weakness, falls, gait difficulties, imbalance secondary to MS History of Current Condition Pt is a 72 year old female with a long-standing history of MS who has been treated at this clinic multiple times overthe years, returning today for a new evaluation. Pt reports her symptoms have been worsening, she feels her right leg has been weaker recently, making it difficult to lift it up into her car or into bed without assisting it with her arms. Notes that she hasn't been falling much ( admits to ~1x/month). Has been doing yoga 2x/week as well as prior HEP from PT 2x/week. Pt 's biggest complaint is that she is unable to walk fast enough to keep up with her boyfriend when out for a walk. Notes she usually hangs on to him when they are out walking , but otherwise uses her SPC. Does wear a R AFO secondary to foot drop. Treatment Goals Patient/Caregiver Goals I need to learn how to walk better and faster without tripping over myself. PT-OP-C Subjective Start: 09/26/22 12:12 Freq: Status: Active Protocol: Document 12/12/22 12:01 SP (Rec: 12/12/22 12:51 SP [id number]) OP-PT Subjective Patient Comments Patient Comments Pt reports was doing HS stretch and felt discomfort across back so not feeling as good as usually. PT-OP-D Balance Start: 09/26/22 12:12 Freq: Status: Active Protocol: Document 09/26/22 10:30 DCW (Rec: 09/26/22 12:18 DCW [id number]) OP-PT Balance Assessment Sitting Balance Static Sitting Balance Ability Normal Dynamic Sitting Balance Ability Normal Standing Balance Static Standing Balance Ability Fair Dynamic Standing Balance Ability Fair Device Used [facility] Posada Fall Scale Copyright Permission PT-OP-E Functional Tests Start: 09/26/22 12:12 Freq: Status: Active Protocol: Document 09/26/22 10:30 DCW (Rec: 09/26/22 12:18 DCW [id number]) Functional Tests 2 Minute Walk Test Distance 180' Device Used SPC Comments 1.5 ft/sec Dynamic Gait Index (DGI) Score 12/24 DGI Impairment Rating 40 to <60% Impaired (Score 10- 14) Timed Up and Go (TUG) Score 13.74 /c SPC Comments Three-trial average (15.80, 12 .74, 12.68) TUG Impairment Rating 40 to <60% Impaired (Score 14- 15) PT-OP-G Mobility & Gait Start: 09/26/22 12:12 Freq: Status: Active Protocol: Document 09/26/22 10:30 DCW (Rec: 09/26/22 12:31 DCW [id number]) OP Gait Assessment Gait Gait Assistance Required: Standby Assistance Distance (Feet) 180 Assistive Devices Assistive Device Gait Belt,Straight Cane Gait Deviations General Gait Pattern Ataxic,Decreased Stride Length ,Decreased Feet Clearance, Flexed Trunk,Narrow Based Gait Factors Limiting Gait Function Factors Limiting Gait Function Decreased Activity Tolerance, Decreased Strength, Incoordination,Poor Balance Stair Climbing Evaluation Evaluation Level of Assist On Stairs Standby Assistance Devices Stair Climbing Assistive Devices Right Railing Technique/Endurance Stair Climbing Direction Ascend and Descend Stair Climbing Technique Step Over Step Number of Steps Climbed 4 PT-OP-M Strength Start: 09/26/22 12:12 Freq: Status: Active Protocol: Document 09/26/22 10:30 DCW (Rec: 09/26/22 12:31 DCW [id number]) Hip Strength Hip Manual Muscle Testing Right Flexion (L2) 3 Fair Extension (S1) 4- Good- Abduction 3+ Fair+ Adduction 4- Good- External Rotation 3+ Fair+ Internal Rotation 4- Good- Left Flexion (L2) 4+ Good+ Extension (S1) 5 Normal Abduction 4+ Good+ Adduction 4+ Good+ External Rotation 4 Good Internal Rotation 4- Good- Knee Strength Knee Manual Muscle Testing Right Flexion (S2) 3+ Fair+ Extension (L3) 4 Good Left Flexion (S2) 4 Good Extension (L3) 4+ Good+ Ankle/Foot Strength Ankle and Foot Manual Muscle Testing Right Dorsiflexion (L4) 3- Fair- Left Dorsiflexion (L4) 4+ Good+ PT-OP-Q Treatments Start: 09/26/22 12:12 Freq: Status: Active Protocol: Document 12/12/22 12:01 SP (Rec: 12/12/22 12:51 SP [id number]) Therapeutic Exercises Supine Exercises piriformis stretch Supine Exercise Name added to HEP Side bilateral Resistance R>L tight Reps/Minutes 30 x2 Comments cued cradle knee toward opp shld Sidelying Exercises Clamshell Sidelying Exercise Name Clamshell- HEP reviewed Side bilateral Resistance AROM x15, added Tb #1 peach Reps/Minutes x15 Comments cued no higher than opp hip needed- good muscle tire painfree Hip Abduction Sidelying Exercise Name Abduction- HEp reviewed Side bilateral Resistance AROM review RLE HEP, suggested Reps/Minutes x15 ea Comments good form, occasional cue for stacked alignment doing L. Sitting Exercises seated marching Sitting Exercise Name resisted Side bilateral Resistance 1. purple Tb at knees, 2.Blue TB at feet Equipment Used mesh chair Reps/Minutes x8 ea Comments visual target for R knee max height- core hip abduction Sitting Exercise Name seated clamshells Side bilateral Resistance purple TB Reps/Minutes x15 Comments vc for foot placement Standing Exercises Hamstring Curls Standing Exercise Name HS curl- HEP reviewed Side bilateral Resistance AROM (HEP) Equipment Used contact table Reps/Minutes x15 Comments cued elongated posture Manual Therapy Treatment Soft Tissue Mobilization glut B Body Location B glut, piriformis Mobilization Type Strumming Comments good response, ed self ball on wall- good demonstration response. Self-Care/Home Management Treatment Education Patient Education Home Exercise Program,Pain Management Other Education Ed use MHP for sore muscles gluteal area 5 min. Added piriformis stretch seated, supine and ball wall self STMs gluteal region with good response. PT-OP-T Assessment and Plan Start: 09/26/22 12:12 Freq: Status: Active Protocol: Document 12/12/22 12:01 SP (Rec: 12/12/22 12:51 SP [id number]) Physical Therapy Assessment Goals Three Impairment Pt experiencing increased weakness of right hip flexion (3/5) Impairment Loss of balance without fall 2x/day in home. Diesel Engine Tester Goal (LTG) Pt to increase MMT score of right hip flexion to at least 4-/5 in order to improve ability to lift right leg into her car without use of her UEs. LTG Duration 12/25/22 Two Impairment Pt scores as a falls risk, per DGI (06/30) Impairment Hip: Flexion 5/5 L, 4+/5 R; ER 3-/5 R, 2/5 L; IR 4+/5 bilaterally. Knee: Flex: 4/5 bilaterally; Ext: 3+/5 R, 5/5 L Ankle: Left: generally 5/5; Right: DF 2+/5, PF 3+/5, IV 3/ 5, EV 2/5. Diesel Engine Tester Goal (LTG) Pt to improve DGI score by at least 5 points to to show a decrease in falls risk. LTG Duration 12/25 One Impairment Pt does not have an appropriate home exercise program Impairment Pt goals received 05/30/21: Strengthen legs (R) & upper body; Hips feel like in alignment after sitting (R hip feels like it is forward). Short Term Goal (STG) Pt to be independent and compliant with an appropriate HEP 12/12/22: HEP reviewed: clamshell & hip abd, seated resisted abd and marching ( resisted today at feet), standing HS curls. Discussed how can use added TB resistance for progression. STG Duration 11/26/22 progressing/ updated Assessment Summary Assessment Pt good feedback response to manual and how self apply home ball wall, added stretching and HEP review with suggestions how progress strength with theraband resistance. Pt reports R gluteal region feels alot better and will use MHP at home. Physical Therapy Plan Frequency and Duration Frequency of Treatment 2x/Week Plan of Care Start Date 09/26/22 Plan of Care End Date 12/25/22 Therapeutic Interventions Therapeutic Interventions Balance Training,Coordination Training,Gait Training,Home Exercise Program,Joint Mobilizations,Manual Therapy, Neuromuscular Re-education, Patient/Caregiver Education, Self-Care/Home Management,Soft Tissue Mobilization, Therapeutic Activities, Therapeutic Exercises Next Visit Focus/Plan Next Note Type Treatment Note Next Visit Plan Next tx: DGI, MMT update goals , last tx and PT will DC. POC: LE strengthening, gait and balance training, improving activity tolerance
--- NOTE | 2022-12-14 10:31 | PT.OPDS ---
Current Diagnoses Multiple sclerosis (12/12/22) Muscle weakness (generalized) (12/12/22) Other abnormalities of gait and mobility (12/12/22) Repeated falls (12/12/22) Other symptoms and signs involving the musculoskeletal system (12/12/22) Visit Care Team Role Provider Type Erik Hernandez MD Family Provider Physician Specialty: Internal Medicine Address: [address] [place] [address], [facility] Email: [email or web address] Kaleb Oakley DO Attending Provider Physician Primary Care Provider Referring Provider Specialty: Family Practice Address: [address] [place] [address], [facility] Email: Visit Number Visit Number 17 Discharge Summary PT-OP-B Current Condition Start: 09/26/22 12:12 Freq: Status: Active Protocol: Document 09/26/22 10:30 DCW (Rec: 09/26/22 12:40 DCW [id number]) Current Condition History of Current Condition Onset Date Multi-year history Current Complaints Weakness, falls, gait difficulties, imbalance secondary to MS History of Current Condition Pt is a 72 year old female with a long-standing history of MS who has been treated at this clinic multiple times overthe years, returning today for a new evaluation. Pt reports her symptoms have been worsening, she feels her right leg has been weaker recently, making it difficult to lift it up into her car or into bed without assisting it with her arms. Notes that she hasn't been falling much ( admits to ~1x/month). Has been doing yoga 2x/week as well as prior HEP from PT 2x/week. Pt 's biggest complaint is that she is unable to walk fast enough to keep up with her boyfriend when out for a walk. Notes she usually hangs on to him when they are out walking , but otherwise uses her SPC. Does wear a R AFO secondary to foot drop. Treatment Goals Patient/Caregiver Goals I need to learn how to walk better and faster without tripping over myself. PT-OP-C Subjective Start: 09/26/22 12:12 Freq: Status: Active Protocol: Document 12/12/22 12:01 SP (Rec: 12/12/22 12:51 SP [id number]) OP-PT Subjective Patient Comments Patient Comments Pt reports was doing HS stretch and felt discomfort across back so not feeling as good as usually. PT-OP-D Balance Start: 09/26/22 12:12 Freq: Status: Active Protocol: Document 09/26/22 10:30 DCW (Rec: 09/26/22 12:18 DCW [id number]) OP-PT Balance Assessment Sitting Balance Static Sitting Balance Ability Normal Dynamic Sitting Balance Ability Normal Standing Balance Static Standing Balance Ability Fair Dynamic Standing Balance Ability Fair Device Used [facility] Posada Fall Scale Copyright Permission PT-OP-E Functional Tests Start: 09/26/22 12:12 Freq: Status: Active Protocol: Document 09/26/22 10:30 DCW (Rec: 09/26/22 12:18 DCW [id number]) Functional Tests 2 Minute Walk Test Distance 180' Device Used SPC Comments 1.5 ft/sec Dynamic Gait Index (DGI) Score 12/24 DGI Impairment Rating 40 to <60% Impaired (Score 10- 14) Timed Up and Go (TUG) Score 13.74 /c SPC Comments Three-trial average (15.80, 12 .74, 12.68) TUG Impairment Rating 40 to <60% Impaired (Score 14- 15) PT-OP-G Mobility & Gait Start: 09/26/22 12:12 Freq: Status: Active Protocol: Document 09/26/22 10:30 DCW (Rec: 09/26/22 12:31 DCW [id number]) OP Gait Assessment Gait Gait Assistance Required: Standby Assistance Distance (Feet) 180 Assistive Devices Assistive Device Gait Belt,Straight Cane Gait Deviations General Gait Pattern Ataxic,Decreased Stride Length ,Decreased Feet Clearance, Flexed Trunk,Narrow Based Gait Factors Limiting Gait Function Factors Limiting Gait Function Decreased Activity Tolerance, Decreased Strength, Incoordination,Poor Balance Stair Climbing Evaluation Evaluation Level of Assist On Stairs Standby Assistance Devices Stair Climbing Assistive Devices Right Railing Technique/Endurance Stair Climbing Direction Ascend and Descend Stair Climbing Technique Step Over Step Number of Steps Climbed 4 PT-OP-M Strength Start: 09/26/22 12:12 Freq: Status: Active Protocol: Document 09/26/22 10:30 DCW (Rec: 09/26/22 12:31 DCW [id number]) Hip Strength Hip Manual Muscle Testing Right Flexion (L2) 3 Fair Extension (S1) 4- Good- Abduction 3+ Fair+ Adduction 4- Good- External Rotation 3+ Fair+ Internal Rotation 4- Good- Left Flexion (L2) 4+ Good+ Extension (S1) 5 Normal Abduction 4+ Good+ Adduction 4+ Good+ External Rotation 4 Good Internal Rotation 4- Good- Knee Strength Knee Manual Muscle Testing Right Flexion (S2) 3+ Fair+ Extension (L3) 4 Good Left Flexion (S2) 4 Good Extension (L3) 4+ Good+ Ankle/Foot Strength Ankle and Foot Manual Muscle Testing Right Dorsiflexion (L4) 3- Fair- Left Dorsiflexion (L4) 4+ Good+ PT-OP-T Assessment and Plan Start: 09/26/22 12:12 Freq: Status: Active Protocol: Document 12/14/22 10:28 DCW (Rec: 12/14/22 10:31 [facility] [id number]) Physical Therapy Assessment Impairments Impairments Activity Tolerance,Balance, Coordination,Functional Activities,Functional Mobility ,Gait,Soft Tissue Mobility, Strength,Tone Goals Three Impairment Pt experiencing increased weakness of right hip flexion (3/5) Impairment Loss of balance without fall 2x/day in home. Auto Servicer Goal (LTG) Pt to increase MMT score of right hip flexion to at least 4-/5 in order to improve ability to lift right leg into her car without use of her UEs. LTG Duration 12/25/22 Two Impairment Pt scores as a falls risk, per DGI (06/30) Impairment Hip: Flexion 5/5 L, 4+/5 R; ER 3-/5 R, 2/5 L; IR 4+/5 bilaterally. Knee: Flex: 4/5 bilaterally; Ext: 3+/5 R, 5/5 L Ankle: Left: generally 5/5; Right: DF 2+/5, PF 3+/5, IV 3/ 5, EV 2/5. Snf Goal (LTG) Pt to improve DGI score by at least 5 points to to show a decrease in falls risk. LTG Duration 12/25 One Impairment Pt does not have an appropriate home exercise program Impairment Pt goals received 05/30/21: Strengthen legs (R) & upper body; Hips feel like in alignment after sitting (R hip feels like it is forward). Short Term Goal (STG) Pt to be independent and compliant with an appropriate HEP 12/12/22: HEP reviewed: clamshell & hip abd, seated resisted abd and marching ( resisted today at feet), standing HS curls. Discussed how can use added TB resistance for progression. STG Duration 11/26/22 progressing/ updated Assessment Summary Assessment Pt phoned clinic, requested her last appointment be canceled, and requested discharge. Feels she is doing well at the moment. Physical Therapy Plan Frequency and Duration Frequency of Treatment 2x/Week Plan of Care Start Date 09/26/22 Plan of Care End Date 12/25/22 Discharge Physical Therapy Discharge Reasons Patient Request Next Visit Focus/Plan Next Note Type Discharge Summary
== END 2022-12-19 15:49 | disposition home or self-care (01) ==
LOC: PHYS 12:00
PROVIDERS: Family Provider Internal Medicine; PCP Family Medicine; Referring Provider Family Medicine; Visit Provider Family Medicine
DX: R29.898 Other symptoms and signs involving the musculoskeletal system (principal); R26.89 Other abnormalities of gait and mobility; G35 Multiple sclerosis; R29.6 Repeated falls; M62.81 Muscle weakness (generalized)
CPT/HCPCS: 97110; 97112; 97163; 97535

== ENCOUNTER → 2023-02-14 | Outpatient (CLI) | payer MEDICARE, OTHER, SELFPAY ==
--- NOTE | 2023-02-14 09:42 | DI.RAD.S_ITS ---
Bone Density Report Name: EFREN CRUZ Age: 72 Sex: Female Ethnicity: White Date of : 1950 Indication: postmenopausal; screening for osteoporosis; Referring Provider: PATIENCE MCGEE Study: Bone densitometry was performed. Exam Date: February 14, 2023 Accession number: [id number] Bone Density: Region BMD T-score Z-score Classification AP Spine(L1, L2, L3) 0.866 -1.4 1.0 Osteopenia Femoral Neck (Left) 0.542 -2.8 -0.7 Osteoporosis Total Hip (Left) 0.528 -3.4 -1.6 Osteoporosis Femoral Neck (Right) 0.527 -2.9 -0.8 Osteoporosis Total Hip (Right) 0.552 -3.2 -1.4 Osteoporosis Total Hip Mean 0.540 -3.3 -1.5 Osteoporosis World Health Organization criteria for BMD impression classify patients as: Normal (T-score at or above -1.0), Osteopenia (T-score between -1.0 and -2.5), or Osteoporosis (T-score at or below -2.5). 10-year Fracture Risk: FRAX not reported because: Some T-score for Spine Total or Hip Total or Femoral Neck at or below -2.5 Treated for osteoporosis Impression: The patient has osteoporosis, based on the Left Total Hip T-score. Discussion: It is important to ask patients whether they are taking their medications and to encourage continued and appropriate compliance with their osteoporosis therapies to reduce fracture risk. It is also important to review their risk factors and encourage appropriate calcium and vitamin D intakes, exercise, fall prevention and other lifestyle measures. Follow-Up: Consider a repeat BMD and Vertebral Fracture Assessment (VFA) exam in 2 years or sooner if medically necessary, to reassess this patient's status. Reported by: MADIE TAY M.D. on 02/18/2023 3:55:00 PM.
== END ==
LOC: RAD 09:42
PROVIDERS: Family Provider Internal Medicine; PCP Family Medicine; Referring Provider Family Medicine; Visit Provider Family Medicine
DX: Z13.820 Encounter for screening for osteoporosis (principal); M81.0 Age-related osteoporosis without current pathological fracture; M85.80 Other specified disorders of bone density and structure, unspecified site; Z78.0 Asymptomatic menopausal state; Z79.83 Long term (current) use of bisphosphonates; Z90.710 Acquired absence of both cervix and uterus
CPT/HCPCS: 77080

== ENCOUNTER → 2023-04-03 12:39 | Outpatient (CLI) | payer MEDICARE, OTHER, SELFPAY ==
[2023-04-03 14:56] LABS: Alanine Aminotransferase 23 IU/L (<35); Albumin 4.1 g/dL (3.5-5.0); Albumin Globulin Ratio 1.5 (1.0-2.8); Alkaline Phosphatase 60 U/L (38-126); Aspartate Aminotransferase 25 IU/L (14-36); BUN Creatinine Ratio 33.3 (6-22); Bilirubin Total 0.3 mg/dL (0.2-1.3); Blood Urea Nitrogen 21 mg/dL (7-17); Carbon Dioxide 33 mmol/L (22-32); Chloride 100 mmol/L (98-107); Estimated Glomerular Filt Rate > 60 mL/min (>60); Globulin 2.8 g/dL (1.7-4.1); Glucose 87 mg/dL (80-110); HEMOLYSIS < 15 (0-50); Magnesium 2.3 mg/dL (1.6-2.3); Phosphorous 4.2 mg/dL (2.8-4.1); Potassium 4.5 mmol/L (3.4-5.1); Sodium 137 mmol/L (137-145); Total Protein 6.9 g/dL (6.3-8.2)
[2023-04-03 16:49] LABS: Vitamin D 25 Hydroxy (D3) 72.2 ng/mL (30.0-100.0)
[2023-04-14 10:16] LABS: 1,25-Dihydroxy, Vitamin D-2 <10 pg/mL (.)
== END ==
PROVIDERS: Family Provider Internal Medicine; PCP Family Medicine; Referring Provider Registered Nurse Diabetes Educator; Visit Provider Registered Nurse Diabetes Educator
DX: M81.0 Age-related osteoporosis without current pathological fracture (principal)
CPT/HCPCS: 36415; 80053; 82306; 82652; 83735; 84100

== ENCOUNTER → 2023-05-27 17:06 | Outpatient (CLI) | payer MEDICARE, OTHER, SELFPAY ==
--- NOTE | 2023-05-27 17:13 | DI.RAD.S_ITS ---
PROCEDURE: XR LUMBAR SPINE 2-3V INDICATIONS: Age-related osteoporosis without current pathological fracture TECHNIQUE: 3 views of the lumbar spine were acquired. COMPARISON: None. FINDINGS: Bones: 5 [id number] vertebrae are present. Grade 1 anterolisthesis L4 on L5. Moderate disc height loss at L3-4, L4-5 and L5-S1. Facet arthrosis L3 through S1. No compression deformity. Soft tissues: Overlying bowel gas pattern is normal. No suspicious soft tissue calcifications. IMPRESSION: Lower lumbar predominant, moderate degenerative disc disease and facet arthrosis. Dictated by: Andrew Guy M.D. on 05/28/2023 at 9:30 Approved by: Andrew Guy M.D. on 05/28/2023 at 9:38
--- NOTE | 2023-05-27 17:13 | DI.RAD.S_ITS ---
PROCEDURE: XR THORACIC SPINE 2V INDICATIONS: Age-related osteoporosis without current pathological fracture TECHNIQUE: 2 views of the thoracic spine were acquired. COMPARISON: None. FINDINGS: Bones: No fractures or dislocations. No suspicious bony lesions. 12 pairs of ribs are noted, and appear intact where visualized. Mild multilevel degenerative disc disease. Soft tissues: No paravertebral stripe thickening. IMPRESSION: No acute bony abnormality. No compression deformity. Dictated by: Andrew Guy M.D. on 05/28/2023 at 9:38 Approved by: Andrew Guy M.D. on 05/28/2023 at 9:38
[2023-05-27 18:36] LABS: Alanine Aminotransferase 22 IU/L (<35); Albumin 4.1 g/dL (3.5-5.0); Albumin Globulin Ratio 1.5 (1.0-2.8); Alkaline Phosphatase 55 U/L (38-126); Aspartate Aminotransferase 24 IU/L (14-36); BUN Creatinine Ratio 25.4 (6-22); Bilirubin Total 0.5 mg/dL (0.2-1.3); Blood Urea Nitrogen 18 mg/dL (7-17); Calcium 9.5 mg/dL (8.4-10.2); Carbon Dioxide 34 mmol/L (22-32); Chloride 98 mmol/L (98-107); Estimated Glomerular Filt Rate > 60 mL/min (>60); Globulin 2.7 g/dL (1.7-4.1); Glucose 87 mg/dL (80-110); HEMOLYSIS < 15 (0-50); Potassium 3.8 mmol/L (3.4-5.1); Sodium 134 mmol/L (137-145); Total Protein 6.8 g/dL (6.3-8.2)
[2023-05-27 18:50] LABS: Free T4, Direct Thyroxine 1.01 ng/dL (0.78-2.19)
[2023-05-27 18:52] LABS: Vitamin D 25 Hydroxy (D3) 79.4 ng/mL (30.0-100.0)
[2023-05-27 19:04] LABS: Thyroid Stimulating Hormone 0.695 uIU/mL (0.47-4.68)
[2023-05-30 03:46] LABS: Parathyroid Hormone Int 42 pg/mL (15-65)
[2023-05-30 10:08] LABS: N-telo/Creat. Ratio 54 (0-89); N-telopeptide 330 nmol BCE (Not Estab.)
== END ==
PROVIDERS: Family Provider Internal Medicine; PCP Family Medicine; Referring Provider Internal Medicine Endocrinology, Diabetes & Metabolism; Visit Provider Internal Medicine Endocrinology, Diabetes & Metabolism
DX: M81.8 Other osteoporosis without current pathological fracture (principal); M81.0 Age-related osteoporosis without current pathological fracture; M51.34 Other intervertebral disc degeneration, thoracic region; M51.36 Other intervertebral disc degeneration, lumbar region; M51.37 Other intervertebral disc degeneration, lumbosacral region; M47.816 Spondylosis without myelopathy or radiculopathy, lumbar region; M47.817 Spondylosis without myelopathy or radiculopathy, lumbosacral region
CPT/HCPCS: 36415; 72070; 72100; 80053; 82306; 82523; 82570; 83970; 84439; 84443

== ENCOUNTER → 2023-05-29 11:27 | Outpatient (CLI) | payer MEDICARE, OTHER, SELFPAY ==
[2023-05-29 15:57] LABS: Collection Time Urine 24 Hours; Creatinine 24 Hour Urine 806 mg/day (800-1800); Creatinine Urine Random 47.4 mg/dL; Total Volume Urine 1700 mL
[2023-05-29 15:59] LABS: Calcium 24 Hour Urine 202 mg/day (100-300); Calcium Urine Random 11.9 mg/dL; Collection Time Urine 24 Hours; Total Volume Urine 1700 mL
== END ==
PROVIDERS: Family Provider Internal Medicine; PCP Family Medicine; Referring Provider Internal Medicine Endocrinology, Diabetes & Metabolism; Visit Provider Internal Medicine Endocrinology, Diabetes & Metabolism
DX: M81.0 Age-related osteoporosis without current pathological fracture (principal)
CPT/HCPCS: 82340; 82570

== ENCOUNTER → 2023-09-17 11:17 | Outpatient (CLI) | payer MEDICARE, OTHER, SELFPAY ==
[2023-09-17 12:56] LABS: Blood Urea Nitrogen 16 mg/dL (7-17); Calcium 9.3 mg/dL (8.4-10.2); Carbon Dioxide 33 mmol/L (22-32); Chloride 104 mmol/L (98-107); Estimated Glomerular Filt Rate > 60 mL/min (>60); Glucose 80 mg/dL (80-110); HEMOLYSIS < 15 (0-50); Potassium 4.2 mmol/L (3.4-5.1); Sodium 137 mmol/L (137-145)
[2023-09-17 13:27] LABS: Vitamin D 25 Hydroxy (D3) 86.8 ng/mL (30.0-100.0)
== END ==
PROVIDERS: Family Provider Internal Medicine; PCP Family Medicine; Referring Provider Internal Medicine Endocrinology, Diabetes & Metabolism; Visit Provider Internal Medicine Endocrinology, Diabetes & Metabolism
DX: M81.0 Age-related osteoporosis without current pathological fracture (principal)
CPT/HCPCS: 36415; 80048; 82306

== ENCOUNTER → 2023-10-09 14:31 | Outpatient (CLI) | payer MEDICARE, OTHER, SELFPAY ==
[2023-10-09 15:37] LABS: Add Manual Diff / Slide Review NO; Basophils Absolute Auto 0 /uL (0-100); Basophils Percent Auto 0.7 % (0-2); Eosinophils Absolute Auto 200 /uL (0-450); Eosinophils Percent Auto 3.6 % (2-4); Hematocrit 37.2 % (36-46); Hemoglobin 12.3 g/dL (12.0-16.0); Lymphocytes Absolute Auto 1400 /uL (1100-4500); Lymphocytes Percent Auto 23.1 % (25-40); Mean Corpuscular Volume 96.9 fL (80-100); Monocytes Absolute Auto 600 /uL (0-900); Monocytes Percent Auto 10.4 % (3-14); Neutrophils Absolute Auto 3700 /uL (1500-7000); Neutrophils Percent Auto 62.2 % (50-75); Platelet Count 281 X10^3/uL (150-400); Red Blood Cell Count 3.84 X10^6/uL (4.0-5.2); Red Cell Distribution Width 14.2 % (11.6-14.8)
[2023-10-09 15:46] LABS: Prothrombin Time 11.4 SECONDS (9.4-12.5)
[2023-10-09 15:49] LABS: PTT Partial Thromboplastin Tim 35 SECONDS (25.1-36.5)
[2023-10-09 15:58] LABS: Alanine Aminotransferase 26 IU/L (<35); Albumin Globulin Ratio 1.4 (1.0-2.8); Alkaline Phosphatase 46 U/L (38-126); Aspartate Aminotransferase 25 IU/L (14-36); Bilirubin Total 0.3 mg/dL (0.2-1.3); Blood Urea Nitrogen 21 mg/dL (7-17); Calcium 9.4 mg/dL (8.4-10.2); Carbon Dioxide 31 mmol/L (22-32); Chloride 102 mmol/L (98-107); Estimated Glomerular Filt Rate > 60 mL/min (>60); Globulin 2.8 g/dL (1.7-4.1); Glucose 95 mg/dL (80-110); HEMOLYSIS < 15 (0-50); Potassium 3.9 mmol/L (3.4-5.1); Sodium 137 mmol/L (137-145); Total Protein 6.8 g/dL (6.3-8.2)
[2023-10-09 16:20] LABS: Erythrocyte Sedimentation Rate 7 MM/HR (0-20)
== END ==
LOC: LAB 14:33
PROVIDERS: Family Provider Internal Medicine; PCP Family Medicine; Referring Provider Internal Medicine Hematology & Oncology; Visit Provider Internal Medicine Hematology & Oncology
DX: C91.10 Chronic lymphocytic leukemia of B-cell type not having achieved remission (principal)
CPT/HCPCS: 36415; 80053; 85025; 85610; 85651; 85730

== ENCOUNTER 2024-01-04 11:02 | Emergency (ER) | payer MEDICARE, OTHER, SELFPAY ==
[2024-01-04 11:07] VITALS: BP 107/56; PULSE 74; RESP 16; TEMP 36.8; O2SAT 98; BMI 19.3
--- NOTE | 2024-01-04 12:01 | ED.BACK ---
HPI - Back Pain/Injury <Carina Telles PA-C - Last Filed: 01/04/24 16:05> General Chief Complaint: Back Pain/Injury Stated Complaint: back spasms t-3 Time Seen by Provider: 01/04/24 11:43 Source: patient History of Present Illness HPI Narrative: Patient is a 73-year-old female with multiple sclerosis who presents with spasming of her low back, hips and legs. She reports that she has chronic restless leg which sometimes progresses into episodes of spasms in her hips. She denies recent trauma or fall. She has tried taking ibuprofen yesterday as well as Tylenol without much improvement. She took a hot shower last night and was able to sleep for a short time afterwards. She has trouble walking, urinating and defecating at baseline. She denies fever or chills, new weakness, loss of sensation, or change in mobility since the onset of the symptoms. In the past, she has received muscle relaxers in the emergency room and they have been helpful. Related Data Home Medications Medication Instructions Recorded Confirmed Vitamin D3 1 cap PO DAILY 09/14/19 09/24/23 carbidopa 25 mg-levodopa 100 mg 2 tab PO BEDTIME 09/17/23 09/24/23 tablet Previous Rx's Medication Instructions Recorded baclofen 20 mg tablet 20 mg PO TID #90 tabs 05/21/22 pregabalin 25 mg capsule (Lyrica) 25 mg PO BEDTIME #30 caps 04/03/23 acyclovir 800 mg tablet 800 mg PO DAILY #60 tabs 04/10/23 venlafaxine 75 mg capsule,extended 75 mg PO DAILY #90 caps 09/26/23 release 24 hr (Effexor XR) lorazepam 0.5 mg tablet 0.5 mg PO Q8H PRN muscle spasm #5 01/04/24 tabs Allergies Allergy/AdvReac Type Severity Reaction Status Date / Time amoxicillin [From Augmentin] Allergy Severe ANAPHYLAXIS Verified 01/04/24 11:07 clavulanic acid Allergy Severe ANAPHYLAXIS Verified 01/04/24 11:07 [From Augmentin] codeine AdvReac Mild CONSTIPATIO Verified 01/04/24 11:07 N Review of Systems <Carina Telles PA-C - Last Filed: 01/04/24 16:05> Review of Systems ROS Unobtainable: All systems reviewed & are unremarkable except as noted in HPI and below Patient History <Carina Telles PA-C - Last Filed: 01/04/24 16:05> Medical History Counseling regarding end of life decision making Urinary frequency 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 Contact dermatitis Balance problem Right leg weakness Purple toe syndrome of right foot Swelling of right foot Vaginal discharge, bloody Right foot pain Onychomycosis Constipation Tremor of both hands Osteoporosis (~1999) Osteopenia (~1999) Gout (~1998) Mumps Chicken pox Hearing loss (~2008) Cataracts, bilateral (~2007) Herpes (~1989) Fibroids (~1992) Multiple sclerosis Surgical History Anesthesia History of hysterectomy (~1992) History of hernia repair (~2004) History of breast augmentation History of carpal tunnel release (~1984) Family History Father History of heart disease Hyperlipidemia Mother Liver disease Brother Parkinson's disease Grandfather Cancer Grandmother Cancer Social History Smoking Status: Never smoker Smoking Status: Never smoker alcohol intake frequency: a few times a week Substance Use Type: does not use Exam <Carina Telles PA-C - Last Filed: 01/04/24 16:05> Narrative Exam Narrative: GENERAL: 75 year old patient appears stated age. Cachectic, curled in position. NEURO: AOx3. HEAD: Atraumatic. Normocephalic. EYES: Pupils equal round and reactive. Extraocular motions intact. No scleral icterus. No injection or drainage. ENT: Nose without bleeding or purulent drainage. Throat without erythema, tonsillar hypertrophy or exudate. Airway patent. EXTREMITIES: No edema or joint tenderness. Moves four extremities spontaneously. SPINE/HIPS: no tenderness to palpation. SKIN: No rash or erythema of visible areas Initial Vital Signs Initial Vital Signs: Vital Signs Temperature 98.2 F 01/04/24 11:07 Pulse Rate 74 01/04/24 11:07 Respiratory Rate 16 01/04/24 11:07 Blood Pressure 107/56 L 01/04/24 11:07 Pulse Oximetry 98 01/04/24 11:07 Oxygen Delivery Method Room Air 01/04/24 11:07 <Heidi Barrientos DO - Last Filed: 01/05/24 18:45> Initial Vital Signs Initial Vital Signs: Vital Signs Temperature 98.2 F 01/04/24 11:07 Pulse Rate 74 01/04/24 11:07 Respiratory Rate 16 01/04/24 11:07 Blood Pressure 107/56 L 01/04/24 11:07 Pulse Oximetry 98 01/04/24 11:07 Oxygen Delivery Method Room Air 01/04/24 11:07 Course <Carina Telles PA-C - Last Filed: 01/04/24 16:05> Orders Ordered: Discontinued Medications Cyclobenzaprine HCl (Cyclobenzaprine 10 Mg Tablet) 10 mg PO NOW ONE Stop: 01/04/24 12:01 Last Admin: 01/04/24 12:08 Dose: 10 mg Documented By: MARCOS Ketorolac Tromethamine (Ketorolac 30 Mg/Ml Vial) 30 mg IM NOW ONE Stop: 01/04/24 12:01 Last Admin: 01/04/24 12:08 Dose: 30 mg Documented By: MARCOS Lorazepam (Lorazepam 0.5 Mg Tablet) 0.5 mg PO NOW ONE Stop: 01/04/24 13:36 Last Admin: 01/04/24 13:42 Dose: 0.5 mg Documented By: SB Vital Signs Vital signs: Vital Signs - 8 hr 01/04/24 11:07 01/04/24 15:00 Temperature 98.2 F Pulse Rate 74 Respiratory Rate 16 16 Blood Pressure 107/56 L Pulse Oximetry 98 Oxygen Delivery Method Room Air Room Air <Heidi Barrientos DO - Last Filed: 01/05/24 18:45> Orders Ordered: Discontinued Medications Cyclobenzaprine HCl (Cyclobenzaprine 10 Mg Tablet) 10 mg PO NOW ONE Stop: 01/04/24 12:01 Last Admin: 01/04/24 12:08 Dose: 10 mg Documented By: MARCOS Ketorolac Tromethamine (Ketorolac 30 Mg/Ml Vial) 30 mg IM NOW ONE Stop: 01/04/24 12:01 Last Admin: 01/04/24 12:08 Dose: 30 mg Documented By: MARCOS Lorazepam (Lorazepam 0.5 Mg Tablet) 0.5 mg PO NOW ONE Stop: 01/04/24 13:36 Last Admin: 01/04/24 13:42 Dose: 0.5 mg Documented By: JUAN Vital Signs Vital signs: Vital Signs - 8 hr 01/04/24 11:07 01/04/24 15:00 Temperature 98.2 F Pulse Rate 74 Respiratory Rate 16 16 Blood Pressure 107/56 L Pulse Oximetry 98 Oxygen Delivery Method Room Air Room Air MDM - Back Pain/Injury <Carina Telles PA-C - Last Filed: 01/04/24 16:05> Lab Data 01/04/24 13:48 01/04/24 13:48 Labs: Lab Results 01/04/24 Range/Units 13:48 WBC 5.6 (4.5-11.0) X10^3/uL RBC 3.81 L (4.0-5.2) X10^6/uL Hgb 12.1 (12.0-16.0) g/dL Hct 35.8 L (36-46) % MCV 94.1 (80-100) fL MCH 31.7 (26-34) PG MCHC 33.7 (30-36) % RDW 15.1 H (11.6-14.8) % Plt Count 276 (150-400) X10^3/uL Neut % (Auto) 50.2 (50-75) % Lymph % (Auto) 28.5 (25-40) % [place] % (Auto) 15.1 H (3-14) % Eos % (Auto) 5.2 H (2-4) % Baso % (Auto) 1.0 (0-2) % Neut # (Auto) 2800 (4449-8837) /uL Lymph # (Auto) 1600 (8615-0430) /uL [place] # (Auto) 800 (0-900) /uL Eos # (Auto) 300 (0-450) /uL Baso # (Auto) 100 (0-100) /uL Sodium 139 (137-145) mmol/L Potassium 4.3 (3.4-5.1) mmol/L Chloride 104 (98-107) mmol/L Carbon Dioxide 33 H (22-32) mmol/L BUN 19 H (7-17) mg/dL Creatinine 0.72 (0.52-1.04) mg/dL Estimated GFR > 60 (>60) mL/min BUN/Creatinine Ratio 26.4 H (6-22) Glucose 84 (80-110) mg/dL Calcium 8.7 (8.4-10.2) mg/dL Phosphorus 3.8 (2.8-4.1) mg/dL Magnesium 2.4 H (1.6-2.3) mg/dL Total Bilirubin 0.3 (0.2-1.3) mg/dL AST 21 (14-36) IU/L ALT 24 (<35) IU/L Alkaline Phosphatase 61 (38-126) U/L Total Protein 6.3 (6.3-8.2) g/dL Albumin 3.9 (3.5-5.0) g/dL Globulin 2.4 (1.7-4.1) g/dL Albumin/Globulin Ratio 1.6 (1.0-2.8) MDM Narrative Medical decision making narrative: Patient is a 73-year-old female with history of MS who presents with spasm of her hips, low back and legs x 36 hour. She reports no recent trauma or falls. Her sensation and mobility is at baseline. We will treat with IM ketorolac and p.o. cyclobenzaprine and reassess for improvement. Patient states spasm not improved. Given 0.5mg lorazepam and labs checked to assess for electrolyte abnormality that could contribute to spams; labs without clinically significant abnormality. Patient feels better after lorazepam, able to rest and relax. She feels ready to go home with her daughter. Reviewed safety when taking muscle relaxers, lorazepam. Follow-up with MS neurologist. Patient is followed by primary care and palliative care. <Heidi Barrientos, DO - Last Filed: 01/05/24 18:45> Lab Data Labs: Lab Results 01/04/24 Range/Units 13:48 WBC 5.6 (4.5-11.0) X10^3/uL RBC 3.81 L (4.0-5.2) X10^6/uL Hgb 12.1 (12.0-16.0) g/dL Hct 35.8 L (36-46) % MCV 94.1 (80-100) fL MCH 31.7 (26-34) PG MCHC 33.7 (30-36) % RDW 15.1 H (11.6-14.8) % Plt Count 276 (150-400) X10^3/uL Neut % (Auto) 50.2 (50-75) % Lymph % (Auto) 28.5 (25-40) % [place] % (Auto) 15.1 H (3-14) % Eos % (Auto) 5.2 H (2-4) % Baso % (Auto) 1.0 (0-2) % Neut # (Auto) 2800 (9406-3547) /uL Lymph # (Auto) 1600 (9045-3744) /uL [place] # (Auto) 800 (0-900) /uL Eos # (Auto) 300 (0-450) /uL Baso # (Auto) 100 (0-100) /uL Sodium 139 (137-145) mmol/L Potassium 4.3 (3.4-5.1) mmol/L Chloride 104 (98-107) mmol/L Carbon Dioxide 33 H (22-32) mmol/L BUN 19 H (7-17) mg/dL Creatinine 0.72 (0.52-1.04) mg/dL Estimated GFR > 60 (>60) mL/min BUN/Creatinine Ratio 26.4 H (6-22) Glucose 84 (80-110) mg/dL Calcium 8.7 (8.4-10.2) mg/dL Phosphorus 3.8 (2.8-4.1) mg/dL Magnesium 2.4 H (1.6-2.3) mg/dL Total Bilirubin 0.3 (0.2-1.3) mg/dL AST 21 (14-36) IU/L ALT 24 (<35) IU/L Alkaline Phosphatase 61 (38-126) U/L Total Protein 6.3 (6.3-8.2) g/dL Albumin 3.9 (3.5-5.0) g/dL Globulin 2.4 (1.7-4.1) g/dL Albumin/Globulin Ratio 1.6 (1.0-2.8) Discharge Plan Departure Patient Disposition: Home Clinical Impression: Multiple sclerosis, Muscle spasm of both lower legs, Back muscle spasm Instructions: DI for Back Spasm Activity Restrictions/Additional Instructions: Your blood tests were normal today. Please continue taking your baclofen 20mg 3 times per day, can increase to 4 times per day if desired. I have prescribed a small quantity of lorazepam tablets which you can take as needed every 8 hours for muscle spasm. You can restart the Sinemet tomorrow when you are feeling better. If you are not feeling better by Saturday morning, please call your MS doctor and let them know. Prescriptions: New lorazepam 0.5 mg tablet 0.5 mg PO Q8H PRN (Reason: muscle spasm) Qty: 5 0RF No Action baclofen 20 mg tablet 20 mg PO TID Qty: 90 3RF acyclovir 800 mg tablet 800 mg PO DAILY Qty: 60 1RF Rx Instructions: 1/2 tab 1-2 times daily unless active outbreak then increase to TID. venlafaxine [Effexor XR] 75 mg capsule,extended release 24hr 75 mg PO DAILY Qty: 90 2RF pregabalin [Lyrica] 25 mg capsule 25 mg PO BEDTIME Qty: 30 3RF carbidopa-levodopa 25-100 mg tablet 2 tab PO BEDTIME Vitamin D3 1 cap PO DAILY Referrals: Kaleb Oakley DO [Primary Care Provider] - Stand Alone Forms: Patient Portal/API ED Sign-out <Heidi Barrientos DO - Last Filed: 01/05/24 18:45> Cosign ED Attending Cosyolieature Attestation: I was immediately available in the department for consultation.
[2024-01-04] MEDS: CYCLOBENZAPRINE 10 MG TABLET PO (12:08)
[2024-01-04] MEDS: KETOROLAC 30 MG/ML VIAL IM (12:08)
[2024-01-04] MEDS: LORazepam 0.5 MG TABLET PO (13:42)
[2024-01-04 13:55] LABS: Add Manual Diff / Slide Review NO; Basophils Absolute Auto 100 /uL (0-100); Eosinophils Absolute Auto 300 /uL (0-450); Eosinophils Percent Auto 5.2 % (2-4); Hematocrit 35.8 % (36-46); Hemoglobin 12.1 g/dL (12.0-16.0); Lymphocytes Absolute Auto 1600 /uL (1100-4500); Lymphocytes Percent Auto 28.5 % (25-40); Mean Corpuscular HGB Conc 33.7 % (30-36); Mean Corpuscular Hemoglobin 31.7 PG (26-34); Mean Corpuscular Volume 94.1 fL (80-100); Monocytes Absolute Auto 800 /uL (0-900); Monocytes Percent Auto 15.1 % (3-14); Neutrophils Absolute Auto 2800 /uL (1500-7000); Neutrophils Percent Auto 50.2 % (50-75); Platelet Count 276 X10^3/uL (150-400); Red Blood Cell Count 3.81 X10^6/uL (4.0-5.2); Red Cell Distribution Width 15.1 % (11.6-14.8); White Blood Cell Count 5.6 X10^3/uL (4.5-11.0)
[2024-01-04 14:04] LABS: Alanine Aminotransferase 24 IU/L (<35); Albumin 3.9 g/dL (3.5-5.0); Albumin Globulin Ratio 1.6 (1.0-2.8); Alkaline Phosphatase 61 U/L (38-126); Aspartate Aminotransferase 21 IU/L (14-36); BUN Creatinine Ratio 26.4 (6-22); Bilirubin Total 0.3 mg/dL (0.2-1.3); Blood Urea Nitrogen 19 mg/dL (7-17); Calcium 8.7 mg/dL (8.4-10.2); Carbon Dioxide 33 mmol/L (22-32); Chloride 104 mmol/L (98-107); Estimated Glomerular Filt Rate > 60 mL/min (>60); Globulin 2.4 g/dL (1.7-4.1); Glucose 84 mg/dL (80-110); HEMOLYSIS < 15 (0-50); Magnesium 2.4 mg/dL (1.6-2.3); Phosphorous 3.8 mg/dL (2.8-4.1); Potassium 4.3 mmol/L (3.4-5.1); Sodium 139 mmol/L (137-145); Total Protein 6.3 g/dL (6.3-8.2)
--- NOTE | 2024-01-04 14:59 | PC.NURSE ---
Pt c/o lower leg spasms and pain/difficulty ambulating
[2024-01-04 15:00] VITALS: RESP 16
== END 2024-01-04 15:01 | disposition home or self-care (01) ==
PROVIDERS: Emergency Provider Physician Assistant; Family Provider Internal Medicine; PCP Family Medicine
DX: G35 Multiple sclerosis (principal); M62.830 Muscle spasm of back; M62.838 Other muscle spasm
CPT/HCPCS: 80053; 83735; 84100; 85025; 96372; 99283; J1885

== ENCOUNTER → 2024-02-11 14:23 | Outpatient (CLI) | payer MEDICARE, OTHER, SELFPAY ==
[2024-02-11 16:19] LABS: Vitamin B12 827 pg/mL (239-931)
== END ==
LOC: LAB 14:24
PROVIDERS: Family Provider Internal Medicine; PCP Family Medicine; Referring Provider Family Medicine; Visit Provider Family Medicine
DX: G35 Multiple sclerosis (principal)
CPT/HCPCS: 36415; 82607

== ENCOUNTER → 2024-04-15 08:52 | Outpatient (CLI) | payer MEDICARE, OTHER, SELFPAY ==
[2024-04-15 09:44] LABS: Add Manual Diff / Slide Review NO; Basophils Absolute Auto 0 /uL (0-100); Basophils Percent Auto 1.1 % (0-2); Eosinophils Absolute Auto 200 /uL (0-450); Eosinophils Percent Auto 3.8 % (2-4); Hematocrit 38.8 % (36-46); Lymphocytes Absolute Auto 1200 /uL (1100-4500); Lymphocytes Percent Auto 25.1 % (25-40); Mean Corpuscular HGB Conc 33.6 % (30-36); Mean Corpuscular Hemoglobin 32.2 PG (26-34); Mean Corpuscular Volume 95.8 fL (80-100); Monocytes Absolute Auto 500 /uL (0-900); Monocytes Percent Auto 10.3 % (3-14); Neutrophils Absolute Auto 2800 /uL (1500-7000); Neutrophils Percent Auto 59.7 % (50-75); Platelet Count 304 X10^3/uL (150-400); Red Blood Cell Count 4.05 X10^6/uL (4.0-5.2); Red Cell Distribution Width 14.2 % (11.6-14.8); White Blood Cell Count 4.7 X10^3/uL (4.5-11.0)
[2024-04-15 10:09] LABS: Alanine Aminotransferase 13 IU/L (<35); Albumin Globulin Ratio 1.4 (1.0-2.8); Alkaline Phosphatase 63 U/L (38-126); Aspartate Aminotransferase 21 IU/L (14-36); BUN Creatinine Ratio 23.3 (6-22); Bilirubin Total 0.4 mg/dL (0.2-1.3); Blood Urea Nitrogen 20 mg/dL (7-17); Calcium 9.9 mg/dL (8.4-10.2); Carbon Dioxide 35 mmol/L (22-32); Chloride 99 mmol/L (98-107); Estimated Glomerular Filt Rate > 60 mL/min (>60); Globulin 2.8 g/dL (1.7-4.1); Glucose 98 mg/dL (80-110); HEMOLYSIS < 15 (0-50); Potassium 3.9 mmol/L (3.4-5.1); Sodium 137 mmol/L (137-145); Total Protein 6.8 g/dL (6.3-8.2)
[2024-04-15 10:44] LABS: Erythrocyte Sedimentation Rate 14 MM/HR (0-20)
[2024-04-15 17:32] LABS: Lactate Dehydrogenase 187 U/L (120-246)
[2024-04-16 04:14] LABS: IGA 133 mg/dL (64-422); IGG 858 mg/dL (586-1602); IGM 42 mg/dL (26-217)
[2024-04-17 14:12] LABS: Beta-2-Microglobulin 2.1 mg/L (0.6-2.4)
== END ==
PROVIDERS: Family Provider Internal Medicine; PCP Family Medicine; Referring Provider Internal Medicine Hematology & Oncology; Visit Provider Internal Medicine Hematology & Oncology
DX: C82.69 Cutaneous follicle center lymphoma, extranodal and solid organ sites (principal); G35 Multiple sclerosis; C91.10 Chronic lymphocytic leukemia of B-cell type not having achieved remission
CPT/HCPCS: 36415; 80053; 82232; 82784; 83615; 85025; 85651

== ENCOUNTER → 2024-05-14 12:44 | Outpatient (CLI) | payer MEDICARE, OTHER, SELFPAY ==
[2024-05-14 14:18] LABS: Appearance Urine UA CLEAR; Bilirubin Urine UA NEGATIVE (NEGATIVE); Color Urine UA YELLOW; Glucose Urine UA NEGATIVE (Negative); Ketones Urine UA NEGATIVE (NEGATIVE); Leukocyte Esterase Urine UA NEGATIVE (NEGATIVE); Nitrite Urine UA NEGATIVE (Negative); Occult Blood Urine UA NEGATIVE (Negative); Protein Urine UA NEGATIVE (Negative); Urobilinogen Urine UA 0.2 E.U./dL (0.2); pH Urine UA 6.5 (4.5-8.0)
[2024-05-14 14:26] LABS: RBC Urine None Seen (0-5/HPF); Urine Volume 10mL (spun)
[2024-05-14 14:27] LABS: Bacteria Urine None Seen; Culture Indicated Urine Cult Not Indicated; Squamous Epithelial Cell Urine 0-1 /HPF (0-5/HPF); WBC Urine None Seen (0-5/HPF)
== END ==
PROVIDERS: Family Provider Internal Medicine; PCP Family Medicine; Referring Provider Psychiatry & Neurology Neurology; Visit Provider Psychiatry & Neurology Neurology
DX: R41.0 Disorientation, unspecified (principal)
CPT/HCPCS: 81001

== ENCOUNTER → 2024-06-23 11:30 | Outpatient (CLI) | payer MEDICARE, OTHER, SELFPAY ==
--- NOTE | 2024-06-23 11:35 | DI.RAD.S_ITS ---
PROCEDURE: XR HIP W PEL IF DONE RT 2V INDICATIONS: hip pain TECHNIQUE: AP pelvis with lateral view(s) of the right hip(s). COMPARISON: [facility], , XR HIP W PEL IF DONE VEL 3TO4V, 08/24/2019, 10:49. FINDINGS: Bones: No fractures or dislocations. 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 Pelvic ring appears intact. No suspicious bony lesions. Soft tissues: The visualized bowel gas pattern is normal. No suspicious soft tissue calcifications. IMPRESSION: No acute osseous abnormalities. 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 Dictated by: Adama Shah M.D. on 06/23/2024 at 15:40 Approved by: Adama Shah M.D. on 06/23/2024 at 15:41
[2024-06-23 13:31] LABS: BUN Creatinine Ratio 23.9 (6-22); Blood Urea Nitrogen 17 mg/dL (7-17); Calcium 9.1 mg/dL (8.4-10.2); Carbon Dioxide 32 mmol/L (22-32); Chloride 101 mmol/L (98-107); Estimated Glomerular Filt Rate > 60 mL/min (>60); Glucose 107 mg/dL (80-110); HEMOLYSIS < 15 (0-50); Potassium 3.8 mmol/L (3.4-5.1); Sodium 138 mmol/L (137-145)
== END ==
LOC: RAD 11:34
PROVIDERS: Family Provider Internal Medicine; PCP Family Medicine; Referring Provider Internal Medicine Endocrinology, Diabetes & Metabolism; Visit Provider Internal Medicine Endocrinology, Diabetes & Metabolism
DX: M81.0 Age-related osteoporosis without current pathological fracture (principal); M25.551 Pain in right hip; G89.29 Other chronic pain
CPT/HCPCS: 36415; 73502; 80048

== ENCOUNTER → 2024-07-30 09:59 | Outpatient (CLI) | payer MEDICARE, OTHER, SELFPAY ==
[2024-07-30 12:04] LABS: BUN Creatinine Ratio 30.5 (6-22); Blood Urea Nitrogen 25 mg/dL (7-17); Calcium 9.7 mg/dL (8.4-10.2); Carbon Dioxide 33 mmol/L (22-32); Chloride 98 mmol/L (98-107); Estimated Glomerular Filt Rate > 60 mL/min (>60); Glucose 80 mg/dL (80-110); HEMOLYSIS < 15 (0-50); Potassium 4.5 mmol/L (3.4-5.1); Sodium 138 mmol/L (137-145)
[2024-07-30 12:15] LABS: Vitamin D 25 Hydroxy (D3) 81.1 ng/mL (30.0-100.0)
== END ==
PROVIDERS: Family Provider Internal Medicine; PCP Family Medicine; Referring Provider Internal Medicine Endocrinology, Diabetes & Metabolism; Visit Provider Internal Medicine Endocrinology, Diabetes & Metabolism
DX: M81.0 Age-related osteoporosis without current pathological fracture (principal)
CPT/HCPCS: 36415; 80048; 82306

== ENCOUNTER → 2024-08-18 13:19 | Outpatient (CLI) | payer MEDICARE, OTHER, SELFPAY ==
--- NOTE | 2024-08-18 13:21 | DI.RAD.S_ITS ---
PROCEDURE: XR DEXA AXIAL SKELETON INDICATIONS: AGE RELATED OSTEOPOROSIS COMPARISON: [facility], CR, XR DEXA AXIAL SKELETON, 02/14/2023, 10:10. [facility], CR, XR DEXA AXIAL SKELETON, 06/22/2019, 15:05. FINDINGS: Lumbar Spine: Bone mineral density 0.933 g/cm2, T score -0.8, previously -1.4. The lowest T-score is -1.3 for the L2 vertebral body. Left Femoral Neck: Bone mineral density 0.528 g/cm2, T score -2.9. Left Hip: Bone mineral density 0.551 g/cm2, T score -3.2, previously -3.4. Fracture Risk Calculation (when applicable): 10-year fracture risk of a major osteoporotic fracture 33 percent and of a hip fracture 24 percent. (T score greater or equal to -1.0 to: NORMAL) (T score from -1.1 to -2.4: OSTEOPENIA) (T score less than or equal to -2.5: OSTEOPOROSIS) IMPRESSION: 1. Normal bone density of the lumbar spine, although the L2 vertebral body is osteopenic. 2. Osteoporosis of the left hip and femoral neck. Follow-up guidelines as follows: Osteoporosis: Consider a repeat DEXA and Vertebral Fracture Assessment (VFA) exam in 2 years or sooner if medically necessary, to reassess this patient's status. Osteopenia: Consider a repeat DEXA in 2-3 years to reassess this patient's status, or if there is a new clinical indication. Normal: Consider a repeat DEXA in 5 years or sooner, or if there is a new clinical indication. All treatment decisions require clinical judgment and consideration of individual patient factors, including patient preferences, comorbidities, previous drug use, risk factors not captured in the FRAX model (e.g., frailty, falls, vitamin D deficiency, increased bone turnover, interval significant decline in bone density ) and possible under- or over-estimation of fracture risk by FRAX. In addition, the NOF Guide recommends that FDA-approved medical therapies be considered in postmenopausal women and men age >= 50 years with a: * Hip or vertebral (clinical or morphometric) fracture * T-score of <=-2.5 at the spine or hip * Ten-year fracture probability by FRAX of >= 3% for hip fracture or >=20% for major osteoporotic fracture. Dictated by: Andi Hudson M.D. on 08/18/2024 at 14:35 Approved by: Andi Hudson M.D. on 08/18/2024 at 14:37
== END ==
PROVIDERS: Family Provider Internal Medicine; PCP Family Medicine; Referring Provider Internal Medicine Endocrinology, Diabetes & Metabolism; Visit Provider Internal Medicine Endocrinology, Diabetes & Metabolism
DX: M81.0 Age-related osteoporosis without current pathological fracture (principal)
CPT/HCPCS: 77080

== ENCOUNTER → 2024-09-05 11:40 | Outpatient (CLI) | payer MEDICARE, OTHER, SELFPAY ==
[2024-09-05 12:39] LABS: Add Manual Diff / Slide Review NO; Basophils Absolute Auto 0 /uL (0-100); Basophils Percent Auto 0.7 % (0-2); Eosinophils Absolute Auto 100 /uL (0-450); Eosinophils Percent Auto 2.4 % (2-4); Hematocrit 39.5 % (36-46); Hemoglobin 13.2 g/dL (12.0-16.0); Lymphocytes Absolute Auto 1900 /uL (1100-4500); Lymphocytes Percent Auto 31.4 % (25-40); Mean Corpuscular HGB Conc 33.5 % (30-36); Mean Corpuscular Hemoglobin 32.1 PG (26-34); Mean Corpuscular Volume 95.8 fL (80-100); Monocytes Absolute Auto 600 /uL (0-900); Monocytes Percent Auto 9.2 % (3-14); Neutrophils Absolute Auto 3500 /uL (1500-7000); Neutrophils Percent Auto 56.3 % (50-75); Platelet Count 301 X10^3/uL (150-400); Red Blood Cell Count 4.13 X10^6/uL (4.0-5.2); Red Cell Distribution Width 14.1 % (11.6-14.8); White Blood Cell Count 6.2 X10^3/uL (4.5-11.0)
[2024-09-05 12:52] LABS: Alanine Aminotransferase 11 IU/L (<35); Albumin 4.6 g/dL (3.5-5.0); Alkaline Phosphatase 50 U/L (38-126); Aspartate Aminotransferase 23 IU/L (14-36); BUN Creatinine Ratio 31.3 (6-22); Bilirubin Total 0.3 mg/dL (0.2-1.3); Blood Urea Nitrogen 21 mg/dL (7-17); Calcium 9.7 mg/dL (8.4-10.2); Carbon Dioxide 33 mmol/L (22-32); Chloride 99 mmol/L (98-107); Estimated Glomerular Filt Rate > 60 mL/min (>60); Globulin 2.3 g/dL (1.7-4.1); Glucose 88 mg/dL (80-110); HEMOLYSIS < 15 (0-50); Lactate Dehydrogenase 187 U/L (120-246); Potassium 4.7 mmol/L (3.4-5.1); Sodium 138 mmol/L (137-145); Total Protein 6.9 g/dL (6.3-8.2)
[2024-09-05 14:04] LABS: Erythrocyte Sedimentation Rate 7 MM/HR (0-20)
[2024-09-07 07:36] LABS: IGA 124 mg/dL (64-422); IGG 906 mg/dL (586-1602); IGM 42 mg/dL (26-217)
[2024-09-08 15:39] LABS: Beta-2-Microglobulin 1.8 mg/L (0.6-2.4)
== END ==
PROVIDERS: Family Provider Internal Medicine; PCP Family Medicine; Referring Provider Internal Medicine Hematology & Oncology; Visit Provider Internal Medicine Hematology & Oncology
DX: C82.69 Cutaneous follicle center lymphoma, extranodal and solid organ sites (principal); G35 Multiple sclerosis; C91.10 Chronic lymphocytic leukemia of B-cell type not having achieved remission
CPT/HCPCS: 36415; 80053; 82232; 82784; 83615; 85025; 85651

== ENCOUNTER 2024-11-28 12:49 | Emergency (ER) | payer MEDICARE, OTHER, SELFPAY ==
[2024-11-28 12:55] VITALS: BP 121/73; PULSE 64; RESP 16; TEMP 37.1; O2SAT 97; BMI 19.7
== END 2024-11-28 13:50 | disposition left against medical advice (07) ==
PROVIDERS: Emergency Provider Emergency Medicine; Family Provider Internal Medicine; PCP Family Medicine
CPT/HCPCS: 99281

== ENCOUNTER → 2024-12-24 10:59 | Outpatient (CLI) | payer MEDICARE, OTHER, SELFPAY ==
--- NOTE | 2024-12-24 11:00 | DI.RAD.S_ITS ---
PROCEDURE: XR LUMBAR SPINE 2-3V INDICATIONS: back pain TECHNIQUE: 3 views of the lumbar spine were acquired. COMPARISON: [facility], CR, XR LUMBAR SPINE 2-3V, 05/27/2023, 17:15. FINDINGS: Bones: 5 [id number] vertebrae are present. Anterolisthesis of L4 on L5 measures 9 mm. Severe L5-S1 and moderate to severe L3-L4 and L4-L5 disc height loss with adjacent endplate sclerosis and anterior osteophytosis. No vertebral body compression fractures. No suspicious bony lesions. Soft tissues: Overlying bowel gas pattern is normal. No suspicious soft tissue calcifications. IMPRESSION: Degenerative change including anterolisthesis of L4 on L5 without evidence of acute bony abnormality. Dictated by: Andi Jeffers M.D. on 12/25/2024 at 1:29 Approved by: Andi Jeffers M.D. on 12/25/2024 at 1:31
--- NOTE | 2024-12-24 11:00 | DI.RAD.S_ITS ---
PROCEDURE: XR THORACIC SPINE 2V INDICATIONS: back pain TECHNIQUE: 2 views of the thoracic spine were acquired. COMPARISON: [facility], CR, XR THORACIC SPINE 2V, 05/27/2023, 17:15. FINDINGS: Bones: No definite acute fractures or dislocations. Moderate degenerative changes at consecutive levels of the thoracic spine include disc height loss, adjacent endplate sclerosis and multilevel anterior osteophytosis. Chronic appearing anterior wedging deformities of the T10 and T11 vertebral bodies have resulted in less than 25% anterior height loss. No suspicious bony lesions. 12 pairs of ribs are noted, and appear intact where visualized. Soft tissues: No paravertebral stripe thickening. IMPRESSION: Moderate multilevel degenerative change at consecutive levels of the thoracic spine and chronic appearing anterior T10 and T11 wedging deformities without evidence of acute osseous abnormality. Dictated by: Andi Jeffers M.D. on 12/25/2024 at 1:31 Approved by: Andi Jeffers M.D. on 12/25/2024 at 1:33
--- NOTE | 2024-12-24 11:00 | DI.RAD.S_ITS ---
PROCEDURE: XR PELVIS 1-2V INDICATIONS: back pain TECHNIQUE: Single AP view of the pelvis acquired. COMPARISON: None. FINDINGS: Bones: No fractures or dislocations. Mild osteoarthritic degenerative change of the bilateral hips includes joint space narrowing, marginal osteophytosis and acetabular subchondral sclerosis. No suspicious bony lesions. Soft tissues: Visualized bowel gas pattern is normal. No suspicious soft tissue calcifications. IMPRESSION: Mild degenerative change of the bilateral hips without evidence acute bony abnormality. Dictated by: Andi Jeffers M.D. on 12/25/2024 at 1:33 Approved by: Andi Jeffers M.D. on 12/25/2024 at 1:34
== END ==
PROVIDERS: Family Provider Internal Medicine; PCP Family Medicine; Referring Provider Family Medicine; Visit Provider Family Medicine
DX: M47.814 Spondylosis without myelopathy or radiculopathy, thoracic region (principal); M47.816 Spondylosis without myelopathy or radiculopathy, lumbar region; M47.817 Spondylosis without myelopathy or radiculopathy, lumbosacral region; M43.16 Spondylolisthesis, lumbar region; M25.651 Stiffness of right hip, not elsewhere classified; M54.9 Dorsalgia, unspecified; M43.8X4 Other specified deforming dorsopathies, thoracic region
CPT/HCPCS: 72070; 72100; 72170

== ENCOUNTER 2024-12-31 14:08 | Emergency (ER) | payer MEDICARE, OTHER, SELFPAY ==
[2024-12-31 14:23] VITALS: BP 128/63; PULSE 68; RESP 14; TEMP 36.8; O2SAT 100; BMI 19.7
[2024-12-31 15:25] LABS: Add Manual Diff / Slide Review NO; Basophils Absolute Auto 100 /uL (0-100); Basophils Percent Auto 0.8 % (0-2); Eosinophils Absolute Auto 300 /uL (0-450); Eosinophils Percent Auto 4.1 % (2-4); Hematocrit 37.4 % (36-46); Hemoglobin 12.7 g/dL (12.0-16.0); Lymphocytes Absolute Auto 2200 /uL (1100-4500); Lymphocytes Percent Auto 30.5 % (25-40); Mean Corpuscular HGB Conc 34.1 % (30-36); Mean Corpuscular Hemoglobin 32.5 PG (26-34); Mean Corpuscular Volume 95.4 fL (80-100); Monocytes Absolute Auto 700 /uL (0-900); Monocytes Percent Auto 9.3 % (3-14); Neutrophils Absolute Auto 4100 /uL (1500-7000); Neutrophils Percent Auto 55.3 % (50-75); Platelet Count 265 X10^3/uL (150-400); Red Blood Cell Count 3.92 X10^6/uL (4.0-5.2); Red Cell Distribution Width 14.3 % (11.6-14.8); White Blood Cell Count 7.4 X10^3/uL (4.5-11.0)
[2024-12-31 15:45] LABS: Alanine Aminotransferase 7 IU/L (<35); Albumin 4.2 g/dL (3.5-5.0); Albumin Globulin Ratio 1.7 (1.0-2.8); Alkaline Phosphatase 58 U/L (38-126); Aspartate Aminotransferase 28 IU/L (14-36); Bilirubin Total 0.3 mg/dL (0.2-1.3); Blood Urea Nitrogen 21 mg/dL (7-17); Calcium 9.6 mg/dL (8.4-10.2); Carbon Dioxide 32 mmol/L (22-32); Chloride 100 mmol/L (98-107); Estimated Glomerular Filt Rate > 60 mL/min (>60); Globulin 2.5 g/dL (1.7-4.1); Glucose 98 mg/dL (70-99); HEMOLYSIS < 15 (0-50); Potassium 3.9 mmol/L (3.4-5.1); Sodium 137 mmol/L (137-145); Total Protein 6.7 g/dL (6.3-8.2)
--- NOTE | 2024-12-31 16:51 | ED.BACK ---
HPI - Back Pain/Injury General Chief Complaint: Back Pain/Injury Stated Complaint: pain in legs MS center was suppose to call abt PT Time Seen by Provider: 12/31/24 14:31 Source: patient History of Present Illness HPI Narrative: 74-year-old woman with a history of Parkinson's disease, multiple sclerosis was instructed by her [facility] MS provider to come to the emergency department for further evaluation of increasing pain in glutes and legs bilaterally. This is worse with walking/weight-bearing. She does have a walker, she has had 7 falls over the last week and a half. Initially thought that this is secondary to Lyrica causing increasing gait disturbance but that medication has continued to wean down and symptoms have not improved. Related Data Home Medications ?Medication ?Instructions ?Recorded ?Confirmed acyclovir 800 mg tablet 800 mg PO .PRN 02/11/24 12/09/24 cholecalciferol (vitamin D3) 1 cap PO DAILY 03/10/24 12/09/24 carbidopa 25 mg-levodopa 100 mg 4 tab PO QID 08/12/24 12/09/24 tablet pregabalin 50 mg capsule 50 mg PO 3XD 11/28/24 12/09/24 venlafaxine 75 mg capsule,extended mg PO 11/28/24 12/09/24 release 24 hr (Effexor XR) Previous Rx's ?Medication ?Instructions ?Recorded venlafaxine 150 mg tablet,extended 150 mg PO DAILY #90 tabs 06/18/24 release 24 hr baclofen 20 mg tablet See Rx Instructions PO .O.D. #360 07/06/24 tabs dexamethasone 4 mg tablet 10 mg (2.5 x 4 mg) PO DAILY #5 tabs 12/31/24 diazepam 2 mg tablet 2 mg PO BID PRN muscle spasm #60 12/31/24 tabs Allergies Allergy/AdvReac Type Severity Reaction Status Date / Time amoxicillin (From Augmentin) Allergy Severe ANAPHYLAXIS Verified 12/09/24 13:23 clavulanic acid (From Allergy Severe ANAPHYLAXIS Verified 12/09/24 13:23 Augmentin) codeine AdvReac Mild CONSTIPATIO Verified 12/09/24 13:23 N Review of Systems Review of Systems Narrative: Pertinent positive and negative findings as per HPI Patient History Medical History (Updated 12/31/24 @ 19:36 by Ana M Spears MD) Back pain Arm laceration Somatic dysfunction of lower extremity Stiffness of joint of right pelvic region and thigh Change in stool Pelvic somatic dysfunction Sacral region somatic dysfunction Bilateral leg pain Chronic right hip pain 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 Leg cramps, sleep related Counseling regarding end of life decision making Urinary frequency 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 Contact dermatitis Balance problem Right leg weakness Purple toe syndrome of right foot Swelling of right foot Vaginal discharge, bloody Right foot pain Onychomycosis Constipation Tremor of both hands Osteoporosis (~1999) Osteopenia (~1999) Gout (~1998) Mumps Chicken pox Hearing loss (~2008) Cataracts, bilateral (~2007) Herpes (~1989) Fibroids (~1992) Multiple sclerosis Surgical History Anesthesia History of hysterectomy (~1992) History of hernia repair (~2004) History of breast augmentation History of carpal tunnel release (~1984) Family History Father History of heart disease Hyperlipidemia Mother Liver disease Brother Parkinson's disease Grandfather Cancer Grandmother Cancer Social History Smoking Status: Never smoker Smoking Status: Never smoker alcohol intake frequency: a few times a week Exam Initial Vital Signs Initial Vital Signs: Vital Signs Temperature 98.3 F 12/31/24 14:23 Pulse Rate 68 12/31/24 14:23 Respiratory Rate 14 12/31/24 14:23 Blood Pressure 128/63 12/31/24 14:23 Pulse Oximetry 100 12/31/24 14:23 Oxygen Delivery Method Room Air 12/31/24 14:23 General: Frail, in pain, able to cooperate with exam HEENT: Moist mucous membranes, normal sclera with reactive pupils, Respiratory: Lungs are clear to auscultation, no wheezing no rales no rhonchi. Full and symmetrical air movement Cardiac: Regular rate and rhythm no murmurs no bruits Abdomen: Soft, nontender, no rebound or guarding, no flank pain Neurologic: Muscle spasm into the gluteus and hamstring muscles that is positional better when she is slightly flexed at the hips. Extremities: No trauma, no lower extremity edema Psych: Cooperative, appropriate insight and affect Course Orders Ordered: ED Orders 12/31/24 15:13 Complete Blood Count AUTO DIFF Stat Comprehensive Metabolic Panel Stat 12/31/24 16:59 MR lumbar spine wo con Stat Discontinued Medications Diazepam (Diazepam 10 Mg/2 Ml Syringe) 5 mg IV NOW ONE Stop: 12/31/24 17:05 Last Admin: 12/31/24 17:25 Dose: 5 mg Documented By: MEGAN Vital Signs Vital signs: Vital Signs - 8 hr 12/31/24 14:23 Temperature 98.3 F Pulse Rate 68 Respiratory Rate 14 Blood Pressure 128/63 Pulse Oximetry 100 Oxygen Delivery Method Room Air MDM - Back Pain/Injury Lab Data 12/31/24 15:13 12/31/24 15:13 Labs: Lab Results 12/31/24 Range/Units 15:13 WBC 7.4 (4.5-11.0) X10^3/uL RBC 3.92 L (4.0-5.2) X10^6/uL Hgb 12.7 (12.0-16.0) g/dL Hct 37.4 (36-46) % MCV 95.4 (80-100) fL MCH 32.5 (26-34) PG MCHC 34.1 (30-36) % RDW 14.3 (11.6-14.8) % Plt Count 265 (150-400) X10^3/uL Neut % (Auto) 55.3 (50-75) % Lymph % (Auto) 30.5 (25-40) % Luce % (Auto) 9.3 (3-14) % Eos % (Auto) 4.1 H (2-4) % Baso % (Auto) 0.8 (0-2) % Neut # (Auto) 4100 (6927-0843) /uL Lymph # (Auto) 2200 (2737-6021) /uL Luce # (Auto) 700 (0-900) /uL Eos # (Auto) 300 (0-450) /uL Baso # (Auto) 100 (0-100) /uL Sodium 137 (137-145) mmol/L Potassium 3.9 (3.4-5.1) mmol/L Chloride 100 (98-107) mmol/L Carbon Dioxide 32 (22-32) mmol/L BUN 21 H (7-17) mg/dL Creatinine 0.70 (0.52-1.04) mg/dL Estimated GFR > 60 (>60) mL/min BUN/Creatinine Ratio 30.0 H (6-22) Glucose 98 (70-99) mg/dL Calcium 9.6 (8.4-10.2) mg/dL Total Bilirubin 0.3 (0.2-1.3) mg/dL AST 28 (14-36) IU/L ALT 7 (<35) IU/L Alkaline Phosphatase 58 (38-126) U/L Total Protein 6.7 (6.3-8.2) g/dL Albumin 4.2 (3.5-5.0) g/dL Globulin 2.5 (1.7-4.1) g/dL Albumin/Globulin Ratio 1.7 (1.0-2.8) Imaging Data MR lumbar spine: Radiologist's Impression: PROCEDURE: MR LUMBAR SPINE WO CON INDICATIONS: progressive glut and hamstring pain and spasm, has MS,falls TECHNIQUE: Noncontrast sagittal T1 spin echo and T2 fast echo, sagittal STIR, and T2 fast spin echo through the lumbar spine. In cases with scoliosis, additional coronal T2 fast spin echo may be performed. COMPARISON: [facility], CT, CT CHEST ABDOMEN PELVIS WITH CONTRAST, 04/30/2023, 10:03. FINDINGS: Image quality: Excellent. Alignment and Curvature: There is normal bony alignment. Bone Marrow: Marrow is of normal overall signal. No acute vertebral body compression fractures. Spinal Cord: Conus medullaris terminates at the L1 level. Visualized cord demonstrates normal signal and size. Paraspinous Soft Tissues: No paravertebral masses. Multiple hepatic cysts. T12-L1: Normal appearance. L1-L2: Disc desiccation, trace right facet effusion, ligamentum flavum hypertrophy. L2-L3: Disc desiccation, very mild broad-based disc bulge, ligamentum flavum hypertrophy, facet effusions and hypertrophy. L3-L4: Broad-based disc bulge, facet hypertrophy, ligamentum flavum hypertrophy, facet effusions causing moderate to severe spinal canal narrowing. There is suspected disc sequestration along the posterior aspect of L4, causing severe narrowing of the left subarticular recess. L4-L5: Facet hypertrophy, facet effusions, ligamentum flavum hypertrophy, broad-based disc bulge causing severe spinal canal narrowing and moderate left neural foraminal narrowing. L5-S1: Disc osteophyte complex, facet hypertrophy and effusions. Mild bilateral neural foraminal narrowing. IMPRESSION: Multilevel degenerative disc disease and facet arthrosis. Of note: Severe spinal canal narrowing at L4-5. Moderate to severe spinal canal narrowing at L3-4. Suspected disc sequestration posterior to the L4 vertebral body, severely narrowing the subarticular recess at this level on the left. There is nerve contact present. Mild to moderate, multilevel neural foraminal narrowing. Dictated by: Andrew Guy M.D. on 12/31/2024 at 18:08 [facility] Narrative Medical decision making narrative: CC: Increasing pain in buttocks and legs over the last weeks with increasing falls, 7 in the left week. Complicating co-morbidities: Multiple sclerosis, Parkinson's Data collected from: patient Medical records reviewed: Discussed care with her MS doctor at [facility],Dr Marzena Barron. Her concern was with reports of increasing buttock and hamstring cramping that the pain may be related to lumbar spine pathology or severe canal stenosis and does not seem to be related to her MS or Parkinson's disease. Her request was that the patient come in for further evaluation and consideration of MR lumbar imaging. She has had fairly recent MR imaging of the remaining of her [employer]URN[employer] and Dr. Barron did not feel that full MRI scanning of the brain or cervical or thoracic spine was required today Differential considered: Pain from her MS, lumbar stenosis, lumbar disc disease, pathologic fracture, epidural abscess, epidural infection Exam documented above, pertinent findings include: Frail, gluteal and hamstring spasm that is positional. Better when she is standing and bending forward worse when she is standing straight. Neurologic sequelae of her MS Lab Test results independently reviewed as above. Pertinent findings: CBC is unremarkable Chemistries are reassuring Imaging studies independently reviewed: Discussion with MS provider at [facility], it was upon her recommendation that the patient come to the emergency department. MRI shows Severe spinal canal narrowing at L4-5. Moderate to severe spinal canal narrowing at L3-4.Suspected disc sequestration posterior to the L4 vertebral body, severely narrowing the subarticular recess at this level on the left. There is nerve contact present.Mild to moderate, multilevel neural foraminal narrowing. Consultations: Dr Barron, MS specialist [facility] Treatments: IV diazepam 5 mg Discussion: 74-year-old woman with MS and years of increasing buttock and hamstring pain that physicians have been attributing to her MS. In discussion with her current MS doctor possibility of spinal stenosis causing the buttock and hamstring pain was entertained, to that and she comes to the emergency department. In consultation with her doctor we tried 5 mg of IV diazepam which actually was quite helpful with the muscle spasm. MRI does indicate severe spinal stenosis which does seem consistent with her overall presentation. There was no evidence of abscess or infection, no pathologic tumors. The current buttock and hamstring pain does not seem to be directly related to her MS. Again, in consultation with her MS physician we will have her continue her relatively high doses of baclofen 20 mg b.i.d. and to that we will add 2 mg of diazepam b.i.d.. We will ask patient to follow up with her primary care physician with referral to senior design engineering specialist. We will try 3 days of dexamethasone to see if this helps with the inflammation. Does she may have some benefit with an epidural steroid injection prior to surgical interventions. All of these findings reviewed with the patient and her daughter. This point she is safe for discharge home she has all of the assistive devices and safety parameters needed for safe discharge home. Questions are answered he will follow up with your primary care physician Discharge Plan Departure Patient Disposition: Home Clinical Impression: Multiple sclerosis Lumbar spinal stenosis Qualifiers: Neurogenic claudication status: with neurogenic claudication Qualified Code(s): M48.062 - Spinal stenosis, lumbar region with neurogenic claudication Instructions: DI for Spinal Stenosis Activity Restrictions/Additional Instructions: Thank you for coming in tonight The MRI of your lumbar spine tonight does show that you have severe spinal stenosis. The spinal canal is narrowing enough that it is pinching of the nerves of the very end of your spinal cord that is causing your butt and t the back of your legs to spasm and hurts so much. It does not seem that your MS is responsible for this specific pain. I spoke with Dr. Barron. Her recommendation was to add 2 mg of diazepam morning and night to your usual regimen to help with the muscle spasm. This prescription was sent to [facility] I am going to give you 3 days of dexamethasone, a steroid to help with the acute inflammation. The 1st dose was given in the ER 3 or IV. You need to take 10 mg the evening of the and the . You need to follow up with Dr. Oakley regarding the new spinal stenosis diagnosis. There are procedureal treatments such as epidural steroid injections as well as surgical interventions that might be considered. I hope you get to feeling better. If you find that you are getting worse or develop any new symptoms, please feel free to return to the emergency department for further evaluation. Prescriptions: New dexamethasone 4 mg tablet 10 mg PO DAILY Qty: 5 0RF diazepam 2 mg tablet 2 mg PO BID PRN (Reason: muscle spasm) Qty: 60 0RF No Action pregabalin 50 mg capsule 50 mg PO 3XD venlafaxine [Effexor XR] 75 mg capsule,extended release 24hr PO venlafaxine 150 mg tablet extended release 24hr 150 mg PO DAILY Qty: 90 3RF acyclovir 800 mg tablet 800 mg PO .PRN Rx Instructions: 1/2 tab 1-2 times daily unless active outbreak then increase to TID. carbidopa-levodopa 25-100 mg tablet 4 tab PO QID cholecalciferol (vitamin D3) 1 cap PO DAILY baclofen 20 mg tablet See Rx Instructions PO .O.D. Qty: 360 3RF Rx Instructions: orally O.D.; Take 1 tab in the AM, 1 tab in the afternoon, and 2 tabs before bead Referrals: Kaleb Oakley DO [Primary Care Provider, Family Practice] Stand Alone Forms: Patient Portal/API
--- NOTE | 2024-12-31 16:59 | DI.MRI.S_ITS ---
PROCEDURE: MR LUMBAR SPINE WO CON INDICATIONS: progressive glut and hamstring pain and spasm, has MS,falls TECHNIQUE: Noncontrast sagittal T1 spin echo and T2 fast echo, sagittal STIR, and T2 fast spin echo through the lumbar spine. In cases with scoliosis, additional coronal T2 fast spin echo may be performed. COMPARISON: [facility], CT, CT CHEST ABDOMEN PELVIS WITH CONTRAST, 04/30/2023, 10:03. FINDINGS: Image quality: Excellent. Alignment and Curvature: There is normal bony alignment. Bone Marrow: Marrow is of normal overall signal. No acute vertebral body compression fractures. Spinal Cord: Conus medullaris terminates at the L1 level. Visualized cord demonstrates normal signal and size. Paraspinous Soft Tissues: No paravertebral masses. Multiple hepatic cysts. T12-L1: Normal appearance. L1-L2: Disc desiccation, trace right facet effusion, ligamentum flavum hypertrophy. L2-L3: Disc desiccation, very mild broad-based disc bulge, ligamentum flavum hypertrophy, facet effusions and hypertrophy. L3-L4: Broad-based disc bulge, facet hypertrophy, ligamentum flavum hypertrophy, facet effusions causing moderate to severe spinal canal narrowing. There is suspected disc sequestration along the posterior aspect of L4, causing severe narrowing of the left subarticular recess. L4-L5: Facet hypertrophy, facet effusions, ligamentum flavum hypertrophy, broad-based disc bulge causing severe spinal canal narrowing and moderate left neural foraminal narrowing. L5-S1: Disc osteophyte complex, facet hypertrophy and effusions. Mild bilateral neural foraminal narrowing. IMPRESSION: Multilevel degenerative disc disease and facet arthrosis. Of note: Severe spinal canal narrowing at L4-5. Moderate to severe spinal canal narrowing at L3-4. Suspected disc sequestration posterior to the L4 vertebral body, severely narrowing the subarticular recess at this level on the left. There is nerve contact present. Mild to moderate, multilevel neural foraminal narrowing. Dictated by: Andrew Guy M.D. on 12/31/2024 at 18:08 Approved by: Andrew Guy M.D. on 12/31/2024 at 18:13
[2024-12-31 17:02] VITALS: BP 121/58; PULSE 67; O2SAT 95
[2024-12-31] MEDS: diazePAM 10 MG/2 ML SYRINGE 5 MG IV (17:25)
[2024-12-31 17:42] VITALS: PULSE 65; O2SAT 96
[2024-12-31 17:43] VITALS: BP 131/71; PULSE 64; O2SAT 96
[2024-12-31 18:00] VITALS: BP 148/72; PULSE 61; O2SAT 98
[2024-12-31] MEDS: DEXAMETHASONE 10 MG/ML VIAL IV (19:45)
[2024-12-31 19:54] VITALS: BP 128/58; PULSE 65; RESP 16; O2SAT 99
== END 2024-12-31 19:54 | disposition home or self-care (01) ==
PROVIDERS: Emergency Provider Emergency Medicine; Family Provider Internal Medicine; PCP Family Medicine
DX: M48.062 Spinal stenosis, lumbar region with neurogenic claudication (principal); G35 Multiple sclerosis
CPT/HCPCS: 36415; 72148; 80053; 85025; 96374; 96375; 99284; J1100; J3360

== ENCOUNTER 2025-05-31 10:04 | Emergency (ER) | payer MEDICARE, OTHER, SELFPAY ==
[2025-05-31 10:11] VITALS: BP 113/59; PULSE 70; RESP 18; TEMP 36.6; O2SAT 97
--- NOTE | 2025-05-31 10:11 | DI.RAD.S_ITS ---
PROCEDURE: XR HIP W PEL IF DONE RT 2V INDICATIONS: pain TECHNIQUE: AP pelvis with lateral view(s) of the right hip(s). COMPARISON: [facility], , XR HIP W PEL IF DONE RT 2V, 06/23/2024, 11:34. FINDINGS: Bones: No fractures or dislocations. Mildly congenitally shallow acetabuli bilaterally. Mild lateral unroofing of the femoral heads, right greater than left. Mild superimposed degenerative arthritis. Pelvic ring appears intact. No suspicious bony lesions. Soft tissues: The visualized bowel gas pattern is normal. No suspicious soft tissue calcifications. IMPRESSION: No acute bony abnormality. Dictated by: Otis Sandoval M.D. on 05/31/2025 at 11:17 Approved by: Otis Sandoval M.D. on 05/31/2025 at 11:18
--- NOTE | 2025-05-31 10:11 | ED.LOWEXIN ---
HPI - Extremity Injury (Lower) <Kendy Hinojosa DO - Last Filed: 06/07/25 23:34> General Chief Complaint: Extremity Problem,Nontraumatic Stated Complaint: 04/16 hip pain Time Seen by Provider: 05/31/25 10:10 History of Present Illness HPI Narrative: Patient is a 75-year-old female history of multiple sclerosis, gout osteoporosis presenting today with ongoing right hip pain. She reports that she has had ongoing low back pain she gets injections at [facility]. She has severe spinal stenosis. Today she reports increasing pain mostly with weight-bearing activity. She has not fallen. She is able to move her hip now. Received a 1000 mg of Tylenol and took her home meds not in any pain now. Denies any fever or chills. Last injection was about 3 months ago. Related Data Home Medications ?Medication ?Instructions ?Recorded ?Confirmed acyclovir 800 mg tablet 800 mg PO .PRN 02/11/24 06/04/25 cholecalciferol (vitamin D3) 1 cap PO DAILY 03/10/24 06/04/25 venlafaxine 75 mg capsule,extended 75 mg PO DAILY 11/28/24 06/04/25 release 24 hr (Effexor XR) pregabalin 50 mg capsule 25 mg PO TID 01/06/25 06/04/25 Previous Rx's ?Medication ?Instructions ?Recorded diazepam 2 mg tablet 2 mg PO BID PRN muscle spasm #60 12/31/24 tabs baclofen 10 mg tablet 10 mg PO TID #90 tabs 06/07/25 pregabalin 25 mg capsule (Lyrica) 25 mg PO TID #90 caps 06/07/25 Allergies Allergy/AdvReac Type Severity Reaction Status Date / Time amoxicillin (From Augmentin) Allergy Severe ANAPHYLAXIS Verified 06/04/25 12:41 clavulanic acid (From Allergy Severe ANAPHYLAXIS Verified 06/04/25 12:41 Augmentin) carbidopa (From Sinemet) AdvReac Severe Confusion Verified 06/07/25 08:34 levodopa (From Sinemet) AdvReac Severe Confusion Verified 06/07/25 08:34 Iodinated Contrast Media AdvReac Intermediate Verified 06/04/25 12:41 codeine AdvReac Mild CONSTIPATIO Verified 06/04/25 12:41 N Review of Systems <Lesly Mesa PA-C - Last Filed: 05/31/25 17:45> Constitutional Constitutional: Denies chills, Denies fatigue, Denies fever(s), Denies frequent falls, Denies lethargy and Denies weakness Eyes Eyes: Denies change in vision, Denies eye discharge, Denies irritation and Denies loss of vision ENT Ears, Nose, Mouth, and Throat: Denies change in voice, Denies dizziness, Denies neck pain, Denies sore throat and Denies throat swelling Cardiovascular Cardiovascular: Denies chest pain, Denies irregular heart rhythm, Denies lightheadedness, Denies palpitations, Denies dyspnea, Denies dyspnea on exertion and Denies orthopnea Respiratory Respiratory: Denies cough, Denies dyspnea, Denies dyspnea on exertion and Denies wheezing Gastrointestinal Gastrointestinal: Denies abdominal pain, Denies change in bowel habits, Denies diarrhea, Denies nausea and Denies vomiting Musculoskeletal Musculoskeletal: Denies neck pain and Denies numbness Comments: Right hip pain Integumentary/Breasts Skin/Breast: Denies pruritus, Denies erythema, Denies rash and Denies wounds Neurologic Neurologic: Denies behavioral changes, Denies confusion, Denies dizziness, Denies frequent falls, Denies loss of vision, Denies numbness and Denies weakness Psychiatric Psychiatric: Denies anxiety, Denies behavioral changes, Denies confusion, Denies depression, Denies homicidal ideation and Denies suicidal ideation Endocrine Endocrine: Denies fatigue, Denies flushing and Denies palpitations Hematologic/Lymphatic Hematologic/Lymphatic: Denies easy bruising Allergic/Immunologic Allergic/Immunologic: Denies urticaria, Denies throat swelling and Denies wheezing Patient History <Kendy Hinojosa DO - Last Filed: 06/07/25 23:34> Medical History Back pain Arm laceration Somatic dysfunction of lower extremity Stiffness of joint of right pelvic region and thigh Change in stool Pelvic somatic dysfunction Sacral region somatic dysfunction Bilateral leg pain Chronic right hip pain 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 Leg cramps, sleep related Counseling regarding end of life decision making Urinary frequency 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 Contact dermatitis Balance problem Right leg weakness Purple toe syndrome of right foot Swelling of right foot Vaginal discharge, bloody Right foot pain Onychomycosis Constipation Tremor of both hands Osteoporosis (~1999) Osteopenia (~1999) Gout (~1998) Mumps Chicken pox Hearing loss (~2008) Cataracts, bilateral (~2007) Herpes (~1989) Fibroids (~1992) Multiple sclerosis Surgical History Anesthesia History of hysterectomy (~1992) History of hernia repair (~2004) History of breast augmentation History of carpal tunnel release (~1984) Family History Father History of heart disease Hyperlipidemia Mother Liver disease Brother Parkinson's disease Grandfather Cancer Grandmother Cancer Social History household members: family and children Smoking Status: Former smoker alcohol intake: former alcohol intake frequency: a few times a week Exam <Kendy Hinojosa DO - Last Filed: 06/07/25 23:34> Initial Vital Signs Initial Vital Signs: Vital Signs Temperature 97.8 F 05/31/25 10:11 Pulse Rate 70 05/31/25 10:11 Respiratory Rate 18 05/31/25 10:11 Blood Pressure 113/59 L 05/31/25 10:11 Pulse Oximetry 97 05/31/25 10:11 Oxygen Delivery Method Room Air 05/31/25 10:11 GENERAL: Alert pleasant 75-year-old female with MS features and in no acute distress. HEENT: Head atraumatic,EOMI, pupils reactive, face symmetric, moist mucous membranes CARDIOVASCULAR: Regular rate and rhythm without murmurs, rubs or gallops. RESPIRATORY: Breath sounds equal bilaterally, no wheezes rales or rhonchi. ABDOMEN: Soft, nontender. Normoactive bowel sounds all 4 quadrants. No guarding or rebound. EXTREMITIES: Normal range of motion, no clubbing or edema. Neurovascularly intact Right hip able to flex extend internally and externally rotate strong distal pedal pulse is present, no real erythema no continue NEUROLOGICAL: Alert and oriented x4.Normal gait and speech. Cranial nerves II through XII grossly intact. SKIN: Warm, dry, no laceration, no petechiae, no rashes or lesions. <Lesly Mesa PA-C - Last Filed: 05/31/25 17:45> Initial Vital Signs Initial Vital Signs: Vital Signs Temperature 97.8 F 05/31/25 10:11 Pulse Rate 70 05/31/25 10:11 Respiratory Rate 18 05/31/25 10:11 Blood Pressure 113/59 L 05/31/25 10:11 Pulse Oximetry 97 05/31/25 10:11 Oxygen Delivery Method Room Air 05/31/25 10:11 Course <Kendy Hinojosa DO - Last Filed: 06/07/25 23:34> Orders Ordered: Discontinued Medications Cyclobenzaprine HCl (Cyclobenzaprine 10 Mg Tablet) 10 mg PO NOW ONE Stop: 05/31/25 12:27 Last Admin: 05/31/25 12:32 Dose: 10 mg Documented By: RB Ketorolac Tromethamine (Ketorolac 30 Mg/Ml Vial) 30 mg IM NOW ONE Stop: 05/31/25 12:27 Last Admin: 05/31/25 12:31 Dose: 30 mg Documented By: RB Vital Signs Vital signs: Vital Signs - 8 hr 05/31/25 10:11 05/31/25 13:38 Temperature 97.8 F 98.3 F Pulse Rate 70 77 Respiratory Rate 18 16 Blood Pressure 113/59 L 159/75 H Pulse Oximetry 97 98 Oxygen Delivery Method Room Air Room Air <Lesly Mesa PA-C - Last Filed: 05/31/25 17:45> Orders Ordered: Discontinued Medications Cyclobenzaprine HCl (Cyclobenzaprine 10 Mg Tablet) 10 mg PO NOW ONE Stop: 05/31/25 12:27 Last Admin: 05/31/25 12:32 Dose: 10 mg Documented By: RB Ketorolac Tromethamine (Ketorolac 30 Mg/Ml Vial) 30 mg IM NOW ONE Stop: 05/31/25 12:27 Last Admin: 05/31/25 12:31 Dose: 30 mg Documented By: RB Vital Signs Vital signs: Vital Signs - 8 hr 05/31/25 10:11 05/31/25 13:38 Temperature 97.8 F 98.3 F Pulse Rate 70 77 Respiratory Rate 18 16 Blood Pressure 113/59 L 159/75 H Pulse Oximetry 97 98 Oxygen Delivery Method Room Air Room Air MDM - Extremity Injury (Lower) <Kendy Hinojosa DO - Last Filed: 06/07/25 23:34> MDM Narrative Medical decision making narrative: Patient initially seen evaluated by myself. X-ray ordered. Patient signed out to Lesly Mesa for disposition Patient is a 75-year-old female history of multiple sclerosis, gout osteoporosis presenting today with ongoing right hip pain. X-ray was obtained which was without acute findings. Patient's symptoms have improved with Tylenol, however pain still persists. Will give a dose of Flexeril, Toradol. Will discharge home with a prescription for Flexeril. Patient has taken Flexeril with good relief in the past. Patient has good follow-up with neurology and her MS specialist and is scheduled to see them in June. ED return precautions discussed with patient. Patient verbalized understanding. Medical records reviewed: Yes <Lesly Mesa PA-C - Last Filed: 05/31/25 17:45> MDM Narrative Medical decision making narrative: Patient is a 75-year-old female history of multiple sclerosis, gout osteoporosis presenting today with ongoing right hip pain. X-ray was obtained which was without acute findings. Patient's symptoms have improved with Tylenol, however pain still persists. Will give a dose of Flexeril, Toradol. Will discharge home with a prescription for Flexeril. Patient has taken Flexeril with good relief in the past. Patient has good follow-up with neurology and her MS specialist and is scheduled to see them in June. ED return precautions discussed with patient. Patient verbalized understanding. Medical records reviewed: Yes Discharge Plan Departure Patient Disposition: Home Clinical Impression: Acute hip pain Qualifiers: Laterality: right Qualified Code(s): M25.551 - Pain in right hip Instructions: DI for Hip Pain Activity Restrictions/Additional Instructions: You were evaluated in the emergency department today for right-sided hip pain. The x-ray was normal. It appears you have a musculoskeletal sprain/strain of the right hip. You were given a dose of Toradol and Flexeril in the emergency department. You were also being prescribed Flexeril which is a muscle relaxant to take at home as needed. Please follow-up with your neurologist and MS specialist as soon as possible. Return to the ED if you have worsening symptoms, numbness, tingling, weakness, urinary difficulties. Prescriptions: No Action venlafaxine [Effexor XR] 75 mg capsule,extended release 24hr 75 mg PO DAILY pregabalin 50 mg capsule 25 mg PO TID acyclovir 800 mg tablet 800 mg PO .PRN Rx Instructions: 1/2 tab 1-2 times daily unless active outbreak then increase to TID. cholecalciferol (vitamin D3) 1 cap PO DAILY diazepam 2 mg tablet 2 mg PO BID PRN (Reason: muscle spasm) Qty: 60 0RF baclofen 10 mg Tablet 10 mg PO TID Qty: 90 0RF pregabalin [Lyrica] 25 mg capsule 25 mg PO TID Qty: 90 1RF Referrals: Kaleb Oakley DO [Primary Care Provider, Family Practice] Stand Alone Forms: Patient Portal/API ED Sign-out <Kendy Hinojosa DO - Last Filed: 06/07/25 23:34> Cosign ED Attending Cosignature Attestation: I was available for consultation.
[2025-05-31] MEDS: KETOROLAC 30 MG/ML VIAL IM (12:31)
[2025-05-31] MEDS: CYCLOBENZAPRINE 10 MG TABLET PO (12:32)
[2025-05-31 13:38] VITALS: BP 159/75; PULSE 77; RESP 16; TEMP 36.8; O2SAT 98
== END 2025-05-31 13:39 | disposition home or self-care (01) ==
PROVIDERS: Emergency Provider Student in an Organized Health Care Education/Training Program; Family Provider Internal Medicine; PCP Family Medicine
DX: M25.551 Pain in right hip (principal)
CPT/HCPCS: 73502; 96372; 99283; J1885

== ENCOUNTER 2025-06-04 12:14 | Inpatient (IN) | payer MEDICARE, OTHER, SELFPAY ==
[2025-06-04] VITALS (9 sets, daily range): BP systolic 141–167; BP diastolic 65–83; PULSE 63–66; RESP 12–22; TEMP 36.5–36.7; O2SAT 95–100; BMI 20.5
[2025-06-04 13:24] LABS: Add Manual Diff / Slide Review NO; Hematocrit 38.3 % (36-46); Hemoglobin 12.8 g/dL (12.0-16.0); Lymphocytes Absolute Auto 1900 /uL (1100-4500); Mean Corpuscular HGB Conc 33.5 % (30-36); Mean Corpuscular Hemoglobin 31.7 PG (26-34); Mean Corpuscular Volume 94.6 fL (80-100); Platelet Count 235 X10^3/uL (150-400)
[2025-06-04 13:28] LABS: Alanine Aminotransferase 8 IU/L (<35); Albumin 4.3 g/dL (3.5-5.0); Albumin Globulin Ratio 1.7 (1.0-2.8); Alkaline Phosphatase 53 U/L (38-126); Blood Urea Nitrogen 25 mg/dL (7-17); Calcium 9.6 mg/dL (8.4-10.2); Carbon Dioxide 30 mmol/L (22-32); Chloride 105 mmol/L (98-107); Estimated Glomerular Filt Rate > 60 mL/min (>60); Globulin 2.6 g/dL (1.7-4.1); Glucose 91 mg/dL (70-99); HEMOLYSIS 16 (0-50); Potassium 4.0 mmol/L (3.4-5.1); Sodium 141 mmol/L (137-145); Total Protein 6.9 g/dL (6.3-8.2)
--- NOTE | 2025-06-04 13:37 | ED_ITS ---
HPI - Extremity Problem General Chief complaint: Weakness Stated complaint: Weakness Time Seen by Provider: 06/04/25 12:56 Source: patient, family and EMS Mode of arrival: EMS History of Present Illness HPI Narrative: 75 yo female here with her family member for evaluation of lower extremity pain she describes as a spasm radiating to bilateral hips and low back. She wasn't able to walk today: my legs wouldn't hold me. Leg spasms have been worsening over years. Pt follows along with MS specialist at [facility]. Has hx of MS and spinal stenosis. Daughter reports 1-2 weeks of disorientation that ebbs and flows. Yesterday she did not know where she was or the company she was with (while at dinner with daughters stated she needed to call her daughter). Daughter reports she had noted her mother to have whole body weakness, typically gets around with use of walker. She has noted a change in her affect and speech is more drawn out.. New medications were prescribed recently: tizanidine on 05/21 ([facility]) as well as cyclobenzaprine starting 05/31 (ER visit) and diazepam 05/26 ([facility]). Pt is also prescribed lyrica and ativan. Pt lives at home with her grandson and his Related Data Home Medications ?Medication ?Instructions ?Recorded ?Confirmed acyclovir 800 mg tablet 800 mg PO .PRN 02/11/2405/09 cholecalciferol (vitamin D3) 1 cap PO DAILY 03/10/24 1 08/04/24 venlafaxine 75 mg capsule,extended 75 mg PO DAILY 11/0606/04/25 release 24 hr (Effexor XR) baclofen 10 mg tablet See Rx Instructions PO TID 0 01/06/25 06/04/25 carbidopa 25 mg-levodopa 100 mg 2 tab PO TID 01/06/25 06/04/25 tablet pregabalin 50 mg capsule 25 mg PO TID 01/06/25 tizanidine 4 mg tablet 1 mg PO TID 06/04/25 5 Held on 06/04/25. Instructions: ER DR TOLD TO HOLD Previous Rx's ?Medication ?Instructions ?Recorded diazepam 2 mg tablet 2 mg PO BID PRN muscle spasm #60 12/31/24 tabs cyclobenzaprine 10 mg tablet 10 mg PO TID PRN muscle s pasm #20 05/31/25 tabs Allergies Allergy/AdvReac Type Severity Reaction Status Date / Time amoxicillin (From Augmentin) Allergy Severe ANAPHYLAXIS Verified 06/04/25 12:41 clavulanic acid (From Allergy Severe ANAPHYLAXIS Verified 06/04/25 12:41 Augmentin) Iodinated Contrast Media AdvReac Intermediate Verified 06/04/25 12:41 codeine AdvReac Mild CONSTIPATIO Verified 06/04/25 12:41 N Review of Systems Review of Systems Narrative: Pertinent ROS obtained and negative except as stated in HPI Patient History Medical History Back pain Arm laceration Somatic dysfunction of lower extremity Stiffness of joint of right pelvic region and thigh Change in stool Pelvic somatic dysfunction Sacral region somatic dysfunction Bilateral leg pain Chronic right hip pain 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 Leg cramps, sleep related Counseling regarding end of life decision making Urinary frequency 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 Contact dermatitis Balance problem Right leg weakness Purple toe syndrome of right foot Swelling of right foot Vaginal discharge, bloody Right foot pain Onychomycosis Constipation Tremor of both hands Osteoporosis (~1999) Osteopenia (~1999) Gout (~1998) Mumps Chicken pox Hearing loss (~2008) Cataracts, bilateral (~2007) Herpes (~1989) Fibroids (~1992) Multiple sclerosis Surgical History Anesthesia History of hysterectomy (~1992) History of hernia repair (~2004) History of breast augmentation History of carpal tunnel release (~1984) Family History Father History of heart disease Hyperlipidemia Mother Liver disease Brother Parkinson's disease Grandfather Cancer Grandmother Cancer Social History household members: family and children Smoking Status: Former smoker alcohol intake: former Smoking Status: Former smoker alcohol intake frequency: a few times a week Exam Initial Vital Signs Initial Vital Signs: Vital Signs Pulse Rate 65 06/04/25 12:28 Pulse Oximetry 95 06/04/25 12:28 Constitutional: Chronically ill-appearing 75-year-old female resting on the bed appears drowsy, oriented x3 Head: NCAT Cardiovascular: RRR, no murmur or rub Pulmonary: CTA bilaterally, no respiratory distress Abdominal: soft, non-tender Extremities: No LE edema. Full passive range of motion of lower extremities Skin: warm and dry, no diaphoresis Neurological: Alert and oriented x3. There is 5/5 symmetric strength in lower extremities with the exception of right dorsiflexion. Sensation intact to light touch. No facial droop. Speech is clear. No nuchal rigidity. Course Orders Ordered: Acetaminophen (Acetaminophen 325 Mg Tablet) 650 mg PO Q6H PRN PRN Reason: Fever/Mild Pain (1-3) Baclofen (Baclofen 10 Mg Tablet) 10 mg PO TID [facility] Last Admin: 06/05/25 20:31 Dose: 10 mg Documented By: Admin: 06/05/25 16:09 Dose: 10 mg Documented By: Admin: 06/05/25 09:27 Dose: 10 mg Documented By: Admin: 06/04/25 20:24 Dose: 10 mg Documented By: KRIS Diazepam (Diazepam 2 Mg Tablet) 2 mg PO BID PRN PRN Reason: Muscle Spasm Last Admin: 06/05/25 02:33 Dose: 2 mg Documented By: KRIS Lidocaine (Remove Lidocaine Patch) 1 each TOP BEDTIME ONE Stop: 06/06/25 21:01 Morphine Sulfate (Morphine 4 Mg/Ml Inj) 2 mg IV Q2H PRN PRN Reason: pain Last Admin: 06/04/25 16:52 Dose: 2 mg Documented By: IMAN Morphine Sulfate (Morphine 2 Mg/Ml Inj) 2 mg IV Q2HR PRN PRN Reason: Pain, Moderate (4-6) Naloxone HCl (Naloxone 0.4 Mg/Ml Vial) 0.2 mg IV Q2MIN PRN PRN Reason: Opiate Reversal Oxycodone HCl (Oxycodone Ir 5 Mg Tablet) 5 mg PO Q4HR PRN PRN Reason: Pain, Moderate (4-6) Pregabalin (Pregabalin 25 Mg Capsule) 25 mg PO TID [facility] Last Admin: 06/05/25 20:31 Dose: 25 mg Documented By: Admin: 06/05/25 16:09 Dose: 25 mg Documented By: Admin: 06/05/25 09:27 Dose: 25 mg Documented By: Admin: 06/04/25 20:23 Dose: 25 mg Documented By: KRIS Sennosides (Sennosides 8.6 Mg Tablet) 17.2 mg PO BEDTIME [facility] Last Admin: 06/05/25 20:31 Dose: 17.2 mg Documented By: Admin: 06/04/25 20:24 Dose: 17.2 mg Documented By: KRIS Sodium Chloride (Sodium Chloride 0.9% Flush) 10 ml IV PRN PRN PRN Reason: Flush Sodium Chloride (Sodium Chloride 0.9% Flush) 10 ml IV BID [facility] Last Admin: 06/05/25 20:32 Dose: 10 ml Documented By: KRIS Sodium Chloride (Sodium Chloride 0.9% Flush) 10 ml IV PRN PRN PRN Reason: Flush Venlafaxine HCl (Venlafaxine Er 75 Mg Cap) 75 mg PO DAILY [facility] Last Admin: 06/05/25 09:27 Dose: 75 mg Documented By: GRACIELA Discontinued Medications Acetaminophen (Acetaminophen 325 Mg Tablet) 975 mg PO NOW ONE Stop: 06/04/25 13:54 Last Admin: 06/04/25 14:20 Dose: 975 mg Documented By: IMAN(2) Sodium Chloride (Normal Saline 0.9%) 1,000 mls @ 1,000 mls/hr IV BOLUS ONE Stop: 06/04/25 16:30 Last Infusion: 06/04/25 17:15 Dose: Infused Documented By: Admin: 06/04/25 16:01 Dose: 1,000 mls/hr Documented By: IMAN(2) Sodium Chloride (Normal Saline 0.9%) 1,000 mls @ 100 mls/hr IV CONT [facility] Last Infusion: 06/05/25 13:13 Dose: Infused Documented By: Admin: 06/05/25 02:36 Dose: 100 mls/hr Documented By: Infusion: 06/05/25 02:36 Dose: Infused Documented By: Admin: 06/04/25 17:51 Dose: 100 mls/hr Documented By: FRANKO Ketorolac Tromethamine (Ketorolac 30 Mg/Ml Vial) 15 mg IV NOW ONE Stop: 06/04/25 13:54 Last Admin: 06/04/25 14:11 Dose: 15 mg Documented By: IMAN(2) Lidocaine (Lidocaine 5% Patch) 1 each TOP NOW ONE Stop: 06/04/25 13:54 Last Admin: 06/04/25 14:20 Dose: 1 each Documented By: SBF(2) Morphine Sulfate (Morphine 2 Mg/Ml Inj) 2 mg IV NOW ONE Stop: 06/04/25 15:41 Last Admin: 06/04/25 15:57 Dose: Not Given Documented By: SBF(2) Vital Signs Vital signs: Vital Signs - 8 hr 06/04/25 12:28 06/04/25 12:30 06/04/25 12:39 Temperature Pulse Rate 65 64 64 Respiratory Rate 22 Blood Pressure Pulse Oximetry 95 96 100 Oxygen Delivery Method 06/04/25 12:39 06/04/25 12:41 06/04/25 13:00 Temperature 97.7 F Pulse Rate 63 Respiratory Rate 15 Blood Pressure 144/73 H 141/75 H 163/72 H Pulse Oximetry 95 Oxygen Delivery Method Room Air 06/04/25 13:00 06/04/25 13:30 06/04/25 13:30 Temperature Pulse Rate 66 64 Respiratory Rate 13 16 Blood Pressure 142/65 H Pulse Oximetry 96 96 Oxygen Delivery Method 06/04/25 14:00 06/04/25 14:00 06/04/25 14:30 Temperature Pulse Rate 64 Respiratory Rate 17 Blood Pressure 167/74 H 156/75 H Pulse Oximetry 98 Oxygen Delivery Method 06/04/25 14:30 Temperature Pulse Rate 63 Respiratory Rate 18 Blood Pressure Pulse Oximetry 96 Oxygen Delivery Method Room Air MDM - Extremity (Nontraumatic) Lab Data 06/06/25 04:59 06/06/25 04:59 Labs: Lab Results 06/04/25 06/04/25 06/04/25 Range/Units 12:29 12:30 14:17 WBC 7.0 (4.5-11.0) X10^3/uL RBC 4.05 (4.0-5.2) X10^6/uL Hgb 12.8 (12.0-16.0) g/dL Hct 38.3 (36-46) % MCV 94.6 (80-100) fL MCH 31.7 (26-34) PG MCHC 33.5 (30-36) % RDW 14.1 (11.6-14.8) % Plt Count 235 (150-400) X10^3/uL Neut % (Auto) 57.6 (50-75) % Lymph % (Auto) 26.5 (25-40) % [place] % (Auto) 10.3 (3-14) % Eos % (Auto) 4.4 H (2-4) % Baso % (Auto) 1.2 (0-2) % Neut # (Auto) 4000 (6347-1896) /uL Lymph # (Auto) 1900 (9417-6907) /uL [place] # (Auto) 700 (0-900) /uL Eos # (Auto) 300 (0-450) /uL Baso # (Auto) 100 (0-100) /uL Sodium 141 (137-145) mmol/L Potassium 4.0 (3.4-5.1) mmol/L Chloride 105 (98-107) mmol/L Carbon Dioxide 30 (22-32) mmol/L BUN 25 H (7-17) mg/dL Creatinine 0.76 (0.52-1.04) mg/dL Estimated GFR > 60 (>60) mL/min BUN/Creatinine Ratio 32.9 H (6-22) Glucose 91 (70-99) mg/dL POC Whole Bld Glucose 92 (70-99) mg/dL Calcium 9.6 (8.4-10.2) mg/dL Total Bilirubin 0.3 (0.2-1.3) mg/dL AST 23 (14-36) IU/L ALT 8 (<35) IU/L Alkaline Phosphatase 53 (38-126) U/L Total Protein 6.9 (6.3-8.2) g/dL Albumin 4.3 (3.5-5.0) g/dL Globulin 2.6 (1.7-4.1) g/dL Albumin/Globulin Ratio 1.7 (1.0-2.8) Urine Color Yellow Urine Appearance Clear Urine pH 7.5 (4.5-8.0) Ur Specific [place] 1.010 (1.000-1.035) Urine Protein Negative (Negative) Urine Glucose (UA) Negative (Negative) g/dL Urine Ketones Negative (NEGATIVE) Urine Occult Blood Negative (Negative) Urine Nitrate Negative (Negative) Urine Bilirubin Negative (NEGATIVE) Urine Urobilinogen 0.2 (0.2) E.U./dL Ur Leukocyte Esterase 1+ H (NEGATIVE) Urine RBC None seen (0-5/HPF) Urine WBC 1-5/hpf (0-5/HPF) Ur Squamous Epith Cells 1-5 /hpf (0-5/HPF) Urine Bacteria Few (2-10) H (None) Ur Culture Indicated? Specimen cultured Vol Urine Centrifuged 10ml (spun) MDM Narrative Medical decision making narrative: In brief, this is a 75-year-old female with history of MS here for evaluation of general weakness, drowsiness, inability to walk, chronic lower extremity pain due to spasm, AMS In chart review: I see in December 2024 had an MRI of her spine which showed degenerative disc disease multilevel in severe spinal canal narrowing at L4-L5, L3-L4. At the L4 level there is suspected disc sequestration posterior to the L4 vertebral body severely narrowing the subarticular recess, [id number] multilevel neural foraminal narrowing At recent ED visit on 05/11, underwent x-ray of right hip which was negative On arrival to the emergency department, the patient is chronically ill- appearing. She does have 4-5/5 strength symmetric in her lower extremities but does have some weakness of the right with dorsiflexion. Normal sensation. Her lower extremity pain is chronic in nature. Patient reportedly not able to stand today and this seems to be what triggered ED visit Differential diagnoses considered but not limited to: At the bedside daughter did bring patient's medications. She is prescribed multiple muscle relaxers including baclofen, diazepam, Flexeril, tizanidine, lorazepam. Pt reportedly taking ALL of these; nothing works. I think polypharmacy likely contributed to disorientation and weakness. Also considered other causes of general weakness such as infection, anemia, dehydration, electrolyte or metabolic derangement. No s/sx of acute CVA. Pt has known severe lumbar stenosis and RLE weakness per daughter. Initial treatment plan includes: IV fluids, oral Tylenol, IV Toradol, lidocaine patch, send basic laboratories, obtain chest x-ray. Pt and daughter requesting something stronger for pain. Will try to avoid sedating type medications. EKG 1421: Sinus rhythm rate of 65 normal intervals normal axis no ST segment elevation or depression Laboratories pertinent for: [facility] BUN creatinine ratio elevation, normal WBC count, urinalysis shows few bacteria without overt infection. It is sent to culture Imaging pertinent for: Chest x-ray negative Spoke with storage management consultant Dr. Daniels at 1553 who will admit the patient for intractable pain. Daughter also requesting additional resources/help at home. Pt does not desire assisted living/placement out of her home. On reassessment at 1547, pt still having pain. Offered IV morphine 2 mg. Discharge Plan Departure Patient Disposition: Admitted as Observation Clinical Impression: Multiple sclerosis, Intractable pain Admit Date/Time: 06/04/25 16:39 Admit Provider: Antelmo Daniels
--- NOTE | 2025-06-04 13:52 | DI.RAD.S_ITS ---
PROCEDURE: XR CHEST 1V INDICATIONS: weak TECHNIQUE: One view of the chest was acquired. COMPARISON: [facility], CR, XR CHEST 1V, 01/31/2022, 8:52. FINDINGS: Surgical changes and devices: None. Lungs and pleura: Lungs are clear. No pleural effusions or pneumothorax. Mediastinum: Mediastinal contours appear normal. Heart size is normal. Bones and chest wall: No suspicious bony lesions. Overlying soft tissues appear unremarkable. IMPRESSION: No acute cardiopulmonary abnormality is seen. Dictated by: Lance Ptee M.D. on 06/04/2025 at 14:07 Approved by: Lance Pete M.D. on 06/04/2025 at 14:08
[2025-06-04] MEDS: KETOROLAC 30 MG/ML VIAL 15 MG IV (14:11)
[2025-06-04] MEDS: ACETAMINOPHEN 325 MG TABLET 975 MG PO (14:20)
[2025-06-04] MEDS: LIDOCAINE 5% PATCH 1 EACH TOP (14:20)
--- NOTE | 2025-06-04 14:21 | EKG_ITS ---
[address] [address] Test Date: 2025-06-04 Pat Name: Verenice Pete Department: [facility] Room: Gender: Female Economics Analyst: VERA : 1950 Requested By: Order Number: [id number] Reading MD: Antelmo Daniels Measurements Intervals [place] Rate: 65 P: 79 NM: 160 QRS: 33 QRSD: 98 T: 71 QT: 432 QTc: 449 Interpretive Statements Normal sinus rhythm Electronically Signed On 06-04-2025 15:08:47 PST by Antelmo Daniels
[2025-06-04 14:37] LABS: Appearance Urine UA CLEAR; Bilirubin Urine UA NEGATIVE (NEGATIVE); Color Urine UA YELLOW; Glucose Urine UA NEGATIVE (Negative); Ketones Urine UA NEGATIVE (NEGATIVE); Leukocyte Esterase Urine UA 1+ (NEGATIVE); Nitrite Urine UA NEGATIVE (Negative); Occult Blood Urine UA NEGATIVE (Negative); Protein Urine UA NEGATIVE (Negative); Specific Gravity Urine UA 1.010 (1.000-1.035); Urobilinogen Urine UA 0.2 E.U./dL (0.2)
[2025-06-04 14:38] LABS: pH Urine UA 7.5 (4.5-8.0)
[2025-06-04 14:41] LABS: Culture Indicated Urine Specimen Cultured
[2025-06-04] MEDS: SODIUM CHLORIDE 0.9% 1,000 ML 1000 ML IV (16:01)
--- NOTE | 2025-06-04 16:50 | PM.HP.1 ---
History of Present Illness History of Present Illness Date Patient Seen: 06/04/25 Time Patient Seen: 18:04 Chief complaint: Weakness Narrative: HPI: The patient is a 75-year-old female with a multi decade history of MS. 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 She was followed by the MS neurology Department at [facility] and also sees a pain doctor for spinal injections at [facility]. She was on a multitude of medications for chronic leg pain and leg spasms. She has been on baclofen for decades and in increase doses. She has a variety of antispasm medications including Flexeril, tizanidine, and diazepam. She was also on Lyrica. She was tried to avoid opiates over the years because she does not want to become addicted. Recently she has become somewhat confused and has increased leg weakness and leg spasms. Her daughters believe she has been confused and taking too many of her medications. Her leg spasms typically started in the right leg and then migrate to the left. The nature of her episodes is chronic and increasing over time. She was also followed by palliative care. The daughters note that she has rejected pain medications such as opiates. It sounds as though multiple practitioners are probably adjusted her medications independently of each other. She apparently was making nonsensical comments at [place] dinner yesterday. She lives with a grandson his and their child. She was 2 daughters who live locally and brought her in today. She denies urinary or fecal incontinence. She can typically ambulate and drive a car as recently as a week to week and a half ago. Her daughters believe she is on too many medications. No fevers, chills, cough, dyspnea, or urinary symptoms. ROS: All else reviewed and otherwise unremarkable except as noted in the history and physical. O: VSS NAD, alert and oriented, fluent speech, calm. Slightly slow speech but she was alert and oriented to person, place and time. Her statements all generally makes sense. Normocephalic skull, EOMI, anicteric sclera, symmetric pupils. Oropharynx unremarkable, no droop. Neck supple, midline trachea, no adenopathy. Lungs clear, normal rate and effort. Heart regular, no murmur gallop or rub. Abdomen is soft, non distended and non tender. Extremities are free of edema. Skin is free of rash or lesions. Joints are not swollen or deformed. Judgment appears to be normal. Her legs are fairly normal in appearance and have normal muscle size and tone. She was good movement of both legs. RECENT IMAGING: Chest x-ray: No acute cardiopulmonary abnormality is seen. May 31 hip x-ray: No acute bony abnormality. December 31 LS spine MRI: T12-L1: Normal appearance. L1-L2: Disc desiccation, trace right facet effusion, ligamentum flavum hypertrophy. L2-L3: Disc desiccation, very mild broad-based disc bulge, ligamentum flavum hypertrophy, facet effusions and hypertrophy. L3-L4: Broad-based disc bulge, facet hypertrophy, ligamentum flavum hypertrophy, facet effusions causing moderate to severe spinal canal narrowing. There is suspected disc sequestration along the posterior aspect of L4, causing severe narrowing of the left subarticular recess. L4-L5: Facet hypertrophy, facet effusions, ligamentum flavum hypertrophy, broad-based disc bulge causing severe spinal canal narrowing and moderate left neural foraminal narrowing. L5-S1: Disc osteophyte complex, facet hypertrophy and effusions. Mild bilateral neural foraminal narrowing. IMPRESSION: Multilevel degenerative disc disease and facet arthrosis. Of note: Severe spinal canal narrowing at L4-5. Moderate to severe spinal canal narrowing at L3-4. Suspected disc sequestration posterior to the L4 vertebral body, severely narrowing the subarticular recess at this level on the left. There is nerve contact present. December 24 thoracic spine x-ray: Moderate multilevel degenerative change at consecutive levels of the thoracic spine and chronic appearing anterior T10 and T11 wedging deformities without evidence of acute osseous abnormality. A/P: 1. Chronic MS and severe lumbar spinal stenosis with increased pain and leg spasms and weakness recently. 2. Polypharmacy with probable confusion regarding recent medications including Lyrica, Effexor, diazepam, baclofen, tizanidine, and Sinemet. PLAN: -polypharmacy reduction -morphine sulfate as needed for pain tonight -PT and OT assessments tomorrow. -Daughters would also like to meet with social work to learn about more resources. It is difficult to know if her leg symptoms are related more to the spinal stenosis that her MS. It sounds as though her spine injections gave her about 2 months of pain relief. It seems likely that her spinal stenosis is the primary initiate her of her leg symptoms. DNR, confirmed tonight. Anticipate 1 midnight in the hospital, supports observation status. 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 Contact dermatitis Balance problem Right leg weakness Purple toe syndrome of right foot Swelling of right foot Vaginal discharge, bloody Right foot pain Onychomycosis Constipation Tremor of both hands Osteoporosis (~1999) Osteopenia (~1999) Gout (~1998) Mumps Chicken pox Hearing loss (~2008) Cataracts, bilateral (~2007) Herpes (~1989) Fibroids (~1992) Multiple sclerosis Surgical History Anesthesia History of hysterectomy (~1992) History of hernia repair (~2004) History of breast augmentation History of carpal tunnel release (~1984) Family History Father History of heart disease Hyperlipidemia Mother Liver disease Brother Parkinson's disease Grandfather Cancer Grandmother Cancer Social History Smoking Status: Former smoker Meds Home Medications and Allergies Home Medications ?Medication ?Instructions ?Recorded ?Confirmed ?Type acyclovir 800 mg tablet 800 mg PO .PRN 02/11/24 06/04/25 History cholecalciferol (vitamin D3) 1 cap PO DAILY 03/10/24 02/08/25 History venlafaxine 150 mg tablet,extended 150 mg PO DAILY #90 tabs 06/18/24 06/04/25 Rx release 24 hr baclofen 20 mg tablet See Rx Instructions PO .O.D. #360 07/06/24 02/08/25 Rx tabs venlafaxine 75 mg capsule,extended mg PO 11/28/24 02/08/25 History release 24 hr (Effexor XR) dexamethasone 4 mg tablet 10 mg (2.5 x 4 mg) PO DAILY #5 tabs 12/31/24 02/08/25 Rx diazepam 2 mg tablet 2 mg PO BID PRN muscle spasm #60 12/31/24 02/08/25 Rx tabs baclofen 10 mg tablet See Rx Instructions PO TID 01/06/25 02/08/25 History carbidopa 25 mg-levodopa 100 mg 2 tab PO TID 01/06/25 06/04/25 History tablet pregabalin 50 mg capsule 25 mg PO BID 01/06/25 06/04/25 History prednisone 20 mg tablet 40 mg (2 x 20 mg) PO DAILY #6 tabs 01/09/25 02/08/25 Rx cyclobenzaprine 10 mg tablet 10 mg PO TID PRN muscle spasm #20 05/31/25 Rx tabs Allergies Allergy/AdvReac Type Severity Reaction Status Date / Time amoxicillin (From Augmentin) Allergy Severe ANAPHYLAXIS Verified 06/04/25 12:41 clavulanic acid (From Allergy Severe ANAPHYLAXIS Verified 06/04/25 12:41 Augmentin) Iodinated Contrast Media AdvReac Intermediate Verified 06/04/25 12:41 codeine AdvReac Mild CONSTIPATIO Verified 06/04/25 12:41 N Exam Vital Signs (past 8 hours): - 06/04/25 12:28 06/04/25 12:30 06/04/25 12:39 Temperature Pulse Rate 65 64 64 Respiratory Rate 22 Blood Pressure Pulse Oximetry 95 96 100 Oxygen Delivery Method 06/04/25 12:39 06/04/25 12:41 06/04/25 13:00 Temperature 97.7 F Pulse Rate 63 Respiratory Rate 15 Blood Pressure 144/73 H 141/75 H 163/72 H Pulse Oximetry 95 Oxygen Delivery Method Room Air 06/04/25 13:00 06/04/25 13:30 06/04/25 13:30 Temperature Pulse Rate 66 64 Respiratory Rate 13 16 Blood Pressure 142/65 H Pulse Oximetry 96 96 Oxygen Delivery Method 06/04/25 14:00 06/04/25 14:00 06/04/25 14:30 Temperature Pulse Rate 64 Respiratory Rate 17 Blood Pressure 167/74 H 156/75 H Pulse Oximetry 98 Oxygen Delivery Method 06/04/25 14:30 Temperature Pulse Rate 63 Respiratory Rate 18 Blood Pressure Pulse Oximetry 96 Oxygen Delivery Method Room Air Oxygen Delivery Method Room Air Objective Labs 06/04/25 12:30 06/04/25 12:30 Labs: Laboratory Results - last 24 hr 06/04/25 06/04/25 06/04/25 12:29 12:30 14:17 WBC 7.0 RBC 4.05 Hgb 12.8 Hct 38.3 MCV 94.6 MCH 31.7 MCHC 33.5 RDW 14.1 Plt Count 235 Neut % (Auto) 57.6 Lymph % (Auto) 26.5 [place] % (Auto) 10.3 Eos % (Auto) 4.4 H Baso % (Auto) 1.2 Neut # (Auto) 4000 Lymph # (Auto) 1900 [place] # (Auto) 700 Eos # (Auto) 300 Baso # (Auto) 100 Sodium 141 Potassium 4.0 Chloride 105 Carbon Dioxide 30 BUN 25 H Creatinine 0.76 Estimated GFR > 60 BUN/Creatinine Ratio 32.9 H Glucose 91 POC Whole Bld Glucose 92 Calcium 9.6 Total Bilirubin 0.3 AST 23 ALT 8 Alkaline Phosphatase 53 Total Protein 6.9 Albumin 4.3 Globulin 2.6 Albumin/Globulin Ratio 1.7 Urine Color Yellow Urine Appearance Clear Urine pH 7.5 Ur Specific [place] 1.010 Urine Protein Negative Urine Glucose (UA) Negative Urine Ketones Negative Urine Occult Blood Negative Urine Nitrate Negative Urine Bilirubin Negative Urine Urobilinogen 0.2 Ur Leukocyte Esterase 1+ H Urine RBC None seen Urine WBC 1-5/hpf Ur Squamous Epith Cells 1-5 /hpf Urine Bacteria Few (2-10) H Ur Culture Indicated? Specimen cultured Vol Urine Centrifuged 10ml (spun) Assessment & Plan Time-Based Coding :: 35 min spent with patient and on the chart (including review of chart, obtaining history, exam, reviewing outside data, placing orders, documenting exam and treatment plan, and counseling patient) on 06/04. Quality MIPS - Admit I confirm the patient?s Advance Care Plan is present, Code status is documented, Surrogate decision maker is in patient?s record [If Yes, STOP here]: Yes MIPS - Meds 'Current medications' to include all prescriptions, [id number] products, herbals, cannabis/cannabidiol products, and vitamin/mineral/dietary (nutritional) supplements. I have utilized all available resources to obtain, update, or review the patient?s current medications. [If Yes, STOP here]: Yes
[2025-06-04] MEDS: MORPHINE 4 MG/ML INJ 2 MG IV (16:52)
[2025-06-04] MEDS: SODIUM CHLORIDE 0.9% 1,000 ML 100 ML IV (17:51)
--- NOTE | 2025-06-04 19:28 | PC.NURSE ---
Pt from ED via stretcher. A/O IVF hung as per orders. Pt & daughters oriented to room & call system. Pt requesting to rest at this time. Call light w/in reach, bed alarm on for pt safety. Continue w/ plan of care.
[2025-06-04] MEDS: PREGABALIN 25 MG CAPSULE PO (20:23)
[2025-06-04] MEDS: SENNOSIDES 8.6 MG TABLET 17.2 MG PO (20:24)
[2025-06-04] MEDS: BACLOFEN 10 MG TABLET PO (20:24)
[2025-06-05] MEDS: SODIUM CHLORIDE 0.9% 1,000 ML 100 ML IV (02:36)
[2025-06-05 05:36] LABS: Add Manual Diff / Slide Review NO; Hematocrit 31.7 % (36-46); Hemoglobin 10.7 g/dL (12.0-16.0); Lymphocytes Absolute Auto 2000 /uL (1100-4500); Mean Corpuscular HGB Conc 33.7 % (30-36); Mean Corpuscular Hemoglobin 32.0 PG (26-34); Mean Corpuscular Volume 95.1 fL (80-100); Platelet Count 195 X10^3/uL (150-400)
[2025-06-05 05:46] LABS: Blood Urea Nitrogen 19 mg/dL (7-17); Calcium 8.6 mg/dL (8.4-10.2); Carbon Dioxide 28 mmol/L (22-32); Chloride 108 mmol/L (98-107); Estimated Glomerular Filt Rate > 60 mL/min (>60); Glucose 89 mg/dL (70-99); HEMOLYSIS < 15 (0-50); Potassium 3.7 mmol/L (3.4-5.1); Sodium 138 mmol/L (137-145)
[2025-06-05 07:00] VITALS: BP 119/70; PULSE 65; RESP 18; TEMP 36.8; O2SAT 96
--- NOTE | 2025-06-05 08:06 | P.PN_ITS ---
Subjective Subjective Date Patient Seen: 06/05/25 Interval history: Chief complaint: Weakness unstable gait confusion with probable polypharmacy suspected undesired effects of Lyrica History of present illness: 05/04: 75-year-old female with a multi decade history of MS. 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 She was followed by the MS neurology Department at [facility] and also sees a pain doctor for spinal injections at [facility]. She was on a multitude of medications for chronic leg pain and leg spasms. She has been on baclofen for decades and in increase doses. She has a variety of antispasm medications including Flexeril, tizanidine, and diazepam. She was also on Lyrica. She was tried to avoid opiates over the years because she does not want to become addicted. Recently she has become somewhat confused and has increased leg weakness and leg spasms. Her daughters believe she has been confused and taking too many of her medications. Her leg spasms typically started in the right leg and then migrate to the left. The nature of her episodes is chronic and increasing over time. She was also followed by palliative care. The daughters note that she has rejected pain medications such as opiates. It sounds as though multiple practitioners are probably adjusted her medications independently of each other. She apparently was making nonsensical comments at dinner yesterday. She lives with a grandson his and their child. She was 2 daughters who live locally and brought her in today. She denies urinary or fecal incontinence. She can typically ambulate and drive a car as recently as a week to week and a half ago. Per physical therapy evaluation: Mobility and Gait In the past, pt has ambulated w/rollator walker in home , used poles when walking outside the house. Was able to dress although needed assist for socks. Prepared own meals and had cleaning help 1x/wk. Lately pt has had more difficulty. Has a R AFO but hasn't used it lately because she thought her leg would become too weak if she used it too much. In the last week has had more difficulty with everything and more mm spasms. On she seemed more confused w/mm spasms, Her daughters believe she is on too many medications. There particularly suspicious of Lyrica No fevers, chills, cough, dyspnea, or urinary symptoms. Hospital course: 05/05: Overnight patient has had much improved clarity alert oriented cogent. 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 In standing pt remains 2 min before mm spasms become severe Review of systems: No fever or chills rigors No chest pain shortness for breath abdominal pain No nausea vomiting diarrhea No urinary symptoms Physical exam: General alert oriented and appropriate HEENT unremarkable No labored respirations Abdomen nondistended Extremities no edema Objective imaging findings: RECENT IMAGING: Chest x-ray: No acute cardiopulmonary abnormality is seen. May 31 hip x-ray: No acute bony abnormality. December 31 LS spine MRI: T12-L1: Normal appearance. L1-L2: Disc desiccation, trace right facet effusion, ligamentum flavum hypertrophy. L2-L3: Disc desiccation, very mild broad-based disc bulge, ligamentum flavum hypertrophy, facet effusions and hypertrophy. L3-L4: Broad-based disc bulge, facet hypertrophy, ligamentum flavum hypertrophy, facet effusions causing moderate to severe spinal canal narrowing. There is suspected disc sequestration along the posterior aspect of L4, causing severe narrowing of the left subarticular recess. L4-L5: Facet hypertrophy, facet effusions, ligamentum flavum hypertrophy, broad-based disc bulge causing severe spinal canal narrowing and moderate left neural foraminal narrowing. L5-S1: Disc osteophyte complex, facet hypertrophy and effusions. Mild bilateral neural foraminal narrowing. IMPRESSION: Multilevel degenerative disc disease and facet arthrosis. Of note: Severe spinal canal narrowing at L4-5. Moderate to severe spinal canal narrowing at L3-4. Suspected disc sequestration posterior to the L4 vertebral body, severely narrowing the subarticular recess at this level on the left. There is nerve contact present. December 24 thoracic spine x-ray: Moderate multilevel degenerative change at consecutive levels of the thoracic spine and chronic appearing anterior T10 and T11 wedging deformities without evidence of acute osseous abnormality. Assessment and plan: 1. Chronic MS and severe lumbar spinal stenosis with increased pain and leg spasms and weakness recently. * Appreciate physical therapy evaluation * Diazepam as needed for severe spasms * 2. Polypharmacy with probable confusion regarding recent medications including Lyrica, Effexor, diazepam, baclofen, tizanidine, and Sinemet. * Lyrica reduced to 25 mg t.i.d. * Valium reduced to 2 mg b.i.d. as needed * Baclofen 10 mg t.i.d. * Effexor continued * Sinemet, Flexeril, tizanidine, were held DVT prophylaxis: * SCDs Code status: DNR, Disposition: * Observation status may convert to inpatient depending on length of stay Time based billing: * 35 minutes were involved in the evaluation of this patient including [id number] evaluation review of records review of orders previous prescriptions discussion with patient and family care team and discharge planning team Exam Vital Signs (past 8 hours): - 06/05/25 07:00 Temperature 98.3 F Pulse Rate 65 Respiratory Rate 18 Blood Pressure 119/70 Pulse Oximetry 96 Oxygen Delivery Method Room Air Oxygen Flow Rate 0 Objective Labs 06/05/25 05:14 06/05/25 05:14 Labs: Laboratory Results - last 24 hr 06/04/25 06/04/25 06/04/25 12:29 12:30 14:17 WBC 7.0 RBC 4.05 Hgb 12.8 Hct 38.3 MCV 94.6 MCH 31.7 MCHC 33.5 RDW 14.1 Plt Count 235 Neut % (Auto) 57.6 Lymph % (Auto) 26.5 [place] % (Auto) 10.3 Eos % (Auto) 4.4 H Baso % (Auto) 1.2 Neut # (Auto) 4000 Lymph # (Auto) 1900 [place] # (Auto) 700 Eos # (Auto) 300 Baso # (Auto) 100 Sodium 141 Potassium 4.0 Chloride 105 Carbon Dioxide 30 BUN 25 H Creatinine 0.76 Estimated GFR > 60 BUN/Creatinine Ratio 32.9 H Glucose 91 POC Whole Bld Glucose 92 Calcium 9.6 Total Bilirubin 0.3 AST 23 ALT 8 Alkaline Phosphatase 53 Total Protein 6.9 Albumin 4.3 Globulin 2.6 Albumin/Globulin Ratio 1.7 Urine Color Yellow Urine Appearance Clear Urine pH 7.5 Ur Specific [place] 1.010 Urine Protein Negative Urine Glucose (UA) Negative Urine Ketones Negative Urine Occult Blood Negative Urine Nitrate Negative Urine Bilirubin Negative Urine Urobilinogen 0.2 Ur Leukocyte Esterase 1+ H Urine RBC None seen Urine WBC 1-5/hpf Ur Squamous Epith Cells 1-5 /hpf Urine Bacteria Few (2-10) H Ur Culture Indicated? Specimen cultured Vol Urine Centrifuged 10ml (spun) 06/05/25 05:14 WBC 6.0 RBC 3.34 L Hgb 10.7 L Hct 31.7 L MCV 95.1 MCH 32.0 MCHC 33.7 RDW 14.1 Plt Count 195 Neut % (Auto) 52.6 Lymph % (Auto) 33.9 [place] % (Auto) 8.8 Eos % (Auto) 4.1 H Baso % (Auto) 0.6 Neut # (Auto) 3200 Lymph # (Auto) 2000 [place] # (Auto) 500 Eos # (Auto) 200 Baso # (Auto) 0 Sodium 138 Potassium 3.7 Chloride 108 H Carbon Dioxide 28 BUN 19 H Creatinine 0.62 Estimated GFR > 60 BUN/Creatinine Ratio 30.6 H Glucose 89 POC Whole Bld Glucose Calcium 8.6 Total Bilirubin AST ALT Alkaline Phosphatase Total Protein Albumin Globulin Albumin/Globulin Ratio Urine Color Urine Appearance Urine pH Ur Specific [place] Urine Protein Urine Glucose (UA) Urine Ketones Urine Occult Blood Urine Nitrate Urine Bilirubin Urine Urobilinogen Ur Leukocyte Esterase Urine RBC Urine WBC Ur Squamous Epith Cells Urine Bacteria Ur Culture Indicated? 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 Contact dermatitis Balance problem Right leg weakness Purple toe syndrome of right foot Swelling of right foot Vaginal discharge, bloody Right foot pain Onychomycosis Constipation Tremor of both hands Osteoporosis (~1999) Osteopenia (~1999) Gout (~1998) Mumps Chicken pox Hearing loss (~2008) Cataracts, bilateral (~2007) Herpes (~1989) Fibroids (~1992) Multiple sclerosis Surgical History Anesthesia History of hysterectomy (~1992) History of hernia repair (~2004) History of breast augmentation History of carpal tunnel release (~1984) Family History Father History of heart disease Hyperlipidemia Mother Liver disease Brother Parkinson's disease Grandfather Cancer Grandmother Cancer Social History household members: family and children Smoking Status: Former smoker alcohol intake: former Assessment & Plan Time-Based Coding :: [TOTAL MINUTES] spent with patient and on the chart (including review of chart, obtaining history, exam, reviewing outside data, placing orders, documenting exam and treatment plan, and counseling patient) on [DATE]. Quality VTE Deep Vein Thrombosis/Pulmonary Embolism Present on Admission: No
[2025-06-05] MEDS: PREGABALIN 25 MG CAPSULE PO ×3 (09:27→20:31)
[2025-06-05] MEDS: BACLOFEN 10 MG TABLET PO ×3 (09:27→20:31)
[2025-06-05] MEDS: VENLAFAXINE ER 75 MG CAP PO (09:27)
--- NOTE | 2025-06-05 12:31 | PT.IIE ---
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 Back pain Balance problem Bilateral leg pain Cataracts, bilateral (~2007) Change in stool Chicken pox Chronic right hip pain Constipation Contact dermatitis Counseling regarding end of life decision making 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 Fibroids (~1992) Gout (~1998) Hearing loss (~2008) Herpes (~1989) Leg cramps, sleep related Multiple sclerosis Mumps Onychomycosis Osteopenia (~1999) Osteoporosis (~1999) Pelvic somatic dysfunction Purple toe syndrome of right foot Right foot pain Right leg weakness Sacral region somatic dysfunction Somatic dysfunction of lower extremity Stiffness of joint of right pelvic region and thigh Swelling of right foot Tremor of both hands Urinary frequency Vaginal discharge, bloody Physical Therapy Inpatient Evaluation/Re-Eval M1 PT IP Prior Functional Status Start: 06/05/25 12:18 Freq: NEEDED Status: Active Protocol: Document 06/05/25 12:19 KJ (Rec: 06/05/25 12:30 KJ [id number]) Medical Review Prior Functional Status Medical History Yes Reviewed Mobility and Gait In the past, pt has ambulated w/rollator walker in home , used poles when walking outside the house. Was able to dress although needed assist for socks. Prepared own meals and had cleaning help 1x/wk. Lately pt has had more difficulty. Has a R AFO but hasn't used it lately because she thought her leg would become too weak if she used it too much. In the last week has had more difficulty with everything and more mm spasms. On she seemed more confused w/mm spasms, family tried giving her a warm bath but then couldn't get her out of the tub. Activities of Daily As above, has needed more assistance w/ADLs in past Living and IADL's week. Social History Household Members family,children Living Arrangements House Number of Stairs To 2 from garage into house. Rails available. Enter/Railing? Home Environment Tub/Shower Home Equipment Shower Seat without Backrest,Grab Bars In Shower Additional Social Lives w/grandaughter and her and 10 month old. History Comment Cathi does not work outside the home but is busy with baby. M2 PT-IP Current Condition Start: 06/05/25 12:18 Freq: NEEDED Status: Active Protocol: Document 06/05/25 12:19 KJ (Rec: 06/05/25 12:30 KJ [id number]) Physical Therapy Current Condition Current Condition Evaluation Date 06/05/25 Treatment Diagnosis impaired mobility M3 PT-IP Subjective Start: 06/05/25 12:18 Freq: NEEDED Status: Active Protocol: Document 06/05/25 12:19 KJ (Rec: 06/05/25 12:30 KJ [id number]) Subjective Physical Therapy Visit Type Type Initial Evaluation Visit Start Time 11:32 Visit Stop Time 12:02 Physical Therapy Visit Comments Patient Comments Pain comes w/mm spasms. Can stand only a short time because the mm spasms start. Patient Goals To feel better Therapy Pain Assessment Pain When Pain Assessed At Rest Pain Present Pain Present Pain Reported Location legs Description Cramping Pain Behaviors Facial Grimacing Pain Management Modification of Treatment,Re-positioning Techniques M4 PT-IP Mobility and Gait Start: 06/05/25 12:18 Freq: NEEDED Status: Active Protocol: Document 06/05/25 12:19 KJ (Rec: 06/05/25 12:30 KJ [id number]) PT-Transfer Assessment Sit to and From Stand Sit to and from Minimal Assistance Stand Equipment Transfer Assistive Gait Belt,Front Wheeled Walker Device Orthotic/Prosthetic No Devices or Brace: Comments Mobility Comments Requires assist to stand. In standing pt remains 2 min before mm spasms become severe PT-Balance Assessment Sitting Balance and Reactions Static Sitting Normal Balance Ability Dynamic Sitting Normal Balance Ability Standing Balance and Reactions Static Standing Good Balance Ability Dynamic Standing Poor Balance Ability M5 PT-IP Objective Assessments Start: 06/05/25 12:18 Freq: NEEDED Status: Active Protocol: Document 06/05/25 12:19 KJ (Rec: 06/05/25 12:30 KJ [id number]) Orientation Orientation/Cognition Level of Alertness Alert Orientation Name,Age,Birthday,Month,Date,Year,Day of Week,Place, Situation Gross Range of Motion Upper Extremity ROM Assessment Within Functional Limits Lower Extremity ROM Assessment Right Impaired Impairments R ankle supinated. PROM lacks full dorsiflex. AROM is minimal Strength Upper Extremity Strength Assessment Within Functional Limits Lower Extremity Strength Assessment Right Impaired Knee ext 3-/5 Ankle 0 Coordination Assessment Gross Coordination Gross Coordination Impaired M6 PT-IP Treatment Start: 06/05/25 12:18 Freq: NEEDED Status: Active Protocol: Document 06/05/25 12:19 KJ (Rec: 06/05/25 12:30 KJ [id number]) Physical Therapy Treatment Education Education Provided Safety Other Treatments Other Treatment Instructed pt and 2 daughters in safety during mobility Performed . M7 PT-IP Assessment and Plan Start: 06/05/25 12:18 Freq: NEEDED Status: Active Protocol: Document 06/05/25 12:19 KJ (Rec: 06/05/25 12:30 KJ [id number]) PT Summary Assessment and Plan Potential Rehabilitation Good Potential Status of Condition Evolving at Evaluation Summary Impairments ROM,Strength,Balance,Transfers,Gait,Activity Tolerance Assessment Summary MM spasms impair functional ability. Goals Bed Mobility Goal Contact Guard Assistance Transfer Goal Contact Guard Assistance Gait Goal Contact Guard Assistance Gait Distance 10 Days to Meet Goals 5 Treatment Plan Physical Therapy Bed Mobility Training,Transfer Training,Gait Training, Treatment Plan Therapeutic Exercise Other transfers, progress to ambulation if able Recommendations and Next Treatment Focus Recommendations To Nursing Amount of Assist 2 Person Assist Needed Discharge Recommendations Other Discharge DC recommendations are pending progress medically. Pt Recommendations appears to have some help available (1 daughter lives in [place]) Transportation Needs Wheelchair/Cabulance at Discharge
--- NOTE | 2025-06-05 14:19 | CM.DANOTE ---
Patient is a 75 yo female who was admitted INPT Status on 06/04/25 for Weakness/MS flare. Pt has [facility] and [employer] for insurance and her PCP is Dr. Oakley at [facility]. EMR was reviewed. Per MD, pt with hx of MS and likely had polypharmacy interaction and admitted with AMS and spasms from MS. Pt's POLST shows Comfort Measures. Per PT, pt was limited today due to spasms and pending her progress SNF vs HH. SW met bedside with pt and Dtr/POA Juanita and explained role and they confirm that pt lives at home in [place] with grandson and his family and has two local Dtrs/POAs Mira and Juanita. Pt confirms she typically is independent with ADLs at baseline, family provides transport and she goes to outpt PT and has OT that comes to the house covered by insurance (but not HH). Pt denies any hx of HH or SNF herself but states her was at SNF initially as rehab but transitioned to senior care care before he . SW explained the coverage and services for both SNF and HH and pt states her preference would be home with family support and HH and maybe hiring a private pay caregiver but also willing to consider SNF and see how she progresses with PT/OT. Provided the SNF and HH Choice list to review. Both Dtrs and pt will discuss further and determine their preferred discharge plan tomorrow of HH vs SNF. SW to also provide the Senior Resource Guidebook prior to d/c and PP CG list. MANUEL Villanueva Discharge Planning/Care Management CM Discharge Assessment Start: 06/04/25 17:46 Freq: Status: Active Protocol: Document 06/05/25 14:16 BF (Rec: 06/05/25 14:19 BF [id number]) Discharge Planning Assessment Assigned Discharge MANUEL Metcalf Supervisor [facility] Provider Dr. Brooks Oakley Insurance Medicare DPOA/Assigned Dtr Mira and Dtr Juanita Designee Name Contact Information [phone] Advance Directives? Yes: POLST Advance Directives Yes on File History Provided By Patient,Family Member,Medical Record Has Patient been No admitted in last 30 days? Prior Living House Arrangements Household Members family,children Comment Lives at home with grandson and family Type of Relies on Others transporation used prior to admit Independent with ADL Yes: mostly 's Is patient alert and Yes oriented? Needs Assistance Managing Medications,Home Chores / Shopping With Caregiver for No Another Community Services Physical Therapy,Occupational Therapy used prior to admission: DME Already Rented / Wheelchair,FWW / Walker Owned Patient/Family Penitentiary Facility,Home with Home Health Preference Comment SNF vs HH pending progress Barriers to No Discharge Discharge Plan Home with Home Health Community Services Physical Therapy,Occupational Therapy,Home Health Aid, Home Health Nurse Transportation If home, then one of her Dtrs will transport Arrangement Additional Comment Pending further PT to determine HH vs SNF and ongoing family discussion Medicare Choice List Yes Provided Medicare choice list patient,family reviewed on electronic tablet with SNF/HH Preference reviewing Whiteboard Updated Yes in Patient Room with name and ext. # of Senior Windows Engineer Review Status In Process Please Provide Date 06/05/25 Initial DC Assessment Was Performed Next Review Type Continued Stay Review
--- NOTE | 2025-06-05 17:49 | PC.NURSE ---
Pt A/O, denies discomfort Sat in chair part of day. SL intact/patent. States she is feeling better., Call light w/in reach, bed alarm on for pt safety,. Continue w/plan of care,
[2025-06-05 20:00] VITALS: BP 127/64; PULSE 69; RESP 16; TEMP 36.8; O2SAT 98
[2025-06-05] MEDS: SENNOSIDES 8.6 MG TABLET 17.2 MG PO (20:31)
[2025-06-05] MEDS: SODIUM CHLORIDE 0.9% FLUSH 10 ML IV (20:32)
[2025-06-06 05:29] LABS: Add Manual Diff / Slide Review NO; Hematocrit 33.2 % (36-46); Hemoglobin 11.3 g/dL (12.0-16.0); Lymphocytes Absolute Auto 2100 /uL (1100-4500); Mean Corpuscular HGB Conc 33.9 % (30-36); Mean Corpuscular Hemoglobin 31.9 PG (26-34); Mean Corpuscular Volume 94.1 fL (80-100); Platelet Count 210 X10^3/uL (150-400)
[2025-06-06 05:37] LABS: Blood Urea Nitrogen 19 mg/dL (7-17); Calcium 8.8 mg/dL (8.4-10.2); Carbon Dioxide 28 mmol/L (22-32); Chloride 106 mmol/L (98-107); Estimated Glomerular Filt Rate > 60 mL/min (>60); Glucose 89 mg/dL (70-99); Potassium 3.7 mmol/L (3.4-5.1); Sodium 137 mmol/L (137-145)
[2025-06-06 05:41] LABS: HEMOLYSIS 61 (0-50)
[2025-06-06 07:00] VITALS: BP 130/80; PULSE 64; RESP 18; TEMP 36.7; O2SAT 96
[2025-06-06] MEDS: VENLAFAXINE ER 75 MG CAP PO (08:15)
[2025-06-06] MEDS: BACLOFEN 10 MG TABLET PO ×3 (08:15→20:21)
[2025-06-06] MEDS: PREGABALIN 25 MG CAPSULE PO ×3 (08:15→20:21)
[2025-06-06] MEDS: SODIUM CHLORIDE 0.9% FLUSH 10 ML IV ×2 (08:17→20:22)
--- NOTE | 2025-06-06 10:36 | PT.IPTN ---
Physical Therapy Treatment Note M2 PT-IP Current Condition Start: 06/05/25 12:18 Freq: NEEDED Status: Active Protocol: Document 06/05/25 12:19 KJ (Rec: 06/05/25 12:30 KJ [id number]) Physical Therapy Current Condition Current Condition Evaluation Date 06/05/25 Treatment Diagnosis impaired mobility M3 PT-IP Subjective Start: 06/05/25 12:18 Freq: NEEDED Status: Active Protocol: Document 06/06/25 10:24 AM[facility] (Rec: 06/06/25 10:36 [facility] [id number]) Subjective Physical Therapy Visit Type Type Treatment Note Visit Start Time 09:55 Visit Stop Time 10:20 Physical Therapy Visit Comments Patient Comments pt is sitting up in chair, notes she is doing better today and would like to walk with PT Her daughters are both present today and report they are trying to figure out if she should have SNF rehab for a bit and then home health or if she should just have home health Therapy Pain Assessment Pain When Pain Assessed After Treatment Pain Present Pain Present Pain Reported Location legs Description Cramping Pain Behaviors Facial Grimacing Pain Management Re-positioning Techniques M4 PT-IP Mobility and Gait Start: 06/05/25 12:18 Freq: NEEDED Status: Active Protocol: Document 06/06/25 10:24 AM[facility] (Rec: 06/06/25 10:36 [facility] [id number]) PT-Transfer Assessment Sit to and From Stand Sit to and from Contact Guard Assistance Stand Equipment Transfer Assistive Gait Belt,Front Wheeled Walker Device Orthotic/Prosthetic No Devices or Brace: Comments Mobility Comments Pt was CGA today to stand and did not experience spasms with standing, she stood x 2 min with fww while a gown was placed around her Gait Assessment Gait Gait Assistance Contact Guard Assist Required: Distance (Feet) 250 Able to Maintain Yes Weight Bearing Status During Gait Assistive Devices Assistive Device Gait Belt,Front Wheeled Walker Factors Limiting Gait Function Factors Limiting Pain Gait Function Comments Gait Comments pt was very determined to walk today and initially no pain noted, she wished to walk around the [facility] and did very well. Towards the end as we got close to her room she started noting that her Calf muscles were starting to cramp. Once sitting she experienced cramping in her calf and hamstring muscles B. She was repositioned and within a few minutes the cramping stopped. PT-Balance Assessment Sitting Balance and Reactions Static Sitting Normal Balance Ability Dynamic Sitting Normal Balance Ability Standing Balance and Reactions Static Standing Good Balance Ability Dynamic Standing Fair Balance Ability M5 PT-IP Objective Assessments Start: 06/05/25 12:18 Freq: NEEDED Status: Active Protocol: Document 06/06/25 10:24 [facility] (Rec: 06/06/25 10:36 [facility] [id number]) Orientation Orientation/Cognition Level of Alertness Alert Orientation Name,Age,Birthday,Month,Date,Year,Day of Week,Place, Situation Gross Range of Motion Lower Extremity ROM Assessment Right Impaired Impairments R ankle supinated. PROM lacks full dorsiflex. AROM is minimal Strength Upper Extremity Strength Assessment Within Functional Limits Lower Extremity Strength Assessment Right Impaired Knee ext 3-/5 Ankle 0 Coordination Assessment Gross Coordination Gross Coordination Impaired M6 PT-IP Treatment Start: 06/05/25 12:18 Freq: NEEDED Status: Active Protocol: Document 06/06/25 10:24 [facility] (Rec: 06/06/25 10:36 [facility] [id number]) Physical Therapy Treatment Education Education Provided Safety M7 PT-IP Assessment and Plan Start: 06/05/25 12:18 Freq: NEEDED Status: Active Protocol: Document 06/06/25 10:24 [facility] (Rec: 06/06/25 10:36 [facility] [id number]) PT Summary Assessment and Plan Potential Rehabilitation Good Potential Status of Condition Evolving at Evaluation Summary Impairments ROM,Strength,Balance,Transfers,Gait,Activity Tolerance Assessment Summary Pt tolerating much more today and did not experience spasms until the end of her walk. The spasms did seem to quiet down after a few minutes of her resting in the chair after walking. Pt does note she tries to push her self and is not sure if she pushes too hard at home. She would benefit from guidance on energy conservation at home with home health PT. She does feel that short term SNF rehab may be beneficial for her as well Goals Bed Mobility Goal Contact Guard Assistance Transfer Goal Contact Guard Assistance Gait Goal Contact Guard Assistance Gait Distance 10 Days to Meet Goals 5 Frequency of Treatment Frequency Of Once a Day Treatment Treatment Plan Physical Therapy Bed Mobility Training,Transfer Training,Gait Training, Treatment Plan Therapeutic Exercise Other continue to work on progressive ambulation Recommendations and Next Treatment Focus Recommendations To Nursing Amount of Assist 1 Person Assist Needed Discharge Recommendations Other Discharge DC recommendations are pending progress medically. Pt Recommendations appears to have some help available (1 daughter lives in [place]) Transportation Needs Wheelchair/Cabulance at Discharge
--- NOTE | 2025-06-06 11:04 | CM.DPC ---
Addendum entered by MANUEL Villanueva 06/06/25 15:25: ADD: Per [facility], would need confirmation that pt is actually Inpt Status and dx of metabolic encephalopathy due to polypharmacy and resolving not fully resolved. Could not have pain injections from [facility] while at SNF. Per [facility], no SOC until 06/14. No response from [facility] yet. [facility] has SOC 06/08 and 06/09 and made referral to [facility] in case pt able to d/c home. would still need F2F. BF Original Note: DCP SNF vs HH planning: Per MD, pt making some progress but not yet stable for discharge today yet and to work further with PT/OT and continue to adjust her medications. MD and family aware of likely discharge tomorrow Mon 06/07. Per PT, pt able to ambulate with FWW but requiring some assist and SNF vs HH recommending pending progress. GINGER met bedside with pt and her two Dtrs/POAs Milly and discussed again the coverage and services for HH vs SNF. They are on the fence between HH vs SNF and agreeable with making plan A) home with HH B) SNF. After reviewing SNF and HH Choice list, preference for HH is any that can start the soonest and for SNF [facility] due to location. Made [facility] referral to determine if they can accept tomorrow if SNF needed. Medicare eligible for SNF tomorrow. PASRR needed if SNF. GINGER sent email to Alireza Fleming, Francoise [facility]ADSWOR[facility] to determine soonest availability. F2F needed if home. MANUEL Villanueva
--- NOTE | 2025-06-06 17:48 | P.PN_ITS ---
Subjective Subjective Date Patient Seen: 06/06/25 Interval history: Chief complaint: Weakness unstable gait confusion with probable polypharmacy suspected undesired effects of Lyrica History of present illness: 05/04: 75-year-old female with a multi decade history of MS. 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 She was followed by the MS neurology Department at [facility] and also sees a pain doctor for spinal injections at [facility]. She was on a multitude of medications for chronic leg pain and leg spasms. She has been on baclofen for decades and in increase doses. She has a variety of antispasm medications including Flexeril, tizanidine, and diazepam. She was also on Lyrica. She was tried to avoid opiates over the years because she does not want to become addicted. Recently she has become somewhat confused and has increased leg weakness and leg spasms. Her daughters believe she has been confused and taking too many of her medications. Her leg spasms typically started in the right leg and then migrate to the left. The nature of her episodes is chronic and increasing over time. She was also followed by palliative care. The daughters note that she has rejected pain medications such as opiates. It sounds as though multiple practitioners are probably adjusted her medications independently of each other. She apparently was making nonsensical comments at dinner yesterday. She lives with a grandson his and their child. She was 2 daughters who live locally and brought her in today. She denies urinary or fecal incontinence. She can typically ambulate and drive a car as recently as a week to week and a half ago. Per physical therapy evaluation: Mobility and Gait In the past, pt has ambulated w/rollator walker in home , used poles when walking outside the house. Was able to dress although needed assist for socks. Prepared own meals and had cleaning help 1x/wk. Lately pt has had more difficulty. Has a R AFO but hasn't used it lately because she thought her leg would become too weak if she used it too much. In the last week has had more difficulty with everything and more mm spasms. On she seemed more confused w/mm spasms, Her daughters believe she is on too many medications. There particularly suspicious of Lyrica No fevers, chills, cough, dyspnea, or urinary symptoms. Hospital course: 05/05: Overnight patient has had much improved clarity alert oriented cogent. 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 In standing pt remains 2 min before mm spasms become severe 05/06: Mentation is much more cogent today is ambulating up and down the hallways with physical therapy using a walker leg spasms are less severe Review of systems: No fever or chills rigors No chest pain shortness for breath abdominal pain No nausea vomiting diarrhea No urinary symptoms Physical exam: General alert oriented and appropriate HEENT unremarkable No labored respirations Abdomen nondistended Extremities no edema Objective imaging findings: RECENT IMAGING: Chest x-ray: No acute cardiopulmonary abnormality is seen. May 31 hip x-ray: No acute bony abnormality. December 31 LS spine MRI: T12-L1: Normal appearance. L1-L2: Disc desiccation, trace right facet effusion, ligamentum flavum hypertrophy. L2-L3: Disc desiccation, very mild broad-based disc bulge, ligamentum flavum hypertrophy, facet effusions and hypertrophy. L3-L4: Broad-based disc bulge, facet hypertrophy, ligamentum flavum hypertrophy, facet effusions causing moderate to severe spinal canal narrowing. There is suspected disc sequestration along the posterior aspect of L4, causing severe narrowing of the left subarticular recess. L4-L5: Facet hypertrophy, facet effusions, ligamentum flavum hypertrophy, broad-based disc bulge causing severe spinal canal narrowing and moderate left neural foraminal narrowing. L5-S1: Disc osteophyte complex, facet hypertrophy and effusions. Mild bilateral neural foraminal narrowing. IMPRESSION: Multilevel degenerative disc disease and facet arthrosis. Of note: Severe spinal canal narrowing at L4-5. Moderate to severe spinal canal narrowing at L3-4. Suspected disc sequestration posterior to the L4 vertebral body, severely narrowing the subarticular recess at this level on the left. There is nerve contact present. December 24 thoracic spine x-ray: Moderate multilevel degenerative change at consecutive levels of the thoracic spine and chronic appearing anterior T10 and T11 wedging deformities without evidence of acute osseous abnormality. Assessment and plan: 1. Chronic MS and severe lumbar spinal stenosis with increased pain and leg spasms and weakness recently. * Appreciate physical therapy evaluation * Diazepam as needed for severe spasms * There does not seem to be a flare at this time 2. Polypharmacy with probable confusion regarding recent medications including Lyrica, Effexor, diazepam, baclofen, tizanidine, and Sinemet. Suspect that Sinemet is culprit * Lyrica reduced to 25 mg t.i.d. * Valium reduced to 2 mg b.i.d. as needed * Baclofen 10 mg t.i.d. * Effexor continued * Sinemet, Flexeril, tizanidine, were held DVT prophylaxis: * SCDs Code status: DNR, Disposition: * Observation status may convert to inpatient depending on length of stay Time based billing: * 35 minutes were involved in the evaluation of this patient including [id number] evaluation review of records review of orders previous prescriptions discussion with patient and family care team and discharge planning team Exam Vital Signs (past 8 hours): Oxygen Delivery Method Room Air Oxygen Flow Rate 0 Objective Labs 06/06/25 04:59 06/06/25 04:59 Labs: Laboratory Results - last 24 hr 06/06/25 04:59 WBC 5.9 RBC 3.53 L Hgb 11.3 L Hct 33.2 L MCV 94.1 MCH 31.9 MCHC 33.9 RDW 14.1 Plt Count 210 Neut % (Auto) 47.7 L Lymph % (Auto) 35.7 [place] % (Auto) 10.9 Eos % (Auto) 5.0 H Baso % (Auto) 0.7 Neut # (Auto) 2800 Lymph # (Auto) 2100 [place] # (Auto) 600 Eos # (Auto) 300 Baso # (Auto) 0 Sodium 137 Potassium 3.7 Chloride 106 Carbon Dioxide 28 BUN 19 H Creatinine 0.59 Estimated GFR > 60 BUN/Creatinine Ratio 32.2 H Glucose 89 Calcium 8.8 PFSH Medical History Back pain Arm laceration Somatic dysfunction of lower extremity Stiffness of joint of right pelvic region and thigh Change in stool Pelvic somatic dysfunction Sacral region somatic dysfunction Bilateral leg pain Chronic right hip pain 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 Leg cramps, sleep related Counseling regarding end of life decision making Urinary frequency 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 Contact dermatitis Balance problem Right leg weakness Purple toe syndrome of right foot Swelling of right foot Vaginal discharge, bloody Right foot pain Onychomycosis Constipation Tremor of both hands Osteoporosis (~1999) Osteopenia (~1999) Gout (~1998) Mumps Chicken pox Hearing loss (~2008) Cataracts, bilateral (~2007) Herpes (~1989) Fibroids (~1992) Multiple sclerosis Surgical History Anesthesia History of hysterectomy (~1992) History of hernia repair (~2004) History of breast augmentation History of carpal tunnel release (~1984) Family History Father History of heart disease Hyperlipidemia Mother Liver disease Brother Parkinson's disease Grandfather Cancer Grandmother Cancer Social History household members: family and children Smoking Status: Former smoker alcohol intake: former Assessment & Plan Time-Based Coding :: [TOTAL MINUTES] spent with patient and on the chart (including review of chart, obtaining history, exam, reviewing outside data, placing orders, documenting exam and treatment plan, and counseling patient) on [DATE]. Quality VTE Deep Vein Thrombosis/Pulmonary Embolism Present on Admission: No
[2025-06-06 20:00] VITALS: BP 139/76; PULSE 68; RESP 16; TEMP 36.9; O2SAT 98
[2025-06-06] MEDS: ACETAMINOPHEN 325 MG TABLET 650 MG PO (20:20)
[2025-06-06] MEDS: SENNOSIDES 8.6 MG TABLET 17.2 MG PO (20:21)
[2025-06-07 07:00] VITALS: BP 129/76; PULSE 78; RESP 17; TEMP 36.8; O2SAT 97
--- NOTE | 2025-06-07 08:38 | PM.DS.1 ---
History of Present Illness History of Present Illness Date Patient Seen: 06/07/25 Chief complaint: Toxic encephalopathy secondary to polypharmacy Narrative: Chief complaint: Weakness unstable gait confusion with probable polypharmacy suspected undesired effects of Lyrica History of present illness: 05/04: 75-year-old female with a multi decade history of MS. 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 She was followed by the MS neurology Department at [facility] and also sees a pain doctor for spinal injections at [facility]. She was on a multitude of medications for chronic leg pain and leg spasms. She has been on baclofen for decades and in increase doses. She has a variety of antispasm medications including Flexeril, tizanidine, and diazepam. She was also on Lyrica. She was tried to avoid opiates over the years because she does not want to become addicted. Recently she has become somewhat confused and has increased leg weakness and leg spasms. Her daughters believe she has been confused and taking too many of her medications. Her leg spasms typically started in the right leg and then migrate to the left. The nature of her episodes is chronic and increasing over time. She was also followed by palliative care. The daughters note that she has rejected pain medications such as opiates. It sounds as though multiple practitioners are probably adjusted her medications independently of each other. She apparently was making nonsensical comments at dinner yesterday. She lives with a grandson his and their child. She was 2 daughters who live locally and brought her in today. She denies urinary or fecal incontinence. She can typically ambulate and drive a car as recently as a week to week and a half ago. Per physical therapy evaluation: Mobility and Gait In the past, pt has ambulated w/rollator walker in home , used poles when walking outside the house. Was able to dress although needed assist for socks. Prepared own meals and had cleaning help 1x/wk. Lately pt has had more difficulty. Has a R AFO but hasn't used it lately because she thought her leg would become too weak if she used it too much. In the last week has had more difficulty with everything and more mm spasms. On she seemed more confused w/mm spasms, Her daughters believe she is on too many medications. There particularly suspicious of Lyrica No fevers, chills, cough, dyspnea, or urinary symptoms. Hospital course: 05/05: Overnight patient has had much improved clarity alert oriented cogent. 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 In standing pt remains 2 min before mm spasms become severe 05/06: Mentation is much more cogent today is ambulating up and down the hallways with physical therapy using a walker leg spasms are less severe 06/07: Patient doing quite well with good recovery discharge to home with home health Review of systems: No fever or chills rigors No chest pain shortness for breath abdominal pain No nausea vomiting diarrhea No urinary symptoms Physical exam: General alert oriented and appropriate HEENT unremarkable No labored respirations Abdomen nondistended Extremities no edema Objective imaging findings: RECENT IMAGING: Chest x-ray: No acute cardiopulmonary abnormality is seen. May 31 hip x-ray: No acute bony abnormality. December 31 LS spine MRI: T12-L1: Normal appearance. L1-L2: Disc desiccation, trace right facet effusion, ligamentum flavum hypertrophy. L2-L3: Disc desiccation, very mild broad-based disc bulge, ligamentum flavum hypertrophy, facet effusions and hypertrophy. L3-L4: Broad-based disc bulge, facet hypertrophy, ligamentum flavum hypertrophy, facet effusions causing moderate to severe spinal canal narrowing. There is suspected disc sequestration along the posterior aspect of L4, causing severe narrowing of the left subarticular recess. L4-L5: Facet hypertrophy, facet effusions, ligamentum flavum hypertrophy, broad-based disc bulge causing severe spinal canal narrowing and moderate left neural foraminal narrowing. L5-S1: Disc osteophyte complex, facet hypertrophy and effusions. Mild bilateral neural foraminal narrowing. IMPRESSION: Multilevel degenerative disc disease and facet arthrosis. Of note: Severe spinal canal narrowing at L4-5. Moderate to severe spinal canal narrowing at L3-4. Suspected disc sequestration posterior to the L4 vertebral body, severely narrowing the subarticular recess at this level on the left. There is nerve contact present. December 24 thoracic spine x-ray: Moderate multilevel degenerative change at consecutive levels of the thoracic spine and chronic appearing anterior T10 and T11 wedging deformities without evidence of acute osseous abnormality. Assessment and plan: 1. Chronic MS and severe lumbar spinal stenosis with increased pain and leg spasms and weakness recently. Appreciate physical therapy evaluation Diazepam as needed for severe spasms There does not seem to be a flare at this time 2. Polypharmacy with probable confusion regarding recent medications including Lyrica, Effexor, diazepam, baclofen, tizanidine, and Sinemet. Suspect that Sinemet is culprit Lyrica continue 25 mg t.i.d. Valium continue 2 mg b.i.d. as needed Baclofen reduced to 10 mg t.i.d. from 30 t.i.d. Effexor continued Sinemet, Flexeril, tizanidine, were held DVT prophylaxis: SCDs Code status: DNR, Disposition social work evaluation: Home with home health MANUEL Villanueva Initialized on 06/06/25 Time based billin minutes were involved in the evaluation of this patient including [id number] evaluation review of records review of orders previous prescriptions discussion with patient and family care team and discharge planning team Discharge Providers Provider Date of admission: 06/04/25 16:39 Discharge Date: 06/07/25 Primary care physician: Kaleb Oakley DO Consults: 06/04/25 14:43 Consult to [facility] [place] - Biogeographer Stat Comment: Biogeographer Consult needed for:: Unable to care for self Comment: Staying with daughter at the moment, weakness, has concerns for needing further care 06/04/25 18:16 Consult to Occupational Therapy Evaluate & Treat Comment: Physician Instructions: Evaluate and treat Consult to Physical Therapy Evaluate & Treat Comment: Physician Instructions: Evaluate and Treat 06/06/25 10:29 Consult to Pharmacy Routine Comment: fall risk 06/07/25 07:52 Consult to Home Health Routine Comment: MS, metabolic encephalopathy from polypharmacy int Reason For Exam: Set up HH RN/PT/OT/COMMUNITY REINVESTMENT ACT OFFICER for dc to home when stable Discharge provider: Reagan Spears MD Exam Vital Signs (past 8 hours): Oxygen Delivery Method Room Air Oxygen Flow Rate 0 Objective Labs 06/06/25 04:59 06/06/25 04:59 [facility] Medical History Back pain Arm laceration Somatic dysfunction of lower extremity Stiffness of joint of right pelvic region and thigh Change in stool Pelvic somatic dysfunction Sacral region somatic dysfunction Bilateral leg pain Chronic right hip pain 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 Leg cramps, sleep related Counseling regarding end of life decision making Urinary frequency 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 Contact dermatitis Balance problem Right leg weakness Purple toe syndrome of right foot Swelling of right foot Vaginal discharge, bloody Right foot pain Onychomycosis Constipation Tremor of both hands Osteoporosis (~1999) Osteopenia (~1999) Gout (~1998) Mumps Chicken pox Hearing loss (~2008) Cataracts, bilateral (~2007) Herpes (~1989) Fibroids (~1992) Multiple sclerosis Surgical History Anesthesia History of hysterectomy (~1992) History of hernia repair (~2004) History of breast augmentation History of carpal tunnel release (~1984) Family History Father History of heart disease Hyperlipidemia Mother Liver disease Brother Parkinson's disease Grandfather Cancer Grandmother Cancer Social History household members: family and children Smoking Status: Former smoker alcohol intake: former Discharge Plan Discharge Plan Patient Disposition: Home Discharge orders & Medications Prescriptions: New baclofen 10 mg Tablet 10 mg PO TID Qty: 90 0RF pregabalin [Lyrica] 25 mg capsule 25 mg PO TID Qty: 90 1RF Continued venlafaxine [Effexor XR] 75 mg capsule,extended release 24hr 75 mg PO DAILY pregabalin 50 mg capsule 25 mg PO TID acyclovir 800 mg tablet 800 mg PO .PRN Rx Instructions: 1/2 tab 1-2 times daily unless active outbreak then increase to TID. cholecalciferol (vitamin D3) 1 cap PO DAILY diazepam 2 mg tablet 2 mg PO BID PRN (Reason: muscle spasm) Qty: 60 0RF Discontinued carbidopa-levodopa 25-100 mg tablet 2 tab PO TID baclofen 10 mg tablet See Rx Instructions PO TID Rx Instructions: Take 30mg TID orally orally three times a day; cyclobenzaprine 10 mg tablet 10 mg PO TID PRN (Reason: muscle spasm) Qty: 20 0RF tizanidine 4 mg tablet 1 mg PO TID Follow up/Referrals: Kaleb Oakley DO [Primary Care Provider, Family Practice] Visit Report/Discharge Packet Stand Alone Forms: Patient Portal/API, Stroke Signs & Symptoms Discharge Data Primary Care Provider: Kaleb Oakley VTE Deep Vein Thrombosis/Pulmonary Embolism Present on Admission: No
[2025-06-07] MEDS: PREGABALIN 25 MG CAPSULE PO (08:44)
[2025-06-07] MEDS: VENLAFAXINE ER 75 MG CAP PO (08:44)
[2025-06-07] MEDS: BACLOFEN 10 MG TABLET PO (08:44)
[2025-06-07] MEDS: SODIUM CHLORIDE 0.9% FLUSH 10 ML IV (08:45)
--- NOTE | 2025-06-07 09:37 | OT.IP.EVAL ---
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 Fibroids (~1992) Gout (~1998) Hearing loss (~2008) Herpes (~1989) Leg cramps, sleep related Multiple sclerosis Mumps Onychomycosis Osteopenia (~1999) Osteoporosis (~1999) Pelvic somatic dysfunction Purple toe syndrome of right foot Right foot pain Right leg weakness Sacral region somatic dysfunction Somatic dysfunction of lower extremity Stiffness of joint of right pelvic region and thigh Swelling of right foot Tremor of both hands Urinary frequency Vaginal discharge, bloody Surgical History (Last Reviewed 06/04/25 @ 18:12 by Antelmo Daniels MD) Anesthesia History of breast augmentation History of carpal tunnel release (~1984) History of hernia repair (~2004) History of hysterectomy (~1992) Occupational Therapy Inpatient Evaluation/Re-Eval M1 OT IP Prior Functional Status Start: 06/07/25 09:22 Freq: Status: Active Protocol: Document 06/07/25 09:22 [facility] (Rec: 06/07/25 09:36 [facility] Desktop) Medical Review Prior Functional Status Medical History Yes Reviewed Communication Able to make needs known. Mobility and Gait In the past, pt has ambulated w/rollator walker in home , used poles when walking outside the house. Was able to dress although needed assist for socks. Prepared own meals and had cleaning help 1x/wk. Lately pt has had more difficulty. Has a R AFO but hasn't used it lately because she thought her leg would become too weak if she used it too much. In the last week has had more difficulty with everything and more mm spasms. On she seemed more confused w/mm spasms, family tried giving her a warm bath but then couldn't get her out of the tub. Activities of Daily As above, has needed more assistance w/ADLs in past Living and IADL's week. Pt was mod I with BADLs, laundry, and medication mgmt. Social History Household Members family,children Living Arrangements House Number of Stairs To 2 from garage into house. Rails available. Enter/Railing? Home Environment Tub/Shower Home Equipment Shower Seat without Backrest,Grab Bars In Shower Additional Social Lives w/lindsay and her and 10 month old. History Comment Lindsay does not work outside the home but is busy with baby. M2 OT-IP Current Condition Start: 06/07/25 09:22 Freq: Status: Active Protocol: Document 06/07/25 09:22 [facility] (Rec: 06/07/25 09:36 [facility]) Occupational Therapy Current Condition Current Condition Evaluation Date 06/07/25 Treatment Diagnosis weakness, confusion, decreased self care Diagnosis Onset Date 06/04/25 M3 OT- IP Subjective and Pain Start: 06/07/25 09:22 Freq: Status: Active Protocol: Document 06/07/25 09:22 [facility] (Rec: 06/07/25 09:36 [facility]) OT- Subjective Occupational Therapy Visit Type Type Initial Evaluation Visit Start Time 08:40 Visit Stop Time 09:17 Occupational Therapy Visit Comments Patient Comments Pt was sitting up in chair with breakfast present. Pt agreed to participate in OT eval. Pts dtr arrived for the last few minute of the eval. Patient/Caregiver To return home Goals OT Pain Assessment Pain When Pain Assessed After Treatment Pain Present Pain Present Denied Pain M4 OT- IP ADL's Start: 06/07/25 09:22 Freq: Status: Active Protocol: Document 06/07/25 09:22 [facility] (Rec: 06/07/25 09:36 [facility]) OT [id number] General Evaluation Self-Feeding Ability Independent OT ADL-Grooming General Evaluation Grooming Ability Standby Assistance OT ADL-Oral Care Comments Oral Care Comments not observed OT ADL-Dressing General Eval Lower Body Dressing Standby Assistance Ability Comments OT Dressing Comments Pt doff/dons socks while seated by crossing legs. Pt declines additional dressing. OT ADL-Toileting General Evaluation Toileting Ability Standby Assistance OT ADL-Bathing Comments OT Bathing Comments not observed M5 OT- IP IADL's Start: 06/07/25 09:22 Freq: Status: Active Protocol: Document 06/07/25 09:22 [facility] (Rec: 06/07/25 09:36 [facility]) OT-Instrumental Activities of Daily Living Deficits IADL Deficits Deficits Identified Home Safety Awareness Awareness of Need Good Awareness for Assistance at Home Ability to Problem Able to Problem Solve Solve Emergency Situations Medication Management Medication No Deficits Identified Management Money Management Money Management No Deficits Identified Meal Preparation Meal Preparation may need assist prn Comments Geological Drafter Geological Drafter may need assist prn Comments Driving Driving Comments may need assist prn M6 OT- IP Functional Cognition Start: 06/07/25 09:22 Freq: Status: Active Protocol: Document 06/07/25 09:22 [facility] (Rec: 06/07/25 09:36 [facility]) Cognitive Factors Limiting Selfcare Function Cognitive Ability Level of Alertness Alert Patient Orientation Name,Age,Birthday,Month,Date,Year,Day of Week,Place, Situation Attention Span Capable of Focused Attention,Capable of Sustained Ability Attention Ability to Follow Able to Follow One Step Commands,Able to Follow Multi- Commands Step Commands Memory Description No Deficits Noted Problem Solving No deficits Noted Ability Cognitive Comments Cognitive Assessment Pt pulls herself up from the walker rather than pushing Comments up from the surface and does not reach back for chair when sitting. OT discussed her safety concerns with this habit, pt verbalizes understanding. OT- Vision and Hearing OT- Hearing Assessment OT- Hearing Right Ear Impaired,Left Ear Impaired,Use of Hearing Assessment Aids OT- Vision Assessment Visual Acuity WFL,Glasses For Reading M7 OT- IP Mobility and Balance Start: 06/07/25 09:22 Freq: Status: Active Protocol: Document 06/07/25 09:22 [facility] (Rec: 06/07/25 09:36 [facility]) OT-Transfer Assessment Sit to and From Stand Sit to and from Contact Guard Assistance Stand Transfers Transfer Ability Contact Guard Assistance Technique Transfer Destination Chair,Toilet Transfer Technique Stand Step Pivot Devices Transfer Assistive Gait Belt,Front Wheeled Walker Devices Orthotic/Prosthetic No Devices or Brace: OT- Gait Assessment Gait Gait Assistance Contact Guard Assist Required: Distance (Feet) 15 Assistive Devices Assistive Device Gait Belt,Front Wheeled Walker Orthotic/Prosthetic No Devices or Brace: OT- Balance Assessment Sitting Balance and Reactions Static Sitting Normal Balance Ability Dynamic Sitting Normal Balance Ability Standing Balance and Reactions Static Standing Good Balance Ability Dynamic Standing Fair Balance Ability M8 OT- IP Objective Assessments Start: 06/07/25 09:22 Freq: Status: Active Protocol: Document 06/07/25 09:22 [facility] (Rec: 06/07/25 09:36 [facility]) OT Gross Range of Motion Upper Extremity Range of Motion Assessment Within Functional Limits ROM Impairments B hands digits sway to ulnar side, arthritic changes B hands OT Strength Upper Extremity Strength Assessment Bilaterally Impaired Shoulder 4- Elbow 4+ Hand 5 Hand Environmental Sampling Technician Strength Hand Dominance Right OT- Coordination Assessment Upper Extremity Finger to Nose Test Within Functional Limits Finger Tapping Test Within Functional Limits Comments Coordination Pt has tremors in B hands. Pt uses Vikash device that Comments reduces her tremors with repeated sessions. OT Sensation Assessment Edema Edema Absent M9 OT- IP Assessment and Plan Start: 06/07/25 09:22 Freq: Status: Active Protocol: Document 06/07/25 09:22 [facility] (Rec: 06/07/25 09:36 [facility]) OT Summary Assessment and Plan Potential Rehabilitation Excellent Potential Analytic Complexity Moderate at Evaluation Summary OT Impairments Range of Motion,Strength,Balance,Functional Mobility, Dressing,Toileting,Bathing,Toilet Transfers,Shower Transfers,Activity Tolerance Progress Towards Progressing Toward Goals Goals Assessment Summary Pt is a 75 yo F who was admitted due to increased confusion and LE spasms. Pt has slow progressive phase 2 MS. Her grandson, his , and child live with her. Pt reports that until 1 week ago she was driving, prepared her own meals, did laundry, managed her medication, and was mod I with BADLs. Pt presents with decreased BADLs, muscle weakness, decreased functional mobility, and activity intolerance. Skilled OT services are appropriate to address these deficits and promote return towards PLOF. Pt would benefit from HH on dc home. Goals Grooming Goal Independent Dressing Goal Independent Toileting Goal Independent Bathing Goal Independent,Grab Bars,Hand Held Shower Sprayer Toilet Transfer Goal Independent Shower Transfer Goal Independent,Shower Chair,Grab Bars Days to Meet Goals 5 Frequency of Treatment Other frequency 5x/wk Treatment Plan OT Treatment Plan ADL Training,Functional Mobility,Therapeutic Exercises, Patient/Family Education,Discharge Planning Discharge Recommendations OT Discharge Home with Assistance,Home Health Recommendations Transportation Needs Private Vehicle at Discharge
--- NOTE | 2025-06-07 11:49 | CM.DPC ---
DCP Discharge Home with HH Per MD, pt is medically stable to d/c home today with family support and HH and completed orders. SW met bedside with pt and Dtr Juanita and they confirm that they feel pt can safely d/c home with HH today. SW provided [facility] brochure as they have the soonest available openings. Dtr very appreciative. Also provided Senior Guidebook and earmarked PP CG agencies to review for potential future need. GINGER secure emailed [facility] pt's F2F and HH orders and dc summary not yet available. [facility] confirms they have pt on their schedule for tomorrow. MANUEL Villanueva
--- NOTE | 2025-06-07 14:55 | PC.NURSE ---
Patient is A&OX4, VSS, afebrile on RA. She calls appropriately for assistance out of bed and to the bathroom. MD evaluates the patient and medically clears her for discharge home today with HH. Her daughter arrives at bedside this a.m. and is able to assist to dress her and OT is able to evaluate patient and work with her prior to discharge.She is able to shower and requests to have lunch prior to discharge. Both daughter and patient review medications and acknowledge understanding and agreement with meds as well as follow up with PCP and neurology. She is escorted by RN in w/ with all of her personal belongings to private vehicle with her daughter at 1250 pm this afternoon.
== END 2025-06-07 12:55 | disposition home health service (06) | DRG 58 ==
LOC: ED 12:56 → AC 17:26
PROVIDERS: Admitting Provider Hospitalist; Emergency Provider Student in an Organized Health Care Education/Training Program; Family Provider Internal Medicine; PCP Family Medicine; Referring Provider Student in an Organized Health Care Education/Training Program; Visit Provider Hospitalist
DX: G35 Multiple sclerosis (principal); G92.8 Other toxic encephalopathy; M48.061 Spinal stenosis, lumbar region without neurogenic claudication; R41.0 Disorientation, unspecified; R26.81 Unsteadiness on feet; T42.8X5A Adverse effect of antiparkinsonism drugs and other central muscle-tone depressants, initial encounter; Z86.19 Personal history of other infectious and parasitic diseases; Z66 Do not resuscitate; Z87.891 Personal history of nicotine dependence
CPT/HCPCS: 36415; 71045; 80048; 80053; 81001; 82962; 85025; 87086; 93005; 96361; 96374; 96375; 97116; 97162; 97166; 97530; 99284; J1885; J2272; J7030